=== PATIENT | female | born 1980 | race African-American/Black ===

== ENCOUNTER 2018-01-20 14:13 | Inpatient (IN) | payer MEDICARE, SELFPAY ==
[2018-01-20] VITALS (12 sets, daily range): BP systolic 127–160; BP diastolic 56–78; PULSE 78–99; RESP 11–21; TEMP 36.6–37.4; O2SAT 96–100; BMI 25.2; BMI 24.5
[2018-01-20 14:26] LABS: Bedside Glucose 497 mg/dL (70-110)
--- NOTE | 2018-01-20 14:39 | NURSING ---
NO OLD EKG'S IN MUSE
--- NOTE | 2018-01-20 14:52 | NURSING ---
NO OLD EKGS
[2018-01-20] MEDS: Morphine 4 MG/ML Syringe IV (14:53)
[2018-01-20] MEDS: Ondansetron 4 MG/2 ML Vial IV (14:53)
[2018-01-20] MEDS: 0.9% Normal Saline 1,000 ML 999 ML IV (14:53)
[2018-01-20 14:57] LABS: Absolute Lymphocyte Count 0.38 X10^3/ul (0.83-4.51); Absolute Neutrophil Count 5.8 X10^3/uL (2.0-7.7); Basophil# 0.01 X10^3/uL; Basophil% 0.2 % (0-1); Differential Indicated SCAN CRITERIA MET; Eosinophil# 0.01 X10^3/uL; Eosinophils% 0.2 % (0-5); Hematocrit 34.8 % (37-47); Hemoglobin 11.7 g/dl (12.0-15.0); Lymphocyte # 0.38 X10^3/ul (4.0); Lymphocyte % 5.9 % (19-41); Mean Corp Hgb Conc 33.6 g/gl (32-36); Mean Corpuscular Hgb 27.7 pg (27.0-32.0); Mean Corpuscular Volume 82.3 fL (81-99); Mean Platelet Vol. 12.1 fl (6.2-12.0); Monocyte# 0.25 X10^3/uL; Monocyte% 3.9 % (0-10); Neutrophil # 5.84 X10^3/uL (2.7-7.7); Neutrophil % 89.8 % (47-70); POSITIVE COUNT NO; POSITIVE DIFFERENTIAL YES; POSITIVE MORPHOLOGY NO; Platelet Count 184 K/mm3 (150-450); RBC Distribution Width CV 14.3 % (11.6-14.6); RBC Distribution Width SD 43.2 fl (35.1-43.9); Red Blood Count 4.23 M/mm3 (4.2-5.4); White Blood Count 6.5 K/mm3 (4.4-11.0)
[2018-01-20 15:01] LABS: Blood Gas Specimen Type VEN; Time Given 1450; VBG BASE EXCESS -5 mmol/L (-1.0-3.5); VBG Bicarbonate 20 mmol/L (22-26); VBG Oxygen Content 21 mmol/L (23-33); VBG PO2 50 mmHg (25-40); VBG SO2 85 % (50-70); VBG pCO2 33.7 mmHg (41-51); VBG pH 7.39 (7.32-7.42)
--- NOTE | 2018-01-20 15:10 | NURSING ---
CALLED [facility], TALKED TO TANGELA IN RELEASE OF INFO. HE IS GOING TO FAX RECENT DISCHARGE LEO , H AND P, MED LIST AND EKG
[2018-01-20 15:19] LABS: Anion Gap 14 (5-15); BUN 27 mg/dL (7-18); Calcium,Total 10.1 mg/dL (8.5-10.1); Chloride 100 mmol/L (98-107); Creatinine, Serum 2.07 mg/dL (0.55-1.02); EST Glomerular Filtration Rate 28 mL/min (>60); Est Glom Filt Rate - Afr Amer 34 mL/min (>60); Estimated Creatinine Clearance 34.16 ml/min; Glucose 556 mg/dL (74-106); Potassium 4.2 mmol/L (3.5-5.1); Sodium Level 134 mmol/L (136-145)
[2018-01-20 15:20] LABS: Bedside Glucose > 500 mg/dL (70-110)
[2018-01-20 15:23] LABS: Hemoglobin A1c 12.3 % (4.2-6.3)
--- NOTE | 2018-01-20 15:31 | NURSING ---
PER LAB PT GLUCOSE 556. DR HAYDEN AWARE, INSULIN ORDERED.
[2018-01-20] MEDS: Insulin Lispro 100 UNIT/ML INSULN.PEN 14 UNIT SC (15:39)
--- NOTE | 2018-01-20 16:01 | ED.VISSUMM ---
- ER Visit Summary Date of Service: 01/20/18 Chief Complaint: Back pain History of Present Illness: The patient is a 37 F who gets all of her health care at [facility]. She is a poor informant. She reports that she has back pain that began yesterday and believes this is because she is sleeping on a water bed. Patient also complains of chills. She has been nauseated and vomited 5 times. No blood or emesis. No chest pain, cough, or shortness of breath. No abdominal pain or diarrhea. No dysuria or frequency. She is on her menstrual cycle now. She has generalized weakness. Patient has a complicated past medical history. She has a history of type 1 diabetes mellitus that was diagnosed at 10 years of age. She has had a kidney transplant and toes amputated previously. She also has a history of a colostomy which has been reversed, tracheostomy, and debridement for necrotizing fasciitis. Physical Examination: Vitals: Stable. Afebrile. General: Well-nourished and well-developed. Head: Normocephalic atraumatic. Neck: Supple, no lymphadenopathy. No JVD. Nontender. Cardiovascular: Regular rate and rhythm. No murmurs. Respiratory: No respiratory distress. Clear to auscultation bilaterally. Abdominal: Soft, nontender, nondistended, normal bowel sounds. No guarding, rebound, or peritoneal signs. Back: Mild diffuse tenderness palpation over her lumbar spine the paraspinous muscular and lumbar region Extremities: Nontender, no edema. Skin: Normal color, no rash. Neurologic: Alert and oriented ?3. Cranial nerves II through XII are intact. Normal strength and sensation. Psych: Depressed affect. Test Results: EKG is sinus at 82 with a T-wave inversion in lead II. She has LVH with repolarization changes. This is unchanged from EKG obtained from [place] December 172016. CBC is more for an H&H 11.7 34.8, 7 neutrophils 90, lymphocytes 6. Chem-7 is more for sodium 134, CO2 20, glucose of 556, BUN 27, creatinine 2.07. Of note her last creatinine was 2.83. Serum ketones are negative. ABG shows pH 7.39 with bicarb of 33.7. Hemoglobin A1c is 12.3. Emergency Department Course and Treatment: Patient was given a dose of morphine and Zofran IV. She was given a dose of lispro subcu. Treatment Plan: Patient was discussed with Dr. Sen and she asked that we start the patient on a insulin drip. She will be admitted to the ICU for further evaluation and treatment. Disposition: Admitted in improved condition. Impression: 1. Hyperglycemia. 2. Insulin-dependent diabetes mellitus. 3. Back pain. 4. History of renal transplant. 5. Critical care time 30 minutes. This note was generated with [employer] dictation software. It may contain incorrect words, spelling, and punctuation that were not noted in review of the chart prior to signing ED Disposition - Plan for ED Patient: Chief Complaint: Hyperglycemia Referrals: Care Physician,No Primary [Primary Care Provider] -
--- NOTE | 2018-01-20 16:04 | NURSING ---
ICU HHS PAINTSIL
--- NOTE | 2018-01-20 16:07 | ED.DCSUM_ITS ---
- ER Visit Summary Date of Service: 01/20/18 Chief Complaint: Back pain History of Present Illness: The patient is a 37 F who gets all of her health care at [facility]. She is a poor informant. She reports that she has back pain that began yesterday and believes this is because she is sleeping on a water bed. Patient also complains of chills. She has been nauseated and vomited 5 times. No blood or emesis. No chest pain, cough, or shortness of breath. No abdominal pain or diarrhea. No dysuria or frequency. She is on her menstrual cycle now. She has generalized weakness. Patient has a complicated past medical history. She has a history of type 1 diabetes mellitus that was diagnosed at 10 years of age. She has had a kidney transplant and toes amputated previously. She also has a history of a colostomy which has been reversed, tracheostomy, and debridement for necrotizing fasciitis. Physical Examination: Vitals: Stable. Afebrile. General: Well-nourished and well-developed. Head: Normocephalic atraumatic. Neck: Supple, no lymphadenopathy. No JVD. Nontender. Cardiovascular: Regular rate and rhythm. No murmurs. Respiratory: No respiratory distress. Clear to auscultation bilaterally. Abdominal: Soft, nontender, nondistended, normal bowel sounds. No guarding, rebound, or peritoneal signs. Back: Mild diffuse tenderness palpation over her lumbar spine the paraspinous muscular and lumbar region Extremities: Nontender, no edema. Skin: Normal color, no rash. Neurologic: Alert and oriented ?3. Cranial nerves II through XII are intact. Normal strength and sensation. Psych: Depressed affect. Test Results: EKG is sinus at 82 with a T-wave inversion in lead II. She has LVH with repolarization changes. This is unchanged from EKG obtained from [place] December 172016. CBC is more for an H&H 11.7 34.8, 7 neutrophils 90 , lymphocytes 6. Chem-7 is more for sodium 134, CO2 20, glucose of 556, BUN 27 , creatinine 2.07. Of note her last creatinine was 2.83. Serum ketones are negative. ABG shows pH 7.39 with bicarb of 33.7. Hemoglobin A1c is 12.3. Emergency Department Course and Treatment: Patient was given a dose of morphine and Zofran IV. She was given a dose of lispro subcu. Treatment Plan: Patient was discussed with Dr. Sen and she asked that we start the patient on a insulin drip. She will be admitted to the ICU for further evaluation and treatment. Disposition: Admitted in improved condition. Impression: 1. Hyperglycemia. 2. Insulin-dependent diabetes mellitus. 3. Back pain. 4. History of renal transplant. 5. Critical care time 30 minutes. This note was generated with [employer] dictation software. It may contain incorrect words, spelling, and punctuation that were not noted in review of the chart prior to signing ED Disposition - Plan for ED Patient: Chief Complaint: Hyperglycemia Referrals: Care Physician,No Primary [Primary Care Provider] -
[2018-01-20 16:11] LABS: Bedside Glucose > 500 mg/dL (70-110)
--- NOTE | 2018-01-20 16:28 | HP.PCM_ITS ---
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 She is s/p kidney transplant in 2011 She had recently moved to the area a couple of weeks ago. Patient is a poor historian, who complains of generalized pain and does not render much information when asked. She says she has been compliant with her medications. States the last time she was admitted was 2 years ago. Denies any fever or chills or dizziness or palpitations. Admits to nausea and vomiting. She has blood sugar per EMS was 544. Sodium was 134, potassium 4.2, chloride was 100, bicarbonate was 20, anion gap was 14, BUN was 27, creatinine was 2.07. She was given 40 units of lispro in the ED. Repeat blood sugar in 30 minutes was more than 500. Patient was started on insulin drip Past Medical History Past Medical History (Chronic Problems): Chronic Problems Hyperglycemia due to type 1 diabetes mellitus (Chronic) DM type 1 (diabetes mellitus, type 1) (Chronic) 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) Allergies furosemide [From Lasix] Allergy (Verified 01/20/18 14:16) Hives Home Medications: Ambulatory Orders Medication Instructions Recorded Albuterol Sulfate [Proair Hfa] 2 puff INHALATION Q6H PRN PRN 01/20/18 Carvedilol [Coreg] 25 mg PO BID 01/20/18 Diphenhydramine HCl [Benadryl 25 mg PO QODAY 01/20/18 Allergy] Famotidine [Pepcid] 20 mg PO BID 01/20/18 Fluticasone 0.05% [Flonase Nasal 2 spray NASAL DAILY 01/20/18 [place]] Gabapentin [Neurontin] 300 mg PO Q12H 01/20/18 Insulin Aspart [Novolog Flexpen 10 - 15 units SC TIDCM 01/20/18 ([facility])] Insulin Glargine,Hum.rec.anlog 32 unit SQ QHS 01/20/18 [Lantus Solostar] Mycophenolate Mofetil 500 mg PO BID 01/20/18 Nifedipine [Nifedipine ER] 60 mg PO BID 01/20/18 Ondansetron HCl [Zofran] 4 mg PO Q8H PRN PRN 01/20/18 Oxycodone HCl [Roxicodone] 5 mg PO BID 01/20/18 Pravastatin [Pravachol] 40 mg PO QHS 01/20/18 Prednisone 5 mg PO DAILY 01/20/18 Tacrolimus Anhydrous [Prograf] 1 mg PO BID 01/20/18 Zolpidem Tartrate [Ambien] 10 mg PO QHS 01/20/18 Surgical History: appendectomy, - - Status post kidney transplant, poor wound debridement, diverting sigmoid colostomy on 07/06/2017, reversed on 07/07/2017, percutaneous tracheostomy, no longer has, left TMA Psychiatric History: No pertinent psych hx 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 Denies: Chills, Fever, Night Sweats, Weight Change Eyes: Denies: Blurred vision, Cataracts, Conjunctivae Inflammation, Pain, Redness, Vision Change HEENT: Denies: Difficulty Swallowing, Dysphasia, Head Aches, Hearing Changes, Nasal bleeding, Nasal Congestion, Sinus Congestion, Sinus Drainage Cardiovascular: Denies: Chest Pain, Claudication, Chest Pressure, Orthopnea, Palpitations, Paroxysmal Noc. Dyspnea Respiratory: Denies: Cough, Hemoptysis, Pleuritic Pain, Shortness of breath at rest, Shortness of breath upon exertion, Sputum production Gastrointestinal: Denies: Abdominal Pain, Constipation, Hematemesis, Hematochezia, Nausea, Vomiting Genitourinary: Denies: Dysuria, Frequency, Incontinence Musculoskeletal: Reports: Back Pain. Denies: Joint Pain, Joint stiffness, Joint swelling, Joint Tenderness Skin: Denies: Pruritis, Rash, Wounds Neurological: Denies: Numbness, Tingling, Focal weakness Psychiatric: Denies: Anxiety, Depression, Homicidal Ideations, Suicidal Ideations Hematologic/ Lymphatic: Denies: Easy Bruising, Easy Bleeding VTE Information - Inpt Only VTE Present on Admission: No VTE Pharm Prophylaxis ordered?: Yes Patient Problems: Active and Suspected Problems Hyperglycemia without ketosis (Acute) - Physical Exam General: Alert, Oriented x3, Cooperative, Lethargic HEENT: Atraumatic, PERRLA, EOMI, Normocephalic Oral: Dry Mucosa Neck: Supple Lungs: Clear to auscultation, Normal air movement Cardiovascular: Regular rate, Regular Rhythm, Normal S1, Normal S2, No murmurs Abdomen: Bowel Sounds Present, Soft, Non Tender, Non-Distended, No Hepato- splenomegaly Extremities: No edema Skin: - - Skin graft area with contractures Musculoskeletal: No Tenderness to Palpation of Joints or Extremities, - - Left TMA Lymphatic: No Cervical, Supraclavicular, or Inguinal Adenopathy Neurological: Cranial nerves II-XII grossly intact, Neuro grossly intact Psych/Mental Status: Normal Affect, Appropriate Vital Signs Temp Pulse Resp BP Pulse Ox 99.3 F H 81 16 146/78 H 99 01/20/18 14:17 01/20/18 16:10 01/20/18 16:10 01/20/18 16:10 01/20/18 16:10 Assessment/Plan All Active Problems Hyperglycemia without ketosis (Acute) 37 year old F with past medical history of type I DM(diabetic since age 10) status post kidney transplant, being managed by [facility], on Lantus 32 units daily, NovoLog 10-15 units 3 times daily. She is s/p kidney transplant in 2011 1. Acute HHS, no DKA seen, type I diabetic placated by retinopathy, neuropathy, vascular complication(s/p TMA) HbA1c is 12.3 anion gap is 14, started on insulin drip, patient is dehydrated, suspect patient is noncompliant with medications although she states otherwise. Plan: We will admit to PCU, hydrate with IV fluids, continue low insulin drip at 0.05 U/h, will switch to home Lantus with lispro pre-meal blood sugars drop below 250, BMP every hourly whilst on insulin drips but Q4hrly when off insulin drip. 2. Hypertension, controlled, on carvedilol, nifedipine, continue to monitor 3. CKD stage 3, status post kidney transplant, will continue on transplant medication 4. Back pain, likely muscleskeletal, continue on home as needed oxycodone 5. DVT PPx- Heparin SC Code Visit Inpatient E&M: 56931 Subs Hosp L2
[2018-01-20] MEDS: 0.9% Normal Saline 1,000 ML 125 ML IV (17:09)
[2018-01-20 17:26] LABS: Bedside Glucose 421 mg/dL (70-110)
[2018-01-20 18:15] LABS: Bedside Glucose 371 mg/dL (70-110)
[2018-01-20 18:49] LABS: BUN 27 mg/dL (7-18); Creatinine, Serum 1.96 mg/dL (0.55-1.02); Glucose 455 mg/dL (74-106)
[2018-01-20 18:50] LABS: Anion Gap 7 (5-15); BUN/Creat Ratio 13.8 RATIO (10-20); Calcium,Total 9.4 mg/dL (8.5-10.1); Chloride 106 mmol/L (98-107); EST Glomerular Filtration Rate 30 mL/min (>60); Est Glom Filt Rate - Afr Amer 37 mL/min (>60); Estimated Creatinine Clearance 36.08 ml/min; Potassium 3.6 mmol/L (3.5-5.1); Sodium Level 137 mmol/L (136-145)
[2018-01-20 19:36] LABS: Bedside Glucose 297 mg/dL (70-110)
[2018-01-20 20:16] LABS: Bedside Glucose 254 mg/dL (70-110)
[2018-01-20] MEDS: Mycophenolate Mofetil 250 MG Capsule 500 MG PO (21:25)
[2018-01-20] MEDS: Gabapentin 300 MG Capsule PO (21:25)
[2018-01-20] MEDS: Zolpidem Tartrate 5 MG Tablet 10 MG PO (21:25)
[2018-01-20] MEDS: Pravastatin 40 MG Tablet PO (21:25)
[2018-01-20] MEDS: Docusate Sodium 100 MG Capsule PO (21:25)
[2018-01-20] MEDS: NIFEdipine 60 MG Tablet PO (21:26)
[2018-01-20] MEDS: Tacrolimus Anhydrous 1 MG Capsule PO (21:26)
[2018-01-20] MEDS: Carvedilol 25 MG Tablet PO (21:26)
[2018-01-20 21:32] LABS: Anion Gap 9 (5-15); BUN 23 mg/dL (7-18); BUN/Creat Ratio 13.2 RATIO (10-20); Calcium,Total 9.5 mg/dL (8.5-10.1); Chloride 108 mmol/L (98-107); Creatinine, Serum 1.74 mg/dL (0.55-1.02); EST Glomerular Filtration Rate 35 mL/min (>60); Est Glom Filt Rate - Afr Amer 42 mL/min (>60); Estimated Creatinine Clearance 40.64 ml/min; Glucose 268 mg/dL (74-106); Potassium 3.7 mmol/L (3.5-5.1); Sodium Level 140 mmol/L (136-145)
[2018-01-20] MEDS: oxyCODONE 5 MG Tablet PO (21:34)
--- NOTE | 2018-01-20 22:08 | NURSING ---
Attempted IV restart x 2, unable to obtain. Called TERRI Cui [employer] to restart IV.
--- NOTE | 2018-01-20 23:37 | NURSING ---
patient received 6.64 units of humalog (insulin gtt) from [id number]
[2018-01-21] VITALS (11 sets, daily range): BP systolic 148–154; BP diastolic 72–78; PULSE 78–89; RESP 16–20; TEMP 36.6–37.7; O2SAT 97–100
[2018-01-21 00:01] LABS: Bedside Glucose 280 mg/dL (70-110)
[2018-01-21] MEDS: 0.9% Normal Saline 1,000 ML 75 ML IV ×2 (04:10→15:13)
[2018-01-21 05:00] LABS: Mucous, Urine 0 SEEN /hpf (<or=2+); White Blood Cells 0 SEEN /hpf (0-5)
[2018-01-21 05:03] LABS: Color, Urine Yellow (Yellow); Glucose, Dipstick 1000 mg/dl (Normal); Ketone-Dipstick 15 mg/dl (Negative); Leukocyte Esterase-Dipstick Negative /ul (Negative); Nitrite-Dipstick Negative (Negative); Occult Blood-Urine 250 /ul (Negative); Protein-Dipstick 30 mg/dl (Negative); Specific Gravity, Urine 1.005 (1.002-1.030); Urine Bilirubin Dipstick Negative (Negative); Urine Clarity Clear (Clear); Urine Urobilinogen Normal (Normal)
[2018-01-21 05:09] LABS: Bacteria RARE /hpf (None Seen); Red Blood Cells-Urine 0-5 SEEN /hpf (0-5); Squamous Epithelial Cells - UA 0-5 SEEN /hpf (5-10)
[2018-01-21 06:33] LABS: Anion Gap 9 (5-15); BUN 21 mg/dL (7-18); BUN/Creat Ratio 12.1 RATIO (10-20); Chloride 111 mmol/L (98-107); Creatinine, Serum 1.74 mg/dL (0.55-1.02); EST Glomerular Filtration Rate 35 mL/min (>60); Est Glom Filt Rate - Afr Amer 42 mL/min (>60); Estimated Creatinine Clearance 40.64 ml/min; Glucose 282 mg/dL (74-106); Sodium Level 141 mmol/L (136-145)
[2018-01-21 06:38] LABS: Absolute Lymphocyte Count 0.51 X10^3/ul (0.83-4.51); Absolute Neutrophil Count 4.5 X10^3/uL (2.0-7.7); Basophil# 0.01 X10^3/uL; Basophil% 0.2 % (0-1); Hematocrit 32.8 % (37-47); Hemoglobin 10.9 g/dl (12.0-15.0); Lymphocyte # 0.51 X10^3/ul (4.0); Lymphocyte % 9.6 % (19-41); Mean Corp Hgb Conc 33.2 g/gl (32-36); Mean Corpuscular Hgb 27.4 pg (27.0-32.0); Mean Corpuscular Volume 82.4 fL (81-99); Mean Platelet Vol. 12.1 fl (6.2-12.0); Monocyte# 0.36 X10^3/uL; Monocyte% 6.7 % (0-10); Neutrophil # 4.46 X10^3/uL (2.7-7.7); Neutrophil % 83.5 % (47-70); Platelet Count 184 K/mm3 (150-450); RBC Distribution Width CV 14.6 % (11.6-14.6); RBC Distribution Width SD 44.3 fl (35.1-43.9); Red Blood Count 3.98 M/mm3 (4.2-5.4); White Blood Count 5.3 K/mm3 (4.4-11.0)
[2018-01-21 06:46] LABS: Differential Indicated SCAN CRITERIA MET; POSITIVE COUNT NO; POSITIVE DIFFERENTIAL YES; POSITIVE MORPHOLOGY NO
[2018-01-21 06:55] LABS: Bedside Glucose 276 mg/dL (70-110)
[2018-01-21 07:10] LABS: Differential Comment SCANNED
[2018-01-21] MEDS: Insulin Lispro 100 UNIT/ML INSULN.PEN SC ×3 (08:33→16:27)
[2018-01-21] MEDS: predniSONE 5 MG Tablet PO (08:34)
[2018-01-21] MEDS: Mycophenolate Mofetil 250 MG Capsule 500 MG PO ×2 (08:35→22:15)
[2018-01-21] MEDS: Docusate Sodium 100 MG Capsule PO ×2 (08:36→22:15)
[2018-01-21] MEDS: Carvedilol 25 MG Tablet PO ×2 (08:36→22:14)
[2018-01-21] MEDS: Fluticasone 0.05% 1 SPRAY NASAL.SRY 2 SPRAY NASAL (08:36)
[2018-01-21] MEDS: Famotidine 20 MG Tablet PO (08:37)
[2018-01-21] MEDS: Gabapentin 300 MG Capsule PO ×2 (08:37→22:15)
[2018-01-21] MEDS: NIFEdipine 60 MG Tablet PO ×2 (08:38→22:13)
[2018-01-21] MEDS: Tacrolimus Anhydrous 1 MG Capsule PO ×2 (08:38→22:14)
[2018-01-21 10:10] LABS: Bedside Glucose 230 mg/dL (70-110)
[2018-01-21] MEDS: Acetaminophen 325 MG Tablet 650 MG PO (10:34)
[2018-01-21] MEDS: Morphine 2 MG/ML Syringe 1 MG IV ×2 (10:35→22:13)
[2018-01-21] MEDS: Insulin Lispro 100 UNIT/ML INSULN.PEN 10 UNIT SC ×2 (11:25→16:27)
[2018-01-21 11:41] LABS: Bedside Glucose 269 mg/dL (70-110)
--- NOTE | 2018-01-21 12:00 | CASEMGMT ---
SEE TERRI PINZON ASSESS LINK: D/C PLAN: Home Intro role to TERRI PINZON. Pt resting in bed, awake. @ bedside. Pt and willing to participate in assessment and all questions answered. Pt states just moved here from [place] and has not established PCP yet. Given list of local PCP's in [facility]. Pt also reports she does have insurance but could not find her Insurance card. Pt reports she has Medicare and Medicaid. Pt reports she has a glucometer @ home and states that it is working but states, I should probably get a new one. Pt declines offer of TERRI PINZON to get script for a new glucometer, stating that she gets all of her diabetic supplies and meds via [facility] and that she gets it all free and prefers to go through them. Pt reports she just recently filed paperwork for assistance with housing. Pt reports she has a lot of family support and declines any SNF or HHC at this time. Referral made to Mae BARRIGA for Adv Directives and for financial issues/resources in the Community. CM to follow for discharge planning needs that may arise. Cristhian MARYN TERRI PINZON
--- NOTE | 2018-01-21 13:22 | CASEMGMT ---
Social Work: Met with patient in room with present. Patient listed as self pay but patient indicates that she has both Medicare and Medicaid ([place]). Patient provided this SW with Medicare number. Patient states she is aware of the process needed to transfer her Medicaid to [place] and plans to work on this when she is discharged from hospital. Patient also requesting information on Advanced Directives. TC to in PFS. looked up Medicare number on the Medicare system and patient is showing eligible. updated [place] with patient's insurance information. Spoke with patient and in room again. Patient aware that Medicare information is updated in [facility] system. Patient also given Advance Directive forms but does not want to fill them out yet at this point. TERRI Stover, CM updated. Sw to continue to follow to assist as needed if needs arise. NANY Rodriguez
--- NOTE | 2018-01-21 14:41 | PCM.PN.HOSP ---
Patient Problems: Active and Suspected Problems Hyperglycemia without ketosis (Acute) Subjective: Patient was seen and examined. Complains of severe back pain. Blood sugars are better controlled Objective: Physical Exam General: Alert, Oriented x3, Cooperative, Lethargic HEENT: Atraumatic, PERRLA, EOMI, Normocephalic Oral: Dry Mucosa Neck: Supple Lungs: Clear to auscultation, Normal air movement Cardiovascular: Regular rate, Regular Rhythm, Normal S1, Normal S2, No murmurs Abdomen: Bowel Sounds Present, Soft, Non Tender, Non-Distended, No Hepato-splenomegaly Extremities: No edema Skin: - - Skin graft area with contractures Musculoskeletal: No Tenderness to Palpation of Joints or Extremities, - - Left TMA Lymphatic: No Cervical, Supraclavicular, or Inguinal Adenopathy Neurological: Cranial nerves II-XII grossly intact, Neuro grossly intact Psych/Mental Status: Normal Affect, Appropriate Vitals/I&O's: Vital Signs Temp Pulse Resp BP Pulse Ox 98 F 86 16 150/78 H 97 01/21/18 09:38 01/21/18 10:54 01/21/18 09:38 01/21/18 09:38 01/21/18 09:38 Oxygen Delivery Method Room Air Weight: 70.4 kg Body Mass Index (BMI) 24.5 Finger Stick Blood Glucose 254 Intake and Output for Last 24 Hours 01/19/18 01/20/18 01/21/18 23:59 23:59 23:59 Intake Total 1994. / 1994.1 1234 / 1234 Output Total 450 / 450 Balance 1545.1 / 1545.1 1234 / 1234 Laboratory Results 01/20/18 17:05: Sodium 137, Potassium 3.6, Chloride 106, Carbon Dioxide 24.0, Anion Gap 7, BUN 27 H, Creatinine 1.96 H, Estim Creat Clear Calc 36.08, Est GFR (MDRD) Af Amer 37 L, Est GFR (MDRD) Non-Af 30 L, BUN/Creatinine Ratio 13.8, Glucose 455 H*, Calcium 9.4 01/20/18 17:05: Troponin I < 0.015 01/20/18 17:12: POC Glucose 421 H 01/20/18 18:08: POC Glucose 371 H 01/20/18 19:07: POC Glucose 297 H 01/20/18 20:06: POC Glucose 254 H 01/20/18 20:38: Sodium 140, Potassium 3.7, Chloride 108 H, Carbon Dioxide 23.0, Anion Gap 9, BUN 23 H, Creatinine 1.74 H, Estim Creat Clear Calc 40.64, Est GFR (MDRD) Af Amer 42 L, Est GFR (MDRD) Non-Af 35 L, BUN/Creatinine Ratio 13.2, Glucose 268 H, Calcium 9.5 01/20/18 20:38: Troponin I 0.023 01/20/18 21:06: POC Glucose 230 H 01/20/18 23:54: POC Glucose 280 H 01/20/18 : Urine Color Yellow, Urine Clarity Clear, Urine pH 7.0, Ur Specific [place] 1.005, Urine Protein 30 H, Urine Glucose (UA) 1000 H, Urine Ketones 15 H, Urine Occult Blood 250 H, Urine Nitrite Negative, Urine Bilirubin Negative, Urine Urobilinogen Normal, Ur Leukocyte Esterase Negative, Urine RBC 0-5 SEEN, Urine WBC 0 SEEN, Ur Squamous Epith Cells 0-5 SEEN, Urine Bacteria RARE, Urine Mucus 0 SEEN 01/21/18 05:37: WBC 5.3, RBC 3.98 L, Hgb 10.9 L, Hct 32.8 L, MCV 82.4, MCH 27.4, MCHC 33.2, RDW 14.6, RDW Differential 44.3 H, Plt Count 184, MPV 12.1 H, Immature Gran % (Auto) 0.000, Neut % (Auto) 83.5 H, Lymph % (Auto) 9.6 L, [place] % (Auto) 6.7, Eos % (Auto) 0.0, Baso % (Auto) 0.2, Absolute Neuts (auto) 4.5, Absolute Lymphs (auto) 0.51 L, Total Counted Not Reportable, Differential Comment SCANNED 01/21/18 05:37: Sodium 141, Potassium 4.0, Chloride 111 H, Carbon Dioxide 21.0, Anion Gap 9, BUN 21 H, Creatinine 1.74 H, Estim Creat Clear Calc 40.64, Est GFR (MDRD) Af Amer 42 L, Est GFR (MDRD) Non-Af 35 L, BUN/Creatinine Ratio 12.1, Glucose 282 H, Calcium 9.0, Magnesium 2.0 01/21/18 06:45: POC Glucose 276 H 01/21/18 11:21: POC Glucose 269 H Current Medications Acetaminophen (Tylenol) 650 mg PO Q6H PRN PRN PRN Reason: PAIN Last Admin: 01/21/18 10:34 Dose: 650 mg Carvedilol (Coreg) 25 mg PO BID [facility] Last Admin: 01/21/18 08:36 Dose: 25 mg Dextrose (D50w Syringe) 0 gm IV X1 PRN; Protocol PRN Reason: HYPOGLYCEMIA Dextrose (D50w Syringe) 0 gm IV X1 PRN; Protocol PRN Reason: Hypoglycemia Diphenhydramine HCl (Benadryl) 25 mg PO QODAY [facility] Docusate Sodium (Colace) 100 mg PO BID [facility] Last Admin: 01/21/18 08:36 Dose: 100 mg Famotidine (Pepcid) 20 mg PO DAILY [facility] Last Admin: 01/21/18 08:37 Dose: 20 mg Fluticasone Propionate (Flonase Nasal [place]) 2 spray NASAL DAILY [facility] Last Admin: 01/21/18 08:36 Dose: 2 spray Gabapentin (Neurontin) 300 mg PO BID [facility] Last Admin: 01/21/18 08:37 Dose: 300 mg Glucagon () 1 mg IM .X1 PRN PRN Reason: Hypoglycemia Heparin Sodium (Porcine) (Heparin Na) 5,000 unit SC Q8 [facility] Last Admin: 01/21/18 12:53 Dose: Not Given Sodium Chloride () 1,000 mls @ 999 mls/hr IV .Q1H1M ONE Last Admin: 01/20/18 14:53 Dose: 999 mls/hr Sodium Chloride () 1,000 mls @ 75 mls/hr IV .[id number] [facility] Last Admin: 01/21/18 04:10 Dose: 75 mls/hr Insulin Glargine (Lantus (Bkc)) 32 units SC QHS [facility] Insulin Human Lispro (Humalog Kwikpen (Bkc)) 0 unit SC ACHS [facility] PRN Reason: Protocol Last Admin: 01/21/18 11:25 Dose: 9 u Insulin Human Lispro (Humalog Kwikpen (Bkc)) 10 unit SC TIDCM [facility] Last Admin: 01/21/18 11:25 Dose: 10 u Magnesium Hydroxide (Milk Of Magnesia) 30 ml PO DAILY PRN PRN Reason: Constipation Menthol (Bengay Vanishing Scent) 1 applic TOPICAL 4X/DAY PRN PRN PRN Reason: pain Morphine Sulfate () 1 mg IV Q4H PRN PRN PRN Reason: SEVERE PAIN (6-10/10) Last Admin: 01/21/18 10:35 Dose: 1 mg Mycophenolate Mofetil (Cellcept) 500 mg PO BID [facility] Last Admin: 01/21/18 08:35 Dose: 500 mg Nifedipine (Procardia Xl) 60 mg PO BID [facility] Last Admin: 01/21/18 08:38 Dose: 60 mg Oxycodone HCl (Oxyir) 5 mg PO Q6H PRN PRN PRN Reason: SEVERE PAIN (6-1010) Last Admin: 01/20/18 21:34 Dose: 5 mg Pravastatin Sodium (Pravachol) 40 mg PO QHS [facility] Last Admin: 01/20/18 21:25 Dose: 40 mg [facility] () [facility] Last Admin: 01/21/18 08:34 Dose: 5 mg Psyllium Hydrophilic Mucilloid (Metamucil) 1 packet PO DAILY PRN PRN PRN Reason: CONSTIPATION Sodium Chloride () 5 - 30 ml IV UD PRN PRN Reason: SALINE FLUSH Tacrolimus (Prograf) 1 mg PO BID [facility] Last Admin: 01/21/18 08:38 Dose: 1 mg Zolpidem Tartrate (Ambien (Generic)) 10 mg PO QHS [facility] Last Admin: 01/20/18 21:25 Dose: 10 mg Medical Necessity - Tobacco Use Smoking Status: Never smoker Tobacco Use: Non-smoker Assessment/Plan All Active Problems Hyperglycemia without ketosis (Acute) 37 year old F with past medical history of type I DM(diabetic since age 10) status post kidney transplant, being managed by [facility], on Lantus 32 units daily, NovoLog 10-15 units 3 times daily. She is s/p kidney transplant in 2011 1. Acute HHS, resolved, BS are better controlled. Patient admits to having missed her Lantus insulin but was taking only lispro because someone took a Lantus. 2. Type I DM, complicated by retinopathy, neuropathy and vascular complications status post TMA, HbA1c is 12.3, blood sugars are better controlled, will continue on patient's home insulin 3. Hypertension, controlled, on carvedilol, nifedipine, continue to monitor 4. CKD stage 3, status post kidney transplant, will continue on transplant medication 5. Back pain, likely muscleskeletal, continue on Tylenol, trial of Flexeril, oxycodone 6. DVT PPx- Heparin SC Code Visit Inpatient E&M: 90546 Subs Hosp L2
[2018-01-21 16:36] LABS: Bedside Glucose 192 mg/dL (70-110)
[2018-01-21 22:11] LABS: Bedside Glucose 116 mg/dL (70-110)
[2018-01-21] MEDS: Zolpidem Tartrate 5 MG Tablet 10 MG PO (22:14)
[2018-01-21] MEDS: oxyCODONE 5 MG Tablet PO (22:14)
[2018-01-21] MEDS: Pravastatin 40 MG Tablet PO (22:15)
[2018-01-22] MEDS: 0.9% Normal Saline 1,000 ML 75 ML IV (01:10)
[2018-01-22 02:15] VITALS: BP 142/71; PULSE 87; RESP 16; TEMP 37.5; O2SAT 97
[2018-01-22 02:56] VITALS: PULSE 86
[2018-01-22 07:00] LABS: Bedside Glucose 140 mg/dL (70-110)
[2018-01-22 07:12] VITALS: PULSE 88
[2018-01-22 08:15] VITALS: BP 154/59; PULSE 90; RESP 16; TEMP 37.9; O2SAT 100
[2018-01-22] MEDS: Fluticasone 0.05% 1 SPRAY NASAL.SRY 2 SPRAY NASAL (09:24)
[2018-01-22] MEDS: Tacrolimus Anhydrous 1 MG Capsule PO (09:25)
[2018-01-22] MEDS: Carvedilol 25 MG Tablet PO (09:25)
[2018-01-22] MEDS: Famotidine 20 MG Tablet PO (09:25)
[2018-01-22] MEDS: Gabapentin 300 MG Capsule PO (09:25)
[2018-01-22] MEDS: DiphenhydrAMINE 25 MG Capsule PO (09:26)
[2018-01-22] MEDS: Mycophenolate Mofetil 250 MG Capsule 500 MG PO (09:26)
[2018-01-22] MEDS: predniSONE 5 MG Tablet PO (09:26)
[2018-01-22] MEDS: NIFEdipine 60 MG Tablet PO (09:26)
[2018-01-22] MEDS: Insulin Lispro 100 UNIT/ML INSULN.PEN 10 UNIT SC (09:29)
[2018-01-22] MEDS: Morphine 2 MG/ML Syringe 1 MG IV (09:35)
[2018-01-22 09:36] LABS: Anion Gap 7 (5-15); BUN 15 mg/dL (7-18); BUN/Creat Ratio 7.8 RATIO (10-20); Calcium,Total 8.4 mg/dL (8.5-10.1); Chloride 111 mmol/L (98-107); Creatinine, Serum 1.93 mg/dL (0.55-1.02); EST Glomerular Filtration Rate 31 mL/min (>60); Est Glom Filt Rate - Afr Amer 37 mL/min (>60); Estimated Creatinine Clearance 36.64 ml/min; Glucose 141 mg/dL (74-106); Potassium 3.6 mmol/L (3.5-5.1); Sodium Level 142 mmol/L (136-145)
[2018-01-22] MEDS: Acetaminophen 325 MG Tablet 650 MG PO (09:36)
--- NOTE | 2018-01-22 11:15 | PCM.DC ---
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) Reason(s) for Visit for Discharge Instructions: Hyperglycemia, Acute kidney injury on Chronic kidney disease You will use the following diet at home:: Calorie/Carbohydrate Controlled (specify 1200, 1400, etc), Renal (restricted protein/sodium) Your food should be the consistency of: Regular Your liquids should be the consistency of: Regular/Thin Discharge Activity: Return to Normal Activity Allergies/Adverse Reactions: Allergies furosemide [From Lasix] Allergy (Verified 01/20/18 14:16) Hives Medications to take at Discharge Albuterol Sulfate [Proair Hfa] 2 puff INHALATION Q6H PRN PRN 01/20/18 Carvedilol [Coreg] 25 mg PO BID 01/20/18 Diphenhydramine HCl [Benadryl Allergy] 25 mg PO QODAY 01/20/18 Famotidine [Pepcid] 20 mg PO BID 01/20/18 Fluticasone 0.05% [Flonase Nasal [place]] 2 spray NASAL DAILY 01/20/18 Gabapentin [Neurontin] 300 mg PO Q12H 01/20/18 Insulin Aspart [Novolog Flexpen] 10 - 15 units SC TIDCM 01/20/18 Insulin Glargine,Hum.rec.anlog [Lantus Solostar] 32 unit SQ QHS 01/20/18 Mycophenolate Mofetil 500 mg PO BID 01/20/18 Nifedipine [Nifedipine ER] 60 mg PO BID 01/20/18 Ondansetron HCl [Zofran] 4 mg PO Q8H PRN PRN 01/20/18 Oxycodone HCl [Roxicodone] 5 mg PO BID 01/20/18 Pravastatin [Pravachol] 40 mg PO QHS 01/20/18 Prednisone 5 mg PO DAILY 01/20/18 Tacrolimus Anhydrous [Prograf] 1 mg PO BID 01/20/18 Zolpidem Tartrate [Ambien] 10 mg PO QHS 01/20/18 Acetaminophen [Tylenol Tablet] 650 mg PO Q6H PRN PRN tablet 01/22/18 Cyclobenzaprine [Flexeril] 10 mg PO TID PRN #10 tab 01/22/18 The following prescriptions were given: Cyclobenzaprine [Flexeril] 10 mg PO TID PRN #10 tab PRN Reason: Severe Pain (-03/12) Orders to be completed after discharge: Basic Metabolic Profile (BMP) Time Frame: 1 Week, Location: Laboratory CBC W/Diff, Automated Time Frame: 1 Week, Location: Laboratory Primary Care Physician: Care Physician,No Primary [Primary Care Provider] - Please follow up with your Primary Care Physician in: within 1-2 weeks Test Results: Test results from this visit will be discussed in further detail at your follow-up appointment, if applicable. When: Pipe Out Worker - make appointment within 2 weeks When: Time Analysis Clerk -make appointment within 2 weeks Proposed Discharge Date: 01/22/18
--- NOTE | 2018-01-22 11:18 | PCM.DC.SUM ---
Discharge Date and Diagnosis Date of Admission: 01/20/18 Date of Discharge: 01/22/18 - Primary Discharge Diagnosis Active and Suspected Problems Hyperglycemia without ketosis (Acute) Acute back pain, musculoskeletal - Secondary Discharge Diagnosis Chronic Problems Hyperglycemia due to type 1 diabetes mellitus (Chronic) DM type 1 (diabetes mellitus, type 1) (Chronic) 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 Correlation with ultrasound is recommended. Atrophy of the [place] kidneys. A transplanted kidney is seen in the right lower abdomen. Electronically Signed: Roger Griffith MD at 12:26 EDT Tel [phone], Service support , None Operations: None Procedures: None Summary of Care Provided: 37 year old F with past medical history of type I DM(diabetic since age 10) status post kidney transplant, being managed by [facility], on Lantus 32 units daily, NovoLog 10-15 units 3 times daily. She is s/p kidney transplant in 2011, missed a couple of doses of her Lantus, comes in with hyperglycemia, lethargy and complains of severe back pain. 1. Acute HHS, resolved, blood sugars were better controlled with short term IV insulin, later resumed on her home regimen, prescriptions given for home Lantus and lispro. 2. Type I DM, complicated by retinopathy, neuropathy and vascular complications status post TMA, HbA1c is 12.3, managed as above. 3. Hypertension, controlled, on carvedilol, nifedipine 4. CKD stage 3, status post kidney transplant, on post transplant medications 5. Back pain, likely muscleskeletal, managed on Tylenol, trial of Flexeril, oxycodone Discharge Diet: Low fat/ Low Cholesterol, 2000 mg Sodium Diet, Carb Control Diet, Renal Diet Discharge Activity: Return to Normal Activity Home Medications: Medications to take at Discharge Albuterol Sulfate [Proair Hfa] 2 puff INHALATION Q6H PRN PRN 01/20/18 Carvedilol [Coreg] 25 mg PO BID 01/20/18 Diphenhydramine HCl [Benadryl Allergy] 25 mg PO QODAY 01/20/18 Famotidine [Pepcid] 20 mg PO BID 01/20/18 Fluticasone 0.05% [Flonase Nasal [place]] 2 spray NASAL DAILY 01/20/18 Gabapentin [Neurontin] 300 mg PO Q12H 01/20/18 Mycophenolate Mofetil 500 mg PO BID 01/20/18 Nifedipine [Nifedipine ER] 60 mg PO BID 01/20/18 Ondansetron HCl [Zofran] 4 mg PO Q8H PRN PRN 01/20/18 Oxycodone HCl [Roxicodone] 5 mg PO BID 01/20/18 Pravastatin [Pravachol] 40 mg PO QHS 01/20/18 Prednisone 5 mg PO DAILY 01/20/18 Tacrolimus Anhydrous [Prograf] 1 mg PO BID 01/20/18 Zolpidem Tartrate [Ambien] 10 mg PO QHS 01/20/18 Acetaminophen [Tylenol Tablet] 650 mg PO Q6H PRN PRN tablet 01/22/18 Cyclobenzaprine [Flexeril] 10 mg PO TID PRN #10 tab 01/22/18 Insulin Aspart [Novolog Flexpen] 10 - 15 units SC TIDCM #1 flexpen 01/22/18 Insulin Detemir [Levemir] 32 unit SQ DAILY #1 vial 01/22/18 Following Prescrptions Were Given to Patient: Insulin Detemir [Levemir] 32 unit SQ DAILY #1 vial Cyclobenzaprine [Flexeril] 10 mg PO TID PRN #10 tab PRN Reason: Severe Pain (-03/12) Insulin Aspart [Novolog Flexpen] 10 - 15 units SC TIDCM #1 flexpen Primary Care Physician: Care Physician,No Primary [Primary Care Provider] - Please follow up with your Primary Care Physician in: within 1-2 weeks When: Content Manager - make appointment within 2 weeks When: Inside Solar Sales Consultant -make appointment within 2 weeks Disposition: Home Minutes spent on discharge:: 45 Patient Condition:: Stable Medical Necessity - Tobacco Use Smoking Status: Never smoker Tobacco Use: Non-smoker Meaningful Use Info Meaningful Use Diagnoses (Choose all that apply): None applicable Code Visit Inpatient E&M: 42849 [facility]
--- NOTE | 2018-01-22 11:45 | CASEMGMT ---
TERRI PINZON NOTE: Spoke with pt re: PT/OT evaluation and recommendation for further Skilled therapy. Pt declines out-pt or HHC services at this time. Pt reports she has made an appt with a PCP in this area. Advised pt to discuss therapy options with her PCP if she decides later she would like some further therapy as an out-pt. Pt voices understanding. Cristhian CARDENAS RN, CM
--- NOTE | 2018-01-22 12:07 | NURSING ---
Pt diaphoretic, and drowsy-checked blood sugar = 47-drank orange juice x2 and is ordering lunch. Will notify
[2018-01-22 12:51] LABS: Bedside Glucose 47 mg/dL (70-110)
[2018-01-22 12:51] LABS: Bedside Glucose 148 mg/dL (70-110)
--- NOTE | 2018-01-22 15:45 | CASEMGMT ---
Addendum entered by Jolanta Hernandez 01/22/18 18:22: Script for small base quad cane obtained and faxed to [facility] @ [phone]. Original Note: Pt to be discharged and requesting cane. Pt reports she used to have one but it broke about a year ago. PT recommended small base quad cane. Offered to have [facility] deliver the cane to her room but pt and state they prefer to pick it up from [facility] on their way home from the hospital. Will obtain script from and fax to [facility].
== END 2018-01-22 15:48 | disposition home or self-care (01) | DRG 638 ==
LOC: ED 14:48 → PCU 16:25
PROVIDERS: Admitting Provider Internal Medicine; Emergency Provider Emergency Medicine; Visit Provider Internal Medicine
DX: E10.65 Type 1 diabetes mellitus with hyperglycemia (principal); Z94.0 Kidney transplant status; Z79.4 Long term (current) use of insulin; E10.22 Type 1 diabetes mellitus with diabetic chronic kidney disease; N18.3 Chronic kidney disease, stage 3 (moderate); Z89.432 Acquired absence of left foot; E10.319 Type 1 diabetes mellitus with unspecified diabetic 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; I12.9 Hypertensive chronic kidney disease with stage 1 through stage 4 chronic kidney disease, or unspecified chronic kidney disease; M54.9 Dorsalgia, unspecified; E10.40 Type 1 diabetes mellitus with diabetic neuropathy, unspecified
CPT/HCPCS: 36415; 74176; 80048; 81001; 82009; 82803; 82962; 83036; 83735; 84484; 85025; 93005; 97162; 97166; 99285; J7030; A4216; J2405

== ENCOUNTER 2018-01-27 13:41 | Inpatient (IN) | payer MEDICARE, SELFPAY ==
[2018-01-27] VITALS (25 sets, daily range): BP systolic 91–120; BP diastolic 54–73; PULSE 77–98; RESP 12–29; TEMP 37.4–39.2; O2SAT 80–96; BMI 25.8; BMI 24.7
[2018-01-27 14:05] LABS: Bedside Glucose 112 mg/dL (70-110)
[2018-01-27] MEDS: 0.9% Normal Saline 1,000 ML 250 ML IV ×2 (14:15→18:45)
[2018-01-27 14:41] LABS: Absolute Lymphocyte Count 0.35 X10^3/ul (0.83-4.51); Absolute Neutrophil Count 8.3 X10^3/uL (2.0-7.7); Basophil# 0.01 X10^3/uL; Basophil% 0.1 % (0-1); Eosinophil# 0.02 X10^3/uL; Eosinophils% 0.2 % (0-5); Hemoglobin 10.1 g/dl (12.0-15.0); Lymphocyte # 0.35 X10^3/ul (4.0); Lymphocyte % 3.8 % (19-41); Mean Corp Hgb Conc 36.1 g/gl (32-36); Mean Corpuscular Hgb 28.1 pg (27.0-32.0); Mean Corpuscular Volume 77.8 fL (81-99); Mean Platelet Vol. 12.3 fl (6.2-12.0); Monocyte# 0.49 X10^3/uL; Monocyte% 5.3 % (0-10); Neutrophil # 8.27 X10^3/uL (2.7-7.7); Platelet Count 163 K/mm3 (150-450); RBC Distribution Width CV 13.9 % (11.6-14.6); RBC Distribution Width SD 37.9 fl (35.1-43.9); White Blood Count 9.3 K/mm3 (4.4-11.0)
[2018-01-27] MEDS: Albuterol 2.5 MG/3 ML VIAL.NEB. INHALATION (14:45)
[2018-01-27] MEDS: Ipratropium/Albuterol Sulfate 3 ML AMPUL.NEB INHALATION ×2 (14:45→20:21)
[2018-01-27] MEDS: Acetaminophen 500 MG Tablet 1000 MG PO ×2 (14:47→17:44)
[2018-01-27 14:52] LABS: International Normalized Ratio 1.1; Prothrombin Time (Protime)PT. 14.6 SECONDS (11.7-14.9)
[2018-01-27 14:53] LABS: Partial Thromboplast Time 37.8 Seconds (24.1-36.2)
[2018-01-27 14:55] LABS: Differential Indicated SCAN CRITERIA MET; POSITIVE COUNT NO; POSITIVE DIFFERENTIAL YES; POSITIVE MORPHOLOGY NO
[2018-01-27 15:05] LABS: Hypochromasia 1+; Microcytosis 1+; Platelet Estimate ADEQUATE (ADEQ); Platelet Morphology LARGE
[2018-01-27 15:11] LABS: Bedside Glucose 130 mg/dL (70-110)
[2018-01-27 15:17] LABS: ALB/GLOB Ratio 0.4 RATIO (0.9-2.4); AST(SGOT) 43 U/L (15-37); Alanine Aminotransfer ALT/SGPT 14 U/L (13-56); Albumin, Serum 2.4 g/dL (3.2-5.0); Alkaline Phosphatase 61 U/L (45-117); Anion Gap 11 (5-15); BUN 40 mg/dL (7-18); BUN/Creat Ratio 10.1 RATIO (10-20); Calcium,Total 9.5 mg/dL (8.5-10.1); Chloride 101 mmol/L (98-107); Creatinine, Serum 3.96 mg/dL (0.55-1.02); EST Glomerular Filtration Rate 13 mL/min (>60); Est Glom Filt Rate - Afr Amer 16 mL/min (>60); Estimated Creatinine Clearance 17.86 ml/min; Globulin 5.5 g/dL (2.2-4.2); Glucose 112 mg/dL (74-106); Potassium 5.7 mmol/L (3.5-5.1); Protein, Total 7.9 g/dL (6.4-8.2); Sodium Level 132 mmol/L (136-145)
[2018-01-27 15:44] LABS: Mucous, Urine 0 SEEN /hpf (<or=2+)
[2018-01-27 15:45] LABS: Lactic Acid 2.8 mmol/L (0.4-2.0)
[2018-01-27] MEDS: Vancomycin IV 1,000 MG/200 ML BAG 200 MG IV (15:49)
[2018-01-27] MEDS: Piperacil/Tazobactam 3.375 GM/50 ML ML IV ×2 (15:49→21:46)
[2018-01-27] MEDS: 0.9% Normal Saline 1,000 ML 999 ML IV (16:07)
[2018-01-27 16:19] LABS: Color, Urine Yellow (Yellow); Glucose, Dipstick Normal (Normal); Ketone-Dipstick Negative (Negative); Leukocyte Esterase-Dipstick 25 /ul (Negative); Nitrite-Dipstick Negative (Negative); Occult Blood-Urine 25 /ul (Negative); Protein-Dipstick 500 mg/dl (Negative); Urine Clarity Sl. Cloudy (Clear); Urine Urobilinogen 4 mg/dl (Normal)
[2018-01-27] MEDS: Morphine 4 MG/ML Syringe IV (16:19)
[2018-01-27 16:28] LABS: Urine Bilirubin Dipstick 1 mg/dL (Negative)
[2018-01-27 16:30] LABS: Bacteria 3+ /hpf (None Seen); Red Blood Cells-Urine 0-5 SEEN /hpf (0-5); Squamous Epithelial Cells - UA 10-25 SEEN /hpf (5-10); White Blood Cells 0-5 SEEN /hpf (0-5)
[2018-01-27 16:36] LABS: Bedside Glucose 176 mg/dL (70-110)
--- NOTE | 2018-01-27 16:42 | ED.VISSUMM ---
- ER Visit Summary Date of Service: 01/27/18 Chief Complaint: Fever and hypoxia History of Present Illness: The patient is a 37 F who approximately 3 years ago received a renal transplant at [facility] in [place]. In the past month she has moved to [place]. 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 She was recently admitted for [facility]. Patient at that time had a creatinine level of 1.9. She believes her creatinine in [place] was either 1.3 of 1.7. Patient today woke and noticed that she had been coughing. She notes chills. She felt weak. Her called EMS. The patient's blood sugar was noted to be low and EMS gave glucose. Initial pulse ox is 80% on room air. She notes pain in the right CVA region. She denies any pain over her renal transplant site which she points to the right lower quadrant as the implantation area. Physical Examination: 102.6 heart rate is 92 respirations is 26 pulse ox is 80% on room air 91% on 6 L blood pressure 117/64 Gen: Well-nourished well-developed Head: Normocephalic atraumatic Eyes: Perrl EOMI ENT: TMs clear no rhinorrhea moist mucous membranes Neck: Supple no lymphadenopathy no JVD nontender CVS: Regular rate tachycardia rhythm no murmurs normal S1-S2 Respiratory: No distress rhonchorous lung sounds chest nontender Abdomen: Soft nontender nondistended normal bowel sounds no masses no tenderness over the graft site Back: CVA tenderness to palpation Extremity: Nontender no edema Skin: Normal color no rash Neuro: alert orientated ?3 CN II-XII intact normal strength sensation reflexes gait cerebellar Psych: Normal affect normal mood Test Results: EKG sinus with a rate of 92. Chest x-ray shows bilateral infiltrates. White count 9.3. Platelets of 163. Hemoglobin 10.1. Creatinine significantly elevated now at 3.96 and a BUN of 40. CO2 of 20. Potassium 5.7. Anion gap 11. Lactic acid elevated 2.8 ketones are negative. Troponin 0 0.035. Urinalysis which was a straight cath showed 10-25 epithelial cells and 3+ bacteria but leukocyte esterase positive nitrite negative. No significant white or red blood cells. Emergency Department Course and Treatment: She has received IV fluids as well as Tylenol. Blood and urine cultures obtained. She received azithromycin vancomycin and Zosyn. I spoke with Dr. Calles for intensive care as well as Dr. Dowell for nephrology. Plan will be admission into the hospital. Dr. Jackson has accepted to the ICU. The patient her and her mother have been kept informed. Impression: 1. Bilateral pneumonia 2. Acute kidney injury 3. Sepsis 4. Hypoglycemia resolved 5. Hypoxemia 6. Immunocompromised 7. Critical care time 35 minutes This note was generated with IMN dictation software. It may contain incorrect words, spelling, and punctuation that were not noted in review of the chart prior to signing ED Disposition - Plan for ED Patient: Chief Complaint: Fever Referrals: Aster Martin MD [Primary Care Provider] -
--- NOTE | 2018-01-27 16:46 | ED.DCSUM_ITS ---
- ER Visit Summary Date of Service: 01/27/18 Chief Complaint: Fever and hypoxia History of Present Illness: The patient is a 37 F who approximately 3 years ago received a renal transplant at [facility] in [place]. In the past month she has moved to [place]. 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 She was recently admitted for [facility]. Patient at that time had a creatinine level of 1.9. She believes her creatinine in [place] was either 1.3 of 1.7. Patient today woke and noticed that she had been coughing. She notes chills. She felt weak. Her called EMS. The patient's blood sugar was noted to be low and EMS gave glucose. Initial pulse ox is 80% on room air. She notes pain in the right CVA region. She denies any pain over her renal transplant site which she points to the right lower quadrant as the implantation area. Physical Examination: 102.6 heart rate is 92 respirations is 26 pulse ox is 80% on room air 91% on 6 L blood pressure 117/64 Gen: Well-nourished well-developed Head: Normocephalic atraumatic Eyes: Perrl EOMI ENT: TMs clear no rhinorrhea moist mucous membranes Neck: Supple no lymphadenopathy no JVD nontender CVS: Regular rate tachycardia rhythm no murmurs normal S1-S2 Respiratory: No distress rhonchorous lung sounds chest nontender Abdomen: Soft nontender nondistended normal bowel sounds no masses no tenderness over the graft site Back: CVA tenderness to palpation Extremity: Nontender no edema Skin: Normal color no rash Neuro: alert orientated ?3 CN II-XII intact normal strength sensation reflexes gait cerebellar Psych: Normal affect normal mood Test Results: EKG sinus with a rate of 92. Chest x-ray shows bilateral infiltrates. White count 9.3. Platelets of 163. Hemoglobin 10.1. Creatinine significantly elevated now at 3.96 and a BUN of 40. CO2 of 20. Potassium 5.7. Anion gap 11. Lactic acid elevated 2.8 ketones are negative. Troponin 0 0.035. Urinalysis which was a straight cath showed 10-25 epithelial cells and 3 + bacteria but leukocyte esterase positive nitrite negative. No significant white or red blood cells. Emergency Department Course and Treatment: She has received IV fluids as well as Tylenol. Blood and urine cultures obtained. She received azithromycin vancomycin and Zosyn. I spoke with Dr. Calles for intensive care as well as Dr. Dowell for nephrology. Plan will be admission into the hospital. Dr. Jackson has accepted to the ICU. The patient her and her mother have been kept informed. Impression: 1. Bilateral pneumonia 2. Acute kidney injury 3. Sepsis 4. Hypoglycemia resolved 5. Hypoxemia 6. Immunocompromised 7. Critical care time 35 minutes This note was generated with Piazza dictation software. It may contain incorrect words, spelling, and punctuation that were not noted in review of the chart prior to signing ED Disposition - Plan for ED Patient: Chief Complaint: Fever Referrals: Aster Martin MD [Primary Care Provider] -
--- NOTE | 2018-01-27 17:06 | PCM.HP.STD ---
Problem List (1) Severe sepsis Status: Acute (2) HCAP (healthcare-associated pneumonia) Status: Acute (3) Hyperglycemia without ketosis Status: Chronic (4) CKD stage 3 due to type 1 diabetes mellitus Status: Chronic (5) DM type 1 (diabetes mellitus, type 1) Status: Chronic Qualifiers: Diabetes mellitus complication status: with neurologic complications Diabetes mellitus complication detail: with unspecified neuropathy Qualified Code(s): E10.40 - Type 1 diabetes mellitus with diabetic neuropathy, unspecified (6) Hyperglycemia due to type 1 diabetes mellitus Status: Chronic History of Present Illness Date of Admission: 01/27/18 Chief Complaint: Shortness of breath The patient is a 37 year old F with past medical history significant for diabetes mellitus type 1, CKD, history of kidney transplant with subsequent rejection discharge from the hospital 5 days prior to her readmission. Patient was on admission for hyperosmolar nonketotic state. Patient reports worsening condition since being discharged. She is developed intermittent fever and chills as well as shortness of breath. She also did complain of back pain. She presented back to the emergency department where the studies obtained on admission demonstrated bilateral infiltrate consistent with pneumonia. Patient was also found to have elevated lactic acid level. Treatment for severe sepsis was initiated and patient admitted to the intensive care unit for subsequent management. 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) Allergies furosemide [From Lasix] Allergy (Verified 01/20/18 14:16) Hives Home Medications: Ambulatory Orders Medication Instructions Recorded Albuterol Sulfate [Proair Hfa] 2 puff INHALATION Q6H PRN PRN 01/20/18 Carvedilol [Coreg] 25 mg PO BID 01/20/18 Diphenhydramine HCl [Benadryl 25 mg PO QODAY 01/20/18 Allergy] Famotidine [Pepcid] 20 mg PO BID 01/20/18 Fluticasone 0.05% [Flonase Nasal 2 spray NASAL TID PRN PRN 01/20/18 [place]] Gabapentin [Neurontin] 300 mg PO Q12H 01/20/18 Mycophenolate Mofetil 500 mg PO BID 01/20/18 Nifedipine [Nifedipine ER] 60 mg PO BID 01/20/18 Ondansetron HCl [Zofran] 4 mg PO Q8H PRN PRN 01/20/18 Oxycodone HCl [Roxicodone] 5 mg PO BID 01/20/18 Pravastatin [Pravachol] 40 mg PO QHS 01/20/18 Prednisone 5 mg PO DAILY 01/20/18 Tacrolimus Anhydrous [Prograf] 1 mg PO BID 01/20/18 Zolpidem Tartrate [Ambien] 10 mg PO QHS 01/20/18 Acetaminophen [Tylenol Tablet] 650 mg PO Q6H PRN PRN tablet 01/22/18 Cyclobenzaprine [Flexeril] 10 mg PO TID PRN #10 tab 01/22/18 Insulin Detemir [Levemir] 32 unit SQ DAILY #1 vial 01/22/18 Insulin Aspart [Novolog Flexpen] 6 units SC TIDCM 01/27/18 Surgical History: appendectomy, - - Status post kidney transplant, poor wound debridement, diverting sigmoid colostomy on 07/06/2017, reversed on 07/07/2017, percutaneous tracheostomy, no longer has, left TMA Psychiatric History: No pertinent psych hx DIRECTOR PROCESS ENGINEERING History: No pertinent DIRECTOR PROCESS ENGINEERING history Smoking Status: Former smoker - *Family History Maternal History Items: Diabetes, Hypertension Paternal History Items: No pertinent history Review of Systems Constitutional: Reports: Anorexia, Fever, Night Sweats, Malaise, Weakness, Fatigue HEENT: Denies: Head Aches, Sinus Congestion, Sinus Drainage Cardiovascular: Denies: Chest Pain Respiratory: Reports: Cough, Shortness of Breath Gastrointestinal: Denies: Abdominal Pain, Hematemesis, Hematochezia, Nausea, Melena, Vomiting Genitourinary: Denies: Dysuria, Frequency, Hematuria, Urgency Musculoskeletal: Denies: Joint Pain, Joint Tenderness Skin: Denies: Rash Neurological: Denies: Focal weakness, Numbness, Tingling Psychiatric: Denies: Homicidal Ideations, Suicidal Ideations Hematologic/ Lymphatic: Denies: Easy Bruising, Easy Bleeding VTE Information - Inpt Only VTE Present on Admission: No VTE Mechan Device Prophylaxis: Knee High RAND Hose VTE Pharm Prophylaxis ordered?: Yes Patient Problems: Active and Suspected Problems Severe sepsis (Acute) HCAP (healthcare-associated pneumonia) (Acute) Objective: GENERAL: Patient appears ill looking. HEENT: Clear conjunctiva, NECK; supple, normal thyroid, CHEST: Diminished to auscultation bilaterally, HEART: Regular S1 S2, tachycardic ABDOMEN: soft, non-tender, normoactive bowel sounds, RECTAL: deferred EXTREMITIES: No edema, no clubbing, no cyanosis. CONSTRUCTION EQUIPMENT MECHANIC: Awake; no lateralizing signs. SKIN: No Rash - Physical Exam Vital Signs Temp Pulse Resp BP Pulse Ox 100.2 F H 96 29 H 106/58 L 94 01/27/18 15:50 01/27/18 16:09 01/27/18 16:09 01/27/18 16:09 01/27/18 16:09 Oxygen Flow Rate (L/min) 6 Oxygen Delivery Method Nasal Cannula Weight: 72.575 kg Body Mass Index (BMI) 25.8 Finger Stick Blood Glucose 176 Laboratory Tests Past 24 Hrs 01/27/18 01/27/18 01/27/18 14:15 14:15 14:15 WBC 9.3 RBC 3.60 L Hgb 10.1 L Hct 28.0 L MCV 77.8 L MCH 28.1 MCHC 36.1 H RDW 13.9 RDW Differential 37.9 Plt Count 163 MPV 12.3 H Immature Gran % (Auto) 1.600 H Neut % (Auto) 89.0 H Lymph % (Auto) 3.8 L [place] % (Auto) 5.3 Eos % (Auto) 0.2 Baso % (Auto) 0.1 Absolute Neuts (auto) 8.3 H Absolute Lymphs (auto) 0.35 L Total Counted Not Reportable Platelet Estimate ADEQUATE Plt Morphology Comment LARGE Hypochromasia 1+ Microcytosis 1+ PT 14.6 INR 1.1 APTT 37.8 H Sodium 132 L Potassium 5.7 H Chloride 101 Carbon Dioxide 20.0 L Anion Gap 11 BUN 40 H Creatinine 3.96 H Estim Creat Clear Calc 17.86 Est GFR (MDRD) Af Amer 16 L Est GFR (MDRD) Non-Af 13 L BUN/Creatinine Ratio 10.1 Glucose 112 H Lactic Acid Calcium 9.5 Total Bilirubin 1.00 AST 43 H ALT 14 Alkaline Phosphatase 61 Troponin I 0.035 Total Protein 7.9 Albumin 2.4 L Globulin 5.5 H Albumin/Globulin Ratio 0.4 L Urine Color Urine Clarity Urine pH Ur Specific [place] Urine Protein Urine Glucose (UA) Urine Ketones Urine Occult Blood Urine Nitrite Urine Bilirubin Urine Urobilinogen Ur Leukocyte Esterase Urine RBC Urine WBC Ur Squamous Epith Cells Urine Bacteria Urine Mucus Acetone Level 01/27/18 01/27/18 01/27/18 14:15 14:15 15:35 WBC RBC Hgb Hct MCV MCH MCHC RDW RDW Differential Plt Count MPV Immature Gran % (Auto) Neut % (Auto) Lymph % (Auto) [place] % (Auto) Eos % (Auto) Baso % (Auto) Absolute Neuts (auto) Absolute Lymphs (auto) Total Counted Platelet Estimate Plt Morphology Comment Hypochromasia Microcytosis PT INR APTT Sodium Potassium Chloride Carbon Dioxide Anion Gap BUN Creatinine Estim Creat Clear Calc Est GFR (MDRD) Af Amer Est GFR (MDRD) Non-Af BUN/Creatinine Ratio Glucose Lactic Acid 2.8 H Calcium Total Bilirubin AST ALT Alkaline Phosphatase Troponin I Total Protein Albumin Globulin Albumin/Globulin Ratio Urine Color Yellow Urine Clarity Sl. Cloudy Urine pH 8.0 Ur Specific [place] 1.010 Urine Protein 500 H Urine Glucose (UA) Normal Urine Ketones Negative Urine Occult Blood 25 H Urine Nitrite Negative Urine Bilirubin 1 H Urine Urobilinogen 4 H Ur Leukocyte Esterase 25 H Urine RBC 0-5 SEEN Urine WBC 0-5 SEEN Ur Squamous Epith Cells 10-25 SEEN Urine Bacteria 3+ Urine Mucus 0 SEEN Acetone Level NEGATIVE POC Glucose 01/27/18 01/27/18 01/27/18 16:27 15:07 13:49 POC Glucose 176 H 130 H 112 H Assessment/Plan All Active Problems Severe sepsis (Acute) HCAP (healthcare-associated pneumonia) (Acute) Patient is a 37-year-old lady with history of diabetes mellitus type 1, history of kidney transplant with subsequent rejection presented with progressive shortness of breath imaging studies demonstrated features consistent with pneumonia admitted to the intensive care unit for subsequent management 1. Severe sepsis secondary to healthcare acquired pneumonia: Patient has been admitted to intensive care unit managed per protocol with receive IV fluids, broad-spectrum antibiotic therapy Zosyn, ciprofloxacin as well as vancomycin. Cultures were obtained prior to initiation of antibiotic therapy. Consultation was placed to Dr. Calles which intensive care notified by the ED 2. Healthcare acquired pneumonia with suspected gram-negative organisms management as discussed above 3. Diabetes mellitus type 1 since age 10 did continue with patient home regimen 4. Diabetic nephropathy with previous kidney transplant patient apparently had rejection and was treated with immunotherapy auscultation was placed to Dr. edwards he was notified by the ED prior to patient's admission 5. Acute on chronic kidney disease on IV fluids with monitoring of electrolyte 6. Diabetic retinopathy 7. Chronic kidney disease stage III with previous kidney transplant. Patient currently on Prograf as well as CellCept 8. Hypertension did continue with home meds 9. DVT prophylaxis SC heparin Code Visit Inpatient E&M: 90054 Init Hosp L3
[2018-01-27 18:28] LABS: Reflex Lactate? Y
[2018-01-27] MEDS: oxyCODONE 5 MG Tablet PO ×2 (18:48→21:18)
--- NOTE | 2018-01-27 19:27 | PCM.RX.CS ---
Consult Pharmacy has been consulted to manage selected antiobiotic: Vancomycin Type of Consult: New start Suspected Infection: Sepsis, Pneumonia Labs: Sodium 132 mmol/L (136-145) L 01/27/18 14:15 Potassium 5.7 mmol/L (3.5-5.1) H 01/27/18 14:15 Chloride 101 mmol/L (98-107) 01/27/18 14:15 Carbon Dioxide 20.0 mmol/L (21.0-32.0) L 01/27/18 14:15 Anion Gap 11 (5-15) 01/27/18 14:15 BUN 40 mg/dL (7-18) H 01/27/18 14:15 Creatinine 3.96 mg/dL (0.55-1.02) H 01/27/18 14:15 Est GFR (MDRD) Af Amer 16 mL/min (>60) L 01/27/18 14:15 Est GFR (MDRD) Non-Af 13 mL/min (>60) L 01/27/18 14:15 BUN/Creatinine Ratio 10.1 RATIO (10-20) 01/27/18 14:15 Glucose 112 mg/dL (74-106) H 01/27/18 14:15 Weight used for dosin lb 13.362 oz Estimated Creatinine Clearance: 17.86 Goal Trough: 15-20 mcg/mL Pharmacy Plan for Drug Dosing: Pharmacy Service will continue to monitor and adjust dosing as required. Goal trough is 15-20 Due to renal function patient will be dosed based on random levels Next random level due 01/29 at 0600
[2018-01-27 20:05] LABS: Anion Gap 13 (5-15); BUN 39 mg/dL (7-18); BUN/Creat Ratio 10.5 RATIO (10-20); Calcium,Total 8.1 mg/dL (8.5-10.1); Chloride 105 mmol/L (98-107); EST Glomerular Filtration Rate 15 mL/min (>60); Est Glom Filt Rate - Afr Amer 18 mL/min (>60); Estimated Creatinine Clearance 19.11 ml/min; Glucose 186 mg/dL (74-106); Potassium 3.9 mmol/L (3.5-5.1); Sodium Level 136 mmol/L (136-145)
[2018-01-27 20:08] LABS: M R Staph aureus DNA By PCR Negative (Negative); Probe Check PASS; Specimen Processing Control PASS
[2018-01-27] MEDS: Heparin Injection (Vial) 5,000 UNIT/ML VIAL 5000 UNIT SC (21:16)
[2018-01-27] MEDS: Gabapentin 300 MG Capsule PO (21:17)
[2018-01-27] MEDS: guaiFENesin 1,200 MG Tablet 1200 MG PO (21:18)
[2018-01-27] MEDS: Pravastatin 40 MG Tablet PO (21:19)
[2018-01-27] MEDS: Tacrolimus Anhydrous 1 MG Capsule PO (21:19)
[2018-01-27] MEDS: Famotidine 20 MG Tablet PO (21:20)
[2018-01-27 21:36] LABS: Bedside Glucose 170 mg/dL (70-110)
[2018-01-27] MEDS: Insulin Lispro 100 UNIT/ML INSULN.PEN SQ (21:45)
[2018-01-27 23:21] LABS: Base Excess -8 mmol/L (-2 to +2); Bicarbonate 17.6 mmol/L (22-26); Blood Gas Specimen Type ART; O2 Delivery Device Nasal Can; PO2 51 mmHG (75-100); SITE L Radial; SO2 85 % (95-99); Time Given 2310; Total Carbon Dioxide 19 mmol/L; pCO2 30.5 mmHg (35-45); pH 7.37 (7.35-7.45)
[2018-01-28] VITALS (35 sets, daily range): BP systolic 100–136; BP diastolic 54–107; PULSE 26–101; RESP 12–30; TEMP 37–39.4; O2SAT 90–99
[2018-01-28] MEDS: Ipratropium/Albuterol Sulfate 3 ML AMPUL.NEB INHALATION ×4 (01:20→19:02)
[2018-01-28] MEDS: 0.9% Normal Saline 1,000 ML 250 ML IV ×2 (01:59→06:25)
[2018-01-28 04:31] LABS: Bedside Glucose 215 mg/dL (70-110)
[2018-01-28] MEDS: Insulin Lispro 100 UNIT/ML INSULN.PEN SQ (04:33)
[2018-01-28 04:36] LABS: Hematocrit 23.3 % (37-47); Hemoglobin 8.1 g/dl (12.0-15.0); Mean Corp Hgb Conc 34.8 g/gl (32-36); Mean Corpuscular Hgb 27.6 pg (27.0-32.0); Mean Corpuscular Volume 79.3 fL (81-99); Mean Platelet Vol. 11.6 fl (6.2-12.0); Platelet Count 153 K/mm3 (150-450); RBC Distribution Width CV 14.8 % (11.6-14.6); Red Blood Count 2.94 M/mm3 (4.2-5.4); White Blood Count 9.1 K/mm3 (4.4-11.0)
[2018-01-28 04:37] LABS: Scan Indicated on CBC? Y/N NO
[2018-01-28] MEDS: Acetaminophen 325 MG Tablet 650 MG PO (04:41)
[2018-01-28 04:48] LABS: Anion Gap 14 (5-15); BUN 38 mg/dL (7-18); BUN/Creat Ratio 10.8 RATIO (10-20); Calcium,Total 7.5 mg/dL (8.5-10.1); Chloride 108 mmol/L (98-107); Creatinine, Serum 3.52 mg/dL (0.55-1.02); EST Glomerular Filtration Rate 15 mL/min (>60); Est Glom Filt Rate - Afr Amer 19 mL/min (>60); Estimated Creatinine Clearance 20.09 ml/min; Glucose 207 mg/dL (74-106); Potassium 4.9 mmol/L (3.5-5.1); Sodium Level 138 mmol/L (136-145)
[2018-01-28] MEDS: Piperacil/Tazobactam 3.375 GM/50 ML ML IV (06:25)
[2018-01-28] MEDS: 0.9% Normal Saline 1,000 ML 75 ML IV ×2 (06:56→21:30)
--- NOTE | 2018-01-28 07:47 | PCM.CON.CC ---
Problem List (1) Legionella pneumonia Status: Acute (2) Hyperglycemia due to type 1 diabetes mellitus Status: Chronic (3) Hyperglycemia without ketosis Status: Chronic (4) DM type 1 (diabetes mellitus, type 1) Status: Chronic Qualifiers: Diabetes mellitus complication status: with neurologic complications Diabetes mellitus complication detail: with unspecified neuropathy Qualified Code(s): E10.40 - Type 1 diabetes mellitus with diabetic neuropathy, unspecified (5) CKD stage 3 due to type 1 diabetes mellitus Status: Chronic (6) Severe sepsis Status: Acute (7) Acute respiratory failure with hypoxia Status: Acute Reason for Consult Date of Consultation: 01/28/18 Reason for Consultation: Respiratory failure History of Present Illness: The patient is a 37 year old F, with past medical history listed below, who presented to [facility] on 01/27/2018 who presented with a one-day history of coughing, chills and weakness. EMS was reportedly called to her residence and found patient to be hypoglycemic. Patient was given glucose without improvement. Initial pulse ox was noted to be 80% on room air. Patient had significant pain in the right CVA region. On presentation to the ER, patient was noted to be febrile at 102.6?F, tachypneic with an adequate blood pressure. Patient did receive IV fluids and Tylenol. Patient was admitted to the intensive care unit on BiPAP therapy. Since arrival, patient has been relatively dependent on BiPAP therapy secondary to hypoxemia. Patient continues to have right-sided flank pain. Legionella antigen has come back positive. Patient's blood pressure has remained adequate at this time. Morning labs show slight improvement in creatinine. Patient is not able to provide much more additional information at this time. Patient reportedly had a renal transplant at [facility] [place] in [place] approximately 3 years ago. Patient recently moved to this area, but has not been established with a saw man. Patient was recently admitted for [facility] and at that time had a creatinine of 1.9. Patient believes her previous creatinine was 1.3 or 1.7. Patient reports she has been compliant with immunosuppressive therapy. 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) Allergies furosemide [From Lasix] Allergy (Verified 01/20/18 14:16) Hives Home Medications: Ambulatory Orders Medication Instructions Recorded Carvedilol [Coreg] 25 mg PO BID 01/20/18 Diphenhydramine HCl [Benadryl 25 mg PO QODAY 01/20/18 Allergy] Famotidine [Pepcid] 20 mg PO BID 01/20/18 Fluticasone 0.05% [Flonase Nasal 2 spray NASAL TID PRN PRN 01/20/18 [place]] Gabapentin [Neurontin] 300 mg PO Q12H 01/20/18 Mycophenolate Mofetil 500 mg PO BID 01/20/18 Nifedipine [Nifedipine ER] 60 mg PO BID 01/20/18 Oxycodone HCl [Roxicodone] 5 mg PO BID 01/20/18 Pravastatin [Pravachol] 40 mg PO QHS 01/20/18 Prednisone 5 mg PO DAILY 01/20/18 Tacrolimus Anhydrous [Prograf] 1 mg PO BID 01/20/18 Zolpidem Tartrate [Ambien] 10 mg PO QHS 01/20/18 Cyclobenzaprine [Flexeril] 10 mg PO TID PRN #10 tab 01/22/18 Insulin Detemir [Levemir] 32 unit SQ DAILY #1 vial 01/22/18 Insulin Aspart [Novolog Flexpen] 6 units SC TIDCM 01/27/18 Surgical History: appendectomy, - - Status post kidney transplant, poor wound debridement, diverting sigmoid colostomy on 07/06/2017, reversed on 07/07/2017, percutaneous tracheostomy, no longer has, left TMA Psychiatric History: No pertinent psych hx 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 Patient did have a CT of the abdomen on 01/21/2018 showing an 8 cm x 5.9 cm x 4.8 cm stomach cyst structure in the right lower abdomen and atrophy of the [place] kidneys. - Physical Exam General: - - RASS -1. Follows commands, but falls asleep relatively quickly. Appears stated age. HEENT: Atraumatic, PERRLA, EOMI, Normocephalic, - - No scleral icterus or injection noted. Oral: No Gingival or Mucosal Lesions/ Ulcerations, Dry Mucosa Neck: Supple, No JVD, No Nodes, Trachea Midline Lungs: No wheeze, No rales, Diminished, Rhonchi, - - Symmetric expansion. No dullness to percussion. Cardiovascular: Regular rate, Regular Rhythm, Normal S1, Normal S2, No murmurs, No rub noted, No Gallop Abdomen: Soft, Hypoactive Bowel Sounds - Right sided, Distended, Guarding, Tender - Right flank Extremities: No clubbing, No cyanosis, No edema, Capillary Refill Less than 3 Seconds Skin: No rashes, No breakdown Musculoskeletal: No Tenderness to Palpation of Joints or Extremities Lymphatic: No Cervical, Supraclavicular, or Inguinal Adenopathy Neurological: Cranial nerves II-XII grossly intact, Neuro grossly intact, Motor Exam 5/5 strength throughout Psych/Mental Status: Anxious, Impulsive, Restless Vital Signs Temp Pulse Resp BP Pulse Ox 38.2 C H 85 23 H 109/54 L 99 01/28/18 05:00 01/28/18 07:00 01/28/18 07:00 01/28/18 07:00 01/28/18 07:00 Oxygen Flow Rate (L/min) 8 Oxygen Delivery Method Bi-pap Weight: 71.9 kg Body Mass Index (BMI) 24.7 Intake and Output for Last 24 Hours 01/26/18 01/27/18 01/28/18 23:59 23:59 23:59 Intake Total 3240 / 3240 Output Total 650 / 650 Balance 2590 / 2590 Laboratory Tests Past 24 Hrs 01/27/18 01/27/18 01/27/18 18:00 19:35 19:35 WBC RBC Hgb Hct MCV MCH MCHC RDW RDW Differential Plt Count MPV Specimen Type Sample Site pH Bicarbonate Actual POC Total CO2 Base Excess O2 Saturation ABG pCO2 ABG pO2 O2 Delivery Device Liter Flow Blood Gas Notified Whom Blood Gas Notified Time Sodium 136 Potassium 3.9 Chloride 105 Carbon Dioxide 18.0 L Anion Gap 13 BUN 39 H Creatinine 3.70 H Estim Creat Clear Calc 19.11 Est GFR (MDRD) Af Amer 18 L Est GFR (MDRD) Non-Af 15 L BUN/Creatinine Ratio 10.5 Glucose 186 H Lactic Acid 1.0 Calcium 8.1 L Tacrolimus MRSA (PCR) Negative 01/27/18 01/27/18 01/28/18 21:35 23:16 04:20 WBC 9.1 RBC 2.94 L Hgb 8.1 L Hct 23.3 L MCV 79.3 L MCH 27.6 MCHC 34.8 RDW 14.8 H RDW Differential 43.0 Plt Count 153 MPV 11.6 Specimen Type ART Sample Site L Radial pH 7.37 Bicarbonate Actual 17.6 L POC Total CO2 19 Base Excess -8 L O2 Saturation 85 L ABG pCO2 30.5 L ABG pO2 51 L O2 Delivery Device Nasal Can Liter Flow 8.0 Blood Gas Notified Whom ICU Blood Gas Notified Time 2310 Sodium Potassium Chloride Carbon Dioxide Anion Gap BUN Creatinine Estim Creat Clear Calc Est GFR (MDRD) Af Amer Est GFR (MDRD) Non-Af BUN/Creatinine Ratio Glucose Lactic Acid Calcium Tacrolimus Pending MRSA (PCR) 01/28/18 04:20 WBC RBC Hgb Hct MCV MCH MCHC RDW RDW Differential Plt Count MPV Specimen Type Sample Site pH Bicarbonate Actual POC Total CO2 Base Excess O2 Saturation ABG pCO2 ABG pO2 O2 Delivery Device Liter Flow Blood Gas Notified Whom Blood Gas Notified Time Sodium 138 Potassium 4.9 Chloride 108 H Carbon Dioxide 16.0 L Anion Gap 14 BUN 38 H Creatinine 3.52 H Estim Creat Clear Calc 20.09 Est GFR (MDRD) Af Amer 19 L Est GFR (MDRD) Non-Af 15 L BUN/Creatinine Ratio 10.8 Glucose 207 H Lactic Acid Calcium 7.5 L Tacrolimus MRSA (PCR) POC Glucose 01/28/18 01/27/18 04:27 21:29 POC Glucose 215 H 170 H Clinical Impression(s) from Imaging Studies Chest X-Ray 01/27/18 14:13 IMPRESSION: Bilateral pulmonary infiltrates. Electronically Signed: Roger Griffith MD at 15:08 EDT Tel [phone], Service support , Assessment/Plan Active and Suspected Problems Severe sepsis (Acute) HCAP (healthcare-associated pneumonia) (Acute) Legionella pneumonia (Acute) Acute respiratory failure with hypoxia (Acute) RECOMMENDATIONS: 1. Consult ID 2. Continue BiPAP therapy, monitor for signs of respiratory muscle fatigue 3. Continue fluid resuscitation 4. Await nephrology recommendations 5. Attempt to obtain old records from [facility] IMPRESSIONS: 1. Acute hypoxic respiratory failure secondary to Legionella pneumonia Patient currently on BiPAP therapy and tolerating well. Cannot exclude patient decompensating over the next 24-48 hours and requiring intubation. Patient does not have a history of obstructive lung disease. Infectious disease will be consulted. Patient is receiving some immunosuppression at this time. Patient may require transition to fluoroquinolone therapy such as Levaquin. Likely okay to discontinue vancomycin. 2. Immunosuppression status post kidney transplant secondary to type 1 diabetes Patient currently receiving some of her immunosuppression. Will defer to nephrology and infectious disease on appropriateness of each immunosuppressive medication. 3. Acute on chronic kidney disease stage III Patient appears to be responding to fluid resuscitation at this time. Patient does have significant hypoxia that may lead to ATN. Continue to monitor renal function on a daily basis. Patient does not have any indication for acute renal replacement therapy at this time. 4. Diabetes mellitus type 1 with retinopathy, chronic kidney disease Patient will likely be n.p.o. secondary to BiPAP requirements. May need to decrease Lantus therapy. Continue to monitor blood sugars every 6 hours. If persistently hypoglycemic, dextrose can be added to IV fluids. 5. Hypertension/lack of baseline medical records/abdominal cyst Complicates care, management, recovery and prognosis. Will attempt to obtain old records to see if cyst has been noted previously. TIME: 45 minutes critical care time spent addressing patient's acute hypoxic respiratory failure, acute kidney injury, diabetes mellitus, review of all data and collaboration with care team. (7 AM to 8 AM) Code Visit 9xxxx: [id number] Critical care first hour
--- NOTE | 2018-01-28 07:51 | CON.PCM_ITS ---
Problem List (1) Legionella pneumonia Status: Acute (2) Hyperglycemia due to type 1 diabetes mellitus Status: Chronic (3) Hyperglycemia without ketosis Status: Chronic (4) DM type 1 (diabetes mellitus, type 1) Status: Chronic Qualifiers: Diabetes mellitus complication status: with neurologic complications Diabetes mellitus complication detail: with unspecified neuropathy Qualified Code(s): E10.40 - Type 1 diabetes mellitus with diabetic neuropathy, unspecified (5) CKD stage 3 due to type 1 diabetes mellitus Status: Chronic (6) Severe sepsis Status: Acute (7) Acute respiratory failure with hypoxia Status: Acute Reason for Consult Date of Consultation: 01/28/18 Reason for Consultation: Respiratory failure History of Present Illness: The patient is a 37 year old F, with past medical history listed below, who presented to [facility] on 01/27/2018 who presented with a one-day history of coughing, chills and weakness. EMS was reportedly called to her residence and found patient to be hypoglycemic. Patient was given glucose without improvement. Initial pulse ox was noted to be 80% on room air. Patient had significant pain in the right CVA region. On presentation to the ER , patient was noted to be febrile at 102.6?F, tachypneic with an adequate blood pressure. Patient did receive IV fluids and Tylenol. Patient was admitted to the intensive care unit on BiPAP therapy. Since arrival, patient has been relatively dependent on BiPAP therapy secondary to hypoxemia. Patient continues to have right-sided flank pain. Legionella antigen has come back positive. Patient's blood pressure has remained adequate at this time. Morning labs show slight improvement in creatinine. Patient is not able to provide much more additional information at this time. Patient reportedly had a renal transplant at [facility] in [place] approximately 3 years ago. 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 Patient was recently admitted for [facility] and at that time had a creatinine of 1.9. Patient believes her previous creatinine was 1.3 or 1.7. Patient reports she has been compliant with immunosuppressive therapy. 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) Allergies furosemide [From Lasix] Allergy (Verified 01/20/18 14:16) Hives Home Medications: Ambulatory Orders Medication Instructions Recorded Carvedilol [Coreg] 25 mg PO BID 01/20/18 Diphenhydramine HCl [Benadryl 25 mg PO QODAY 01/20/18 Allergy] Famotidine [Pepcid] 20 mg PO BID 01/20/18 Fluticasone 0.05% [Flonase Nasal 2 spray NASAL TID PRN PRN 01/20/18 [place]] Gabapentin [Neurontin] 300 mg PO Q12H 01/20/18 Mycophenolate Mofetil 500 mg PO BID 01/20/18 Nifedipine [Nifedipine ER] 60 mg PO BID 01/20/18 Oxycodone HCl [Roxicodone] 5 mg PO BID 01/20/18 Pravastatin [Pravachol] 40 mg PO QHS 01/20/18 Prednisone 5 mg PO DAILY 01/20/18 Tacrolimus Anhydrous [Prograf] 1 mg PO BID 01/20/18 Zolpidem Tartrate [Ambien] 10 mg PO QHS 01/20/18 Cyclobenzaprine [Flexeril] 10 mg PO TID PRN #10 tab 01/22/18 Insulin Detemir [Levemir] 32 unit SQ DAILY #1 vial 01/22/18 Insulin Aspart [Novolog Flexpen] 6 units SC TIDCM 01/27/18 Surgical History: appendectomy, - - Status post kidney transplant, poor wound debridement, diverting sigmoid colostomy on 07/06/2017, reversed on 07/07/2017, percutaneous tracheostomy, no longer has, left TMA Psychiatric History: No pertinent psych hx 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 Patient did have a CT of the abdomen on 01/21/2018 showing an 8 cm x 5.9 cm x 4.8 cm stomach cyst structure in the right lower abdomen and atrophy of the [place] kidneys. - Physical Exam General: - - RASS -1. Follows commands, but falls asleep relatively quickly. Appears stated age. HEENT: Atraumatic, PERRLA, EOMI, Normocephalic, - - No scleral icterus or injection noted. Oral: No Gingival or Mucosal Lesions/ Ulcerations, Dry Mucosa Neck: Supple, No JVD, No Nodes, Trachea Midline Lungs: No wheeze, No rales, Diminished, Rhonchi, - - Symmetric expansion. No dullness to percussion. Cardiovascular: Regular rate, Regular Rhythm, Normal S1, Normal S2, No murmurs, No rub noted, No Gallop Abdomen: Soft, Hypoactive Bowel Sounds - Right sided, Distended, Guarding, Tender - Right flank Extremities: No clubbing, No cyanosis, No edema, Capillary Refill Less than 3 Seconds Skin: No rashes, No breakdown Musculoskeletal: No Tenderness to Palpation of Joints or Extremities Lymphatic: No Cervical, Supraclavicular, or Inguinal Adenopathy Neurological: Cranial nerves II-XII grossly intact, Neuro grossly intact, Motor Exam 5/5 strength throughout Psych/Mental Status: Anxious, Impulsive, Restless Vital Signs Temp Pulse Resp BP Pulse Ox 38.2 C H 85 23 H 109/54 L 99 01/28/18 05:00 01/28/18 07:00 01/28/18 07:00 01/28/18 07:00 01/28/18 07:00 Oxygen Flow Rate (L/min) 8 Oxygen Delivery Method Bi-pap Weight: 71.9 kg Body Mass Index (BMI) 24.7 Intake and Output for Last 24 Hours 01/26/18 01/27/18 01/28/18 23:59 23:59 23:59 Intake Total 3240 / 3240 Output Total 650 / 650 Balance 2590 / 2590 Laboratory Tests Past 24 Hrs 01/27/18 01/27/18 01/27/18 18:00 19:35 19:35 WBC RBC Hgb Hct MCV MCH MCHC RDW RDW Differential Plt Count MPV Specimen Type Sample Site pH Bicarbonate Actual POC Total CO2 Base Excess O2 Saturation ABG pCO2 ABG pO2 O2 Delivery Device Liter Flow Blood Gas Notified Whom Blood Gas Notified Time Sodium 136 Potassium 3.9 Chloride 105 Carbon Dioxide 18.0 L Anion Gap 13 BUN 39 H Creatinine 3.70 H Estim Creat Clear Calc 19.11 Est GFR (MDRD) Af Amer 18 L Est GFR (MDRD) Non-Af 15 L BUN/Creatinine Ratio 10.5 Glucose 186 H Lactic Acid 1.0 Calcium 8.1 L Tacrolimus MRSA (PCR) Negative 01/27/18 01/27/18 01/28/18 21:35 23:16 04:20 WBC 9.1 RBC 2.94 L Hgb 8.1 L Hct 23.3 L MCV 79.3 L MCH 27.6 MCHC 34.8 RDW 14.8 H RDW Differential 43.0 Plt Count 153 MPV 11.6 Specimen Type ART Sample Site L Radial pH 7.37 Bicarbonate Actual 17.6 L POC Total CO2 19 Base Excess -8 L O2 Saturation 85 L ABG pCO2 30.5 L ABG pO2 51 L O2 Delivery Device Nasal Can Liter Flow 8.0 Blood Gas Notified Whom ICU Blood Gas Notified Time 2310 Sodium Potassium Chloride Carbon Dioxide Anion Gap BUN Creatinine Estim Creat Clear Calc Est GFR (MDRD) Af Amer Est GFR (MDRD) Non-Af BUN/Creatinine Ratio Glucose Lactic Acid Calcium Tacrolimus Pending MRSA (PCR) 01/28/18 04:20 WBC RBC Hgb Hct MCV MCH MCHC RDW RDW Differential Plt Count MPV Specimen Type Sample Site pH Bicarbonate Actual POC Total CO2 Base Excess O2 Saturation ABG pCO2 ABG pO2 O2 Delivery Device Liter Flow Blood Gas Notified Whom Blood Gas Notified Time Sodium 138 Potassium 4.9 Chloride 108 H Carbon Dioxide 16.0 L Anion Gap 14 BUN 38 H Creatinine 3.52 H Estim Creat Clear Calc 20.09 Est GFR (MDRD) Af Amer 19 L Est GFR (MDRD) Non-Af 15 L BUN/Creatinine Ratio 10.8 Glucose 207 H Lactic Acid Calcium 7.5 L Tacrolimus MRSA (PCR) POC Glucose 01/28/18 01/27/18 04:27 21:29 POC Glucose 215 H 170 H Clinical Impression(s) from Imaging Studies Chest X-Ray 01/27/18 14:13 IMPRESSION: Bilateral pulmonary infiltrates. Electronically Signed: Roger Griffith MD at 15:08 EDT Tel [phone], Service support , Assessment/Plan Active and Suspected Problems Severe sepsis (Acute) HCAP (healthcare-associated pneumonia) (Acute) Legionella pneumonia (Acute) Acute respiratory failure with hypoxia (Acute) RECOMMENDATIONS: 1. Consult ID 2. Continue BiPAP therapy, monitor for signs of respiratory muscle fatigue 3. Continue fluid resuscitation 4. Await nephrology recommendations 5. Attempt to obtain old records from [facility] IMPRESSIONS: 1. Acute hypoxic respiratory failure secondary to Legionella pneumonia Patient currently on BiPAP therapy and tolerating well. Cannot exclude patient decompensating over the next 24-48 hours and requiring intubation. Patient does not have a history of obstructive lung disease. Infectious disease will be consulted. Patient is receiving some immunosuppression at this time. Patient may require transition to fluoroquinolone therapy such as Levaquin. Likely okay to discontinue vancomycin. 2. Immunosuppression status post kidney transplant secondary to type 1 diabetes Patient currently receiving some of her immunosuppression. Will defer to nephrology and infectious disease on appropriateness of each immunosuppressive medication. 3. Acute on chronic kidney disease stage III Patient appears to be responding to fluid resuscitation at this time. Patient does have significant hypoxia that may lead to ATN. Continue to monitor renal function on a daily basis. Patient does not have any indication for acute renal replacement therapy at this time. 4. Diabetes mellitus type 1 with retinopathy, chronic kidney disease Patient will likely be n.p.o. secondary to BiPAP requirements. May need to decrease Lantus therapy. Continue to monitor blood sugars every 6 hours. If persistently hypoglycemic, dextrose can be added to IV fluids. 5. Hypertension/lack of baseline medical records/abdominal cyst Complicates care, management, recovery and prognosis. Will attempt to obtain old records to see if cyst has been noted previously. TIME: 45 minutes critical care time spent addressing patient's acute hypoxic respiratory failure, acute kidney injury, diabetes mellitus, review of all data and collaboration with care team. (7 AM to 8 AM) Code Visit [id number]: [id number] Critical care first hour
[2018-01-28 08:11] LABS: Bedside Glucose 150 mg/dL (70-110)
[2018-01-28] MEDS: Insulin Lispro 100 UNIT/ML INSULN.PEN SC ×2 (08:23→18:05)
--- NOTE | 2018-01-28 10:05 | CASEMGMT ---
RN CM Assessment completed. See Link. DC Plan: undetermined. DC PLAN undetermined. -Pt on Bipap in ICU, will continue to follow and assist with DC planning. -Mayn need Home oxygen testing on dc. If Home Oxygen is needed, states he has no preference for DME provider. Bandar MARYN RN ACM
--- NOTE | 2018-01-28 10:41 | PCM.HP.ID ---
Reason for Consult: Respiratory failure with Legionella pneumonia immunocompromised host Consulted by: Dr. Calles History of Present Illness: The patient is a 37 year old F [] This is a 37-year-old -[place] female with long-standing history of diabetes mellitus complicated by end-stage renal disease and underwent renal transplant at [facility] in [facility], [place], patient does suffer some rejection of her transplant and has chronic renal disease. Patient is in [facility] visiting family and developed acute respiratory distress and high fevers. Patient was admitted last night with pulmonary infiltrates and severe sepsis. Interestingly patient was briefly in the hospital roughly 8 days ago for hyperglycemia. Patient is currently responsive but some BiPAP. History is obtained through talking to the nursing staff as well as to the critical care physician. Currently on levofloxacin and cefepime. Patient does suffer worsening renal dysfunction upon this admission compared to her laboratory studies from her previous admission last week. Her chest x-ray I personally reviewed shows bilateral pulmonary infiltrates. Her urine Legionella antigen is positive. Blood cultures are pending. - Medical History Past Medical History (Chronic Problems): Chronic Problems Hyperglycemia due to type 1 diabetes mellitus (Chronic) Hyperglycemia without ketosis (Chronic) DM type 1 (diabetes mellitus, type 1) (Chronic) 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) Allergies/Adverse Reactions: Allergies furosemide [From Lasix] Allergy (Verified 01/20/18 14:16) Hives Home Medications: Ambulatory Orders Medication Instructions Recorded Carvedilol [Coreg] 25 mg PO BID 01/20/18 Diphenhydramine HCl [Benadryl 25 mg PO QODAY 01/20/18 Allergy] Famotidine [Pepcid] 20 mg PO BID 01/20/18 Fluticasone 0.05% [Flonase Nasal 2 spray NASAL TID PRN PRN 01/20/18 [place]] Gabapentin [Neurontin] 300 mg PO Q12H 01/20/18 Mycophenolate Mofetil 500 mg PO BID 01/20/18 Nifedipine [Nifedipine ER] 60 mg PO BID 01/20/18 Oxycodone HCl [Roxicodone] 5 mg PO BID 01/20/18 Pravastatin [Pravachol] 40 mg PO QHS 01/20/18 Prednisone 5 mg PO DAILY 01/20/18 Tacrolimus Anhydrous [Prograf] 1 mg PO BID 01/20/18 Zolpidem Tartrate [Ambien] 10 mg PO QHS 01/20/18 Cyclobenzaprine [Flexeril] 10 mg PO TID PRN #10 tab 01/22/18 Insulin Detemir [Levemir] 32 unit SQ DAILY #1 vial 01/22/18 Insulin Aspart [Novolog Flexpen] 6 units SC TIDCM 01/27/18 Vital Signs Temp Pulse Resp BP Pulse Ox 100.7 F H 89 20 H 109/54 L 96 01/28/18 05:00 01/28/18 09:15 01/28/18 09:15 01/28/18 07:00 01/28/18 09:15 Oxygen Flow Rate (L/min) 8 Oxygen Delivery Method Bi-pap Weight: 71.9 kg Body Mass Index (BMI) 24.7 Laboratory Tests Past 24 Hrs 01/27/18 01/27/18 01/27/18 18:00 19:35 19:35 WBC RBC Hgb Hct MCV MCH MCHC RDW RDW Differential Plt Count MPV Specimen Type Sample Site pH Bicarbonate Actual POC Total CO2 Base Excess O2 Saturation ABG pCO2 ABG pO2 O2 Delivery Device Liter Flow Blood Gas Notified Whom Blood Gas Notified Time Sodium 136 Potassium 3.9 Chloride 105 Carbon Dioxide 18.0 L Anion Gap 13 BUN 39 H Creatinine 3.70 H Estim Creat Clear Calc 19.11 Est GFR (MDRD) Af Amer 18 L Est GFR (MDRD) Non-Af 15 L BUN/Creatinine Ratio 10.5 Glucose 186 H Lactic Acid 1.0 Calcium 8.1 L Tacrolimus MRSA (PCR) Negative 01/27/18 01/27/18 01/28/18 21:35 23:16 04:20 WBC 9.1 RBC 2.94 L Hgb 8.1 L Hct 23.3 L MCV 79.3 L MCH 27.6 MCHC 34.8 RDW 14.8 H RDW Differential 43.0 Plt Count 153 MPV 11.6 Specimen Type ART Sample Site L Radial pH 7.37 Bicarbonate Actual 17.6 L POC Total CO2 19 Base Excess -8 L O2 Saturation 85 L ABG pCO2 30.5 L ABG pO2 51 L O2 Delivery Device Nasal Can Liter Flow 8.0 Blood Gas Notified Whom ICU MD Blood Gas Notified Time 2310 Sodium Potassium Chloride Carbon Dioxide Anion Gap BUN Creatinine Estim Creat Clear Calc Est GFR (MDRD) Af Amer Est GFR (MDRD) Non-Af BUN/Creatinine Ratio Glucose Lactic Acid Calcium Tacrolimus Pending MRSA (PCR) 01/28/18 04:20 WBC RBC Hgb Hct MCV MCH MCHC RDW RDW Differential Plt Count MPV Specimen Type Sample Site pH Bicarbonate Actual POC Total CO2 Base Excess O2 Saturation ABG pCO2 ABG pO2 O2 Delivery Device Liter Flow Blood Gas Notified Whom Blood Gas Notified Time Sodium 138 Potassium 4.9 Chloride 108 H Carbon Dioxide 16.0 L Anion Gap 14 BUN 38 H Creatinine 3.52 H Estim Creat Clear Calc 20.09 Est GFR (MDRD) Af Amer 19 L Est GFR (MDRD) Non-Af 15 L BUN/Creatinine Ratio 10.8 Glucose 207 H Lactic Acid Calcium 7.5 L Tacrolimus MRSA (PCR) - Other Studies Radiology: [] Other Studies: [] Route of nutrition/ use of supplements: [] Nutritional Intake: [] IV Site: [] Yen Catheter: [] Patient is responsive but weak. On BiPAP machine for oxygen support. Lungs coarse breath sounds heart exam S1-S2 abdomen soft no peritoneal signs. - Assessment/Plan Antibiotics: [] Assessment/Plan: [] Active and Suspected Problems Severe sepsis (Acute) HCAP (healthcare-associated pneumonia) (Acute) Legionella pneumonia (Acute) Acute respiratory failure with hypoxia (Acute) Acute legionnaires pneumonia in immunocompromised host. Will continue levofloxacin. Cefepime empirically place her concern of possible gram-negative pathogens. Will closely follow her renal function and her cardiopulmonary status.
[2018-01-28] MEDS: DiphenhydrAMINE 50 MG/ML Syringe 25 MG IV (11:02)
--- NOTE | 2018-01-28 11:12 | PCM.PN.HOSP ---
Patient Problems: Active and Suspected Problems Severe sepsis (Acute) HCAP (healthcare-associated pneumonia) (Acute) Legionella pneumonia (Acute) Acute respiratory failure with hypoxia (Acute) Subjective: Patient seen still remains significantly ill her urine antigen came back positive for Legionella. Antibiotic therapy subsequently adjusted. Patient had to be placed on BiPAP in view of persistent hypoxia. Patient is complaining of right lower quadrant abdominal pain. Objective: GENERAL: Patient appears ill looking. HEENT: Clear conjunctiva, NECK; supple, normal thyroid, CHEST: Diminished to auscultation bilaterally, HEART: Regular S1 S2, tachycardic ABDOMEN: soft, RLQ tender, normoactive bowel sounds, RECTAL: deferred EXTREMITIES: No edema, no clubbing, no cyanosis. VENEREAL DISEASE CONTROL HEAD: Awake; no lateralizing signs. SKIN: No Rash Vitals/I&O's: Vital Signs Temp Pulse Resp BP Pulse Ox 100.7 F H 86 19 H 109/54 L 95 01/28/18 05:00 01/28/18 11:00 01/28/18 11:00 01/28/18 07:00 01/28/18 11:00 Oxygen Flow Rate (L/min) 8 Oxygen Delivery Method Bi-pap Weight: 71.9 kg Body Mass Index (BMI) 24.7 Intake and Output for Last 24 Hours 01/26/18 01/27/18 01/28/18 23:59 23:59 23:59 Intake Total 3240 / 3240 Output Total 650 / 650 Balance 2590 / 2590 Laboratory Results 01/27/18 18:00: MRSA (PCR) Negative 01/27/18 19:35: Sodium 136, Potassium 3.9, Chloride 105, Carbon Dioxide 18.0 L, Anion Gap 13, BUN 39 H, Creatinine 3.70 H, Estim Creat Clear Calc 19.11, Est GFR (MDRD) Af Amer 18 L, Est GFR (MDRD) Non-Af 15 L, BUN/Creatinine Ratio 10.5, Glucose 186 H, Calcium 8.1 L 01/27/18 19:35: Lactic Acid 1.0 01/27/18 21:29: POC Glucose 170 H 01/27/18 21:35: Tacrolimus Pending 01/27/18 23:16: Specimen Type ART, Sample Site L Radial, pH 7.37, Bicarbonate Actual 17.6 L, POC Total CO2 19, Base Excess -8 L, O2 Saturation 85 L, ABG pCO2 30.5 L, ABG pO2 51 L, O2 Delivery Device Nasal Can, Liter Flow 8.0, Blood Gas Notified Whom ICU MD, Blood Gas Notified Time 23101/28/18 04:20: WBC 9.1, RBC 2.94 L, Hgb 8.1 L, Hct 23.3 L, MCV 79.3 L, MCH 27.6, MCHC 34.8, RDW 14.8 H, RDW Differential 43.0, Plt Count 153, MPV 11.6 01/28/18 04:20: Sodium 138, Potassium 4.9, Chloride 108 H, Carbon Dioxide 16.0 L, Anion Gap 14, BUN 38 H, Creatinine 3.52 H, Estim Creat Clear Calc 20.09, Est GFR (MDRD) Af Amer 19 L, Est GFR (MDRD) Non-Af 15 L, BUN/Creatinine Ratio 10.8, Glucose 207 H, Calcium 7.5 L 01/28/18 04:27: POC Glucose 215 H 01/28/18 08:06: POC Glucose 150 H Current Medications Acetaminophen (Tylenol) 650 mg RECTAL Q4H PRN PRN PRN Reason: FEVER Albuterol Sulfate (Ventolin Aerosols) 2.5 mg INHALATION Q2H PRN PRN PRN Reason: SHORTNESS OF BREATH Albuterol/Ipratropium (Duoneb) 3 ml INHALATION Q6H.RT [facility] Last Admin: 01/28/18 06:40 Dose: 3 ml Bisacodyl (Dulcolax) 10 mg RECTAL DAILY PRN PRN PRN Reason: Constipation Dextrose (D50w Syringe) 0 gm IV X1 PRN; Protocol PRN Reason: Hypoglycemia Diphenhydramine HCl (Benadryl) 25 mg PO QODAY [facility] Last Admin: 01/28/18 11:03 Dose: Not Given Diphenhydramine HCl (Benadryl) 25 mg IV QODAY [facility] Docusate Sodium (Colace) 200 mg PO BID PRN PRN PRN Reason: Constipation Fentanyl Citrate (Sublimaze (100mcg Ampule)) 50 mcg IV Q2H PRN PRN PRN Reason: PAIN Fluticasone Propionate (Flonase Nasal [place]) 2 spray NASAL TID PRN PRN PRN Reason: ALLERGIES Glucagon () 1 mg IM .X1 PRN PRN Reason: Hypoglycemia Heparin Sodium (Porcine) (Heparin Na) 5,000 unit SC Q12 [facility] Last Admin: 01/28/18 10:20 Dose: Not Given Sodium Chloride () 1,000 mls @ 75 mls/hr IV .[id number] [facility] Last Admin: 01/28/18 06:56 Dose: 75 mls/hr Cefepime HCl 2 gm/ Sodium (Chloride) 100 mls @ 200 mls/hr IV Q24 [facility] Last Admin: 01/28/18 10:21 Dose: 200 mls/hr Levofloxacin (Levaquin Iv) 750 mg in 150 mls @ 100 mls/hr IV X1 ONE Stop: 01/28/18 11:29 Levofloxacin (Levaquin Iv) 500 mg in 100 mls @ 100 mls/hr IV Q48 [facility] Famotidine 20 mg/ Sodium (Chloride) 10 mls @ 300 mls/hr IV Q24 [facility] Last Admin: 01/28/18 10:31 Dose: 300 mls/hr Insulin Glargine (Lantus (Bkc)) 16 units SC 0600 [facility] Insulin Human Lispro (Humalog Kwikpen (Bkc)) 0 unit SC Q6 [facility] PRN Reason: Protocol Methylprednisolone (Solu-Medrol) 40 mg IV Q24 [facility] Last Admin: 01/28/18 11:02 Dose: 40 mg Ondansetron HCl (Zofran) 4 mg IV Q8H PRN PRN PRN Reason: NAUSEA Oxycodone HCl (Oxyir) 5 mg PO Q4H PRN PRN PRN Reason: Moderate Pain (pain scale 4-5) Last Admin: 01/27/18 18:48 Dose: 5 mg Pravastatin Sodium (Pravachol) 40 mg PO QHS [facility] Last Admin: 01/27/18 21:19 Dose: 40 mg Prednisone () 5 mg PO DAILY@0800 [facility] Last Admin: 01/28/18 10:20 Dose: Not Given Tacrolimus (Prograf) 1 mg PO BID [facility] Last Admin: 01/27/18 21:19 Dose: 1 mg Tacrolimus (Prograf) 0.5 mg SL BID [facility] Last Admin: 01/28/18 10:27 Dose: 0.5 mg Medical Necessity - Tobacco Use Smoking Status: Former smoker Tobacco Use: Cigarettes Assessment/Plan All Active Problems Severe sepsis (Acute) HCAP (healthcare-associated pneumonia) (Acute) Legionella pneumonia (Acute) Acute respiratory failure with hypoxia (Acute) Patient is a 37-year-old lady with history of diabetes mellitus type 1, history of kidney transplant with subsequent rejection presented with progressive shortness of breath imaging studies demonstrated features consistent with pneumonia admitted to the intensive care unit for subsequent management 1. Severe sepsis secondary to healthcare acquired pneumonia with Legionella: Patient has been admitted to intensive care unit managed per protocol with receive IV fluids, broad-spectrum antibiotic therapy initially with Zosyn, ciprofloxacin as well as vancomycin; therapy switch to cefepime and Levaquin following her urine antigen tendon positive for Legionella. A consultation was also placed to Dr. Dalton with infectious disease 2. Healthcare acquired pneumonia with suspected gram-negative organisms management as discussed above 3. Diabetes mellitus type 1 since age 10 did continue with patient home regimen 4. Diabetic nephropathy with previous kidney transplant patient apparently had rejection and was treated with immunotherapy auscultation was placed to Dr. Cam he was notified by the ED prior to patient's admission 5. Acute on chronic kidney disease on IV fluids with monitoring of electrolyte 6. Diabetic retinopathy 7. Chronic kidney disease stage III with previous kidney transplant. Patient currently on Prograf as well as CellCept 8. Hypertension did continue with home meds 9. Right Lower quadrant abdominal pain patient imaging studies with CT obtained on 01/21/2018 demonstrated the presence of a centimeter by 5.9 cm x 5 4.8 cyst in the right adnexa area. Ultrasound ordered for subsequent evaluation 11. DVT prophylaxis SC heparin Code Visit Inpatient E&M: [id number] [facility] Hosp L3
[2018-01-28] MEDS: levoFLOXacin IV 750 MG/150 ML BAG 100 MG IV (12:07)
[2018-01-28] MEDS: Acetaminophen 650 MG Suppository RECTAL (12:08)
[2018-01-28] MEDS: fentaNYL 100 MCG/2 ML Ampul 50 MCG IV ×2 (12:08→14:12)
--- NOTE | 2018-01-28 12:21 | PCM.CONS.R ---
Problem List (1) NEL (acute kidney injury) Status: Acute Consultation - Renal 01/28/18 PCP/ Referring MD: Requesting physician: Dr Calles Primary care physician: Aster Martin MD Reason for Consultation:: NEL - History of Present Illness History of Present Illness: The patient is a 37 year old F admitted to hospital yesterday with respiratory failure. Nephrology consulted for NEL, kidney transplant status. sshe has known history of donor kidney transplant which was performed at [facility] in 2011. Primary cause of kidney failure was diabetes. She used to live in [place] and was recently here visiting her mother who lives in the area. Few days ago she was in house with hyperglycemia. At that time her creatinine was around 1.8. She tells me that her baseline creatinine is around 1.3-1.4. Immunosuppression has listed below. No recent changes in medications. Episode of 1 rejection which was treated successfully about 2 years ago as per patient. Since she has been taking all her medications up until she came into the hospital. Last dose of tacrolimus was yesterday morning before she came in. Came into the hospital with breathing problems. Chest x-ray showed bilateral pneumonia. This morning legionella antigen came back positive. Presented with a creatinine of 3.9 and with resuscitation is now down to 3.3. She has been voiding without any problems as per staff. Denies any graft site tenderness. No one else in the family is sick. Did not travel anywhere else out off home. Originally from [place]. - Allergies Allergies: Allergies furosemide [From Lasix] Allergy (Verified 01/20/18 14:16) Hives - Current Medications Current Medications: Current Medications Acetaminophen (Tylenol) 650 mg RECTAL Q4H PRN PRN PRN Reason: FEVER Last Admin: 01/28/18 12:08 Dose: 650 mg Albuterol Sulfate (Ventolin Aerosols) 2.5 mg INHALATION Q2H PRN PRN PRN Reason: SHORTNESS OF BREATH Albuterol/Ipratropium (Duoneb) 3 ml INHALATION Q6H.RT [facility] Last Admin: 01/28/18 06:40 Dose: 3 ml Bisacodyl (Dulcolax) 10 mg RECTAL DAILY PRN PRN PRN Reason: Constipation Dextrose (D50w Syringe) 0 gm IV X1 PRN; Protocol PRN Reason: Hypoglycemia Diphenhydramine HCl (Benadryl) 25 mg PO QODAY [facility] Last Admin: 01/28/18 11:03 Dose: Not Given Diphenhydramine HCl (Benadryl) 25 mg IV QODAY [facility] Docusate Sodium (Colace) 200 mg PO BID PRN PRN PRN Reason: Constipation Fentanyl Citrate (Sublimaze (100mcg Ampule)) 50 mcg IV Q2H PRN PRN PRN Reason: PAIN Last Admin: 01/28/18 12:08 Dose: 50 mcg Fluticasone Propionate (Flonase Nasal [place]) 2 spray NASAL TID PRN PRN PRN Reason: ALLERGIES Glucagon () 1 mg IM .X1 PRN PRN Reason: Hypoglycemia Heparin Sodium (Porcine) (Heparin Na) 5,000 unit SC Q12 [facility] Last Admin: 01/28/18 10:20 Dose: Not Given Sodium Chloride () 1,000 mls @ 75 mls/hr IV .[id number] [facility] Last Admin: 01/28/18 06:56 Dose: 75 mls/hr Cefepime HCl 2 gm/ Sodium (Chloride) 100 mls @ 200 mls/hr IV Q24 [facility] Last Admin: 01/28/18 10:21 Dose: 200 mls/hr Levofloxacin (Levaquin Iv) 500 mg in 100 mls @ 100 mls/hr IV Q48 [facility] Famotidine 20 mg/ Sodium (Chloride) 10 mls @ 300 mls/hr IV Q24 [facility] Last Admin: 01/28/18 10:31 Dose: 300 mls/hr Sodium Chloride () 250 mls @ 15 mls/hr IV .[id number] PRN PRN Reason: SALINE FLUSH Insulin Glargine (Lantus (Bkc)) 16 units SC 0600 [facility] Last Admin: 01/28/18 11:12 Dose: 16 units Insulin Human Lispro (Humalog Kwikpen (Bk)) 0 unit SC Q6 [facility] PRN Reason: Protocol Methylprednisolone (Solu-Medrol) 40 mg IV Q24 [facility] Last Admin: 01/28/18 11:02 Dose: 40 mg Ondansetron HCl (Zofran) 4 mg IV Q8H PRN PRN PRN Reason: NAUSEA Oxycodone HCl (Oxyir) 5 mg PO Q4H PRN PRN PRN Reason: Moderate Pain (pain scale 4-5) Last Admin: 01/27/18 18:48 Dose: 5 mg Pravastatin Sodium (Pravachol) 40 mg PO QHS [facility] Last Admin: 01/27/18 21:19 Dose: 40 mg Prednisone () 5 mg PO DAILY@0800 [facility] Last Admin: 01/28/18 10:20 Dose: Not Given Sodium Chloride () 5 - 30 ml IV UD PRN PRN Reason: SALINE FLUSH Tacrolimus (Prograf) 1 mg PO BID [facility] Last Admin: 01/27/18 21:19 Dose: 1 mg Tacrolimus (Prograf) 0.5 mg SL BID [facility] Last Admin: 01/28/18 10:27 Dose: 0.5 mg - 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) - Past Surgical History Surgical History: appendectomy, - - Status post kidney transplant, poor wound debridement, diverting sigmoid colostomy on 07/06/2017, reversed on 07/07/2017, percutaneous tracheostomy, no longer has, left TMA - Social History Smoking Status: Former smoker - Family History Maternal History Items: Diabetes, Hypertension Paternal History Items: No pertinent history Review of Systems Constitutional: Denies: Chills, Fever, Weight Change HEENT: Denies: Head Aches, Sinus Congestion, Sinus Drainage Cardiovascular: Denies: Chest Pain, Palpitations Respiratory: Reports: Cough, Shortness of breath at rest. Denies: Sputum production Gastrointestinal: Denies: Abdominal Pain, Nausea, Vomiting Genitourinary: Denies: Dysuria Musculoskeletal: Denies: Joint Pain, Joint Tenderness Skin: Denies: Rash, Wounds Neurological: Denies: Numbness, Tingling, Focal weakness Psychiatric: Denies: Anxiety, Depression, Homicidal Ideations, Suicidal Ideations Hematologic/ Lymphatic: Denies: Easy Bruising, Easy Bleeding Patient Problems: Active and Suspected Problems Severe sepsis (Acute) HCAP (healthcare-associated pneumonia) (Acute) Legionella pneumonia (Acute) Acute respiratory failure with hypoxia (Acute) NEL (acute kidney injury) (Acute) - Physical Exam General: Alert, Oriented x3, Cooperative HEENT: Atraumatic, PERRLA, EOMI, Normocephalic Neck: Supple, No JVD, Negative Carotid Bruits Lungs: Normal air movement Cardiovascular: Regular rate, No murmurs Abdomen: Bowel Sounds Present, Soft, Non Tender Extremities: No edema, Capillary Refill Less than 3 Seconds Skin: No rashes, No breakdown Musculoskeletal: No Tenderness to Palpation of Joints or Extremities Neurological: Cranial nerves II-XII grossly intact Psych/Mental Status: Normal Affect, Appropriate Vital Signs Temp Pulse Resp BP Pulse Ox 100.1 F H 94 28 H 121/74 H 95 01/28/18 10:00 01/28/18 11:00 01/28/18 11:00 01/28/18 11:00 01/28/18 11:00 Oxygen Flow Rate (L/min) 8 Oxygen Delivery Method Nasal Cannula Weight: 71.9 kg Body Mass Index (BMI) 24.7 Intake and Output for Last 24 Hours 01/26/18 01/27/18 01/28/18 23:59 23:59 23:59 Intake Total 3240 / 3240 Output Total 650 / 650 Balance 2590 / 2590 Laboratory Tests Past 24 Hrs 01/27/18 01/27/18 01/27/18 18:00 19:35 19:35 WBC RBC Hgb Hct MCV MCH MCHC RDW RDW Differential Plt Count MPV Specimen Type Sample Site pH Bicarbonate Actual POC Total CO2 Base Excess O2 Saturation ABG pCO2 ABG pO2 O2 Delivery Device Liter Flow Blood Gas Notified Whom Blood Gas Notified Time Sodium 136 Potassium 3.9 Chloride 105 Carbon Dioxide 18.0 L Anion Gap 13 BUN 39 H Creatinine 3.70 H Estim Creat Clear Calc 19.11 Est GFR (MDRD) Af Amer 18 L Est GFR (MDRD) Non-Af 15 L BUN/Creatinine Ratio 10.5 Glucose 186 H Lactic Acid 1.0 Calcium 8.1 L Tacrolimus MRSA (PCR) Negative 01/27/18 01/27/18 01/28/18 21:35 23:16 04:20 WBC 9.1 RBC 2.94 L Hgb 8.1 L Hct 23.3 L MCV 79.3 L MCH 27.6 MCHC 34.8 RDW 14.8 H RDW Differential 43.0 Plt Count 153 MPV 11.6 Specimen Type ART Sample Site L Radial pH 7.37 Bicarbonate Actual 17.6 L POC Total CO2 19 Base Excess -8 L O2 Saturation 85 L ABG pCO2 30.5 L ABG pO2 51 L O2 Delivery Device Nasal Can Liter Flow 8.0 Blood Gas Notified Whom ICU MD Blood Gas Notified Time 2310 Sodium Potassium Chloride Carbon Dioxide Anion Gap BUN Creatinine Estim Creat Clear Calc Est GFR (MDRD) Af Amer Est GFR (MDRD) Non-Af BUN/Creatinine Ratio Glucose Lactic Acid Calcium Tacrolimus Pending MRSA (PCR) 01/28/18 04:20 WBC RBC Hgb Hct MCV MCH MCHC RDW RDW Differential Plt Count MPV Specimen Type Sample Site pH Bicarbonate Actual POC Total CO2 Base Excess O2 Saturation ABG pCO2 ABG pO2 O2 Delivery Device Liter Flow Blood Gas Notified Whom Blood Gas Notified Time Sodium 138 Potassium 4.9 Chloride 108 H Carbon Dioxide 16.0 L Anion Gap 14 BUN 38 H Creatinine 3.52 H Estim Creat Clear Calc 20.09 Est GFR (MDRD) Af Amer 19 L Est GFR (MDRD) Non-Af 15 L BUN/Creatinine Ratio 10.8 Glucose 207 H Lactic Acid Calcium 7.5 L Tacrolimus MRSA (PCR) POC Glucose 01/28/18 01/28/18 01/27/18 08:06 04:27 21:29 POC Glucose 150 H 215 H 170 H Assessment/Plan All Active Problems Severe sepsis (Acute) HCAP (healthcare-associated pneumonia) (Acute) Legionella pneumonia (Acute) Acute respiratory failure with hypoxia (Acute) NEL (acute kidney injury) (Acute) donor kidney transplant done in 2011 as per patient at [facility] baseline creatinine apparently around 1.3. Admitted with a creatinine of 3.9, today down to 3.3. At home she is on triple immunosuppression tacrolimus, CellCept, prednisone. Now diagnosed with Legionella pneumonia. Acute renal failure. Likely related to sepsis. Creatinine is improving. Urine output is adequate. Kidney transplant. On triple immunosuppression. Yesterday she was on nasal cannula an unknown, today breathing status looks somewhat worse with BiPAP requirement. Unable to take any medications by mouth. Due to severe infection will hold CellCept. Will convert tacrolimus to sublingual since she is nothing by mouth. Change steroids to IV. Currently on Solu-Medrol 40 mg IV daily. If she continues to be in this breathing situation, we will hold tacrolimus and do CellCept IV. Tacrolimus level has been sent yesterday evening. Results are pending. If her renal function worsens or she remains nothing by mouth status, she will be transferred to a tertiary care center d/w Dr Calles d/w Dr Jackson
--- NOTE | 2018-01-28 12:22 | NURSING ---
abd US in progress
[2018-01-28] MEDS: 0.9% NaCl Peripheral Flush Adult/Peds IV (14:13)
[2018-01-28 14:15] LABS: Bedside Glucose 118 mg/dL (70-110)
[2018-01-28 18:11] LABS: Bedside Glucose 181 mg/dL (70-110)
[2018-01-28] MEDS: Pravastatin 40 MG Tablet PO (21:31)
[2018-01-28] MEDS: oxyCODONE 5 MG Tablet PO (21:31)
[2018-01-28] MEDS: Tacrolimus Anhydrous 1 MG Capsule PO (21:31)
[2018-01-29] VITALS (19 sets, daily range): BP systolic 113–147; BP diastolic 62–88; PULSE 88–96; RESP 12–25; TEMP 36.6–37.1; O2SAT 90–100
[2018-01-29] MEDS: Insulin Lispro 100 UNIT/ML INSULN.PEN SC ×4 (00:04→16:31)
[2018-01-29] MEDS: Ipratropium/Albuterol Sulfate 3 ML AMPUL.NEB INHALATION ×4 (01:20→19:22)
[2018-01-29] MEDS: fentaNYL 100 MCG/2 ML Ampul 50 MCG IV (02:19)
[2018-01-29 05:02] LABS: Hematocrit 24.1 % (37-47); Hemoglobin 8.1 g/dl (12.0-15.0); Mean Corp Hgb Conc 33.6 g/gl (32-36); Mean Corpuscular Hgb 26.8 pg (27.0-32.0); Mean Corpuscular Volume 79.8 fL (81-99); Mean Platelet Vol. 11.1 fl (6.2-12.0); Platelet Count 211 K/mm3 (150-450); RBC Distribution Width CV 14.8 % (11.6-14.6); RBC Distribution Width SD 43.2 fl (35.1-43.9); Red Blood Count 3.02 M/mm3 (4.2-5.4); White Blood Count 10.7 K/mm3 (4.4-11.0)
[2018-01-29 05:10] LABS: Scan Indicated on CBC? Y/N NO
[2018-01-29 05:16] LABS: Bedside Glucose 275 mg/dL (70-110)
[2018-01-29 05:22] LABS: Anion Gap 14 (5-15); BUN 41 mg/dL (7-18); BUN/Creat Ratio 11.3 RATIO (10-20); Calcium,Total 7.9 mg/dL (8.5-10.1); Chloride 109 mmol/L (98-107); Creatinine, Serum 3.64 mg/dL (0.55-1.02); EST Glomerular Filtration Rate 15 mL/min (>60); Est Glom Filt Rate - Afr Amer 18 mL/min (>60); Estimated Creatinine Clearance 19.43 ml/min; Glucose 254 mg/dL (74-106); Potassium 4.7 mmol/L (3.5-5.1); Sodium Level 138 mmol/L (136-145)
--- NOTE | 2018-01-29 06:37 | PCM.PN.INT ---
Subjective: The patient was seen and examined at the bedside this morning. Events from the last 24 hours have been reviewed. The patient is currently afebrile, hemodynamically stable and maintaining appropriate oxygen saturations on 3 L/min via nasal cannula. Overnight nursing staff report that the patient has been increasingly delirious, which they feel may be secondary to the narcotic pain medications the patient is currently receiving. Objective: The patient's most recent lab work, culture data and imaging studies have all been personally reviewed. Blood and urine cultures are pending. Urine Legionella antigen was positive. Urine streptococcal antigen was negative. Expectorated sputum culture is currently pending. General: Alert, Cooperative, Confused HEENT: Atraumatic, PERRLA, Normocephalic Oral: No Gingival or Mucosal Lesions/ Ulcerations Neck: Supple, No Nodes, Trachea Midline Lungs: No wheeze, No rales, Diminished, Rhonchi Cardiovascular: Regular rate, Regular Rhythm, Normal S1, Normal S2, No murmurs Abdomen: Bowel Sounds Present, Soft, Tender Extremities: No clubbing, No cyanosis, No edema Skin: No breakdown Musculoskeletal: No Tenderness to Palpation of Joints or Extremities Lymphatic: No Cervical, Supraclavicular, or Inguinal Adenopathy Neurological: Neuro grossly intact Psych/Mental Status: Normal Affect, Appropriate Vital Signs Temp Pulse Resp BP Pulse Ox 98.7 F 91 22 H 122/62 H 90 01/29/18 05:00 01/29/18 06:00 01/29/18 06:00 01/29/18 06:00 01/29/18 06:00 Oxygen Flow Rate (L/min) 3 Oxygen Delivery Method Nasal Cannula Weight: 159 lb 2.78 oz Body Mass Index (BMI) 24.7 Intake and Output for Last 24 Hours 01/27/18 01/28/18 01/29/18 23:59 23:59 23:59 Intake Total 4215 / 4215 1260 / 1260 Output Total 1475 / 1475 400 / 400 Balance 2740 / 2740 860 / 860 Labs (Last 48 Hours) 01/27/18 01/27/18 01/27/18 18:00 19:35 19:35 WBC RBC Hgb Hct MCV MCH MCHC RDW RDW Differential Plt Count MPV Specimen Type Sample Site pH Bicarbonate Actual POC Total CO2 Base Excess O2 Saturation ABG pCO2 ABG pO2 O2 Delivery Device Liter Flow Blood Gas Notified Whom Blood Gas Notified Time Sodium 136 Potassium 3.9 Chloride 105 Carbon Dioxide 18.0 L Anion Gap 13 BUN 39 H Creatinine 3.70 H Estim Creat Clear Calc 19.11 Est GFR (MDRD) Af Amer 18 L Est GFR (MDRD) Non-Af 15 L BUN/Creatinine Ratio 10.5 Glucose 186 H Lactic Acid 1.0 Calcium 8.1 L Tacrolimus MRSA (PCR) Negative POC Glucose 01/27/18 01/27/18 01/27/18 21:29 21:35 23:16 WBC RBC Hgb Hct MCV MCH MCHC RDW RDW Differential Plt Count MPV Specimen Type ART Sample Site L Radial pH 7.37 Bicarbonate Actual 17.6 L POC Total CO2 19 Base Excess -8 L O2 Saturation 85 L ABG pCO2 30.5 L ABG pO2 51 L O2 Delivery Device Nasal Can Liter Flow 8.0 Blood Gas Notified Whom ICU MD Blood Gas Notified Time 2310 Sodium Potassium Chloride Carbon Dioxide Anion Gap BUN Creatinine Estim Creat Clear Calc Est GFR (MDRD) Af Amer Est GFR (MDRD) Non-Af BUN/Creatinine Ratio Glucose Lactic Acid Calcium Tacrolimus Pending MRSA (PCR) POC Glucose 170 H 01/28/18 01/28/18 01/28/18 04:20 04:20 04:27 WBC 9.1 RBC 2.94 L Hgb 8.1 L Hct 23.3 L MCV 79.3 L MCH 27.6 MCHC 34.8 RDW 14.8 H RDW Differential 43.0 Plt Count 153 MPV 11.6 Specimen Type Sample Site pH Bicarbonate Actual POC Total CO2 Base Excess O2 Saturation ABG pCO2 ABG pO2 O2 Delivery Device Liter Flow Blood Gas Notified Whom Blood Gas Notified Time Sodium 138 Potassium 4.9 Chloride 108 H Carbon Dioxide 16.0 L Anion Gap 14 BUN 38 H Creatinine 3.52 H Estim Creat Clear Calc 20.09 Est GFR (MDRD) Af Amer 19 L Est GFR (MDRD) Non-Af 15 L BUN/Creatinine Ratio 10.8 Glucose 207 H Lactic Acid Calcium 7.5 L Tacrolimus MRSA (PCR) POC Glucose 215 H 01/28/18 01/28/18 01/28/18 08:06 12:03 18:01 WBC RBC Hgb Hct MCV MCH MCHC RDW RDW Differential Plt Count MPV Specimen Type Sample Site pH Bicarbonate Actual POC Total CO2 Base Excess O2 Saturation ABG pCO2 ABG pO2 O2 Delivery Device Liter Flow Blood Gas Notified Whom Blood Gas Notified Time Sodium Potassium Chloride Carbon Dioxide Anion Gap BUN Creatinine Estim Creat Clear Calc Est GFR (MDRD) Af Amer Est GFR (MDRD) Non-Af BUN/Creatinine Ratio Glucose Lactic Acid Calcium Tacrolimus MRSA (PCR) POC Glucose 150 H 118 H 181 H 01/29/18 01/29/18 01/29/18 04:50 04:50 05:02 WBC 10.7 RBC 3.02 L Hgb 8.1 L Hct 24.1 L MCV 79.8 L MCH 26.8 L MCHC 33.6 RDW 14.8 H RDW Differential 43.2 Plt Count 211 MPV 11.1 Specimen Type Sample Site pH Bicarbonate Actual POC Total CO2 Base Excess O2 Saturation ABG pCO2 ABG pO2 O2 Delivery Device Liter Flow Blood Gas Notified Whom Blood Gas Notified Time Sodium 138 Potassium 4.7 Chloride 109 H Carbon Dioxide 15.0 L Anion Gap 14 BUN 41 H Creatinine 3.64 H Estim Creat Clear Calc 19.43 Est GFR (MDRD) Af Amer 18 L Est GFR (MDRD) Non-Af 15 L BUN/Creatinine Ratio 11.3 Glucose 254 H Lactic Acid Calcium 7.9 L Tacrolimus MRSA (PCR) POC Glucose 275 H Clinical Impression(s) from Imaging Studies Chest X-Ray 01/27/18 14:13 IMPRESSION: Bilateral pulmonary infiltrates. Electronically Signed: Roger Griffith MD at 15:08 EDT Tel [phone], Service support , Pelvis Ultrasound 01/28/18 11:21 IMPRESSION: 1. 7.9 cm fluid-filled cystic structure in the right hemipelvis inseparable from the right ovary and correlating to the area of question on earlier CT. This is a few centimeters away from the transplant kidney itself, but differential would still include both right ovarian cyst as well as lymphocele. 2. Two pedunculated fibroids emanating from the fundus of the uterus, as described. 3. Normal endometrial thickness. 4. Normal left ovary. Electronically Signed: Britton Brown MD at 13:50 EDT , Service support , Medical Necessity - Tobacco Use Smoking Status: Former smoker Tobacco Use: Cigarettes Assessment/Plan All Active Problems Severe sepsis (Acute) HCAP (healthcare-associated pneumonia) (Acute) Legionella pneumonia (Acute) Acute respiratory failure with hypoxia (Acute) NEL (acute kidney injury) (Acute) RECOMMENDATIONS: 1. Continue antibiotics, pending finalized culture results. 2. Continue to wean supplemental oxygen to maintain saturations at or above 90%. 3. Encourage incentive spirometer use and mobilize patient as tolerated. 4. Transition to before meals/at bedtime insulin regimen. 5. Continue immunosuppression regimen per nephrology recommendations. 6. The patient is medically stable for transfer out of the intensive care unit. IMPRESSIONS: 1. Acute hypoxic respiratory failure secondary to Legionella pneumonia The patient's oxygenation status appears to be slowly improving. She is currently afebrile hemodynamically stable. We will plan to continue cefepime and Levaquin. If the patient's sputum culture ends up being negative, cefepime can be discontinued. Continue to wean supplemental oxygen to maintain saturations at or above 90%. Encourage incentive spirometer use and mobilize patient as tolerated. 2. Immunosuppression status post kidney transplant secondary to type 1 diabetes Continue immunosuppression regimen per nephrology recommendations. 3. Acute on chronic kidney disease stage III Creatinine appears slightly better than that noted on admission to the hospital. Nephrology is following. Appreciate recommendations. Urine output has been good. 4. Diabetes mellitus type 1 with retinopathy, chronic kidney disease Transition to before meals and at bedtime sliding scale coverage and continue basal insulin regimen. 5. Hypertension/lack of baseline medical records/abdominal cyst Complicates care, management, recovery and prognosis. Okay to restart outpatient antihypertensive regimen. This note was generated with Zipnosisation software. It may contain incorrect words, spelling, and punctuation that were not noted in checking the note before signing. Code Visit Inpatient E&M: 14406 Subs Hosp L3
--- NOTE | 2018-01-29 07:28 | PCM.PN.HOSP ---
Patient Problems: Active and Suspected Problems Severe sepsis (Acute) HCAP (healthcare-associated pneumonia) (Acute) Legionella pneumonia (Acute) Acute respiratory failure with hypoxia (Acute) NEL (acute kidney injury) (Acute) Subjective: Patient seen had a relatively uneventful night. Currently remains afebrile kidney function however still remains unchanged. Patient complaining of nausea this a.m. Objective: GENERAL: Patient appears ill looking. HEENT: Clear conjunctiva, NECK; supple, normal thyroid, CHEST: Diminished to auscultation bilaterally, HEART: Regular S1 S2, tachycardic ABDOMEN: soft, RLQ tender, normoactive bowel sounds, RECTAL: deferred EXTREMITIES: No edema, no clubbing, no cyanosis. 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 SKIN: No Rash Vitals/I&O's: Vital Signs Temp Pulse Resp BP Pulse Ox 98.7 F 91 22 H 122/62 H 90 01/29/18 05:00 01/29/18 06:00 01/29/18 06:00 01/29/18 06:00 01/29/18 06:00 Oxygen Flow Rate (L/min) 3 Oxygen Delivery Method Nasal Cannula Weight: 72.2 kg Body Mass Index (BMI) 24.7 Intake and Output for Last 24 Hours 01/27/18 01/28/18 01/29/18 23:59 23:59 23:59 Intake Total 4215 / 4215 1260 / 1260 Output Total 1475 / 1475 400 / 400 Balance 2740 / 2740 860 / 860 Laboratory Results 01/28/18 08:06: POC Glucose 150 H 01/28/18 12:03: POC Glucose 118 H 01/28/18 18:01: POC Glucose 181 H 01/29/18 04:50: Sodium 138, Potassium 4.7, Chloride 109 H, Carbon Dioxide 15.0 L, Anion Gap 14, BUN 41 H, Creatinine 3.64 H, Estim Creat Clear Calc 19.43, Est GFR (MDRD) Af Amer 18 L, Est GFR (MDRD) Non-Af 15 L, BUN/Creatinine Ratio 11.3, Glucose 254 H, Calcium 7.9 L 01/29/18 04:50: WBC 10.7, RBC 3.02 L, Hgb 8.1 L, Hct 24.1 L, MCV 79.8 L, MCH 26.8 L, MCHC 33.6, RDW 14.8 H, RDW Differential 43.2, Plt Count 211, MPV 11.1 01/29/18 05:02: POC Glucose 275 H Current Medications Acetaminophen (Tylenol) 650 mg PO Q6H PRN PRN PRN Reason: FEVER Albuterol Sulfate (Ventolin Aerosols) 2.5 mg INHALATION Q2H PRN PRN PRN Reason: SHORTNESS OF BREATH Albuterol/Ipratropium (Duoneb) 3 ml INHALATION Q6H.RT [facility] Last Admin: 01/29/18 07:16 Dose: 3 ml Bisacodyl (Dulcolax) 10 mg RECTAL DAILY PRN PRN PRN Reason: Constipation Dextrose (D50w Syringe) 0 gm IV X1 PRN; Protocol PRN Reason: Hypoglycemia Docusate Sodium (Colace) 200 mg PO BID PRN PRN PRN Reason: Constipation Fluticasone Propionate (Flonase Nasal [place]) 2 spray NASAL TID PRN PRN PRN Reason: ALLERGIES Glucagon () 1 mg IM .X1 PRN PRN Reason: Hypoglycemia Heparin Sodium (Porcine) (Heparin Na) 5,000 unit SC Q12 [facility] Last Admin: 01/28/18 21:34 Dose: Not Given Sodium Chloride () 1,000 mls @ 75 mls/hr IV .[id number] [facility] Last Admin: 01/28/18 21:34 Dose: Not Given Cefepime HCl 2 gm/ Sodium (Chloride) 100 mls @ 200 mls/hr IV Q24 [facility] Last Admin: 01/28/18 10:21 Dose: 200 mls/hr Levofloxacin (Levaquin Iv) 500 mg in 100 mls @ 100 mls/hr IV Q48 [facility] Famotidine 20 mg/ Sodium (Chloride) 10 mls @ 300 mls/hr IV Q24 [facility] Last Admin: 01/28/18 10:31 Dose: 300 mls/hr Sodium Chloride () 250 mls @ 15 mls/hr IV .[id number] PRN PRN Reason: SALINE FLUSH Insulin Glargine (Lantus (Bkc)) 16 units SC 0600 [facility] Last Admin: 01/29/18 05:05 Dose: 16 units Insulin Human Lispro (Humalog Kwikpen (Bk)) 0 unit SC Q6 ANA MARIA PRN Reason: Protocol Last Admin: 01/29/18 05:04 Dose: 4 u Methylprednisolone (Solu-Medrol) 40 mg IV Q24 [facility] Last Admin: 01/28/18 11:02 Dose: 40 mg Ondansetron HCl (Zofran) 4 mg IV Q8H PRN PRN PRN Reason: NAUSEA Pravastatin Sodium (Pravachol) 40 mg PO QHS [facility] Last Admin: 01/28/18 21:31 Dose: 40 mg Prednisone () 5 mg PO DAILY@0800 [facility] Last Admin: 01/28/18 10:20 Dose: Not Given Sodium Chloride () 5 - 30 ml IV UD PRN PRN Reason: SALINE FLUSH Last Admin: 01/28/18 14:13 Dose: 30 ml Tacrolimus (Prograf) 1 mg PO BID [facility] Last Admin: 01/28/18 21:31 Dose: 1 mg Medical Necessity - Tobacco Use Smoking Status: Former smoker Tobacco Use: Cigarettes Assessment/Plan All Active Problems Severe sepsis (Acute) HCAP (healthcare-associated pneumonia) (Acute) Legionella pneumonia (Acute) Acute respiratory failure with hypoxia (Acute) NEL (acute kidney injury) (Acute) Patient is a 37-year-old lady with history of diabetes mellitus type 1, history of kidney transplant with subsequent rejection presented with progressive shortness of breath imaging studies demonstrated features consistent with pneumonia admitted to the intensive care unit for subsequent management. Patient diagnostic workup consistent with Legionella pneumonia for which patient has been managed with cefepime and Levaquin 1. Severe sepsis secondary to healthcare acquired pneumonia with Legionella: Patient has been admitted to intensive care unit managed per protocol with receive IV fluids, broad-spectrum antibiotic therapy initially with Zosyn, ciprofloxacin as well as vancomycin; therapy switch to cefepime and Levaquin following her urine antigen positive for Legionella. A consultation was also placed to Dr. Dalton with infectious disease: His notes and recommendations reviewed 2. Acute hypoxic respiratory failure secondary to healthcare acquired pneumonia Legionella; management as discussed above patient in addition was managed briefly on BiPAP 3. Diabetes mellitus type 1 since age 10 did continue with patient home regimen 4. Diabetic nephropathy with previous kidney transplant patient apparently had rejection and was treated with immunotherapy auscultation was placed to Dr. Cam he was notified by the ED prior to patient's admission 5. Acute on chronic kidney disease on IV fluids with monitoring of electrolyte; Consultation was placed to Dr. Cam: Subsequent management deferred 6. Diabetic retinopathy 7. Chronic kidney disease stage III with previous kidney transplant. Patient currently on Prograf as well as CellCept. Consultation was placed to Dr. Cam 8. Hypertension did continue with home meds 9. Right Lower quadrant abdominal pain patient imaging studies with CT obtained on 01/21/2018 demonstrated the presence of a centimeter by 5.9 cm x 5 4.8 cyst in the right adnexa area. Ultrasound ordered for subsequent evaluation and ultrasound demonstrated questionable ovarian cyst 11. DVT prophylaxis SC heparin Clinical Impression(s) from Imaging Studies Chest X-Ray 01/27/18 14:13 IMPRESSION: Bilateral pulmonary infiltrates. Electronically Signed: Roger Griffith MD at 15:08 EDT Tel [phone], Service support , Pelvis Ultrasound 01/28/18 11:21 IMPRESSION: 1. 7.9 cm fluid-filled cystic structure in the right hemipelvis inseparable from the right ovary and correlating to the area of question on earlier CT. This is a few centimeters away from the transplant kidney itself, but differential would still include both right ovarian cyst as well as lymphocele. 2. Two pedunculated fibroids emanating from the fundus of the uterus, as described. 3. Normal endometrial thickness. 4. Normal left ovary. Electronically Signed: Britton Brown MD at 13:50 EDT , Service support , Active Medications Acetaminophen (Tylenol) 650 mg PO Q6H PRN PRN PRN Reason: FEVER Albuterol Sulfate (Ventolin Aerosols) 2.5 mg INHALATION Q2H PRN PRN PRN Reason: SHORTNESS OF BREATH Albuterol/Ipratropium (Duoneb) 3 ml INHALATION Q6H.RT ANA MARIA Last Admin: 01/29/18 07:16 Dose: 3 ml Bisacodyl (Dulcolax) 10 mg RECTAL DAILY PRN PRN PRN Reason: Constipation Dextrose (D50w Syringe) 0 gm IV X1 PRN; Protocol PRN Reason: Hypoglycemia Docusate Sodium (Colace) 200 mg PO BID PRN PRN PRN Reason: Constipation Fluticasone Propionate (Flonase Nasal [place]) 2 spray NASAL TID PRN PRN PRN Reason: ALLERGIES Glucagon () 1 mg IM .X1 PRN PRN Reason: Hypoglycemia Heparin Sodium (Porcine) (Heparin Na) 5,000 unit SC Q12 [facility] Last Admin: 01/28/18 21:34 Dose: Not Given Sodium Chloride () 1,000 mls @ 75 mls/hr IV .[id number] [facility] Last Admin: 01/28/18 21:34 Dose: Not Given Cefepime HCl 2 gm/ Sodium (Chloride) 100 mls @ 200 mls/hr IV Q24 [facility] Last Admin: 01/28/18 10:21 Dose: 200 mls/hr Levofloxacin (Levaquin Iv) 500 mg in 100 mls @ 100 mls/hr IV Q48 [facility] Famotidine 20 mg/ Sodium (Chloride) 10 mls @ 300 mls/hr IV Q24 [facility] Last Admin: 01/28/18 10:31 Dose: 300 mls/hr Sodium Chloride () 250 mls @ 15 mls/hr IV .[id number] PRN PRN Reason: SALINE FLUSH Insulin Glargine (Lantus (Bkc)) 16 units SC 0600 [facility] Last Admin: 01/29/18 05:05 Dose: 16 units Insulin Human Lispro (Humalog Kwikpen (Bkc)) 0 unit SC Q6 ANA MARIA PRN Reason: Protocol Last Admin: 01/29/18 05:04 Dose: 4 u Methylprednisolone (Solu-Medrol) 40 mg IV Q24 [facility] Last Admin: 01/28/18 11:02 Dose: 40 mg Ondansetron HCl (Zofran) 4 mg IV Q8H PRN PRN PRN Reason: NAUSEA Pravastatin Sodium (Pravachol) 40 mg PO QHS [facility] Last Admin: 01/28/18 21:31 Dose: 40 mg Prednisone () 5 mg PO DAILY@0800 [facility] Last Admin: 01/28/18 10:20 Dose: Not Given Sodium Chloride () 5 - 30 ml IV UD PRN PRN Reason: SALINE FLUSH Last Admin: 01/28/18 14:13 Dose: 30 ml Tacrolimus (Prograf) 1 mg PO BID [facility] Last Admin: 01/28/18 21:31 Dose: 1 mg Code Visit Inpatient E&M: 79916 Subs Hosp L3
[2018-01-29] MEDS: predniSONE 5 MG Tablet PO (08:30)
--- NOTE | 2018-01-29 09:28 | CASEMGMT ---
SW participated in ICU rounds, pt's boyfriend present. SW/CM will continue to follow for any discharge needs. NANY Capellan, MOSS BLEACHER
[2018-01-29] MEDS: Tacrolimus Anhydrous 1 MG Capsule PO (09:44)
[2018-01-29] MEDS: Famotidine 20 MG Tablet PO (09:44)
[2018-01-29] MEDS: 0.9% Normal Saline 1,000 ML 75 ML IV (09:56)
[2018-01-29 10:31] LABS: Bedside Glucose 273 mg/dL (70-110)
--- NOTE | 2018-01-29 11:17 | PCM.PN.ID ---
Patient Problems: Active and Suspected Problems Severe sepsis (Acute) HCAP (healthcare-associated pneumonia) (Acute) Legionella pneumonia (Acute) Acute respiratory failure with hypoxia (Acute) NEL (acute kidney injury) (Acute) Subjective: Patient is alert overall clinically improved. Mentating appropriately. Currently on 3 L nasal cannula. Respiratory status improving. Fever curve noted Objective: Alert and oriented does not appear toxic lungs and some scattered rhonchi heart exam S1-S2 abdomen soft nontender - Physical Exam Vital Signs Temp Pulse Resp BP Pulse Ox 98.0 F 92 18 147/87 H 95 01/29/18 11:00 01/29/18 11:00 01/29/18 11:00 01/29/18 11:00 01/29/18 11:00 Oxygen Flow Rate (L/min) 3 Oxygen Delivery Method Nasal Cannula Weight: 72.2 kg Body Mass Index (BMI) 24.7 Intake and Output for Last 24 Hours 01/27/18 01/28/18 01/29/18 23:59 23:59 23:59 Intake Total 4215 / 4215 1260 / 1260 Output Total 1475 / 1475 400 / 400 Balance 2740 / 2740 860 / 860 Laboratory Tests Past 24 Hrs 01/29/18 01/29/18 04:50 04:50 WBC 10.7 RBC 3.02 L Hgb 8.1 L Hct 24.1 L MCV 79.8 L MCH 26.8 L MCHC 33.6 RDW 14.8 H RDW Differential 43.2 Plt Count 211 MPV 11.1 Sodium 138 Potassium 4.7 Chloride 109 H Carbon Dioxide 15.0 L Anion Gap 14 BUN 41 H Creatinine 3.64 H Estim Creat Clear Calc 19.43 Est GFR (MDRD) Af Amer 18 L Est GFR (MDRD) Non-Af 15 L BUN/Creatinine Ratio 11.3 Glucose 254 H Calcium 7.9 L POC Glucose 01/29/18 01/28/18 01/28/18 05:02 23:54 18:01 POC Glucose 275 H 273 H 181 H 01/28/18 12:03 POC Glucose 118 H Medical Necessity - Tobacco Use Smoking Status: Former smoker Tobacco Use: Cigarettes Route of nutrition/ use of supplements: [] Nutritional Intake: [] IV Site: [] Yen Catheter: [] - Assessment/Plan Legionnaires pneumonia in immunocompromised host. At this point we will continue levofloxacin. Vangie to discontinue cefepime. Continue supportive care.
[2018-01-29 12:25] LABS: Bedside Glucose 291 mg/dL (70-110)
[2018-01-29] MEDS: Acetaminophen 325 MG Tablet 650 MG PO (13:15)
--- NOTE | 2018-01-29 13:57 | PCM.PN.REN ---
Patient Problems: Active and Suspected Problems Severe sepsis (Acute) HCAP (healthcare-associated pneumonia) (Acute) Legionella pneumonia (Acute) Acute respiratory failure with hypoxia (Acute) NEL (acute kidney injury) (Acute) Subjective: no new complaints breathing is significantly better now down to nasal cannula at 2 L no fevers - Physical Exam General: Alert, Oriented x3, Cooperative HEENT: Atraumatic, PERRLA, EOMI, Normocephalic Neck: Supple, No JVD, Negative Carotid Bruits Lungs: Clear to auscultation, Normal air movement Cardiovascular: Regular rate, No murmurs Abdomen: Bowel Sounds Present, Soft, Non Tender Extremities: No edema, Capillary Refill Less than 3 Seconds Skin: No rashes, No breakdown Musculoskeletal: No Tenderness to Palpation of Joints or Extremities Neurological: Cranial nerves II-XII grossly intact Psych/Mental Status: Normal Affect, Appropriate Vital Signs Temp Pulse Resp BP Pulse Ox 98.4 F 94 18 147/73 H 96 01/29/18 13:40 01/29/18 13:40 01/29/18 13:40 01/29/18 13:40 01/29/18 13:40 Oxygen Flow Rate (L/min) 2 Oxygen Delivery Method Nasal Cannula Weight: 72.2 kg Body Mass Index (BMI) 24.7 Intake and Output for Last 24 Hours 01/27/18 01/28/18 01/29/18 23:59 23:59 23:59 Intake Total 4215 / 4215 3100 / 3100 Output Total 1475 / 1475 400 / 400 Balance 2740 / 2740 2700 / 2700 Microbiology Past 72 Hours 01/28/18 14:00 Gram Stain - Final Sputum, Expectorated/Coughed Respiratory Culture - Preliminary Appears to be normal respiratory won. Further studies to follow. Laboratory Tests Past 24 Hrs 01/29/18 01/29/18 04:50 04:50 WBC 10.7 RBC 3.02 L Hgb 8.1 L Hct 24.1 L MCV 79.8 L MCH 26.8 L MCHC 33.6 RDW 14.8 H RDW Differential 43.2 Plt Count 211 MPV 11.1 Sodium 138 Potassium 4.7 Chloride 109 H Carbon Dioxide 15.0 L Anion Gap 14 BUN 41 H Creatinine 3.64 H Estim Creat Clear Calc 19.43 Est GFR (MDRD) Af Amer 18 L Est GFR (MDRD) Non-Af 15 L BUN/Creatinine Ratio 11.3 Glucose 254 H Calcium 7.9 L POC Glucose 01/29/18 01/29/18 01/28/18 12:16 05:02 23:54 POC Glucose 291 H 275 H 273 H 01/28/18 01/28/18 18:01 12:03 POC Glucose 181 H 118 H Medical Necessity - Tobacco Use Smoking Status: Former smoker Tobacco Use: Cigarettes Assessment/Plan All Active Problems Severe sepsis (Acute) HCAP (healthcare-associated pneumonia) (Acute) Legionella pneumonia (Acute) Acute respiratory failure with hypoxia (Acute) NEL (acute kidney injury) (Acute) donor kidney transplant done in 2011 as per patient at [facility] baseline creatinine apparently around 1.7. Admitted with a creatinine of 3.9, today still at 3.6 At home she is on triple immunosuppression tacrolimus, CellCept, prednisone. cellcept is on hold due to legionella. continue tacrolimus and prednisone. will likely resume cellcept tomorrow Now diagnosed with Legionella pneumonia. Acute renal failure. Likely related to sepsis. Kidney transplant. On triple immunosuppression. renal function not improving. essentially plateaued. tacrolimus levels are pending still. today she is hemodynamically stable. since creatinine levels are still high, will transfer to main campus. called transfer line and arranged for transfer. continue tacrolimus and prednisone for now. d/w Dr Jackson
--- NOTE | 2018-01-29 14:14 | PCM.DC ---
- Discharge Diagnoses Current Active Problems: Current Active and Chronic Problems Severe sepsis (Acute) HCAP (healthcare-associated pneumonia) (Acute) Legionella pneumonia (Acute) Acute respiratory failure with hypoxia (Acute) NEL (acute kidney injury) (Acute) You will use the following diet at home:: Calorie/Carbohydrate Controlled (specify 1200, 1400, etc) - 1800 Allergies/Adverse Reactions: Allergies furosemide [From Lasix] Allergy (Verified 01/20/18 14:16) Hives Medications to take at Discharge Carvedilol [Coreg] 25 mg PO BID 01/20/18 Diphenhydramine HCl [Benadryl Allergy] 25 mg PO QODAY 01/20/18 Famotidine [Pepcid] 20 mg PO BID 01/20/18 Fluticasone 0.05% [Flonase Nasal [place]] 2 spray NASAL TID PRN PRN 01/20/18 Gabapentin [Neurontin] 300 mg PO Q12H 01/20/18 Mycophenolate Mofetil 500 mg PO BID 01/20/18 Nifedipine [Nifedipine ER] 60 mg PO BID 01/20/18 Oxycodone HCl [Roxicodone] 5 mg PO BID 01/20/18 Pravastatin [Pravachol] 40 mg PO QHS 01/20/18 Prednisone 5 mg PO DAILY 01/20/18 Tacrolimus Anhydrous [Prograf] 1 mg PO BID 01/20/18 Cyclobenzaprine [Flexeril] 10 mg PO TID PRN #10 tab 01/22/18 Insulin Detemir [Levemir] 32 unit SQ DAILY #1 vial 01/22/18 Insulin Aspart [Novolog Flexpen] 6 units SC TIDCM 01/27/18 levoFLOXacin IV [Levaquin 500mg IVPB] 500 mg IV Q48 bag 01/29/18 Primary Care Physician: Aster Martin MD [Primary Care Provider] - Test Results: Test results from this visit will be discussed in further detail at your follow-up appointment, if applicable. Proposed Discharge Date: 01/29/18
--- NOTE | 2018-01-29 14:17 | PCM.DC.SUM ---
Discharge Date and Diagnosis - Problem List Patient Problems: Active and Suspected Problems Severe sepsis (Acute) HCAP (healthcare-associated pneumonia) (Acute) Legionella pneumonia (Acute) Acute respiratory failure with hypoxia (Acute) ENL (acute kidney injury) (Acute) Date of Admission: 01/27/18 Date of Discharge: 01/29/18 - Primary Discharge Diagnosis Active and Suspected Problems Severe sepsis (Acute) HCAP (healthcare-associated pneumonia) (Acute) Legionella pneumonia (Acute) Acute respiratory failure with hypoxia (Acute) NEL (acute kidney injury) (Acute) - Secondary Discharge Diagnosis Chronic Problems Hyperglycemia due to type 1 diabetes mellitus (Chronic) Hyperglycemia without ketosis (Chronic) DM type 1 (diabetes mellitus, type 1) (Chronic) 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 01/27/18 14:40 Blood Culture (Wb) - Right Hand Blood Culture - Preliminary No growth in 48 hours. 01/28/18 14:00 Sputum, Expectorated/Coughed Gram Stain - Final 01/28/18 14:00 Sputum, Expectorated/Coughed Respiratory Culture - Preliminary Appears to be normal respiratory won. Further studies to follow. 01/27/18 15:35 Urine, Clean Catch Urine Culture - Final Culture exhibits no growth. 01/27/18 15:35 Urine, Clean Catch Legionella Antigen - Final Legionella Antigen 01/27/18 15:35 Urine, Clean Catch Streptococcus pneumoniae Antigen (M - Final Clinical Impression(s) from Imaging Studies Chest X-Ray 01/27/18 14:13 IMPRESSION: Bilateral pulmonary infiltrates. Electronically Signed: Roger Griffith MD at 15:08 EDT Tel [phone], Service support , Pelvis Ultrasound 01/28/18 11:21 IMPRESSION: 1. 7.9 cm fluid-filled cystic structure in the right hemipelvis inseparable from the right ovary and correlating to the area of question on earlier CT. This is a few centimeters away from the transplant kidney itself, but differential would still include both right ovarian cyst as well as lymphocele. 2. Two pedunculated fibroids emanating from the fundus of the uterus, as described. 3. Normal endometrial thickness. 4. Normal left ovary. Electronically Signed: Britton Brown MD at 13:50 EDT , Service support , Summary of Care Provided: Patient is a 37-year-old lady with history of diabetes mellitus type 1, history of kidney transplant with subsequent rejection presented with progressive shortness of breath imaging studies demonstrated features consistent with pneumonia admitted to the intensive care unit for subsequent management. Patient diagnostic workup consistent with Legionella pneumonia for which patient was managed with cefepime and Levaquin in view of patient kidney function not improving despite aggressive IV fluid resuscitation Dr. Cma with nephrology did recommend and I arranged for patient to be transferred to [facility] to be evaluated by transplant medicine team 1. Severe sepsis secondary to healthcare acquired pneumonia with Legionella: Patient has been admitted to intensive care unit managed per protocol with receive IV fluids, broad-spectrum antibiotic therapy initially with Zosyn, ciprofloxacin as well as vancomycin; therapy switch to cefepime and Levaquin following her urine antigen positive for Legionella. A consultation was also placed to Dr. Dalton with infectious disease: His notes and recommendations reviewed 2. Acute hypoxic respiratory failure secondary to healthcare acquired pneumonia Legionella; management as discussed above patient in addition was managed briefly on BiPAP 3. Diabetes mellitus type 1 since age 10 did continue with patient home regimen 4. Diabetic nephropathy with previous kidney transplant patient apparently had rejection and was treated with immunotherapy auscultation was placed to Dr. Cam he was notified by the ED prior to patient's admission 5. Acute on chronic kidney disease on IV fluids with monitoring of electrolyte; Consultation was placed to Dr. Cam: Subsequent management deferred 6. Diabetic retinopathy 7. Chronic kidney disease stage III with previous kidney transplant. Patient currently on Prograf as well as CellCept. Consultation was placed to Dr. Cam 8. Hypertension did continue with home meds 9. Right Lower quadrant abdominal pain patient imaging studies with CT obtained on 01/21/2018 demonstrated the presence of a centimeter by 5.9 cm x 5 4.8 cyst in the right adnexa area. Ultrasound ordered for subsequent evaluation and ultrasound demonstrated questionable ovarian cyst 11. DVT prophylaxis SC heparin Discharge Diet: 1800 Calorie Control Diet, Renal Diet Discharge Activity: Return to Normal Activity Home Medications: Medications to take at Discharge Carvedilol [Coreg] 25 mg PO BID 01/20/18 Diphenhydramine HCl [Benadryl Allergy] 25 mg PO QODAY 01/20/18 Famotidine [Pepcid] 20 mg PO BID 01/20/18 Fluticasone 0.05% [Flonase Nasal [place]] 2 spray NASAL TID PRN PRN 01/20/18 Gabapentin [Neurontin] 300 mg PO Q12H 01/20/18 Mycophenolate Mofetil 500 mg PO BID 01/20/18 Nifedipine [Nifedipine ER] 60 mg PO BID 01/20/18 Oxycodone HCl [Roxicodone] 5 mg PO BID 01/20/18 Pravastatin [Pravachol] 40 mg PO QHS 01/20/18 Prednisone 5 mg PO DAILY 01/20/18 Tacrolimus Anhydrous [Prograf] 1 mg PO BID 01/20/18 Cyclobenzaprine [Flexeril] 10 mg PO TID PRN #10 tab 01/22/18 Insulin Detemir [Levemir] 32 unit SQ DAILY #1 vial 01/22/18 Insulin Aspart [Novolog Flexpen] 6 units SC TIDCM 01/27/18 levoFLOXacin IV [Levaquin 500mg IVPB] 500 mg IV Q48 bag 01/29/18 Primary Care Physician: Aster Martin MD [Primary Care Provider] - Disposition: [facility] Minutes spent on discharge:: 45 Patient Condition:: Stable Medical Necessity - Tobacco Use Smoking Status: Former smoker Tobacco Use: Cigarettes Meaningful Use Info Meaningful Use Diagnoses (Choose all that apply): None applicable Code Visit Inpatient E&M: 34864 Disch Hosp
--- NOTE | 2018-01-29 15:15 | NURSING ---
Called transfer line, still waiting for an accepting doc at . They will call when accepted.
[2018-01-29] MEDS: Glucerna Shake 120 ML LIQUID PO (16:30)
[2018-01-29 16:51] LABS: Bedside Glucose 305 mg/dL (70-110)
--- NOTE | 2018-01-29 18:29 | NURSING ---
called Report to Philip at at this time. to call back with clam picker time.
--- NOTE | 2018-01-29 18:50 | NURSING ---
contracting support specialist time for transport to is set for 1914. called and updated.
[2018-01-31 09:58] LABS: Tacrolimus (FK506) 2.8 ng/mL (2.0-20.0)
== END 2018-01-29 19:23 | disposition short-term general hospital (02) | DRG 871 ==
LOC: ED 14:50 → ICU 19:19 → MS3 01-29 12:46
PROVIDERS: Internal Medicine Nephrology; Admitting Provider Internal Medicine; Emergency Provider Emergency Medicine; Family Provider Internal Medicine; PCP Internal Medicine; Visit Provider Internal Medicine
DX: A41.9 Sepsis, unspecified organism (principal); J96.01 Acute respiratory failure with hypoxia; A48.1 Legionnaires' disease; Z94.0 Kidney transplant status; N17.9 Acute kidney failure, unspecified; T86.11 Kidney transplant rejection; R65.20 Severe sepsis without septic shock; Z79.4 Long term (current) use of insulin; E10.319 Type 1 diabetes mellitus with unspecified diabetic 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; E10.22 Type 1 diabetes mellitus with diabetic chronic kidney disease; I12.9 Hypertensive chronic kidney disease with stage 1 through stage 4 chronic kidney disease, or unspecified chronic kidney disease; N18.3 Chronic kidney disease, stage 3 (moderate); Y95 Nosocomial condition; Z79.899 Other long term (current) drug therapy; Z87.891 Personal history of nicotine dependence; R10.31 Right lower quadrant pain
CPT/HCPCS: 36415; 36600; 71045; 76856; 80048; 80053; 80197; 81001; 82009; 82803; 82962; 83605; 84484; 85025; 85027; 85610; 85730; 87040; 87070; 87086; 87205; 87449; 87641; 93005; 94002; 94003; 94640; 94667; 97163; 97166; 99285; J7030; J7040; J7050; A4216; J0744; J3490

== ENCOUNTER → 2018-03-07 07:02 | Outpatient (CLI) | payer MEDICARE, SELFPAY ==
[2018-03-07 07:58] LABS: Absolute Lymphocyte Count 0.79 X10^3/ul (0.83-4.51); Absolute Neutrophil Count 1.8 X10^3/uL (2.0-7.7); Basophil# 0.01 X10^3/uL; Basophil% 0.3 % (0-1); Eosinophil# 0.07 X10^3/uL; Eosinophils% 2.3 % (0-5); Hematocrit 30.8 % (37-47); Hemoglobin 10.2 g/dl (12.0-15.0); Lymphocyte # 0.79 X10^3/ul (4.0); Lymphocyte % 25.9 % (19-41); Mean Corp Hgb Conc 33.1 g/gl (32-36); Mean Corpuscular Hgb 28.8 pg (27.0-32.0); Mean Platelet Vol. 11.4 fl (6.2-12.0); Monocyte# 0.34 X10^3/uL; Monocyte% 11.1 % (0-10); Neutrophil # 1.84 X10^3/uL (2.7-7.7); Neutrophil % 60.4 % (47-70); Platelet Count 191 K/mm3 (150-450); RBC Distribution Width CV 17.8 % (11.6-14.6); RBC Distribution Width SD 55.1 fl (35.1-43.9); Red Blood Count 3.54 M/mm3 (4.2-5.4); White Blood Count 3.1 K/mm3 (4.4-11.0)
[2018-03-07 07:59] LABS: Internal QC Validated? YES +Cl - CLEAR BKGD; Pregnancy, Urine Negative Negative
[2018-03-07 08:03] LABS: POSITIVE COUNT NO; POSITIVE DIFFERENTIAL NO; POSITIVE MORPHOLOGY NO
[2018-03-07 08:22] LABS: ALB/GLOB Ratio 0.8 RATIO (0.9-2.4); AST(SGOT) 10 U/L (15-37); Alanine Aminotransfer ALT/SGPT 13 U/L (13-56); Albumin, Serum 3.5 g/dL (3.2-5.0); Alkaline Phosphatase 57 U/L (45-117); Anion Gap 8 (5-15); BUN 23 mg/dL (7-18); BUN/Creat Ratio 13.5 RATIO (10-20); Calcium,Total 8.7 mg/dL (8.5-10.1); Chloride 110 mmol/L (98-107); Cholesterol 182 mg/dL (200); Creatinine, Serum 1.71 mg/dL (0.55-1.02); EST Glomerular Filtration Rate 35 mL/min (>60); Est Glom Filt Rate - Afr Amer 43 mL/min (>60); Globulin 4.2 g/dL (2.2-4.2); Glucose 81 mg/dL (74-106); High Density Lipoprotein 54 mg/dL; Potassium 4.2 mmol/L (3.5-5.1); Protein, Total 7.7 g/dL (6.4-8.2); Sodium Level 141 mmol/L (136-145); Triglycerides 97 mg/dL; Very Low Density Lipoprotein 19 mg/dL (5-40)
[2018-03-07 08:44] LABS: Microalbumin:Creatinine Ratio 694.5 mg/g CRE (<30 mg/g CRE)
[2018-03-10 13:17] LABS: Tacrolimus (FK506) 3.8 ng/mL (2.0-20.0)
== END ==
PROVIDERS: Family Provider Internal Medicine; PCP Internal Medicine; Referring Provider Internal Medicine; Visit Provider Internal Medicine
DX: A48.1 Legionnaires' disease (principal); E10.9 Type 1 diabetes mellitus without complications; E78.00 Pure hypercholesterolemia, unspecified; N28.9 Disorder of kidney and ureter, unspecified; N91.2 Amenorrhea, unspecified
CPT/HCPCS: 36415; 80053; 80061; 80197; 81025; 82043; 82570; 85025

== ENCOUNTER 2018-04-15 03:20 | Inpatient (IN) | payer MEDICARE, SELFPAY ==
[2018-04-15] VITALS (14 sets, daily range): BP systolic 115–242; BP diastolic 52–117; PULSE 67–89; RESP 16–23; TEMP 36.7–37.2; O2SAT 97–100; BMI 26.6; BMI 25.2; BMI 25.3
--- NOTE | 2018-04-15 03:37 | EKG12_ITS ---
Test Reason : GEN ILL Blood Pressure : / mmHG Vent. Rate : 086 BPM Atrial Rate : 086 BPM P-R Int : 152 ms QRS Dur : 072 ms QT Int : 394 ms P-R-T Axes : 079 -30 121 degrees QTc Int : 471 ms Normal sinus rhythm Possible Left atrial enlargement Left axis deviation Poor R wave progression Septal UT, age undetermined ST & T wave abnormality, consider lateral ischemia Prolonged QT Abnormal ECG Confirmed by DONAVON GROSSMAN, KATIA ([id number]), makeup editor ASIM BENITEZ ([id number]) on 04/15/2018 3:37:19 PM Referred By: Aster Martin Confirmed By:KATIA RAPHAEL MD
--- NOTE | 2018-04-15 03:40 | RAD_ITS ---
STUDY: X-RAY CHEST REASON FOR EXAM: Female, 37 years old. Nausea and vomiting TECHNIQUE: Single AP portable view of the chest. COMPARISON: 01/27/2018 FINDINGS: Resolution of previous right upper lobe and left perihilar parenchymal opacification. The lungs are clear and expanded. Mild blunting of the right costophrenic angle. Normal size heart. Normal mediastinum and yue. Normal visualized pulmonary arteries. Normal visualized aortic arch and descending thoracic aorta. Normal visualized thoracic spine. Normal visualized ribs, clavicles, and shoulders. There is no demonstrated abnormality of the visualized soft tissue structures of the upper abdomen. RAD/Chest 1 View (Portable) IMPRESSION: Mild right pleural effusion or pleural thickening. No pulmonary edema, congestive heart failure or confluent pneumonia. Electronically Signed: Eleni Quintanilla MD at 3:55 EST , Service support ,
[2018-04-15] MEDS: 0.9% Normal Saline 1,000 ML 999 ML IV ×2 (05:08→06:10)
[2018-04-15] MEDS: Labetalol 20 MG/4 ML Vial IV (05:09)
--- NOTE | 2018-04-15 05:10 | RAD_ITS ---
STUDY: X-RAY CHEST REASON FOR EXAM: Female, 37 years old. Central line placement TECHNIQUE: Single AP portable view of the chest. COMPARISON: 04/15/2018 0344 hours. FINDINGS: Right internal jugular venous access catheter with tip over the superior vena cava in good position. There is no demonstrated pneumothorax. The lungs are clear and expanded. There is no demonstrated pleural abnormality. Normal size heart. Normal mediastinum and yue. Normal visualized pulmonary arteries. Normal visualized aortic arch and descending thoracic aorta. Normal visualized thoracic spine. Normal visualized ribs, clavicles, and shoulders. There is no demonstrated abnormality of the visualized soft tissue structures of the upper abdomen. RAD/CXR for Line Placement IMPRESSION: Central line in good position, no pneumothorax. Previously seen mild blunting of the costophrenic angle not visualized on current exam. Electronically Signed: Eleni Quintanilla MD at 6:06 EST , Service support ,
[2018-04-15 05:25] LABS: Absolute Lymphocyte Count 0.77 X10^3/ul (0.83-4.51); Absolute Neutrophil Count 3.1 X10^3/uL (2.0-7.7); Basophil# 0.02 X10^3/uL; Basophil% 0.5 % (0-1); Eosinophil# 0.02 X10^3/uL; Eosinophils% 0.5 % (0-5); Hemoglobin 14.1 g/dl (12.0-15.0); Lymphocyte # 0.77 X10^3/ul (4.0); Lymphocyte % 17.7 % (19-41); Mean Corp Hgb Conc 35.3 g/gl (32-36); Mean Corpuscular Hgb 29.1 pg (27.0-32.0); Mean Corpuscular Volume 82.5 fL (81-99); Mean Platelet Vol. 12.2 fl (6.2-12.0); Monocyte# 0.42 X10^3/uL; Monocyte% 9.6 % (0-10); Neutrophil # 3.12 X10^3/uL (2.7-7.7); Neutrophil % 71.5 % (47-70); POSITIVE COUNT NO; POSITIVE DIFFERENTIAL NO; POSITIVE MORPHOLOGY NO; Platelet Count 146 K/mm3 (150-450); RBC Distribution Width CV 14.8 % (11.6-14.6); RBC Distribution Width SD 43.8 fl (35.1-43.9); Red Blood Count 4.85 M/mm3 (4.2-5.4); White Blood Count 4.4 K/mm3 (4.4-11.0)
[2018-04-15 05:29] LABS: International Normalized Ratio 1.1; Prothrombin Time (Protime)PT. 13.9 SECONDS (11.7-14.9)
[2018-04-15 05:30] LABS: Partial Thromboplast Time 24.9 Seconds (24.1-36.2)
[2018-04-15] MEDS: Ondansetron 4 MG/2 ML Vial IV (05:31)
[2018-04-15] MEDS: Morphine 4 MG/ML Syringe IV (05:32)
[2018-04-15 05:42] LABS: ALB/GLOB Ratio 0.9 RATIO (0.9-2.4); AST(SGOT) 16 U/L (15-37); Alanine Aminotransfer ALT/SGPT 14 U/L (13-56); Albumin, Serum 3.5 g/dL (3.2-5.0); Alkaline Phosphatase 54 U/L (45-117); Anion Gap 15 (5-15); BUN 75 mg/dL (7-18); BUN/Creat Ratio 15.5 RATIO (10-20); Calcium,Total 9.2 mg/dL (8.5-10.1); Chloride 104 mmol/L (98-107); Creatinine, Serum 4.84 mg/dL (0.55-1.02); EST Glomerular Filtration Rate 11 mL/min (>60); Est Glom Filt Rate - Afr Amer 13 mL/min (>60); Estimated Creatinine Clearance 14.61 ml/min; Globulin 4.1 g/dL (2.2-4.2); Glucose 199 mg/dL (74-106); Lipase 77 U/L (73-393); Potassium 4.4 mmol/L (3.5-5.1); Protein, Total 7.6 g/dL (6.4-8.2); Sodium Level 137 mmol/L (136-145)
[2018-04-15 05:50] LABS: Lactic Acid 0.8 mmol/L (0.4-2.0)
[2018-04-15 05:54] LABS: Pregnancy, Serum, hCG Quali. NEGATIVE Negative (0-9 Nonpreg)
--- NOTE | 2018-04-15 06:19 | ED.DCSUM_ITS ---
- ER Visit Summary Date of Service: 04/15/18 Chief Complaint: Nausea vomiting and diarrhea History of Present Illness: The patient is a 37 F who complains of nausea vomiting and diarrhea for the past 5-6 days. She complains of generalized weakness. She has had multiple episodes of nonbloody nonbilious emesis and stools. She denies any hematochezia or melena. No fevers chest pain shortness of breath rashes. She does have a history of insulin-dependent diabetes hypertension chronic kidney disease, renal transplant. She states she did have a reading of blood sugar 400 but overall it is been well controlled and her most recent blood sugar check was about 200. Physical Examination: Initial blood pressure 242/117 vitals otherwise normal Moist mucous membranes Heart regular rate and rhythm Lungs are clear Abdomen soft nondistended she does have some diffuse tenderness which is nonfocal no guarding no rebound laparotomy scars noted Alert Cooperative Test Results: EKG shows sinus rhythm at a rate of 86. She does have lateral ST depression and T wave inversions although this appears similar to prior EKG. CBC unremarkable. Chemistries notable for BUN of 75, creatinine 4.84. Hepatic function lipase lactic acid all normal. Troponin elevated at 0.198. negative. Chest x-ray shows mild right effusion or pleural thickening no edema no CHF. Repeat chest x-ray shows a central line to be in good position without pneumothorax. Emergency Department Course and Treatment: Patient was seen shortly after arrival. There was difficulty establishing peripheral IV access. Multiple nursing attempts were made. I also attempted x1 under ultrasound guidance and was unsuccessful. Therefore risks and benefits of central venous catheterization were discussed with the patient including risks of bleeding, infection, pneumothorax. After informed consent of the patient underwent central venous catheterization without any immediate complications. Right IJ was checked with ultrasound prior to procedure. Even when being placed in Trendelenburg she has essentially complete collapse with respiration. Patient was locally anesthetized with 1% lidocaine. Dark red nonpulsatile blood was obtained on first stick. CVC placed under sterile conditions without any apparent immediate complication and postprocedure x-ray shows it to be in good position without pneumothorax. Lab work notable as above for elevation of BUN at 75, creatinine 4.84. Patient notes that her baseline creatinine should be around 2.5. I do believe her acute kidney injury is most likely prerenal related to dehydration. This is also supported by IJ collapse. She was given 2 L of normal saline. She does not have evidence of bacterial infection at this time. She has no leukocytosis fever tachycardia. Her lactic acid is normal. Her troponin is elevated but this is likely related to renal dysfunction. She has no chest pain or shortness of breath. Although she has ischemic changes on her EKG this appears similar to prior. I spoke to nephrology on-call who agreed the patient to be kept here and hydrated and would only require transfer to a transplant center if her creatinine does not improve as expected. I spoke to Dr. Foss the hospitalist and patient will be admitted to PCU. Treatment Plan: [] Disposition: Admit Impression: Acute kidney injury Vomiting Diarrhea Central venous catheter placement This note was generated with [employer] dictation software. It may contain incorrect words, spelling, and punctuation that were not noted in review of the chart prior to signing ED Disposition - Plan for ED Patient: Chief Complaint: Nausea/Vomiting/Diarrhea Referrals: Aster Martin MD [Primary Care Provider] -
--- NOTE | 2018-04-15 06:23 | PCM.HP.STD ---
Problem List (1) History of chronic pancreatitis Status: Chronic (2) Kidney disease Status: Chronic (3) High cholesterol Status: Chronic (4) High blood pressure Status: Chronic (5) Diabetes Status: Chronic (6) NEL (acute kidney injury) Status: Acute History of Present Illness Date of Admission: 04/15/18 Chief Complaint: generalized weakness, dehydration The patient is a 37 year old female with a past medical history of type one diabetes who is a kidney transplant recipient presents to the ER with the complaint of generalized weakness with nausea and vomiting. She had been hospitalized recently for legionella pneumonia and sepsis as well. On of last week she states she went to a restaurant and ate chilli there. Soon after, about an hour or so, she felt toxic and began throwing up from evening through till morning. She then rested at home but did not tolerate PO. On Saturday she slept most of the day and again drank or ate very little. On Saturday she was very lighted headed and dizzy and continued feeling nauseated. Her abdomen is sore. She denies chest pain at present. Her creatine is markedly elevated and troponin slightly elevated. She will be admitted to PCU for rehydration and further monitoring. EKG is abnormal but unchanged from EKG in January. 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) Medical History: Medical History (Last Reviewed 04/07/18 @ 13:41 by Reina Perez) Legionnaires' disease (Chronic) A48.1 History of chronic pancreatitis (Chronic) Z87.19 Neuropathy (Chronic) G62.9 Kidney disease (Chronic) N28.9 High cholesterol (Chronic) E78.00 High blood pressure (Chronic) I10 Diabetes (Chronic) E11.9 Chronic bronchitis (Chronic) J42 Cataracts, bilateral (Chronic) H26.9 Anemia (Chronic) D64.9 Seasonal allergies (Chronic) J30.2 Allergies furosemide [From Lasix] Allergy (Verified 04/15/18 03:21) Hives Home Medications: Ambulatory Orders Medication Instructions Recorded Carvedilol [Coreg] 25 mg PO BID 01/20/18 Fluticasone 0.05% [Flonase Nasal 2 spray NASAL TID PRN PRN 01/20/18 [place]] Gabapentin [Neurontin] 300 mg PO Q12H 01/20/18 Mycophenolate Mofetil 500 mg PO BID 01/20/18 Nifedipine [Nifedipine ER] 60 mg PO BID 01/20/18 Oxycodone HCl [Roxicodone] 5 mg PO BID 01/20/18 Pravastatin [Pravachol] 40 mg PO QHS 01/20/18 Prednisone 5 mg PO DAILY 01/20/18 Tacrolimus Anhydrous [Prograf] 3 mg PO BID 01/20/18 Cyclobenzaprine [Flexeril] 10 mg PO TID PRN #10 tab 01/22/18 Insulin Detemir [Levemir] 32 unit SQ DAILY #1 vial 01/22/18 Insulin Aspart [Novolog Flexpen] 6 units SUBCUT TIDCM 01/27/18 diphenhydramine 25 mg tablet 25 mg PO DAILY PRN PRN 03/04/18 famotidine 20 mg tablet 20 mg PO BID PRN 03/04/18 zolpidem 10 mg tablet 10 mg PO QHS PRN 03/04/18 Surgical History: Surgical History (Last Reviewed 04/07/18 @ 13:41 by Reina Perez) History of amputation of toe Z89.429 History of eye surgery Z98.890 Retina History of kidney transplant Z94.0 2011 Surgical History: appendectomy, - - Status post kidney transplant, poor wound debridement, diverting sigmoid colostomy on 07/06/2017, reversed on 07/07/2017, percutaneous tracheostomy, no longer has, left TMA Smoking Status: Former smoker - *Family History Maternal Family History: Family History (Last Reviewed 04/07/18 @ 13:41 by Reina Perez) Mother Asthma Hypertension Father Myocardial infarction History Items: Diabetes, Hypertension Paternal Family History: Family History (Last Reviewed 04/07/18 @ 13:41 by Reina Perez) Mother Asthma Hypertension Father Myocardial infarction History Items: No pertinent history Review of Systems Constitutional: Reports: Malaise, Weakness, Fatigue. Denies: Chills, Fever, Weight Change HEENT: Denies: Head Aches, Sinus Congestion, Sinus Drainage Cardiovascular: Denies: Chest Pain, Palpitations Respiratory: Denies: Cough, Shortness of breath at rest, Sputum production Gastrointestinal: Reports: Abdominal Pain, Nausea, Vomiting Genitourinary: Denies: Dysuria Musculoskeletal: Denies: Joint Pain, Joint Tenderness Skin: Denies: Rash, Wounds Neurological: Denies: Numbness, Tingling, Focal weakness Psychiatric: Denies: Anxiety, Depression, Homicidal Ideations, Suicidal Ideations Hematologic/ Lymphatic: Denies: Easy Bruising, Easy Bleeding VTE Information - Inpt Only VTE Present on Admission: No VTE Mechan Device Prophylaxis: SCD's VTE Pharm Prophylaxis ordered?: No Reason prophylaxis not ordered:: Medical Contraindication - Physical Exam General: Alert, Oriented x3, Cooperative HEENT: Atraumatic, Normocephalic Neck: Supple, Negative Carotid Bruits Lungs: Clear to auscultation, Normal air movement Cardiovascular: Regular rate, Normal S1, Normal S2, No murmurs Abdomen: Bowel Sounds Present, Soft, Tender - diffuse tenderness Extremities: No edema, Capillary Refill Less than 3 Seconds Skin: No rashes Musculoskeletal: No Tenderness to Palpation of Joints or Extremities Neurological: Neuro grossly intact Psych/Mental Status: Normal Affect, Appropriate Vital Signs Temp Pulse Resp BP Pulse Ox 99.0 F 80 16 209/87 H 100 04/15/18 05:15 04/15/18 05:11 04/15/18 05:11 04/15/18 05:11 04/15/18 05:15 Oxygen Delivery Method Room Air Weight: 164 lb 14.492 oz Body Mass Index (BMI) 26.6 Finger Stick Blood Glucose 176 Laboratory Tests Past 24 Hrs 04/15/18 04/15/18 04/15/18 05:05 05:05 05:05 WBC 4.4 RBC 4.85 Hgb 14.1 Hct 40.0 MCV 82.5 MCH 29.1 MCHC 35.3 RDW 14.8 H RDW Differential 43.8 Plt Count 146 L MPV 12.2 H Immature Gran % (Auto) 0.200 Neut % (Auto) 71.5 H Lymph % (Auto) 17.7 L Branch % (Auto) 9.6 Eos % (Auto) 0.5 Baso % (Auto) 0.5 Absolute Neuts (auto) 3.1 Absolute Lymphs (auto) 0.77 L Total Counted Not Reportable PT 13.9 INR 1.1 APTT 24.9 Sodium 137 Potassium 4.4 Chloride 104 Carbon Dioxide 18.0 L Anion Gap 15 BUN 75 H Creatinine 4.84 H Estim Creat Clear Calc 14.61 Est GFR (MDRD) Af Amer 13 L Est GFR (MDRD) Non-Af 11 L BUN/Creatinine Ratio 15.5 Glucose 199 H Lactic Acid Calcium 9.2 Total Bilirubin 0.60 AST 16 ALT 14 Alkaline Phosphatase 54 Troponin I 0.198 H Total Protein 7.6 Albumin 3.5 Globulin 4.1 Albumin/Globulin Ratio 0.9 Lipase 77 Serum , Qual 04/15/18 04/15/18 05:05 05:05 WBC RBC Hgb Hct MCV MCH MCHC RDW RDW Differential Plt Count MPV Immature Gran % (Auto) Neut % (Auto) Lymph % (Auto) Branch % (Auto) Eos % (Auto) Baso % (Auto) Absolute Neuts (auto) Absolute Lymphs (auto) Total Counted PT INR APTT Sodium Potassium Chloride Carbon Dioxide Anion Gap BUN Creatinine Estim Creat Clear Calc Est GFR (MDRD) Af Amer Est GFR (MDRD) Non-Af BUN/Creatinine Ratio Glucose Lactic Acid 0.8 Calcium Total Bilirubin AST ALT Alkaline Phosphatase Troponin I Total Protein Albumin Globulin Albumin/Globulin Ratio Lipase Serum , Qual NEGATIVE Assessment/Plan All Active Problems (Last Reviewed 04/07/18 @ 13:41 by Reina Perez) Sinusitis (Acute) Amenorrhea (Acute) Severe sepsis (Acute) HCAP (healthcare-associated pneumonia) (Acute) Legionella pneumonia (Acute) Acute respiratory failure with hypoxia (Acute) NEL (acute kidney injury) (Acute) Assessment - Acute kidney injury, dehydration secondary to food poisoning (anticipate pre renal) - elevated troponin Plan - admit to PCU - hydration with normal saline - monitor renal function with BMP in am - cycle cardiac markers - hydralazine 20mg IV q 6hrs prn bp >160/100 - initiate sliding scale insulin, start with 1/2 routine basal insulin due to poor po intake status - in afternoon perhaps start liquid diet and advance as tolerated. - zofran prn for nausea - tylenol prn for discomfort (I do not feel narcotics are justified at this time for her diffuse abdominal tenderness) - SCDs for dvt prophylaxis Code Visit Inpatient E&M: 49022 Init Hosp L3
--- NOTE | 2018-04-15 06:45 | NURSING ---
123 ANTONIA NEL, ELEVATED TROP, VOMITING
[2018-04-15] MEDS: 0.9% Normal Saline 1,000 ML 150 ML IV ×3 (07:40→20:56)
[2018-04-15] MEDS: oxyCODONE 5 MG Tablet PO ×2 (09:29→21:00)
[2018-04-15] MEDS: Gabapentin 300 MG Capsule PO (09:30)
[2018-04-15] MEDS: predniSONE 5 MG Tablet PO (09:30)
[2018-04-15] MEDS: Mycophenolate Mofetil 250 MG Capsule 500 MG PO ×2 (09:30→22:39)
[2018-04-15] MEDS: Carvedilol 25 MG Tablet PO ×2 (09:30→22:39)
[2018-04-15] MEDS: NIFEdipine 60 MG Tablet PO ×2 (09:30→22:40)
--- NOTE | 2018-04-15 10:55 | PCM.HOSP.N ---
Hospitalist Note Patient was seen and briefly examined today, she was admitted early this morning with acute kidney injury, I talked briefly with nephrology today who is seeing her in consultation, the plan is that we will continue to give her fluids for now and recheck her labs, blood sugars will be monitored and insulin will be given per protocol and she will continue on her home insulin. The etiology of her acute kidney injury is unknown at this time it may be due to ATN or volume depletion.
--- NOTE | 2018-04-15 11:11 | CASEMGMT ---
TERRI PINZON assessment: \Face to Face with patient for initial transition planning/care coordination assessment. TERRI PINZON introduced self and role at [facility], pt voices understanding and consents to assessment at this time. Pt is lying in bed in no distress at this time. Pt is A/Ox4 at this time and answers all questions appropriately at this time. Care providers, pharmacy, and demographics verified at this time. PCP: Veronica Specialists: Pt states has the following speciality physicians but is unsure of names: endocrinology, nephrology, opthamology, and podiatry. Preferred Pharmacy: [facility] [place] Insurance: [facility] A/B Prescription Benefit: MCR D Living Will/HPOA: Pt states does not currently have LW/HPOA but does have info at home and plans on completing on own. LNOK: Inder Aryan maribell; Jenniferjuliet Deleon, Living Arrangements: Pt states lives with maribell in apartment with 4 steps into back of apt. Pt states that she does not leave apt by herself d/t inability to do stairs on her own. Pt states has applied for housing and it will be all on one level. Pt states can accomplish ADL's on own. Transportation: Pt states fiance drives and states no transportation concerns at this time. DME/HHC: Pt states has the following DME: shower chair, cane, walker, and w/c. Pt states has been to SNF and had HHC but that was when she lived in [place] s/p brown recluse bite with necrotizing fasciitis. Pt states no concerns with going home at time of discharge. Pt states does not smoke or drink ETOH. Pt states no further concerns/needs at this time. CM to follow for any further discharge planning/needs. Advised pt to ask for CM if any further questions/concerns/needs arise, voices understanding. Plan: [place] TERRI PINZON
[2018-04-15] MEDS: Tacrolimus Anhydrous 1 MG Capsule 3 MG PO (11:23)
[2018-04-15 11:31] LABS: Bedside Glucose 186 mg/dL (70-110)
--- NOTE | 2018-04-15 11:31 | PCM.CONS.R ---
Problem List (1) Acute kidney injury superimposed on chronic kidney disease Status: Chronic (2) Renal transplant recipient Status: Acute Consultation - Renal PCP/ Referring MD: Requesting physician: [] Primary care physician: Aster Martin MD - History of Present Illness History of Present Illness: The patient is a 37 year old F with a past medical history of dysphagia disease from diabetic nephropathy.atient is status post donor transplant in 2008 at [facility], [place], [facility]. Patient has chronic kidney disease from CNI. baseline creatinine around 1.7 mg/dL. patient is taking CellCept 500 mg twice a day, Prograf 3 mg twice a day, and prednisone 5 mg by mouth daily. Patient presented with complain of 5 days history of nausea vomiting. Patient also started to have diarrhea a day before admission. Renal team was consulted for acute kidney injury. Creatinine is up to 4.8 milligrams per deciliter. Pt is currently on IVF NS at 150 cc/hour. Pt said Zofran has helped nausea / vomiting ROS : 12 systems review is negative except what mentioned in HPI - Allergies Allergies: Allergies furosemide [From Lasix] Allergy (Verified 04/15/18 03:21) Hives - Current Medications Current Medications: Current Medications Carvedilol (Coreg) 25 mg PO BID [facility] Last Admin: 04/15/18 09:30 Dose: 25 mg Dextrose (D50w Syringe) 0 gm IV X1 PRN; Protocol PRN Reason: Hypoglycemia Famotidine (Pepcid) 20 mg PO DAILY PRN PRN Reason: INDESTION Fluticasone Propionate (Flonase Nasal [place]) 2 spray NASAL TID PRN PRN PRN Reason: ALLERGIES Gabapentin (Neurontin) 300 mg PO Q12H [facility] Last Admin: 04/15/18 09:30 Dose: 300 mg Glucagon () 1 mg IM .X1 PRN PRN Reason: Hypoglycemia Hydralazine HCl (Apresoline Iv) 20 mg IV Q6H PRN PRN PRN Reason: Hypertensive Emergency Sodium Chloride () 1,000 mls @ 150 mls/hr IV .Q6H40M [facility] Last Admin: 04/15/18 07:40 Dose: 150 mls/hr Insulin Glargine (Lantus (Bkc)) 30 units SC QHS [facility]NA MARIA Insulin Human Lispro (Humalog Kwikpen (Bkc)) 0 unit SC ACHS ANA MARIA; Protocol Magnesium Hydroxide (Milk Of Magnesia) 30 ml PO DAILY PRN PRN Reason: Constipation Mycophenolate Mofetil (Cellcept) 500 mg PO BID [facility] Last Admin: 04/15/18 09:30 Dose: 500 mg Nifedipine (Procardia Xl) 60 mg PO BID [facility] Last Admin: 04/15/18 09:30 Dose: 60 mg Nitroglycerin (Nitrostat) 0.4 mg SUBLINGUAL Q5M PRN PRN Reason: CHEST PAIN Nutritional Formula (Lactose Free) (Ensure Clear) 120 ml PO 4X/DAY [facility] Last Admin: 04/15/18 09:44 Dose: Not Given Ondansetron HCl (Zofran) 4 mg IV Q6H PRN PRN PRN Reason: NAUSEA Oxycodone HCl (Oxyir) 5 mg PO BID [facility] Last Admin: 04/15/18 09:29 Dose: 5 mg Pravastatin Sodium (Pravachol) 40 mg PO QHS [facility] Prednisone () 5 mg PO DAILY@0800 [facility] Last Admin: 04/15/18 09:30 Dose: 5 mg Sodium Chloride () 5 - 30 ml IV UD PRN PRN Reason: SALINE FLUSH Tacrolimus (Prograf) 3 mg PO BID [facility] Zolpidem Tartrate (Ambien (Generic)) 5 mg PO QHS PRN PRN Reason: SLEEP - Past Medical History Past Medical History (Chronic Problems): Chronic Problems (Last Reviewed 04/07/18 @ 13:41 by Reina Perez) Acute kidney injury superimposed on chronic kidney disease (Chronic) Legionnaires' disease (Chronic) History of chronic pancreatitis (Chronic) Neuropathy (Chronic) Kidney disease (Chronic) High cholesterol (Chronic) High blood pressure (Chronic) Diabetes (Chronic) Chronic bronchitis (Chronic) Cataracts, bilateral (Chronic) Anemia (Chronic) Seasonal allergies (Chronic) Hyperglycemia due to type 1 diabetes mellitus (Chronic) Hyperglycemia without ketosis (Chronic) DM type 1 (diabetes mellitus, type 1) (Chronic) 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) - Past Surgical History Surgical History: appendectomy, - - Status post kidney transplant, poor wound debridement, diverting sigmoid colostomy on 07/06/2017, reversed on 07/07/2017, percutaneous tracheostomy, no longer has, left TMA - Social History Smoking Status: Former smoker - Family History Maternal Family History: Family History (Last Reviewed 04/07/18 @ 13:41 by Reina Perez) Mother Asthma Hypertension Father Myocardial infarction History Items: Diabetes, Hypertension Paternal Family History: Family History (Last Reviewed 04/07/18 @ 13:41 by Reina Perez) Mother Asthma Hypertension Father Myocardial infarction History Items: No pertinent history Patient Problems: Active and Suspected Problems (Last Reviewed 04/07/18 @ 13:41 by Reina Perez) Renal transplant recipient (Acute) - Physical Exam General: Alert, Oriented x3 Oral: Dry Mucosa Neck: Supple, No JVD Lungs: Clear to auscultation, Normal air movement, No rhonchi, No wheeze Cardiovascular: Regular rate, Regular Rhythm, Normal S1, Normal S2 Abdomen: Bowel Sounds Present, Soft, Non Tender Extremities: No clubbing, No cyanosis, No edema Skin: No rashes Musculoskeletal: No Tenderness to Palpation of Joints or Extremities Lymphatic: No Cervical, Supraclavicular, or Inguinal Adenopathy Neurological: Cranial nerves II-XII grossly intact, Neuro grossly intact Vital Signs Temp Pulse Resp BP Pulse Ox 98.3 F 82 18 163/75 H 99 04/15/18 06:54 04/15/18 07:34 04/15/18 06:54 04/15/18 06:54 04/15/18 06:54 Oxygen Delivery Method Room Air Weight: 71.4 kg Body Mass Index (BMI) 25.2 Finger Stick Blood Glucose 176 Laboratory Tests Past 24 Hrs 04/15/18 04/15/18 04/15/18 05:05 05:05 05:05 WBC 4.4 RBC 4.85 Hgb 14.1 Hct 40.0 MCV 82.5 MCH 29.1 MCHC 35.3 RDW 14.8 H RDW Differential 43.8 Plt Count 146 L MPV 12.2 H Immature Gran % (Auto) 0.200 Neut % (Auto) 71.5 H Lymph % (Auto) 17.7 L [place] % (Auto) 9.6 Eos % (Auto) 0.5 Baso % (Auto) 0.5 Absolute Neuts (auto) 3.1 Absolute Lymphs (auto) 0.77 L Total Counted Not Reportable PT 13.9 INR 1.1 APTT 24.9 Sodium 137 Potassium 4.4 Chloride 104 Carbon Dioxide 18.0 L Anion Gap 15 BUN 75 H Creatinine 4.84 H Estim Creat Clear Calc 14.61 Est GFR (MDRD) Af Amer 13 L Est GFR (MDRD) Non-Af 11 L BUN/Creatinine Ratio 15.5 Glucose 199 H Lactic Acid Calcium 9.2 Total Bilirubin 0.60 AST 16 ALT 14 Alkaline Phosphatase 54 Troponin I 0.198 H Total Protein 7.6 Albumin 3.5 Globulin 4.1 Albumin/Globulin Ratio 0.9 Lipase 77 Serum , Qual Tacrolimus 04/15/18 04/15/18 04/15/18 05:05 05:05 05:05 WBC RBC Hgb Hct MCV MCH MCHC RDW RDW Differential Plt Count MPV Immature Gran % (Auto) Neut % (Auto) Lymph % (Auto) [place] % (Auto) Eos % (Auto) Baso % (Auto) Absolute Neuts (auto) Absolute Lymphs (auto) Total Counted PT INR APTT Sodium Potassium Chloride Carbon Dioxide Anion Gap BUN Creatinine Estim Creat Clear Calc Est GFR (MDRD) Af Amer Est GFR (MDRD) Non-Af BUN/Creatinine Ratio Glucose Lactic Acid 0.8 Calcium Total Bilirubin AST ALT Alkaline Phosphatase Troponin I Total Protein Albumin Globulin Albumin/Globulin Ratio Lipase Serum , Qual NEGATIVE Tacrolimus Pending 04/15/18 04/15/18 07:40 11:05 WBC RBC Hgb Hct MCV MCH MCHC RDW RDW Differential Plt Count MPV Immature Gran % (Auto) Neut % (Auto) Lymph % (Auto) [place] % (Auto) Eos % (Auto) Baso % (Auto) Absolute Neuts (auto) Absolute Lymphs (auto) Total Counted PT INR APTT Sodium Potassium Chloride Carbon Dioxide Anion Gap BUN Creatinine Estim Creat Clear Calc Est GFR (MDRD) Af Amer Est GFR (MDRD) Non-Af BUN/Creatinine Ratio Glucose Lactic Acid Calcium Total Bilirubin AST ALT Alkaline Phosphatase Troponin I 0.350 H Pending Total Protein Albumin Globulin Albumin/Globulin Ratio Lipase Serum , Qual Tacrolimus Assessment/Plan All Active Problems (Last Reviewed 04/07/18 @ 13:41 by Reina Perez) Renal transplant recipient (Acute) Sinusitis (Acute) Amenorrhea (Acute) Severe sepsis (Acute) HCAP (healthcare-associated pneumonia) (Acute) Legionella pneumonia (Acute) Acute respiratory failure with hypoxia (Acute) NEL (acute kidney injury) (Acute) 1- NEL on CKD: CKD is from CNI Baseline Cr is around 1.7 mg/dL. Pt had recent NEL in January possible from ATN related to pneumonia. Cr improved to baseline Now Cr is up to 4.8 mg/dL. most probably related to prerenal from dehydration. I agree with volume expansion with IV NS for now Less likely due to acute rejection. No tenderness over the transplanted kidney. Pt has been taking amanda IS medications I will check UA along urine electrolytes Avoid ACEI/ARB Check renal function in am 2- ESRD s/p DDKT in 2008 at [facility], [place], [facility] Will continue the same IS of Cellcept 500 BID, prograf 3 mg PO BID and prednisone Will check prograf trough level Renal team will continue to follow Thank you for the consult D/W Dr. Sarath MCCONNELL MD
--- NOTE | 2018-04-15 11:39 | CON.PCM_ITS ---
Problem List (1) Acute kidney injury superimposed on chronic kidney disease Status: Chronic (2) Renal transplant recipient Status: Acute Consultation - Renal PCP/ Referring MD: Requesting physician: [] Primary care physician: Aster Martin MD - History of Present Illness History of Present Illness: The patient is a 37 year old F with a past medical history of dysphagia disease from diabetic nephropathy.atient is status post donor transplant in 2008 at [facility]. Patient has chronic kidney disease from CNI. baseline creatinine around 1.7 mg/dL. patient is taking CellCept 500 mg twice a day, Prograf 3 mg twice a day, and prednisone 5 mg by mouth daily. Patient presented with complain of 5 days history of nausea vomiting. Patient also started to have diarrhea a day before admission. Renal team was consulted for acute kidney injury. Creatinine is up to 4.8 milligrams per deciliter. Pt is currently on IVF NS at 150 cc/hour. Pt said Zofran has helped nausea / vomiting ROS : 12 systems review is negative except what mentioned in HPI - Allergies Allergies: Allergies furosemide [From Lasix] Allergy (Verified 04/15/18 03:21) Hives - Current Medications Current Medications: Current Medications Carvedilol (Coreg) 25 mg PO BID [facility] Last Admin: 04/15/18 09:30 Dose: 25 mg Dextrose (D50w Syringe) 0 gm IV X1 PRN; Protocol PRN Reason: Hypoglycemia Famotidine (Pepcid) 20 mg PO DAILY PRN PRN Reason: INDESTION Fluticasone Propionate (Flonase Nasal [place]) 2 spray NASAL TID PRN PRN PRN Reason: ALLERGIES Gabapentin (Neurontin) 300 mg PO Q12H [facility] Last Admin: 04/15/18 09:30 Dose: 300 mg Glucagon () 1 mg IM .X1 PRN PRN Reason: Hypoglycemia Hydralazine HCl (Apresoline Iv) 20 mg IV Q6H PRN PRN PRN Reason: Hypertensive Emergency Sodium Chloride () 1,000 mls @ 150 mls/hr IV .Q6H40M [facility] Last Admin: 04/15/18 07:40 Dose: 150 mls/hr Insulin Glargine (Lantus (Bkc)) 30 units SC QHS [facility] Insulin Human Lispro (Humalog Kwikpen (Bkc)) 0 unit SC ACHS ANA [facility]IA; Protocol Magnesium Hydroxide (Milk Of Magnesia) 30 ml PO DAILY PRN PRN Reason: Constipation Mycophenolate Mofetil (Cellcept) 500 mg PO BID [facility] Last Admin: 04/15/18 09:30 Dose: 500 mg Nifedipine (Procardia Xl) 60 mg PO BID [facility] Last Admin: 04/15/18 09:30 Dose: 60 mg Nitroglycerin (Nitrostat) 0.4 mg SUBLINGUAL Q5M PRN PRN Reason: CHEST PAIN Nutritional Formula (Lactose Free) (Ensure Clear) 120 ml PO 4X/DAY [facility] Last Admin: 04/15/18 09:44 Dose: Not Given Ondansetron HCl (Zofran) 4 mg IV Q6H PRN PRN PRN Reason: NAUSEA Oxycodone HCl (Oxyir) 5 mg PO BID [facility] Last Admin: 04/15/18 09:29 Dose: 5 mg Pravastatin Sodium (Pravachol) 40 mg PO QHS [facility] Prednisone () 5 mg PO DAILY@0800 [facility] Last Admin: 04/15/18 09:30 Dose: 5 mg Sodium Chloride () 5 - 30 ml IV UD PRN PRN Reason: SALINE FLUSH Tacrolimus (Prograf) 3 mg PO BID [facility] Zolpidem Tartrate (Ambien (Generic)) 5 mg PO QHS PRN PRN Reason: SLEEP - Past Medical History Past Medical History (Chronic Problems): Chronic Problems (Last Reviewed 04/07/18 @ 13:41 by Reina Perez) Acute kidney injury superimposed on chronic kidney disease (Chronic) Legionnaires' disease (Chronic) History of chronic pancreatitis (Chronic) Neuropathy (Chronic) Kidney disease (Chronic) High cholesterol (Chronic) High blood pressure (Chronic) Diabetes (Chronic) Chronic bronchitis (Chronic) Cataracts, bilateral (Chronic) Anemia (Chronic) Seasonal allergies (Chronic) Hyperglycemia due to type 1 diabetes mellitus (Chronic) Hyperglycemia without ketosis (Chronic) DM type 1 (diabetes mellitus, type 1) (Chronic) 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) - Past Surgical History Surgical History: appendectomy, - - Status post kidney transplant, poor wound debridement, diverting sigmoid colostomy on 07/06/2017, reversed on 07/07/2017, percutaneous tracheostomy, no longer has, left TMA - Social History Smoking Status: Former smoker - Family History Maternal Family History: Family History (Last Reviewed 04/07/18 @ 13:41 by Reina Perez) Mother Asthma Hypertension Father Myocardial infarction History Items: Diabetes, Hypertension Paternal Family History: Family History (Last Reviewed 04/07/18 @ 13:41 by Reina Perez) Mother Asthma Hypertension Father Myocardial infarction History Items: No pertinent history Patient Problems: Active and Suspected Problems (Last Reviewed 04/07/18 @ 13:41 by Reina Perez) Renal transplant recipient (Acute) - Physical Exam General: Alert, Oriented x3 Oral: Dry Mucosa Neck: Supple, No JVD Lungs: Clear to auscultation, Normal air movement, No rhonchi, No wheeze Cardiovascular: Regular rate, Regular Rhythm, Normal S1, Normal S2 Abdomen: Bowel Sounds Present, Soft, Non Tender Extremities: No clubbing, No cyanosis, No edema Skin: No rashes Musculoskeletal: No Tenderness to Palpation of Joints or Extremities Lymphatic: No Cervical, Supraclavicular, or Inguinal Adenopathy Neurological: Cranial nerves II-XII grossly intact, Neuro grossly intact Vital Signs Temp Pulse Resp BP Pulse Ox 98.3 F 82 18 163/75 H 99 04/15/18 06:54 04/15/18 07:34 04/15/18 06:54 04/15/18 06:54 04/15/18 06:54 Oxygen Delivery Method Room Air Weight: 71.4 kg Body Mass Index (BMI) 25.2 Finger Stick Blood Glucose 176 Laboratory Tests Past 24 Hrs 04/15/18 04/15/18 04/15/18 05:05 05:05 05:05 WBC 4.4 RBC 4.85 Hgb 14.1 Hct 40.0 MCV 82.5 MCH 29.1 MCHC 35.3 RDW 14.8 H RDW Differential 43.8 Plt Count 146 L MPV 12.2 H Immature Gran % (Auto) 0.200 Neut % (Auto) 71.5 H Lymph % (Auto) 17.7 L [place] % (Auto) 9.6 Eos % (Auto) 0.5 Baso % (Auto) 0.5 Absolute Neuts (auto) 3.1 Absolute Lymphs (auto) 0.77 L Total Counted Not Reportable PT 13.9 INR 1.1 APTT 24.9 Sodium 137 Potassium 4.4 Chloride 104 Carbon Dioxide 18.0 L Anion Gap 15 BUN 75 H Creatinine 4.84 H Estim Creat Clear Calc 14.61 Est GFR (MDRD) Af Amer 13 L Est GFR (MDRD) Non-Af 11 L BUN/Creatinine Ratio 15.5 Glucose 199 H Lactic Acid Calcium 9.2 Total Bilirubin 0.60 AST 16 ALT 14 Alkaline Phosphatase 54 Troponin I 0.198 H Total Protein 7.6 Albumin 3.5 Globulin 4.1 Albumin/Globulin Ratio 0.9 Lipase 77 Serum , Qual Tacrolimus 04/15/18 04/15/18 04/15/18 05:05 05:05 05:05 WBC RBC Hgb Hct MCV MCH MCHC RDW RDW Differential Plt Count MPV Immature Gran % (Auto) Neut % (Auto) Lymph % (Auto) [place] % (Auto) Eos % (Auto) Baso % (Auto) Absolute Neuts (auto) Absolute Lymphs (auto) Total Counted PT INR APTT Sodium Potassium Chloride Carbon Dioxide Anion Gap BUN Creatinine Estim Creat Clear Calc Est GFR (MDRD) Af Amer Est GFR (MDRD) Non-Af BUN/Creatinine Ratio Glucose Lactic Acid 0.8 Calcium Total Bilirubin AST ALT Alkaline Phosphatase Troponin I Total Protein Albumin Globulin Albumin/Globulin Ratio Lipase Serum , Qual NEGATIVE Tacrolimus Pending 04/15/18 04/15/18 07:40 11:05 WBC RBC Hgb Hct MCV MCH MCHC RDW RDW Differential Plt Count MPV Immature Gran % (Auto) Neut % (Auto) Lymph % (Auto) [place] % (Auto) Eos % (Auto) Baso % (Auto) Absolute Neuts (auto) Absolute Lymphs (auto) Total Counted PT INR APTT Sodium Potassium Chloride Carbon Dioxide Anion Gap BUN Creatinine Estim Creat Clear Calc Est GFR (MDRD) Af Amer Est GFR (MDRD) Non-Af BUN/Creatinine Ratio Glucose Lactic Acid Calcium Total Bilirubin AST ALT Alkaline Phosphatase Troponin I 0.350 H Pending Total Protein Albumin Globulin Albumin/Globulin Ratio Lipase Serum , Qual Tacrolimus Assessment/Plan All Active Problems (Last Reviewed 04/07/18 @ 13:41 by Reina Perez) Renal transplant recipient (Acute) Sinusitis (Acute) Amenorrhea (Acute) Severe sepsis (Acute) HCAP (healthcare-associated pneumonia) (Acute) Legionella pneumonia (Acute) Acute respiratory failure with hypoxia (Acute) NEL (acute kidney injury) (Acute) 1- NEL on CKD: CKD is from CNI Baseline Cr is around 1.7 mg/dL. Pt had recent NEL in January possible from ATN related to pneumonia. Cr improved to baseline Now Cr is up to 4.8 mg/dL. most probably related to prerenal from dehydration. I agree with volume expansion with IV NS for now Less likely due to acute rejection. No tenderness over the transplanted kidney. Pt has been taking amanda IS medications I will check UA along urine electrolytes Avoid ACEI/ARB Check renal function in am 2- ESRD s/p DDKT in 2008 at [facility] Will continue the same IS of Cellcept 500 BID, prograf 3 mg PO BID and prednisone Will check prograf trough level Renal team will continue to follow Thank you for the consult D/W Dr. Sarath MCCONNELL MD
[2018-04-15] MEDS: Insulin Lispro 100 UNIT/ML INSULN.PEN SC ×2 (11:43→22:35)
[2018-04-15 14:26] LABS: Mucous, Urine 0 SEEN /hpf (<or=2+); Red Blood Cells-Urine 0 SEEN /hpf (0-5); White Blood Cells 0 SEEN /hpf (0-5)
[2018-04-15 14:31] LABS: Color, Urine Yellow (Yellow); Glucose, Dipstick 50 mg/dl (Normal); Ketone-Dipstick 5 mg/dl (Negative); Leukocyte Esterase-Dipstick Negative /ul (Negative); Nitrite-Dipstick Negative (Negative); Occult Blood-Urine Negative /ul (Negative); Protein-Dipstick 100 mg/dl (Negative); Urine Bilirubin Dipstick Negative (Negative); Urine Clarity Sl. Cloudy (Clear); Urine Urobilinogen Normal (Normal)
[2018-04-15 14:38] LABS: Urine Sodium 42 mmol/L (Not Establ.)
[2018-04-15 14:42] LABS: Bacteria RARE /hpf (None Seen); Squamous Epithelial Cells - UA 0-5 SEEN /hpf (5-10)
[2018-04-15 16:21] LABS: Bedside Glucose 148 mg/dL (70-110)
[2018-04-15] MEDS: Acetaminophen 325 MG Tablet 650 MG PO (20:55)
[2018-04-15] MEDS: Tacrolimus Anhydrous 1 MG Capsule 2 MG PO (22:39)
[2018-04-15] MEDS: Pravastatin 40 MG Tablet PO (22:39)
[2018-04-15 22:46] LABS: Bedside Glucose 318 mg/dL (70-110)
[2018-04-15] MEDS: Zolpidem Tartrate 5 MG Tablet PO (22:47)
[2018-04-16] VITALS (13 sets, daily range): BP systolic 114–144; BP diastolic 51–62; PULSE 64–80; RESP 16–18; TEMP 36.7–37.3; O2SAT 99–100
[2018-04-16] MEDS: 0.9% NaCl Peripheral Flush Adult/Peds IV ×2 (05:07→20:12)
--- NOTE | 2018-04-16 05:37 | PCM.RX.CS ---
Consult Pharmacy has been consulted to manage selected antiobiotic: Vancomycin Type of Consult: New start Labs: Sodium 137 mmol/L (136-145) 04/15/18 05:05 Potassium 4.4 mmol/L (3.5-5.1) 04/15/18 05:05 Chloride 104 mmol/L (98-107) 04/15/18 05:05 Carbon Dioxide 18.0 mmol/L (21.0-32.0) L 04/15/18 05:05 Anion Gap 15 (5-15) 04/15/18 05:05 BUN 75 mg/dL (7-18) H 04/15/18 05:05 Creatinine 4.84 mg/dL (0.55-1.02) H 04/15/18 05:05 Est GFR (MDRD) Af Amer 13 mL/min (>60) L 04/15/18 05:05 Est GFR (MDRD) Non-Af 11 mL/min (>60) L 04/15/18 05:05 BUN/Creatinine Ratio 15.5 RATIO (10-20) 04/15/18 05:05 Glucose 199 mg/dL (74-106) H 04/15/18 05:05 Microbiology: Microbiology 04/15/18 05:05 Blood Culture (Wb) - Central Line Blood Culture - Preliminary Weight used for dosin.4 kg Estimated Creatinine Clearance: 14.6 Goal Trough: 15-20 mcg/mL Pharmacy Plan for Drug Dosing: Pharmacy Service will continue to monitor and adjust dosing as required. Medications Discontinued Medications Vancomycin HCl 1,750 mg/ (Sodium Chloride) 535 mls @ 250 mls/hr IV X1 ONE Stop: 04/16/18 02:23 Last Admin: 04/16/18 00:22 Dose: 250 mls/hr CRCL < 20 NOT ON HD RANDOM LEVEL TO BE DRAWN 04/18 @ 0600, MAINTENANCE DOSE TO BE SET THEN Follow-Up Labs: Trough Vancomycin Labs to be done on [date and time ordered]: RANDOM LEVEL 04/18 @ 0600
[2018-04-16 05:42] LABS: Hematocrit 32.4 % (37-47); Hemoglobin 10.7 g/dl (12.0-15.0); Mean Corpuscular Hgb 28.2 pg (27.0-32.0); Mean Corpuscular Volume 85.5 fL (81-99); Platelet Count 99 K/mm3 (150-450); RBC Distribution Width CV 15.1 % (11.6-14.6); RBC Distribution Width SD 47.5 fl (35.1-43.9); Red Blood Count 3.79 M/mm3 (4.2-5.4); White Blood Count 3.9 K/mm3 (4.4-11.0)
[2018-04-16 05:44] LABS: Scan Indicated on CBC? Y/N YES- FLAGS NOTED
[2018-04-16 05:52] LABS: ALB/GLOB Ratio 0.8 RATIO (0.9-2.4); AST(SGOT) 15 U/L (15-37); Alanine Aminotransfer ALT/SGPT 11 U/L (13-56); Albumin, Serum 2.8 g/dL (3.2-5.0); Alkaline Phosphatase 42 U/L (45-117); Anion Gap 9 (5-15); BUN 52 mg/dL (7-18); Calcium,Total 7.9 mg/dL (8.5-10.1); Chloride 113 mmol/L (98-107); Cholesterol 210 mg/dL (200); Creatinine, Serum 3.25 mg/dL (0.55-1.02); EST Glomerular Filtration Rate 17 mL/min (>60); Est Glom Filt Rate - Afr Amer 20 mL/min (>60); Estimated Creatinine Clearance 21.76 ml/min; Globulin 3.3 g/dL (2.2-4.2); Glucose 298 mg/dL (74-106); High Density Lipoprotein 28 mg/dL; Potassium 4.6 mmol/L (3.5-5.1); Protein, Total 6.1 g/dL (6.4-8.2); Sodium Level 141 mmol/L (136-145); Triglycerides 268 mg/dL; Very Low Density Lipoprotein 54 mg/dL (5-40)
[2018-04-16 05:58] LABS: Differential Comment SCANNED
[2018-04-16] MEDS: 0.9% Normal Saline 1,000 ML 150 ML IV ×3 (06:16→19:12)
[2018-04-16 07:00] LABS: Bedside Glucose 294 mg/dL (70-110)
[2018-04-16] MEDS: predniSONE 5 MG Tablet PO (07:59)
[2018-04-16] MEDS: Insulin Lispro 100 UNIT/ML INSULN.PEN SC ×4 (08:00→21:53)
--- NOTE | 2018-04-16 09:22 | PCM.PN.REN ---
Patient Problems: Active and Suspected Problems (Last Reviewed 04/07/18 @ 13:41 by Reina Perez) Renal transplant recipient (Acute) Subjective: No complaints . No nausea No vomiting. No SOB No diarrhea - Physical Exam General: Alert, Oriented x3 HEENT: Atraumatic Oral: Moist Mucosa Neck: Supple, No JVD Lungs: Clear to auscultation, Normal air movement, No rhonchi, No wheeze Cardiovascular: Regular rate, Regular Rhythm, Normal S1, Normal S2 Abdomen: Bowel Sounds Present, Soft, Non Tender Extremities: No clubbing, No cyanosis, No edema Skin: No rashes Musculoskeletal: No Tenderness to Palpation of Joints or Extremities Lymphatic: No Cervical, Supraclavicular, or Inguinal Adenopathy Neurological: Cranial nerves II-XII grossly intact, Neuro grossly intact Psych/Mental Status: Normal Affect Vital Signs Temp Pulse Resp BP Pulse Ox 98.2 F 78 16 144/51 H 100 04/16/18 08:09 04/16/18 08:09 04/16/18 08:09 04/16/18 08:09 04/16/18 08:09 Oxygen Delivery Method Room Air Weight: 71.4 kg Body Mass Index (BMI) 25.2 Finger Stick Blood Glucose 176 Intake and Output for Last 24 Hours 04/14/18 04/15/18 04/16/18 23:59 23:59 23:59 Intake Total 1882 / 1882 1094 / 1094 Output Total 0 / 0 Balance 1882 / 1882 1094 / 1094 Microbiology Past 72 Hours 04/15/18 05:05 Bacteria Detection (PCR) - Final Blood Culture (Wb) - Central Line Staphylococcus epidermidis Blood Culture - Preliminary Staphylococcus epidermidis Laboratory Tests Past 24 Hrs 04/15/18 04/15/18 04/15/18 05:05 11:05 14:10 WBC RBC Hgb Hct MCV MCH MCHC RDW RDW Differential Plt Count MPV Differential Comment Sodium Potassium Chloride Carbon Dioxide Anion Gap BUN Creatinine Estim Creat Clear Calc Est GFR (MDRD) Af Amer Est GFR (MDRD) Non-Af BUN/Creatinine Ratio Glucose Calcium Total Bilirubin AST ALT Alkaline Phosphatase Troponin I 0.338 H Total Protein Albumin Globulin Albumin/Globulin Ratio Triglycerides Cholesterol LDL Cholesterol VLDL Cholesterol HDL Cholesterol Urine Color Urine Clarity Urine pH Ur Specific [place] Urine Protein Urine Glucose (UA) Urine Ketones Urine Occult Blood Urine Nitrite Urine Bilirubin Urine Urobilinogen Ur Leukocyte Esterase Urine RBC Urine WBC Ur Squamous Epith Cells Urine Bacteria Urine Mucus Ur Random Sodium Urine Creatinine 191.00 Tacrolimus Pending 04/15/18 04/15/18 04/16/18 14:10 14:10 05:00 WBC 3.9 L RBC 3.79 L Hgb 10.7 L Hct 32.4 L MCV 85.5 MCH 28.2 MCHC 33.0 RDW 15.1 H RDW Differential 47.5 H Plt Count 99 L MPV 12.0 Differential Comment SCANNED Sodium Potassium Chloride Carbon Dioxide Anion Gap BUN Creatinine Estim Creat Clear Calc Est GFR (MDRD) Af Amer Est GFR (MDRD) Non-Af BUN/Creatinine Ratio Glucose Calcium Total Bilirubin AST ALT Alkaline Phosphatase Troponin I Total Protein Albumin Globulin Albumin/Globulin Ratio Triglycerides Cholesterol LDL Cholesterol VLDL Cholesterol HDL Cholesterol Urine Color Yellow Urine Clarity Sl. Cloudy Urine pH 5.0 Ur Specific [place] 1.020 Urine Protein 100 H Urine Glucose (UA) 50 H Urine Ketones 5 H Urine Occult Blood Negative Urine Nitrite Negative Urine Bilirubin Negative Urine Urobilinogen Normal Ur Leukocyte Esterase Negative Urine RBC 0 SEEN Urine WBC 0 SEEN Ur Squamous Epith Cells 0-5 SEEN Urine Bacteria RARE Urine Mucus 0 SEEN Ur Random Sodium 42 Urine Creatinine Tacrolimus 04/16/18 05:00 WBC RBC Hgb Hct MCV MCH MCHC RDW RDW Differential Plt Count MPV Differential Comment Sodium 141 Potassium 4.6 Chloride 113 H Carbon Dioxide 19.0 L Anion Gap 9 BUN 52 H Creatinine 3.25 H Estim Creat Clear Calc 21.76 Est GFR (MDRD) Af Amer 20 L Est GFR (MDRD) Non-Af 17 L BUN/Creatinine Ratio 16.0 Glucose 298 H Calcium 7.9 L Total Bilirubin 0.50 AST 15 ALT 11 L Alkaline Phosphatase 42 L Troponin I Total Protein 6.1 L Albumin 2.8 L Globulin 3.3 Albumin/Globulin Ratio 0.8 L Triglycerides 268 H Cholesterol 210 H LDL Cholesterol 128 VLDL Cholesterol 54 H HDL Cholesterol 28 L Urine Color Urine Clarity Urine pH Ur Specific [place] Urine Protein Urine Glucose (UA) Urine Ketones Urine Occult Blood Urine Nitrite Urine Bilirubin Urine Urobilinogen Ur Leukocyte Esterase Urine RBC Urine WBC Ur Squamous Epith Cells Urine Bacteria Urine Mucus Ur Random Sodium Urine Creatinine Tacrolimus POC Glucose 04/16/18 04/15/18 04/15/18 06:54 22:31 16:13 POC Glucose 294 H 318 H 148 H 11/13/18 11:22 POC Glucose 186 H Medical Necessity - Tobacco Use Smoking Status: Former smoker Assessment/Plan All Active Problems (Last Reviewed 04/07/18 @ 13:41 by Reina Perez) Renal transplant recipient (Acute) Sinusitis (Acute) Amenorrhea (Acute) Severe sepsis (Acute) HCAP (healthcare-associated pneumonia) (Acute) Legionella pneumonia (Acute) Acute respiratory failure with hypoxia (Acute) NEL (acute kidney injury) (Acute) 1- NEL on CKD: CKD is from CNI Baseline Cr is around 1.7 mg/dL. Pt had recent NEL in January possible from ATN related to pneumonia. Cr improved to baseline after ATN. Pt was admitted this time with Cr 4.8 mg/dL. most probably related to prerenal from dehydration. Cr is improving with IVF Will continue IVF for now Less likely due to acute rejection. No tenderness over the transplanted kidney. Pt has been taking amanda IS medications Avoid ACEI/ARB Check renal function in am 2- ESRD s/p DDKT in 2008 at [facility] Will continue the same IS of Cellcept 500 BID, prograf 3 mg PO BID and prednisone Will check prograf trough level Renal team will continue to follow D/W Dr. Sarath MCCONNELL MD
--- NOTE | 2018-04-16 09:39 | PCM.RX.CS ---
Consult Pharmacy has been consulted to manage selected antiobiotic: Vancomycin Type of Consult: Follow-up Suspected Infection: Other Labs: Sodium 141 mmol/L (136-145) 04/16/18 05:00 Potassium 4.6 mmol/L (3.5-5.1) 04/16/18 05:00 Chloride 113 mmol/L (98-107) H 04/16/18 05:00 Carbon Dioxide 19.0 mmol/L (21.0-32.0) L 04/16/18 05:00 Anion Gap 9 (5-15) 04/16/18 05:00 BUN 52 mg/dL (7-18) H 04/16/18 05:00 Creatinine 3.25 mg/dL (0.55-1.02) H 04/16/18 05:00 Est GFR (MDRD) Af Amer 20 mL/min (>60) L 04/16/18 05:00 Est GFR (MDRD) Non-Af 17 mL/min (>60) L 04/16/18 05:00 BUN/Creatinine Ratio 16.0 RATIO (10-20) 04/16/18 05:00 Glucose 298 mg/dL (74-106) H 04/16/18 05:00 Microbiology: Microbiology 04/15/18 05:05 Blood Culture (Wb) - Central Line Bacteria Detection (PCR) - Final Staphylococcus epidermidis 04/15/18 05:05 Blood Culture (Wb) - Central Line Blood Culture - Preliminary Staphylococcus epidermidis Goal Trough: 15-20 mcg/mL Pharmacy Plan for Drug Dosing: Renal function has improved (SCr = 3.25, CrCl = 21.8) somewhat from last night so changed vancomycin random level to be drawn tomorrow instead of the day after tomorrow. Pharmacy will further dose after that is done tomorrow. Pharmacy Service will continue to monitor and adjust dosing as required. Follow-Up Labs: Trough Other - Vancomycin random Labs to be done on [date and time ordered]: 04/17/18 06:00
[2018-04-16] MEDS: Tacrolimus Anhydrous 1 MG Capsule 2 MG PO ×2 (11:00→21:55)
[2018-04-16] MEDS: oxyCODONE 5 MG Tablet PO ×2 (11:00→21:51)
[2018-04-16] MEDS: Mycophenolate Mofetil 250 MG Capsule 500 MG PO ×2 (11:00→21:56)
[2018-04-16] MEDS: Carvedilol 25 MG Tablet PO ×2 (11:03→21:55)
[2018-04-16] MEDS: Gabapentin 300 MG Capsule PO (11:03)
[2018-04-16] MEDS: NIFEdipine 60 MG Tablet PO ×2 (11:04→21:55)
[2018-04-16 11:21] LABS: Bedside Glucose 180 mg/dL (70-110)
[2018-04-16 16:35] LABS: Bedside Glucose 347 mg/dL (70-110)
[2018-04-16] MEDS: Ondansetron 4 MG/2 ML Vial IV (20:12)
--- NOTE | 2018-04-16 20:48 | PCM.PROGNOTE ---
Subjective: Patient was seen and examined today, she had a positive blood culture from her right internal jugular central line that resulted as staph epidermidis. Blood cultures drawn from her right arm are still pending at this time. Patient is not running a temperature, she does not appear toxic, her creatinine was improved today. I have decided to have nursing insert a peripheral line and if this is successful, her IJ will be discontinued and cultured. Patient received 1 dose of vancomycin, I do not believe she needs to be continued on IV vancomycin. - Physical Exam General: Alert, Oriented x3, Cooperative HEENT: Atraumatic, PERRLA, EOMI, Normocephalic Oral: Moist Mucosa Neck: Supple, No Nuchal Rigidity, Trachea Midline, Thyroid Normal Size and Texture, - - Right internal jugular central line is present Lungs: Clear to auscultation, Normal air movement, No rhonchi, No wheeze Cardiovascular: Regular rate, Regular Rhythm, Normal S1, Normal S2, No murmurs, No Ectopic Activity Abdomen: Bowel Sounds Present, Soft, Non Tender, Non-Distended Extremities: No clubbing, No cyanosis, No edema, Capillary Refill Less than 3 Seconds Skin: No rashes, No breakdown Neurological: Cranial nerves II-XII grossly intact, Neuro grossly intact, Sensory exam intact to light touch and pain, Coordination normal Psych/Mental Status: Normal Affect, Appropriate, Alert and oriented to time, place, person, mood and affect Vital Signs Temp Pulse Resp BP Pulse Ox 98.8 F 77 18 114/62 99 04/16/18 18:44 04/16/18 19:00 04/16/18 18:44 04/16/18 18:44 04/16/18 18:44 Oxygen Delivery Method Room Air Weight: 71.4 kg Body Mass Index (BMI) 25.2 Finger Stick Blood Glucose 176 Intake and Output for Last 24 Hours 04/14/18 04/15/18 04/16/18 23:59 23:59 23:59 Intake Total 1881 / 188 3533 / 3533 Output Total 0 / 0 Balance 1881 / 188 3533 / 3533 Microbiology Past 72 Hours 04/15/18 14:10 Urine Culture - Preliminary Urine, Clean Catch Culture exhibits no growth. 04/15/18 05:05 Bacteria Detection (PCR) - Final Blood Culture (Wb) - Central Line Staphylococcus epidermidis Blood Culture - Preliminary Staphylococcus epidermidis Laboratory Tests Past 24 Hrs 04/16/18 04/16/18 05:00 05:00 WBC 3.9 L RBC 3.79 L Hgb 10.7 L Hct 32.4 L MCV 85.5 MCH 28.2 MCHC 33.0 RDW 15.1 H RDW Differential 47.5 H Plt Count 99 L MPV 12.0 Differential Comment SCANNED Sodium 141 Potassium 4.6 Chloride 113 H Carbon Dioxide 19.0 L Anion Gap 9 BUN 52 H Creatinine 3.25 H Estim Creat Clear Calc 21.76 Est GFR (MDRD) Af Amer 20 L Est GFR (MDRD) Non-Af 17 L BUN/Creatinine Ratio 16.0 Glucose 298 H Calcium 7.9 L Total Bilirubin 0.50 AST 15 ALT 11 L Alkaline Phosphatase 42 L Total Protein 6.1 L Albumin 2.8 L Globulin 3.3 Albumin/Globulin Ratio 0.8 L Triglycerides 268 H Cholesterol 210 H LDL Cholesterol 128 VLDL Cholesterol 54 H HDL Cholesterol 28 L POC Glucose 04/16/18 04/16/18 04/16/18 16:18 11:11 06:54 POC Glucose 347 H 180 H 294 H 04/15/18 22:31 POC Glucose 318 H Medical Necessity - Tobacco Use Smoking Status: Former smoker Assessment/Plan All Active Problems (Last Reviewed 04/07/18 @ 13:41 by Reina Perez) Sinusitis (Resolved) Severe sepsis (Resolved) HCAP (healthcare-associated pneumonia) (Resolved) Legionella pneumonia (Resolved) Acute respiratory failure with hypoxia (Resolved) NEL (acute kidney injury) (Acute) #1 acute kidney injury-nephrology is participating in her care, IV fluids will be continued #2 Positive blood culture for staph epidermidis from right internal jugular central line-I believe this to be a contaminant, patient is not toxic appearing and she is running no temperature. IJ will be discontinued if possible and cultured, a peripheral line will be started if possible. #3 type 1 diabetes-continue to monitor blood sugar, sliding scale insulin will be given as needed #4 hypertension #5 history of renal transplant with chronic immunosuppressant drug treatment #6 end-stage renal disease status post kidney transplant 2008 #7 chronic kidney disease secondary to diabetic kidney disease Code Visit Inpatient E&M: 40622 Subs Hosp L2
--- NOTE | 2018-04-16 20:54 | PN_ITS ---
Subjective: Patient was seen and examined today, she had a positive blood culture from her right internal jugular central line that resulted as staph epidermidis. Blood cultures drawn from her right arm are still pending at this time. Patient is not running a temperature, she does not appear toxic, her creatinine was improved today. I have decided to have nursing insert a peripheral line and if this is successful, her IJ will be discontinued and cultured. Patient received 1 dose of vancomycin, I do not believe she needs to be continued on IV vancomyci n. - Physical Exam General: Alert, Oriented x3, Cooperative HEENT: Atraumatic, PERRLA, EOMI, Normocephalic Oral: Moist Mucosa Neck: Supple, No Nuchal Rigidity, Trachea Midline, Thyroid Normal Size and Texture, - - Right internal jugular central line is present Lungs: Clear to auscultation, Normal air movement, No rhonchi, No wheeze Cardiovascular: Regular rate, Regular Rhythm, Normal S1, Normal S2, No murmurs, No Ectopic Activity Abdomen: Bowel Sounds Present, Soft, Non Tender, Non-Distended Extremities: No clubbing, No cyanosis, No edema, Capillary Refill Less than 3 Seconds Skin: No rashes, No breakdown Neurological: Cranial nerves II-XII grossly intact, Neuro grossly intact, Sensory exam intact to light touch and pain, Coordination normal Psych/Mental Status: Normal Affect, Appropriate, Alert and oriented to time, place, person, mood and affect Vital Signs Temp Pulse Resp BP Pulse Ox 98.8 F 77 18 114/62 99 04/16/18 18:44 04/16/18 19:00 04/16/18 18:44 04/16/18 18:44 04/16/18 18:44 Oxygen Delivery Method Room Air Weight: 71.4 kg Body Mass Index (BMI) 25.2 Finger Stick Blood Glucose 176 Intake and Output for Last 24 Hours 04/14/18 04/15/18 04/16/18 23:59 23:59 23:59 Intake Total 1881 / 1881 3533 / 3533 Output Total 0 / 0 Balance 1882 / 188 3533 / 3533 Microbiology Past 72 Hours 04/15/18 14:10 Urine Culture - Preliminary Urine, Clean Catch Culture exhibits no growth. 04/15/18 05:05 Bacteria Detection (PCR) - Final Blood Culture (Wb) - Central Line Staphylococcus epidermidis Blood Culture - Preliminary Staphylococcus epidermidis Laboratory Tests Past 24 Hrs 04/16/18 04/16/18 05:00 05:00 WBC 3.9 L RBC 3.79 L Hgb 10.7 L Hct 32.4 L MCV 85.5 MCH 28.2 MCHC 33.0 RDW 15.1 H RDW Differential 47.5 H Plt Count 99 L MPV 12.0 Differential Comment SCANNED Sodium 141 Potassium 4.6 Chloride 113 H Carbon Dioxide 19.0 L Anion Gap 9 BUN 52 H Creatinine 3.25 H Estim Creat Clear Calc 21.76 Est GFR (MDRD) Af Amer 20 L Est GFR (MDRD) Non-Af 17 L BUN/Creatinine Ratio 16.0 Glucose 298 H Calcium 7.9 L Total Bilirubin 0.50 AST 15 ALT 11 L Alkaline Phosphatase 42 L Total Protein 6.1 L Albumin 2.8 L Globulin 3.3 Albumin/Globulin Ratio 0.8 L Triglycerides 268 H Cholesterol 210 H LDL Cholesterol 128 VLDL Cholesterol 54 H HDL Cholesterol 28 L POC Glucose 04/16/18 04/16/18 04/16/18 16:18 11:11 06:54 POC Glucose 347 H 180 H 294 H 04/15/18 22:31 POC Glucose 318 H Medical Necessity - Tobacco Use Smoking Status: Former smoker Assessment/Plan All Active Problems (Last Reviewed 04/07/18 @ 13:41 by Reina Perez) Sinusitis (Resolved) Severe sepsis (Resolved) HCAP (healthcare-associated pneumonia) (Resolved) Legionella pneumonia (Resolved) Acute respiratory failure with hypoxia (Resolved) NEL (acute kidney injury) (Acute) #1 acute kidney injury-nephrology is participating in her care, IV fluids will be continued #2 Positive blood culture for staph epidermidis from right internal jugular central line-I believe this to be a contaminant, patient is not toxic appearing and she is running no temperature. IJ will be discontinued if possible and cultured, a peripheral line will be started if possible. #3 type 1 diabetes-continue to monitor blood sugar, sliding scale insulin will be given as needed #4 hypertension #5 history of renal transplant with chronic immunosuppressant drug treatment #6 end-stage renal disease status post kidney transplant 2008 #7 chronic kidney disease secondary to diabetic kidney disease Code Visit Inpatient E&M: 90086 Subs Hosp L2
[2018-04-16] MEDS: Zolpidem Tartrate 5 MG Tablet PO (21:51)
[2018-04-16] MEDS: Pravastatin 40 MG Tablet PO (21:55)
[2018-04-16 22:21] LABS: Bedside Glucose 162 mg/dL (70-110)
[2018-04-17] VITALS (10 sets, daily range): BP systolic 127–149; BP diastolic 47–68; PULSE 76–85; RESP 16–18; TEMP 36.5–36.8; O2SAT 100
[2018-04-17] MEDS: 0.9% Normal Saline 1,000 ML 150 ML IV ×2 (01:52→08:50)
[2018-04-17 06:40] LABS: Absolute Lymphocyte Count 0.79 X10^3/ul (0.83-4.51); Absolute Neutrophil Count 1.8 X10^3/uL (2.0-7.7); Basophil# 0.01 X10^3/uL; Basophil% 0.3 % (0-1); Eosinophil# 0.12 X10^3/uL; Eosinophils% 3.8 % (0-5); Hemoglobin 10.9 g/dl (12.0-15.0); Lymphocyte # 0.79 X10^3/ul (4.0); Lymphocyte % 24.8 % (19-41); Mean Corp Hgb Conc 34.1 g/gl (32-36); Mean Corpuscular Hgb 28.8 pg (27.0-32.0); Mean Corpuscular Volume 84.4 fL (81-99); Monocyte# 0.44 X10^3/uL; Monocyte% 13.8 % (0-10); Neutrophil # 1.81 X10^3/uL (2.7-7.7); Platelet Count 112 K/mm3 (150-450); RBC Distribution Width CV 14.8 % (11.6-14.6); Red Blood Count 3.79 M/mm3 (4.2-5.4); White Blood Count 3.2 K/mm3 (4.4-11.0)
[2018-04-17 06:42] LABS: POSITIVE COUNT NO; POSITIVE DIFFERENTIAL NO; POSITIVE MORPHOLOGY NO
[2018-04-17 06:52] LABS: Anion Gap 9 (5-15); BUN 29 mg/dL (7-18); BUN/Creat Ratio 12.5 RATIO (10-20); Calcium,Total 8.1 mg/dL (8.5-10.1); Chloride 114 mmol/L (98-107); Creatinine, Serum 2.32 mg/dL (0.55-1.02); EST Glomerular Filtration Rate 25 mL/min (>60); Est Glom Filt Rate - Afr Amer 30 mL/min (>60); Estimated Creatinine Clearance 30.48 ml/min; Glucose 184 mg/dL (74-106); Potassium 4.1 mmol/L (3.5-5.1); Sodium Level 144 mmol/L (136-145); Vancomycin, Random Level 15.7 ug/mL (0.0-15.0)
[2018-04-17 06:55] LABS: Bedside Glucose 165 mg/dL (70-110)
[2018-04-17] MEDS: predniSONE 5 MG Tablet PO (08:54)
[2018-04-17] MEDS: Mycophenolate Mofetil 250 MG Capsule 500 MG PO ×2 (08:54→21:53)
[2018-04-17] MEDS: oxyCODONE 5 MG Tablet PO ×2 (08:55→21:53)
[2018-04-17] MEDS: NIFEdipine 60 MG Tablet PO ×2 (08:56→21:52)
[2018-04-17] MEDS: Tacrolimus Anhydrous 1 MG Capsule 2 MG PO ×2 (08:56→21:54)
[2018-04-17] MEDS: Gabapentin 300 MG Capsule PO (08:57)
[2018-04-17] MEDS: Carvedilol 25 MG Tablet PO ×2 (08:57→21:53)
--- NOTE | 2018-04-17 09:58 | PCM.PN.REN ---
Subjective: Pt has no nausea / vomiting. She could not tolerated regular food last night No diarrhea. No SOB. No CP - Physical Exam General: Alert, Oriented x3 HEENT: Atraumatic Oral: Moist Mucosa Neck: Supple, No JVD Lungs: Clear to auscultation, Normal air movement, No rhonchi, No wheeze Cardiovascular: Regular rate, Regular Rhythm, Normal S1, Normal S2 Abdomen: Bowel Sounds Present, Soft, Non Tender, Non-Distended Extremities: No clubbing, No cyanosis, No edema Skin: No rashes Musculoskeletal: No Tenderness to Palpation of Joints or Extremities Lymphatic: No Cervical, Supraclavicular, or Inguinal Adenopathy Neurological: Cranial nerves II-XII grossly intact, Neuro grossly intact Psych/Mental Status: Normal Affect Vital Signs Temp Pulse Resp BP Pulse Ox 98.3 F 80 18 139/56 H 100 04/17/18 08:48 04/17/18 08:48 04/17/18 08:48 04/17/18 08:48 04/17/18 08:48 Oxygen Delivery Method Room Air Weight: 71.4 kg Body Mass Index (BMI) 25.2 Finger Stick Blood Glucose 176 Intake and Output for Last 24 Hours 04/15/18 04/16/18 04/17/18 23:59 23:59 23:59 Intake Total 1882 / 1882 4694 / 4694 1194 / 1194 Output Total 0 / 0 Balance 1882 / 1882 4694 / 4694 1194 / 1194 Microbiology Past 72 Hours 04/15/18 05:05 Bacteria Detection (PCR) - Final Blood Culture (Wb) - Central Line Staphylococcus epidermidis Blood Culture - Preliminary Staphylococcus epidermidis 04/15/18 07:40 Blood Culture - Preliminary Blood Culture (Wb) - Anticubital Right No growth in 48 hours. 04/15/18 14:10 Urine Culture - Preliminary Urine, Clean Catch Culture exhibits no growth. Laboratory Tests Past 24 Hrs 04/17/18 04/17/18 04/17/18 06:10 06:10 06:10 WBC 3.2 L RBC 3.79 L Hgb 10.9 L Hct 32.0 L MCV 84.4 MCH 28.8 MCHC 34.1 RDW 14.8 H RDW Differential 44.0 H Plt Count 112 L MPV 12.0 Immature Gran % (Auto) 0.300 Neut % (Auto) 57.0 Lymph % (Auto) 24.8 [place] % (Auto) 13.8 H Eos % (Auto) 3.8 Baso % (Auto) 0.3 Absolute Neuts (auto) 1.8 L Absolute Lymphs (auto) 0.79 L Total Counted Not Reportable Sodium 144 Potassium 4.1 Chloride 114 H Carbon Dioxide 21.0 Anion Gap 9 BUN 29 H Creatinine 2.32 H Estim Creat Clear Calc 30.48 Est GFR (MDRD) Af Amer 30 L Est GFR (MDRD) Non-Af 25 L BUN/Creatinine Ratio 12.5 Glucose 184 H Calcium 8.1 L Random Vancomycin 15.7 H POC Glucose 04/17/18 04/16/18 04/16/18 06:46 21:35 16:18 POC Glucose 165 H 162 H 347 H 04/16/18 11:11 POC Glucose 180 H Medical Necessity - Tobacco Use Smoking Status: Former smoker Assessment/Plan All Active Problems (Last Reviewed 04/07/18 @ 13:41 by Reina Perez) Sinusitis (Resolved) Severe sepsis (Resolved) HCAP (healthcare-associated pneumonia) (Resolved) Legionella pneumonia (Resolved) Acute respiratory failure with hypoxia (Resolved) NEL (acute kidney injury) (Acute) 1- NEL on CKD: CKD is from [facility]NI long use Baseline Cr is around 1.7 mg/dL. Pt had recent NEL in January possibly from ATN related to pneumonia. Cr improved to baseline after ATN. Pt was admitted this time with Cr 4.8 mg/dL. most probably related to prerenal from dehydration due to nausea/vomiting and poor oral intake. Cr is improving with IVF Will continue IVF for now but will decrease the rate to 100 cc/hour Less likely due to acute rejection. No tenderness over the transplanted kidney. Pt has been taking IS medications regularly Avoid ACEI/ARB Check renal function in am 2- ESRD s/p DDKT in 2008 at [facility] Will continue the same IS of Cellcept 500 BID, prograf 2 mg PO BID and prednisone 5 mg PO daily Prograf trough level is pending Renal team will continue to follow D/W Dr. Sarath MCCONNELL MD
[2018-04-17] MEDS: Insulin Lispro 100 UNIT/ML INSULN.PEN SC ×4 (10:05→21:58)
[2018-04-17] MEDS: Ondansetron 4 MG/2 ML Vial IV ×2 (11:41→19:56)
[2018-04-17] MEDS: 0.9% NaCl Peripheral Flush Adult/Peds IV (11:42)
[2018-04-17 12:11] LABS: Bedside Glucose 176 mg/dL (70-110)
[2018-04-17] MEDS: 0.9% Normal Saline 1,000 ML 100 ML IV (17:15)
[2018-04-17 17:21] LABS: Bedside Glucose 285 mg/dL (70-110)
--- NOTE | 2018-04-17 19:28 | PCM.PROGNOTE ---
Subjective: Patient was seen and examined today, she is complained of being nauseated today but she was able to keep down food. I talked with nephrology this morning and they were concerned that if she was discharged today she would return due to persistent nausea and vomiting. I decided late this afternoon to keep the patient here in the hospital and continue IV fluids and recheck her labs tomorrow. Patient's creatinine has decreased since yesterday. Patient's blood culture from her arm was negative, I believe that the blood culture obtained from her IJ was a contaminant, we were not able to start a peripheral line on the patient. - Physical Exam General: Alert, Oriented x3, Cooperative, No apparent distress HEENT: Atraumatic, PERRLA, EOMI, Normocephalic Oral: Moist Mucosa Neck: Supple, No Nuchal Rigidity, Trachea Midline, Thyroid Normal Size and Texture Lungs: Clear to auscultation, Normal air movement, No rhonchi, No wheeze, No rales Cardiovascular: Regular rate, Regular Rhythm, Normal S1, Normal S2, No murmurs, No Ectopic Activity Abdomen: Bowel Sounds Present, Soft, Non Tender, Non-Distended, No hernias noted Extremities: No clubbing, No cyanosis, No edema, Capillary Refill Less than 3 Seconds Skin: No rashes, No breakdown Musculoskeletal: No Tenderness to Palpation of Joints or Extremities Neurological: Cranial nerves II-XII grossly intact, Neuro grossly intact, Muscle tone normal, Sensory exam intact to light touch and pain, Coordination normal Psych/Mental Status: Normal Affect, Appropriate, Alert and oriented to time, place, person, mood and affect Vital Signs Temp Pulse Resp BP Pulse Ox 98.2 F 85 18 149/68 H 100 04/17/18 14:27 04/17/18 15:36 04/17/18 14:27 04/17/18 14:27 04/17/18 14:27 Oxygen Delivery Method Room Air Weight: 71.4 kg Body Mass Index (BMI) 25.2 Finger Stick Blood Glucose 176 Intake and Output for Last 24 Hours 04/15/18 04/16/18 04/17/18 23:59 23:59 23:59 Intake Total 188 / 1882 4694 / 4694 3584 / 3584 Output Total 0 / 0 Balance 1882 / 1882 4694 / 4694 3584 / 3584 Microbiology Past 72 Hours 04/15/18 14:10 Urine Culture - Final Urine, Clean Catch Culture exhibits no growth. 04/15/18 05:05 Bacteria Detection (PCR) - Final Blood Culture (Wb) - Central Line Staphylococcus epidermidis Blood Culture - Preliminary Staphylococcus epidermidis 04/15/18 07:40 Blood Culture - Preliminary Blood Culture (Wb) - Anticubital Right No growth in 48 hours. Laboratory Tests Past 24 Hrs 04/17/18 04/17/18 04/17/18 06:10 06:10 06:10 WBC 3.2 L RBC 3.79 L Hgb 10.9 L Hct 32.0 L MCV 84.4 MCH 28.8 MCHC 34.1 RDW 14.8 H RDW Differential 44.0 H Plt Count 112 L MPV 12.0 Immature Gran % (Auto) 0.300 Neut % (Auto) 57.0 Lymph % (Auto) 24.8 [place] % (Auto) 13.8 H Eos % (Auto) 3.8 Baso % (Auto) 0.3 Absolute Neuts (auto) 1.8 L Absolute Lymphs (auto) 0.79 L Total Counted Not Reportable Sodium 144 Potassium 4.1 Chloride 114 H Carbon Dioxide 21.0 Anion Gap 9 BUN 29 H Creatinine 2.32 H Estim Creat Clear Calc 30.48 Est GFR (MDRD) Af Amer 30 L Est GFR (MDRD) Non-Af 25 L BUN/Creatinine Ratio 12.5 Glucose 184 H Calcium 8.1 L Random Vancomycin 15.7 H POC Glucose 04/17/18 04/17/18 04/17/18 17:05 11:45 06:46 POC Glucose 285 H 176 H 165 H 04/16/18 21:35 POC Glucose 162 H Medical Necessity - Tobacco Use Smoking Status: Former smoker Assessment/Plan All Active Problems (Last Reviewed 04/07/18 @ 13:41 by Reina Perez) Sinusitis (Resolved) Severe sepsis (Resolved) HCAP (healthcare-associated pneumonia) (Resolved) Legionella pneumonia (Resolved) Acute respiratory failure with hypoxia (Resolved) NEL (acute kidney injury) (Acute) #1 acute kidney injury-nephrology is participating in her care, IV fluids will be continued, repeat BMP in the morning #2 Positive blood culture for staph epidermidis from right internal jugular central [id number]'s blood culture from her arm is negative, I feel the IJ blood culture was contaminated, we do not have IV access however other than her central line, I talked to the patient briefly about talking to her PCP about getting a Mediport inserted. #3 type 1 diabetes-continue to monitor blood sugar, sliding scale insulin will be given as needed #4 hypertension #5 history of renal transplant with chronic immunosuppressant drug treatment #6 end-stage renal disease status post kidney transplant 2008 #7 chronic kidney disease secondary to diabetic kidney disease #8 chronic intermittent nausea and vomiting-patient probably has diabetic gastroparesis, I asked her to discuss this with her PCP when she follows up with her as an outpatient. Patient also sees endocrinology, she could discuss this with endocrinology also, I briefly discussed the use of Reglan with this patient but I am not sure she has diabetic gastroparesis. Code Visit Inpatient E&M: 33665 Subs Hosp L2
[2018-04-17] MEDS: Pravastatin 40 MG Tablet PO (21:54)
[2018-04-17 22:06] LABS: Bedside Glucose 175 mg/dL (70-110)
[2018-04-17] MEDS: Zolpidem Tartrate 5 MG Tablet PO (22:06)
[2018-04-18 01:00] VITALS: BP 143/56; PULSE 83; RESP 18; TEMP 36.7; O2SAT 100
[2018-04-18 03:02] VITALS: PULSE 80
[2018-04-18] MEDS: 0.9% Normal Saline 1,000 ML 100 ML IV (03:20)
[2018-04-18] MEDS: 0.9% NaCl Peripheral Flush Adult/Peds IV ×2 (05:54→08:06)
[2018-04-18 06:00] VITALS: BP 142/55; PULSE 79; RESP 16; TEMP 36.8; O2SAT 100
[2018-04-18 06:18] LABS: Anion Gap 9 (5-15); BUN 20 mg/dL (7-18); Calcium,Total 8.1 mg/dL (8.5-10.1); Chloride 114 mmol/L (98-107); Creatinine, Serum 2.23 mg/dL (0.55-1.02); EST Glomerular Filtration Rate 26 mL/min (>60); Est Glom Filt Rate - Afr Amer 31 mL/min (>60); Estimated Creatinine Clearance 31.71 ml/min; Glucose 173 mg/dL (74-106); Potassium 3.8 mmol/L (3.5-5.1); Sodium Level 144 mmol/L (136-145)
[2018-04-18 07:01] LABS: Bedside Glucose 182 mg/dL (70-110)
[2018-04-18 07:21] VITALS: PULSE 80
[2018-04-18] MEDS: Ondansetron 4 MG/2 ML Vial IV (08:05)
[2018-04-18] MEDS: predniSONE 5 MG Tablet PO (08:09)
--- NOTE | 2018-04-18 09:34 | PCM.PN.REN ---
Subjective: Pt said she did well with Zofran before meal. She was able to eat her meal No nausea no vomiting . No SOB - Physical Exam General: Alert, Oriented x3 HEENT: Atraumatic Oral: Moist Mucosa Neck: Supple, No JVD Lungs: Clear to auscultation, Normal air movement, No rhonchi, No wheeze Cardiovascular: Regular rate, Regular Rhythm, Normal S1, Normal S2, No murmurs Abdomen: Bowel Sounds Present, Non Tender Extremities: No clubbing, No cyanosis, No edema Skin: No rashes Musculoskeletal: No Tenderness to Palpation of Joints or Extremities Lymphatic: No Cervical, Supraclavicular, or Inguinal Adenopathy Neurological: Cranial nerves II-XII grossly intact, Neuro grossly intact Psych/Mental Status: Normal Affect Vital Signs Temp Pulse Resp BP Pulse Ox 98.2 F 80 16 142/55 H 100 04/18/18 06:00 04/18/18 07:21 04/18/18 06:00 04/18/18 06:00 04/18/18 06:00 Oxygen Delivery Method Room Air Weight: 71.4 kg Body Mass Index (BMI) 25.2 Finger Stick Blood Glucose 176 Intake and Output for Last 24 Hours 04/16/18 04/17/18 04/18/18 23:59 23:59 23:59 Intake Total 4694 / 4694 3584 / 3584 1443 / 1443 Balance 4694 / 4694 3584 / 3584 1443 / 1443 Microbiology Past 72 Hours 04/15/18 05:05 Bacteria Detection (PCR) - Final Blood Culture (Wb) - Central Line Staphylococcus epidermidis Blood Culture - Final Staphylococcus epidermidis 04/15/18 14:10 Urine Culture - Final Urine, Clean Catch Culture exhibits no growth. 04/15/18 07:40 Blood Culture - Preliminary Blood Culture (Wb) - Anticubital Right No growth in 48 hours. Laboratory Tests Past 24 Hrs 04/15/18 04/15/18 04/15/18 05:05 05:05 05:05 WBC 4.4 RBC 4.85 Hgb 14.1 Hct 40.0 MCV 82.5 MCH 29.1 MCHC 35.3 RDW 14.8 H RDW Differential 43.8 Plt Count 146 L MPV 12.2 H Immature Gran % (Auto) 0.200 Neut % (Auto) 71.5 H Lymph % (Auto) 17.7 L [place] % (Auto) 9.6 Eos % (Auto) 0.5 Baso % (Auto) 0.5 Absolute Neuts (auto) 3.1 Absolute Lymphs (auto) 0.77 L PT 13.9 INR 1.1 APTT 24.9 Sodium 137 Potassium 4.4 Chloride 104 Carbon Dioxide 18.0 L Anion Gap 15 BUN 75 H Creatinine 4.84 H Estim Creat Clear Calc 14.61 Est GFR (MDRD) Af Amer 13 L Est GFR (MDRD) Non-Af 11 L BUN/Creatinine Ratio 15.5 Glucose 199 H Lactic Acid Calcium 9.2 Total Bilirubin 0.60 AST 16 ALT 14 Alkaline Phosphatase 54 Troponin I 0.198 H Total Protein 7.6 Albumin 3.5 Globulin 4.1 Albumin/Globulin Ratio 0.9 Lipase 77 04/15/18 04/18/18 05:05 05:50 WBC RBC Hgb Hct MCV MCH MCHC RDW RDW Differential Plt Count MPV Immature Gran % (Auto) Neut % (Auto) Lymph % (Auto) [place] % (Auto) Eos % (Auto) Baso % (Auto) Absolute Neuts (auto) Absolute Lymphs (auto) PT INR APTT Sodium 144 Potassium 3.8 Chloride 114 H Carbon Dioxide 21.0 Anion Gap 9 BUN 20 H Creatinine 2.23 H Estim Creat Clear Calc 31.71 Est GFR (MDRD) Af Amer 31 L Est GFR (MDRD) Non-Af 26 L BUN/Creatinine Ratio 9.0 L Glucose 173 H Lactic Acid 0.8 Calcium 8.1 L Total Bilirubin AST ALT Alkaline Phosphatase Troponin I Total Protein Albumin Globulin Albumin/Globulin Ratio Lipase POC Glucose 04/18/18 04/17/18 04/17/18 06:44 21:57 17:05 POC Glucose 182 H 175 H 285 H 04/17/18 11:45 POC Glucose 176 H Medical Necessity - Tobacco Use Smoking Status: Former smoker Assessment/Plan All Active Problems (Last Reviewed 04/07/18 @ 13:41 by Reina Perez) Sinusitis (Resolved) Severe sepsis (Resolved) HCAP (healthcare-associated pneumonia) (Resolved) Legionella pneumonia (Resolved) Acute respiratory failure with hypoxia (Resolved) NEL (acute kidney injury) (Acute) 1- NEL on CKD: CKD is from CNI long use Baseline Cr is around 1.7 mg/dL. Pt had recent NEL in January possibly from ATN related to pneumonia. Cr improved to baseline after ATN. Pt was admitted this time with Cr 4.8 mg/dL. most probably related to prerenal from dehydration due to nausea/vomiting and poor oral intake. Cr is improving with IVF d/c IVF for now. Less likely due to acute rejection. No tenderness over the transplanted kidney. Pt has been taking IS medications regularly Avoid ACEI/ARB Check renal function in am 2- ESRD s/p DDKT in 2008 at [facility] Will continue the same IS of Cellcept 500 BID, prograf 2 mg PO BID and prednisone 5 mg PO daily Prograf trough level is pending 3- HTN: BP is well controlled. Continue the same BP meds Renal team will continue to follow D/W Dr. Sarath MCCONNELL MD
[2018-04-18 09:52] VITALS: BP 140/65; PULSE 80; RESP 17; TEMP 36.4; O2SAT 100
[2018-04-18] MEDS: Insulin Lispro 100 UNIT/ML INSULN.PEN SC ×2 (09:55→13:18)
[2018-04-18] MEDS: Lactulose 20 GM/30 ML UDC 30 GM PO (09:56)
[2018-04-18] MEDS: Carvedilol 25 MG Tablet PO (09:57)
[2018-04-18] MEDS: NIFEdipine 60 MG Tablet PO (09:57)
[2018-04-18] MEDS: Gabapentin 300 MG Capsule PO (09:57)
[2018-04-18] MEDS: Mycophenolate Mofetil 250 MG Capsule 500 MG PO (09:57)
[2018-04-18] MEDS: Tacrolimus Anhydrous 1 MG Capsule 2 MG PO (09:58)
[2018-04-18] MEDS: oxyCODONE 5 MG Tablet PO (10:00)
[2018-04-18 11:16] VITALS: PULSE 75
--- NOTE | 2018-04-18 11:30 | PCM.DC ---
- Discharge Diagnoses Current Active Problems: Current Active and Chronic Problems (Last Reviewed 04/07/18 @ 13:41 by Reina Perez) Acute kidney injury superimposed on chronic kidney disease (Chronic) You will use the following diet at home:: Calorie/Carbohydrate Controlled (specify 1200, 1400, etc) - 1800 Your food should be the consistency of: Regular Your liquids should be the consistency of: Regular/Thin Discharge Activity: Return to Normal Activity Weight Bearing Status: Full weight bearing Allergies/Adverse Reactions: Allergies furosemide [From Lasix] Allergy (Verified 04/15/18 03:21) Hives Medications to take at Discharge Carvedilol [Coreg] 25 mg PO BID 01/20/18 Fluticasone 0.05% [Flonase Nasal [place]] 2 spray NASAL TID PRN PRN 01/20/18 Gabapentin [Neurontin] 300 mg PO DAILY 01/20/18 Mycophenolate Mofetil 500 mg PO BID 01/20/18 Nifedipine [Nifedipine ER] 60 mg PO BID 01/20/18 Oxycodone HCl [Roxicodone] 5 mg PO BID PRN 01/20/18 Pravastatin [Pravachol] 40 mg PO QHS 01/20/18 Prednisone 5 mg PO DAILY 01/20/18 Tacrolimus Anhydrous [Prograf] 2 mg PO BID 01/20/18 Cyclobenzaprine [Flexeril] 10 mg PO TID PRN #10 tab 01/22/18 Insulin Detemir [Levemir] 32 unit SQ DAILY #1 vial 01/22/18 Insulin Aspart [Novolog Flexpen] 6 units SUBCUT TIDCM 01/27/18 diphenhydramine 25 mg tablet 25 mg PO DAILY PRN PRN 03/04/18 famotidine 20 mg tablet 20 mg PO BID PRN 03/04/18 zolpidem 10 mg tablet 10 mg PO QHS PRN 03/04/18 Cetirizine HCl [Zyrtec] 10 mg PO QHS 04/15/18 Acetaminophen [Tylenol Tablet] 650 mg PO Q6H PRN PRN tablet 04/18/18 Primary Care Physician: Aster Martin MD [Primary Care Provider] - Please follow up with your Primary Care Physician in: next week Test Results: Test results from this visit will be discussed in further detail at your follow-up appointment, if applicable. Please Follow Up With: nephrology When: in 4 weeks
--- NOTE | 2018-04-18 11:34 | DCINST_ITS ---
- Discharge Diagnoses Current Active Problems: Current Active and Chronic Problems (Last Reviewed 04/07/18 @ 13:41 by Reina Perez) Acute kidney injury superimposed on chronic kidney disease (Chronic) You will use the following diet at home:: Calorie/Carbohydrate Controlled (specify 1200, 1400, etc) - 1800 Your food should be the consistency of: Regular Your liquids should be the consistency of: Regular/Thin Discharge Activity: Return to Normal Activity Weight Bearing Status: Full weight bearing Allergies/Adverse Reactions: Allergies furosemide [From Lasix] Allergy (Verified 04/15/18 03:21) Hives Medications to take at Discharge Carvedilol [Coreg] 25 mg PO BID 01/20/18 Fluticasone 0.05% [Flonase Nasal [place]] 2 spray NASAL TID PRN PRN 01/20/18 Gabapentin [Neurontin] 300 mg PO DAILY 01/20/18 Mycophenolate Mofetil 500 mg PO BID 01/20/18 Nifedipine [Nifedipine ER] 60 mg PO BID 01/20/18 Oxycodone HCl [Roxicodone] 5 mg PO BID PRN 01/20/18 Pravastatin [Pravachol] 40 mg PO QHS 01/20/18 Prednisone 5 mg PO DAILY 01/20/18 Tacrolimus Anhydrous [Prograf] 2 mg PO BID 01/20/18 Cyclobenzaprine [Flexeril] 10 mg PO TID PRN #10 tab 01/22/18 Insulin Detemir [Levemir] 32 unit SQ DAILY #1 vial 01/22/18 Insulin Aspart [Novolog Flexpen] 6 units SUBCUT TIDCM 01/27/18 diphenhydramine 25 mg tablet 25 mg PO DAILY PRN PRN 03/04/18 famotidine 20 mg tablet 20 mg PO BID PRN 03/04/18 zolpidem 10 mg tablet 10 mg PO QHS PRN 03/04/18 Cetirizine HCl [Zyrtec] 10 mg PO QHS 04/15/18 Acetaminophen [Tylenol Tablet] 650 mg PO Q6H PRN PRN tablet 04/18/18 Primary Care Physician: Aster Martin MD [Primary Care Provider] - Please follow up with your Primary Care Physician in: next week Test Results: Test results from this visit will be discussed in further detail at your follow- up appointment, if applicable. Please Follow Up With: nephrology When: in 4 weeks
[2018-04-18 12:15] LABS: Bedside Glucose 171 mg/dL (70-110)
[2018-04-18] MEDS: Ondansetron 8 MG Tablet PO (13:12)
--- NOTE | 2018-04-20 10:41 | DS.PCM_ITS ---
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 #8 chronic intermittent nausea and vomiting- probably diabetic gastroparesis #9 intermediate troponin elevation-etiology unclear - Secondary Discharge Diagnosis Chronic Problems (Last Reviewed 04/07/18 @ 13:41 by Reina Perez) Acute kidney injury superimposed on chronic kidney disease (Chronic) Legionnaires' disease (Chronic) History of chronic pancreatitis (Chronic) Neuropathy (Chronic) Kidney disease (Chronic) High cholesterol (Chronic) High blood pressure (Chronic) Diabetes (Chronic) Chronic bronchitis (Chronic) Cataracts, bilateral (Chronic) Anemia (Chronic) Seasonal allergies (Chronic) Hyperglycemia due to type 1 diabetes mellitus (Chronic) Hyperglycemia without ketosis (Chronic) DM type 1 (diabetes mellitus, type 1) (Chronic) 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) Hospital Course and Treatment Operations: None Procedures: None Summary of Care Provided: The patient is a 37 year old F who presented to the emergency room at [facility] with chief complaint of nausea, vomiting, and diarrhea. She complained of generalized weakness. Workup in the emergency room included labs which showed an elevated BUN of 75 with an elevated creatinine of 4.84, troponin was slightly elevated, patient had to have a right internal jugular placed for IV fluids and obtaining of labs. Patient was admitted to PCU with acute kidney injury, her troponins remained elevated in the intermediate range and this was not further investigated and felt to be insignificant as the patient had no complaints of any cardiac symptomology. Patient was seen in consultation by nephrology, her creatinine improved on IV fluids, blood sugars were controlled with sliding scale insulin and her home insulin administration. Patient remained nauseated at times throughout her hospital visit, she was instructed to follow-up at the time of discharge with her PCP regarding possible treatment for diabetic gastroparesis. Patient's blood culture obtained from her right IJ central line became positive for staph epi however, blood cultures obtained peripherally at the same time were negative for any growth and it was felt that the staph epi was a contaminant. Patient showed no signs of a systemic infection during her hospitalization. Her IJ could not be discontinued because nursing staff could not locate a peripheral vein and labs could not be drawn without the use of the IJ. Physical exam: On examination she appeared in good health and spirits. Vital signs as documented. Skin warm and dry and without overt rashes. Neck without JVD. Lungs clear. Heart exam notable for regular rhythm, normal sounds and absence of murmurs, rubs or gallops. Abdomen unremarkable and without evidence of organomegaly, masses, or abdominal aortic enlargement. Extremities nonedematous. Neuro: Cranial nerves II through XII are grossly intact, no focal motor deficits were noted. Psych: Patient was alert and oriented x3, she did not appear anxious or depressed. On 04/18/18, patient was seen and examined felt to be in stable condition for discharge home - Physical Exam Vital Signs Temp Pulse Resp BP Pulse Ox 97.6 F L 75 17 140/65 H 100 04/18/18 09:52 04/18/18 11:16 04/18/18 09:52 04/18/18 09:52 04/18/18 09:52 Oxygen Delivery Method Room Air Weight: 71.4 kg Body Mass Index (BMI) 25.2 Finger Stick Blood Glucose 176 Intake and Output for Last 24 Hours 04/18/18 04/19/18 04/20/18 23:59 23:59 23:59 Intake Total 1755 / 1755 Balance 1755 / 1755 Microbiology Past 72 Hours 04/15/18 07:40 Blood Culture - Final Blood Culture (Wb) - Anticubital Right No growth in 5 days. 04/15/18 05:05 Bacteria Detection (PCR) - Final Blood Culture (Wb) - Central Line Staphylococcus epidermidis Blood Culture - Final Staphylococcus epidermidis 04/15/18 14:10 Urine Culture - Final Urine, Clean Catch Culture exhibits no growth. Laboratory Tests Past 24 Hrs 04/15/18 05:05 Tacrolimus 10.0 Discharge Activity: Return to Normal Activity Weight Bearing Status: Full weight bearing Home Medications: Medications to take at Discharge Carvedilol [Coreg] 25 mg PO BID 01/20/18 Fluticasone 0.05% [Flonase Nasal [place]] 2 spray NASAL TID PRN PRN 01/20/18 Gabapentin [Neurontin] 300 mg PO DAILY 01/20/18 Mycophenolate Mofetil 500 mg PO BID 01/20/18 Nifedipine [Nifedipine ER] 60 mg PO BID 01/20/18 Oxycodone HCl [Roxicodone] 5 mg PO BID PRN 01/20/18 Pravastatin [Pravachol] 40 mg PO QHS 01/20/18 Prednisone 5 mg PO DAILY 01/20/18 Tacrolimus Anhydrous [Prograf] 2 mg PO BID 01/20/18 Cyclobenzaprine [Flexeril] 10 mg PO TID PRN #10 tab 01/22/18 Insulin Detemir [Levemir] 32 unit SQ DAILY #1 vial 01/22/18 Insulin Aspart [Novolog Flexpen] 6 units SUBCUT TIDCM 01/27/18 diphenhydramine 25 mg tablet 25 mg PO DAILY PRN PRN 03/04/18 famotidine 20 mg tablet 20 mg PO BID PRN 03/04/18 zolpidem 10 mg tablet 10 mg PO QHS PRN 03/04/18 Cetirizine HCl [Zyrtec] 10 mg PO QHS 04/15/18 Acetaminophen [Tylenol Tablet] 650 mg PO Q6H PRN PRN tablet 04/18/18 Ondansetron [Zofran] 8 mg PO Q6H PRN PRN #40 tablet 04/18/18 Following Prescrptions Were Given to Patient: Ondansetron [Zofran] 8 mg PO Q6H PRN PRN #40 tablet PRN Reason: Nausea/Vomiting Primary Care Physician: Aster Martin MD [Primary Care Provider] - Please follow up with your Primary Care Physician in: next week Please Follow Up With: Libby Hurtado MD When: in 4 weeks Please Follow Up With: Aster Martin MD When: 1 Week Disposition: Home Minutes spent on discharge:: 32 Patient Condition:: Stable Medical Necessity - Tobacco Use Smoking Status: Former smoker Meaningful Use Info Meaningful Use Diagnoses (Choose all that apply): None applicable Code Visit Inpatient E&M: 18707 Disch Hosp
--- NOTE | 2018-04-21 07:14 | NURSING ---
Right IJ DC'd per order. 2 sutures removed, IJ pulled, tip intact. Pressure applied for 5 minutes. Vaseline gauze applied with 2x2 and Tegaderm applied over top. Instructed to lie flat for 30 minutes. Tolerated with out difficulty.
--- NOTE | 2018-04-21 15:21 | CASEMGMT ---
TERRI PINZON Discharge F/U Phone Call LACE: 13 Strata: 4 Discharge date: 04/18/18 Call date: 04/21/18 Call time: [id number] Duration: 2 minutes Admission dx: NEL, elevated troponins, vomiting Pt states has been doing 'ok and a lot better' since discharge from [facility]. Pt states no questions regarding discharge instructions or medications at this time. Pt states 'now i just need to get with my PCP to get everything squared away.' Pt voices no suggestions for [facility] at this time. Pt states 'You guys did awesome!' Pt voices no further questions/concerns/needs at this time and thanks this RN ALBERTA for call. SStaten TERRI PINZON
== END 2018-04-18 14:46 | disposition home or self-care (01) | DRG 682 ==
LOC: ED 04:18 → PCU 06:47
PROVIDERS: Hospitalist; Internal Medicine Nephrology; Admitting Provider Family Medicine; Emergency Provider Emergency Medicine; Family Provider Internal Medicine; PCP Internal Medicine; Visit Provider Internal Medicine
DX: N17.9 Acute kidney failure, unspecified (principal); E43 Unspecified severe protein-calorie malnutrition; Z94.0 Kidney transplant status; E86.0 Dehydration; E10.22 Type 1 diabetes mellitus with diabetic chronic kidney disease; N18.3 Chronic kidney disease, stage 3 (moderate); I12.9 Hypertensive chronic kidney disease with stage 1 through stage 4 chronic kidney disease, or unspecified chronic kidney disease; E10.43 Type 1 diabetes mellitus with diabetic autonomic (poly)neuropathy; K31.84 Gastroparesis; Z79.4 Long term (current) use of insulin; Z68.25 Body mass index [BMI] 25.0-25.9, adult; Z79.899 Other long term (current) drug therapy; Z87.891 Personal history of nicotine dependence; R74.8 Abnormal levels of other serum enzymes; E78.00 Pure hypercholesterolemia, unspecified; E10.65 Type 1 diabetes mellitus with hyperglycemia
CPT/HCPCS: 36415; 36556; 71045; 80048; 80053; 80061; 80197; 80202; 81001; 82570; 82962; 83605; 83690; 84300; 84484; 84703; 85025; 85027; 85610; 85730; 87040; 87077; 87086; 87149; 87186; 93005; 97802; 99284; J7030; J7040; A4216; C1751; J2405

== ENCOUNTER 2018-06-24 22:02 | Emergency (ER) | payer MEDICARE, SELFPAY ==
[2018-06-24 22:03] VITALS: BP 173/98; PULSE 82; RESP 16; TEMP 37.1; O2SAT 100; BMI 29.9
--- NOTE | 2018-06-24 22:10 | RAD_ITS ---
STUDY: X-RAY - LEFT HAND REASON FOR EXAM: Female, 37 years old. Pain TECHNIQUE: 3 view(s) of the hand. COMPARISON: None. FINDINGS: Normal radiocarpal articulation. Normal distal radioulnar joint. Normal visualized carpal bones. Normal carpal articulations Normal carpometacarpal articulation of the thumb. Normal second through fifth carpometacarpal joints. Normal metacarpi. Normal metacarpophalangeal joint of the thumb. Normal interphalangeal joint of the thumb. Normal proximal and distal phalanges of the thumb. Normal metacarpophalangeal joints of the second through fifth fingers. Normal proximal and distal interphalangeal joints of the second through fifth fingers. Fracture is noted of the middle phalanx of the third finger. There is soft tissue edema of the third finger.. Vascular calcifications. RAD/Hand Min 3 Views IMPRESSION: Middle phalangeal fracture of the third finger. Electronically Signed: Felix Claudio DO at 23:02 EST Tel [phone], Service support ,
--- NOTE | 2018-06-24 22:37 | ED.DCSUM_ITS ---
- ER Visit Summary Date of Service: 06/24/18 Chief Complaint: [] Injury to left long finger History of Present Illness: The patient is a 37 F patient stated she injured her left long finger when she slipped in the kitchen and fell onto it. It happened suddenly. She is having pain in the distal long finger only. Physical Examination: Vital signs reviewed General: Well-nourished well-developed Head: Normocephalic atraumatic Eyes: Pupils equal round and reactive to light extraocular movements intact ENT: TMs clear no hemotympanum no trauma Neck: Nontender full range of motion Cardiovascular: Regular rate rhythm no murmurs normal S1-S2 Respiratory: No distress clear to auscultation bilaterally chest nontender Abdomen: Soft nontender nondistended normal bowel sounds no masses Back: Nontender no CVA tenderness Extremities tenderness to the distal phalanx of the left long finger there is positive angulation deformity noted approximately 10-15 degrees. Pain to palpation with decreased range of motion. No proximal tenderness or other finger tenderness Skin: Normal color no trauma Neuro alert oriented cranial nerves II through XII intact normal strength sensation reflexes Test Results: [] Emergency Department Course and Treatment: [] Given a shot of morphine and x-ray of the injured area obtained. X-ray shows slight ulnar angulation of the middle phalanx of the left long finger distally. This is due to a fracture. Patient will be given a finger splint will follow-up with orthopedics. Will ice and given pain medicine. At this time I do not feel it needs to be due to the fracture pattern of the middle phalanx Treatment Plan: [] Disposition: [] Impression: [] Long finger middle phalanx fracture This note was generated with Medialive dictation software. It may contain incorrect words, spelling, and punctuation that were not noted in review of the chart prior to signing ED Disposition - Plan for ED Patient: Chief Complaint: Upper Extremity Injury Referrals: Aster Martin MD [Primary Care Provider] -
[2018-06-24] MEDS: morphine 8 MG/ML Syringe IM (22:41)
--- NOTE | 2018-06-24 22:41 | ED.DEP ---
ED Disposition - Plan for ED Patient: Disposition: Home or Assisted Living Chief Complaint: Upper Extremity Injury Instructions: ED Fx Finger Closed Prescriptions: Hydrocodone Bitart/Apap 5-325 [[place] 5MG-325MG] 1 tab PO Q6H PRN PRN 3 Days #10 tab PRN Reason: Pain Referrals: Aster Martin MD [Primary Care Provider] - Matt Uribe MD [STAFF PHYSICIAN] -
[2018-06-24 22:56] VITALS: PULSE 93; RESP 20; O2SAT 98
--- NOTE | 2018-06-24 22:57 | ED.RN ---
THIS NURSE REVIEWED D/C INSTRUCTIONS WITH PT. PT VERBALIZED UNDERSTANDING OF INSTRUCTIONS. PT DENIES FURTHER NEEDS OR QUESTIONS AT THIS TIME.
--- OUTSIDE RECORDS SUMMARY | 2018-08-26 23:55 | XMS RPT_ITS ---
:1980 Author Organization OHIP Support Name Relationship Address Phone D Unavailable Unavailable Unavailable MARCE OCONNOR Unavailable [address] + [address] [place] [address] KAYLEEN, ASHLEY Unavailable Unavailable + D Unavailable Unavailable Unavailable MARCE OCONNOR Unavailable [address] + [address] [place] [address] KAYLEEN, ASHLEY Unavailable Unavailable + D Unavailable Unavailable Unavailable MARCE OCONNOR Unavailable [address] [place] [address] KAYLEEN, ASHLEY Unavailable Unavailable + D Unavailable Unavailable Unavailable MARCE OCONNOR Unavailable [address] + [address] [place] [address] KAYLEEN, ASHLEY Unavailable Unavailable + D Unavailable Unavailable Unavailable MARCE OCONNOR Unavailable [address] + [address] [place] [address] KAYLEEN, ASHLEY Unavailable Unavailable + D Unavailable Unavailable Unavailable MARCE OCONNOR Unavailable [address] + [address] [place] [address] KAYLEEN, ASHLEY Unavailable Unavailable + D Unavailable Unavailable Unavailable MARCE OCONNOR Unavailable [address] + [address] [place] [address] KAYLEEN, ASHLEY Unavailable Unavailable + D Unavailable Unavailable Unavailable MARCE OCONNOR Unavailable [address] + [place] [address] KAYLEEN, ASHLEY Unavailable . + ., [place] . [place] Unavailable Unavailable + [place], [place] Unavailable Unavailable + D Unavailable Unavailable Unavailable MARCE OCONNOR Unavailable [address] + [place] [address] KAYLEEN, ASHLEY Unavailable Unavailable + [place], [place] Unavailable Unavailable + [place], [place] Unavailable Unavailable + D Unavailable Unavailable Unavailable MARCE OCONNOR Unavailable [address] + [place] [address] KAYLEEN, ASHLEY Unavailable Unavailable + D Unavailable Unavailable Unavailable MARCE OCONNOR Unavailable [address] + [place] [address] KAYLEEN, ASHLEY Unavailable . + ., [place] . [place] Unavailable Unavailable + [place], [place] Unavailable Unavailable + [place], [place] Unavailable Unavailable + [place], [place] Unavailable Unavailable + D Unavailable Unavailable Unavailable MARCE AMBROSE Unavailable [address] + [place] [address] MOOSE, ANTOINETTE Unavailable Unavailable + D Unavailable Unavailable Unavailable MARCE OCONNOR Unavailable [address] + [place] [address] KAYLEEN, ASHLEY Unavailable . + ., [place] . D Unavailable Unavailable Unavailable MARCE AMBROSE Unavailable [address] + [place] [address] MOOSE, ANTOINTETE Unavailable Unavailable + D Unavailable Unavailable Unavailable MARCE AMBROSE Unavailable [address] + [place] [address] CARLO MCARTHUR Unavailable Unavailable + D Unavailable Unavailable Unavailable MARCE AMBROSE Unavailable [address] + [place] [address] JOSEPH MCARTHURE Unavailable Unavailable + D Unavailable Unavailable Unavailable MARCE AMBROSE Unavailable [address] + [place] [address] JOSEPH MCARTHURE Unavailable Unavailable + D Unavailable Unavailable Unavailable MARCE AMBROSE Unavailable [address] + [place] [address] MOOSE, ANTOINETTE Unavailable Unavailable + D Unavailable Unavailable Unavailable MARCE AMBROSE Unavailable [address] + [place] [address] MOOSE, ANTOINETTE Unavailable Unavailable + D Unavailable Unavailable Unavailable MARCE AMBROSE Unavailable [address] + [place] [address] D Unavailable Unavailable Unavailable MARCE AMBROSE Unavailable [address] + [place] [address] MOOSE, ANTOINETTE Unavailable Unavailable + Care Team Providers Name Role Phone Primay Care Physicia, No Primary Care Unavailable Paintsil, [place] Admitting Unavailable Paintsil, [place] Attending Unavailable Paintsil, [place] Admitting Unavailable Paintsil, [place] Attending Unavailable Primay Care Physicia, No Primary Care Unavailable Paintsil, [place] Consulting Unavailable Paintsil, [place] Admitting Unavailable Paintsil, [place] Attending Unavailable Primay Care Physicia, No Primary Care Unavailable Paintsil, [place] Consulting Unavailable Paintsil, [place] Admitting Unavailable Paintsil, [place] Attending Unavailable Primay Care Physicia, No Primary Care Unavailable Paintsil, [place] Consulting Unavailable Veronica, Efewongbe Primary Care Unavailable Julio Jackson Admitting Unavailable Julio Jackson Attending Unavailable Jonny Calles Consulting Unavailable Jourdan Cam Consulting Unavailable Stephan Dalton Consulting Unavailable Julio Jackson Admitting Unavailable Julio Jackson Attending Unavailable Oleghe, Efewongbe Primary Care Unavailable Julio Jackson Consulting Unavailable Julio Jackson Admitting Unavailable AmariliseJulio Attending Unavailable Oleghe, Efewongbe Primary Care Unavailable Jonny Calles Consulting Unavailable Dorina, Jayaprakash Consulting Unavailable Stan Aden Consulting Unavailable Julio Jackson Consulting Unavailable Julio Jackson Admitting Unavailable Julio Jackson Attending Unavailable Oleghe, Efewongbe Primary Care Unavailable Jonny Calles Consulting Unavailable Dorina, Jayaprakash Consulting Unavailable Stan Aden Consulting Unavailable Julio Jackson Consulting Unavailable Julio Jacksno Admitting Unavailable Georges Zapien D.O. Attending Unavailable Oleghe, Efewongbe Primary Care Unavailable Jonny Calles Consulting Unavailable Dorina, Jayaprakash Consulting Unavailable Stan Aden Consulting Unavailable Julio Jackson Consulting Unavailable Jonny Calles Attending Unavailable Julio Jackson Referring Unavailable Oleghe, Efewongbe Attending Unavailable Oleghe, Efewongbe Referring Unavailable Oleghe, Efewongbe Attending Unavailable Oleghe, Efewongbe Referring Unavailable Oleghe, Efewongbe Primary Care Unavailable Dorina, Jayaprakash Attending Unavailable Oleghe, Efewongbe Primary Care Unavailable Oleghe, Efewongbe Attending Unavailable Oleghe, Efewongbe Referring Unavailable Oleghe, Efewongbe Primary Care Unavailable Garcia Foss Admitting Unavailable River Burks Attending Unavailable Genesis, Aziz Consulting Unavailable Garcia Foss Admitting Unavailable Garcia Foss Attending Unavailable Oleghe, Efewongbe Primary Care Unavailable Garcia Foss Consulting Unavailable Garcia Foss Admitting Unavailable River Burks Attending Unavailable Oleghe, Efewongbe Primary Care Unavailable Bakinges, Aziz Consulting Unavailable River Burks Consulting Unavailable Garcia Foss Admitting Unavailable River Burks Attending Unavailable Oleghe, Efewongbe Primary Care Unavailable Bakhous, Aziz Consulting Unavailable Kimmie, River Consulting Unavailable Garcia Foss Admitting Unavailable River Burks Attending Unavailable Oleghe, Efewongbe Primary Care Unavailable Bakinges, Aziz Consulting Unavailable Kimmie, River Consulting Unavailable Amada Levi Attending Unavailable Oleghe, Efewongbe Primary Care Unavailable Reid Muhammad Attending Unavailable RYAN, KARIS B Admitting Unavailable RYAN, KARIS B Referring Unavailable FREE, TEXT ENTRY Primary Care Unavailable Ameena, Dr. Marleen Sneed Attending Unavailable Trichonas, Dr. Garcia Attending Unavailable Trichonas, Dr. Garcia Referring Unavailable [place], Dr. Pate Admitting Unavailable [place], Dr. Pate Attending Unavailable Ameena, Dr. Marleen Sneed Referring Unavailable Trichonas, Dr. Garcia Attending Unavailable Trichonas, Dr. Garcia Referring Unavailable PROBLEMS PROBLEMS DATE TYPE CONDITION / CODE ATTENDING STATUS SOURCE 06/24/2018 Unknown S62.609A - Fracture Shundry, Active [facility] of unspecified [facility] phalanx of Hospital unspecified finger, Repository initial encounter for closed fracture / S62.609A(ICD-10) 04/14/2018 Unknown A48.1 - Oleghe, Active [place] [facility] disease / Hospital A48.1(ICD-10) Repository 03/04/2018 Unknown E10.9 - Type 1 Oleghe, Active [facility] diabetes mellitus [facility] without Hospital complications / Repository E10.9(ICD-10) 03/04/2018 Unknown H26.9 - Unspecified Oleghe, Active [facility] cataract / [facility] H26.9(ICD-10) Hospital Repository 03/04/2018 Unknown N28.9 - Disorder of Oleghe, Active [facility] kidney and ureter, [facility] unspecified / Hospital N28.9(ICD-10) Repository 03/04/2018 Unknown E78.00 - Pure Oleghe, Active [facility] hypercholesterolemi [facility] a, unspecified / Hospital E78.00(ICD-10) Repository 03/04/2018 Unknown N91.2 - Amenorrhea, Oleghe, Active [place] unspecified / [facility] N91.2(ICD-10) Hospital Repository 02/06/[address] Ameena Active [place] diagnosis complication of [facility] kidney transplant / [place] Rep[facility] T86.10(ICD-10) 02/06/[address] Ameena Active [place] (discharge) complication of [facility] kidney transplant / [place] Rep[facility] T86.10(ICD-10) 02/06/2018 Final diagnosis [facility] Dr. Ameena Active [place] (discharge) disease / [facility] A48.1(ICD-10) [place] Rep[facility] 02/06/2018 Final diagnosis Acute kidney Dr. 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 Ameena Active [place] (discharge) E87.2(ICD-10) [facility] [place] Rep[facility] 02/06/2018 Final diagnosis Chronic kidney Dr. 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 Ameena Active [place] (discharge) use of systemic [facility] steroids / [place] Rep[facility] Z79.52(ICD-10) 02/06/2018 Final diagnosis Type [address] Ameena Active [place] (discharge) mellitus with [facility] hyperglycemia / [place] Rep[facility] E10.65(ICD-10) 02/06/2018 Final diagnosis Intra-abd and Dr. Ameena Active [place] (discharge) pelvic swelling, [facility] mass and lump, unsp [place] Repository site / R19.00(ICD-10) 02/06/2018 Final diagnosis Personal history of Dr. Ameena Active [place] (discharge) nicotine dependence [facility] / Z87.891(ICD-10) [place] Rep[facility] 02/06/[address] Ameena Active [place] (discharge) chronic kidney [facility] disease w stg [place] Rep[facility] 1-4/unsp chr kdny / I12.9(ICD-10) 02/06/2018 Final diagnosis Type [address] Ameena Active [place] (discharge) mellitus w diabetic [facility] chronic kidney [place] Rep[facility] disease / E10.22(ICD-10) 02/06/2018 Final diagnosis Dependence on renal Dr. José Miguel Goldstein (discharge) dialysis / [facility] Z99.2(ICD-10) [place] Rep[facility] 02/06/2018 Final diagnosis Sickle-cell trait / Dr. José Miguel Goldstein (discharge) D57.3(ICD-10) [facility] Repository 02/06/[address] José Miguel Goldstein (discharge) hemorrhage, [facility] unspecified eye / [place] Rep[facility] H43.10(ICD-10) 02/06/2018 Final diagnosis Anorexia / Dr. José Miguel Goldstein (discharge) R63.0(ICD-10) [facility] Repository 02/06/2018 Final diagnosis Body mass index Dr. José Miguel Goldstein (discharge) (BMI) 25.0-25.9, [facility] adult / [place] Rep[facility] Z68.25(ICD-10) 02/06/2018 Final diagnosis Hypoxemia / Dr. José Miguel Goldstein (discharge) R09.02(ICD-10) [facility] Repository 02/06/2018 Final diagnosis Type [address] José Miguel Goldstein (discharge) mellitus with [facility] diabetic [facility] Repository neuropathy, unsp / E10.40(ICD-10) 02/06/2018 Final diagnosis Type [address] José Miguel Goldstein (discharge) mellitus with [facility] diabetic [facility] [facility] nephropathy / E10.21(ICD-10) 02/06/2018 Final diagnosis Type [address] José Miguel Goldstein (discharge) mellitus with [facility] diabetic cataract / [place] Rep[facility] E10.36(ICD-10) 03/05/2018 Unknown A41.9 - Sepsis, Julio Jackson Active [place] unspecified Community organism / Hospital A41.9(ICD-10) Repository 02/05/2018 Unknown J96.01 - Acute StevanJonny robledo Active [place] respiratory failure Community with hypoxia / Hospital J96.01(ICD-10) Repository 02/05/2018 Unknown E10.22 - Type 1 StevanJonny robledo Active [facility] diabetes mellitus Community with diabetic Hospital chronic kidney Repository disease / E10.22(ICD-10) 02/05/2018 Unknown Z94.0 - Kidney StevanJonny robledo Active [facility] transplant status / Community Z94.0(ICD-10) Hospital Repository 02/05/2018 Unknown N18.3 - Chronic StevanJonny robledo Active [place] kidney disease, [facility] stage 3 (moderate) Hospital / N18.3(ICD-10) Repository 02/05/2018 Unknown E10.319 - Type 1 StevanJonny robledo Active [place] diabetes mellitus [facility] with unspecified Hospital diabetic Repository 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 / E10.319(ICD-10) 02/05/2018 Unknown I10 - Essential StevanJonny robledo Active [place] (primary) Community hypertension / Hospital I10(ICD-10) Repository PROCEDURES PROCEDURES DATE CODE DESCRIPTION STATUS SOURCE 02/01/2018 46O54HE(ICD10- 32N37JQ Completed [place] [facility] Repository 01/29/2018 63M36TZ(ICD10- 36J68CP Completed [place] [facility] Repository 01/29/2018 76ZE4DR(ICD10- 28VB7EH Completed [place] [facility] Repository 01/29/2018 49DO6VT(ICD10- 27PB0WQ Completed [place] [facility] Repository RESULTS RESULTS EMERGENCY DEPARTMENT Observed: 06/25/2018 Status: F Source: [place] SUMMARY 5:44 AM [facility] REPOSITORY [facility] Medical Records Department [address] [place] [address] Emergency Department Summary 06/24/18 2236 MR#: [id number] Acct: [id number] Name: BERTRAM AMBROSE Rep #: [id number] : 1980 37 From: Reid Muhammad MD PCP: Aster Martin MD Status: DEP ER - ER Visit Summary Date of Service: 06/24/18 Chief Complaint: [] Injury to left long finger History of Present Illness: The patient is a 37 F patient stated she injured her left long finger when she slipped in the kitchen and fell onto it. It happened suddenly. She is having pain in the distal long finger only. Physical Examination: Vital signs reviewed General: Well-nourished well-developed Head: Normocephalic atraumatic Eyes: Pupils equal round and reactive to light extraocular movements intact ENT: TMs clear no hemotympanum no trauma Neck: Nontender full range of motion Cardiovascular: Regular rate rhythm no murmurs normal S1-S2 Respiratory: No distress clear to auscultation bilaterally chest nontender Abdomen: Soft nontender nondistended normal bowel sounds no masses Back: Nontender no CVA tenderness Extremities tenderness to the distal phalanx of the left long finger there is positive angulation deformity noted approximately 10-15 degrees. Pain to palpation with decreased range of motion. No proximal tenderness or other finger tenderness Skin: Normal color no trauma Neuro alert oriented cranial nerves II through XII intact normal strength sensation reflexes Test Results: [] Emergency Department Course and Treatment: [] Given a shot of morphine and x-ray of the injured area obtained. X-ray shows slight ulnar angulation of the middle phalanx of the left long finger distally. This is due to a fracture. Patient will be given a finger splint will follow-up with orthopedics. Will ice and given pain medicine. At this time I do not feel it needs to be due to the fracture pattern of the middle phalanx Treatment Plan: [] Disposition: [] Impression: [] Long finger middle phalanx fracture This note was generated with Liquid dictation software. It may contain incorrect words, spelling, and punctuation that were not noted in review of the chart prior to signing ED Disposition - Plan for ED Patient: Chief Complaint: Upper Extremity Injury Referrals: Aster Martin MD [Primary Care Provider] - What to do if you have Problems For any increased pain, shortness of breath, bleeding, nausea or vomiting, chest pain, or any unexpected problems, contact your Primary Care Provider. Call [facility] ([phone]) or report to the closest Emergency Room. Call 911 if necessary. 06/25/18 0544 <Electronically signed by Reid Muhammad MD> Date Ried Muhammad MD Cosigner Signature (If Indicated): Date CC: Aster Martin MD DISCHARGE INSTRUCTION Observed: 06/25/2018 Status: F Source: [place] 5:44 AM [facility] Medical Records Department [address] [place] [address] Discharge Instruction 06/24/18 2241 MR#: [id number] Acct: [id number] Name: BERTRAM AMBROSE Rep #: [id number] : 1980 37 From: Reid Muhammad MD PCP: Aster Martin MD Status: DEP ER ED Disposition - Plan for ED Patient: Disposition: Home or Assisted Living Chief Complaint: Upper Extremity Injury Instructions: ED Fx Finger Closed Prescriptions: Hydrocodone Bitart/Apap 5-325 [[place] 5MG-325MG] 1 tab PO Q6H PRN PRN 3 Days #10 tab PRN Reason: Pain Referrals: Aster Martin MD [Primary Care Provider] - Matt Benitez MD [STAFF PHYSICIAN] - What to do if you have Problems For any increased pain, shortness of breath, bleeding, nausea or vomiting, chest pain, or any unexpected problems, contact your Primary Care Provider. Call [facility] ([phone]) or report to the closest Emergency Room. Call 911 if necessary. 06/25/18 0544 <Electronically signed by Reid Muhammad MD> Date Reid Muhammad MD Cosigner Signature (If Indicated): Date CC: Aster Martin MD HAND MIN 3 VIEWS Observed: 06/24/2018 Status: F Source: [place] 10:11 PM [facility] Imaging Services [address] [place] [address] Hand Min 3 Views MR#: [id number] Acct: [id number] Name: BERTRAM AMBROSE Rep #: [id number] : 1980 F 37 From: Felix Claudio DO PCP: Aster Martin MD Status: DEP ER Study: Hand Min 3 Views Date of Exam: 06/24/18 Exam# [id number] Ordering Dr: Reid Muhammad MD STUDY: X-RAY - LEFT HAND REASON FOR EXAM: Female, 37 years old. Pain TECHNIQUE: 3 view(s) of the hand. COMPARISON: None. FINDINGS: Normal radiocarpal articulation. Normal distal radioulnar joint. Normal visualized carpal bones. Normal carpal articulations Normal carpometacarpal articulation of the thumb. Normal second through fifth carpometacarpal joints. Normal metacarpi. Normal metacarpophalangeal joint of the thumb. Normal interphalangeal joint of the thumb. Normal proximal and distal phalanges of the thumb. Normal metacarpophalangeal joints of the second through fifth fingers. Normal proximal and distal interphalangeal joints of the second through fifth fingers. Fracture is noted of the middle phalanx of the third finger. There is soft tissue edema of the third finger.. Vascular calcifications. RAD/Hand Min 3 Views IMPRESSION: Middle phalangeal fracture of the third finger. Electronically Signed: Felix Claudio DO at 23:02 EST Tel [phone], Service support , CC: Aster Martin MD; Reid Muhammad MD Newspaper Photojournalist: Signed DISCHARGE SUMMARY Observed: 04/20/2018 Status: F Source: [place] 10:44 AM [facility] REPOSITORY [facility] Medical Records Department [address] [place] [address] Discharge Summary 04/20/18 1032 MR#: [id number] Acct: [id number] Name: BERTRAM AMBROSE Rep #: [id number] : 1980 37 From: River Burks DO PCP: Aster Martin MD Status: DIS IN Y Location: [place] [id number] ADDENDUM by River Burks DO on 04/20/18 at 1044 Code Visit Additional discharge diagnosis: #10 severe protein and caloric malnutrition 04/20/18 1044 <Electronically signed by River Burks DO> Date River Burks DO cc: Aster Martin MD; River Burks DO * Signed 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 #8 chronic intermittent nausea and vomiting- probably diabetic gastroparesis #9 intermediate troponin elevation-etiology unclear - Secondary Discharge Diagnosis Chronic Problems (Last Reviewed 04/07/18 @ 13:41 by Reina Perez) Acute kidney injury superimposed on chronic kidney disease (Chronic) Legionnaires' disease (Chronic) History of chronic pancreatitis (Chronic) Neuropathy (Chronic) Kidney disease (Chronic) High cholesterol (Chronic) High blood pressure (Chronic) Diabetes (Chronic) Chronic bronchitis (Chronic) Cataracts, bilateral (Chronic) Anemia (Chronic) Seasonal allergies (Chronic) Hyperglycemia due to type 1 diabetes mellitus (Chronic) Hyperglycemia without ketosis (Chronic) DM type 1 (diabetes mellitus, type 1) (Chronic) 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) Hospital Course and Treatment Operations: None Procedures: None Summary of Care Provided: The patient is a 37 year old F who presented to the emergency room at [facility] with chief complaint of nausea, vomiting, and diarrhea. She complained of generalized weakness. Workup in the emergency room included labs which showed an elevated BUN of 75 with an elevated creatinine of 4.84, troponin was slightly elevated, patient had to have a right internal jugular placed for IV fluids and obtaining of labs. Patient was admitted to PCU with acute kidney injury, her troponins remained elevated in the intermediate range and this was not further investigated and felt to be insignificant as the patient had no complaints of any cardiac symptomology. Patient was seen in consultation by nephrology, her creatinine improved on IV fluids, blood sugars were controlled with sliding scale insulin and her home insulin administration. Patient remained nauseated at times throughout her hospital visit, she was instructed to follow-up at the time of discharge with her PCP regarding possible treatment for diabetic gastroparesis. Patient's blood culture obtained from her right IJ central line became positive for staph epi however, blood cultures obtained peripherally at the same time were negative for any growth and it was felt that the staph epi was a contaminant. Patient showed no signs of a systemic infection during her hospitalization. Her IJ could not be discontinued because nursing staff could not locate a peripheral vein and labs could not be drawn without the use of the IJ. Physical exam: On examination she appeared in good health and spirits. Vital signs as documented. Skin warm and dry and without overt rashes. Neck without JVD. Lungs clear. Heart exam notable for regular rhythm, normal sounds and absence of murmurs, rubs or gallops. Abdomen unremarkable and without evidence of organomegaly, masses, or abdominal aortic enlargement. Extremities nonedematous. Neuro: Cranial nerves II through XII are grossly intact, no focal motor deficits were noted. Psych: Patient was alert and oriented x3, she did not appear anxious or depressed. On 04/18/18, patient was seen and examined felt to be in stable condition for discharge home - Physical Exam Vital Signs Temp Pulse Resp BP Pulse Ox 97.6 F L 75 17 140/65 H 100 04/18/18 09:52 04/18/18 11:16 04/18/18 09:52 04/18/18 09:52 04/18/18 09:52 Oxygen Delivery Method Room Air Weight: 71.4 kg Body Mass Index (BMI) 25.2 Finger Stick Blood Glucose 176 Intake and Output for Last 24 Hours Intake Total 1755 / 1755 Balance 1755 / 1755 Microbiology Past 72 Hours 04/15/18 07:40 Blood Culture - Final Blood Culture (Wb) - Anticubital Right No growth in 5 days. 04/15/18 05:05 Bacteria Detection (PCR) - Final Blood Culture (Wb) - Central Line Staphylococcus epidermidis Laboratory Tests Past 24 Hrs Tacrolimus 10.0 Discharge Activity: Return to Normal Activity Weight Bearing Status: Full weight bearing Home Medications: Medications to take at Discharge Carvedilol [Coreg] 25 mg PO BID 01/20/18 Fluticasone 0.05% [Flonase Nasal [place]] 2 spray NASAL TID PRN PRN 01/20/18 Gabapentin [Neurontin] 300 mg PO DAILY 01/20/18 Mycophenolate Mofetil 500 mg PO BID 01/20/18 Nifedipine [Nifedipine ER] 60 mg PO BID 01/20/18 Oxycodone HCl [Roxicodone] 5 mg PO BID PRN 01/20/18 Pravastatin [Pravachol] 40 mg PO QHS 01/20/18 Prednisone 5 mg PO DAILY 01/20/18 Tacrolimus Anhydrous [Prograf] 2 mg PO BID 01/20/18 Cyclobenzaprine [Flexeril] 10 mg PO TID PRN #10 tab 01/22/18 Insulin Detemir [Levemir] 32 unit SQ DAILY #1 vial 01/22/18 Insulin Aspart [Novolog Flexpen] 6 units SUBCUT TIDCM 01/27/18 diphenhydramine 25 mg tablet 25 mg PO DAILY PRN PRN 03/04/18 famotidine 20 mg tablet 20 mg PO BID PRN 03/04/18 zolpidem 10 mg tablet 10 mg PO QHS PRN 03/04/18 Cetirizine HCl [Zyrtec] 10 mg PO QHS 04/15/18 Acetaminophen [Tylenol Tablet] 650 mg PO Q6H PRN PRN tablet 04/18/18 Ondansetron [Zofran] 8 mg PO Q6H PRN PRN #40 tablet 04/18/18 Following Prescrptions Were Given to Patient: Ondansetron [Zofran] 8 mg PO Q6H PRN PRN #40 tablet PRN Reason: Nausea/Vomiting Primary Care Physician: Aster Martin MD [Primary Care Provider] - Please follow up with your Primary Care Physician in: next week Please Follow Up With: Libby Hurtado MD When: in 4 weeks Please Follow Up With: Aster Martin MD When: 1 Week Disposition: Home Minutes spent on discharge:: 32 Patient Condition:: Stable Medical Necessity - Tobacco Use Smoking Status: Former smoker Meaningful Use Info Meaningful Use Diagnoses (Choose all that apply): None applicable Code Visit Inpatient E ABELARDO M: [id number] Disch Hosp 04/20/18 1043 <Electronically signed by River Burks DO> Date River Burks DO Cosigner Signature (if applicable): Date CC: Aster Martin MD; River Burks DO Signed BEDSIDE GLUCOSE Collected: 04/18/2018 Status: F Source: [place] 11:56 AM [facility] REPOSITORY TYPE CODE TESTS RESULT OUT OF REFERENCE UNITS RANGE LAB L501.080 70-110 mg/dL High BEDSIDE GLU 171 Result Comment: MANAGEMENT OF PATIENT CARE PER NURSING PROTOCOL Performed By: #### L501.080 #### [facility] Point of Care [address] [place] [address] DISCHARGE INSTRUCTION Observed: 04/18/2018 Status: F Source: [place] 11:34 AM [facility] REPOSITORY [facility] Medical Records Department [address] [place] [address] Instructions for Home/Discharge Instructions 04/18/18 1130 MR#: [id number] Acct: [id number] Name: BERTRAM AMBROSE Rep #: [id number] : 1980 37 From: River Burks DO PCP: Aster Martin MD Status: ADM IN - Discharge Diagnoses Current Active Problems: Current Active and Chronic Problems (Last Reviewed 04/07/18 @ 13:41 by Reina Perez) Acute kidney injury superimposed on chronic kidney disease (Chronic) You will use the following diet at home:: Calorie/Carbohydrate Controlled (specify 1200, 1400, etc) - 1800 Your food should be the consistency of: Regular Your liquids should be the consistency of: Regular/Thin Discharge Activity: Return to Normal Activity Weight Bearing Status: Full weight bearing Allergies/Adverse Reactions: Allergies furosemide [From Lasix] Allergy (Verified 04/15/18 03:21) Hives Medications to take at Discharge Carvedilol [Coreg] 25 mg PO BID 01/20/18 Fluticasone 0.05% [Flonase Nasal [place]] 2 spray NASAL TID PRN PRN 01/20/18 Gabapentin [Neurontin] 300 mg PO DAILY 01/20/18 Mycophenolate Mofetil 500 mg PO BID 01/20/18 Nifedipine [Nifedipine ER] 60 mg PO BID 01/20/18 Oxycodone HCl [Roxicodone] 5 mg PO BID PRN 01/20/18 Pravastatin [Pravachol] 40 mg PO QHS 01/20/18 Prednisone 5 mg PO DAILY 01/20/18 Tacrolimus Anhydrous [Prograf] 2 mg PO BID 01/20/18 Cyclobenzaprine [Flexeril] 10 mg PO TID PRN #10 tab 01/22/18 Insulin Detemir [Levemir] 32 unit SQ DAILY #1 vial 01/22/18 Insulin Aspart [Novolog Flexpen] 6 units SUBCUT TIDCM 01/27/18 diphenhydramine 25 mg tablet 25 mg PO DAILY PRN PRN 03/04/18 famotidine 20 mg tablet 20 mg PO BID PRN 03/04/18 zolpidem 10 mg tablet 10 mg PO QHS PRN 03/04/18 Cetirizine HCl [Zyrtec] 10 mg PO QHS 04/15/18 Acetaminophen [Tylenol Tablet] 650 mg PO Q6H PRN PRN tablet 04/18/18 Primary Care Physician: Aster Martin MD [Primary Care Provider] - Please follow up with your Primary Care Physician in: next week Test Results: Test results from this visit will be discussed in further detail at your follow-up appointment, if applicable. Please Follow Up With: nephrology When: in 4 weeks 04/18/18 1134 <Electronically signed by River Burks DO> Date River Burks DO CC: Libby Hurtado MD; Aster Martin MD BEDSIDE GLUCOSE Collected: 04/18/2018 Status: F Source: [place] 6:44 AM [facility] REPOSITORY TYPE CODE TESTS RESULT OUT OF REFERENCE UNITS RANGE LAB L501.080 70-110 mg/dL High BEDSIDE GLU 182 Result Comment: MANAGEMENT OF PATIENT CARE PER NURSING PROTOCOL Performed By: #### L501.080 #### [facility] Point of Care [address] [place] [address] BASIC METABOLIC Collected: 04/18/2018 Status: F Source: [place] PROFILE (BMP) 5:50 AM [facility] REPOSITORY Order Comment: SPECIMEN OBTAINED FROM LINE DRAW TYPE CODE TESTS RESULT OUT OF RANGE REFERENCE UNITS LAB L501.0100 74-106 mg/dL High GLU 173 Result Comment: Fasting Glucose result greater than or equal to 126 mg/dL suggests DIABETES MELLITUS per A.D.A. criteria. Please note revised GLUCOSE reference range effective 2017. LAB L501.1000 7-18 mg/dL High BUN 20 LAB L501.1100 0.55-1.02 mg/dL High CREAT,SERUM 2.23 Result Comment: The validity of the calculated GFR AND GFRAA in patients over 70 years has not been determined. Clinical correlation is essential. LAB L501.1110 >60 mL/min Low EST GFR 26 Result Comment: Non- GFR Calc LAB L501.1115 >60 mL/min Low EST GFR - AA 31 Result Comment: GFR Calc LAB L501.1255 ml/min Normal Estimated CRCL 31.71 LAB L501.1300 10-20 RATIO Low BUN/CRE 9.0 LAB L501.2200 8.5-10 mg/dL Low .1 CA 8.1 LAB L501.5300 136-14 mmol/L Normal 5 NA 144 LAB L501.5600 3.5-5. mmol/L Normal 1 K 3.8 LAB L501.5900 98-107 mmol/L High CL 114 LAB L501.6100 21.0-3 mmol/L Normal 2.0 CO2 21.0 LAB L501.6200 5-15 Normal GAP 9 Performed By: #### L500.2500 #### [facility] [address] [place], [address] BEDSIDE GLUCOSE Collected: 04/17/2018 Status: F Source: [place] 9:57 PM [facility] REPOSITORY TYPE CODE TESTS RESULT OUT OF REFERENCE UNITS RANGE LAB L501.080 70-110 mg/dL High BEDSIDE GLU 175 Result Comment: MANAGEMENT OF PATIENT CARE PER NURSING PROTOCOL Performed By: #### L501.080 #### [facility] Point of Care [address] [place] [address] BEDSIDE GLUCOSE Collected: 04/17/2018 Status: F Source: [place] 5:05 PM [facility] REPOSITORY TYPE CODE TESTS RESULT OUT OF REFERENCE UNITS RANGE LAB L501.080 70-110 mg/dL High BEDSIDE GLU 285 Result Comment: MANAGEMENT OF PATIENT CARE PER NURSING PROTOCOL Performed By: #### L501.080 #### [facility] Point of Care [address] [place] [address] BEDSIDE GLUCOSE Collected: 04/17/2018 Status: F Source: [place] 11:45 AM [facility] REPOSITORY TYPE CODE TESTS RESULT OUT OF REFERENCE UNITS RANGE LAB L501.080 70-110 mg/dL High BEDSIDE GLU 176 Result Comment: MANAGEMENT OF PATIENT CARE PER NURSING PROTOCOL Performed By: #### L501.080 #### [facility] Point of Care [address] [place] [address] BEDSIDE GLUCOSE Collected: 04/17/2018 Status: F Source: [place] 6:46 AM [facility] REPOSITORY TYPE CODE TESTS RESULT OUT OF REFERENCE UNITS RANGE LAB L501.080 70-110 mg/dL High BEDSIDE GLU 165 Result Comment: MANAGEMENT OF PATIENT CARE PER NURSING PROTOCOL Performed By: #### L501.080 #### [facility] Point of Care [address] [place] [address] CBC W/DIFF, AUTOMATED Collected: 04/17/2018 Status: F Source: [place] 6:10 AM [facility] REPOSITORY TYPE CODE TESTS RESULT OUT OF RANGE REFERENCE UNITS LAB L100.1000 4.4-11.0 K/mm3 Low WBC 3.2 LAB L100.1200 4.2-5.4 M/mm3 Low RBC 3.79 LAB L100.1300 12.0-15.0 g/dl Low HGB 10.9 LAB L100.1400 37-47 % Low HCT 32.0 LAB L100.1500 81-99 fL Normal MCV 84.4 LAB L100.1600 27.0-32.0 pg Normal MCH 28.8 LAB L100.1700 32-36 g/gl Normal MCHC 34.1 LAB L100.1810 11.6-14.6 % High RDW CV 14.8 LAB L100.1820 35.1-43.9 fl High RDW SD 44.0 LAB L100.1900 150-450 K/mm3 Low PLT 112 LAB L100.2000 6.2-12.0 fl Normal MPV 12.0 LAB L100.2100 47-70 % Normal NEUT% 57.0 LAB L100.2200 19-41 % Normal LY% 24.8 LAB L100.2300 0-10 % High MONO% 13.8 LAB L100.2400 0-5 % Normal EO% 3.8 LAB L100.2500 0-1 % Normal BASO% 0.3 LAB L100.2550 0.0-0.9 % Normal IM GRAN % 0.300 Result Comment: IG% - Immature Granulocytes (promyelocytes, myelocytes and metamyelocytes) > 1% indicates that a LEFT SHIFT is Present. LAB L100.2620 2.0-7.7 X10 3/uL Low Absolute Neut 1.8 LAB L100.2720 0.83-4.51 X10 3/ul Low Absolute Lymph 0.79 Performed By: #### L100.0100 #### [facility] [address] [place], [place], [address] VANCOMYCIN, RANDOM Collected: 04/17/2018 Status: F Source: [place] LEVEL 6:10 AM [facility] REPOSITORY TYPE CODE TESTS RESULT OUT OF REFERENCE UNITS RANGE LAB L501.8850 0.0-15.0 ug/mL High VANCO, RANDOM 15.7 Result Comment: VANCOMYCIN STANDARD DRUG THERAPY: CRITICAL VALUE IS > 15.0 mg/L VANCOMYCIN HIGH INTENSITY THERAPY: CRITICAL VALUE IS > 20.0 mg/L PLEASE CONTACT PHARMACY SERVICES (#[id number]) FOR INTERPRETATION OF RESULTS. THIS RESULT DOES NOT REPRESENT A PEAK OR TROUGH LEVEL FOR THIS DRUG. Performed By: #### L501.8850 #### [facility] [address] [place], [address] BASIC METABOLIC Collected: 04/17/2018 Status: F Source: [place] PROFILE (BMP) 6:10 AM [facility] REPOSITORY TYPE CODE TESTS RESULT OUT OF RANGE REFERENCE UNITS LAB L501.0100 74-106 mg/dL High GLU 184 Result Comment: Fasting Glucose result greater than or equal to 126 mg/dL suggests DIABETES MELLITUS per A.D.A. criteria. Please note revised GLUCOSE reference range effective 2017. LAB L501.1000 7-18 mg/dL High BUN 29 LAB L501.1100 0.55-1.02 mg/dL High CREAT,SERUM 2.32 Result Comment: The validity of the calculated GFR AND GFRAA in patients over 70 years has not been determined. Clinical correlation is essential. LAB L501.1110 >60 mL/min Low EST GFR 25 Result Comment: Non- GFR Calc LAB L501.1115 >60 mL/min Low EST GFR - AA 30 Result Comment: GFR Calc LAB L501.1255 ml/min Normal Estimated CRCL 30.48 LAB L501.1300 10-20 RATIO Normal BUN/CRE 12.5 LAB L501.2200 8.5-10 mg/dL Low .1 CA 8.1 LAB L501.5300 136-14 mmol/L Normal 5 NA 144 LAB L501.5600 3.5-5. mmol/L Normal 1 K 4.1 LAB L501.5900 98-107 mmol/L High CL 114 LAB L501.6100 21.0-3 mmol/L Normal 2.0 CO2 21.0 LAB L501.6200 5-15 Normal GAP 9 Performed By: #### L500.2500 #### [facility] [address] [place], [address] BEDSIDE GLUCOSE Collected: 04/16/2018 Status: F Source: [place] 9:35 PM [facility] REPOSITORY TYPE CODE TESTS RESULT OUT OF REFERENCE UNITS RANGE LAB L501.080 70-110 mg/dL High BEDSIDE GLU 162 Result Comment: MANAGEMENT OF PATIENT CARE PER NURSING PROTOCOL Performed By: #### L501.080 #### [facility] Point of Care [address] [place] [address] BEDSIDE GLUCOSE Collected: 04/16/2018 Status: F Source: [place] 4:18 PM [facility] REPOSITORY TYPE CODE TESTS RESULT OUT OF REFERENCE UNITS RANGE LAB L501.080 70-110 mg/dL High BEDSIDE GLU 347 Result Comment: MANAGEMENT OF PATIENT CARE PER NURSING PROTOCOL Performed By: #### L501.080 #### [facility] Point of Care [address] [place] [address] BEDSIDE GLUCOSE Collected: 04/16/2018 Status: F Source: [place] 11:11 AM [facility] REPOSITORY TYPE CODE TESTS RESULT OUT OF REFERENCE UNITS RANGE LAB L501.080 70-110 mg/dL High BEDSIDE GLU 180 Result Comment: MANAGEMENT OF PATIENT CARE PER NURSING PROTOCOL Performed By: #### L501.080 #### [place] [facility] Point of Care [address] [place], [place] [address] BEDSIDE GLUCOSE Collected: 04/16/2018 Status: F Source: [place] 6:54 AM [facility] REPOSITORY TYPE CODE TESTS RESULT OUT OF REFERENCE UNITS RANGE LAB L501.080 70-110 mg/dL High BEDSIDE GLU 294 Result Comment: MANAGEMENT OF PATIENT CARE PER NURSING PROTOCOL Performed By: #### L501.080 #### [facility] Point of Care [address] [place] [address] CBC-COMPLETE BLOOD CNT Collected: 04/16/2018 Status: F Source: [place] NO DIFF 5:00 AM [facility] REPOSITORY Order Comment: SPECIMEN OBTAINED FROM LINE DRAW TYPE CODE TESTS RESULT OUT OF RANGE REFERENCE UNITS LAB L100.1000 4.4-11.0 K/mm3 Low WBC 3.9 LAB L100.1200 4.2-5.4 M/mm3 Low RBC 3.79 LAB L100.1300 12.0-15.0 g/dl Low HGB 10.7 LAB L100.1400 37-47 % Low HCT 32.4 LAB L100.1500 81-99 fL Normal MCV 85.5 LAB L100.1600 27.0-32.0 pg Normal MCH 28.2 LAB L100.1700 32-36 g/gl Normal MCHC 33.0 LAB L100.1810 11.6-14.6 % High RDW CV 15.1 LAB L100.1820 35.1-43.9 fl High RDW SD 47.5 LAB L100.1900 150-450 K/mm3 Low PLT 99 LAB L100.2000 6.2-12.0 fl Normal MPV 12.0 Performed By: #### L100.0500, L100.4500 #### [facility] [address] [place], [place], [address] DIFFERENTIAL COMMENT Collected: 04/16/2018 Status: F Source: [place] 5:00 AM [facility] REPOSITORY Order Comment: SPECIMEN OBTAINED FROM LINE DRAW TYPE CODE TESTS RESULT OUT OF RANGE REFERENCE UNITS LAB L100.4500 Normal SMEAR COMMENT SCANNED Result Comment: 3+ HYPOCHROMASIA NOTED 2+ MICROCYTOSIS 2+ ANISOCYTOSIS Performed By: #### L100.0500, L100.4500 #### [facility] [address] [facility] [place], [place], [address] COMPREHENSIVE METABOLIC Collected: 04/16/2018 Status: F Source: [facility] 5:00 AM [facility] REPOSITORY Order Comment: SPECIMEN OBTAINED FROM LINE DRAW TYPE CODE TESTS RESULT OUT OF RANGE REFERENCE UNITS LAB L501.0100 74-106 mg/dL High GLU 298 Result Comment: Glucose result greater than or equal to 200 mg/dL suggests DIABETES MELLITUS per A.D.A. criteria. Please note revised GLUCOSE reference range effective 2017. LAB L501.1000 7-18 mg/dL High BUN 52 LAB L501.1100 0.55-1.02 mg/dL High CREAT,SERUM 3.25 Result Comment: The validity of the calculated GFR AND GFRAA in patients over 70 years has not been determined. Clinical correlation is essential. LAB L501.1110 >60 mL/min Low EST GFR 17 Result Comment: Non- GFR Calc LAB L501.1115 >60 mL/min Low EST GFR - AA 20 Result Comment: GFR Calc LAB L501.1255 ml/min Normal Estimated CRCL 21.76 LAB L501.1300 10-20 RATIO Normal BUN/CRE 16.0 LAB L501.1500 6.4-8. g/dL Low 2 T PROT 6.1 LAB L501.1800 3.2-5. g/dL Low 0 ALB 2.8 LAB L501.1950 2.2-4. g/dL Normal 2 GLOB 3.3 LAB L501.2000 0.9-2. RATIO Low 4 A/G 0.8 LAB L501.2200 8.5-10 mg/dL Low .1 CA 7.9 LAB L501.4100 15-37 U/L Normal AST 15 LAB L501.4305 45-117 U/L Low ALK P 42 LAB L501.4405 13-56 U/L Low ALT 11 LAB L501.4600 0.20-1 mg/dL Normal .00 T BILI 0.50 LAB L501.5300 136-14 mmol/L Normal 5 NA 141 LAB L501.5600 3.5-5. mmol/L Normal 1 K 4.6 LAB L501.5900 98-107 mmol/L High CL 113 LAB L501.6100 21.0-3 mmol/L Low 2.0 CO2 19.0 LAB L501.6200 5-15 Normal GAP 9 Performed By: #### L500.4050, L500.4100 #### [facility] [address] [place], [address] LIPID PROFILE Collected: 04/16/2018 Status: F Source: [place] 5:00 AM [facility] REPOSITORY Order Comment: SPECIMEN OBTAINED FROM LINE DRAW TYPE CODE TESTS RESULT OUT OF RANGE REFERENCE UNITS LAB L501.4900 200 mg/dL High CHOL 210 Result Comment: <200 mg/dL Desirable 200-240 mg/dL Borderline >240 mg/dL High Risk LAB L501.5000 mg/dL High TRIG 268 Result Comment: The drugs N-Acetylcysteine and Metamizole may falsely depress this assay. Serum Triglycerides Reference Interval Normal <150 mg/dL Borderline high 150 - 199 mg/dL High 200 - 499 mg/dL Very High > or = 500 mg/dL LAB L501.6400 mg/dL Low HDL 28 Result Comment: The drugs N-Acetylcysteine and Metamizole may falsely depress this assay. Reference Range HDL <40 mg/dL Low HDL Cholesterol HDL >or= 60 mg/dL High HDL Cholesterol LAB L501.6500 0-130 mg/dL Normal LDL 128 LAB L501.6600 5-40 mg/dL High VLDL 54 Performed By: #### L500.4050, L500.4100 #### [facility] [address] [place], [place], [address] BEDSIDE GLUCOSE Collected: 04/15/2018 Status: F Source: [place] 10:31 PM [facility] REPOSITORY TYPE CODE TESTS RESULT OUT OF REFERENCE UNITS RANGE LAB L501.080 70-110 mg/dL High BEDSIDE GLU 318 Result Comment: MANAGEMENT OF PATIENT CARE PER NURSING PROTOCOL Performed By: #### L501.080 #### [facility] Point of Care [address] [place] [address] BEDSIDE GLUCOSE Collected: 04/15/2018 Status: F Source: [place] 4:13 PM [facility] REPOSITORY TYPE CODE TESTS RESULT OUT OF REFERENCE UNITS RANGE LAB L501.080 70-110 mg/dL High BEDSIDE GLU 148 Result Comment: MANAGEMENT OF PATIENT CARE PER NURSING PROTOCOL Performed By: #### L501.080 #### [facility] Point of Care [address] [place] [address] 12 LEAD ELECTROCARDIOGRAM Observed: 04/15/2018 Status: F Source: [place] 3:37 PM [facility] REPOSITORY [facility] Cardiovascular Services [address] [facility] [place] [address] 12 Lead EKG 04/15/18 0348 MR#: [id number] Acct: [id number] Name: BERTRAM AMBROSE Rep #: [id number] : 1980 37 From: Garcia Almaguer MD Attending Dr: River Burks DO Status: ADM IN Ordering Dr: Ronnie Rene MD Date: 04/15/18 Location: U Sex: F AA Admitted: 04/15/18 Test Reason : GEN ILL Blood Pressure : / mmHG Vent. Rate : 086 BPM Atrial Rate : 086 BPM P-R Int : 152 ms QRS Dur : 072 ms QT Int : 394 ms P-R-T Axes : 079 -30 121 degrees QTc Int : 471 ms Normal sinus rhythm Possible Left atrial enlargement Left axis deviation Poor R wave progression Septal CO, age undetermined ST AND T wave abnormality, consider lateral ischemia Prolonged QT Abnormal ECG Confirmed by DONAVON GROSSMAN, GARCIA ([id number]), technical writer and editor ASIM BENITEZ ([id number]) on 04/15/2018 3:37:19 PM Referred By: Aster Martin Confirmed By:GARCIA ALMAGUER MD 04/15/18 1537 Date Garcia Almaguer MD CC: Aster Martin MD; Ronnie Rene MD; River Burks DO Signed URINE SODIUM Collected: 04/15/2018 Status: F Source: [place] 2:10 PM [facility] REPOSITORY TYPE CODE TESTS RESULT OUT OF RANGE REFERENCE UNITS LAB L501.5500 Not Establ. mmol/L Normal UR NA 42 Performed By: #### L501.5500 #### [facility] [address] [place], [place], [address] CREATININE, URINE Collected: 04/15/2018 Status: F Source: [place] 2:10 PM [facility] REPOSITORY TYPE CODE TESTS RESULT OUT OF RANGE REFERENCE UNITS LAB L502.0300 NO RANGE EST. mg/dL Normal URINE 191.00 CREAT Performed By: #### L502.0300 #### [facility] [address] [facility] [place], [address] URINALYSIS, COMPLETE Collected: 04/15/2018 Status: F Source: [place] 2:10 PM [facility] REPOSITORY Order Comment: How was Urine Obtained? BRICK CARRIER TO SPECIFY TYPE CODE TESTS RESULT OUT OF RANGE REFERENCE UNITS LAB L400.3000 Yellow COLOR Normal Yellow LAB L400.3050 Clear Normal CLARITY Sl. Cloudy LAB L400.3200 Normal mg/dl High 50 GLUCOSE, UR LAB L400.3300 Negative mg/dL Normal BILIRUBIN URINE Negative LAB L400.3400 Negative mg/dl High 5 KETONE UR LAB L400.3465 1.002-1.030 Normal SP.GR. DIPSTX 1.020 LAB L400.3550 5.0 - 8.0 pH UR Normal 5.0 LAB L400.3600 Negative mg/dl High PROT DIPSTX 100 LAB L400.3700 Normal mg/dl Normal UROBILI Normal LAB L400.3750 Negative Normal NITRITE UR Negative LAB L400.3780 Negative /ul Normal OCCULT BLOOD-UR Negative LAB L400.3800 Negative /ul LEUK Normal ESTERASE Negative LAB L400.4050 0-5 /hpf WBC 0 Normal SEEN LAB L400.4100 0-5 /hpf 0 Normal RBC-UA SEEN LAB L400.4150 5-10 /hpf SQUAM Normal EPI 0-5 SEEN LAB L400.4300 None Seen /hpf Normal BACTERIA RARE LAB L400.4350 <or=2+ /hpf 0 Normal MUCUS, URINE SEEN Performed By: #### L400.0001 #### [facility] [address] [place], [address] Observed: 04/15/2018 Status: F Source: [place] CULTURE, URINE 2:10 PM [facility] REPOSITORY Order Date: 04/15/18 Urine Culture Culture exhibits no growth. Performed By: #### M100.0650 #### [facility] [address] [place], [address] CONSULTATION Observed: 04/15/2018 Status: F Source: [place] 11:54 AM [facility] REPOSITORY [facility] Medical Records Department [address] [place] [address] Consultation 04/15/18 1131 MR#: [id number] Acct: [id number] Name: BERTRAM AMBROSE Rep #: [id number] : 1980 37 From: Libby Hurtado MD PCP: Aster Martin MD Status: ADM IN Y Location: [place] [address] Problem List (1) Acute kidney injury superimposed on chronic kidney disease Status: Chronic (2) Renal transplant recipient Status: Acute Consultation - Renal PCP/ Referring MD: Requesting physician: [] Primary care physician: Atser Martin MD - History of Present Illness History of Present Illness: The patient is a 37 year old F with a past medical history of dysphagia disease from diabetic nephropathy.atient is status post donor transplant in 2008 at [facility]. Patient has chronic kidney disease from [facility]. baseline creatinine around 1.7 mg/dL. patient is taking CellCept 500 mg twice a day, Prograf 3 mg twice a day, and prednisone 5 mg by mouth daily. Patient presented with complain of 5 days history of nausea vomiting. Patient also started to have diarrhea a day before admission. Renal team was consulted for acute kidney injury. Creatinine is up to 4.8 milligrams per deciliter. Pt is currently on IVF NS at 150 cc/hour. Pt said Zofran has helped nausea / vomiting ROS : 12 systems review is negative except what mentioned in HPI - Allergies Allergies: Allergies furosemide [From Lasix] Allergy (Verified 04/15/18 03:21) Hives - Current Medications Current Medications: Current Medications Carvedilol (Coreg) 25 mg PO BID COUNTS INCLUDE 234 BEDS AT THE [facility] Last Admin: 04/15/18 09:30 Dose: 25 mg Dextrose (D50w Syringe) 0 gm IV X1 PRN; Protocol PRN Reason: Hypoglycemia Famotidine (Pepcid) 20 mg PO DAILY PRN PRN Reason: INDESTION Fluticasone Propionate (Flonase Nasal [place]) 2 spray NASAL TID PRN PRN PRN Reason: ALLERGIES Gabapentin (Neurontin) 300 mg PO Q12H COUNTS INCLUDE 234 BEDS AT THE [facility] Last Admin: 04/15/18 09:30 Dose: 300 mg Glucagon () 1 mg IM .X1 PRN PRN Reason: Hypoglycemia Hydralazine HCl (Apresoline Iv) 20 mg IV Q6H PRN PRN PRN Reason: Hypertensive Emergency Sodium Chloride () 1,000 mls @ 150 mls/hr IV .Q6H40M COUNTS INCLUDE 234 BEDS AT THE [facility] Last Admin: 04/15/18 07:40 Dose: 150 mls/hr Insulin Glargine (Lantus (Bkc)) 30 units SC QHS COUNTS INCLUDE 234 BEDS AT THE [facility] Insulin Human Lispro (Humalog Kwikpen (Bkc)) 0 unit SC ACHS COUNTS INCLUDE 234 BEDS AT THE [facility]; Protocol Magnesium Hydroxide (Milk Of Magnesia) 30 ml PO DAILY PRN PRN Reason: Constipation Mycophenolate Mofetil (Cellcept) 500 mg PO BID COUNTS INCLUDE 234 BEDS AT THE [facility] Last Admin: 04/15/18 09:30 Dose: 500 mg Nifedipine (Procardia Xl) 60 mg PO BID COUNTS INCLUDE 234 BEDS AT THE [facility] Last Admin: 04/15/18 09:30 Dose: 60 mg Nitroglycerin (Nitrostat) 0.4 mg SUBLINGUAL Q5M PRN PRN Reason: CHEST PAIN Nutritional Formula (Lactose Free) (Ensure Clear) 120 ml PO 4X/DAY COUNTS INCLUDE 234 BEDS AT THE [facility] Last Admin: 04/15/18 09:44 Dose: Not Given Ondansetron HCl (Zofran) 4 mg IV Q6H PRN PRN PRN Reason: NAUSEA Oxycodone HCl (Oxyir) 5 mg PO BID COUNTS INCLUDE 234 BEDS AT THE [facility] Last Admin: 04/15/18 09:29 Dose: 5 mg Pravastatin Sodium (Pravachol) 40 mg PO QHS COUNTS INCLUDE 234 BEDS AT THE [facility] Prednisone () 5 mg PO DAILY@0800 COUNTS INCLUDE 234 BEDS AT THE [facility] Last Admin: 04/15/18 09:30 Dose: 5 mg Sodium Chloride () 5 - 30 ml IV UD PRN PRN Reason: SALINE FLUSH Tacrolimus (Prograf) 3 mg PO BID COUNTS INCLUDE 234 BEDS AT THE [facility] Zolpidem Tartrate (Ambien (Generic)) 5 mg PO QHS PRN PRN Reason: SLEEP - Past Medical History Past Medical History (Chronic Problems): Chronic Problems (Last Reviewed 04/07/18 @ 13:41 by Reina Perez) Acute kidney injury superimposed on chronic kidney disease (Chronic) Legionnaires' disease (Chronic) History of chronic pancreatitis (Chronic) Neuropathy (Chronic) Kidney disease (Chronic) High cholesterol (Chronic) High blood pressure (Chronic) Diabetes (Chronic) Chronic bronchitis (Chronic) Cataracts, bilateral (Chronic) Anemia (Chronic) Seasonal allergies (Chronic) Hyperglycemia due to type 1 diabetes mellitus (Chronic) Hyperglycemia without ketosis (Chronic) DM type 1 (diabetes mellitus, type 1) (Chronic) 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) - Past Surgical History Surgical History: appendectomy, - - Status post kidney transplant, poor wound debridement, diverting sigmoid colostomy on 07/06/2017, reversed on 07/07/2017, percutaneous tracheostomy, no longer has, left TMA - Social History Smoking Status: Former smoker - Family History Maternal Family History: Family History (Last Reviewed 04/07/18 @ 13:41 by Reina Perez) Mother Asthma Hypertension Father Myocardial infarction History Items: Diabetes, Hypertension Paternal Family History: Family History (Last Reviewed 04/07/18 @ 13:41 by Reina Perez) Mother Asthma Hypertension Father Myocardial infarction History Items: No pertinent history Patient Problems: Active and Suspected Problems (Last Reviewed 04/07/18 @ 13:41 by Reina Perez) Renal transplant recipient (Acute) - Physical Exam General: Alert, Oriented x3 Oral: Dry Mucosa Neck: Supple, No JVD Lungs: Clear to auscultation, Normal air movement, No rhonchi, No wheeze Cardiovascular: Regular rate, Regular Rhythm, Normal S1, Normal S2 Abdomen: Bowel Sounds Present, Soft, Non Tender Extremities: No clubbing, No cyanosis, No edema Skin: No rashes Musculoskeletal: No Tenderness to Palpation of Joints or Extremities Lymphatic: No Cervical, Supraclavicular, or Inguinal Adenopathy Neurological: Cranial nerves II-XII grossly intact, Neuro grossly intact Vital Signs Temp Pulse Resp BP Pulse Ox 98.3 F 82 18 163/75 H 99 04/15/18 06:54 04/15/18 07:34 04/15/18 06:54 04/15/18 06:54 04/15/18 06:54 Oxygen Delivery Method Room Air Weight: 71.4 kg Body Mass Index (BMI) 25.2 Finger Stick Blood Glucose 176 Laboratory Tests Past 24 Hrs WBC 4.4 RBC 4.85 Hgb 14.1 Hct 40.0 WBC RBC Hgb Assessment/Plan All Active Problems (Last Reviewed 04/07/18 @ 13:41 by Reina Perez) Renal transplant recipient (Acute) Sinusitis (Acute) Amenorrhea (Acute) Severe sepsis (Acute) HCAP (healthcare-associated pneumonia) (Acute) Legionella pneumonia (Acute) Acute respiratory failure with hypoxia (Acute) NEL (acute kidney injury) (Acute) 1- NEL on CKD: CKD is from [facility] Baseline Cr is around 1.7 mg/dL. Pt had recent NEL in January possible from [facility] related to pneumonia. Cr improved to baseline Now Cr is up to 4.8 mg/dL. most probably related to prerenal from dehydration. I agree with volume expansion with IV NS for now Less likely due to acute rejection. No tenderness over the transplanted kidney. Pt has been taking amanda IS medications I will check UA along urine electrolytes Avoid ACEI/ARB Check renal function in am 2- ESRD s/p DDKT in 2008 at [facility] Will continue the same IS of Cellcept 500 BID, prograf 3 mg PO BID and prednisone Will check prograf trough level Renal team will continue to follow Thank you for the consult D/W Dr. Sarath HURTADO MD 04/15/18 6839 <Electronically signed by Libby Hurtado MD> Date Libby Hurtado MD Cosigner Signature (if applicable): Date CC: Libby Hurtado MD; Aster Martin MD Signed BEDSIDE GLUCOSE Collected: 04/15/2018 Status: F Source: [place] 11:22 AM [facility] REPOSITORY TYPE CODE TESTS RESULT OUT OF REFERENCE UNITS RANGE LAB L501.080 70-110 mg/dL High BEDSIDE GLU 186 Result Comment: MANAGEMENT OF PATIENT CARE PER NURSING PROTOCOL Performed By: #### L501.080 #### [facility] Point of Care [address] [place], [place] [id number] TROPONIN-I Collected: 04/15/2018 Status: F Source: [place] 11:05 AM [facility] REPOSITORY Order Comment: 'TROP' Serial specimen #1, #2 or #3: 3 TYPE CODE TESTS RESULT OUT OF RANGE REFERENCE UNITS LAB L501.4010 <0.045 ng/mL High 0.338 TROPONIN-I Result Comment: TROPONIN-I EXPECTED VALUES <0.045 Negative 0.045 - 0.590 Consistent with Cardiac Damage > OR = 0.600 Critical Value Not every elevated troponin is indicative of CO. These values should be used with clinical judgement in examining the patient's clinical picture for diagnosis. To establish a diagnosis of CO versus myocardial injury, there must be a demonstrated rise and/or fall in the troponin values, in addition to ischemic symptoms, EKG changes, new regional wall motion abnormality, and/or angiographical evidence. PLEASE NOTE: REFERENCE RANGES EDITED 17 Performed By: #### L501.4010 #### [facility] [address] [place], [place], [id number] TROPONIN-I Collected: 04/15/2018 Status: F Source: [place] 7:40 AM [facility] REPOSITORY Order Comment: 'TROP' Serial specimen #1, #2 or #3: 2 TYPE CODE TESTS RESULT OUT OF RANGE REFERENCE UNITS LAB L501.4010 <0.045 ng/mL High 0.350 TROPONIN-I Result Comment: TROPONIN-I EXPECTED VALUES <0.045 Negative 0.045 - 0.590 Consistent with Cardiac Damage > OR = 0.600 Critical Value Not every elevated troponin is indicative of CO. These values should be used with clinical judgement in examining the patient's clinical picture for diagnosis. To establish a diagnosis of CO versus myocardial injury, there must be a demonstrated rise and/or fall in the troponin values, in addition to ischemic symptoms, EKG changes, new regional wall motion abnormality, and/or angiographical evidence. PLEASE NOTE: REFERENCE RANGES EDITED 17 Performed By: #### L501.4010 #### [facility] [address] [place], [address] Observed: 04/15/2018 Status: F Source: [place] CULTURE, BLOOD (WB) 7:40 AM [facility] REPOSITORY WAS ORDERED IN ER THEY DID NOT DRAW. SPOKE WITH AIR DIRECTORTERRI WEBER TO DRAW SET WITH NEXT TROPONIN DUE AROUND 0800. BC No growth in 5 days. Performed By: #### M200.1000 #### [facility] [address] [facility] [place], [address] HISTORY AND PHYSICAL Observed: 04/15/2018 Status: F Source: [place] EXAM 6:37 AM [facility] REPOSITORY [facility] Medical Records Department [address] [place] [address] History and Physical 04/15/18 0623 MR#: [id number] Acct: [id number] Name: BERTRAM AMBROSE Rep #: [id number] : 1980 37 From: Garcia Foss MD PCP: Aster Martin MD Status: REG ER Y Location: ED Problem List (1) History of chronic pancreatitis Status: Chronic (2) Kidney disease Status: Chronic (3) High cholesterol Status: Chronic (4) High blood pressure Status: Chronic (5) Diabetes Status: Chronic (6) NEL (acute kidney injury) Status: Acute History of Present Illness Date of Admission: 04/15/18 Chief Complaint: generalized weakness, dehydration The patient is a 37 year old female with a past medical history of type one diabetes who is a kidney transplant recipient presents to the ER with the complaint of generalized weakness with nausea and vomiting. She had been hospitalized recently for legionella pneumonia and sepsis as well. On of last week she states she went to a restaurant and ate chilli there. Soon after, about an hour or so, she felt toxic and began throwing up from evening through till morning. She then rested at home but did not tolerate PO. On Saturday she slept most of the day and again drank or ate very little. On Saturday she was very lighted headed and dizzy and continued feeling nauseated. Her abdomen is sore. She denies chest pain at present. Her creatine is markedly elevated and troponin slightly elevated. She will be admitted to PCU for rehydration and further monitoring. EKG is abnormal but unchanged from EKG in January. 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) Medical History: Medical History (Last Reviewed 04/07/18 @ 13:41 by Reina Perez) Legionnaires' disease (Chronic) A48.1 History of chronic pancreatitis (Chronic) Z87.19 Neuropathy (Chronic) G62.9 Kidney disease (Chronic) N28.9 High cholesterol (Chronic) E78.00 High blood pressure (Chronic) I10 Diabetes (Chronic) E11.9 Chronic bronchitis (Chronic) J42 Cataracts, bilateral (Chronic) H26.9 Anemia (Chronic) D64.9 Seasonal allergies (Chronic) J30.2 Allergies furosemide [From Lasix] Allergy (Verified 04/15/18 03:21) Hives Home Medications: Ambulatory Orders Medication Instructions Recorded Carvedilol [Coreg] 25 mg PO BID 01/20/18 Surgical History: Surgical History (Last Reviewed 04/07/18 @ 13:41 by Reina Perez) History of amputation of toe Z89.429 History of eye surgery Z98.890 Retina History of kidney transplant Z94.0 2011 Surgical History: appendectomy, - - Status post kidney transplant, poor wound debridement, diverting sigmoid colostomy on 07/06/2017, reversed on 07/07/2017, percutaneous tracheostomy, no longer has, left TMA Smoking Status: Former smoker - *Family History Maternal Family History: Family History (Last Reviewed 04/07/18 @ 13:41 by Reina Perez) Mother Asthma Hypertension Father Myocardial infarction History Items: Diabetes, Hypertension Paternal Family History: Family History (Last Reviewed 04/07/18 @ 13:41 by Reina Perez) Mother Asthma Hypertension Father Myocardial infarction History Items: No pertinent history Review of Systems Constitutional: Reports: Malaise, Weakness, Fatigue. Denies: Chills, Fever, Weight Change HEENT: Denies: Head Aches, Sinus Congestion, Sinus Drainage Cardiovascular: Denies: Chest Pain, Palpitations Respiratory: Denies: Cough, Shortness of breath at rest, Sputum production Gastrointestinal: Reports: Abdominal Pain, Nausea, Vomiting Genitourinary: Denies: Dysuria Musculoskeletal: Denies: Joint Pain, Joint Tenderness Skin: Denies: Rash, Wounds Neurological: Denies: Numbness, Tingling, Focal weakness Psychiatric: Denies: Anxiety, Depression, Homicidal Ideations, Suicidal Ideations Hematologic/ Lymphatic: Denies: Easy Bruising, Easy Bleeding VTE Information - Inpt Only VTE Present on Admission: No VTE Mechan Device Prophylaxis: SCD's VTE Pharm Prophylaxis ordered?: No Reason prophylaxis not ordered:: Medical Contraindication - Physical Exam General: Alert, Oriented x3, Cooperative HEENT: Atraumatic, Normocephalic Neck: Supple, Negative Carotid Bruits Lungs: Clear to auscultation, Normal air movement Cardiovascular: Regular rate, Normal S1, Normal S2, No murmurs Abdomen: Bowel Sounds Present, Soft, Tender - diffuse tenderness Extremities: No edema, Capillary Refill Less than 3 Seconds Skin: No rashes Musculoskeletal: No Tenderness to Palpation of Joints or Extremities Neurological: Neuro grossly intact Psych/Mental Status: Normal Affect, Appropriate Vital Signs Temp Pulse Resp BP Pulse Ox 99.0 F 80 16 209/87 H 100 04/15/18 05:15 04/15/18 05:11 04/15/18 05:11 04/15/18 05:11 04/15/18 05:15 Oxygen Delivery Method Room Air Weight: 164 lb 14.492 oz Body Mass Index (BMI) 26.6 Finger Stick Blood Glucose 176 Laboratory Tests Past 24 Hrs WBC 4.4 RBC 4.85 WBC RBC Hgb Hct MCV MCH MCHC RDW RDW Differential Plt Count MPV Immature Gran % (Auto) Neut % (Auto) Lymph % (Auto) Assessment/Plan All Active Problems (Last Reviewed 04/07/18 @ 13:41 by Reina Perez) Sinusitis (Acute) Amenorrhea (Acute) Severe sepsis (Acute) HCAP (healthcare-associated pneumonia) (Acute) Legionella pneumonia (Acute) Acute respiratory failure with hypoxia (Acute) NEL (acute kidney injury) (Acute) Assessment - Acute kidney injury, dehydration secondary to food poisoning (anticipate pre renal) - elevated troponin Plan - admit to PCU - hydration with normal saline - monitor renal function with BMP in am - cycle cardiac markers - hydralazine 20mg IV q 6hrs prn bp >160/100 - initiate sliding scale insulin, start with 1/2 routine basal insulin due to poor po intake status - in afternoon perhaps start liquid diet and advance as tolerated. - zofran prn for nausea - tylenol prn for discomfort (I do not feel narcotics are justified at this time for her diffuse abdominal tenderness) - SCDs for dvt prophylaxis Code Visit Inpatient E AND M: [id number] Init Hosp L3 04/15/18 0637 <Electronically signed by Garcia Foss MD> Date Garcia Foss MD Cosigner Signature: Date (if applicable) CC: Aster Martin MD; Garcia Foss MD Signed EMERGENCY DEPARTMENT Observed: 04/15/2018 Status: F Source: [place] SUMMARY 6:24 AM [facility] REPOSITORY [facility] Medical Records Department [address] [place] [address] Emergency Department Summary 04/15/18 0617 MR#: [id number] Acct: [id number] Name: BERTRAM AMBROSE Rep #: [id number] : 1980 37 From: Ronnie Rene MD PCP: Aster Martin MD Status: REG ER - ER Visit Summary Date of Service: 04/15/18 Chief Complaint: Nausea vomiting and diarrhea History of Present Illness: The patient is a 37 F who complains of nausea vomiting and diarrhea for the past 5-6 days. She complains of generalized weakness. She has had multiple episodes of nonbloody nonbilious emesis and stools. She denies any hematochezia or melena. No fevers chest pain shortness of breath rashes. She does have a history of insulin-dependent diabetes hypertension chronic kidney disease, renal transplant. She states she did have a reading of blood sugar 400 but overall it is been well controlled and her most recent blood sugar check was about 200. Physical Examination: Initial blood pressure 242/117 vitals otherwise normal Moist mucous membranes Heart regular rate and rhythm Lungs are clear Abdomen soft nondistended she does have some diffuse tenderness which is nonfocal no guarding no rebound laparotomy scars noted Alert Cooperative Test Results: EKG shows sinus rhythm at a rate of 86. She does have lateral ST depression and T wave inversions although this appears similar to prior EKG. CBC unremarkable. Chemistries notable for BUN of 75, creatinine 4.84. Hepatic function lipase lactic acid all normal. Troponin elevated at 0.198. negative. Chest x- ray shows mild right effusion or pleural thickening no edema no CHF. Repeat chest x-ray shows a central line to be in good position without pneumothorax. Emergency Department Course and Treatment: Patient was seen shortly after arrival. There was difficulty establishing peripheral IV access. Multiple nursing attempts were made. I also attempted x1 under ultrasound guidance and was unsuccessful. Therefore risks and benefits of central venous catheterization were discussed with the patient including risks of bleeding, infection, pneumothorax. After informed consent of the patient underwent central venous catheterization without any immediate complications. Right IJ was checked with ultrasound prior to procedure. Even when being placed in Trendelenburg she has essentially complete collapse with respiration. Patient was locally anesthetized with 1% lidocaine. Dark red nonpulsatile blood was obtained on first stick. CVC placed under sterile conditions without any apparent immediate complication and postprocedure x-ray shows it to be in good position without pneumothorax. Lab work notable as above for elevation of BUN at 75, creatinine 4.84. Patient notes that her baseline creatinine should be around 2.5. I do believe her acute kidney injury is most likely prerenal related to dehydration. This is also supported by IJ collapse. She was given 2 L of normal saline. She does not have evidence of bacterial infection at this time. She has no leukocytosis fever tachycardia. Her lactic acid is normal. Her troponin is elevated but this is likely related to renal dysfunction. She has no chest pain or shortness of breath. Although she has ischemic changes on her EKG this appears similar to prior. I spoke to nephrology on-call who agreed the patient to be kept here and hydrated and would only require transfer to a transplant center if her creatinine does not improve as expected. I spoke to Dr. Foss the hospitalist and patient will be admitted to PCU. Treatment Plan: [] Disposition: Admit Impression: Acute kidney injury Vomiting Diarrhea Central venous catheter placement This note was generated with Liquid dictation software. It may contain incorrect words, spelling, and punctuation that were not noted in review of the chart prior to signing ED Disposition - Plan for ED Patient: Chief Complaint: Nausea/Vomiting/Diarrhea Referrals: Aster Martin MD [Primary Care Provider] - What to do if you have Problems For any increased pain, shortness of breath, bleeding, nausea or vomiting, chest pain, or any unexpected problems, contact your Primary Care Provider. Call [facility] ([phone]) or report to the closest Emergency Room. Call 911 if necessary. 04/15/18 0624 <Electronically signed by Ronnie Rene MD> Date Ronnie Rene MD Cosigner Signature (If Indicated): Date CC: Aster Martin MD CBC W/DIFF, AUTOMATED Collected: 04/15/2018 Status: F Source: [place] 5:05 AM [facility] REPOSITORY Order Comment: SPECIMEN OBTAINED FROM LINE DRAW TYPE CODE TESTS RESULT OUT OF RANGE REFERENCE UNITS LAB L100.1000 4.4-11.0 K/mm3 Normal WBC 4.4 LAB L100.1200 4.2-5.4 M/mm3 Normal RBC 4.85 LAB L100.1300 12.0-15.0 g/dl Normal HGB 14.1 LAB L100.1400 37-47 % Normal HCT 40.0 LAB L100.1500 81-99 fL Normal MCV 82.5 LAB L100.1600 27.0-32.0 pg Normal MCH 29.1 LAB L100.1700 32-36 g/gl Normal MCHC 35.3 LAB L100.1810 11.6-14.6 % High RDW CV 14.8 LAB L100.1820 35.1-43.9 fl Normal RDW SD 43.8 LAB L100.1900 150-450 K/mm3 Low PLT 146 LAB L100.2000 6.2-12.0 fl High MPV 12.2 LAB L100.2100 47-70 % High NEUT% 71.5 LAB L100.2200 19-41 % Low LY% 17.7 LAB L100.2300 0-10 % Normal MONO% 9.6 LAB L100.2400 0-5 % Normal EO% 0.5 LAB L100.2500 0-1 % Normal BASO% 0.5 LAB L100.2550 0.0-0.9 % Normal IM GRAN % 0.200 Result Comment: IG% - Immature Granulocytes (promyelocytes, myelocytes and metamyelocytes) > 1% indicates that a LEFT SHIFT is Present. LAB L100.2620 2.0-7.7 X10 3/uL Normal Absolute Neut 3.1 LAB L100.2720 0.83-4.51 X10 3/ul Low Absolute Lymph 0.77 Performed By: #### L100.0100 #### [facility] [address] [place], [address] PROTHROMBIN TIME W/INR Collected: 04/15/2018 Status: F Source: [place] 5:05 AM [facility] REPOSITORY Order Comment: SPECIMEN OBTAINED FROM LINE DRAW TYPE CODE TESTS RESULT OUT OF RANGE REFERENCE UNITS LAB L300.4150 11.7-14.9 SECONDS Normal PROTIME 13.9 LAB L300.4200 Normal INR 1.1 Performed By: #### L300.3900, L300.4310 #### [facility] [address] [place], [place], [address] PARTIAL THROMBOPLAST Collected: 04/15/2018 Status: F Source: [facility] 5:05 AM [facility] REPOSITORY Order Comment: SPECIMEN OBTAINED FROM LINE DRAW TYPE CODE TESTS RESULT OUT OF RANGE REFERENCE UNITS LAB L300.4310 24.1-36.2 Seconds Normal PTT 24.9 Performed By: #### L300.3900, L300.4310 #### [facility] [address] [place], [place], [address] COMPREHENSIVE METABOLIC Collected: 04/15/2018 Status: F Source: [place] 5:05 AM [facility] REPOSITORY Order Comment: SPECIMEN OBTAINED FROM LINE DRAW TYPE CODE TESTS RESULT OUT OF RANGE REFERENCE UNITS LAB L501.0100 74-106 mg/dL High GLU 199 Result Comment: Fasting Glucose result greater than or equal to 126 mg/dL suggests DIABETES MELLITUS per A.D.A. criteria. Please note revised GLUCOSE reference range effective 2017. LAB L501.1000 7-18 mg/dL High BUN 75 LAB L501.1100 0.55-1.02 mg/dL High CREAT,SERUM 4.84 Result Comment: The validity of the calculated GFR AND GFRAA in patients over 70 years has not been determined. Clinical correlation is essential. LAB L501.1110 >60 mL/min Low EST GFR 11 Result Comment: Non- GFR Calc LAB L501.1115 >60 mL/min Low EST GFR - AA 13 Result Comment: GFR Calc LAB L501.1255 ml/min Normal Estimated CRCL 14.61 LAB L501.1300 10-20 RATIO Normal BUN/CRE 15.5 LAB L501.1500 6.4-8. g/dL Normal 2 T PROT 7.6 LAB L501.1800 3.2-5. g/dL Normal 0 ALB 3.5 LAB L501.1950 2.2-4. g/dL Normal 2 GLOB 4.1 LAB L501.2000 0.9-2. RATIO Normal 4 A/G 0.9 LAB L501.2200 8.5-10 mg/dL Normal .1 CA 9.2 LAB L501.4100 15-37 U/L Normal AST 16 LAB L501.4305 45-117 U/L Normal ALK P 54 LAB L501.4405 13-56 U/L Normal ALT 14 LAB L501.4600 0.20-1 mg/dL Normal .00 T BILI 0.60 LAB L501.5300 136-14 mmol/L Normal 5 NA 137 LAB L501.5600 3.5-5. mmol/L Normal 1 K 4.4 LAB L501.5900 98-107 mmol/L Normal CL 104 LAB L501.6100 21.0-3 mmol/L Low 2.0 CO2 18.0 LAB L501.6200 5-15 Normal GAP 15 Performed By: #### L500.4050, L501.2450, L501.4010 #### [facility] [address] [facility] [place], [address] LIPASE Collected: 04/15/2018 Status: F Source: [place] 5:05 [facility] REPOSITORY Order Comment: SPECIMEN OBTAINED FROM LINE DRAW TYPE CODE TESTS RESULT OUT OF RANGE REFERENCE UNITS LAB L501.2450 73-393 U/L Normal LIPASE 77 Performed By: #### L500.4050, L501.2450, L501.4010 #### [facility] [address] [facility] [place], [address] TROPONIN-I Collected: 04/15/2018 Status: F Source: [place] 5:05 [facility] REPOSITORY Order Comment: SPECIMEN OBTAINED FROM LINE DRAW TYPE CODE TESTS RESULT OUT OF RANGE REFERENCE UNITS LAB L501.4010 <0.045 ng/mL High 0.198 TROPONIN-I Result Comment: TROPONIN-I EXPECTED VALUES <0.045 Negative 0.045 - 0.590 Consistent with Cardiac Damage > OR = 0.600 Critical Value Not every elevated troponin is indicative of CO. These values should be used with clinical judgement in examining the patient's clinical picture for diagnosis. To establish a diagnosis of CO versus myocardial injury, there must be a demonstrated rise and/or fall in the troponin values, in addition to ischemic symptoms, EKG changes, new regional wall motion abnormality, and/or angiographical evidence. PLEASE NOTE: REFERENCE RANGES EDITED 17 Performed By: #### L500.4050, L501.2450, L501.4010 #### [facility] [address] [facility] [place], [address] LACTIC ACID Collected: 04/15/2018 Status: F Source: [place] 5:05 AM [facility] REPOSITORY Order Comment: SPECIMEN OBTAINED FROM LINE DRAW Yes/No query for Sepsis Lactate Rule Y TYPE CODE TESTS RESULT OUT OF RANGE REFERENCE UNITS LAB L503.6005 0.4-2.0 mmol/L Normal LACTIC ACID 0.8 Performed By: #### L503.6005 #### [facility] [address] [facility] [place], [address] ,SERUM,HCG QUALI. Collected: Status: F Source: [place] 04/15/2018 5:05 AM [facility] REPOSITORY Order Comment: SPECIMEN OBTAINED FROM LINE DRAW TYPE CODE TESTS RESULT OUT OF REFERENCE UNITS RANGE LAB L700.7000 0-9 Nonpreg Negative Normal HCGSQUAL NEGATIVE LAB L700.6700 =>Qualitative mIU/mL Normal HCG Qual < 1 triggr Performed By: #### L700.6800 #### [facility] [address]. [place], [place], [address] Observed: 04/15/2018 Status: F Source: [place] CULTURE, BLOOD (WB) 5:05 AM [facility] REPOSITORY SPECIMEN OBTAINED FROM LINE DRAW BC ANAEROBIC BOTTLE GRAM STAIN: GRAM POSITIVE COCCI RESULTS CALLED TO HERMILA 04/15/18 2256 Claire Castillo. REPORT READ BACK BY SAME. AEROBIC BOTTLE POSITIVE GRAM STAIN= GRAM POSITIVE COCCI IN CLUSTERS CRITICAL VALUE VERIFIED. CALLED TO HERMILA LAUREN 04/16/18 0213 Valarie Tafoya. RESULTS READ BACK BY SAME . ORGANISM 1: Staphylococcus epidermidis Amount Growth Growth Staphylococcus epidermidis: REACTION Benzylpenicillin NF >=0.5 R Cefoxitin *NF - Clindamycin $$ >=8 R Inducable Clindamycin Resistan - Erythromycin $ >=8 R Gentamicin $ <=0.5 S Levofloxacin $ 4 I Linezolid $$$$ 1 S Oxacillin NF <=0.25 S Tigecycline $$$$ <=0.12 S Rifampin $$ <=0.5 S Tetracycline NF <=1 S Vancomycin $ 2 S (NF) indicates non-formulary drug at [facility]. Approval by Infectious Disease Specialist required before non-formulary drugs may be ordered and/or dispensed. * CLSI guidelines does not recommend testing of cephalosporins. This interpretation is deduced from Beta-lactam/penicillin results. Performed By: #### M200.1000, M100.636 #### [facility] [address] [place], [address] Observed: 04/15/2018 Status: F Source: [facility] GPC ID [id number] [facility] REPOSITORY SPECIMEN OBTAINED FROM LINE DRAW GPC ID Staphylococcus sp. Staphylococcus epidermidis Enterococcus sp. Not Detected Streptococcus spp. Not Detected Listeria spp Not Detected Brittany/vanB Not Detected mecA Not Detected NAAT METHOD Testing was performed using nucleic acid amplification ORGANISM 1: Staphylococcus epidermidis Performed By: #### M200.1000, M100.636 #### [facility] [address] [place], [address] TACROLIMUS (PROGRAF) Collected: 04/15/2018 Status: F Source: [place] 5:05 AM [facility] REPOSITORY Order Comment: Comments: supposed to be prograf trough level TYPE CODE TESTS RESULT OUT OF RANGE REFERENCE UNITS LAB L3380.1100 2.0-20.0 ng/mL Normal TACROLIMUS 10.0 Result Comment: Trough (immediately following transplant) 15.0 Trough (steady state, 2 weeks or more after transplant): 3.0 - 8.0 Detection Limit = 1.0 Performed by LC-MS/MS technology. Performed at: [address] [id number] Senior Project Manager Engineering: Alysha Romo MD, Phone: [phone] Performed By: #### L3380.1000 #### [facility] (refer to report for specific site) refer to report for address and phone number CXR FOR LINE PLACEMENT Observed: 04/15/2018 Status: F Source: [place] 4:55 AM [facility] REPOSITORY [facility] Imaging Services [address] [place] [address] CXR for Line Placement MR#: [id number] Acct: [id number] Name: BERTRAM AMBROSE Rep #: [id number] : 1980 F 37 From: Eleni Quintanilla MD PCP: Aster Martin MD Status: REG ER Study: CXR for Line Placement Date of Exam: 04/15/18 Exam# [id number] Ordering Dr: Ronnie Rene MD STUDY: X-RAY CHEST REASON FOR EXAM: Female, 37 years old. Central line placement TECHNIQUE: Single AP portable view of the chest. COMPARISON: 04/15/2018 0344 hours. FINDINGS: Right internal jugular venous access catheter with tip over the superior vena cava in good position. There is no demonstrated pneumothorax. The lungs are clear and expanded. There is no demonstrated pleural abnormality. Normal size heart. Normal mediastinum and yue. Normal visualized pulmonary arteries. Normal visualized aortic arch and descending thoracic aorta. Normal visualized thoracic spine. Normal visualized ribs, clavicles, and shoulders. There is no demonstrated abnormality of the visualized soft tissue structures of the upper abdomen. RAD/CXR for Line Placement IMPRESSION: Central line in good position, no pneumothorax. Previously seen mild blunting of the costophrenic angle not visualized on current exam. Electronically Signed: Eleni Quintanilla MD at 6:06 EST , Service support , CC: Aster Martin MD; Ronnie Rene MD Newspaper Photojournalist: Signed CHEST 1 VIEW Observed: 04/15/2018 Status: F Source: [place] (PORTABLE) 3:39 AM [facility] REPOSITORY [facility] Imaging Services [address] [place] [address] Chest 1 View (Portable) MR#: [id number] Acct: [id number] Name: BERTRAM AMBROSE Rep #: [id number] : 1980 F 37 From: Eleni Quintanilla MD PCP: Aster Martin MD Status: PRE ER Study: Chest 1 View (Portable) Date of Exam: 04/15/18 Exam# [id number] Ordering Dr: Ronnie Rene MD STUDY: X-RAY CHEST REASON FOR EXAM: Female, 37 years old. Nausea and vomiting TECHNIQUE: Single AP portable view of the chest. COMPARISON: 01/27/2018 FINDINGS: Resolution of previous right upper lobe and left perihilar parenchymal opacification. The lungs are clear and expanded. Mild blunting of the right costophrenic angle. Normal size heart. Normal mediastinum and yue. Normal visualized pulmonary arteries. Normal visualized aortic arch and descending thoracic aorta. Normal visualized thoracic spine. Normal visualized ribs, clavicles, and shoulders. There is no demonstrated abnormality of the visualized soft tissue structures of the upper abdomen. RAD/Chest 1 View (Portable) IMPRESSION: Mild right pleural effusion or pleural thickening. No pulmonary edema, congestive heart failure or confluent pneumonia. Electronically Signed: Eleni Quintanilla MD at 3:55 EST , Service support , CC: Aster Martin MD; Ronnie Rene MD Newspaper Photojournalist: Signed INTERNAL MEDICINE Observed: 04/08/2018 Status: F Source: [place] OFFICE VISIT 4:53 PM [facility] Internal [facility] [place] [address] [place] [address] OFFICE VISIT Date of Service: 04/07/18 MR#: [id number] Acct: [id number] Name: BERTRAM AMBROSE Rep #: [id number] : 1980 Provider: Aster Martin MD Age/Sex: 37/F Location: [facility] Status: Signed Intake Vital Signs04/07/18 Height 5 ft 6.5 in Intake Visit Reasons: 1 MO FU Chief Complaint: follow-up visit Is patient in pain?: No Allergies furosemide [From Lasix] Allergy (Verified 03/04/18 14:04) Hives Medications Carvedilol [Coreg] 25 mg PO BID 01/20/18 [History Confirmed 03/04/18] Fluticasone 0.05% [Flonase Nasal [place]] 2 spray NASAL TID PRN PRN 01/20/18 [History Confirmed 03/04/18] Gabapentin [Neurontin] 300 mg PO Q12H 01/20/18 [History Confirmed 03/04/18] Mycophenolate Mofetil 500 mg PO BID 01/20/18 [History Confirmed 03/04/18] Nifedipine [Nifedipine ER] 60 mg PO BID 01/20/18 [History Confirmed 03/04/18] Oxycodone HCl [Roxicodone] 5 mg PO BID 01/20/18 [History Confirmed 03/04/18] Pravastatin [Pravachol] 40 mg PO QHS 01/20/18 [History Confirmed 03/04/18] Prednisone 5 mg PO DAILY 01/20/18 [History Confirmed 03/04/18] Tacrolimus Anhydrous [Prograf] 1 mg PO BID 01/20/18 [History Confirmed 03/04/18] Cyclobenzaprine [Flexeril] 10 mg PO TID PRN #10 tab 01/22/18 [Rx Confirmed 03/04/18] Insulin Detemir [Levemir] 32 unit SQ DAILY #1 vial 01/22/18 [Rx Confirmed 03/04/18] Insulin Aspart [Novolog Flexpen] 6 units SUBCUT TIDCM 01/27/18 [History Confirmed 03/04/18] diphenhydramine 25 mg tablet 25 mg PO QODAY PRN 03/04/18 [History Confirmed 03/04/18] famotidine 20 mg tablet 20 mg PO BID PRN 03/04/18 [History Confirmed 03/04/18] zolpidem 10 mg tablet 10 mg PO QHS PRN 03/04/18 [History Confirmed 03/04/18] Is last menstrual period known: Yes [facility] Medical History Legionnaires' disease (Chronic) History of chronic pancreatitis (Chronic) Neuropathy (Chronic) Kidney disease (Chronic) High cholesterol (Chronic) High blood pressure (Chronic) Diabetes (Chronic) Chronic bronchitis (Chronic) Cataracts, bilateral (Chronic) Anemia (Chronic) Seasonal allergies (Chronic) Surgical History History of amputation of toe (Acute) History of eye surgery (Acute) History of kidney transplant (Acute) Family History Mother Asthma Hypertension Father Myocardial infarction Social History Smoking Status: Former smoker how long ago did patient quit smokin alcohol intake: never substance use type: does not use HPI HPI Chief Complaint: follow-up visit Details: BERTRAM AMBROSE, is a 37yo F who presents to the office today for follow-up. She was seen a couple of weeks ago as a hospital follow-up for Legionella pneumonia. She has done well. No concerns at this time. She reports nasal congestion and increased postnasal drip. Prior history of sinusitis. No fever or chills mild headache. She states that her blood sugars are better controlled however, she again did not bring in her blood sugar log. ROS Const Constitutional: Positive for headache(s); no weight change, body ache, chills, fatigue, sleep problems, fever(s), change in appetite, snoring, weakness, frequent falls or excessive sweating Eyes Eyes: No change in vision, eye pain, light sensitivity or blurry vision ENT ENT: Positive for headache(s), nasal congestion, nasal discharge and sinus pressure; no abnormal hearing, ear pain, tinnitus or neck pain Resp Respiratory: No snoring, cough, shortness of breath or wheezing Cardio Cardiology: No excessive sweating, chest pain at rest, chest pain with exertion, shortness of breath, dyspnea on exertion, palpitations, orthopnea or lightheadedness Gastro GI: No abdominal pain, change in bowel habits, constipation, diarrhea, vomiting, nausea/dyspepsia or cramping Genitourinary-Female: No burning urination, painful urination, urinary incontinence, urinary frequency, abnormal vaginal bleeding, pelvic pain or other Musc Musculoskeletal: No neck pain, abnormal walking, joint pain, back pain, limited range of motion, numbness, tingling or muscle weakness Skin Skin: No redness, dry skin, itching, lesions, wounds or rash Neuro Neurology: Positive for headache(s); no weakness, frequent falls, abnormal hearing, abnormal walking, numbness, tingling, abnormal speech, dizziness or memory loss Psych Psychiatric: No change in appetite, No memory loss, No anxiety, No depression, No Thoughts of harming yourself/Others Endo Endocrine: No fatigue, excessive sweating, cold intolerance, increased thirst/drinking, heat intolerance, flushing or increased hunger Aller/Imm Allergy/Immunologic: No wheezing, itchy eyes, hives or seasonal allergy symptoms Blaise/Lymp Hematologic/Lymphatic: No easy bleeding, easy bruising or enlarged lymph nodes Exam Const General: cooperative, no acute distress Orientation: alert, awake, oriented x3 HENMT Head: atraumatic, normocephalic Ears: hearing grossly normal bilaterally Resp Effort AND Inspection: normal respiratory effort, able to speak in complete sentences Auscultation: Bilateral: Clear to Auscultation Cardio Rate: regular rate Rhythm: regular rhythm Heart Sounds: S1 normal, S2 normal GI Palpation: soft (Not tender.) Musc Musculoskeletal: No muscle weakness Neuro General: alert, awake, oriented x3, moves all extremities, CN's II-XI intact bilaterally Extrem Other: Left lower extremity and pedal edema extending to the wilkes Psych Appearance: grossly normal Mental Status: mental status grossly normal Mood: congruent mood Affect: normal affect Assessment AND Plan 1. Sinusitis J32.9 Plan Acute. Possibly viral. Flonase and Tylenol. Increased fluid intake and rest also recommended. Advised to call with worsening concerns or symptoms. 2. Type 1 diabetes mellitus with diabetic neuropathy E10.40 Plan Patient reports better control. Does not bring in her log. Scheduled to follow-up with endocrinology on 01 July. Has followed up with podiatry. Continue current management. 3. Amenorrhea N91.2 Plan Resolved. test negative. Will monitor. This note was generated with SeeSpaceation software. It may contain incorrect words, spelling, and punctuation that were not noted in checking the note before signing. Coding Level of Care Code Off vis,est,level 3 Diagnoses Sinusitis J32.9 Type 1 diabetes mellitus with diabetic neuropathy E10.40 Diabetes mellitus complication status: with neurologic complications Diabetes mellitus complication detail: with unspecified neuropathy Amenorrhea N91.2 04/08/18 1893 <Electronically signed by Aster Martin MD> Date Aster Martin MD Cosigner Signature: Date (if applicable) CC: ,URINE Collected: 03/07/2018 Status: F Source: [place] 7:22 AM [facility] REPOSITORY TYPE CODE TESTS RESULT OUT OF REFERENCE UNITS RANGE LAB L400.8000 Negative Normal HCGUQUAL Negative Result Comment: Very dilute urine specimens, as indicated by a low specific gravity, may not contain car sales representative levels of hCG. If is still suspected, a first morning urine specimen should be collected 48 hours later and tested. Performed By: #### L400.7600 #### [facility] [address] [address] [place], [place], [address] #### L3380.1000 #### [facility] (refer to report for specific site) refer to report for address and phone number TACROLIMUS (PROGRAF) Collected: 03/07/2018 Status: F Source: [place] 7:22 AM [facility] REPOSITORY TYPE CODE TESTS RESULT OUT OF RANGE REFERENCE UNITS LAB L3380.1100 2.0-20.0 ng/mL Normal TACROLIMUS 3.8 Result Comment: Trough (immediately following transplant) 15.0 Trough (steady state, 2 weeks or more after transplant): 3.0 - 8.0 Detection Limit = 1.0 Performed by LC-MS/MS technology. Performed at: [facility] [id number] Senior Project Manager Engineering: Rufino Goss MD, Phone: [phone] Performed By: #### L400.7600 #### [facility] [address] [place], [address] #### L3380.1000 #### [facility] (refer to report for specific site) refer to report for address and phone number CBC W/DIFF, AUTOMATED Collected: 03/07/2018 Status: F Source: [place] 7:22 AM [facility] REPOSITORY TYPE CODE TESTS RESULT OUT OF RANGE REFERENCE UNITS LAB L100.1000 4.4-11.0 K/mm3 Low WBC 3.1 LAB L100.1200 4.2-5.4 M/mm3 Low RBC 3.54 LAB L100.1300 12.0-15.0 g/dl Low HGB 10.2 LAB L100.1400 37-47 % Low HCT 30.8 LAB L100.1500 81-99 fL Normal MCV 87.0 LAB L100.1600 27.0-32.0 pg Normal MCH 28.8 LAB L100.1700 32-36 g/gl Normal MCHC 33.1 LAB L100.1810 11.6-14.6 % High RDW CV 17.8 LAB L100.1820 35.1-43.9 fl High RDW SD 55.1 LAB L100.1900 150-450 K/mm3 Normal PLT 191 LAB L100.2000 6.2-12.0 fl Normal MPV 11.4 LAB L100.2100 47-70 % Normal NEUT% 60.4 LAB L100.2200 19-41 % Normal LY% 25.9 LAB L100.2300 0-10 % High MONO% 11.1 LAB L100.2400 0-5 % Normal EO% 2.3 LAB L100.2500 0-1 % Normal BASO% 0.3 LAB L100.2550 0.0-0.9 % Normal IM GRAN % 0.000 Result Comment: IG% - Immature Granulocytes (promyelocytes, myelocytes and metamyelocytes) > 1% indicates that a LEFT SHIFT is Present. LAB L100.2620 2.0-7.7 X10 3/uL Low Absolute Neut 1.8 LAB L100.2720 0.83-4.51 X10 3/ul Low Absolute Lymph 0.79 Performed By: #### L100.0100 #### [facility] [address] [place], [address] COMPREHENSIVE METABOLIC Collected: 03/07/2018 Status: F Source: [place] 7:22 AM [facility] REPOSITORY Order Comment: Comments: Fasting Comments: Fasting TYPE CODE TESTS RESULT OUT OF RANGE REFERENCE UNITS LAB L501.0100 74-106 mg/dL Normal GLU 81 Result Comment: Please note revised GLUCOSE reference range effective 2017. LAB L501.1000 7-18 mg/dL High BUN 23 LAB L501.1100 0.55-1.02 mg/dL High CREAT,SERUM 1.71 Result Comment: The validity of the calculated GFR AND GFRAA in patients over 70 years has not been determined. Clinical correlation is essential. LAB L501.1110 >60 mL/min Low EST GFR 35 Result Comment: Non- GFR Calc LAB L501.1115 >60 mL/min Low EST GFR - AA 43 Result Comment: GFR Calc LAB L501.1300 10-20 RATIO Normal BUN/CRE 13.5 LAB L501.1500 6.4-8.2 g/dL T Normal PROT 7.7 LAB L501.1800 3.2-5.0 g/dL Normal ALB 3.5 LAB L501.1950 2.2-4.2 g/dL Normal GLOB 4.2 LAB L501.2000 0.9-2.4 RATIO Low A/G 0.8 LAB L501.2200 8.5-10.1 mg/dL CA Normal 8.7 LAB L501.4100 15-37 U/L Low AST 10 LAB L501.4305 45-117 U/L Normal ALK P 57 LAB L501.4405 13-56 U/L Normal ALT 13 LAB L501.4600 0.20-1.00 mg/dL T Normal BILI 0.40 LAB L501.5300 136-145 mmol/L NA Normal 141 LAB L501.5600 3.5-5.1 mmol/L K Normal 4.2 LAB L501.5900 98-107 mmol/L High CL 110 LAB L501.6100 21.0-32.0 mmol/L Normal CO2 23.0 LAB L501.6200 5-15 Normal GAP 8 Performed By: #### L500.4050, L500.4100 #### [facility] [address] [place], [address] LIPID PROFILE Collected: 03/07/2018 Status: F Source: [place] 7:22 AM [facility] REPOSITORY Order Comment: Comments: Fasting Comments: Fasting TYPE CODE TESTS RESULT OUT OF RANGE REFERENCE UNITS LAB L501.4900 200 mg/dL Normal CHOL 182 Result Comment: <200 mg/dL Desirable 200-240 mg/dL Borderline >240 mg/dL High Risk LAB L501.5000 mg/dL Normal TRIG 97 Result Comment: The drugs N-Acetylcysteine and Metamizole may falsely depress this assay. Serum Triglycerides Reference Interval Normal <150 mg/dL Borderline high 150 - 199 mg/dL High 200 - 499 mg/dL Very High > or = 500 mg/dL LAB L501.6400 mg/dL Normal HDL 54 Result Comment: The drugs N-Acetylcysteine and Metamizole may falsely depress this assay. Reference Range HDL <40 mg/dL Low HDL Cholesterol HDL >or= 60 mg/dL High HDL Cholesterol LAB L501.6500 0-130 mg/dL Normal LDL 109 LAB L501.6600 5-40 mg/dL Normal VLDL 19 Performed By: #### L500.4050, L500.4100 #### [facility] [address] [place], [address] MICROALB:CREAT Collected: 03/07/2018 Status: F Source: [place] RATIO,RANDOM UR 7:22 AM [facility] REPOSITORY TYPE CODE TESTS RESULT OUT OF RANGE REFERENCE UNITS LAB L501.1200 NO RANGE EST. mg/dL Normal UR CREAT 86.10 LAB L502.0500 NO RANGE EST. mg/L Normal 598.0 MICROALBUMIN ,UR LAB L502.0600 <30 mg/g CRE mg/g CRE High 694.5 MALB:CREAT Performed By: #### L502.0250 #### [facility] [address] [place], [address] INTERNAL MEDICINE Observed: 03/06/2018 Status: F Source: [place] OFFICE VISIT 6:03 PM [facility] REPOSITORY [facility] [address] [place] [address] [place] [address] OFFICE VISIT Date of Service: 03/04/18 MR#: [id number] Acct: [id number] Name: BERTRAM AMBROSE Rep #: [id number] : 1980 Provider: Aster Martin MD Age/Sex: 37/F Location: [facility] Status: Signed Intake Vital Signs03/04/18 Height 5 ft 6.5 in 03/04/18 Weight: 163 lb 03/04/18 Body Mass Index (BMI) 25.9 03/04/18 Blood Pressure 144/70 H Intake Visit Reasons: EST PCP Chief Complaint: Est PCP Is patient in pain?: No Allergies furosemide [From Lasix] Allergy (Verified 03/04/18 14:04) Hives Medications Carvedilol [Coreg] 25 mg PO BID 01/20/18 [History Confirmed 03/04/18] Fluticasone 0.05% [Flonase Nasal [place]] 2 spray NASAL TID PRN PRN 01/20/18 [History Confirmed 03/04/18] Gabapentin [Neurontin] 300 mg PO Q12H 01/20/18 [History Confirmed 03/04/18] Mycophenolate Mofetil 500 mg PO BID 01/20/18 [History Confirmed 03/04/18] Nifedipine [Nifedipine ER] 60 mg PO BID 01/20/18 [History Confirmed 03/04/18] Oxycodone HCl [Roxicodone] 5 mg PO BID 01/20/18 [History Confirmed 03/04/18] Pravastatin [Pravachol] 40 mg PO QHS 01/20/18 [History Confirmed 03/04/18] Prednisone 5 mg PO DAILY 01/20/18 [History Confirmed 03/04/18] Tacrolimus Anhydrous [Prograf] 1 mg PO BID 01/20/18 [History Confirmed 03/04/18] Cyclobenzaprine [Flexeril] 10 mg PO TID PRN #10 tab 01/22/18 [Rx Confirmed 03/04/18] Insulin Detemir [Levemir] 32 unit SQ DAILY #1 vial 01/22/18 [Rx Confirmed 03/04/18] Insulin Aspart [Novolog Flexpen] 6 units SUBCUT TIDCM 01/27/18 [History Confirmed 03/04/18] diphenhydramine 25 mg tablet 25 mg PO QODAY PRN 10/02/18 [History Confirmed 03/04/18] famotidine 20 mg tablet 20 mg PO BID PRN 03/04/18 [History Confirmed 03/04/18] zolpidem 10 mg tablet 10 mg PO QHS PRN 03/04/18 [History Confirmed 03/04/18] PFSH Medical History Legionnaires' disease (Chronic) History of chronic pancreatitis (Chronic) Neuropathy (Chronic) Kidney disease (Chronic) High cholesterol (Chronic) High blood pressure (Chronic) Diabetes (Chronic) Chronic bronchitis (Chronic) Cataracts, bilateral (Chronic) Anemia (Chronic) Seasonal allergies (Chronic) Surgical History History of amputation of toe (Acute) History of eye surgery (Acute) History of kidney transplant (Acute) Family History Mother Asthma Hypertension Father Myocardial infarction Social History Smoking Status: Former smoker HPI HPI Chief Complaint: Est PCP Details: BERTRAM AMBROSE, is a 37yo F who presents to the office today for follow-up status post hospital admission and to establish care. She has an eventful past medical history including a history of type 1 diabetes mellitus, end-stage kidney disease status post renal transplant, necrotizing fasciitis, hypertension, hyperlipidemia and most recent hospital admission for sepsis secondary to legionella pneumonia. Initially admitted it was the hospital, she was transferred to [facility] due to a history of renal transplant in acute on chronic kidney disease. She has done well since hospital discharge. Shortness of breath has improved. She denies chills, fever or otherwise feeling of unwell. She moved to [place] from [place] and is yet to establish care here. A1c done during hospital stay of 12. She reports compliance with her medications. She however is concerned about amenorrhea. She states very regular. However last menstrual. Was said to be in January. ROS Const Constitutional: No fatigue, fever(s), frequent falls, malaise, weakness, sleep problems or change in appetite Eyes Eyes: No blurry vision, change in vision, double vision, discharge or visual disturbances ENT ENT: Positive for nasal congestion; no abnormal hearing, ear pain, ear pressure, tinnitus or dizziness/vertigo Resp Respiratory: Positive for cough Cough: Yes non-productive; no shortness of breath Cardio Cardiology: No chest pain at rest, chest pain with exertion, shortness of breath, dyspnea on exertion, generalized swelling, irregular heart rhythm, lightheadedness, orthopnea, fast heart rate or palpitations Gastro GI: No abdominal pain, change in bowel habits, constipation or diarrhea Genitourinary-Female: Positive for absent period; no difficulty urinating, burning urination, painful urination, urinary incontinence, urinary frequency, urinary urgency, urinary hesitancy, urinary retention, Frequent nighttime urination/ nocturia, sexual problems, genital lesions, abnormal vaginal bleeding, pelvic pain, vaginal dryness, vaginal odor or Vaginal Itching [facility] Musculoskeletal: No joint pain, joint swelling, limited range of motion, muscle weakness, numbness or tingling Skin Skin: No change in skin color, itching, rash or wounds Breast Breast: No breast lump or breast pain Neuro Neurology: No frequent falls, weakness, abnormal hearing, numbness, tingling, unsteady gait/balance, dizziness, loss of vision, memory loss or visual disturbances Psych Psychiatric: No memory loss, No anxiety, No change in appetite, Positive for depression, No Thoughts of harming yourself/Others Endo Endocrine: No fatigue, heat intolerance, increased thirst/drinking, increased hunger or increased urination Aller/Imm Allergy/Immunologic: No itchy eyes or seasonal allergy symptoms Blaise/Lymp Hematologic/Lymphatic: No easy bleeding, easy bruising or enlarged lymph nodes Exam Const General: cooperative, no acute distress Orientation: alert, awake, oriented x3 [facility] Head: atraumatic, normocephalic Ears: hearing grossly normal bilaterally Resp Effort AND Inspection: normal respiratory effort, able to speak in complete sentences Auscultation: Bilateral: Clear to Auscultation Cardio Rate: regular rate Rhythm: regular rhythm Heart Sounds: S1 normal, S2 normal GI Palpation: soft (Not tender.) [facility] [place]: No muscle weakness Neuro General: alert, awake, oriented x3, moves all extremities, CN's II-XI intact bilaterally Extrem Other: Left lower extremity and pedal edema extending to the wilkes Psych Appearance: grossly normal Mental Status: mental status grossly normal Mood: congruent mood Affect: normal affect Office Meds Flucelvax Quad [id number] (PF) Performing Provider: Aster Martin MD Administered by: Reina Perez on 03/04/18 15:32 Dose Route Admin Location Lot Number Expiration Date NDC [employer] Operator 0.5 mL IM right deltoid [id number] 11/30/18 31935-258-91 yoonew. Assessment AND Plan 1. Legionella pneumonia A48.1 Plan Status post recent hospital admission with sepsis. Was transferred to [facility] due to acute on chronic kidney injury. Has done well since hospital discharge. Cough is improving. Shortness of breath also said to be improving. Labs ordered. Orders Orders: 2. Type 1 diabetes mellitus with diabetic neuropathy E10.40 Plan Appears to be poorly controlled. Patient reports good control based on her log however she is not here with her log. Most recent A1c of 12. Referred to endocrinology. 3. Hypertension I10 Plan Blood pressure 144/70 mmHg. Patient states that this is typically where her blood pressure has ranged and states that she has had a very difficult to control BP. Continue current medications for now. Continue lifestyle and dietary modifications. 4. Cataracts, bilateral H26.9 Plan Status post recent surgery at [facility]. Referred to ophthalmology. Will request records. Orders Referrals: 5. 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 Also history of necrotizing fasciitis and Achilles tendon repair. Referred to podiatry 6. Kidney disease N28.9 Plan History of end-stage renal disease. Status post renal transplant. During recent hospital stay, patient states that she had had suboptimal tacrolimus level and had adjustments to her medication. Tacrolimus level ordered. Referred to nephrology. Orders Orders: Referrals: 7. Amenorrhea N91.2 Plan She reports typically very regular periods however, over the last 6 weeks has had no periods. Urine beta hCG ordered. Orders Orders: 8. Healthcare maintenance Z00.00 Plan Flu shot given. Might need a booster dose of pneumonia, will get records from prior physician to confirm what she actually got in the past. This note was generated with Liquid dictation software. It may contain incorrect words, spelling, and punctuation that were not noted in checking the note before signing. 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 PrimaryRequired, No Pcp Note Recipients: Required, No Pcp, Discharge: Summary: Admission Date: .29-Jan-2018 21:14:00 Discharge Date: 06-Feb-2018 Attending Physician at Discharge: Marleen Goldstein Admission Reason: Legionnaire's disease and NEL(1) Final Discharge Diagnoses: Legionnaire's disease Procedures: Date: 01-Feb-2018 20:04:00 Procedure Name: 23g PPV OS with endolaser and TRISTAN OS Condition at Discharge: Fair Disposition at Discharge: .Home Vital Signs: T 37.1 P 82, R 18, SpO2 97%, BP 134/71 Physical Exam: Physical Examination: Gen: the patient is in no acute distress HEENT : EOMI, no oropharyngeal lesions, no pallor or icterus Neck : no raised JVP, no LAD Chest : bilateral clear breath sounds, no ronchi or wheeze Heart : RRR, s1 s2 heard, no murmurs or gallops Abdomen : soft, non tender, no organomegaly, BS+ Neuro : CN 3-12 intact, 5/5 strength throughout, DTR 5/5 throughout, no sensory impairments Ext : No pedal edema, pulses 2+ throughout Hospital Course: Ms. Bertram Ambrose is a 37 year old woman with history of poorly controlled type I diabetes mellitus and CKD s/p renal transplant who was transferred to [facility] from [facility] on (8/29). She was admitted to the infectious disease service with Legionnaires disease and NEL. Of note, she was recently admitted and discharged from [facility] on January 21 with non-ketotic hyperglycemia. At that hospital visit, an abdominal CT showed a cystic structure at the right adnexal area as well as fibroid uterus. There was no read on her transplant kidney or tunica-biloxi kidneys. At the time of transfer there was concern for acute kidney transplant rejection. When she arrived to [facility] she was afebrile and hemodynamically stable. Labs were notable for NEL with creatinine at 2.65 and HgA1C 11.6%. Baseline creatinine (2-2.5) with most recent 2.3 on (01/08). CA-125 levels were also found to be elevated at 62.1. Transplant nephrology, endocrinology, and gynecology teams were then consulted. Transplant nephrology recommended continuing home medication prednisone and tacrolimus as well as IVF while inpatient but to hold mycophenolate mofetil in the setting of NEL. They also recommended obtaining urine electrolytes and renal ultrasound for further evaluation of her kidneys. Urine electrolytes revealed FeNa 2.4% likely intrinsic kidney disease in setting of sepsis from Legionnaires Disease. Renal ultrasound showed atrophic tunica-biloxi kidneys without hydronephrosis or nephrolithiasis. Daily tacrolimus levels were drawn and patient was found to be subtherapeutic and her tacrolimus medication was increased to 2mg BID from 1mg BID. Gynecology evaluated the cystic lesion. The cystic lesion was determined to be a peritoneal inclusion cyst from prior abdominal surgeries and repeat imaging in 6-12 months was recommended for surveillance. The elevated Ca-125 was a non-specific finding in pre-menopausal woman. On (01/31) patient complained of acute mono-ocular vision loss in left eye. Stat ophthalmology consulted was placed. She was found to have bilateral retinal detachment. She then underwent endolaser surgery on her left eye(02/01). Following surgery her vision slowly improved and she received therapeutic eye drop medications from ophthalmology. The day following surgery (02/02) her morning blood glucose levels were greater than 600. She was given 10 units of lispro and started on an insulin drip. Endocrinology recommended giving an additional 10 units of detemir and then shutting the insulin drip off 1 hour after. An ABG was performed which revealed pH 7.44 with pCO2 27. There was no elevated anion gap. She was not in DKA. After receiving the additional detemir and insulin drip her blood glucose levels went down to 200?s. Over the hospital course, patient?s acute kidney improved with maintenance intravenous fluids. Her creatinine came down to baseline at 2.29. Her shortness of breath improved and she remained off of oxygen for most of her hospital course. She was treated with levofloxacin 750 mg every 48 hours for a total 3 week course (01/28-02/18). Physical therapy evaluated the patient and recommended home with home physical therapy. Appropriate follow-up with ophthalmology was scheduled for (02/07). Follow-up appointments were also scheduled to establish care with a primary care provider, transplant managing jeweler, and building surveyor. Patient had just moved to [place] 1 month ago from [place]. She had only been following with a transplant managing jeweler once every 6 months. It was stressed to the patient the importance of following up with all scheduled appointments especially ophthalmology. There was concern that she would not follow-up because she was planning on moving to [place] with her and wanting to establish care as a patient there. She was told that it would be in her best interests to follow with at least the ophthalmology team at since they were the physicians who performed her surgery. Discharge Information: and Continuing Care: Discharge Instructions: Activity: activity as tolerated. May not shower for 1 week(s). after eye suregry Nutrition/Diet: resume normal diet Additional Orders: Additional Instructions: You were hospitalized for Legionnaires disease and acute kidney injury. We treated you with antibiotic (levofloxacin) every 48 hours. You will need to complete a 3 week course (January 28-February 11). Your kidney tests have come back to normal . You were also see by our eye doctors and had left eye surgery. Please wear shield at bedtime and while sleeping. Avoid pressure to the eye. No water in the eye for 1 week. Please follow-up with ophthalmology this Saturday (02/07) at [facility]. Home Care Certification: Skilled Disciplines Ordered: PT Home Care Services: Home Care Skilled Service: Rehab (PT/OT/SP eval and treat) Follow Up Appointments: Follow-Up Appointment 01: Physician/Dept/Service: Dr. Martin Reason for Referral: Establish with Primary Care Provider Scheduled Date/Time: 14-Feb-2018 09:00 Location: [facility] [address], [place] [address] Follow-Up Appointment 02: Physician/Dept/Service: Transplant Nephrology Call to Schedule in: 2-3 days, Office requests to call you directly to schedule appointment Location: [address], [place] [address] Follow-Up Appointment 03: Physician/Dept/Service: Dr. Martinez - Opthalmology Scheduled Date/Time: 07-Feb-2018 08:20 Location: [address], [place] [address] Follow-Up Appointment 04: Physician/Dept/Service: Dr. Herlinda Bass - Endocrinology Scheduled Date/Time: 11-Mar-2018 10:00 Location: [facility] [address] [address] option 4 Discharge Medications: Home Medication carvedilol 25 mg oral tablet - 1 tab(s) orally 2 times a day gabapentin 300 mg oral tablet - orally 2 times a day mycophenolate mofetil 500 mg oral tablet - 500 mg by mouth orally 2 times a day NIFEdipine 60 mg oral tablet, extended release - 1 tab(s) orally once a day oxyCODONE 5 mg oral tablet - orally 2 times a day pravastatin 40 mg oral tablet - 1 tab(s) orally once a day predniSONE 5 mg oral tablet - 1 tab(s) orally once a day zolpidem 10 mg oral tablet - 1 tab(s) orally once a day (at bedtime) insulin detemir 100 units/mL subcutaneous solution - 32 international unit(s) subcutaneous insulin aspart 100 units/mL subcutaneous solution - 6 international unit(s) subcutaneous cyclopentolate 1% ophthalmic solution - 1 drop(s) in the left eye 2 times a day erythromycin 0.5% ophthalmic ointment - 0.5 inch(es) in the left eye every 24 hours prednisoLONE acetate 1% ophthalmic suspension - 1 drop(s) in the left eye every 6 hours moxifloxacin 0.5% ophthalmic solution - 1 drop(s) in the left eye 4 times a day levoFLOXacin 750 mg oral tablet - 1 tab(s) orally every 48 hours tacrolimus 1 mg oral capsule - 3 cap(s) orally 2 times a day - (Every 1 day at 07:00, 19:00 ) PRN Medication Lab Results - Pending: None Radiology Results - Pending: None Signature/Cosignature/Attestation: Attending AttestationI saw and evaluated the patient. I personally obtained the vitale and critical portions of the history and physical exam or was physically present for vitale and critical portions performed by the resident/fellow. I reviewed the resident/fellow?s documentation and discussed the patient with the resident/fellow. I agree with the resident/fellow?s medical decision making as documented in the resident/fellow?s note with the exception/addition of the following: I personally evaluated the patient (as noted in the above attestation) on 06-Feb-2018 Comments/ Additional Findings Discharge arrangements required > 30 minutes Electronic Signatures: Josee Collins (Resident)) (Signed 07-Feb-2018 16:21) Authored: Send Summary, Summary Content, Ongoing Care, Signature/Cosignature/Attestation Marleen Goldstein) (Signed 08-Feb-2018 10:25) Authored: Summary Content, Ongoing Care, Signature/Cosignature/Attestation Co-Signer: Send Summary, Summary Content, Ongoing Care, Signature/Cosignature/Attestation Last Updated: 08-Feb-2018 10:25 by Marleen Goldstein) References: 1. Data Referenced From Consult-Gyneological / Obstetric ( Medical Student Note ) 01/30/2018 01:17 PM OPHTHALMIC EYE EXAM Observed: 02/07/2018 Status: UNK Source: [place] 8:20 AM HOSPITALS REPOSITORY DOCUMENT SIGNED ELECTRONICALLY BY Jose Martinez MD ON 02/07/2018 09:29:24 [address] [id number] [place] [address] THIS DOCUMENT WAS CREATED ON: 02/07/2018 09:29:16 AM BY: MD Nelly Tang OT performed [id number] Exam Date: Wednesday, February 07, 2018 PATIENT NAME: BERTRAM AMBROSE DATE: 1980 AGE: 37 GENDER: Female RACE: Black or History Chief Complaint/Reason For Visit: Post Op, S/p PPV /EL/ TRISTAN os for tractional retinal detachment (02/01/18). Complient with drops and ointment. Problem-vision seems slightly better, Context/Onset-last week, Location-left eye, HISTORY OF PRESENT ILLNESS: PROBLEM: vision seems slightly better CONTEXT/ONSET: last week LOCATION: left eye PROBLEM: slight discomfort CONTEXT/ONSET: last week LOCATION: left eye HPI was performed by Dr. Jose Martinez MD and scribed by Dorian Martinez MD PAST MEDICAL HISTORY: ILLNESSES: History of diabetes mellitus; History of hypertension SURGERIES: History of Kidney Surgery SOCIAL HISTORY: SMOKING: Former smoker (V15.82 Z87.891) CURRENT MEDICATIONS: Ambien 5 MG Oral Tablet Tablet, [Reported] Carvedilol 6.25 MG Oral T Tablet, [Reported] Gabapentin 300 MG Oral Ca Capsule, [Reported] HumuLIN R 100 UNIT/ML Inj Solution, [Reported] PredniSONE 5 MG Oral Tabl Tablet, [Reported] Tacrolimus CAPS Capsule, [Reported] Ophthalmic: Cyclogyl 1 % Ophthalmic S Solution, [Reported] Erythromycin 5 MG/GM Opht Ointment, [Reported] PrednisoLONE Acetate 1 % Suspension, [Reported] ALLERGIES: Lasix REVIEW OF SYSTEMS: GENERAL:Diabetes type 1 CARDIOVASCULAR:HTN GENITOURINARY:Kidney Transplant ENDOCRINE:A1c: 11.0 All other Review Of Systems negative Exam ORIENTATION, MOOD AND AFFECT: Alert AND oriented x3 RIGHT EYE LEFT EYE UNCORRECTED VA 20/60 +2 20/400 +1 PINHOLE No improvement 20/200 +2 PRESSURE METHOD: Applanation Applanation PRESSURES: 16 15 DATE-TIME: 08:47 AM 08:47 AM ROCK WORKER: CClowxx1 CClowxx1 EXTERNAL EYE EXAM: LID: Good Position PUPIL: dilated ANTERIOR SEGMENT EXAM: TEARFILM: Good CONJUNCTIVA: 2+ conj hyperemia CORNEA: Clear ANTERIOR CHAMBER: Deep and quiet IRIS: dilated LENS: 3+ cortical spokes, 1+NS ANTERIOR VITREOUS: Clear FUNDUS EXAM: DILATION and NUMBING DROPS: Jens 2.5% AND Mydriacyl 1% OU 02/07/2018 08:41:35 AM CUP TO DISC: 0.4 VITREOUS: clear MACULA: flat VESSELS: membrane remnant at the arcade PERIPHERY: flat 360 with PRP laser Impression 01 H33.42 Retinal detachment, tractional, left eye-New 02 E10.3599 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-New Discussion A/P: PDR OU OS: VH with TRD s/p 23g PPV/MP/EL (02/01/18) Cataracts OU Doing well, IOP wnl Medications: # Eye: vigamox stop prednisolone qid with taper cyclogel BID stop Post op instructions given Post op precations discussed Head position: none f/u in 3 weeks sooner PRN Plan TODAY (OU) - OCT Macula By:Jose Martinez MD Jose Martinez MD DOCUMENT CREATE DATE: 02/07/2018 09:29:19 AM The Following Users Updated This Patient Encounter: Nelly Barker, OT Jose Martinez MD Received for:Jose Martinez Feb 07 2018 9:29AM Eastern Standard Time DAILY PROGRESS Observed: 02/06/2018 Status: COMPLETED Source: [facility]ENDOCRIN[facility] 9:15 PM HOSPITALS REPOSITORY Consult Type: subsequent visit/care Service: Endocrinology Subjective Data: BERTRAM AMBROSE is a 37 year old Female who is Hospital Day # 9 and POD #5 for 23g PPV OS with endolaser and TRISTAN OS. Patient is ready to go home. She will follow with an building surveyor probably in [place]. Objective Data: Objective Information: T PRBPSpO2 [id number]/33548% Date/Time02/06 13: 13: 13: 13: 13:42 Range(36.9C - 37.1C ) (79 - 82 ) (18 - 18 ) (134 - 139 )/ (71 - 75 ) (97% - 100% ) Highest temp of 37.1 C was recorded at 02/06 5:10 Pain with Activity reported at 02/06 9:00: 0 Pain at Rest reported at 02/06 9:00: 0 Recent Lab Results: Results: I have reviewed these laboratory results: Glucose_POCT Trending View [id number] 11:07:00 06-Feb-2018 10:39:00 06-Feb-2018 07:22:00 05-Feb-2018 21:46:00 05-Feb-2018 16:47:00 05-Feb-2018 11:50:00 05-Feb-2018 08:01:00 Glucose-EASR301 H 52 L 102 H 258 H 244 H 91 121 H Complete Blood Count 06-Feb-2018 06:19:00 ResultValue White Blood Cell Count 5.2 Nucleated Erythrocyte Count 0.0 Red Blood Cell Count 3.22 L HGB 9.2 L HCT 27.3 L MCV 85 MCHC 33.7 PLT 278 RDW-CV 16.4 H Renal Function Panel 06-Feb-2018 06:19:00 ResultValue Glucose, Serum 115 H NA 141 K 4.2 CL 106 Bicarbonate, Serum 26 Anion Gap, Serum 13 BUN 35 H CREAT 2.29 H GFR-Non 24 A GFR- 29 A Calcium, Serum 9.2 Phosphorus, Serum 3.8 ALB 2.8 L Tacrolimus, Blood 06-Feb-2018 06:19:00 ResultValue Tacrolimus, Blood 4.6 Assessment and Plan: Assessment: Ms. 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 Endocrinology was consulted for inpatient management of diabetes. 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 Her home regimen is detemir 32 units at bedtime, novolog SSI with meals. Her Hba1c was 11.6% on 01/30/18. Of note she was found to have bilateral retinal detachment s/p repair on saturday. ROS is positive for blurry vision and back pain. BG and labs reviewed. Discharge recommendations - Continue levemir 32 units at bedtime - Continue lispro 6 units with meals -Continue sliding scale with meals. 1 unit for each 50 mg/dl above 150 - POCT ACHS - Diabetic diet - Hypoglycemia protocol - Above communicated to primary team Please call [place] questions p. [phone] Patient was discussed with Dr. Persaud Electronic Signatures: Kenzie Edward (Resident)) (Signed 06-Feb-2018 21:17) Authored: Service, Subjective Data, Objective Data, Assessment and Plan Linn Persaud) (Signed 07-Feb-2018 18:09) Authored: Signature/Cosignature/Attestation Co-Signer: Service, Subjective Data, Objective Data, Assessment and Plan Last Updated: 07-Feb-2018 18:09 by Linn Persaud) CLINICAL EVENT Observed: 02/06/2018 Status: UNK Source: [facility] NOTE-RATER ASSOCIATE FOLLOW UP 3:33 PM HOSPITALS REPOSITORY Event: Topic: RATER ASSOCIATE follow up Details: Spoke with patient who stated she has no further questions regarding her contraceptive options. Plans to use Depo provera. Has her own OBGYN that she intends to follow up with after discharge from the hospital. Bobby Crockett MD PGY4 RATER ASSOCIATE Pager [phone] Electronic Signatures: Marlen Quispe (Resident)) (Signed 06-Feb-2018 15:35) Authored: Event Last Updated: 06-Feb-2018 15:35 by Marlen Quispe ( (Resident)) GLUCOSE-POCT Collected: 02/06/2018 Status: F Source: [place] 1:41 PM HOSPITALS REPOSITORY TYPE CODE TESTS RESULT OUT OF RANGE REFERENCE UNITS LAB GLUP(LOINC) 74 - 99 mg/dL 89 GLUCOSE-POCT Performed By: #### GLUPO #### [facility] [address] [place] [address] GLUCOSE-POCT Collected: 02/06/2018 Status: F Source: [place] 11:07 AM HOSPITALS REPOSITORY TYPE CODE TESTS RESULT OUT OF RANGE REFERENCE UNITS LAB GLUP(LOINC) 74 - 99 mg/dL High 106 GLUCOSE-POCT Performed By: #### GLUPO #### [facility] [address] [place] [address] GLUCOSE-POCT Collected: 02/06/2018 Status: F Source: [place] 10:39 AM HOSPITALS REPOSITORY TYPE CODE TESTS RESULT OUT OF RANGE REFERENCE UNITS LAB GLUP(LOINC) 74 - 99 mg/dL Low 52 GLUCOSE-POCT Performed By: #### GLUPO #### [facility] [address] [place] [address] DAILY PROGRESS Observed: 02/06/2018 Status: COMPLETED Source: [facility]RENAL 9:50 AM HOSPITALS REPOSITORY Service: Renal Subjective Data: BERTRAM AMBROSE is a 37 year old Female who is Hospital Day # 9 and POD #5 for 23g PPV OS with endolaser and TRISTAN OS. Additional Information: Feeling well this am Looking forward to going home and happy that some of L eye vision is returning No SOB No LE edema Denies issues Objective Data: Objective Information: T PRBPSpO2 Value37.70472595/7197% Date/Time02/06 5: 5: 5: 5: 5:10 Range(35.8C - 37.1C ) (82 - 89 ) (18 - 18 ) (117 - 140 )/ (68 - 80 ) (97% - 100% ) Highest temp of 37.1 C was recorded at 02/06 5:10 Pain with Activity reported at 02/05 20:50: 0 Pain at Rest reported at 02/05 20:50: 0 Physical Exam: Constitutional: awake, interacive Eyes: patch on L eye ENMT: no oral lesions Respiratory/Thorax: clear bilateral anterior apices Cardiovascular: reg, no mrg Gastrointestinal: soft, NT, BS present Extremities: warm, dry, no edema Medication: Medications: Continuous Medications No continuous medications are active Scheduled Medications 1. Carvedilol: 25 mg Oral 2 Times a Day 2. Cyclopentolate 1% Ophthalmic: 1 drop(s) Left Eye 2 Times a Day 3. Docusate: 100 mg Oral 2 Times a Day 4. Erythromycin 0.5% Ophthalmic: 0.5 inch(es) Left Eye Every 24 Hours 5. Gabapentin: 300 mg Oral 2 Times a Day 6. guaiFENesin Extended Release: 600 mg Oral Every 12 Hours 7. Heparin SubCutaneous: 5000 unit(s) SubCutaneous Every 12 Hours 8. Insulin Detemir (Levemir) Injectable: 32 unit(s) SubCutaneous At Bedtime 9. Insulin Lispro (HumaLOG) Injectable: 6 unit(s) SubCutaneous 3 Times a Day Before Meals 10. Insulin Lispro Customizable Corrective Scale: unit(s) SubCutaneous 3 Times a Day Before Meals 11. Lactated Ringers IV Bolus: 1000 mL IntraVenous Piggyback Once 12. levoFLOXacin: 750 mg Oral Every 48 Hours 13. Moxifloxacin 0.5% Ophthalmic: 1 drop(s) Left Eye 4 Times a Day 14. NIFEdipine Extended Release: 60 mg Oral Daily 15. Pravastatin: 40 mg Oral Daily 16. prednisoLONE 1% Ophthalmic: 1 drop(s) Left Eye Every 6 Hours 17. predniSONE: 5 mg Oral Daily 18. Tacrolimus: 3 mg Oral <User Schedule> PRN Medications 1. Acetaminophen: 650 mg Oral Every 4 Hours 2. Albuterol 2.5 mg/ 3 mL Nebulizer Soln: 3 mL Inhalation Every 6 Hours 3. Dextrose 50% in Water Injectable: 25 gram(s) IntraVenous Push Every 15 Minutes 4. Glucagon Injectable: 1 mg IntraMuscular Every 15 Minutes 5. Ondansetron: 8 mg Oral Every 12 Hours 6. oxyCODONE Immediate Release: 5 mg Oral Every 4 Hours 7. Polyethylene Glycol: 17 gram(s) Oral Daily 8. Zolpidem: 10 mg Oral At Bedtime Conditional Medication Orders 1. Dextrose 10% in Water Infusion: 1000 mL IntraVenous <Continuous> Currently Suspended Medications 1. Mycophenolate Mofetil: 500 mg Oral Every 12 Hours Recent Lab Results: Results: I have reviewed these laboratory results: Glucose_POCT 06-Feb-2018 07:22:00 ResultValue Glucose-POCT 102 H Complete Blood Count 06-Feb-2018 06:19:00 ResultValue White Blood Cell Count 5.2 Nucleated Erythrocyte Count 0.0 Red Blood Cell Count 3.22 L HGB 9.2 L HCT 27.3 L MCV 85 MCHC 33.7 PLT 278 RDW-CV 16.4 H Renal Function Panel 06-Feb-2018 06:19:00 ResultValue Glucose, Serum 115 H NA 141 K 4.2 CL 106 Bicarbonate, Serum 26 Anion Gap, Serum 13 BUN 35 H CREAT 2.29 H GFR-Non 24 A GFR- 29 A Calcium, Serum 9.2 Phosphorus, Serum 3.8 ALB 2.8 L Assessment and Plan: Assessment: Patient is a 37 year old female with ESRD 2/2 DM type 1 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 Patient presented to the OSH on 01/27/2018 with fever, chills, and cough and admitted to ICU with HCAP, Acute respiratory failure requiring BiPAP, and NEL with Cr 3.9. Patient received Tacrolimus sublingual and IV steroids. MMF was held. Serum cr back to baseline UO is good Follow up tacrolimus level today to determine dose at d/c Pt should be restarted on cellcept at prior outpatient dose upon d/c Wants to f/u with transplant team in [place] Electronic Signatures: Dorcas Acevedo) (Signed 06-Feb-2018 09:54) Authored: Service, Subjective Data, Objective Data, Assessment and Plan, Signature/Cosignature/Attestation Last Updated: 06-Feb-2018 09:54 by Dorcas Acevedo) GLUCOSE-POCT Collected: 02/06/2018 Status: F Source: [facility] 7:22 AM HOSPITALS REPOSITORY TYPE CODE TESTS RESULT OUT OF RANGE REFERENCE UNITS LAB GLUP(LOINC) 74 - 99 mg/dL High 102 GLUCOSE-POCT Performed By: #### GLUPO #### [facility] [id number] [place] [address] CBC Collected: 02/06/2018 Status: F Source: [facility] 6:19 AM HOSPITALS REPOSITORY TYPE CODE TESTS RESULT OUT OF REFERENCE UNITS RANGE LAB WBCR(LOINC 4.4 - 11.3 x10E9/L ) WBC 5.2 LAB NRBC(LOINC 0.0-0.0 /100 WBC ) NUCLEATED RBC 0.0 LAB RBCCT(LOIN 4.00 - 5.20 x10E12/L C) Low RBC 3.22 LAB HGB(LOINC) 12.0 - 16.0 g/dL Low HGB 9.2 LAB HCT(LOINC) 36.0 - 46.0 % Low HCT 27.3 LAB MCV(LOINC) 80 - 100 fL MCV 85 LAB MCHC2(LOIN 32.0 - 36.0 g/dL C) MCHC 33.7 LAB PLTCT(LOIN 150 - 450 x10E9/L C) PLT 278 LAB RDWCV(LOIN 11.5 - 14.5 % C) High RDW-CV 16.4 Performed By: #### CBC #### [facility] [id number] [place] [address] RENAL FUNCTION PANEL Collected: 02/06/2018 Status: F Source: [facility] 6:19 AM HOSPITALS REPOSITORY TYPE CODE TESTS RESULT OUT OF RANGE REFERENCE UNITS LAB GLU(LOINC) 74 - 99 mg/dL High GLUCOSE 115 LAB SOD(LOINC) 136 - 145 mmol/L SODIUM 141 LAB K(LOINC) 3.5 - 5.3 mmol/L POTASSIUM 4.2 LAB CHLOR(LOIN 98 - 107 mmol/L C) CHLORIDE 106 LAB BIC(LOINC) 21 - 32 mmol/L BICARBONATE 26 LAB ANGAP(LOIN 10 - 20 mmol/L C) ANION GAP 13 LAB UREA(LOINC 6 - 23 mg/dL ) High UREA NITROGEN 35 LAB CREA(LOINC 0.50 - 1.05 mg/dL ) High CREATININE 2.29 LAB GFRFN(LOIN >60 mL/min/1.7 C) 3m2 GFR-NON Abnormal AM. 24 LAB GFRAA(LOIN >60 mL/min/1.7 C) 3m2 GFR- Abnormal AM. 29 Result Comment: CALCULATIONS OF ESTIMATED GFR ARE PERFORMED USING THE MDRD STUDY EQUATION FOR THE IDMS-TRACEABLE CREATININE METHODS. CLIN CHEM 2007;53:766-72 LAB CA(LOINC) 8.6 - 10.6 mg/dL CALCIUM 9.2 LAB PHOS(LOINC) 2.5 - 4.9 mg/dL PHOSPHORUS 3.8 Result Comment: The performance characteristics of phosphorus testing in heparinized plasma have been validated by the individual laboratory site where testing is performed. Testing on heparinized plasma is not approved by the FDA; however, such approval is not necessary. LAB ALB(LOINC) 3.4 - 5.0 g/dL Low ALBUMIN 2.8 Performed By: #### RENAL #### [facility] [id number] [address] [address] [address] [place] [address] TACROLIMUS Collected: 02/06/2018 Status: F Source: [facility] 6:19 AM HOSPITALS REPOSITORY TYPE CODE TESTS RESULT OUT OF REFERENCE UNITS RANGE LAB FK506(LOIN 2.0 - 15.0 ng/mL C) TACROLIMUS 4.6 Result Comment: NOTE: Result was obtained using a chemiluminescent microparticle immunoassay (CMIA) on the Public Health Inspector i system. Optimal therapeutic ranges for immuno- suppressant drugs depend upon an individual patient's current clinical state, type of organ transplant, time post-transplant, co-administration of other immunosuppressants, and other clinical factors. The results of this test should be correlated with additional clinical and laboratory data before changes in treatment regimens are made. Performed By: #### FK506 #### [facility] [address] [place], [place] [id number] GLUCOSE-POCT Collected: 02/05/2018 Status: F Source: [facility] 9:46 PM HOSPITALS REPOSITORY TYPE CODE TESTS RESULT OUT OF RANGE REFERENCE UNITS LAB GLUP(LOINC) 74 - 99 mg/dL High 258 GLUCOSE-POCT Performed By: #### GLUPO #### [facility] [address] [facility] [place] [address] DAILY PROGRESS Observed: 02/05/2018 Status: COMPLETED Source: [facility] NOTE-ENDOCRINOLOGY 5:00 PM HOSPITALS REPOSITORY Consult Type: subsequent visit/care Service: Endocrinology Subjective Data: BERTRAM AMBROSE is a 37 year old Female who is Hospital Day # 8 and POD #4 for 23g PPV OS with endolaser and TRISTAN OS. No acute events. Patient reports good appetite and will be discharged home probably tomorrow. Objective Data: Objective Information: T PRBPSpO2 [id number]/6899% Date/Time02/05 15:139/5 15:139/5 15:139/5 15:139/5 15:13 Range(36C - 36.9C ) (86 - 97 ) (18 - 18 ) (117 - 150 )/ (68 - 80 ) (99% - 100% ) Highest temp of 36.9 C was recorded at 02/05 5:18 Pain with Activity reported at 02/05 9:45: 6 Pain at Rest reported at 02/05 9:45: 6 T PRBPSpO2 [id number]/6899% Date/Time02/05 15:139 15:139 15:139 15:139 15:13 Range(36C - 36.9C ) (86 - 97 ) (18 - 18 ) (117 - 150 )/ (68 - 80 ) (99% - 100% ) Highest temp of 36.9 C was recorded at 02/05 5:18 Physical Exam: Constitutional: Well developed, awake/alert/oriented x3, no distress, alert and cooperative Eyes: Anicteric sclera Respiratory/Thorax: GBAE ausculted anteriorly Cardiovascular: S1-S2 regular Gastrointestinal: BS+ soft, LLQ tenderness on minimal palpation Psychological: Appropriate mood and behavior Skin: warm and dry Medication: Medications: Continuous Medications No continuous medications are active Scheduled Medications 1. Carvedilol: 25 mg Oral 2 Times a Day 2. Cyclopentolate 1% Ophthalmic: 1 drop(s) Left Eye 2 Times a Day 3. Docusate: 100 mg Oral 2 Times a Day 4. Erythromycin 0.5% Ophthalmic: 0.5 inch(es) Left Eye Every 24 Hours 5. Gabapentin: 300 mg Oral 2 Times a Day 6. guaiFENesin Extended Release: 600 mg Oral Every 12 Hours 7. Heparin SubCutaneous: 5000 unit(s) SubCutaneous Every 12 Hours 8. Insulin Detemir (Levemir) Injectable: 32 unit(s) SubCutaneous At Bedtime 9. Insulin Lispro (HumaLOG) Injectable: 6 unit(s) SubCutaneous 3 Times a Day Before Meals 10. Insulin Lispro Customizable Corrective Scale: unit(s) SubCutaneous 3 Times a Day Before Meals 11. Lactated Ringers IV Bolus: 1000 mL IntraVenous Piggyback Once 12. levoFLOXacin: 750 mg Oral Every 48 Hours 13. Moxifloxacin 0.5% Ophthalmic: 1 drop(s) Left Eye 4 Times a Day 14. NIFEdipine Extended Release: 60 mg Oral Daily 15. Pravastatin: 40 mg Oral Daily 16. prednisoLONE 1% Ophthalmic: 1 drop(s) Left Eye Every 6 Hours 17. predniSONE: 5 mg Oral Daily 18. Tacrolimus: 3 mg Oral <User Schedule> PRN Medications 1. Acetaminophen: 650 mg Oral Every 4 Hours 2. Albuterol 2.5 mg/ 3 mL Nebulizer Soln: 3 mL Inhalation Every 6 Hours 3. Dextrose 50% in Water Injectable: 25 gram(s) IntraVenous Push Every 15 Minutes 4. Glucagon Injectable: 1 mg IntraMuscular Every 15 Minutes 5. Ondansetron: 8 mg Oral Every 12 Hours 6. oxyCODONE Immediate Release: 5 mg Oral Every 4 Hours 7. Polyethylene Glycol: 17 gram(s) Oral Daily 8. Zolpidem: 10 mg Oral At Bedtime Conditional Medication Orders 1. Dextrose 10% in Water Infusion: 1000 mL IntraVenous <Continuous> Currently Suspended Medications 1. Mycophenolate Mofetil: 500 mg Oral Every 12 Hours Recent Lab Results: Results: I have reviewed these laboratory results: Glucose_POCT Trending View [id number] 16:47:00 05-Feb-2018 11:50:00 05-Feb-2018 08:01:00 04-Feb-2018 20:06:00 04-Feb-2018 16:40:00 04-Feb-2018 11:47:00 04-Feb-2018 07:40:00 Glucose-[id number] H 91 121 H 220 H 144 H 102 H 179 H Complete Blood Count Trending View [id number] 06:27:00 04-Feb-2018 06:28:00 White Blood Cell Count4.7 4.7 Nucleated Erythrocyte Count0.0 0.0 Red Blood Cell Count3.16 L 3.37 L HGB8.7 L 9.5 L HCT26.7 L 28.6 L MCV84 85 MCHC32.6 33.2 YJM001 309 RDW-CV16.2 H 16.0 H Renal Function Panel 05-Feb-2018 06:27:00 ResultValue Glucose, Serum 134 H NA 141 K 3.8 CL 108 H Bicarbonate, Serum 27 Anion Gap, Serum 10 BUN 32 H CREAT 2.22 H GFR-Non 25 A GFR- 30 A Calcium, Serum 9.1 Phosphorus, Serum 3.5 ALB 2.6 L Tacrolimus, Blood 05-Feb-2018 06:27:00 ResultValue Tacrolimus, Blood 3.0 Assessment and Plan: Assessment: Ms. 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 Endocrinology was consulted for inpatient management of diabetes. 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 Her home regimen is detemir 32 units at bedtime, novolog SSI with meals. Her Hba1c was 11.6% on 01/30/18. Of note she was found to have bilateral retinal detachment s/p repair on saturday. ROS is positive for blurry vision and back pain. BG and labs reviewed. Plan: No change in plan - Continue levemir 32 units at bedtime - Continue lispro 6 units with meals -Continue sliding scale with meals. 1 unit for each 50 mg/dl above 150 - POCT ACHS - Diabetic diet - Hypoglycemia protocol - If patient to be discharged tomorrow she can leave on the above regimen but she needs a follow up with endocrinology - Above communicated to primary team [place] with [place]. [phone] Patient was discussed with Dr. Persaud Electronic Signatures: Kenzie Edward (Resident)) (Signed 05-Feb-2018 17:07) Authored: Service, Subjective Data, Objective Data, Assessment and Plan, Signature/Cosignature/Attestation Linn Persaud) (Signed 07-Feb-2018 18:09) Authored: Signature/Cosignature/Attestation Co-Signer: Service, Subjective Data, Objective Data, Assessment and Plan, Signature/Cosignature/Attestation Last Updated: 07-Feb-2018 18:09 by Linn Persaud) GLUCOSE-POCT Collected: 02/05/2018 Status: F Source: [facility] 4:47 PM HOSPITALS REPOSITORY TYPE CODE TESTS RESULT OUT OF RANGE REFERENCE UNITS LAB GLUP(LOINC) 74 - 99 mg/dL High 244 GLUCOSE-POCT Performed By: #### GLUPO #### [facility] [id number] [place] [address] DAILY PROGRESS Observed: 02/05/2018 Status: COMPLETED Source: [facility] NOTE-INFECTIOUS DISEASE 2:38 PM HOSPITALS REPOSITORY Service: Infectious Disease Subjective Data: BERTRAM AMBROSE is a 37 year old Female who is Hospital Day # 8 and POD #4 for 23g PPV OS with endolaser and TRISTAN OS. No acute events overnight. Reports feeling overall better. Denies shortness of breath, abdominal pain, or flank pain. Able to get up and walk to bathroom with cane, still feels slightly weaker than baseline. Objective Data: Objective Information: T PRBPSpO2 [id number]% Date/Time02/05 10: 10: 10: 10: 10:00 Range(36C - 36.9C ) (86 - 97 ) (18 - 18 ) (117 - 150 )/ (70 - 80 ) (99% - 100% ) Highest temp of 36.9 C was recorded at 02/05 5:18 Pain with Activity reported at 02/05 9:45: 6 Pain at Rest reported at 02/05 9:45: 6 Physical Exam: Constitutional: Looks well in bed not in pain or distress Eyes: Improved visual field in right eye with left eye patched s/p surgery ENMT: moist mucosal membranes Head/Neck: Supple, scar of prior tracheostomy Respiratory/Thorax: lungs clear to auscultation bilaterally Cardiovascular: S1, S2 no murmur no added sounds Gastrointestinal: + bowel sounds, no TTP in all 4 quadrants Musculoskeletal: No swelling, erythema or induration Extremities: Right metatarsal foot amputation. No peripheral edema. Neurological: A&Ox3. No appreciable fnd's Psychological: Appropriate mood and behavior Skin: excessive scarring over the left lower leg, abdominal wall Medication: Medications: Continuous Medications No continuous medications are active Scheduled Medications 1. Carvedilol: 25 mg Oral 2 Times a Day 2. Cyclopentolate 1% Ophthalmic: 1 drop(s) Left Eye 2 Times a Day 3. Docusate: 100 mg Oral 2 Times a Day 4. Erythromycin 0.5% Ophthalmic: 0.5 inch(es) Left Eye Every 24 Hours 5. Gabapentin: 300 mg Oral 2 Times a Day 6. guaiFENesin Extended Release: 600 mg Oral Every 12 Hours 7. Heparin SubCutaneous: 5000 unit(s) SubCutaneous Every 12 Hours 8. Insulin Detemir (Levemir) Injectable: 32 unit(s) SubCutaneous At Bedtime 9. Insulin Lispro (HumaLOG) Injectable: 6 unit(s) SubCutaneous 3 Times a Day Before Meals 10. Insulin Lispro Customizable Corrective Scale: unit(s) SubCutaneous 3 Times a Day Before Meals 11. Lactated Ringers IV Bolus: 1000 mL IntraVenous Piggyback Once 12. levoFLOXacin: 750 mg Oral Every 48 Hours 13. Moxifloxacin 0.5% Ophthalmic: 1 drop(s) Left Eye 4 Times a Day 14. NIFEdipine Extended Release: 60 mg Oral Daily 15. Pravastatin: 40 mg Oral Daily 16. prednisoLONE 1% Ophthalmic: 1 drop(s) Left Eye Every 6 Hours 17. predniSONE: 5 mg Oral Daily 18. Tacrolimus: 3 mg Oral <User Schedule> PRN Medications 1. Acetaminophen: 650 mg Oral Every 4 Hours 2. Albuterol 2.5 mg/ 3 mL Nebulizer Soln: 3 mL Inhalation Every 6 Hours 3. Dextrose 50% in Water Injectable: 25 gram(s) IntraVenous Push Every 15 Minutes 4. Glucagon Injectable: 1 mg IntraMuscular Every 15 Minutes 5. Ondansetron: 8 mg Oral Every 12 Hours 6. oxyCODONE Immediate Release: 5 mg Oral Every 4 Hours 7. Polyethylene Glycol: 17 gram(s) Oral Daily 8. Zolpidem: 10 mg Oral At Bedtime Conditional Medication Orders 1. Dextrose 10% in Water Infusion: 1000 mL IntraVenous <Continuous> Currently Suspended Medications 1. Mycophenolate Mofetil: 500 mg Oral Every 12 Hours Assessment and Plan: Assessment: Patient is a 37 years old female with Type I diabetes mellitus, renal transplantation with history of rejection on tacrolimus, prednisone, and mycophenolate mofetil, 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 Patient complaining of shortness of breath and bilateral flank pain on admission. Hospital course at [facility] complicated by ICU stay requiring Bipap. CT abs/pelvis showed abdominal cystic lesion, bilateral atrophic tunica-biloxi kidneys. Renal ultrasound negative for hydronephrosis or nephrolithiasis. NEL in setting of sepsis less likely acute transplant rejection. Had acute monocular blurry vision found to have bilateral retinal detachment s/p surgery of left eye. Will continue 3 week course of levofloxacin renally dosed. Today (02/05): Overall improved kidney function, improved shortness of breath, worked with PT today who recommend PT with home care. -S/p left eye surgery on (02/01). Following optho recs. Plan for outpatient visit this Saturday (02/07). -POCT blood glucose levels improved from yesterday most recently 179->120->220. Follow endocrinology recs. Detemir at 32 units. Lispro 6 units TID before meals. Mild corrective ISS. -Shortness of breath improved. Now satting well on room air. Continue pulmonary hygiene. Transition to oral levofloxacin 750 mg every 48 hours. Will need 3 week course. Start (01/28-02/11) -Creat improved at 2.22, at baseline. Will need to follow with renal transplant after discharge. -Increased tacrolimus to 3mg BID yesterday. Check tacrolimus level tomorrow am. 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 Will need 3 week course. -CXR revealed patchy bilateral infiltrates -Continue pulmonary hygiene with respiratory therapy -Trend daily CBC #Renal transplant with history of rejection, on tacrolimus, mycophenolate, and prednisone #Acute kidney injury in setting of infection, slowly recovering creat at 2.22 -Baseline creat (2-2.5). Most recent creat 2.3 on 01/08/18. At 2.35 today (02/04). -Nephrology consult to evaluate for rejection . Appreciate recs: FeNa 2.4%, renal ultrasound without evidence of hydronephrosis or nephrolithiasis and findings consistent with CKD. -Patient would like to continue follow up with her managing jeweler at [place]. -Continue tacrolimus and prednisone. Will hold mycophenolate for now. Restart mycophenolate at discharge -Uploaded CT abd/pelvis into system. Reveals bilateral kidney atrophy. Transplant in right iliac fossa. Diffuse atherosclerotic calcifications of aorta, superior mesenteric, inferior mesenteric, and splenic arteries. -Minimize contrast exposure -Avoid nephrotoxic medications -Trend daily rfp -Strict I/O's #Peritoneal inclusion cystic lesion: -CT abs/pelvis showed adnexal mass with differential ovarian cyst vs. lymphocele with pedunculated uterine fibroids. Appreciate wet process operator recs given multiple abdominal surgeries likely peritoneal inclusion cyst. Follow-up imaging recommended in 6-12 months for surveillance. -Appreciate wet process operator recs, flank pain unlikely to by gynecological in origin. Elevated CA-125 non-specific in premenopausal woman. Also discussed with pt need for contraception. Pt may consider paragard IUD. #Type I diabetes mellitus, history of non-ketotic hyperglycemia: -Resume insulin Detemir and meal time sliding scale -Appreciate endocrinology recs lispro 2 units with meals and sliding scale. 1 unit for each 50 above 150. Detemir at 26 units. POCT ACHS, and hypoglycemia protocol. F: none, indicated at this time E: replete as needed N: diabetic diet DVT prophylaxis: heparin subq Full Code Signature/Cosignature/Attestation: Attending AttestationI saw and evaluated the patient. I personally obtained the vitale and critical portions of the history and physical exam or was physically present for vitale and critical portions performed by the resident/fellow. I reviewed the resident/fellow?s documentation and discussed the patient with the resident/fellow. I agree with the resident/fellow?s medical decision making as documented in the resident?s note. I personally evaluated the patient (as noted in the above attestation) on 05-Feb-2018 Electronic Signatures: Josee Collins (Resident)) (Signed 05-Feb-2018 15:03) Authored: Service, Subjective Data, Objective Data, Assessment and Plan, Signature/Cosignature/Attestation Marleen Goldstein) (Signed 05-Feb-2018 17:30) Authored: Signature/Cosignature/Attestation Co-Signer: Service, Subjective Data, Objective Data, Assessment and Plan, Signature/Cosignature/Attestation Last Updated: 05-Feb-2018 17:30 by Marleen Goldstein) GLUCOSE-POCT Collected: 02/05/2018 Status: F Source: [facility] 11:50 AM HOSPITALS REPOSITORY TYPE CODE TESTS RESULT OUT OF RANGE REFERENCE UNITS LAB GLUP(LOINC) 74 - 99 mg/dL 91 GLUCOSE-POCT Performed By: #### GLUPO #### [facility] [address] [place] [address] DAILY PROGRESS Observed: 02/05/2018 Status: COMPLETED Source: [facility] NOTE-RENAL 11:28 AM HOSPITALS REPOSITORY Service: Renal Subjective Data: BERTRAM AMBROSE is a 37 year old Female who is Hospital Day # 8 and POD #4 for 23g PPV OS with endolaser and TRISTAN OS. Overnight Events: Patient had an uneventful night. Additional Information: increased UOP yesterday patient feels better Objective Data: Objective Information: T PRBPSpO2 [id number]% Date/Time02/05 10: 10: 10: 10: 10:00 Range(36C - 36.9C ) (80 - 97 ) (18 - 18 ) (117 - 152 )/ (70 - 80 ) (99% - 100% ) Highest temp of 36.9 C was recorded at 02/05 5:18 Pain with Activity reported at 02/05 9:45: 6 Pain at Rest reported at 02/05 9:45: 6 Physical Exam: Constitutional: conscious, alert. oriented, eye patch Head/Neck: Neck supple, no apparent injury, No JVD, trachea midline, no bruits Respiratory/Thorax: CTAB Cardiovascular: normal s1,s2 no rub or audible murmur Gastrointestinal: soft lax abdomen, nondistended nontender, +BS Extremities: no LL edema or swelling Neurological: grossly intact Skin: normal Medication: Medications: Continuous Medications No continuous medications are active Scheduled Medications 1. Carvedilol: 25 mg Oral 2 Times a Day 2. Cyclopentolate 1% Ophthalmic: 1 drop(s) Left Eye 2 Times a Day 3. Docusate: 100 mg Oral 2 Times a Day 4. Erythromycin 0.5% Ophthalmic: 0.5 inch(es) Left Eye Every 24 Hours 5. Gabapentin: 300 mg Oral 2 Times a Day 6. guaiFENesin Extended Release: 600 mg Oral Every 12 Hours 7. Heparin SubCutaneous: 5000 unit(s) SubCutaneous Every 12 Hours 8. Insulin Detemir (Levemir) Injectable: 32 unit(s) SubCutaneous At Bedtime 9. Insulin Lispro (HumaLOG) Injectable: 6 unit(s) SubCutaneous 3 Times a Day Before Meals 10. Insulin Lispro Customizable Corrective Scale: unit(s) SubCutaneous 3 Times a Day Before Meals 11. Lactated Ringers IV Bolus: 1000 mL IntraVenous Piggyback Once 12. levoFLOXacin: 750 mg Oral Every 48 Hours 13. Moxifloxacin 0.5% Ophthalmic: 1 drop(s) Left Eye 4 Times a Day 14. NIFEdipine Extended Release: 60 mg Oral Daily 15. Pravastatin: 40 mg Oral Daily 16. prednisoLONE 1% Ophthalmic: 1 drop(s) Left Eye Every 6 Hours 17. predniSONE: 5 mg Oral Daily 18. Sodium Bicarbonate: 1300 mg Oral Every 12 Hours 19. Tacrolimus: 3 mg Oral <User Schedule> PRN Medications 1. Acetaminophen: 650 mg Oral Every 4 Hours 2. Albuterol 2.5 mg/ 3 mL Nebulizer Soln: 3 mL Inhalation Every 6 Hours 3. Dextrose 50% in Water Injectable: 25 gram(s) IntraVenous Push Every 15 Minutes 4. Glucagon Injectable: 1 mg IntraMuscular Every 15 Minutes 5. Ondansetron: 8 mg Oral Every 12 Hours 6. oxyCODONE Immediate Release: 5 mg Oral Every 4 Hours 7. Polyethylene Glycol: 17 gram(s) Oral Daily 8. Zolpidem: 10 mg Oral At Bedtime Conditional Medication Orders 1. Dextrose 10% in Water Infusion: 1000 mL IntraVenous <Continuous> Currently Suspended Medications 1. Mycophenolate Mofetil: 500 mg Oral Every 12 Hours Recent Lab Results: Results: I have reviewed these laboratory results: Glucose_POCT 05-Feb-2018 08:01:00 ResultValue Glucose-POCT 121 H Complete Blood Count 05-Feb-2018 06:27:00 ResultValue White Blood Cell Count 4.7 Nucleated Erythrocyte Count 0.0 Red Blood Cell Count 3.16 L HGB 8.7 L HCT 26.7 L MCV 84 MCHC 32.6 PLT 294 RDW-CV 16.2 H Renal Function Panel 05-Feb-2018 06:27:00 ResultValue Glucose, Serum 134 H NA 141 K 3.8 CL 108 H Bicarbonate, Serum 27 Anion Gap, Serum 10 BUN 32 H CREAT 2.22 H GFR-Non 25 A GFR- 30 A Calcium, Serum 9.1 Phosphorus, Serum 3.5 ALB 2.6 L Assessment and Plan: Assessment: Patient is a 37 year old female with ESRD 2/2 DM type 1 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 Patient was presented to the OSH on 01/27/2018 with fever, chills, and cough and admitted to ICU with HCAP, Acute respiratory failure requiring BiPAP, and NEL with Cr 3.9. Patient received Tacrolimus sublingual and IV steroids. MMF was held. Patient was transferred to [facility] for further management. Transplant nephrology consulted for NEL in DDKT. serum creatinine is stable, with good amount of UOP 4400cc, dose of tacrolimus was changed to 3mg twice a day . DC bicarb tabs check tacrolimus level tomorrow Signature/Cosignature/Attestation: Attending AttestationI saw and evaluated the patient. I personally obtained the vitale and critical portions of the history and physical exam or was physically present for vitale and critical portions performed by the resident/fellow. I reviewed the resident/fellow?s documentation and discussed the patient with the resident/fellow. I agree with the resident/fellow?s medical decision making as documented in the resident?s note. I personally evaluated the patient (as noted in the above attestation) on 05-Feb-2018 Comments/ Additional Findings Suggest to stop oral bicarbonate Pt with auto diuresis Check tacrolimus level am of 02/06 Electronic Signatures: Dorcas Acevedo) (Signed 05-Feb-2018 17:17) Authored: Signature/Cosignature/Attestation Carlos A Andrea (Fellow)) (Signed 05-Feb-2018 11:37) Authored: Service, Assessment/Plan Review, Subjective Data, Objective Data, Assessment and Plan Last Updated: 05-Feb-2018 17:17 by Dorcas Acevedo) GLUCOSE-POCT Collected: 02/05/2018 Status: F Source: [facility] 8:01 AM HOSPITALS REPOSITORY TYPE CODE TESTS RESULT OUT OF RANGE REFERENCE UNITS LAB GLUP(LOINC) 74 - 99 mg/dL High 121 GLUCOSE-POCT Performed By: #### GLUPO #### [facility] [facility] [id number] [place] [address] CBC Collected: 02/05/2018 Status: F Source: [facility] 6:27 AM HOSPITALS REPOSITORY TYPE CODE TESTS RESULT OUT OF REFERENCE UNITS RANGE LAB WBCR(LOINC 4.4 - 11.3 x10E9/L ) WBC 4.7 LAB NRBC(LOINC 0.0-0.0 /100 WBC ) NUCLEATED RBC 0.0 LAB RBCCT(LOIN 4.00 - 5.20 x10E12/L C) Low RBC 3.16 LAB HGB(LOINC) 12.0 - 16.0 g/dL Low HGB 8.7 LAB HCT(LOINC) 36.0 - 46.0 % Low HCT 26.7 LAB MCV(LOINC) 80 - 100 fL MCV 84 LAB MCHC2(LOIN 32.0 - 36.0 g/dL C) MCHC 32.6 LAB PLTCT(LOIN 150 - 450 x10E9/L C) PLT 294 LAB RDWCV(LOIN 11.5 - 14.5 % C) High RDW-CV 16.2 Performed By: #### CBC #### [facility] [address] [place] [address] RENAL FUNCTION PANEL Collected: 02/05/2018 Status: F Source: [facility] 6:27 AM HOSPITALS REPOSITORY TYPE CODE TESTS RESULT OUT OF RANGE REFERENCE UNITS LAB GLU(LOINC) 74 - 99 mg/dL High GLUCOSE 134 LAB SOD(LOINC) 136 - 145 mmol/L SODIUM 141 LAB K(LOINC) 3.5 - 5.3 mmol/L POTASSIUM 3.8 LAB CHLOR(LOIN 98 - 107 mmol/L C) High CHLORIDE 108 LAB BIC(LOINC) 21 - 32 mmol/L BICARBONATE 27 LAB ANGAP(LOIN 10 - 20 mmol/L C) ANION GAP 10 LAB UREA(LOINC 6 - 23 mg/dL ) High UREA NITROGEN 32 LAB CREA(LOINC 0.50 - 1.05 mg/dL ) High CREATININE 2.22 LAB GFRFN(LOIN >60 mL/min/1.7 C) 3m2 GFR-NON Abnormal AM. 25 LAB GFRAA(LOIN >60 mL/min/1.7 C) 3m2 GFR- Abnormal AM. 30 Result Comment: CALCULATIONS OF ESTIMATED GFR ARE PERFORMED USING THE MDRD STUDY EQUATION FOR THE IDMS-TRACEABLE CREATININE METHODS. CLIN CHEM 2007;53:766-72 LAB CA(LOINC) 8.6 - 10.6 mg/dL CALCIUM 9.1 LAB PHOS(LOINC) 2.5 - 4.9 mg/dL PHOSPHORUS 3.5 Result Comment: The performance characteristics of phosphorus testing in heparinized plasma have been validated by the individual laboratory site where testing is performed. Testing on heparinized plasma is not approved by the FDA; however, such approval is not necessary. LAB ALB(LOINC) 3.4 - 5.0 g/dL Low ALBUMIN 2.6 Performed By: #### RENAL #### [facility] [address] [place] [address] TACROLIMUS Collected: 02/05/2018 Status: F Source: [facility] 6:27 AM HOSPITALS REPOSITORY TYPE CODE TESTS RESULT OUT OF REFERENCE UNITS RANGE LAB FK506(LOIN 2.0 - 15.0 ng/mL C) TACROLIMUS 3.0 Result Comment: NOTE: Result was obtained using a chemiluminescent microparticle immunoassay (CMIA) on the Public Health Inspector i system. Optimal therapeutic ranges for immuno- suppressant drugs depend upon an individual patient's current clinical state, type of organ transplant, time post-transplant, co-administration of other immunosuppressants, and other clinical factors. The results of this test should be correlated with additional clinical and laboratory data before changes in treatment regimens are made. Performed By: #### FK506 #### [facility] [address] [place], [place] [id number] GLUCOSE-POCT Collected: 02/04/2018 Status: F Source: [facility] 8:06 PM HOSPITALS REPOSITORY TYPE CODE TESTS RESULT OUT OF RANGE REFERENCE UNITS LAB GLUP(LOINC) 74 - 99 mg/dL High 220 GLUCOSE-POCT Performed By: #### GLUPO #### [facility] [address] [facility] [place] [address] DAILY PROGRESS Observed: 02/04/2018 Status: COMPLETED Source: [facility] NOTE-ENDOCRINOLOGY 5:58 PM HOSPITALS REPOSITORY Consult Type: subsequent visit/care Service: Endocrinology Subjective Data: BERTRAM AMBROSE is a 37 year old Female who is Hospital Day # 7 and POD #3 for 23g PPV OS with endolaser and TRISTAN OS. Patient is doing well, tolerating PO intake. She complained of LLQ pain and constipation. Objective Data: Objective Information: T PRBPSpO2 [id number]% Date/Time02/04 14: 14: 14: 14: 14:07 Range(36.2C - 36.6C ) (78 - 89 ) (18 - 18 ) (146 - 167 )/ (70 - 80 ) (98% - 100% ) Pain with Activity reported at 02/03 21:37: 10 Pain at Rest reported at 02/03 21:37: 10 Physical Exam: Constitutional: Well developed, awake/alert/oriented x3, no distress, alert and cooperative Respiratory/Thorax: GBAE ausculted anteriorly Cardiovascular: S1-S2 regular Gastrointestinal: BS+ soft, LLQ tenderness on minimal palpation Extremities: Neg LLE Psychological: Appropriate mood and behavior Skin: warm and dry Medication: Medications: Continuous Medications No continuous medications are active Scheduled Medications 1. Carvedilol: 25 mg Oral 2 Times a Day 2. Cyclopentolate 1% Ophthalmic: 1 drop(s) Left Eye 2 Times a Day 3. Docusate: 100 mg Oral 2 Times a Day 4. Erythromycin 0.5% Ophthalmic: 0.5 inch(es) Left Eye Every 24 Hours 5. Gabapentin: 300 mg Oral 2 Times a Day 6. guaiFENesin Extended Release: 600 mg Oral Every 12 Hours 7. Heparin SubCutaneous: 5000 unit(s) SubCutaneous Every 12 Hours 8. Insulin Detemir (Levemir) Injectable: 32 unit(s) SubCutaneous At Bedtime 9. Insulin Lispro (HumaLOG) Injectable: 6 unit(s) SubCutaneous 3 Times a Day Before Meals 10. Insulin Lispro Customizable Corrective Scale: unit(s) SubCutaneous 3 Times a Day Before Meals 11. Lactated Ringers IV Bolus: 1000 mL IntraVenous Piggyback Once 12. levoFLOXacin: 750 mg Oral Every 48 Hours 13. Moxifloxacin 0.5% Ophthalmic: 1 drop(s) Left Eye 4 Times a Day 14. NIFEdipine Extended Release: 60 mg Oral Daily 15. Pravastatin: 40 mg Oral Daily 16. prednisoLONE 1% Ophthalmic: 1 drop(s) Left Eye Every 6 Hours 17. predniSONE: 5 mg Oral Daily 18. Sodium Bicarbonate: 1300 mg Oral Every 12 Hours 19. Tacrolimus: 2 mg Oral <User Schedule> PRN Medications 1. Acetaminophen: 650 mg Oral Every 4 Hours 2. Albuterol 2.5 mg/ 3 mL Nebulizer Soln: 3 mL Inhalation Every 6 Hours 3. Dextrose 50% in Water Injectable: 25 gram(s) IntraVenous Push Every 15 Minutes 4. Glucagon Injectable: 1 mg IntraMuscular Every 15 Minutes 5. Ondansetron: 8 mg Oral Every 12 Hours 6. oxyCODONE Immediate Release: 5 mg Oral Every 4 Hours 7. Polyethylene Glycol: 17 gram(s) Oral Daily 8. Zolpidem: 10 mg Oral At Bedtime Conditional Medication Orders 1. Dextrose 10% in Water Infusion: 1000 mL IntraVenous <Continuous> Currently Suspended Medications 1. Mycophenolate Mofetil: 500 mg Oral Every 12 Hours Recent Lab Results: Results: I have reviewed these laboratory results: Glucose_POCT Trending View [id number] 16:40:00 04-Feb-2018 11:47:00 04-Feb-2018 07:40:00 Glucose-[id number] H 102 H 179 H Complete Blood Count 04-Feb-2018 06:28:00 ResultValue White Blood Cell Count 4.7 Nucleated Erythrocyte Count 0.0 Red Blood Cell Count 3.37 L HGB 9.5 L HCT 28.6 L MCV 85 MCHC 33.2 PLT 309 RDW-CV 16.0 H Renal Function Panel 04-Feb-2018 06:28:00 ResultValue Glucose, Serum 193 H NA 141 K 4.0 CL 108 H Bicarbonate, Serum 23 Anion Gap, Serum 14 BUN 28 H CREAT 2.35 H GFR-Non 23 A GFR- 28 A Calcium, Serum 8.9 Phosphorus, Serum 2.8 ALB 2.6 L Tacrolimus, Blood 04-Feb-2018 06:28:00 ResultValue Tacrolimus, Blood 2.9 Radiology Results: Results: Impression: Unremarkable ultrasound and Doppler evaluation of the transplant kidney as detailed above. Incidentally noted is the partially visualized right ovarian cyst, as seenon recent CT scan. Follow-up can be obtained in 6-8 weeks to document resolution or growth. Ultrasound Renal Bilateral [Feb 01 2018 9:37AM] Assessment and Plan: Assessment: Ms. 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 Endocrinology was consulted for inpatient management of diabetes. 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 Her home regimen is detemir 32 units at bedtime, novolog SSI with meals. Her Hba1c was 11.6% on 01/30/18. Of note she was found to have bilateral retinal detachment s/p repair on saturday. ROS is positive for blurry vision and back pain. BG and labs reviewed. Plan: - Continue levemir 32 units at bedtime - Continue lispro 6 units with meals -Continue sliding scale with meals. 1 unit for each 50 mg/dl above 150 - POCT ACHS - Diabetic diet - Hypoglycemia protocol - Above communicated to primary team Patient was discussed with Dr. Persaud Electronic Signatures: Kenzie Edward (Resident)) (Signed 04-Feb-2018 18:04) Authored: Service, Subjective Data, Objective Data, Assessment and Plan, Signature/Cosignature/Attestation Linn Persaud) (Signed 04-Feb-2018 23:09) Authored: Signature/Cosignature/Attestation Co-Signer: Service, Subjective Data, Objective Data, Assessment and Plan, Signature/Cosignature/Attestation Last Updated: 04-Feb-2018 23:09 by Linn Persaud) GLUCOSE-POCT Collected: 02/04/2018 Status: F Source: [facility] 4:40 PM HOSPITALS REPOSITORY TYPE CODE TESTS RESULT OUT OF RANGE REFERENCE UNITS LAB GLUP(LOINC) 74 - 99 mg/dL High 144 GLUCOSE-POCT Performed By: #### GLUPO #### [facility] [id number] [place] [place] [address] HEMOGLOBIN A1C Collected: 02/04/2018 Status: CANCELLED Source: [facility] 2:50 PM HOSPITALS REPOSITORY Order Comment: TEST HEMOGLOBIN A1C WAS CANCELLED, 02/05/2018 15:15 DUPLICATE ORDER. TYPE CODE TESTS RESULT OUT OF REFERENCE UNITS RANGE LAB HBA1C(LOINC ) HGB A1C Canceled Result Comment: Diagnosis of Diabetes-Adults Non-Diabetic: < or = 5.6% Increased risk for developing diabetes: 5.7-6.4% Diagnostic of diabetes: > or = 6.5% . Monitoring of Diabetes Age (y) Therapeutic Goal (%) Adults: >18 <7.0 Pediatrics: 13-18 <7.5 7-12 <8.0 0- 6 7.5-8.5 [place] [employer]. Diabetes Care 33(S1), Jun 2009. LAB ESAVG(LOINC) EST.AVG.GLUCOSE Canceled LAB A1CHB(LOINC) % HGB A1C Canceled Result Comment: Diagnosis of Diabetes-Adults Non-Diabetic: < or = 5.6% Increased risk for developing diabetes: 5.7-6.4% Diagnostic of diabetes: > or = 6.5% . Monitoring of Diabetes Age (y) Therapeutic Goal (%) Adults: >18 <7.0 Pediatrics: 13-18 <7.5 7-12 <8.0 0- 6 7.5-8.5 [place]. Diabetes Care 33(S1), Jun 2009. Performed By: #### HBA1E #### [facility] [id number] [place] [address] DAILY PROGRESS Observed: 02/04/2018 Status: COMPLETED Source: [facility] 1:44 PM HOSPITALS REPOSITORY Service: Renal Subjective Data: BERTRAM AMBROSE is a 37 year old Female who is Hospital Day # 7 and POD #3 for 23g PPV OS with endolaser and TRISTAN OS. Overnight Events: Patient had an uneventful night. Objective Data: Objective Information: T PRBPSpO2 [id number]/[id number]% Date/Time02/04 5: 5: 5: 5: 5:21 Range(36.4C - 36.6C ) (78 - 89 ) (18 - 18 ) (146 - 167 )/ (70 - 79 ) (98% - 100% ) Pain with Activity reported at 02/03 21:37: 10 Pain at Rest reported at 02/03 21:37: 10 Physical Exam: Constitutional: conscious, alert. oriented, eye patch Head/Neck: Neck supple, no apparent injury, No JVD, trachea midline, no bruits Respiratory/Thorax: chest clear anteriorly Cardiovascular: normal s1,s2 no rub or audible murmur Genitourinary: soft, lax, non distended non tender Extremities: no LL edema or swelling Neurological: grossly intact Skin: normal Medication: Medications: Continuous Medications No continuous medications are active Scheduled Medications 1. Carvedilol: 25 mg Oral 2 Times a Day 2. Cyclopentolate 1% Ophthalmic: 1 drop(s) Left Eye 2 Times a Day 3. Docusate: 100 mg Oral 2 Times a Day 4. Erythromycin 0.5% Ophthalmic: 0.5 inch(es) Left Eye Every 24 Hours 5. Gabapentin: 300 mg Oral 2 Times a Day 6. guaiFENesin Extended Release: 600 mg Oral Every 12 Hours 7. Heparin SubCutaneous: 5000 unit(s) SubCutaneous Every 12 Hours 8. Insulin Detemir (Levemir) Injectable: 32 unit(s) SubCutaneous At Bedtime 9. Insulin Lispro (HumaLOG) Injectable: 6 unit(s) SubCutaneous 3 Times a Day Before Meals 10. Insulin Lispro Mild Corrective Scale: unit(s) SubCutaneous 3 Times a Day Before Meals 11. Lactated Ringers IV Bolus: 1000 mL IntraVenous Piggyback Once 12. levoFLOXacin: 750 mg Oral Every 48 Hours 13. Moxifloxacin 0.5% Ophthalmic: 1 drop(s) Left Eye 4 Times a Day 14. NIFEdipine Extended Release: 60 mg Oral Daily 15. Pravastatin: 40 mg Oral Daily 16. prednisoLONE 1% Ophthalmic: 1 drop(s) Left Eye Every 6 Hours 17. predniSONE: 5 mg Oral Daily 18. Sodium Bicarbonate: 1300 mg Oral Every 12 Hours 19. Tacrolimus: 2 mg Oral <User Schedule> PRN Medications 1. Acetaminophen: 650 mg Oral Every 4 Hours 2. Albuterol 2.5 mg/ 3 mL Nebulizer Soln: 3 mL Inhalation Every 6 Hours 3. Dextrose 50% in Water Injectable: 25 gram(s) IntraVenous Push Every 15 Minutes 4. Glucagon Injectable: 1 mg IntraMuscular Every 15 Minutes 5. Ondansetron: 8 mg Oral Every 12 Hours 6. oxyCODONE Immediate Release: 5 mg Oral Every 4 Hours 7. Polyethylene Glycol: 17 gram(s) Oral Daily 8. Zolpidem: 10 mg Oral At Bedtime Conditional Medication Orders 1. Dextrose 10% in Water Infusion: 1000 mL IntraVenous <Continuous> Currently Suspended Medications 1. Mycophenolate Mofetil: 500 mg Oral Every 12 Hours Recent Lab Results: Results: I have reviewed these laboratory results: Glucose_POCT 04-Feb-2018 11:47:00 ResultValue Glucose-POCT 102 H Complete Blood Count 04-Feb-2018 06:28:00 ResultValue White Blood Cell Count 4.7 Nucleated Erythrocyte Count 0.0 Red Blood Cell Count 3.37 L HGB 9.5 L HCT 28.6 L MCV 85 MCHC 33.2 PLT 309 RDW-CV 16.0 H Renal Function Panel 04-Feb-2018 06:28:00 ResultValue Glucose, Serum 193 H NA 141 K 4.0 CL 108 H Bicarbonate, Serum 23 Anion Gap, Serum 14 BUN 28 H CREAT 2.35 H GFR-Non 23 A GFR- 28 A Calcium, Serum 8.9 Phosphorus, Serum 2.8 ALB 2.6 L Tacrolimus, Blood 04-Feb-2018 06:28:00 ResultValue Tacrolimus, Blood 2.9 Assessment and Plan: Assessment: Patient is a 37 year old female with ESRD 2/2 DM type 1 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 Patient was presented to the OSH on 01/27/2018 with fever, chills, and cough and admitted to ICU with HCAP, Acute respiratory failure requiring BiPAP, and NEL with Cr 3.9. Patient received Tacrolimus sublingual and IV steroids. MMF was held. Patient was transferred to [facility] for further management. Transplant nephrology consulted for NEL in DDKT. improving renal function 2.3 today on bicarbonate tabs 1300mg twice a day, with improving renal functions, she is unlikely to need it after discharge increase tacrolimus dose to 2mg twice a day, level is low, follow trough tomorrow pt likely can be restarted on outpatient dose of MMF, after discharge Needs to establish follow up in transplant clinic - please let our team know if wants to f/u at due to relocation to [place] Signature/Cosignature/Attestation: Attending AttestationI saw and evaluated the patient. I personally obtained the vitale and critical portions of the history and physical exam or was physically present for vitale and critical portions performed by the resident/fellow. I reviewed the resident/fellow?s documentation and discussed the patient with the resident/fellow. I agree with the resident/fellow?s medical decision making as documented in the resident?s note. I personally evaluated the patient (as noted in the above attestation) on 04-Feb-2018 Comments/ Additional Findings cr near to baseline, FK level subtherapeutic- suggest to increase tacrolimus to 3 mg twice a day and check trough on AM of 02/06 Electronic Signatures: Dorcas Acevedo) (Signed 04-Feb-2018 18:11) Authored: Signature/Cosignature/Attestation Carlos A Andrea (Fellow)) (Signed 04-Feb-2018 14:18) Authored: Service, Assessment/Plan Review, Subjective Data, Objective Data, Assessment and Plan Last Updated: 04-Feb-2018 18:11 by Dorcas Acevedo) GLUCOSE-POCT Collected: 02/04/2018 Status: F Source: [facility] 11:47 AM HOSPITALS REPOSITORY TYPE CODE TESTS RESULT OUT OF RANGE REFERENCE UNITS LAB GLUP(LOINC) 74 - 99 mg/dL High 102 GLUCOSE-POCT Performed By: #### GLUPO #### [facility] [address] [place] [address] GLUCOSE-POCT Collected: 02/04/2018 Status: F Source: [facility] 7:40 AM HOSPITALS REPOSITORY TYPE CODE TESTS RESULT OUT OF RANGE REFERENCE UNITS LAB GLUP(LOINC) 74 - 99 mg/dL High 179 GLUCOSE-POCT Performed By: #### GLUPO #### [facility] [address] [place] [address] DAILY PROGRESS Observed: 02/04/2018 Status: COMPLETED Source: [facility] NOTE-INFECTIOUS DISEASE 6:32 AM HOSPITALS REPOSITORY Service: Infectious Disease Subjective Data: BERTRAM AMBROSE is a 37 year old Female who is Hospital Day # 7 and POD #3 for 23g PPV OS with endolaser and TRISTAN OS. No acute events overnight. Patient reports slight headache with watery drainage of left eye. Required 1x oxycodone 7.5 mg last night. Able to get up and walk to bathroom with cane, still feels weaker than baseline. Shortness of breath, abdominal, and flank pain improved greatly from admission. Has not had bowel movement in 4 days. Objective Data: Objective Information: T PRBPSpO2 [id number]% Date/Time02/04 5: 5: 5: 5: 5:21 Range(36.4C - 36.6C ) (78 - 89 ) (18 - 18 ) (146 - 167 )/ (70 - 80 ) (98% - 100% ) Pain with Activity reported at 02/03 21:37: 10 Pain at Rest reported at 02/03 21:37: 10 T PRBPSpO2 [id number]/20132% Date/Time02/04 5: 5: 5: 5: 5:21 Range(36.4C - 36.6C ) (78 - 89 ) (18 - 18 ) (146 - 167 )/ (70 - 80 ) (98% - 100% ) Physical Exam: Constitutional: Looks well in bed not in pain or distress Eyes: Improved visual field in right eye with left eye patched s/p surgery ENMT: moist mucosal membranes Head/Neck: Supple, scar of prior tracheostomy Respiratory/Thorax: lungs clear to auscultation bilaterally Cardiovascular: S1, S2 no murmur no added sounds Gastrointestinal: Mild abdominal tenderness diffusely over all 4 quadrants. Musculoskeletal: No swelling, erythema or induration Extremities: Right metatarsal foot amputation. No peripheral edema. Neurological: A&Ox3. No appreciable fnd's Psychological: Appropriate mood and behavior Skin: excessive scarring over the left lower leg, abdominal wall Medication: Medications: Continuous Medications 1. Sodium Chloride 0.9% Infusion: 1000 mL IntraVenous <Continuous> Scheduled Medications 1. Carvedilol: 25 mg Oral 2 Times a Day 2. Cyclopentolate 1% Ophthalmic: 1 drop(s) Left Eye 2 Times a Day 3. Erythromycin 0.5% Ophthalmic: 0.5 inch(es) Left Eye Every 24 Hours 4. Gabapentin: 300 mg Oral 2 Times a Day 5. guaiFENesin Extended Release: 600 mg Oral Every 12 Hours 6. Heparin SubCutaneous: 5000 unit(s) SubCutaneous Every 12 Hours 7. Insulin Detemir (Levemir) Injectable: 32 unit(s) SubCutaneous At Bedtime 8. Insulin Lispro (HumaLOG) Injectable: 6 unit(s) SubCutaneous 3 Times a Day Before Meals 9. Insulin Lispro Mild Corrective Scale: unit(s) SubCutaneous 3 Times a Day Before Meals 10. Lactated Ringers IV Bolus: 1000 mL IntraVenous Piggyback Once 11. levoFLOXacin: 750 mg Oral Every 48 Hours 12. Moxifloxacin 0.5% Ophthalmic: 1 drop(s) Left Eye 4 Times a Day 13. NIFEdipine Extended Release: 60 mg Oral Daily 14. Pravastatin: 40 mg Oral Daily 15. prednisoLONE 1% Ophthalmic: 1 drop(s) Left Eye Every 6 Hours 16. predniSONE: 5 mg Oral Daily 17. Sodium Bicarbonate: 1300 mg Oral Every 12 Hours 18. Tacrolimus: 2 mg Oral <User Schedule> PRN Medications 1. Acetaminophen: 650 mg Oral Every 4 Hours 2. Albuterol 2.5 mg/ 3 mL Nebulizer Soln: 3 mL Inhalation Every 6 Hours 3. Dextrose 50% in Water Injectable: 25 gram(s) IntraVenous Push Every 15 Minutes 4. Docusate: 100 mg Oral 2 Times a Day 5. Glucagon Injectable: 1 mg IntraMuscular Every 15 Minutes 6. Ondansetron: 8 mg Oral Every 12 Hours 7. oxyCODONE Immediate Release: 5 mg Oral Every 4 Hours 8. Zolpidem: 10 mg Oral At Bedtime Conditional Medication Orders 1. Dextrose 10% in Water Infusion: 1000 mL IntraVenous <Continuous> Currently Suspended Medications 1. Mycophenolate Mofetil: 500 mg Oral Every 12 Hours Recent Lab Results: Results: I have reviewed these laboratory results: Glucose_POCT Trending View [id number] 07:40:00 03-Feb-2018 23:45:00 Glucose-[id number] H 161 H Complete Blood Count 04-Feb-2018 06:28:00 ResultValue White Blood Cell Count 4.7 Nucleated Erythrocyte Count 0.0 Red Blood Cell Count 3.37 L HGB 9.5 L HCT 28.6 L MCV 85 MCHC 33.2 PLT 309 RDW-CV 16.0 H Renal Function Panel 04-Feb-2018 06:28:00 ResultValue Glucose, Serum 193 H NA 141 K 4.0 CL 108 H Bicarbonate, Serum 23 Anion Gap, Serum 14 BUN 28 H CREAT 2.35 H GFR-Non 23 A GFR- 28 A Calcium, Serum 8.9 Phosphorus, Serum 2.8 ALB 2.6 L Assessment and Plan: Assessment: Patient is a 37 years old female with Type I diabetes mellitus, renal transplantation with history of rejection on tacrolimus, prednisone, and mycophenolate mofetil, 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 Patient complaining of shortness of breath and bilateral flank pain on admission. Hospital course at [facility] complicated by ICU stay requiring Bipap. CT abs/pelvis showed abdominal cystic lesion, bilateral atrophic tunica-biloxi kidneys. Renal ultrasound negative for hydronephrosis or nephrolithiasis. NEL in setting of sepsis less likely acute transplant rejection. Had acute monocular blurry vision found to have bilateral retinal detachment s/p surgery of left eye. Will continue 3 week course of levofloxacin renally dosed. Today (02/04): Overall improved kidney function, improved shortness of breath, will work with PT today. -S/p left eye surgery. Improved headache behind left eye. On 7.5 mg oxycodone every 4 hrs. Following optho recs. -POCT blood glucose levels improved from yesterday most recently 251-> 161. Follow endocrinology recs. Detemir at 32 units. Lispro 6 units TID before meals. Mild corrective ISS. -Shortness of breath improved. Now satting well on room air. Continue pulmonary hygiene. Transition to oral levofloxacin 750 mg every 48 hours. Will need 3 week course. Start (01/28-02/11) -Creat improved at 2.35, at baseline. Will need to follow with renal transplant after discharge. Continue strict I/O's. FeNa 2.4%. -Tacrolimus level 2.9. F/up renal transplant recommendations for increasing tacrolimus 2mg BID. -Discontinue mIVF 113 mL/hr NS. Bolus 1L LR as needed with goal SBP>90. 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 Will need 3 week course. -CXR revealed patchy bilateral infiltrates -Continue pulmonary hygiene with respiratory therapy -Follow up sputum culture for legionella BCYE media -Trend daily CBC #Renal transplant with history of rejection, on tacrolimus, mycophenolate, and prednisone #Acute kidney injury in setting of infection, slowly recovering creat at 2.75 -Baseline creat (2-2.5). Most recent creat 2.3 on 01/08/18. At 2.35 today (02/04). -Nephrology consult to evaluate for rejection . Appreciate recs: FeNa 2.4%, renal ultrasound without evidence of hydronephrosis or nephrolithiasis and findings consistent with CKD. -Patient would like to continue follow up with her managing jeweler at [place]. -Continue tacrolimus and prednisone. Will hold mycophenolate for now. Restart mycophenolate at discharge -Uploaded CT abd/pelvis into system. Reveals bilateral kidney atrophy. Transplant in right iliac fossa. Diffuse atherosclerotic calcifications of aorta, superior mesenteric, inferior mesenteric, and splenic arteries. -Minimize contrast exposure -Avoid nephrotoxic medications -Trend daily rfp -Strict I/O's #Peritoneal inclusion cystic lesion: -CT abs/pelvis showed adnexal mass with differential ovarian cyst vs. lymphocele with pedunculated uterine fibroids. Appreciate wet process operator recs given multiple abdominal surgeries likely peritoneal inclusion cyst. Follow-up imaging recommended in 6-12 months for surveillance. -Appreciate wet process operator recs, flank pain unlikely to by gynecological in origin. Elevated CA-125 non-specific in premenopausal woman. Also discussed with pt need for contraception. Pt may consider paragard IUD. #Type I diabetes mellitus, history of non-ketotic hyperglycemia: -Resume insulin Detemir and meal time sliding scale -Appreciate endocrinology recs lispro 2 units with meals and sliding scale. 1 unit for each 50 above 150. Detemir at 26 units. POCT ACHS, and hypoglycemia protocol. F: none, indicated at this time E: replete as needed N: diabetic diet DVT prophylaxis: heparin subq Full Code Signature/Cosignature/Attestation: Attending AttestationI saw and evaluated the patient. I personally obtained the vitale and critical portions of the history and physical exam or was physically present for vitale and critical portions performed by the resident/fellow. I reviewed the resident/fellow?s documentation and discussed the patient with the resident/fellow. I agree with the resident/fellow?s medical decision making as documented in the resident?s note. I personally evaluated the patient (as noted in the above attestation) on 04-Feb-2018 Electronic Signatures: Josee Collins (Resident)) (Signed 04-Feb-2018 12:19) Authored: Service, Subjective Data, Objective Data, Assessment and Plan, Signature/Cosignature/Attestation Marleen Goldstein) (Signed 04-Feb-2018 17:59) Authored: Signature/Cosignature/Attestation Co-Signer: Service, Subjective Data, Objective Data, Assessment and Plan, Signature/Cosignature/Attestation Last Updated: 04-Feb-2018 17:59 by Marleen Goldstein) CBC Collected: 02/04/2018 Status: F Source: [facility] 6:28 AM [facility]ITALS REPOSITORY TYPE CODE TESTS RESULT OUT OF REFERENCE UNITS RANGE LAB WBCR(LOINC 4.4 - 11.3 x10E9/L ) WBC 4.7 LAB NRBC(LOINC 0.0-0.0 /100 WBC ) NUCLEATED RBC 0.0 LAB RBCCT(LOIN 4.00 - 5.20 x10E12/L C) Low RBC 3.37 LAB HGB(LOINC) 12.0 - 16.0 g/dL Low HGB 9.5 LAB HCT(LOINC) 36.0 - 46.0 % Low HCT 28.6 LAB MCV(LOINC) 80 - 100 fL MCV 85 LAB MCHC2(LOIN 32.0 - 36.0 g/dL C) MCHC 33.2 LAB PLTCT(LOIN 150 - 450 x10E9/L C) PLT 309 LAB RDWCV(LOIN 11.5 - 14.5 % C) High RDW-CV 16.0 Performed By: #### CBC #### [facility] [address] [place] [address] RENAL FUNCTION PANEL Collected: 02/04/2018 Status: F Source: [facility] 6:28 AM [facility]OSPITALS REPOSITORY TYPE CODE TESTS RESULT OUT OF RANGE REFERENCE UNITS LAB GLU(LOINC) 74 - 99 mg/dL High GLUCOSE 193 LAB SOD(LOINC) 136 - 145 mmol/L SODIUM 141 LAB K(LOINC) 3.5 - 5.3 mmol/L POTASSIUM 4.0 LAB CHLOR(LOIN 98 - 107 mmol/L C) High CHLORIDE 108 LAB BIC(LOINC) 21 - 32 mmol/L BICARBONATE 23 LAB ANGAP(LOIN 10 - 20 mmol/L C) ANION GAP 14 LAB UREA(LOINC 6 - 23 mg/dL ) High UREA NITROGEN 28 LAB CREA(LOINC 0.50 - 1.05 mg/dL ) High CREATININE 2.35 LAB GFRFN(LOIN >60 mL/min/1.7 C) 3m2 GFR-NON Abnormal AM. 23 LAB GFRAA(LOIN >60 mL/min/1.7 C) 3m2 GFR- Abnormal AM. 28 Result Comment: CALCULATIONS OF ESTIMATED GFR ARE PERFORMED USING THE MDRD STUDY EQUATION FOR THE IDMS-TRACEABLE CREATININE METHODS. CLIN CHEM 2007;53:766-72 LAB CA(LOINC) 8.6 - 10.6 mg/dL CALCIUM 8.9 LAB PHOS(LOINC) 2.5 - 4.9 mg/dL PHOSPHORUS 2.8 Result Comment: The performance characteristics of phosphorus testing in heparinized plasma have been validated by the individual laboratory site where testing is performed. Testing on heparinized plasma is not approved by the FDA; however, such approval is not necessary. LAB ALB(LOINC) 3.4 - 5.0 g/dL Low ALBUMIN 2.6 Performed By: #### RENAL #### [facility] [address] [place] [address] TACROLIMUS Collected: 02/04/2018 Status: F Source: [facility] 6:28 AM [facility]ITALS REPOSITORY TYPE CODE TESTS RESULT OUT OF REFERENCE UNITS RANGE LAB FK506(LOIN 2.0 - 15.0 ng/mL C) TACROLIMUS 2.9 Result Comment: NOTE: Result was obtained using a chemiluminescent microparticle immunoassay (CMIA) on the Public Health Inspector i system. Optimal therapeutic ranges for immuno- suppressant drugs depend upon an individual patient's current clinical state, type of organ transplant, time post-transplant, co-administration of other immunosuppressants, and other clinical factors. The results of this test should be correlated with additional clinical and laboratory data before changes in treatment regimens are made. Performed By: #### FK506 #### [facility] [address] [place], [place] [id number] HEMOGLOBIN A1C Collected: 02/04/2018 Status: CANCELLED Source: [facility] 6:28 AM [facility]OSPITALS REPOSITORY Order Comment: TEST HEMOGLOBIN A1C WAS CANCELLED, 02/05/2018 16:50 DUPLICATE ORDER - SEE [id number]. TYPE CODE TESTS RESULT OUT OF REFERENCE UNITS RANGE LAB HBA1C(LOINC ) HGB A1C Canceled Result Comment: Diagnosis of Diabetes-Adults Non-Diabetic: < or = 5.6% Increased risk for developing diabetes: 5.7-6.4% Diagnostic of diabetes: > or = 6.5% . Monitoring of Diabetes Age (y) Therapeutic Goal (%) Adults: >18 <7.0 Pediatrics: 13-18 <7.5 7-12 <8.0 0- 6 7.5-8.5 [place]. Diabetes Care 33(S1)Jun 2009. LAB ESAVG(LOINC) EST.AVG.GLUCOSE Canceled LAB A1CHB(LOINC) % HGB A1C Canceled Result Comment: Diagnosis of Diabetes-Adults Non-Diabetic: < or = 5.6% Increased risk for developing diabetes: 5.7-6.4% Diagnostic of diabetes: > or = 6.5% . Monitoring of Diabetes Age (y) Therapeutic Goal (%) Adults: >18 <7.0 Pediatrics: 13-18 <7.5 7-12 <8.0 0- 6 7.5-8.5 [place]. Diabetes Care 33(S1), Jun 2009. Performed By: #### HBA1E #### [facility] [address] [place] [address] GLUCOSE-POCT Collected: 02/03/2018 Status: F Source: [facility] 11:45 PM HOSPITALS REPOSITORY TYPE CODE TESTS RESULT OUT OF RANGE REFERENCE UNITS LAB GLUP(LOINC) 74 - 99 mg/dL High 161 GLUCOSE-POCT Performed By: #### GLUPO #### [facility] [address] [place] [address] GLUCOSE-POCT Collected: 02/03/2018 Status: F Source: [facility] 8:37 PM [facility] REPOSITORY TYPE CODE TESTS RESULT OUT OF RANGE REFERENCE UNITS LAB GLUP(LOINC) 74 - 99 mg/dL High 252 GLUCOSE-POCT Performed By: #### GLUPO #### [facility] [address] [place] [address] GLUCOSE-POCT Collected: 02/03/2018 Status: F Source: [place] 4:54 PM [facility] REPOSITORY TYPE CODE TESTS RESULT OUT OF RANGE REFERENCE UNITS LAB GLUP(LOINC) 74 - 99 mg/dL High 325 GLUCOSE-POCT Performed By: #### GLUPO #### [facility] [address] [place] [address] GLUCOSE-POCT Collected: 02/03/2018 Status: F Source: [place] 12:06 PM [facility] REPOSITORY TYPE CODE TESTS RESULT OUT OF RANGE REFERENCE UNITS LAB GLUP(LOINC) 74 - 99 mg/dL High 243 GLUCOSE-POCT Performed By: #### GLUPO #### [facility] [address] [place] [address] DAILY PROGRESS Observed: 02/03/2018 Status: COMPLETED Source: [facility] 10:00 AM HOSPITALS REPOSITORY Service: Renal Subjective Data: BERTRAM AMBROSE is a 37 year old Female who is Hospital Day # 6 and POD #2 for 23g PPV OS with endolaser and TRISTAN OS. Overnight Events: Patient had an uneventful night. Additional Information: Sensitive to light when patch off eye Feeling well Tolerating PO intake No symptoms Objective Data: Objective Information: T PRBPSpO2 [id number]/8098% Date/Time02/03 5:4802/03 5:4802/03 5:4802/03 5:4802/03 5:48 Range(36.1C - 37.1C ) (84 - 241 ) (18 - 20 ) (131 - 164 )/ (65 - 80 ) (91% - 98% ) Highest temp of 37.1 C was recorded at 02/02 13:12 Pain with Activity reported at 02/02 16:30: 4 Pain at Rest reported at 02/02 22:00: 10 Physical Exam: Constitutional: awake, interacive Eyes: patch on L eye ENMT: no oral lesions Respiratory/Thorax: clear bilateral anterior apices Cardiovascular: reg, no mrg Gastrointestinal: soft, NT, BS present Extremities: warm, dry, no edema Medication: Medications: Continuous Medications 1. Sodium Chloride 0.9% Infusion: 1000 mL IntraVenous <Continuous> Scheduled Medications 1. Carvedilol: 25 mg Oral 2 Times a Day 2. Cyclopentolate 1% Ophthalmic: 1 drop(s) Left Eye 2 Times a Day 3. Erythromycin 0.5% Ophthalmic: 0.5 inch(es) Left Eye Every 24 Hours 4. Gabapentin: 300 mg Oral 2 Times a Day 5. guaiFENesin Extended Release: 600 mg Oral Every 12 Hours 6. Heparin SubCutaneous: 5000 unit(s) SubCutaneous Every 12 Hours 7. Insulin Detemir (Levemir) Injectable: 26 unit(s) SubCutaneous At Bedtime 8. Insulin Lispro (HumaLOG) Injectable: 2 unit(s) SubCutaneous 3 Times a Day Before Meals 9. Insulin Lispro Mild Corrective Scale: unit(s) SubCutaneous 3 Times a Day Before Meals 10. Lactated Ringers IV Bolus: 1000 mL IntraVenous Piggyback Once 11. levoFLOXacin 750 mg IVPB/ Premix 150 mL: 150 mL IntraVenous Piggyback Every 48 Hours 12. Moxifloxacin 0.5% Ophthalmic: 1 drop(s) Left Eye 4 Times a Day 13. NIFEdipine Extended Release: 60 mg Oral Daily 14. Pravastatin: 40 mg Oral Daily 15. prednisoLONE 1% Ophthalmic: 1 drop(s) Left Eye Every 6 Hours 16. predniSONE: 5 mg Oral Daily 17. Sodium Bicarbonate: 1300 mg Oral Every 12 Hours 18. Tacrolimus: 2 mg Oral <User Schedule> PRN Medications 1. Acetaminophen: 650 mg Oral Every 4 Hours 2. Albuterol 2.5 mg/ 3 mL Nebulizer Soln: 3 mL Inhalation Every 6 Hours 3. Dextrose 50% in Water Injectable: 25 gram(s) IntraVenous Push Every 15 Minutes 4. Docusate: 100 mg Oral 2 Times a Day 5. Glucagon Injectable: 1 mg IntraMuscular Every 15 Minutes 6. oxyCODONE Immediate Release: 7.5 mg Oral Every 4 Hours 7. Zolpidem: 10 mg Oral At Bedtime Conditional Medication Orders 1. Dextrose 10% in Water Infusion: 1000 mL IntraVenous <Continuous> Currently Suspended Medications 1. Mycophenolate Mofetil: 500 mg Oral Every 12 Hours Recent Lab Results: Results: I have reviewed these laboratory results: Glucose_POCT 03-Feb-2018 07:16:00 ResultValue Glucose-POCT 245 H Complete Blood Count 03-Feb-2018 06:51:00 ResultValue White Blood Cell Count 6.2 Nucleated Erythrocyte Count 0.0 Red Blood Cell Count 3.21 L HGB 9.1 L HCT 26.7 L MCV 83 MCHC 34.1 PLT 299 RDW-CV 15.6 H Renal Function Panel 03-Feb-2018 06:51:00 ResultValue Glucose, Serum 288 H NA 140 K 3.9 CL 107 Bicarbonate, Serum 24 Anion Gap, Serum 13 BUN 29 H CREAT 2.65 H GFR-Non 20 A GFR- 24 A Calcium, Serum 9.0 Phosphorus, Serum 3.2 ALB 2.6 L Assessment and Plan: Assessment: Patient is a 37 year old female with ESRD 2/2 DM type 1 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 Patient was presented to the OSH on 01/27/2018 with fever, chills, and cough and admitted to ICU with HCAP, Acute respiratory failure requiring BiPAP, and NEL with Cr 3.9. Patient received Tacrolimus sublingual and IV steroids. MMF was held. Patient was transferred to [facility] for further management. Transplant nephrology consulted for NEL in DDKT. Her renal function is near to baseline Upon d/c, pt unlikely to need oral bicarbonate Update tacrolimus trough with goal level btwn 5-8 Upon d/c as well, pt likely can be restarted on outpatient dose of MMF Needs to establish follow up in transplant clinic - please let our team know if wants to f/u at due to relocation to [place] Electronic Signatures: Dorcas Acevedo) (Signed 03-Feb-2018 10:05) Authored: Service, Subjective Data, Objective Data, Assessment and Plan, Signature/Cosignature/Attestation Last Updated: 03-Feb-2018 10:05 by Dorcas Acevedo) DAILY PROGRESS Observed: 02/03/2018 Status: COMPLETED Source: [facility] 8:54 AM [facility]OSPITALS REPOSITORY Consult Type: subsequent visit/care Service: Endocrinology Subjective Data: BERTRAM AMBROSE is a 37 year old Female who is Hospital Day # 6 and POD #2 for 23g PPV OS with endolaser and TRISTAN OS. Objective Data: Objective Information: T PRBPSpO2 [id number]/8098% Date/Time02/03 5:48/3 5:48/3 5:489/3 5:489/3 5:48 Range(36.1C - 37.1C ) (84 - 241 ) (18 - 20 ) (131 - 164 )/ (65 - 80 ) (91% - 98% ) Highest temp of 37.1 C was recorded at 02/02 13:12 Pain with Activity reported at 02/02 16:30: 4 Pain at Rest reported at 02/02 22:00: 10 Physical Exam: Constitutional: Well developed, awake/alert/oriented x3, no distress, alert and cooperative Head/Neck: Neck supple, no apparent injury, thyroid without mass or tenderness, No JVD, trachea midline, no bruits Gastrointestinal: Nondistended, soft, non-tender, no rebound tenderness or guarding, no masses palpable, no organomegaly, +BS, no bruits Extremities: normal extremities, no cyanosis edema, contusions or wounds, no clubbing Neurological: alert and oriented x3, intact senses, motor, response and reflexes, normal strength Skin: Warm and dry, no lesions, no rashes Medication: Medications: ANTI-INFECTIVES: 1. levoFLOXacin 750 mg IVPB/ Premix 150 mL: 150 mL IntraVenous Piggyback Every 48 Hours CARDIOVASCULAR AGENTS: 1. Carvedilol: 25 mg Oral 2 Times a Day 2. NIFEdipine Extended Release: 60 mg Oral Daily CENTRAL NERVOUS SYSTEM AGENTS: 1. Acetaminophen: 650 mg Oral Every 4 Hours PRN 2. oxyCODONE Immediate Release: 7.5 mg Oral Every 4 Hours PRN 3. Gabapentin: 300 mg Oral 2 Times a Day 4. Zolpidem: 10 mg Oral At Bedtime PRN COAGULATION MODIFIERS: 1. Heparin SubCutaneous: 5000 unit(s) SubCutaneous Every 12 Hours GASTROINTESTINAL AGENTS: 1. Sodium Bicarbonate: 1300 mg Oral Every 12 Hours 2. Docusate: 100 mg Oral 2 Times a Day PRN HORMONES/HORMONE MODIFIERS: 1. predniSONE: 5 mg Oral Daily IMMUNOLOGIC AGENTS: 1. Tacrolimus: 2 mg Oral <User Schedule> METABOLIC AGENTS: 1. Insulin Detemir (Levemir) Injectable: 26 unit(s) SubCutaneous At Bedtime 2. Insulin Lispro (HumaLOG) Injectable: 2 unit(s) SubCutaneous 3 Times a Day Before Meals 3. Insulin Lispro Mild Corrective Scale: unit(s) SubCutaneous 3 Times a Day Before Meals 4. Pravastatin: 40 mg Oral Daily 5. Dextrose 50% in Water Injectable: 25 gram(s) IntraVenous Push Every 15 Minutes PRN 6. Glucagon Injectable: 1 mg IntraMuscular Every 15 Minutes PRN NUTRITIONAL PRODUCTS: 1. Lactated Ringers IV Bolus: 1000 mL IntraVenous Piggyback Once 2. Sodium Chloride 0.9% Infusion: 1000 mL IntraVenous <Continuous> RESPIRATORY AGENTS: 1. Albuterol 2.5 mg/ 3 mL Nebulizer Soln: 3 mL Inhalation Every 6 Hours PRN 2. guaiFENesin Extended Release: 600 mg Oral Every 12 Hours TOPICAL AGENTS: 1. Cyclopentolate 1% Ophthalmic: 1 drop(s) Left Eye 2 Times a Day 2. Erythromycin 0.5% Ophthalmic: 0.5 inch(es) Left Eye Every 24 Hours 3. Moxifloxacin 0.5% Ophthalmic: 1 drop(s) Left Eye 4 Times a Day 4. prednisoLONE 1% Ophthalmic: 1 drop(s) Left Eye Every 6 Hours Conditional Medication Orders 1. Dextrose 10% in Water Infusion: 1000 mL IntraVenous <Continuous> Currently Suspended Medications 1. Mycophenolate Mofetil: 500 mg Oral Every 12 Hours Recent Lab Results: Results: I have reviewed these laboratory results: Glucose_POCT Trending View [id number] 07:16:00 02-Feb-2018 21:24:00 02-Feb-2018 17:52:00 02-Feb-2018 13:36:00 02-Feb-2018 12:22:00 02-Feb-2018 11:15:00 02-Feb-2018 10:18:00 02-Feb-2018 08:52:00 Glucose-[id number] H 226 H 265 H 431 H 415 H 489 H 539 H >600 H Complete Blood Count 03-Feb-2018 06:51:00 ResultValue White Blood Cell Count 6.2 Nucleated Erythrocyte Count 0.0 Red Blood Cell Count 3.21 L HGB 9.1 L HCT 26.7 L MCV 83 MCHC 34.1 PLT 299 RDW-CV 15.6 H Renal Function Panel 03-Feb-2018 06:51:00 ResultValue Glucose, Serum 288 H NA 140 K 3.9 CL 107 Bicarbonate, Serum 24 Anion Gap, Serum 13 BUN 29 H CREAT 2.65 H GFR-Non 20 A GFR- 24 A Calcium, Serum 9.0 Phosphorus, Serum 3.2 ALB 2.6 L Assessment and Plan: Assessment: Patient is 37 years old female with hx of Type I diabetes mellitus, DDKT in 2011 in [place], rejection on tacrolimus, prednisone and mycophenolate mofetil, who was transferred from [facility] with legionnaires disease. Endocrinology was consulted for inpatient management of diabetes. 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 Her home regimen is detemir 32 units at bedtime, novolog SSI with meals. Her Hba1c was 11.6% on 01/30/18. Of note she was found to have bilateral retinal detachment so will be going for surgery today. ROS is positive for blurry vision and back pain. BG and labs reviewed. Plan: -Increase levemir to 32 units at bedtime -Increase lispro to 6 units with meals -Continue sliding scale with meals. 1 unit for each 50 mg/dl above 150 -POCT ACHS -Diabetic diet -Hypoglycemia protocol -Above communicated to primary team Patient was discussed with Dr. Rowe Signature/Cosignature/Attestation: Attending AttestationI saw and evaluated the patient. I personally obtained the vitale and critical portions of the history and physical exam or was physically present for vitale and critical portions performed by the resident/fellow. I reviewed the resident/fellow?s documentation and discussed the patient with the resident/fellow. I agree with the resident/fellow?s medical decision making as documented in the resident?s note. I personally evaluated the patient (as noted in the above attestation) on 03-Feb-2018 Electronic Signatures: Dexter Pichardo (Fellow)) (Signed 03-Feb-2018 11:25) Authored: Service, Subjective Data, Objective Data, Assessment and Plan, Signature/Cosignature/Attestation Luis Alberto Rowe) (Signed 04-Feb-2018 10:13) Authored: Signature/Cosignature/Attestation Co-Signer: Service, Subjective Data, Objective Data Last Updated: 04-Feb-2018 10:13 by Luis Alberto Rowe) GLUCOSE-POCT Collected: 02/03/2018 Status: F Source: [facility] 7:16 AM [facility]ITALS REPOSITORY TYPE CODE TESTS RESULT OUT OF RANGE REFERENCE UNITS LAB GLUP(LOINC) 74 - 99 mg/dL High 245 GLUCOSE-POCT Performed By: #### GLUPO #### [facility] [address] [place] [address] CBC Collected: 02/03/2018 Status: F Source: [facility] 6:51 AM [facility]ITALS REPOSITORY TYPE CODE TESTS RESULT OUT OF REFERENCE UNITS RANGE LAB WBCR(LOINC 4.4 - 11.3 x10E9/L ) WBC 6.2 LAB NRBC(LOINC 0.0-0.0 /100 WBC ) NUCLEATED RBC 0.0 LAB RBCCT(LOIN 4.00 - 5.20 x10E12/L C) Low RBC 3.21 LAB HGB(LOINC) 12.0 - 16.0 g/dL Low HGB 9.1 LAB HCT(LOINC) 36.0 - 46.0 % Low HCT 26.7 LAB MCV(LOINC) 80 - 100 fL MCV 83 LAB MCHC2(LOIN 32.0 - 36.0 g/dL C) MCHC 34.1 LAB PLTCT(LOIN 150 - 450 x10E9/L C) PLT 299 LAB RDWCV(LOIN 11.5 - 14.5 % C) High RDW-CV 15.6 Performed By: #### CBC #### [facility] [address] [place] [address] RENAL FUNCTION PANEL Collected: 02/03/2018 Status: F Source: [facility] 6:51 AM [facility]ITALS REPOSITORY TYPE CODE TESTS RESULT OUT OF RANGE REFERENCE UNITS LAB GLU(LOINC) 74 - 99 mg/dL High GLUCOSE 288 LAB SOD(LOINC) 136 - 145 mmol/L SODIUM 140 LAB K(LOINC) 3.5 - 5.3 mmol/L POTASSIUM 3.9 LAB CHLOR(LOIN 98 - 107 mmol/L C) CHLORIDE 107 LAB BIC(LOINC) 21 - 32 mmol/L BICARBONATE 24 LAB ANGAP(LOIN 10 - 20 mmol/L C) ANION GAP 13 LAB UREA(LOINC 6 - 23 mg/dL ) High UREA NITROGEN 29 LAB CREA(LOINC 0.50 - 1.05 mg/dL ) High CREATININE 2.65 LAB GFRFN(LOIN >60 mL/min/1.7 C) 3m2 GFR-NON Abnormal AM. 20 LAB GFRAA(LOIN >60 mL/min/1.7 C) 3m2 GFR- Abnormal AM. 24 Result Comment: CALCULATIONS OF ESTIMATED GFR ARE PERFORMED USING THE MDRD STUDY EQUATION FOR THE IDMS-TRACEABLE CREATININE METHODS. CLIN CHEM 2007;53:766-72 LAB CA(LOINC) 8.6 - 10.6 mg/dL CALCIUM 9.0 LAB PHOS(LOINC) 2.5 - 4.9 mg/dL PHOSPHORUS 3.2 Result Comment: The performance characteristics of phosphorus testing in heparinized plasma have been validated by the individual laboratory site where testing is performed. Testing on heparinized plasma is not approved by the FDA; however, such approval is not necessary. LAB ALB(LOINC) 3.4 - 5.0 g/dL Low ALBUMIN 2.6 Performed By: #### RENAL #### [facility] [address] [place] [address] TACROLIMUS Collected: 02/03/2018 Status: F Source: [facility] 6:51 AM [facility]ALS REPOSITORY TYPE CODE TESTS RESULT OUT OF REFERENCE UNITS RANGE LAB FK506(LOIN 2.0 - 15.0 ng/mL C) TACROLIMUS 3.5 Result Comment: NOTE: Result was obtained using a chemiluminescent microparticle immunoassay (CMIA) on the Public Health Inspector i system. Optimal therapeutic ranges for immuno- suppressant drugs depend upon an individual patient's current clinical state, type of organ transplant, time post-transplant, co-administration of other immunosuppressants, and other clinical factors. The results of this test should be correlated with additional clinical and laboratory data before changes in treatment regimens are made. Performed By: #### FK506 #### [facility] [address] [facility] [address] [place], [place] [id number] DAILY PROGRESS Observed: 02/03/2018 Status: COMPLETED Source: [facility] NOTE-INFECTIOUS DISEASE 6:20 AM HOSPITALS REPOSITORY Service: Infectious Disease Subjective Data: BERTRAM AMBROSE is a 37 year old Female who is Hospital Day # 6 and POD #2 for 23g PPV OS with endolaser and TRISTAN OS. Denies acute events overnight. Tolerated PO diet. Headache improved from yesterday. Abdominal pain/right flank pain improved Shortness of breath improved. Has not had bowel movement in 3 days. Walking yesterday with minimal assistance. Objective Data: Objective Information: T PRBPSpO2 [id number]/8098% Date/Time02/03 5:4802/03 5:4802/03 5:4802/03 5:4802/03 5:48 Range(36.1C - 37.1C ) (84 - 241 ) (18 - 20 ) (131 - 164 )/ (65 - 80 ) (91% - 98% ) Highest temp of 37.1 C was recorded at 02/02 13:12 Pain with Activity reported at 02/02 16:30: 4 Pain at Rest reported at 02/02 22:00: 10 T PRBPSpO2 [id number]/8098% Date/Time02/03 5:4802/03 5:4802/03 5:4802/03 5:4802/03 5:48 Range(36.1C - 37.1C ) (84 - 241 ) (18 - 20 ) (131 - 164 )/ (65 - 80 ) (91% - 98% ) Highest temp of 37.1 C was recorded at 02/02 13:12 T PRBPSpO2 [id number]/8098% Date/Time02/03 5:489/3 5:489/3 5:489/3 5:489/3 5:48 Range(36.1C - 37.1C ) (84 - 241 ) (18 - 20 ) (131 - 164 )/ (65 - 80 ) (91% - 98% ) Highest temp of 37.1 C was recorded at 02/02 13:12 Physical Exam: Constitutional: Looks well in bed not in pain or distress Eyes: Improved visual field in right eye with left eye patched s/p surgery ENMT: moist mucosal membranes Head/Neck: Supple, scar of prior tracheostomy Respiratory/Thorax: Vesicular breathing, crackles with no wheeze Cardiovascular: S1, S2 no murmur no added sounds Gastrointestinal: Mild abdominal tenderness diffusely over all 4 quadrants. Genitourinary: + bilateral flank tenderness Musculoskeletal: No swelling, erythema or induration Extremities: Right metatarsal foot amputation. No peripheral edema. Neurological: A&Ox3. No appreciable fnd's Lymphatic: No significant lymphadenopathy Psychological: Appropriate mood and behavior Skin: excessive scarring over the left lower leg, abdominal wall Assessment and Plan: Assessment: Patient is a 37 years old female with Type I diabetes mellitus, renal transplantation with history of rejection on tacrolimus, prednisone, and mycophenolate mofetil, 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 Patient complaining of shortness of breath and bilateral flank pain on admission. Hospital course at [facility] complicated by ICU stay requiring Bipap. CT abs/pelvis showed abdominal cystic lesion, bilateral atrophic tunica-biloxi kidneys. Renal ultrasound negative for hydronephrosis or nephrolithiasis. NEL in setting of sepsis less likely acute transplant rejection. Had acute monocular blurry vision found to have bilateral retinal detachment s/p surgery of left eye. Will continue 3 week course of levofloxacin renally dosed. Today (02/03): Overall improved kidney function, improved shortness of breath, will work with PT tomorrow. -S/p left eye surgery. Improved headache behind left eye. On 7.5 mg oxycodone every 4 hrs. Following optho recs. -POCT blood glucose levels improved from yesterday most recently 226->245. Follow endocrinology recs. -Shortness of breath improved. Now satting well on room air. Continue pulmonary hygiene. Transition to oral levofloxacin 750 mg every 48 hours. Will need 3 week course. -Creat improved at 2.65. Almost to baseline. Will need to follow with renal transplant after discharge. Continue strict I/O's. FeNa 2.4%. -Tacrolimus level <2. Increased to 2 mg BID. Will check tacrolimus level with goal 5-8. -Continue mIVF 113 mL/hr NS. Bolus 1L LR as needed with goal SBP>90. 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 Will need 3 week course. -CXR revealed patchy bilateral infiltrates -Continue pulmonary hygiene with respiratory therapy -Follow up sputum culture for legionella BCYE media -Trend daily CBC #Renal transplant with history of rejection, on tacrolimus, mycophenolate, and prednisone #Acute kidney injury in setting of infection, slowly recovering creat at 2.75 -Baseline creat (2-2.5). Most recent creat 2.3 on 01/08/18 -Nephrology consult to evaluate for rejection . Appreciate recs: FeNa 2.4%, renal ultrasound without evidence of hydronephrosis or nephrolithiasis and findings consistent with CKD. -Patient would like to continue follow up with her managing jeweler at [place]. -Continue tacrolimus and prednisone. Will hold mycophenolate for now. -Uploaded CT abd/pelvis into system. Reveals bilateral kidney atrophy. Transplant in right iliac fossa. Diffuse atherosclerotic calcifications of aorta, superior mesenteric, inferior mesenteric, and splenic arteries. -Minimize contrast exposure -Avoid nephrotoxic medications -Trend daily rfp -Strict I/O's #Peritoneal inclusion cystic lesion: -CT abs/pelvis showed adnexal mass with differential ovarian cyst vs. lymphocele with pedunculated uterine fibroids. Appreciate wet process operator recs given multiple abdominal surgeries likely peritoneal inclusion cyst. Follow-up imaging recommended in 6-12 months for surveillance. -Appreciate wet process operator recs, flank pain unlikely to by gynecological in origin. Elevated CA-125 non-specific in premenopausal woman. Also discussed with pt need for contraception. Pt may consider paragard IUD. #Type I diabetes mellitus, history of non-ketotic hyperglycemia: -Resume insulin Detemir and meal time sliding scale -Appreciate endocrinology recs lispro 2 units with meals and sliding scale. 1 unit for each 50 above 150. Detemir at 26 units. POCT ACHS, and hypoglycemia protocol. F: mIVF 113 mL/hr NS E: replete as needed N: diabetic diet DVT prophylaxis: heparin subq Full Code Signature/Cosignature/Attestation: Attending AttestationI saw and evaluated the patient. I personally obtained the vitale and critical portions of the history and physical exam or was physically present for vitale and critical portions performed by the resident/fellow. I reviewed the resident/fellow?s documentation and discussed the patient with the resident/fellow. I agree with the resident/fellow?s medical decision making as documented in the resident?s note. I personally evaluated the patient (as noted in the above attestation) on 03-Feb-2018 Electronic Signatures: Josee Collins (Resident)) (Signed 03-Feb-2018 11:02) Authored: Service, Subjective Data, Objective Data, Assessment and Plan, Signature/Cosignature/Attestation Marleen Goldstein) (Signed 03-Feb-2018 18:06) Authored: Signature/Cosignature/Attestation Co-Signer: Service, Subjective Data, Objective Data, Assessment and Plan, Signature/Cosignature/Attestation Last Updated: 03-Feb-2018 18:06 by Marleen Goldstein) GLUCOSE-POCT Collected: 02/02/2018 Status: F Source: [place] 9:24 PM [facility] REPOSITORY TYPE CODE TESTS RESULT OUT OF RANGE REFERENCE UNITS LAB GLUP(LOINC) 74 - 99 mg/dL High 226 GLUCOSE-POCT Performed By: #### GLUPO #### [facility] [address] [place] [address] TACROLIMUS Collected: 02/02/2018 Status: F Source: [place] 6:29 PM [facility] REPOSITORY TYPE CODE TESTS RESULT OUT OF REFERENCE UNITS RANGE LAB FK506(LOIN 2.0 - 15.0 ng/mL C) TACROLIMUS 3.1 Result Comment: NOTE: Result was obtained using a chemiluminescent microparticle immunoassay (CMIA) on the Public [employer] Inspector i system. Optimal therapeutic ranges for immuno- suppressant drugs depend upon an individual patient's current clinical state, type of organ transplant, time post-transplant, co-administration of other immunosuppressants, and other clinical factors. The results of this test should be correlated with additional clinical and laboratory data before changes in treatment regimens are made. Performed By: #### FK506 #### [facility] [address] [place], [place] [id number] GLUCOSE-POCT Collected: 02/02/2018 Status: F Source: [place] 5:52 PM [facility] REPOSITORY TYPE CODE TESTS RESULT OUT OF RANGE REFERENCE UNITS LAB GLUP(LOINC) 74 - 99 mg/dL High 265 GLUCOSE-POCT Performed By: #### GLUPO #### [facility] [address] [facility] [place] [address] OPHTHALMIC EYE EXAM Observed: 02/02/2018 Status: UNK Source: [place] 5:12 PM [facility] REPOSITORY DOCUMENT SIGNED ELECTRONICALLY BY Jose Martinez MD ON 02/05/2018 05:12:[address] [address] THIS DOCUMENT WAS CREATED ON: 02/02/2018 12:49:50 PM BY: Anastacia Vaughn performed [id number] Exam Date: Friday, February 02, 2018 PATIENT NAME: BERTRAM AMBROSE DATE: 1980 AGE: 37 GENDER: Female RACE: Black or History Chief Complaint/Reason For Visit: 37yo F w/ tractional retinal detachment OS, s/p 23g PPV OS with endolaser and TRISTAN with Dr. Martinez on 02/01/18. Here for POD1 visit. Exam ORIENTATION, MOOD AND AFFECT: Alert AND oriented x3 RIGHT EYE LEFT EYE UNCORRECTED VA N/A N/A UNCORRECTED VA NEAR deferred 20/400+ PRESSURE METHOD: Tonopen Tonopen PRESSURES: deferred 8 DATE-TIME: 12:47 PM 12:47 PARTS ROOM ASSISTANT: alba willis CONFRONTATION VF deferred EXTERNAL EYE EXAM: LID: deferred PUPIL: deferred ADNEXA: deferred ANTERIOR SEGMENT EXAM: TEARFILM: deferred Good CONJUNCTIVA: deferred 2+ conj hyperemia CORNEA: deferred 2+ D folds ANTERIOR CHAMBER: deferred Deep and quiet IRIS: deferred Surgical pupil LENS: deferred 3+ cortical spokes, 1+NS ANTERIOR VITREOUS: deferred Clear FUNDUS EXAM: CUP TO DISC: deferred 0.4 OPTIC DISC: deferred VITREOUS: deferred hemorrhage removed MACULA: deferred VESSELS: deferred PERIPHERY: deferred tractional membrane peeled with no retinal tears 360' endolaser Impression 01 H33.42 Retinal detachment, tractional, left eye-New Plan A/P: -Vigamox QID, Pred Forte QID, Erythromycin josue qhs, Cyclogel BID, please wear shield at bedtime and while sleeping. Avoid pressure to eye. No water in eye for 1 wk. - Consult resident, please staff with [facility] attending this wk. Plan for D/C next wk. created by:Jose Martinez MD Jose Martinez MD DOCUMENT CREATE DATE: 02/02/2018 12:49:52 PM The Following Users Updated This Patient Encounter: Anastacia Vaughn Received for:Jose Martinez Feb 05 2018 5:13PM [place] Standard Time CLINICAL EVENT NOTE-RATER ASSOCIATE- Observed: 02/02/2018 Status: UNK Source: [facility] CONTRACEPTION DISCUSSION 2:20 PM [facility] REPOSITORY Event: Topic: Instructional Leader- Contraception Discussion Details: I met with patient today to discuss contraceptive options. She states she is having significant eye pain. Patient expressed frustration with multiple discussions regarding need for contraception. Discussed with patient that in the setting of her multiple health comorbidities, prevention of (or planning timing) is important for her overall health. Briefly discussed long acting reversible contraceptives such as IUD, Nexplanon and Depo as well as progesterone only pills. Gynecology will re-visit patient to continue discussion. Please contact if any further questions. Isamar Jonas, PGY3 Pager [phone] Electronic Signatures: Isamar Jonas (Resident)) (Signed 02-Feb-2018 14:26) Authored: Event Last Updated: 02-Feb-2018 14:26 by Isamar Jonas (Resident)) DAILY PROGRESS Observed: 02/02/2018 Status: COMPLETED Source: [facility] NOTE-RENAL 1:53 PM [facility] REPOSITORY Service: Renal Subjective Data: BERTRAM AMBROSE is a 37 year old Female who is Hospital Day # 5 and POD #1 for 23g PPV OS with endolaser and TRISTAN OS. Additional Information: Underwent opthalmic procedure yesterday, some RO today, vision mildly improved. Hyperglycemia this AM. Objective Data: Objective Information: T PRBPSpO2 [id number]/6996% Date/Time02/02 13: 13: 13: 13: 13:12 Range(36C - 37.1C ) (75 - 87 ) (18 - 18 ) (135 - 164 )/ (61 - 78 ) (91% - 97% ) Highest temp of 37.1 C was recorded at 02/02 13:12 Pain with Activity reported at 02/02 10:09: 9 Pain at Rest reported at 02/02 10:09: 9 Physical Exam: Constitutional: awake, interacive Eyes: patch on L eye, eyes closed during exam ENMT: no oral lesions Respiratory/Thorax: clear bilateral anterior apices Cardiovascular: reg, no mrg Gastrointestinal: soft, NT, BS present Extremities: warm, dry, no edema Medication: Medications: Continuous Medications 1. Insulin Regular 100 units/ NaCL 0.9% 100 mL Non-ICU: 2 units/hr IntraVenous <Continuous> 2. Sodium Chloride 0.9% Infusion: 1000 mL IntraVenous <Continuous> Scheduled Medications 1. Carvedilol: 25 mg Oral 2 Times a Day 2. Erythromycin 0.5% Ophthalmic: 0.5 inch(es) Left Eye Every 24 Hours 3. Gabapentin: 300 mg Oral 2 Times a Day 4. guaiFENesin Extended Release: 600 mg Oral Every 12 Hours 5. Heparin SubCutaneous: 5000 unit(s) SubCutaneous Every 12 Hours 6. Insulin Lispro (HumaLOG) Injectable: 2 unit(s) SubCutaneous 3 Times a Day Before Meals 7. Insulin Lispro Mild Corrective Scale: unit(s) SubCutaneous 3 Times a Day Before Meals 8. Lactated Ringers IV Bolus: 1000 mL IntraVenous Piggyback Once 9. levoFLOXacin 750 mg IVPB/ Premix 150 mL: 150 mL IntraVenous Piggyback Every 48 Hours 10. Moxifloxacin 0.5% Ophthalmic: 1 drop(s) Left Eye 4 Times a Day 11. NIFEdipine Extended Release: 60 mg Oral Daily 12. Pravastatin: 40 mg Oral Daily 13. prednisoLONE 1% Ophthalmic: 1 drop(s) Left Eye Every 6 Hours 14. predniSONE: 5 mg Oral Daily 15. Sodium Bicarbonate: 1300 mg Oral Every 12 Hours 16. Tacrolimus: 2 mg Oral <User Schedule> PRN Medications 1. Acetaminophen: 650 mg Oral Every 4 Hours 2. Albuterol 2.5 mg/ 3 mL Nebulizer Soln: 3 mL Inhalation Every 6 Hours 3. Dextrose 50% in Water Injectable: 25 gram(s) IntraVenous Push Every 15 Minutes 4. Docusate: 100 mg Oral 2 Times a Day 5. Glucagon Injectable: 1 mg IntraMuscular Every 15 Minutes 6. oxyCODONE Immediate Release: 7.5 mg Oral Every 4 Hours 7. Zolpidem: 10 mg Oral At Bedtime Conditional Medication Orders 1. Dextrose 10% in Water Infusion: 1000 mL IntraVenous <Continuous> Currently Suspended Medications 1. Mycophenolate Mofetil: 500 mg Oral Every 12 Hours Recent Lab Results: Results: I have reviewed these laboratory results: Glucose_POCT 02-Feb-2018 13:36:00 ResultValue Glucose-POCT 431 H Basic Metabolic Panel 02-Feb-2018 12:24:00 ResultValue Glucose, Serum 429 H NA 133 L K 4.2 CL 103 Bicarbonate, Serum 21 Anion Gap, Serum 13 BUN 29 H CREAT 2.58 H GFR-Non 21 A GFR- 25 A Calcium, Serum 8.8 Renal Function Panel 02-Feb-2018 06:39:00 ResultValue Lab Comment: CALLED AND RB BY ARCELIA MATHEWS, 02/02/2018 10:02 Glucose, Serum 659 HH NA 131 L K 5.4 H CL 101 Bicarbonate, Serum 20 L Anion Gap, Serum 15 BUN 29 H CREAT 2.75 H GFR-Non 19 A GFR- 23 A Calcium, Serum 8.9 Phosphorus, Serum 4.2 ALB 2.7 L Tacrolimus, Blood 01-Feb-2018 10:20:00 ResultValue Tacrolimus, Blood 2.2 Assessment and Plan: Assessment: Patient is a 37 year old female with ESRD 2/2 DM type 1 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 Patient was presented to the OSH on 01/27/2018 with fever, chills, and cough and admitted to ICU with HCAP, Acute respiratory failure requiring BiPAP, and NEL with Cr 3.9. Patient received Tacrolimus sublingual and IV steroids. MMF was held. Patient was transferred to [facility] for further management. Transplant nephrology consulted for NEL in DDKT. Overall, her renal function is improving with conservative measures. I suggest to update tacrolimus trough with new dose that was adjusted in PM of 9.1.18 to 2 mg twice a day. Trend renal function. Electronic Signatures: Dorcas Acevedo) (Signed 02-Feb-2018 13:58) Authored: Service, Subjective Data, Objective Data, Assessment and Plan, Signature/Cosignature/Attestation Last Updated: 02-Feb-2018 13:58 by Dorcas Acevedo) GLUCOSE-POCT Collected: 02/02/2018 Status: F Source: [place] 1:36 PM [facility] REPOSIT[facility] TYPE CODE TESTS RESULT OUT OF RANGE REFERENCE UNITS LAB GLUP(LOINC) 74 - 99 mg/dL High 431 GLUCOSE-POCT Performed By: #### GLUPO #### [facility] [address] [place] [address] CONSULT-OPHTHALMOLOGY Observed: Status: COMPLETED Source: [place] 02/02/2018 12:50 PM [facility] REPOSITORY Service: Service: Ophthalmology Allergies: ? Lasix: Swelling/Edema Assessment: Exam Date: Friday, February 02, 2018 PATIENT NAME: BERTRAM AMBROSE DATE: 1980 AGE: 37 GENDER: Female RACE: Black or History Chief Complaint/Reason For Visit: 37yo F w/ tractional retinal detachment OS, s/p 23g PPV OS with endolaser and TRISTAN with Dr. Martinez on 02/01/18. Here for POD1 visit. Exam ORIENTATION, MOOD AND AFFECT: Alert & oriented x3 RIGHT EYE LEFT EYE UNCORRECTED VA N/A N/A UNCORRECTED VA NEAR deferred 20/400+ PRESSURE METHOD: Tonopen Tonopen PRESSURES: deferred 8 DATE-TIME: 12:47 PM 12:47 PARTS ROOM ASSISTANT: alba willis CONFRONTATION VF deferred EXTERNAL EYE EXAM: LID: deferred PUPIL: deferred ADNEXA: deferred ANTERIOR SEGMENT EXAM: TEARFILM: deferred Good CONJUNCTIVA: deferred 2+ conj hyperemia CORNEA: deferred 2+ D folds ANTERIOR CHAMBER: deferred Deep and quiet IRIS: deferred Surgical pupil LENS: deferred 3+ cortical spokes, 1+NS ANTERIOR VITREOUS: deferred Clear FUNDUS EXAM: CUP TO DISC: deferred 0.4 OPTIC DISC: deferred VITREOUS: deferred hemorrhage removed MACULA: deferred VESSELS: deferred PERIPHERY: deferred tractional membrane peeled with no retinal tears 360' endolaser Impression 01 H33.42 Retinal detachment, tractional, left eye-New Plan A/P: -Vigamox QID, Pred Forte QID, Erythromycin josue qhs, Cyclogel BID, please wear shield at bedtime and while sleeping. Avoid pressure to eye. No water in eye for 1 wk. Electronic Signatures: Anastacia Vaughn (Resident)) (Signed 02-Feb-2018 12:51) Authored: Service, Allergies, Assessment/Recommendations Jose Martinez) (Signed 05-Feb-2018 13:04) Authored: Signature/Cosignature/Attestation Co-Signer: Service, Allergies, Assessment/Recommendations Last Updated: 05-Feb-2018 13:04 by Jose Martinez) BETA-HYDROXYBUTYRATE Collected: Status: F Source: [place] 02/02/2018 12:24 PM [facility] REPOSITORY TYPE CODE TESTS RESULT OUT OF RANGE REFERENCE UNITS LAB BHB2(LOINC) 0.02 - 0.27 mmol/L 0.07 BETA-HYDROXY BUTYRATE Result Comment: The beta-hydroxybutyrate test performance characteristics have been validated by [facility] laboratory. This test has not been approved by the FDA; however, such approval is not necessary. Performed By: #### BHB2 #### [facility] [address] [place] [address] BASIC METABOLIC PANEL Collected: 02/02/2018 Status: F Source: [place] 12:24 PM [facility] REPOSITORY TYPE CODE TESTS RESULT OUT OF RANGE REFERENCE UNITS LAB GLU(LOINC) 74 - 99 mg/dL High GLUCOSE 429 LAB SOD(LOINC) 136 - 145 mmol/L Low SODIUM 133 LAB K(LOINC) 3.5 - 5.3 mmol/L POTASSIUM 4.2 LAB CHLOR(LOIN 98 - 107 mmol/L C) CHLORIDE 103 LAB BIC(LOINC) 21 - 32 mmol/L BICARBONATE 21 LAB ANGAP(LOIN 10 - 20 mmol/L C) ANION GAP 13 LAB UREA(LOINC 6 - 23 mg/dL ) High UREA NITROGEN 29 LAB CREA(LOINC 0.50 - 1.05 mg/dL ) High CREATININE 2.58 LAB GFRFN(LOIN >60 mL/min/1.7 C) 3m2 GFR-NON Abnormal AM. 21 LAB GFRAA(LOIN >60 mL/min/1.7 C) 3m2 GFR- Abnormal AM. 25 Result Comment: CALCULATIONS OF ESTIMATED GFR ARE PERFORMED USING THE MDRD STUDY EQUATION FOR THE IDMS-TRACEABLE CREATININE METHODS. CLIN CHEM 2007;53:766-72 LAB CA(LOINC) 8.6 - 10.6 mg/dL CALCIUM 8.8 Performed By: #### BMP #### [facility] [address] [place] [address] GLUCOSE-POCT Collected: 02/02/2018 Status: F Source: [place] 12:22 PM [facility] REPOSITORY TYPE CODE TESTS RESULT OUT OF RANGE REFERENCE UNITS LAB GLUP(LOINC) 74 - 99 mg/dL High 415 GLUCOSE-POCT Performed By: #### GLUPO #### [facility] [address] [place] [address] DAILY PROGRESS Observed: 02/02/2018 Status: COMPLETED Source: [facility] NOTE-INFECTIOUS DISEASE 11:36 AM [facility]IT[facility] REPOSITORY Service: Infectious Disease Subjective Data: BERTRAM AMBROSE is a 37 year old Female who is Hospital Day # 5 and POD #1 for 23g PPV OS with endolaser and TRISTAN OS. Patient had surgery for detached retina on left eye yesterday. Reports that she ate well afterwards without nausea, vomiting, abdominal pain. Complains of severe headache behind the left eye. Oxycodone 5mg was not helpful in relieving pain. Of note, this morning blood glucose POCT was >600. 10 units of lispro was given. ABG performed revealed pH 7.44 with CO27 without elevated anion gap. Pt was not in DKA. Insulin drip was started. Spoke with endocrinology who recommended giving 10 units of detemir and shutting off insulin drip after 1 hour of running. Objective Data: Objective Information: T PRBPSpO2 [id number]/6197% Date/Time02/02 5:529/2 5:529/2 5:529/2 5:529/2 5:52 Range(36C - 36.5C ) (75 - 79 ) (18 - 18 ) (135 - 164 )/ (61 - 78 ) (91% - 97% ) Pain with Activity reported at 02/02 10:09: 9 Pain at Rest reported at 02/02 10:09: 9 T PRBPSpO2 [id number]/[id number]% Date/Time02/02 5:529/2 5:529/2 5:529/2 5:529/2 5:52 Range(36C - 36.5C ) (75 - 79 ) (18 - 18 ) (135 - 164 )/ (61 - 78 ) (91% - 97% ) Physical Exam: Constitutional: Looks well in bed not in pain or distress Eyes: Decreased visual pérez on right eye with left eye patched s/p surgery ENMT: moist mucosal membranes Head/Neck: Supple, scar of prior tracheostomy Respiratory/Thorax: Vesicular breathing, crackles with no wheeze Cardiovascular: S1, S2 no murmur no added sounds Gastrointestinal: Mild abdominal tenderness diffusely over all 4 quadrants. Genitourinary: + bilateral flank tenderness Musculoskeletal: No swelling, erythema or induration Extremities: Right metatarsal foot amputation. No peripheral edema. Neurological: A&Ox3. No appreciable fnd's Lymphatic: No significant lymphadenopathy Psychological: Appropriate mood and behavior Skin: excessive scarring over the left lower leg, abdominal wall Medication: Medications: Continuous Medications 1. Insulin Regular 100 units/ NaCL 0.9% 100 mL Non-ICU: 2 units/hr IntraVenous <Continuous> 2. Sodium Chloride 0.9% Infusion: 1000 mL IntraVenous <Continuous> Scheduled Medications 1. Carvedilol: 25 mg Oral 2 Times a Day 2. Gabapentin: 300 mg Oral 2 Times a Day 3. guaiFENesin Extended Release: 600 mg Oral Every 12 Hours 4. Heparin SubCutaneous: 5000 unit(s) SubCutaneous Every 12 Hours 5. Insulin Lispro (HumaLOG) Injectable: 2 unit(s) SubCutaneous 3 Times a Day Before Meals 6. Insulin Lispro Mild Corrective Scale: unit(s) SubCutaneous 3 Times a Day Before Meals 7. Lactated Ringers IV Bolus: 1000 mL IntraVenous Piggyback Once 8. levoFLOXacin 750 mg IVPB/ Premix 150 mL: 150 mL IntraVenous Piggyback Every 48 Hours 9. NIFEdipine Extended Release: 60 mg Oral Daily 10. Pravastatin: 40 mg Oral Daily 11. predniSONE: 5 mg Oral Daily 12. Sodium Bicarbonate: 1300 mg Oral Every 12 Hours 13. Tacrolimus: 2 mg Oral <User Schedule> PRN Medications 1. Acetaminophen: 650 mg Oral Every 4 Hours 2. Albuterol 2.5 mg/ 3 mL Nebulizer Soln: 3 mL Inhalation Every 6 Hours 3. Dextrose 50% in Water Injectable: 25 gram(s) IntraVenous Push Every 15 Minutes 4. Docusate: 100 mg Oral 2 Times a Day 5. Glucagon Injectable: 1 mg IntraMuscular Every 15 Minutes 6. oxyCODONE Immediate Release: 5 mg Oral Every 4 Hours 7. Zolpidem: 10 mg Oral At Bedtime Conditional Medication Orders 1. Dextrose 10% in Water Infusion: 1000 mL IntraVenous <Continuous> Currently Suspended Medications 1. Mycophenolate Mofetil: 500 mg Oral Every 12 Hours Recent Lab Results: Results: I have reviewed these laboratory results: Glucose_POCT Trending View [id number] 11:15:00 02-Feb-2018 10:18:00 02-Feb-2018 08:52:00 [id number] H 539 H >600 H Arterial Full Panel 02-Feb-2018 08:21:00 ResultValue Lab Comment: GLU CALLED AND RB TO ARCELIA MATHEWS, 02/02/2018 08:37 pH, Arterial 7.44 H pCO2, Arterial 27 L pO2, Arterial 164 H Patient-Temperature 37.0 SO2, Arterial 99 HCT 25.0 L Sodium-Level 131 L Potassium-Level 4.8 Chloride-Level 102 Calcium, Ionized-Level 1.32 Glucose-Level 695 HH Lactate-Level 1.1 Base Excess-Blood -5.0 L Bicarbonate, Calculated, Arterial 18.3 L HGB, Calculated 8.5 L Anion Gap-Level 16 Radiology Results: Results: Impression: Unremarkable ultrasound and Doppler evaluation of the transplant kidney as detailed above. Incidentally noted is the partially visualized right ovarian cyst, as seenon recent CT scan. Follow-up can be obtained in 6-8 weeks to document resolution or growth. Ultrasound Renal Bilateral [Feb 01 2018 9:37AM] Impression: Atrophic echogenic kidneys, consistent with chronic medical renal disease. Partially visualized suspected right ovarian cyst. Ultrasound Renal Bilateral [Feb 01 2018 9:35AM] Impression: [Atrophic echogenic kidneys, consistent with chronic medical renal disease. Partially visualized suspected right ovarian cyst.] UNSIGNED REPOR Ultrasound Renal Bilateral [Jan 31 2018 10:26PM] Impression: [Unremarkable ultrasound and Doppler evaluation of the transplant kidney as detailed above] UNSIGNED REPOR Ultrasound Renal Bilateral [Jan 31 2018 9:47PM] Assessment and Plan: Assessment: Patient is a 37 years old female with Type I diabetes mellitus, renal transplantation with history of rejection on tacrolimus, prednisone, and mycophenolate mofetil, 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 Patient complaining of shortness of breath and bilateral flank pain on admission. Hospital course at [facility] complicated by ICU stay requiring Bipap. CT abs/pelvis showed abdominal cystic lesion, bilateral atrophic tunica-biloxi kidneys. Renal ultrasound negative for hydronephrosis or nephrolithiasis. NEL in setting of sepsis less likely acute transplant rejection. Had acute monocular blurry vision found to have bilateral retinal detachment s/p surgery of left eye. Will continue 3 week course of levofloxacin renally dosed. Today (02/02): -S/p left eye surgery. Complaining of headache behind left eye. Oxycodone 5 mg offered no relief. Increase to 7.5 mg oxycodone every 4 hrs. Will f/up optho recommendations. -POCT blood glucose levels >600, gave lispro 10 units, then 10 units detemir shut off insulin drip 1 hr after. Not in DKA, no elevated anion gap. Repeat RFP at 12pm. -Shortness of breath improved. Now satting well on room air. Continue pulmonary hygiene. Continue IV levofloxacin on day 7. Can transition to oral today if PO intake ok. Will need 3 week course. -Creat improved at 2.75. Continue strict I/O's. FeNa 2.4%. -Tacrolimus level <2. Increased to 2 mg BID. Will check tacrolimus level before evening dose, adjust as needed. -Continue mIVF 113 mL/hr NS. Bolus 1L LR as needed with goal SBP>90. 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 Will need 3 week course. -CXR revealed patchy bilateral infiltrates -Continue pulmonary hygiene with respiratory therapy -Follow up sputum culture for legionella BCYE media -Trend daily CBC #Renal transplant with history of rejection, on tacrolimus, mycophenolate, and prednisone #Acute kidney injury in setting of infection, slowly recovering creat at 2.75 -Baseline creat (2-2.5). Most recent creat 2.3 on 01/08/18 -Nephrology consult to evaluate for rejection . Appreciate recs: FeNa 2.4%, renal ultrasound without evidence of hydronephrosis or nephrolithiasis and findings consistent with CKD. -Patient would like to continue follow up with her managing jeweler at [place]. -Continue tacrolimus and prednisone. Will hold mycophenolate for now. -Uploaded CT abd/pelvis into [facility] system. Reveals bilateral kidney atrophy. Transplant in right iliac fossa. Diffuse atherosclerotic calcifications of aorta, superior mesenteric, inferior mesenteric, and splenic arteries. -Minimize contrast exposure -Avoid nephrotoxic medications -Trend daily rfp -Strict I/O's #Peritoneal inclusion cystic lesion: -CT abs/pelvis showed adnexal mass with differential ovarian cyst vs. lymphocele with pedunculated uterine fibroids. Appreciate wet process operator recs given multiple abdominal surgeries likely peritoneal inclusion cyst. Follow-up imaging recommended in 6-12 months for surveillance. -Appreciate wet process operator recs, flank pain unlikely to by gynecological in origin. Elevated CA-125 non-specific in premenopausal woman. Also discussed with pt need for contraception. Pt may consider paragard IUD. #Type I diabetes mellitus, history of non-ketotic hyperglycemia: -Resume insulin Detemir and meal time sliding scale -Appreciate endocrinology recs lispro 2 units with meals and sliding scale. 1 unit for each 50 above 150. Detemir at 26 units. POCT ACHS, and hypoglycemia protocol. F: mIVF 113 mL/hr NS E: replete as needed N: diabetic diet DVT prophylaxis: heparin subq Full Code SCIP Measures: Urinary Catheter Removed Post-Op Day 2: yes Patient on Beta Vidya Prior to Admission: no Prophylactic antibiotics scheduled to be discontinued with 24 hr of anesthesia end time (48 hr for cardiac surgery): yes Signature/Cosignature/Attestation: Attending AttestationI saw and evaluated the patient. I personally obtained the vitale and critical portions of the history and physical exam or was physically present for vitale and critical portions performed by the resident/fellow. I reviewed the resident/fellow?s documentation and discussed the patient with the resident/fellow. I agree with the resident/fellow?s medical decision making as documented in the resident?s note. I personally evaluated the patient (as noted in the above attestation) on 02-Feb-2018 Electronic Signatures: Josee Collins (Resident)) (Signed 02-Feb-2018 12:36) Authored: Service, Subjective Data, Objective Data, Assessment and Plan, SCIP Measures, Signature/Cosignature/Attestation Marleen Goldstein) (Signed 02-Feb-2018 12:42) Authored: Signature/Cosignature/Attestation Co-Signer: Service, Subjective Data, Objective Data, Assessment and Plan, SCIP Measures, Signature/Cosignature/Attestation Last Updated: 02-Feb-2018 12:42 by Marleen Goldstein) GLUCOSE-POCT Collected: 02/02/2018 Status: F Source: [facility] 11:15 AM [facility] TYPE CODE TESTS RESULT OUT OF RANGE REFERENCE UNITS LAB GLUP(LOINC) 74 - 99 mg/dL High 489 GLUCOSE-POCT Performed By: #### GLUPO #### [facility] [address] [place] [address] DAILY PROGRESS Observed: 02/02/2018 Status: COMPLETED Source: [facility] NOTE-ENDOCRINOLOGY 11:15 AM [facility] REPOSITORY Consult Type: subsequent visit/care Service: Endocrinology Subjective Data: BERTRAM AMBROSE is a 37 year old Female who is Hospital Day # 5 and POD #1 for 23g PPV OS with endolaser and TRISTAN OS. Objective Data: Objective Information: T PRBPSpO2 [id number]% Date/Time02/02 5:2 5:522 5:52/2 5:52/2 5:52 Range(36C - 36.5C ) (75 - 79 ) (18 - 18 ) (135 - 164 )/ (61 - 78 ) (91% - 97% ) Pain at Rest reported at 02/01 22:00: 8 Physical Exam: Constitutional: Well developed, awake/alert/oriented x3, no distress, alert and cooperative Head/Neck: Neck supple, no apparent injury, thyroid without mass or tenderness, No JVD, trachea midline, no bruits Gastrointestinal: Nondistended, soft, non-tender, no rebound tenderness or guarding, no masses palpable, no organomegaly, +BS, no bruits Extremities: normal extremities, no cyanosis edema, contusions or wounds, no clubbing Neurological: alert and oriented x3, intact senses, motor, response and reflexes, normal strength Skin: Warm and dry, no lesions, no rashes Medication: Medications: ANTI-INFECTIVES: 1. levoFLOXacin 750 mg IVPB/ Premix 150 mL: 150 mL IntraVenous Piggyback Every 48 Hours CARDIOVASCULAR AGENTS: 1. Carvedilol: 25 mg Oral 2 Times a Day 2. NIFEdipine Extended Release: 60 mg Oral Daily CENTRAL NERVOUS SYSTEM AGENTS: 1. Acetaminophen: 650 mg Oral Every 4 Hours PRN 2. oxyCODONE Immediate Release: 5 mg Oral Every 4 Hours PRN 3. Gabapentin: 300 mg Oral 2 Times a Day 4. Zolpidem: 10 mg Oral At Bedtime PRN COAGULATION MODIFIERS: 1. Heparin SubCutaneous: 5000 unit(s) SubCutaneous Every 12 Hours GASTROINTESTINAL AGENTS: 1. Sodium Bicarbonate: 1300 mg Oral Every 12 Hours 2. Docusate: 100 mg Oral 2 Times a Day PRN HORMONES/HORMONE MODIFIERS: 1. predniSONE: 5 mg Oral Daily IMMUNOLOGIC AGENTS: 1. Tacrolimus: 2 mg Oral <User Schedule> METABOLIC AGENTS: 1. Insulin Detemir (Levemir) Injectable: 10 unit(s) SubCutaneous Once 2. Insulin Lispro (HumaLOG) Injectable: 2 unit(s) SubCutaneous 3 Times a Day Before Meals 3. Insulin Lispro Mild Corrective Scale: unit(s) SubCutaneous 3 Times a Day Before Meals 4. Insulin Regular 100 units/ NaCL 0.9% 100 mL Non-ICU: 2 units/hr IntraVenous <Continuous> 5. Pravastatin: 40 mg Oral Daily 6. Dextrose 50% in Water Injectable: 25 gram(s) IntraVenous Push Every 15 Minutes PRN 7. Glucagon Injectable: 1 mg IntraMuscular Every 15 Minutes PRN NUTRITIONAL PRODUCTS: 1. Lactated Ringers IV Bolus: 1000 mL IntraVenous Piggyback Once 2. Sodium Chloride 0.9% Infusion: 1000 mL IntraVenous <Continuous> RESPIRATORY AGENTS: 1. Albuterol 2.5 mg/ 3 mL Nebulizer Soln: 3 mL Inhalation Every 6 Hours PRN 2. guaiFENesin Extended Release: 600 mg Oral Every 12 Hours Conditional Medication Orders 1. Dextrose 10% in Water Infusion: 1000 mL IntraVenous <Continuous> Currently Suspended Medications 1. Mycophenolate Mofetil: 500 mg Oral Every 12 Hours Recent Lab Results: Results: I have reviewed these laboratory results: Glucose_POCT Trending View [id number] 10:18:00 02-Feb-2018 08:52:00 02-Feb-2018 07:43:00 02-Feb-2018 07:09:00 01-Feb-2018 22:36:00 01-Feb-2018 21:07:00 01-Feb-2018 20:06:00 01-Feb-2018 16:13:00 Glucose-[id number] H >600 H >600 H >600 H 271 H 274 H 263 H 300 H Renal Function Panel 02-Feb-2018 06:39:00 ResultValue Lab Comment: CALLED AND RB BY ARCELIA MATHEWS, 02/02/2018 10:02 Glucose, Serum 659 HH NA 131 L K 5.4 H CL 101 Bicarbonate, Serum 20 L Anion Gap, Serum 15 BUN 29 H CREAT 2.75 H GFR-Non 19 A GFR- 23 A Calcium, Serum 8.9 Phosphorus, Serum 4.2 ALB 2.7 L Complete Blood Count 02-Feb-2018 06:39:00 ResultValue White Blood Cell Count 9.4 Nucleated Erythrocyte Count 0.0 Red Blood Cell Count 3.27 L HGB 9.3 L HCT 27.5 L MCV 84 MCHC 33.8 PLT 307 RDW-CV 15.8 H Assessment and Plan: Assessment: Patient is 37 years old female with hx of Type I diabetes mellitus, DDKT in 2011 in [place], rejection on tacrolimus, prednisone and mycophenolate mofetil, who was transferred from [facility] with legionnaires disease. Endocrinology was consulted for inpatient management of diabetes. 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 Her home regimen is detemir 32 units at bedtime, novolog SSI with meals. Her Hba1c was 11.6% on 01/30/18. Of note she was found to have bilateral retinal detachment so will be going for surgery today. ROS is positive for blurry vision and back pain. BG and labs reviewed. BG above 600 this morning. ABG did not show any acidosis. Insulin gtt was started per primary team. Plan: -Give levemir 10 units once now, then stop the insulin gtt 1-2 hours later. -Continue levemir 26 units at bedtime -Continue lispro 2 units with meals -Continue sliding scale with meals. 1 unit for each 50 mg/dl above 150 -POCT ACHS -Diabetic diet -Hypoglycemia protocol -Above communicated to primary team Patient was discussed with Dr. Rowe Signature/Cosignature/Attestation: Attending AttestationI saw and evaluated the patient. I personally obtained the vitale and critical portions of the history and physical exam or was physically present for vitale and critical portions performed by the resident/fellow. I reviewed the resident/fellow?s documentation and discussed the patient with the resident/fellow. I agree with the resident/fellow?s medical decision making as documented in the resident?s note. I personally evaluated the patient (as noted in the above attestation) on 02-Feb-2018 Electronic Signatures: Dexter Pichardo (Fellow)) (Signed 02-Feb-2018 11:19) Authored: Service, Subjective Data, Objective Data, Assessment and Plan, Signature/Cosignature/Attestation Luis Alberto Rowe () (Signed 04-Feb-2018 10:12) Authored: Signature/Cosignature/Attestation Co-Signer: Service, Subjective Data, Objective Data, Assessment and Plan, Signature/Cosignature/Attestation Last Updated: 04-Feb-2018 10:12 by Luis Alberto Rowe) GLUCOSE-POCT Collected: 02/02/2018 Status: F Source: [facility] 10:18 AM [facility] REPOSITORY TYPE CODE TESTS RESULT OUT OF RANGE REFERENCE UNITS LAB GLUP(LOINC) 74 - 99 mg/dL High 539 GLUCOSE-POCT Performed By: #### GLUPO #### [facility] [address] [place] [address] EMR ADDON Collected: 02/02/2018 Status: F Source: [facility] 9:28 AM [facility] REPOSITORY TYPE CODE TESTS RESULT OUT OF REFERENCE UNITS RANGE LAB EMRAC(LOIN C) ADDON CONFIRMATION REQUEST REC'D Performed By: #### EMRAD #### NO LOCATION NEEDED GLUCOSE-POCT Collected: 02/02/2018 Status: F Source: [facility] 8:52 AM [facility] REPOSITORY TYPE CODE TESTS RESULT OUT OF RANGE REFERENCE UNITS LAB GLUP(LOINC) 74 - 99 mg/dL High >600 GLUCOSE-POCT Performed By: #### GLUPO #### [facility] [address] [place] [id number] ARTERIAL FULL PANEL Collected: 02/02/2018 Status: F Source: [facility] 8:21 AM [facility] REPOSITORY Order Comment: GLU CALLED AND RB TO ARCELIA SINGH, 02/02/2018 08:37 TYPE CODE TESTS RESULT OUT OF REFERENCE UNITS RANGE LAB PHART(LOIN 7.38 - 7.42 C) pH High 7.44 LAB PCO2A(LOIN 38 - 42 mmHg C) PCO2 Low 27 LAB PO2A(LOINC 85 - 95 mmHg ) PO2 High 164 LAB TEMP(LOINC degrees C ) PATIENT TEMPERATURE 37.0 Result Comment: NOTE: PATIENT RESULTS ARE NOT CORRECTED FOR TEMPERATURE. LAB SO2%A(LOINC) 94 - 100 % SO2 99 LAB HCTN(LOINC) 36.0 - % Low 46.0 HCT 25.0 LAB SODN(LOINC) 136 - 145 mmol/L Low SODIUM 131 LAB POTN(LOINC) 3.5 - 5.3 mmol/L POTASSIUM 4.8 LAB CHLN(LOINC) 98 - 107 mmol/L CHLORIDE 102 LAB IONCA(LOINC) 1.10 - mmol/L 1.33 CALCIUM,IONIZED 1.32 LAB GLUN(LOINC) 74 - 99 mg/dL High GLUCOSE alert 695 Result Comment: GLU CALLED AND RB TO ARCELIA MATHEWS, 02/02/2018 08:37 LAB LACTN(LOINC) 0.4 - 2.0 mmol/L LACTATE 1.1 LAB BSEXB(LOINC) -2.0 - mmol/L 3.0 BASE Low EXCESS-BLOOD -5.0 LAB BICAR(LOINC) 22.0 - mmol/L 26.0 BICARB, Low CALCULATED 18.3 LAB HGBNC(LOINC) 12.0 - g/dL 16.0 Low HGB,CALCULATED 8.5 LAB ANGPN(LOINC) 10 - 25 mmol/L ANION GAP 16 Performed By: #### AFPA3 #### [facility] [address] [facility] [place] [address] BETA-HYDROXYBUTYRATE Collected: Status: CANCELLED Source: [facility] 02/02/2018 8:00 AM [facility] REPOSITORY Order Comment: TEST BETA-HYDROXYBUTYRATE WAS CANCELLED, 02/02/2018 10:00 ?Cancel Reason: Cancelled. TYPE CODE TESTS RESULT OUT OF REFERENCE UNITS RANGE LAB BHB2(LOINC) Canceled BETA-HYDROXY BUTYRATE Result Comment: The beta-hydroxybutyrate test performance characteristics have been validated by [facility] laboratory. This test has not been approved by the FDA; however, such approval is not necessary. Performed By: #### BHB2 #### [facility] [address] [place] [address] GLUCOSE-POCT Collected: 02/02/2018 Status: F Source: [facility] 7:43 [facility] REPOSITORY TYPE CODE TESTS RESULT OUT OF RANGE REFERENCE UNITS LAB GLUP(LOINC) 74 - 99 mg/dL High >600 GLUCOSE-POCT Performed By: #### GLUPO #### [facility] [address] [place] [address] GLUCOSE-POCT Collected: 02/02/2018 Status: F Source: [facility] 7:09 [facility] REPOSITORY TYPE CODE TESTS RESULT OUT OF RANGE REFERENCE UNITS LAB GLUP(LOINC) 74 - 99 mg/dL High >600 GLUCOSE-POCT Performed By: #### GLUPO #### [facility] [address] [place] [address] CBC Collected: 02/02/2018 Status: F Source: [address] REPOSITORY TYPE CODE TESTS RESULT OUT OF REFERENCE UNITS RANGE LAB WBCR(LOINC 4.4 - 11.3 x10E9/L ) WBC 9.4 LAB NRBC(LOINC 0.0-0.0 /100 WBC ) NUCLEATED RBC 0.0 LAB RBCCT(LOIN 4.00 - 5.20 x10E12/L C) Low RBC 3.27 LAB HGB(LOINC) 12.0 - 16.0 g/dL Low HGB 9.3 LAB HCT(LOINC) 36.0 - 46.0 % Low HCT 27.5 LAB MCV(LOINC) 80 - 100 fL MCV 84 LAB MCHC2(LOIN 32.0 - 36.0 g/dL C) MCHC 33.8 LAB PLTCT(LOIN 150 - 450 x10E9/L C) PLT 307 LAB RDWCV(LOIN 11.5 - 14.5 % C) High RDW-CV 15.8 Performed By: #### CBC #### [facility] [address] [place] [address] RENAL FUNCTION PANEL Collected: 02/02/2018 Status: F Source: [facility] 6:39 AM [facility] RE[facility]IT[facility] Order Comment: CALLED AND RB BY ARCELIA MATHEWS, 02/02/2018 10:02 TYPE CODE TESTS RESULT OUT OF REFERENCE UNITS RANGE LAB GLU(LOINC) 74 - 99 mg/dL High alert GLUCOSE 659 Result Comment: CALLED AND RB BY ARCELIA MATHEWS, 02/02/2018 10:02 LAB SOD(LOINC) 136 - 145 mmol/L Low SODIUM 131 LAB K(LOINC) 3.5 - 5.3 mmol/L High POTASSIUM 5.4 LAB CHLOR(LOINC) 98 - 107 mmol/L CHLORIDE 101 LAB BIC(LOINC) 21 - 32 mmol/L Low BICARBONATE 20 LAB ANGAP(LOINC) 10 - 20 mmol/L ANION GAP 15 LAB UREA(LOINC) 6 - 23 mg/dL High UREA NITROGEN 29 LAB CREA(LOINC) 0.50 - mg/dL High 1.05 CREATININE 2.75 LAB GFRFN(LOINC) >60 mL/min/1.73 Abnormal m2 GFR-NON AM. 19 LAB GFRAA(LOINC) >60 mL/min/1.73 Abnormal m2 GFR- AM. 23 Result Comment: CALCULATIONS OF ESTIMATED GFR ARE PERFORMED USING THE MDRD STUDY EQUATION FOR THE IDMS-TRACEABLE CREATININE METHODS. CLIN CHEM 2007;53:766-72 LAB CA(LOINC) 8.6 - 10.6 mg/dL CALCIUM 8.9 LAB PHOS(LOINC) 2.5 - 4.9 mg/dL PHOSPHORUS 4.2 Result Comment: The performance characteristics of phosphorus testing in heparinized plasma have been validated by the individual laboratory site where testing is performed. Testing on heparinized plasma is not approved by the FDA; however, such approval is not necessary. LAB ALB(LOINC) 3.4 - 5.0 g/dL Low ALBUMIN 2.7 Performed By: #### RENAL #### [facility] [address] [place] [address] BETA-HYDROXYBUTYRATE Collected: Status: F Source: [facility] 02/02/2018 6:39 AM [facility] REPOSITORY TYPE CODE TESTS RESULT OUT OF RANGE REFERENCE UNITS LAB BHB2(LOINC) 0.02 - 0.27 mmol/L High 0.48 BETA-HYDROXY BUTYRATE Result Comment: The beta-hydroxybutyrate test performance characteristics have been validated by [facility] laboratory. This test has not been approved by the FDA; however, such approval is not necessary. Performed By: #### BHB2 #### [facility] [address] [place] [address] GLUCOSE-POCT Collected: 02/01/2018 Status: F Source: [facility] 10:36 PM [facility] REPOSITORY TYPE CODE TESTS RESULT OUT OF RANGE REFERENCE UNITS LAB GLUP(LOINC) 74 - 99 mg/dL High 271 GLUCOSE-POCT Performed By: #### GLUPO #### [facility] [address] [place] [address] GLUCOSE-POCT Collected: 02/01/2018 Status: F Source: [facility] 9:07 PM [facility] REPOSITORY TYPE CODE TESTS RESULT OUT OF RANGE REFERENCE UNITS LAB GLUP(LOINC) 74 - 99 mg/dL High 274 GLUCOSE-POCT Performed By: #### GLUPO #### [facility] [address] [place] [address] CLINICAL EVENT Observed: 02/01/2018 Status: UNK Source: [facility] NOTE-SIGN OUT TO 8:24 PM [facility]ITALS REPOSITORY MEDICINE TEAM Event: Topic: sign out to medicine team Details: Ophthalmology attempted several times to discuss postoperative sign out with medicine team without success. We paged Dr. Dawkins through doc halo as well as pager [phone]. Mrs. Ambrose did well in surgery. Her left eye is patched and shielded and she is currently in pacu in stable condition. There is no specific post-operative positioning required, no drops necessary. Ophthalmology will follow up with patient tomorrow and discuss further care. This was also discussed with nursing staff in pacu. please do no hesitate to contact ophthalmology with any questions or concerns ([phone]). Provider / Team Contact Information: Provider/Team Contact Info-Pager Number: [phone] Electronic Signatures: Kirby Ojeda ( (Resident)) (Signed 01-Feb-2018 20:29) Authored: Event, Provider / Team Contact Information Last Updated: 01-Feb-2018 20:29 by Kirby Ojeda ( (Resident)) GLUCOSE-POCT Collected: 02/01/2018 Status: F Source: [facility] 8:06 PM [facility] REPOSITORY TYPE CODE TESTS RESULT OUT OF RANGE REFERENCE UNITS LAB GLUP(LOINC) 74 - 99 mg/dL High 263 GLUCOSE-POCT Performed By: #### GLUPO #### [facility] [address] [place] [address] POST OPERATIVE NOTE - Observed: 02/01/2018 Status: COMPLETED Source: [facility] OR 8:04 PM [facility] REPOSITORY Post Operative Note: PreOp Diagnosis: tractional retinal detachment OS Post-Procedure Diagnosis: same Procedure: 23g PPV OS with endolaser and TRISTAN OS Surgeon: Juan Resident/Fellow/Other Product Development Carpenter: Lynette/Emiliano Anesthesia: general Estimated Blood Loss (mL): none Specimen: no Findings: vitreous hemorrhage, tractional membrane with no retinal tears 360 Signature/Cosignature/Attestation: Attending AttestationI was present for the entire procedure Electronic Signatures: Kirby Ojeda (Resident)) (Signed 01-Feb-2018 20:08) Authored: Post Operative Note Jose Martinez) (Signed 05-Feb-2018 13:03) Authored: Signature/Cosignature/Attestation Co-Signer: Post Operative Note Last Updated: 05-Feb-2018 13:03 by Jose Martinez) HISTORY AND PHYSICAL Observed: 02/01/2018 Status: COMPLETED Source: [facility] - SURGERY > 30 DAYS 5:50 PM [facility]ITALS REPOSITORY History of Present Illness: /Lactating: ? Are You maybe ? Order Testno ? Are You Currently Breastfeedingunable to answer History Present Illness: Reason for surgery: tractional retina detachment left macula off HPI: tractional retina detachment left macula off Allergies: Allergies: ? Lasix: Swelling/Edema Home Medication Review: Home Medications Reviewed: yes Impression/Procedure: Impression and Planned Procedure: tractional retina detachment left macula off, 23 G pars plana vitrectomy/ gas versus oil/ endolaser / possible lensectomy Physical Exam: Constitutional: alert and oriented x3 Eyes: tractional retina detachment left macula off ENMT: as per anesthesia Head/Neck: as per anesthesia Respiratory/Thorax: as per anesthesia Cardiovascular: as per anesthesia Gastrointestinal: as per anesthesia Genitourinary: as per anesthesia Musculoskeletal: as per anesthesia Extremities: as per anesthesia Skin: as per anesthesia Signatures/Attestation/Certification: Attending AttestationI saw and evaluated the patient. I personally obtained the vitale and critical portions of the history and physical exam or was physically present for vitale and critical portions performed by the resident/fellow. I reviewed the resident/fellow?s documentation and discussed the patient with the resident/fellow. I agree with the resident/fellow?s medical decision making as documented in the resident?s note. I personally evaluated the patient (as noted in the above attestation) on 01-Feb-2018 Attending Provider ? Inpatient Certification StatementN/A - observation patient/other outpatient visits Electronic Signatures: Matt Cummings (Resident)) (Signed 01-Feb-2018 17:53) Authored: History of Present Illness, Allergies, Home Medication Review, Impression/Procedure, Physical Exam, Signatures/Attestation/Certification Jose Martinez) (Signed 05-Feb-2018 13:05) Authored: Signatures/Attestation/Certification Co-Signer: History of Present Illness, Allergies, Home Medication Review, Impression/Procedure, Physical Exam, Signatures/Attestation/Certification Last Updated: 05-Feb-2018 13:05 by Jose Martinez) GLUCOSE-POCT Collected: 02/01/2018 Status: F Source: [facility] 4:13 PM [facility] REPOSITORY TYPE CODE TESTS RESULT OUT OF RANGE REFERENCE UNITS LAB GLUP(LOINC) 74 - 99 mg/dL High 300 GLUCOSE-POCT Performed By: #### GLUPO #### [facility] [address] [place] [address] EMR ADDON Collected: 02/01/2018 Status: F Source: [facility] 3:53 PM [facility] REPOSITORY TYPE CODE TESTS RESULT OUT OF REFERENCE UNITS RANGE LAB EMRAC(LOIN C) ADDON CONFIRMATION REQUEST REC'D Performed By: #### EMRAD #### NO LOCATION NEEDED PREOP CHECKLIST Observed: 02/01/2018 Status: UNK Source: [facility] 3:45 PM [facility] REPOSITORY Preop Checklist: Preop Checklist: ? Arrival [id number] ? Arrival Time15:45 ? NPO [id number] 10:30 ? ID Band Onyes ? Allergy Bandyes, lasix ? Consent Signedpending ? H&P Completeyes ? Anesthesia Assessment Completedpending ? EKG Performednot ordered ? Chest X-Ray Performedyes ? Chlorhexadine Bath Givennot applicable ? Soap and water bath with hair shampoo the night before surgerynot applicable ? SCD's Appliedno ? RAND Hose Appliednot ordered ? Denturesnot applicable ? Prostheticsnot applicable ? Hearing Aidsnot applicable ? Valuables Securedsent with family ? Glasses / Contactssent with family ? Bowel Prepno Cardiovascular Assessment: ? Apicalregular ? Radial Pulsespalpable ? Pedal Pulsespalpable ? Extremitieswarm Respiratory Assessment: ? Respirationsregular ? Air Exchangegood Neurological Assessment: ? Level of Consciousnessoriented ? Mobilitymoves all extremities ? Able to Express Selfyes ? Age Appropriateyes ? Emotional Statuscalm Preop Education: ? Surgical Site Infection Preventionyes ? Pain Scales and Managementno Language / Communication: ? Language / CommunicationEnglish Electronic Signatures: Ajith Bowman (GIUSEPPE) (Signed 01-Feb-2018 15:55) Authored: Preop Checklist Last Updated: 01-Feb-2018 15:55 by Ajith Bowman (GIUSEPPE) DAILY PROGRESS Observed: 02/01/2018 Status: COMPLETED Source: [facility] 12:34 PM [facility] RE[facility]ITORY Service: Renal Subjective Data: BERTRAM AMBROSE is a 37 year old Female who is Hospital Day # 4. Additional Information: Poor vision this AM; awaiting surgical intervention Tolerating PO States voiding well Objective Data: Objective Information: T PRBPSpO2 [id number]/5092% Date/Time02/01 5: 5: 5: 5: 5:19 Range(36.7C - 37C ) (80 - 93 ) (18 - 18 ) (106 - 131 )/ (50 - 72 ) (92% - 97% ) Highest temp of 37 C was recorded at 01/31 23:01 Pain with Activity reported at 01/31 21:53: 6 Pain at Rest reported at 02/01 7:00: 2 T PRBPSpO2 [id number]/5092% Date/Time02/01 5: 5: 5: 5: 5:19 Range(36.7C - 37C ) (80 - 93 ) (18 - 18 ) (106 - 131 )/ (50 - 72 ) (92% - 97% ) Highest temp of 37 C was recorded at 01/31 23:01 Physical Exam: Constitutional: awake, not interacitve ENMT: no oral lesions Respiratory/Thorax: clear bilateral anterior apices Cardiovascular: reg, no mrg Gastrointestinal: soft, NT, BS present Extremities: warm, dry, no edema Medication: Medications: Continuous Medications 1. Dextrose 5% - NaCL 0.45% Infusion: 1000 mL IntraVenous <Continuous> Scheduled Medications 1. Carvedilol: 25 mg Oral 2 Times a Day 2. Gabapentin: 300 mg Oral 2 Times a Day 3. guaiFENesin Extended Release: 600 mg Oral Every 12 Hours 4. Heparin SubCutaneous: 5000 unit(s) SubCutaneous Every 12 Hours 5. Insulin Detemir (Levemir) Injectable: 26 unit(s) SubCutaneous At Bedtime 6. Insulin Lispro (HumaLOG) Injectable: 2 unit(s) SubCutaneous 3 Times a Day Before Meals 7. Insulin Lispro Mild Corrective Scale: unit(s) SubCutaneous 3 Times a Day Before Meals 8. Lactated Ringers IV Bolus: 1000 mL IntraVenous Piggyback Once 9. levoFLOXacin 750 mg IVPB/ Premix 150 mL: 150 mL IntraVenous Piggyback Every 48 Hours 10. NIFEdipine Extended Release: 60 mg Oral Daily 11. Pravastatin: 40 mg Oral Daily 12. predniSONE: 5 mg Oral Daily 13. Sodium Bicarbonate: 1300 mg Oral Every 12 Hours 14. Tacrolimus: 1 mg Oral <User Schedule> PRN Medications 1. Acetaminophen: 650 mg Oral Every 4 Hours 2. Albuterol 2.5 mg/ 3 mL Nebulizer Soln: 3 mL Inhalation Every 6 Hours 3. Dextrose 50% in Water Injectable: 25 gram(s) IntraVenous Push Every 15 Minutes 4. Docusate: 100 mg Oral 2 Times a Day 5. Glucagon Injectable: 1 mg IntraMuscular Every 15 Minutes 6. oxyCODONE Immediate Release: 5 mg Oral Every 4 Hours 7. Zolpidem: 10 mg Oral At Bedtime Currently Suspended Medications 1. Mycophenolate Mofetil: 500 mg Oral Every 12 Hours Recent Lab Results: Results: I have reviewed these laboratory results: Complete Blood Count 01-Feb-2018 10:20:00 ResultValue White Blood Cell Count 6.7 Nucleated Erythrocyte Count 0.6 Red Blood Cell Count 3.20 L HGB 8.8 L HCT 26.0 L MCV 81 MCHC 33.8 PLT 272 RDW-CV 15.3 H Renal Function Panel 01-Feb-2018 10:20:00 ResultValue Glucose, Serum 265 H NA 139 K 3.8 CL 109 H Bicarbonate, Serum 23 Anion Gap, Serum 11 BUN 25 H CREAT 2.94 H GFR-Non 18 A GFR- 22 A Calcium, Serum 8.9 Phosphorus, Serum 3.2 ALB 2.3 L Glucose_POCT 01-Feb-2018 07:25:00 ResultValue Glucose-POCT 248 H Tacrolimus, Blood 31-Jan-2018 17:31:00 ResultValue Tacrolimus, Blood <2.0 Radiology Results: Results: Impression: Unremarkable ultrasound and Doppler evaluation of the transplant kidney as detailed above. Incidentally noted is the partially visualized right ovarian cyst, as seenon recent CT scan. Follow-up can be obtained in 6-8 weeks to document resolution or growth. Ultrasound Renal Bilateral [Feb 01 2018 9:37AM] Impression: Atrophic echogenic kidneys, consistent with chronic medical renal disease. Partially visualized suspected right ovarian cyst. Ultrasound Renal Bilateral [Feb 01 2018 9:35AM] Impression: [Atrophic echogenic kidneys, consistent with chronic medical renal disease. 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 Patient was presented to the OSH on 01/27/2018 with fever, chills, and cough and admitted to ICU with HCAP, Acute respiratory failure requiring BiPAP, and NEL with Cr 3.9. Patient received Tacrolimus sublingual and IV steroids. MMF was held. Patient was transferred to [facility] for further management. Transplant nephrology consulted for NEL in DDKT and concern for rejection. Renal allograft function: Improving. Patient's baseline is Cr ranges from 2-2.5 in the past year. Last Cr was 2.3 on 01/08/2018 at [facility]. US Renal Transplant: No hydronephrosis or nephrolithiasis. Cr continues to fall today Her tacrolimus trough (drawn at 17:31 with dose at 5:57 am), was undetectable and <2-- may have missed 1 dose on day in ER, however, suggest to increase to 2 mg twice a day starting with this PM dose, then repeat trough (30 min prior to dose) on 02/03/18 OK to have surgery for retinal detachment from renal perspective Electronic Signatures: Dorcas Acevedo) (Signed 01-Feb-2018 12:42) Authored: Service, Subjective Data, Objective Data, Assessment and Plan, Signature/Cosignature/Attestation Last Updated: 01-Feb-2018 12:42 by Dorcas Acevedo) CBC Collected: 02/01/2018 Status: F Source: [place] 10:20 [facility] REPOSITORY TYPE CODE TESTS RESULT OUT OF REFERENCE UNITS RANGE LAB WBCR(LOINC 4.4 - 11.3 x10E9/L ) WBC 6.7 LAB NRBC(LOINC 0.0-0.0 /100 WBC ) NUCLEATED RBC 0.6 LAB RBCCT(LOIN 4.00 - 5.20 x10E12/L C) Low RBC 3.20 LAB HGB(LOINC) 12.0 - 16.0 g/dL Low HGB 8.8 LAB HCT(LOINC) 36.0 - 46.0 % Low HCT 26.0 LAB MCV(LOINC) 80 - 100 fL MCV 81 LAB MCHC2(LOIN 32.0 - 36.0 g/dL C) MCHC 33.8 LAB PLTCT(LOIN 150 - 450 x10E9/L C) PLT 272 LAB RDWCV(LOIN 11.5 - 14.5 % C) High RDW-CV 15.3 Performed By: #### CBC #### [facility] [address] [place] [address] RENAL FUNCTION PANEL Collected: 02/01/2018 Status: F Source: [place] 10:20 [facility] REPOSITORY TYPE CODE TESTS RESULT OUT OF RANGE REFERENCE UNITS LAB GLU(LOINC) 74 - 99 mg/dL High GLUCOSE 265 LAB SOD(LOINC) 136 - 145 mmol/L SODIUM 139 LAB K(LOINC) 3.5 - 5.3 mmol/L POTASSIUM 3.8 LAB CHLOR(LOIN 98 - 107 mmol/L C) High CHLORIDE 109 LAB BIC(LOINC) 21 - 32 mmol/L BICARBONATE 23 LAB ANGAP(LOIN 10 - 20 mmol/L C) ANION GAP 11 LAB UREA(LOINC 6 - 23 mg/dL ) High UREA NITROGEN 25 LAB CREA(LOINC 0.50 - 1.05 mg/dL ) High CREATININE 2.94 LAB GFRFN(LOIN >60 mL/min/1.7 C) 3m2 GFR-NON Abnormal AM. 18 LAB GFRAA(LOIN >60 mL/min/1.7 C) 3m2 GFR- Abnormal AM. 22 Result Comment: CALCULATIONS OF ESTIMATED GFR ARE PERFORMED USING THE MDRD STUDY EQUATION FOR THE IDMS-TRACEABLE CREATININE METHODS. CLIN CHEM 2007;53:766-72 LAB CA(LOINC) 8.6 - 10.6 mg/dL CALCIUM 8.9 LAB PHOS(LOINC) 2.5 - 4.9 mg/dL PHOSPHORUS 3.2 Result Comment: The performance characteristics of phosphorus testing in heparinized plasma have been validated by the individual laboratory site where testing is performed. Testing on heparinized plasma is not approved by the FDA; however, such approval is not necessary. LAB ALB(LOINC) 3.4 - 5.0 g/dL Low ALBUMIN 2.3 Performed By: #### RENAL #### [facility] [address] [place] [address] TACROLIMUS Collected: 02/01/2018 Status: F Source: [place] 10:20 [facility] REPOSITORY TYPE CODE TESTS RESULT OUT OF REFERENCE UNITS RANGE LAB FK506(LOIN 2.0 - 15.0 ng/mL C) TACROLIMUS 2.2 Result Comment: NOTE: Result was obtained using a chemiluminescent microparticle immunoassay (CMIA) on the Public Health Inspector i system. Optimal therapeutic ranges for immuno- suppressant drugs depend upon an individual patient's current clinical state, type of organ transplant, time post-transplant, co-administration of other immunosuppressants, and other clinical factors. The results of this test should be correlated with additional clinical and laboratory data before changes in treatment regimens are made. Performed By: #### FK506 #### [facility] [address] [place], [place] [id number] HCG,BETA-QUANTITATIVE Collected: Status: F Source: [place] 02/01/2018 10:20 AM HOSPITALS REPOSITORY TYPE CODE TESTS RESULT OUT OF RANGE REFERENCE UNITS LAB HCGQU(LOINC IU/L ) <2 HCG,BETA-CYNTHIA NTITATIVE Result Comment: Low-level positive HCG results can be seen in early , in olegario- or post-menopausal females due to normal pituitary HCG production, or with analytic interference. Repeat testing in 48-72 hours can aid in assessing for as results should double in this time period. FSH measurement is recommended in olegario- or post-menopausal females as concurrent elevation of FSH can support pituitary production as the source of the HCG elevation. . Total HCG measurement is performed using the Siemens Advia Centaur immunoassay which detects intact HCG and free beta HCG subunit. This test is not indicated for use as a tumor marker. HCG testing is performed using a different test methodology at [facility] than other [facility]. Direct result comparison should only be made within the same method. REF VALUES NON FEMALE <5 MALES <5 Performed By: #### HCGQU #### [facility] [address] [facility] [address] [place] [address] DAILY PROGRESS Observed: 02/01/2018 Status: COMPLETED Source: [place] NOTE-INFECTIOUS DISEASE 7:58 AM HOSPITALS REPOSITORY Service: Infectious Disease Subjective Data: BERTRAM AMBROSE is a 37 year old Female who is Hospital Day # 4. No acute events overnight. Pt reports feeling better overall. Improved shortness of breath, improved general malaise. Has been off supplemental oxygen for 48 hours. Has headache this morning with nausea,persistent right flank pain, and decreased appetite. Gave 1 time zofran 4 mg. Opthamology plans for surgery this afternoon. She did eat little bit of sauage and egg at 10:30 am. Objective Data: Objective Information: T PRBPSpO2 [id number]/5092% Date/Time02/01 5: 5: 5: 5:199 5:19 Range(36.7C - 37C ) (80 - 93 ) (18 - 18 ) (106 - 131 )/ (50 - 79 ) (92% - 97% ) Highest temp of 37 C was recorded at 01/31 23:01 Pain with Activity reported at 01/31 21:53: 6 Pain at Rest reported at 02/01 7:00: 2 Physical Exam: Constitutional: Looks well in bed not in pain or distress Eyes: Decreased visual pérez bilaterally to confrontation with excessive tearing of left eye ENMT: dry mucous membranes Head/Neck: Supple, scar of prior tracheostomy Respiratory/Thorax: Vesicular breathing, crackles with no wheeze Cardiovascular: S1, S2 no murmur no added sounds Gastrointestinal: Mild abdominal tenderness diffusely over all 4 quadrants. Genitourinary: + bilateral flank tenderness Musculoskeletal: No swelling, erythema or induration Extremities: Right metatarsal foot amputation. No peripheral edema. Neurological: A&Ox3. No appreciable fnd's Lymphatic: No significant lymphadenopathy Psychological: Appropriate mood and behavior Skin: excessive scarring over the left lower leg, abdominal wall Medication: Medications: Continuous Medications 1. Dextrose 5% - NaCL 0.45% Infusion: 1000 mL IntraVenous <Continuous> Scheduled Medications 1. Carvedilol: 25 mg Oral 2 Times a Day 2. Gabapentin: 300 mg Oral 2 Times a Day 3. guaiFENesin Extended Release: 600 mg Oral Every 12 Hours 4. Heparin SubCutaneous: 5000 unit(s) SubCutaneous Every 12 Hours 5. Insulin Detemir (Levemir) Injectable: 26 unit(s) SubCutaneous At Bedtime 6. Insulin Lispro (HumaLOG) Injectable: 2 unit(s) SubCutaneous 3 Times a Day Before Meals 7. Insulin Lispro Mild Corrective Scale: unit(s) SubCutaneous 3 Times a Day Before Meals 8. Lactated Ringers IV Bolus: 1000 mL IntraVenous Piggyback Once 9. levoFLOXacin 750 mg IVPB/ Premix 150 mL: 150 mL IntraVenous Piggyback Every 48 Hours 10. NIFEdipine Extended Release: 60 mg Oral Daily 11. Pravastatin: 40 mg Oral Daily 12. predniSONE: 5 mg Oral Daily 13. Sodium Bicarbonate: 1300 mg Oral Every 12 Hours 14. Tacrolimus: 1 mg Oral <User Schedule> PRN Medications 1. Acetaminophen: 650 mg Oral Every 4 Hours 2. Albuterol 2.5 mg/ 3 mL Nebulizer Soln: 3 mL Inhalation Every 6 Hours 3. Dextrose 50% in Water Injectable: 25 gram(s) IntraVenous Push Every 15 Minutes 4. Docusate: 100 mg Oral 2 Times a Day 5. Glucagon Injectable: 1 mg IntraMuscular Every 15 Minutes 6. oxyCODONE Immediate Release: 5 mg Oral Every 4 Hours 7. Zolpidem: 10 mg Oral At Bedtime Currently Suspended Medications 1. Mycophenolate Mofetil: 500 mg Oral Every 12 Hours Recent Lab Results: Results: I have reviewed these laboratory results: Complete Blood Count 01-Feb-2018 10:20:00 ResultValue White Blood Cell Count 6.7 Nucleated Erythrocyte Count 0.6 Red Blood Cell Count 3.20 L HGB 8.8 L HCT 26.0 L MCV 81 MCHC 33.8 PLT 272 RDW-CV 15.3 H Renal Function Panel 01-Feb-2018 10:20:00 ResultValue Glucose, Serum 265 H NA 139 K 3.8 CL 109 H Bicarbonate, Serum 23 Anion Gap, Serum 11 BUN 25 H CREAT 2.94 H GFR-Non 18 A GFR- 22 A Calcium, Serum 8.9 Phosphorus, Serum 3.2 ALB 2.3 L Glucose_POCT Trending View [id number] 07:25:00 31-Jan-2018 22:53:00 Glucose-OENT729 H 334 H Tacrolimus, Blood 31-Jan-2018 17:31:00 ResultValue Tacrolimus, Blood <2.0 Assessment and Plan: Assessment: Patient is a 37 years old female with Type I diabetes mellitus, renal transplantation with history of rejection on tacrolimus, prednisone, and mycophenolate mofetil, 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 Patient complaining of shortness of breath and bilateral flank pain on admission. Hospital course at [facility] complicated by ICU stay requiring Bipap. CT abs/pelvis showed abdominal cystic lesion, bilateral atrophic tunica-biloxi kidneys. Renal ultrasound negative for hydronephrosis or nephrolithiasis. Concern for acute kidney transplant rejection. Today (02/01): -Stat optho consult revealed bilateral retinal detachment needing surgery scheduled for today (02/01). Will keep pt NPO with D5/1/2 NS mIVF. -Shortness of breath improved. Now satting well on room air for 48 hours. Continue pulmonary hygiene. Continue IV levofloxacin on day 6. Can transition to oral tomorrow if PO intake ok. -Creat improved at 2.94. Continue strict I/O's. FeNa 2.4%. -Tacrolimus level <2. Will follow-up renal recommendations. -+ orthostatic vital signs. Bolus 1L LR. Encourage PO intake. Consider starting mIVF NS when back from surgery. 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 Will probably need 2 -3 week course. -CXR revealed patchy bilateral infiltrates -Continue pulmonary hygiene with respiratory therapy -Follow up sputum culture for legionella BCYE media -Trend daily CBC #Renal transplant with history of rejection, on tacrolimus, mycophenolate, and prednisone #Acute kidney injury in setting of infection, slowly recovering creat at 2.984 down from 3.28 2 days ago -Baseline creat (2-2.5). Most recent creat 2.3 on 01/08/18 -Nephrology consult to evaluate for rejection . Appreciate recs: will order urine electrolyte studies, renal ultrasound for better evaluation of transplant kidney. Urine electrolytes revealed FeNA 2.48% most likely intrinsic ATN. -Patient would like to continue follow up with her managing jeweler at [facility]. -Continue tacrolimus and prednisone. Will hold mycophenolate for now. -Uploaded CT abd/pelvis into system. Reveals bilateral kidney atrophy. Transplant in right iliac fossa. Diffuse atherosclerotic calcifications of aorta, superior mesenteric, inferior mesenteric, and splenic arteries. -Bilateral renal ultrasound revealed findings consistent with CKD. No evidence of hydronephrosis or nephrolithiasis. -Minimize contrast exposure -Avoid nephrotoxic medications -Trend daily rfp -Strict I/O's #Peritoneal inclusion cystic lesion: -CT abs/pelvis showed adnexal mass with differential ovarian cyst vs. lymphocele with pedunculated uterine fibroids. Appreciate wet process operator recs given multiple abdominal surgeries likely peritoneal inclusion cyst. Follow-up imaging recommended in 6-12 months for surveillance. -Appreciate wet process operator recs, flank pain unlikely to by gynecological in origin. Elevated CA-125 non-specific in premenopausal woman. Also discussed with pt need for contraception. Pt may consider paragard IUD. #Type I diabetes mellitus, history of non-ketotic hyperglycemia: -Resume insulin Detemir and meal time sliding scale -Appreciate endocrinology recs lispro 2 units with meals and sliding scale. 1 unit for each 50 above 150. Detemir at 26 units. POCT ACHS, and hypoglycemia protocol. F: will consider mIVF when back from surgery E: replete as needed N: NPO until after surgery, resume diabetic diet DVT prophylaxis: heparin subq Full Code Signature/Cosignature/Attestation: Attending AttestationI saw and evaluated the patient. I personally obtained the vitale and critical portions of the history and physical exam or was physically present for vitale and critical portions performed by the resident/fellow. I reviewed the resident/fellow?s documentation and discussed the patient with the resident/fellow. I agree with the resident/fellow?s medical decision making as documented in the resident?s note. I personally evaluated the patient (as noted in the above attestation) on 01-Feb-2018 Electronic Signatures: Josee Collins (Resident)) (Signed 01-Feb-2018 12:34) Authored: Service, Subjective Data, Objective Data, Assessment and Plan, Signature/Cosignature/Attestation Marleen Goldstein) (Signed 01-Feb-2018 16:03) Authored: Signature/Cosignature/Attestation Co-Signer: Service, Subjective Data, Objective Data, Assessment and Plan, Signature/Cosignature/Attestation Last Updated: 01-Feb-2018 16:03 by Marleen Goldstein) DAILY PROGRESS Observed: 02/01/2018 Status: COMPLETED Source: [facility] 7:29 AM [facility]ITALS REPOSITORY Consult Type: subsequent visit/care Service: Endocrinology Subjective Data: BERTRAM AMBROSE is a 37 year old Female who is Hospital Day # 4. Objective Data: Objective Information: T PRBPSpO2 Value36.52253690/5092% Date/Time02/01 5: 5:199/1 5:199/1 5:199/1 5:19 Range(36.7C - 37C ) (80 - 93 ) (18 - 18 ) (106 - 131 )/ (50 - 79 ) (92% - 97% ) Highest temp of 37 C was recorded at 01/31 23:01 Pain with Activity reported at 01/31 21:53: 6 Pain at Rest reported at 01/31 21:53: 6 Physical Exam: Constitutional: Well developed, awake/alert/oriented x3, no distress, alert and cooperative Head/Neck: Neck supple, no apparent injury, thyroid without mass or tenderness, No JVD, trachea midline, no bruits Gastrointestinal: Nondistended, soft, non-tender, no rebound tenderness or guarding, no masses palpable, no organomegaly, +BS, no bruits Extremities: normal extremities, no cyanosis edema, contusions or wounds, no clubbing Neurological: alert and oriented x3, intact senses, motor, response and reflexes, normal strength Skin: Warm and dry, no lesions, no rashes Medication: Medications: ANTI-INFECTIVES: 1. levoFLOXacin 750 mg IVPB/ Premix 150 mL: 150 mL IntraVenous Piggyback Every 48 Hours CARDIOVASCULAR AGENTS: 1. Carvedilol: 25 mg Oral 2 Times a Day 2. NIFEdipine Extended Release: 60 mg Oral Daily CENTRAL NERVOUS SYSTEM AGENTS: 1. Acetaminophen: 650 mg Oral Every 4 Hours PRN 2. oxyCODONE Immediate Release: 5 mg Oral Every 4 Hours PRN 3. Gabapentin: 300 mg Oral 2 Times a Day 4. Zolpidem: 10 mg Oral At Bedtime PRN COAGULATION MODIFIERS: 1. Heparin SubCutaneous: 5000 unit(s) SubCutaneous Every 12 Hours GASTROINTESTINAL AGENTS: 1. Sodium Bicarbonate: 1300 mg Oral Every 12 Hours 2. Docusate: 100 mg Oral 2 Times a Day PRN HORMONES/HORMONE MODIFIERS: 1. predniSONE: 5 mg Oral Daily IMMUNOLOGIC AGENTS: 1. Tacrolimus: 1 mg Oral <User Schedule> METABOLIC AGENTS: 1. Insulin Detemir (Levemir) Injectable: 22 unit(s) SubCutaneous At Bedtime 2. Insulin Lispro Mild Corrective Scale: unit(s) SubCutaneous 3 Times a Day Before Meals 3. Insulin Regular Injectable: 2 unit(s) SubCutaneous 3 Times a Day Before Meals 4. Pravastatin: 40 mg Oral Daily 5. Dextrose 50% in Water Injectable: 25 gram(s) IntraVenous Push Every 15 Minutes PRN 6. Glucagon Injectable: 1 mg IntraMuscular Every 15 Minutes PRN RESPIRATORY AGENTS: 1. Albuterol 2.5 mg/ 3 mL Nebulizer Soln: 3 mL Inhalation Every 6 Hours PRN 2. guaiFENesin Extended Release: 600 mg Oral Every 12 Hours Currently Suspended Medications 1. Mycophenolate Mofetil: 500 mg Oral Every 12 Hours Recent Lab Results: Results: I have reviewed these laboratory results: Glucose_POCT Trending View [id number] 07:25:00 31-Jan-2018 22:53:00 31-Jan-2018 15:48:00 31-Jan-2018 11:42:00 31-Jan-2018 08:46:00 Glucose-[id number] H 334 H 195 H 142 H 70 L Renal Function Panel 31-Jan-2018 08:37:00 ResultValue Glucose, Serum 55 L NA 141 K 4.3 CL 112 H Bicarbonate, Serum 20 L Anion Gap, Serum 13 BUN 27 H CREAT 2.98 H GFR-Non 17 A GFR- 21 A Calcium, Serum 8.9 Phosphorus, Serum 2.9 ALB 2.6 L Assessment and Plan: Assessment: Patient is 37 years old female with hx of Type I diabetes mellitus, DDKT in 2011 in [place], rejection on tacrolimus, prednisone and mycophenolate mofetil, who was transferred from [facility] with legionnaires disease. Endocrinology was consulted for inpatient management of diabetes. 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 Her home regimen is detemir 32 units at bedtime, novolog SSI with meals. Her Hba1c was 11.6% on 01/30/18. Of note she was found to have bilateral retinal detachment so will be going for surgery today. ROS is positive for blurry vision and back pain. BG and labs reviewed. Plan: -Change regular insulin to lispro 2 units with meals -Continue sliding scale with meals. 1 unit for each 50 mg/dl above 150 -Increase detemir to 26 units at bedtime -POCT ACHS -Diabetic diet -Hypoglycemia protocol -Above communicated to primary team Patient was seen, examined and discussed with Dr. Rowe Signature/Cosignature/Attestation: Attending AttestationI reviewed the resident/fellow?s documentation and discussed the patient with the resident/fellow. I agree with the resident/fellow?s medical decision making as documented in the resident?s note. Electronic Signatures: Dexter Pichardo (Fellow)) (Signed 01-Feb-2018 11:26) Authored: Service, Subjective Data, Objective Data, Assessment and Plan, Signature/Cosignature/Attestation Luis Alberto Rowe) (Signed 04-Feb-2018 10:11) Authored: Signature/Cosignature/Attestation Co-Signer: Service, Subjective Data, Objective Data Last Updated: 04-Feb-2018 10:11 by Luis Alberto Rowe) GLUCOSE-POCT Collected: 02/01/2018 Status: F Source: [facility] 7:25 AM HOSPITALS REPOSITORY TYPE CODE TESTS RESULT OUT OF RANGE REFERENCE UNITS LAB GLUP(LOINC) 74 - 99 mg/dL High 248 GLUCOSE-POCT Performed By: #### GLUPO #### [facility] [address] [place] [address] OPERATIVE REPORT Observed: 02/01/2018 Status: UNK Source: [facility] 12:00 [place] [address] Patient Name: BERTRAM AMBROSE : 1980 Date of Service: 02/01/2018 Patient Location: [facility] [id number] Patient Type: I Surgeon: Jose Martinez MD Report Type: Operative Reports PREOPERATIVE DIAGNOSIS: Vitreous hemorrhage with tractional retinal detachment versus rhegmatogenous retinal detachment. POSTOPERATIVE DIAGNOSIS: Vitreous hemorrhage with tractional retinal detachment. OPERATION/PROCEDURE: A 23-gauge pars plana vitrectomy with endolaser and intravitreal Avastin delivery. SURGEON: Jose Martinez MD VISUAL DESIGN LEAD(S): Dr. Kirby Ojeda. ANESTHESIA: General. DESCRIPTION OF FINDINGS: The patient with vitreous hemorrhage and a tractional retinal detachment. No retinal breaks, 360. ESTIMATED BLOOD LOSS: Zero. SPECIMEN: There was no tissue removed. DESCRIPTION OF PROCEDURE: The patient, Bertram Ambrose, was noted to have a vitreous hemorrhage in the clinic and noted with ultrasound to have questionable either retinal detachment versus a tractional detachment needing repair in the operating room to which she agreed. We obtained an informed consent signed by the patient and brought her into the operating room for repair. The patient was brought in, time-out was called, identifying the correct patient and the correct surgical site with anesthesia. Following the time-out, patient was put under general anesthesia by the anesthesia team. We then proceeded to prep the patient in the usual sterile ophthalmic fashion. We began the case using 23-gauge ports following port placement for standard vitrectomy. A core vitrectomy was performed revealing significant amount of blood inside the eye, which was removed. It was also noted that she had a lot of hyaloid membrane vascularization. The vitrectomy proceeded without any issues and the tractional components of the hyaloid were taken down. The retina was noted to be flat with no breaks. We then subsequently moved to continue with placing endolaser to her already existing PRP, which was not complete. Following complete laser placement for this patient in the peripheral retina, we also went toward the bleeding neovascular sites and laser dose. They were found to have stopped bleeding in the OR. After exploring the globe, the retina at the base, it was noted that the patient did not have any retinal breaks, 360 degrees all around, and we subsequently finished the vitrectomy, took the ports out without any complications, put in Ancef and dex, this was subconjunctival injection. At this time, we also gave the patient 0.5 mL of Avastin, which is 2.5 mg/0.1 mL in an intravitreal fashion. The lot number for the Avastin was [id number], expiration is February 24, 2018. Following the Avastin injection, the case was called to an end. Speculum was removed. The patient's drape was removed. She was patched and shielded with ophthalmic ointment and taken to PACU in stable position. Kirby Ojeda MD PhD for Jose Martinez MD EST TT: 02/02/2018 05:33 AM EST DICTATION NUMBER: [id number] SPHERIS JOB NUMBER: [id number] CC: Marleen Goldstein MD, PhD, [id number] Jose Martinez MD, Edited by Jose Martinez 02/05/2018 01:24:17 PM Electronically Signed by Dr. Jose Martinez 02/05/2018 01:24:17 PM GLUCOSE-POCT Collected: 01/31/2018 Status: F Source: [facility] 10:53 PM HOSPITALS REPOSITORY TYPE CODE TESTS RESULT OUT OF RANGE REFERENCE UNITS LAB GLUP(LOINC) 74 - 99 mg/dL High 334 GLUCOSE-POCT Performed By: #### GLUPO #### [facility] [address] [place] [address] US TRANSP KIDNEY Observed: 01/31/2018 Status: F Source: [facility] 8:56 PM HOSPITALS REPOSITORY Patient Name: BERTRAM AMBROSE STUDY: US TRANSP KIDNEY; 01/31/2018 8:56 pm INDICATION: Signs/Symptoms: Pt with legionierres disease and renal transplant presenting with flank pain and NEL. Please evaluate renal transplant and tunica-biloxi kidneys. COMPARISON: CT abdomen pelvis 01/21/2018 ACCESSION NUMBER(S): [id number] ORDERING CLINICIAN: JOSEE COLLINS TECHNIQUE: Grayscale, color, and spectral Doppler of the kidney transplant were performed. FINDINGS: TRANSPLANT KIDNEY: Transplant kidney location: The renal transplant is located in the right iliac fossa. The transplant kidney measures 11.7 cm in craniocaudal dimension. There is no hydronephrosis and hydroureter. No perinephric fluid collections are seen. DOPPLER EVALUATION: RESISTIVE INDICES: The resistive indices were as follows: 0.78 in the superior pole, 0.79 in the midpole, and 0.8 tube in the inferior pole. Wave forms are normal. TRANSPLANT RENAL ARTERY AND VEIN: The main renal artery velocity is 67.3 cm/sec The adjacent iliac artery velocity is 149.2 cm/sec Transplant renal vein is patent. The peak velocity in the main renal vein is 37.8, in the adjacent iliac vein 27.1. IMPRESSION: Unremarkable ultrasound and Doppler evaluation of the transplant kidney as detailed above. Incidentally noted is the partially visualized right ovarian cyst, as seen on recent CT scan. Follow-up can be obtained in 6-8 weeks to document resolution or growth. I personally reviewed the images/study and I agree with the findings as stated. This study was interpreted at [facility] [place], [place]. Electronically signed by: KELSEY GRANADOS MD US RENAL BILAT Observed: 01/31/2018 Status: F Source: [place] 8:15 PM [facility] REPOSITORY Patient Name: BERTRAM AMBROSE STUDY: US RENAL BILAT; 01/31/2018 8:15 pm INDICATION: Signs/Symptoms: Pt with legionierres disease and renal transplant presenting with flank pain and NEL. Please evaluate renal transplant and tunica-biloxi kidneys. COMPARISON: CT abdomen pelvis 01/21/2018 ACCESSION NUMBER(S): [id number] ORDERING CLINICIAN: JOSEE COLLINS TECHNIQUE: Multiple images of the kidneys were obtained . FINDINGS: RIGHT KIDNEY: The right kidney measures 6.5 cm in length. Increased cortical echogenicity. No evidence of nephrolithiasis or hydronephrosis. LEFT KIDNEY: Left kidney measures 8.4 cm in length. Increased cortical echogenicity. No evidence of hydronephrosis number status. BLADDER: Unremarkable. Note is made of large anechoic cystic structure abutting the gallbladder, corresponds to the large ovarian cysts seen on the CT. IMPRESSION: Atrophic echogenic kidneys, consistent with chronic medical renal disease. Partially visualized suspected right ovarian cyst. I personally reviewed the images/study and I agree with the findings as stated. This study was interpreted at [facility], [place], [place]. Electronically signed by: KELSEY GRANADOS MD TACROLIMUS Collected: 01/31/2018 Status: F Source: [place] 5:31 PM [facility] REPOSITORY TYPE CODE TESTS RESULT OUT OF REFERENCE UNITS RANGE LAB FK506(LOIN 2.0 - 15.0 ng/mL C) TACROLIMUS <2.0 Result Comment: NOTE: Result was obtained using a chemiluminescent microparticle immunoassay (CMIA) on the Public Health Inspector i system. Optimal therapeutic ranges for immuno- suppressant drugs depend upon an individual patient's current clinical state, type of organ transplant, time post-transplant, co-administration of other immunosuppressants, and other clinical factors. The results of this test should be correlated with additional clinical and laboratory data before changes in treatment regimens are made. Performed By: #### [id number] #### [facility] [id number] [place], [place] [id number] CONSULT-OPHTHALMOLOGY Observed: Status: COMPLETED Source: [place] 01/31/2018 4:58 PM [facility] REPOSITORY Service: Service: Ophthalmology Consult: Consult requested by (Attending Name): Ameena Reason: vision loss left eye Allergies: ? Lasix: Swelling/Edema Assessment: 37 yo AAF with poorly controlled T1DM, HTN, renal ttx with (prednisone, tacrolimus and mycophenolate), s/p rejection of renal ttx, admitted for legionaire?s disease and PNA. No change in right eye, left eye with acute blurry vision since 01/30 in the AM. Has flashes. Floaters. No black curtain. Last week able to read with left eye. Only on levofloxacin IV. POHx: Long time ago saw retina specialist, laser treatment performed ?OD,, had injections in eye before long time ago. No FHx of glaucoma. Grandfather with sickle cell disease. Has sickle cell trait. Exam: OD 20/80 NIPH, OS temporal visual field with CF @ 2 ft Pupils, 3 mm OU minimally reactive to light, no RAPD EOM, full IOP, 18 mmHg OD, 14 mmHg OS CVF, OD nasal upper field not seen, OS left upper field not seen External, normal SLE lid/ lashes: normal anatomy, no lesions conjunctiva, white and quiet, racial melanosis OU cornea, clear, trace PEE, no stromal opacities, no endothelial lesions AC, deep, no cell or flare Iris, round and minimally reactive to light, after dilation OD posterior synechiae became obvious, pupil misshaped due to synechiae Lens, trace NS OU +1 CS OU, +2 PSC OU AV, no inflammation, hemorrhage, or pigmented cells DFE C/D: not seen Vitreous OD hemorrhage, poor view of back, fiobrous membranes within vitreous OS hemorrhage, poor view of back, fiobrous membranes within vitreous Macula, no view Vessels, no view Periphery, no view A&P: OCT 01/31 OD poor view, fovea irregular, intraretinal fluid, no central thickening OS no view of retina B scan 01/31: OD retinal detachment, vitreous hemorrhage OS retinal detachment, vitreous hemorrhage #Tractional retinal detachment right eye Related to poorly controlled type 1 diabetes, A1c around 10 per event marketing intern Examined with Dr. Srivastava, unsure if macula on or off, OCT with mac on #Tractional retinal detachment left eye Related to poorly controlled type 1 diabetes, A1c around 10 per event marketing intern Macula off Will try to schedule surgery for 02/04/2018 PPV 23 g / gas/ oil/ possible lensectomy Discussed r/b/a of surgery to patient # Visually significant cataract Follow up with anterior segment This case was discussed with Dr. Gerardo Srivastava who agrees to the above plan. Thank you very much for this consult. [place] [phone] with any questions regarding this patient. Matt Kerr MD Ophthalmology Resident, PGY-2 [facility] [employer] Signature/Cosignature/Attestation: Attending AttestationI reviewed the resident/fellow?s documentation and discussed the patient with the resident/fellow. I agree with the resident/fellow?s medical decision making as documented in the resident?s note. Electronic Signatures: Matt Cummings ( (Resident)) (Signed 31-Jan-2018 17:02) Authored: Service, Allergies, Assessment/Recommendations, Signature/Cosignature/Attestation Gerardo Srivastava) (Signed 18-Feb-2018 14:41) Authored: Signature/Cosignature/Attestation Co-Signer: Service, Allergies, Assessment/Recommendations, Signature/Cosignature/Attestation Last Updated: 18-Feb-2018 14:41 by Gerardo Srivastava) GLUCOSE-POCT Collected: 01/31/2018 Status: F Source: [place] 3:48 PM [facility]ALS REPOSITORY TYPE CODE TESTS RESULT OUT OF RANGE REFERENCE UNITS LAB GLUP(LOINC) 74 - 99 mg/dL High 195 GLUCOSE-POCT Performed By: #### GLUPO #### [facility] [id number] [place] [address] DAILY PROGRESS Observed: 01/31/2018 Status: COMPLETED Source: [place] NOTE-RENAL 1:51 PM [facility] REPOSITORY Service: Renal Subjective Data: BERTRAM AMBROSE is a 37 year old Female who is Hospital Day # 3. Ophthalmology taking patient for surgery today for bilateral retinal detachment. Renal function improving from 3.28 to 2.98 today. Good UOP. Objective Data: Objective Information: T PRBPSpO2 [id number]/[id number]% Date/Time01/31 6: 8: 6: 8: 6:00 Range(36.6C - 36.7C ) (81 - 88 ) (16 - 18 ) (127 - 158 )/ (64 - 97 ) (90% - 96% ) Orthostatic 01/31 12:08 P BP [id number] / 64 (106 - 106 ) / (64 - 64 ) [id number] / 39 (79 - 79 ) / (39 - 39 ) [id number] / 50 (87 - 87 ) / (50 - 50 ) Pain with Activity reported at 01/30 21:07: 3 Pain at Rest reported at 01/30 21:07: 3 Physical Exam: Constitutional: NAD, Cooperative ENMT: DMM Head/Neck: NC/AT, Neck supple Respiratory/Thorax: CTAB Cardiovascular: Regular, No rub Gastrointestinal: Soft, non-tender, non-distended Genitourinary: No Yen Extremities: No edema. Right TMA. Neurological: AAOx3. No asterixis. No focal deficits. Psychological: Appropriate mood and behavior Skin: Warm, dry. No vasculitic rash. Scarring from necrotizing fasciitis of left leg. Medication: Medications: ANTI-INFECTIVES: 1. levoFLOXacin 750 mg IVPB/ Premix 150 mL: 150 mL IntraVenous Piggyback Every 48 Hours CARDIOVASCULAR AGENTS: 1. Carvedilol: 25 mg Oral 2 Times a Day 2. NIFEdipine Extended Release: 60 mg Oral Daily CENTRAL NERVOUS SYSTEM AGENTS: 1. Acetaminophen: 650 mg Oral Every 4 Hours PRN 2. oxyCODONE Immediate Release: 5 mg Oral Every 4 Hours PRN 3. Gabapentin: 300 mg Oral 2 Times a Day 4. Zolpidem: 10 mg Oral At Bedtime PRN COAGULATION MODIFIERS: 1. Heparin SubCutaneous: 5000 unit(s) SubCutaneous Every 12 Hours GASTROINTESTINAL AGENTS: 1. Sodium Bicarbonate: 1300 mg Oral Every 12 Hours 2. Docusate: 100 mg Oral 2 Times a Day PRN HORMONES/HORMONE MODIFIERS: 1. predniSONE: 5 mg Oral Daily IMMUNOLOGIC AGENTS: 1. Tacrolimus: 1 mg Oral <User Schedule> METABOLIC AGENTS: 1. Insulin Detemir (Levemir) Injectable: 32 unit(s) SubCutaneous At Bedtime 2. Insulin Lispro Moderate Corrective Scale: unit(s) SubCutaneous 3 Times a Day Before Meals 3. Pravastatin: 40 mg Oral Daily 4. Dextrose 50% in Water Injectable: 25 gram(s) IntraVenous Push Every 15 Minutes PRN 5. Glucagon Injectable: 1 mg IntraMuscular Every 15 Minutes PRN NUTRITIONAL PRODUCTS: 1. Lactated Ringers IV Bolus: 1000 mL IntraVenous Piggyback Once RESPIRATORY AGENTS: 1. Albuterol 2.5 mg/ 3 mL Nebulizer Soln: 3 mL Inhalation Every 6 Hours PRN 2. guaiFENesin Extended Release: 600 mg Oral Every 12 Hours Currently Suspended Medications 1. Mycophenolate Mofetil: 500 mg Oral Every 12 Hours Recent Lab Results: Results: I have reviewed these laboratory results: Complete Blood Count 31-Jan-2018 08:37:00 ResultValue White Blood Cell Count 6.3 Nucleated Erythrocyte Count 0.9 Red Blood Cell Count 3.47 L HGB 9.7 L HCT 28.7 L MCV 83 MCHC 33.8 PLT 294 RDW-CV 15.3 H Renal Function Panel Trending View [id number] 08:37:00 30-Jan-2018 06:24:00 Glucose, Serum55 L 296 H NA141 139 K4.3 4.1 CL112 H 111 H Bicarbonate, Serum20 L 15 L Anion Gap, Serum13 17 BUN27 H 37 H CREAT2.98 H 3.28 H GFR-Non Kxciasdv91 A 16 A GFR- Yxkgjweo83 A 19 A Calcium, Serum8.9 7.8 L Phosphorus, Serum2.9 3.0 ALB2.6 L 2.4 L Urinalysis 30-Jan-2018 14:16:00 ResultValue Color, Urine YELLOW Reference Range: STRAW,YELLOW Appearance, Urine CLEAR Specific Stafford, Urine 1.006 pH, Urine 6.0 Protein, Urine 30 (1+) A Glucose, Urine >=500 (3+) A Blood, Urine SMALL (1+) A Ketones, Urine NEGATIVE Bilirubin, Urine NEGATIVE Urobilinogen, Urine <2.0 Nitrite, Urine NEGATIVE Leukocyte Esterase, Urine NEGATIVE Urinalysis, Microscopic 30-Jan-2018 14:16:00 ResultValue White Cells 1 Red Blood Cells 1 Epithelial Cells, Squamous <1 Culture, Urine 30-Jan-2018 14:16:00 ResultValue Culture, Urine NO GROWTH Complete Blood Count + Differential 30-Jan-2018 06:24:00 ResultValue White Blood Cell Count 8.2 Nucleated Erythrocyte Count 0.5 Red Blood Cell Count 3.10 L HGB 8.7 L HCT 25.6 L MCV 83 MCHC 34.0 PLT 271 RDW-CV 15.5 H Neutrophil % 90.2 Immature Granulocytes % 0.5 Lymphocyte % 4.3 Monocyte % 4.8 Eosinophil % 0.1 Basophil % 0.1 Neutrophil Count 7.38 Lymphocyte Count 0.35 L Monocyte Count 0.39 Eosinophil Count 0.01 Basophil Count 0.01 Hemoglobin A1C, Level 30-Jan-2018 06:24:00 ResultValue Estimated Average Glucose 286 Hemoglobin A1C, Level 11.6 Diagnosis of Diabetes-Adults Non-Diabetic: < or = 5.6% Increased risk for developing diabetes: 5.7-6.4% Diagnostic of diabetes: > or = 6.5% . Monitoring of Diabetes Age (y) Therapeutic Goal (%) Adults: > Cancer Antigen, 125 30-Jan-2018 06:24:00 ResultValue Cancer Antigen, 125 62.1 H Creatine Kinase, Level 30-Jan-2018 06:24:00 ResultValue Creatine Kinase, Level 51 Radiology Results: Results: Impression: 1. Right adnexal cyst measuring 5.4 x 7.1 cm. No definite soft tissue nodule identified within the cyst on this noncontrast study. 2. Bilateral cortical atrophy of the kidneys. There is a transplant kidney in the right iliac fossa which appears normal in size. 3. Diffuse atherosclerotic calcification of the aorta, superior mesenteric artery, inferior mesenteric artery, splenic artery, and vessels of the uterus. 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 Patient was presented to the OSH on 01/27/2018 with fever, chills, and cough and admitted to ICU with HCAP, Acute respiratory failure requiring BiPAP, and NEL with Cr 3.9. Patient received Tacrolimus sublingual and IV steroids. MMF was held. Patient was transferred to [facility] for further management. Transplant nephrology consulted for NEL in DDKT and concern for rejection. 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 Patient's baseline is Cr ranges from 2-2.5 in the past year. Last Cr was 2.3 on 01/08/2018 at [place]. US Renal Transplant: No hydronephrosis or nephrolithiasis. CK: 51 Plan: -Continue with Tacrolimus 1 mg BID and Prednisone 5 mg Daily. Holding Mycophenolate mofetil. -Monitor Tacrolimus level. Tacrolimus per level. Goal tacrolimus level around 5. -Agree with IVF. Encourage PO intake. -Follow up Ur electrolytes and Ur TP/Cr ratio. -Continue with Sodium bicarbonate 1300 mg BID. -Antibiotics per primary team. Consider alternative to fluoroquinolones as may be related to bilateral retinal detachment. -Renally dose medications. -Continue to monitor Strict I/O's, UOP, and daily weights closely. -Avoid nephrotoxic agents, hypotension, NSAIDs, and IV contrast when possible. Discussed with attending. Kyle Miranda Renal Fellow #[id number] Signature/Cosignature/Attestation: Attending AttestationI saw and evaluated the patient. I personally obtained the vitale and critical portions of the history and physical exam or was physically present for vitale and critical portions performed by the resident/fellow. I reviewed the resident/fellow?s documentation and discussed the patient with the resident/fellow. I agree with the resident/fellow?s medical decision making as documented in the resident?s note. I personally evaluated the patient (as noted in the above attestation) on 31-Jan-2018 Electronic Signatures: Kyle Miranda (DO (Fellow)) (Signed 31-Jan-2018 14:04) Authored: Service, Subjective Data, Objective Data, Assessment and Plan, Signature/Cosignature/Attestation Dorcas Acevedo) (Signed 31-Jan-2018 14:39) Authored: Signature/Cosignature/Attestation Co-Signer: Service, Subjective Data, Objective Data, Assessment and Plan, Signature/Cosignature/Attestation Last Updated: 31-Jan-2018 14:39 by Dorcas Acevedo) URINALYSIS Collected: 01/31/2018 Status: F Source: [place] 12:29 PM [facility] REPOSITORY TYPE CODE TESTS RESULT OUT OF RANGE REFERENCE UNITS LAB COLU(LOIN STRAW,YELLOW C) COLOR YELLOW LAB APPRU(MANJIT CLEAR NC) APPEARANCE CLEAR LAB SPGRU(MANJIT 1.005 - 1.035 NC) SPECIFIC GRAVITY 1.010 LAB SUZE(LOINC 5.0 - 8.0 ) pH 5.0 LAB PROTU(MANJIT NEGATIVE mg/dL NC) PROTEIN Abnormal 100 (2+) LAB GLUCU(MANJIT NEGATIVE mg/dL NC) GLUCOSE Abnormal 50 (TRACE) LAB BLDU(LOIN NEGATIVE C) BLOOD NEGATIVE LAB KETU(LOIN NEGATIVE mg/dL C) KETONES NEGATIVE LAB BILIU(MANJIT NEGATIVE NC) BILIRUBIN NEGATIVE LAB UROU2(MANJIT 0.0 - 1.9 mg/dL NC) UROBILINOGEN <2.0 LAB NITRU(MANJIT NEGATIVE NC) NITRITE NEGATIVE LAB LEUKU(MANJIT NEGATIVE NC) LEUKOCYTE ESTERASE NEGATIVE Performed By: #### UA #### [facility] [id number] [place] [address] UA MICROSCOPIC Collected: 01/31/2018 Status: F Source: [place] [address] [place] [address] REPOSITORY TYPE CODE TESTS RESULT OUT OF REFERENCE UNITS RANGE LAB WBCUR(LOINC 0-5 /HPF ) WBC 1 LAB RBCUR(LOINC 0-5 /HPF ) RBC <1 LAB EPSQE(LOINC /HPF ) SQUAMOUS <1 EPITH. CELLS Performed By: #### UAMIC #### [facility] [id number] [place] [id number] TOTAL PROTEIN, URINE Collected: 01/31/2018 Status: F Source: [facility] [address] [place] [address] REPOSITORY TYPE CODE TESTS RESULT OUT OF RANGE REFERENCE UNITS LAB TPSP(LOINC) 0 - 12 mg/dL High TOTAL 172 PROT,URINE SPOT LAB CRTSP(LOINC mg/dL ) 63.8 CREATININE,U RINE LAB TPCRT(LOINC mg/mg Creat ) T. 2.70 PROTEIN/CREA T RATIO Performed By: #### TPS2 #### [facility] [address] [place] [address] ELECTROLYTE, URINE SPOT Collected: 01/31/2018 Status: F Source: [place] [address] [place] [address] REPOSITORY TYPE CODE TESTS RESULT OUT OF RANGE REFERENCE UNITS LAB SODSP(LOINC mmol/L ) 73 SODIUM,URINE SPOT LAB NACRT(LOINC mmol/g ) Creat 114 SODIUM/CREAT RATIO LAB POTSP(LOINC mmol/L ) 16 POTASSIUM,UR INE SPOT LAB POCRT(LOINC mmol/g ) Creat POT/CREAT 25 RATIO LAB CHLSP(LOINC mmol/L ) 78 CHLORIDE,URI NE SPOT LAB CLCRT(LOINC mmol/g ) Creat 122 CHLORIDE/CRE AT RATIO LAB OSMSP(LOINC 200 - 1200 mOsm/kg ) 331 OSMOLALITY,U RINE SPOT LAB UUNSP(LOINC mg/dL ) UREA 320 NITROGEN,URI NE LAB UNCRT(LOINC g/g Creat ) UREA 5.0 NITROGEN/CRE AT RATIO LAB CRTSP(LOINC mg/dL ) 63.8 CREATININE,U RINE Performed By: #### ELCS2 #### [facility] [address] [place] [address] HCG,URINE Collected: 01/31/2018 Status: F Source: [place] 12:29 PM [facility]ITALS REPOSITORY TYPE CODE TESTS RESULT OUT OF REFERENCE UNITS RANGE LAB HCGUR(LOINC Negative ) HCG,URINE NEGATIVE Performed By: #### HCGU #### [facility] [address] [place] [address] CONSULT-ENDOCRINOLOGY Observed: Status: COMPLETED Source: [place] 01/31/2018 11:45 AM [facility]OSPITALS REPOSITORY Service: Service: Endocrinology Consult: Consult requested by (Attending Name): Dr. Goldstein Reason: inpt diabetes management History of Present Illness: HPI: Patient is 37 years old female with hx of Type I diabetes mellitus, DDKT in 2011 in [place], rejection on tacrolimus, prednisone and mycophenolate mofetil, who was transferred from [facility] with legionnaires disease. Endocrinology was consulted for inpatient management of diabetes. 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 Her home regimen is detemir 32 units at bedtime, novolog SSI with meals. Her Hba1c was 11.6% on 01/30/18. Of note she was found to have bilateral retinal detachment so will be going for surgery today. ROS is positive for blurry vision and back pain. Pertinent hx from OSH Admitted The January 27 to the hospital with cough, fever and chills, and acute kidney injury (serum creatinine 3.9. Chest radiograph showed bilateral infiltrates). Was hypoxic during upon admission SPO2 80% febrile but normotensive, had right CVA tenderness. Her labs were notable for BUN 40, K 5.7, lactic acidosis 2.8, white blood cells 9.3, Hb 10.1, platelets 163, INR 1.1, normal AST and ALT, troponin negative. Started initially on Azithromycin, Piperacillin/Tazobactam and vancomycin. Admitted to the intensive care unit, maintained on non-invasive positive pressure ventilation (BiPAP). Day following admission, legionella urine antigen testing came back positive. Antibiotics transitioned to Cefepime plus levofloxacin. Allergies: ? Lasix: Swelling/Edema Objective: Objective Information: T PRBPSpO2 [id number]/7990% Date/Time01/31 6: 8: 6: 8: 6:00 Range(36.6C - 36.7C ) (81 - 88 ) (16 - 18 ) (127 - 158 )/ (64 - 97 ) (90% - 96% ) Physical Exam: Constitutional: Well developed, awake/alert/oriented x3, no distress, alert and cooperative Head/Neck: Neck supple, no apparent injury, thyroid without mass or tenderness, No JVD, trachea midline, no bruits Gastrointestinal: Nondistended, soft, non-tender, no rebound tenderness or guarding, no masses palpable, no organomegaly, +BS, no bruits Extremities: normal extremities, no cyanosis edema, contusions or wounds, no clubbing Neurological: alert and oriented x3, intact senses, motor, response and reflexes, normal strength Skin: Warm and dry, no lesions, no rashes Medications: Medications: ANTI-INFECTIVES: 1. levoFLOXacin 750 mg IVPB/ Premix 150 mL: 150 mL IntraVenous Piggyback Every 48 Hours CARDIOVASCULAR AGENTS: 1. Carvedilol: 25 mg Oral 2 Times a Day 2. NIFEdipine Extended Release: 60 mg Oral Daily CENTRAL NERVOUS SYSTEM AGENTS: 1. Acetaminophen: 650 mg Oral Every 4 Hours PRN 2. oxyCODONE Immediate Release: 5 mg Oral Every 4 Hours PRN 3. Gabapentin: 300 mg Oral 2 Times a Day 4. Zolpidem: 10 mg Oral At Bedtime PRN COAGULATION MODIFIERS: 1. Heparin SubCutaneous: 5000 unit(s) SubCutaneous Every 12 Hours GASTROINTESTINAL AGENTS: 1. Sodium Bicarbonate: 1300 mg Oral Every 12 Hours 2. Docusate: 100 mg Oral 2 Times a Day PRN HORMONES/HORMONE MODIFIERS: 1. predniSONE: 5 mg Oral Daily IMMUNOLOGIC AGENTS: 1. Tacrolimus: 1 mg Oral <User Schedule> METABOLIC AGENTS: 1. Insulin Detemir (Levemir) Injectable: 32 unit(s) SubCutaneous At Bedtime 2. Insulin Lispro Moderate Corrective Scale: unit(s) SubCutaneous 3 Times a Day Before Meals 3. Pravastatin: 40 mg Oral Daily 4. Dextrose 50% in Water Injectable: 25 gram(s) IntraVenous Push Every 15 Minutes PRN 5. Glucagon Injectable: 1 mg IntraMuscular Every 15 Minutes PRN NUTRITIONAL PRODUCTS: 1. Dextrose 5% - NaCL 0.45% Infusion: 1000 mL IntraVenous <Continuous> RESPIRATORY AGENTS: 1. Albuterol 2.5 mg/ 3 mL Nebulizer Soln: 3 mL Inhalation Every 6 Hours PRN 2. guaiFENesin Extended Release: 600 mg Oral Every 12 Hours Currently Suspended Medications 1. Mycophenolate Mofetil: 500 mg Oral Every 12 Hours Recent Lab Results: Results: I have reviewed these laboratory results: Glucose_POCT Trending View [id number] 11:42:00 31-Jan-2018 08:46:00 31-Jan-2018 08:08:00 30-Jan-2018 21:07:00 30-Jan-2018 16:42:00 30-Jan-2018 11:41:00 30-Jan-2018 08:28:00 Glucose-NFLL465 H 70 L 49 L 238 H 134 H 268 H 273 H Complete Blood Count 31-Jan-2018 08:37:00 ResultValue White Blood Cell Count 6.3 Nucleated Erythrocyte Count 0.9 Red Blood Cell Count 3.47 L HGB 9.7 L HCT 28.7 L MCV 83 MCHC 33.8 PLT 294 RDW-CV 15.3 H Renal Function Panel Trending View [id number] 08:37:00 30-Jan-2018 06:24:00 Glucose, Serum55 L 296 H NA141 139 K4.3 4.1 CL112 H 111 H Bicarbonate, Serum20 L 15 L Anion Gap, Serum13 17 BUN27 H 37 H CREAT2.98 H 3.28 H GFR-Non Ibtbnsct68 A 16 A GFR- Bymywvao48 A 19 A Calcium, Serum8.9 7.8 L Phosphorus, Serum2.9 3.0 ALB2.6 L 2.4 L Urinalysis 30-Jan-2018 14:16:00 ResultValue Color, Urine YELLOW Reference Range: STRAW,YELLOW Appearance, Urine CLEAR Specific Stafford, Urine 1.006 pH, Urine 6.0 Protein, Urine 30 (1+) A Glucose, Urine >=500 (3+) A Blood, Urine SMALL (1+) A Ketones, Urine NEGATIVE Bilirubin, Urine NEGATIVE Urobilinogen, Urine <2.0 Nitrite, Urine NEGATIVE Leukocyte Esterase, Urine NEGATIVE Hemoglobin A1C, Level 30-Jan-2018 06:24:00 ResultValue Estimated Average Glucose 286 Hemoglobin A1C, Level 11.6 Diagnosis of Diabetes-Adults Non-Diabetic: < or = 5.6% Increased risk for developing diabetes: 5.7-6.4% Diagnostic of diabetes: > or = 6.5% . Monitoring of Diabetes Age (y) Therapeutic Goal (%) Adults: > Assessment: Patient is 37 years old female with hx of Type I diabetes mellitus, DDKT in 2011 in [place], rejection on tacrolimus, prednisone and mycophenolate mofetil, who was transferred from [facility] with legionnaires disease. Endocrinology was consulted for inpatient management of diabetes. 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 Her home regimen is detemir 32 units at bedtime, novolog SSI with meals. Her Hba1c was 11.6% on 01/30/18. Of note she was found to have bilateral retinal detachment so will be going for surgery today. ROS is positive for blurry vision and back pain. BG and labs reviewed. OR cancelled. Plan: -Start lispro 2 units with meals + sliding scale. 1 unit for each 50 mg/dl above 150 -Decrease detemir to 22 units at bedtime -Discontinue D5 1/2 NSS -POCT ACHS -Diabetic diet -Hypoglycemia protocol -Above communicated to primary team Patient was seen, examined and discussed with Dr. Sherman Electronic Signatures: Dexter Pichardo ( (Fellow)) (Signed 31-Jan-2018 15:08) Authored: Service, History of Present Illness, Allergies, Objective, Assessment/Recommendations, Signature/Cosignature/Attestation Tessa Irizarry) (Signed 31-Jan-2018 15:38) Authored: Signature/Cosignature/Attestation Co-Signer: Service, History of Present Illness, Allergies, Objective Last Updated: 31-Jan-2018 15:38 by Tessa Irizarry) GLUCOSE-POCT Collected: 01/31/2018 Status: F Source: [facility] 11:42 AM HOSPITALS REPOSITORY TYPE CODE TESTS RESULT OUT OF RANGE REFERENCE UNITS LAB GLUP(LOINC) 74 - 99 mg/dL High 142 GLUCOSE-POCT Performed By: #### GLUPO #### [facility] [address] [place] [address] CLINICAL EVENT Observed: 01/31/2018 Status: UNK Source: [facility] NOTE-BILATERAL RETINAL 10:53 AM HOSPITALS REPOSITORY DETACHMENT Event: Topic: Bilateral retinal detachment Details: Patient complaining of blurriness of vision with floaters in left eye. Consulted opthalmology and they found bilateral retinal detachment needing urgent surgery. Calculated cardiac risk index for pre-operative risk at 6.6%. Given low risk, it was decided that urgent surgery was needed to save patient's vision. Electronic Signatures: Jsoee Collins ( (Resident)) (Signed 31-Jan-2018 10:55) Authored: Event Last Updated: 31-Jan-2018 10:55 by Josee Collins (Resident)) DAILY PROGRESS Observed: 01/31/2018 Status: COMPLETED Source: [facility] NOTE-INFECTIOUS DISEASE 10:36 AM HOSPITALS REPOSITORY Service: Infectious Disease Subjective Data: BERTRAM AMBROSE is a 37 year old Female who is Hospital Day # 3. No acute events overnight. Pt complaining of acute monocular vision loss, seeing floaters that started 2 days ago. Shortness of breath improved. Right flank pain persists. No chest pain, rash, headaches, weakness, numbness or tingling of extremities. Objective Data: Objective Information: T PRBPSpO2 [id number]/7990% Date/Time01/31 6: 8: 6: 8: 6:00 Range(36.6C - 36.7C ) (81 - 88 ) (16 - 18 ) (127 - 158 )/ (64 - 97 ) (90% - 96% ) Pain with Activity reported at 01/30 21:07: 3 Pain at Rest reported at 01/30 21:07: 3 T PRBPSpO2 Value36.54335013/7990% Date/Time01/31 6: 8: 6: 8: 6:00 Range(36.6C - 36.7C ) (81 - 88 ) (16 - 18 ) (127 - 158 )/ (64 - 97 ) (90% - 96% ) Physical Exam: Constitutional: Looks well in bed not in pain or distress Eyes: Decreased visual pérez bilaterally to confrontation with excessive tearing of left eye Head/Neck: Supple, scar of prior tracheostomy Respiratory/Thorax: Vesicular breathing, crackles with no wheeze Cardiovascular: S1, S2 no murmur no added sounds Gastrointestinal: Abdominal tenderness all over Musculoskeletal: No swelling, erythema or induration Extremities: Right metatarsal foot amputation. No peripheral edema. Neurological: A&Ox3. No appreciable fnd's Lymphatic: No significant lymphadenopathy Psychological: Appropriate mood and behavior Skin: excessive scarring over the left lower leg, abdominal wall Medication: Medications: Continuous Medications 1. Dextrose 5% - NaCL 0.45% Infusion: 1000 mL IntraVenous <Continuous> Scheduled Medications 1. Carvedilol: 25 mg Oral 2 Times a Day 2. Gabapentin: 300 mg Oral 2 Times a Day 3. guaiFENesin Extended Release: 600 mg Oral Every 12 Hours 4. Heparin SubCutaneous: 5000 unit(s) SubCutaneous Every 12 Hours 5. Insulin Detemir (Levemir) Injectable: 32 unit(s) SubCutaneous At Bedtime 6. Insulin Lispro Moderate Corrective Scale: unit(s) SubCutaneous 3 Times a Day Before Meals 7. levoFLOXacin 750 mg IVPB/ Premix 150 mL: 150 mL IntraVenous Piggyback Every 48 Hours 8. NIFEdipine Extended Release: 60 mg Oral Daily 9. Pravastatin: 40 mg Oral Daily 10. predniSONE: 5 mg Oral Daily 11. Sodium Bicarbonate: 1300 mg Oral Every 12 Hours 12. Tacrolimus: 1 mg Oral <User Schedule> PRN Medications 1. Acetaminophen: 650 mg Oral Every 4 Hours 2. Albuterol 2.5 mg/ 3 mL Nebulizer Soln: 3 mL Inhalation Every 6 Hours 3. Dextrose 50% in Water Injectable: 25 gram(s) IntraVenous Push Every 15 Minutes 4. Docusate: 100 mg Oral 2 Times a Day 5. Glucagon Injectable: 1 mg IntraMuscular Every 15 Minutes 6. oxyCODONE Immediate Release: 5 mg Oral Every 4 Hours 7. Zolpidem: 10 mg Oral At Bedtime Currently Suspended Medications 1. Mycophenolate Mofetil: 500 mg Oral Every 12 Hours Recent Lab Results: Results: I have reviewed these laboratory results: Glucose_POCT Trending View [id number] 11:42:00 31-Jan-2018 08:46:00 31-Jan-2018 08:08:00 Glucose-[id number] H 70 L 49 L Complete Blood Count 31-Jan-2018 08:37:00 ResultValue White Blood Cell Count 6.3 Nucleated Erythrocyte Count 0.9 Red Blood Cell Count 3.47 L HGB 9.7 L HCT 28.7 L MCV 83 MCHC 33.8 PLT 294 RDW-CV 15.3 H Renal Function Panel 31-Jan-2018 08:37:00 ResultValue Glucose, Serum 55 L NA 141 K 4.3 CL 112 H Bicarbonate, Serum 20 L Anion Gap, Serum 13 BUN 27 H CREAT 2.98 H GFR-Non 17 A GFR- 21 A Calcium, Serum 8.9 Phosphorus, Serum 2.9 ALB 2.6 L Radiology Results: Results: Impression: 1. Right adnexal cyst measuring 5.4 x 7.1 cm. No definite soft tissue nodule identified within the cyst on this noncontrast study. 2. Bilateral cortical atrophy of the kidneys. There is a transplant kidney in the right iliac fossa which appears normal in size. 3. Diffuse atherosclerotic calcification of the aorta, superior mesenteric artery, inferior mesenteric artery, splenic artery, and vessels of the uterus. Xray Rad Consult [Jan 31 2018 10:41AM] Impression: Ultrasound Renal Bilateral [Jan 31 2018 7:54AM] Impression: 1. Transplant kidney in the right iliac fossa, within the limitations of the study is grossly unremarkable. 2. Uterine fibroids. Xray Rad Consult [Jan 30 2018 8:10PM] Assessment and Plan: Assessment: Patient is a 37 years old female with Type I diabetes mellitus, renal transplantation with history of rejection on tacrolimus, prednisone, and mycophenolate mofetil, 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 Patient complaining of shortness of breath and bilateral flank pain on admission. Hospital course at [place] complicated by ICU stay requiring Bipap. CT abs/pelvis showed abdominal cystic lesion, bilateral atrophic tunica-biloxi kidneys. Renal ultrasound negative for hydronephrosis or nephrolithiasis. Concern for acute kidney transplant rejection. Today (01/31): -Patient complained of acute worsening of vision. Stat optho consult revealed bilateral retinal detachment needing surgery scheduled for (02/03). -Shortness of breath improved. Now satting well on room air. Continue pulmonary hygiene. -Creat improved at 2.98. Continue strict I/O's. Await renal ultrasound, urine electrolytes -+ orthostatic vital signs. Bolus 1L LR. Encourage PO intake. Consider starting mIVF. 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: -Continue levofloxacin monotherapy, renally dose 750 Q48 hours -CXR revealed patchy bilateral infiltrates -Continue pulmonary hygiene with respiratory therapy -Follow up sputum culture for legionella BCYE media -Trend daily CBC #Renal transplant with history of rejection, on tacrolimus, mycophenolate, and prednisone #Acute kidney injury in setting of infection, slowly recovering creat at 2.98 down from 3.28 yesterday -Baseline creat (2-2.5). 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 -Nephrology consult to evaluate for rejection . Appreciate recs: will order urine electrolyte studies, renal ultrasound for better evaluation of transplant kidney. -Continue tacrolimus and prednisone. Will hold mycophenolate for now. -Uploaded CT abd/pelvis into system. Reveals bilateral kidney atrophy. Transplant in right iliac fossa. Diffuse atherosclerotic calcifications of aorta, superior mesenteric, inferior mesenteric, and splenic arteries. -Minimize contrast exposure -Avoid nephrotoxic medications -Trend daily rfp -Strict I/O's #Abdominal cystic lesions: -CT abs/pelvis showed adnexal mass with differential ovarian cyst vs. 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 Elevated CA-125 non-specific in premenopausal woman. #Type I diabetes mellitus, history of non-ketotic hyperglycemia: -Resume insulin Detemir and meal time sliding scale -Consult endocrinology for inpatient insulin regiment F: none E: replete as needed N: diabetic diet DVT prophylaxis Full Code Signature/Cosignature/Attestation: Attending AttestationI saw and evaluated the patient. I personally obtained the vitale and critical portions of the history and physical exam or was physically present for vitale and critical portions performed by the resident/fellow. I reviewed the resident/fellow?s documentation and discussed the patient with the resident/fellow. I agree with the resident/fellow?s medical decision making as documented in the resident?s note. I personally evaluated the patient (as noted in the above attestation) on 31-Jan-2018 Electronic Signatures: Josee Collins (Resident)) (Signed 31-Jan-2018 15:09) Authored: Service, Subjective Data, Objective Data, Assessment and Plan, Signature/Cosignature/Attestation Marleen Goldstein) (Signed 31-Jan-2018 17:41) Authored: Signature/Cosignature/Attestation Co-Signer: Service, Subjective Data, Objective Data, Assessment and Plan, Signature/Cosignature/Attestation Last Updated: 31-Jan-2018 17:41 by Marleen Goldstein) GLUCOSE-POCT Collected: 01/31/2018 Status: F Source: [facility] 8:46 AM HOSPITALS REPOSITORY TYPE CODE TESTS RESULT OUT OF RANGE REFERENCE UNITS LAB GLUP(LOINC) 74 - 99 mg/dL Low 70 GLUCOSE-POCT Performed By: #### GLUPO #### [facility] [address] [place] [address] CBC Collected: 01/31/2018 Status: F Source: [facility] 8:37 AM [facility]OSPITALS REPOSITORY TYPE CODE TESTS RESULT OUT OF REFERENCE UNITS RANGE LAB WBCR(LOINC 4.4 - 11.3 x10E9/L ) WBC 6.3 LAB NRBC(LOINC 0.0-0.0 /100 WBC ) NUCLEATED RBC 0.9 LAB RBCCT(LOIN 4.00 - 5.20 x10E12/L C) Low RBC 3.47 LAB HGB(LOINC) 12.0 - 16.0 g/dL Low HGB 9.7 LAB HCT(LOINC) 36.0 - 46.0 % Low HCT 28.7 LAB MCV(LOINC) 80 - 100 fL MCV 83 LAB MCHC2(LOIN 32.0 - 36.0 g/dL C) MCHC 33.8 LAB PLTCT(LOIN 150 - 450 x10E9/L C) PLT 294 LAB RDWCV(LOIN 11.5 - 14.5 % C) High RDW-CV 15.3 Performed By: #### CBC #### [facility] [address] [place] [address] RENAL FUNCTION PANEL Collected: 01/31/2018 Status: F Source: [facility] 8:37 AM HOSPITALS REPOSITORY TYPE CODE TESTS RESULT OUT OF RANGE REFERENCE UNITS LAB GLU(LOINC) 74 - 99 mg/dL Low GLUCOSE 55 LAB SOD(LOINC) 136 - 145 mmol/L SODIUM 141 LAB K(LOINC) 3.5 - 5.3 mmol/L POTASSIUM 4.3 LAB CHLOR(LOIN 98 - 107 mmol/L C) High CHLORIDE 112 LAB BIC(LOINC) 21 - 32 mmol/L Low BICARBONATE 20 LAB ANGAP(LOIN 10 - 20 mmol/L C) ANION GAP 13 LAB UREA(LOINC 6 - 23 mg/dL ) High UREA NITROGEN 27 LAB CREA(LOINC 0.50 - 1.05 mg/dL ) High CREATININE 2.98 LAB GFRFN(LOIN >60 mL/min/1.7 C) 3m2 GFR-NON Abnormal AM. 17 LAB GFRAA(LOIN >60 mL/min/1.7 C) 3m2 GFR- Abnormal AM. 21 Result Comment: CALCULATIONS OF ESTIMATED GFR ARE PERFORMED USING THE MDRD STUDY EQUATION FOR THE IDMS-TRACEABLE CREATININE METHODS. CLIN CHEM 2007;53:766-72 LAB CA(LOINC) 8.6 - 10.6 mg/dL CALCIUM 8.9 LAB PHOS(LOINC) 2.5 - 4.9 mg/dL PHOSPHORUS 2.9 Result Comment: The performance characteristics of phosphorus testing in heparinized plasma have been validated by the individual laboratory site where testing is performed. Testing on heparinized plasma is not approved by the FDA; however, such approval is not necessary. LAB ALB(LOINC) 3.4 - 5.0 g/dL Low ALBUMIN 2.6 Performed By: #### RENAL #### [facility] [address] [place] [address] GLUCOSE-POCT Collected: 01/31/2018 Status: F Source: [facility] 8:08 AM HOSPITALS REPOSITORY TYPE CODE TESTS RESULT OUT OF RANGE REFERENCE UNITS LAB GLUP(LOINC) 74 - 99 mg/dL Low 49 GLUCOSE-POCT Performed By: #### GLUPO #### [facility] [address] [place] [address] GLUCOSE-POCT Collected: 01/30/2018 Status: F Source: [facility] 9:07 PM HOSPITALS REPOSITORY TYPE CODE TESTS RESULT OUT OF RANGE REFERENCE UNITS LAB GLUP(LOINC) 74 - 99 mg/dL High 238 GLUCOSE-POCT Performed By: #### GLUPO #### [facility] [address] [place] [address] DISCHARGE PROFILE2 Observed: 01/30/2018 Status: UNK Source: [facility] 5:14 PM HOSPITALS REPOSITORY Discharge Orders: Anticipated Discharge Date: ? Anticipated Discharge [id number] ? Anticipated Discharge Time13:35 Activity: activity as tolerated. May not shower for 1 week(s) after eye suregry. Diet: ? Dietresume normal diet Additional Orders: ? Additional Instructions You were hospitalized for Legionnaires disease and acute kidney injury. We treated you with antibiotic (levofloxacin) every 48 hours. You will need to complete a 3 week course (January 28-February 11). Your kidney tests have come back to normal . You were also see by our eye doctors and had left eye surgery. Please wear shield at bedtime and while sleeping. Avoid pressure to the eye. No water in the eye for 1 week. Please follow-up with ophthalmology this Saturday (02/07) at [facility]. Call Provider If (Homegoing Patients): Breathing harder than normal or having retractions. Temperature is greater than 102 degrees. Any new concerning symptoms. Change in vision. Hospital Course (Home Care/Gold Form): Hospital Course: ? Hospital Course: include significant abnormal lab values Ms. Bertram Ambrose is a 37 year old woman with history of poorly controlled type I diabetes mellitus and CKD s/p renal transplant who was transferred to [facility] from [facility] on (01/29). She was admitted to the infectious disease service with Legionnaires disease and NEL. Of note, she was recently admitted and discharged from [facility] on January 21 with non-ketotic hyperglycemia. At that hospital visit, an abdominal CT showed a cystic structure at the right adnexal area as well as fibroid uterus. There was no read on her transplant kidney or tunica-biloxi kidneys. At the time of transfer there was concern for acute kidney transplant rejection. When she arrived to [facility] she was afebrile and hemodynamically stable. Labs were notable for NEL with creatinine at 2.65 and HgA1C 11.6%. Baseline creatinine (2-2.5) with most recent 2.3 on (01/08). CA-125 levels were also found to be elevated at 62.1. Transplant nephrology, endocrinology, and gynecology teams were then consulted. Transplant nephrology recommended continuing home medication prednisone and tacrolimus as well as IVF while inpatient but to hold mycophenolate mofetil in the setting of NEL. They also recommended obtaining urine electrolytes and renal ultrasound for further evaluation of her kidneys. Urine electrolytes revealed FeNa 2.4% likely intrinsic kidney disease in setting of sepsis from Legionnaires Disease. Renal ultrasound showed atrophic tunica-biloxi kidneys without hydronephrosis or nephrolithiasis. Daily tacrolimus levels were drawn and patient was found to be subtherapeutic and her tacrolimus medication was increased to 2mg BID from 1mg BID. Gynecology evaluated the cystic lesion. The cystic lesion was determined to be a peritoneal inclusion cyst from prior abdominal surgeries and repeat imaging in 6-12 months was recommended for surveillance. The elevated Ca-125 was a non-specific finding in pre-menopausal woman. On (01/31) patient complained of acute mono-ocular vision loss in left eye. Stat ophthalmology consulted was placed. She was found to have bilateral retinal detachment. She then underwent endolaser surgery on her left eye(02/01). Following surgery her vision slowly improved and she received therapeutic eye drop medications from ophthalmology. The day following surgery (02/02) her morning blood glucose levels were greater than 600. She was given 10 units of lispro and started on an insulin drip. Endocrinology recommended giving an additional 10 units of detemir and then shutting the insulin drip off 1 hour after. An ABG was performed which revealed pH 7.44 with pCO2 27. There was no elevated anion gap. She was not in DKA. After receiving the additional detemir and insulin drip her blood glucose levels went down to 200?s. Over the hospital course, patient?s acute kidney improved with maintenance intravenous fluids. Her creatinine came down to baseline at 2.29. Her shortness of breath improved and she remained off of oxygen for most of her hospital course. She was treated with levofloxacin 750 mg every 48 hours for a total 3 week course (01/28-02/18). Physical therapy evaluated the patient and recommended home with home physical therapy. Appropriate follow-up with ophthalmology was scheduled for (02/07). Follow-up appointments were also scheduled to establish care with a primary care provider, transplant managing jeweler, and building surveyor. Patient had just moved to [place] month ago from [place]. She had only been following with a transplant managing jeweler once every 6 months. It was stressed to the patient the importance of following up with all scheduled appointments especially ophthalmology. There was concern that she would not follow-up because she was planning on moving to [place] with her and wanting to establish care as a patient there. She was told that it would be in her best interests to follow with at least the ophthalmology team at since they were the physicians who performed her surgery. Home Care Orders: Face to Face Certification: Home Care Services Needed: yes Skilled Disciplines Ordered: PT Face to Face Encounter Completed: yes Date of Encounter: 05-Feb-2018 Medical Necessity for Homecare (based on clinical findings): Patient would benefit from home PT/OT to improve muscle strengthening & to establish a home exercise program. Homebound Status: homebound Homebound Due to:: Patient is homebound due to diminished exercise tolerance and can only ambulate limited distances. It is taxing and takes extraordinary effort to leave the house. Face to Face Completed and Home Care Orders Reviewed: I certify that this patient is under my care. I have reviewed the information included in the face to face and certify that the home care services ordered are medically necessary for this patient. Home Care Services: ? Home Care Skilled ServiceRehab (PT/OT/SP eval and treat) ? [facility] FINAL REVIEW of Orders: Final Review: ? Final Review of Medication Reconciliation and Orders Completedby Physician ? Reviewing Ruben Collins MD (Resident) at 06-Feb-2018 13:35:51 Appointments: Follow-Up Appointment 01: ? Physician/Dept/ServiceDr. Martin ? Reason for ReferralEstablish with Primary Care Provider ? Scheduled Date/[id number] 09:00 ? [facility] Internal Medicine [address], [place] [address] ? ? CommentsPlease arrive 10-15 minutes early, bring photo ID, current list of medications & dosages, insurance cards and any copay that may apply. If unable to keep this appointment, please call to cancel at least 24 hrs prior to appointment. Follow-Up Appointment 02: ? Physician/Dept/ServiceTransplant Nephrology ? Call to Schedule in2-3 days, Office requests to call you directly to schedule appointment ? [place] [address] ? Phone [phone] ? CommentsPlease arrive 10-15 minutes early, bring photo ID, current list of medications & dosages, insurance cards and any copay that may apply. If unable to keep this appointment, please call to cancel at least 24 hrs prior to appointment. Follow-Up Appointment 03: ? Physician/Dept/ServiceDr. Trichonas - Opthalmology ? Scheduled Date/[id number] 08:20 ? Location[address], [place] [address] ? Phone [phone] ? CommentsPlease arrive 10-15 minutes early, bring photo ID, current list of medications & dosages, insurance cards and any copay that may apply. If unable to keep this appointment, please call to cancel at least 24 hrs prior to appointment. Follow-Up Appointment 04: ? Physician/Dept/ServiceDr. Herlinda Bass - Endocrinology ? Scheduled Date/[id number] 10:00 ? [facility] [address] [address] ? Phone [phone] option [phone] ? CommentsPlease arrive 10-15 minutes early, bring photo ID, current list of medications & dosages, insurance cards and any copay that may apply. If unable to keep this appointment, please call to cancel at least 24 hrs prior to appointment. Electronic Signatures: Josee Collins ( (Resident)) (Signed 06-Feb-2018 13:35) Authored: Discharge Orders, Hospital Course (Home Care/Gold Form), Provider FINAL REVIEW of Orders, Appointments, Gold Form - Machine Clerical Verifier Summary Blu East ( (Resident)) (Signed 05-Feb-2018 12:41) Authored: Discharge Orders, Home Care Orders, Provider FINAL REVIEW of Orders, Appointments Claudy Urrutia (PT ACC REP) (Signed 04-Feb-2018 16:49) Authored: Appointments Marleen Goldstein) (Signed 05-Feb-2018 13:20) Authored: Home Care Orders, Provider FINAL REVIEW of Orders Last Updated: 06-Feb-2018 13:35 by Josee Collins ( (Resident)) GLUCOSE-POCT Collected: 01/30/2018 Status: F Source: [facility] 4:42 PM [facility] REPOSITORY TYPE CODE TESTS RESULT OUT OF RANGE REFERENCE UNITS LAB GLUP(LOINC) 74 - 99 mg/dL High 134 GLUCOSE-POCT Performed By: #### GLUPO #### [facility] [address] [place] [address] EMR ADDON Collected: 01/30/2018 Status: F Source: [facility] 4:03 PM [facility] REPOSITORY TYPE CODE TESTS RESULT OUT OF REFERENCE UNITS RANGE LAB EMRAC(LOIN C) ADDON CONFIRMATION REQUEST REC'D Performed By: #### EMRAD #### NO LOCATION NEEDED RAD OUTSIDE EXAM Observed: 01/30/2018 Status: F Source: [facility] OVER READ 2:20 PM HOSPITALS REPOSITORY Patient Name: BERTRAM AMBROSE STUDY: RAD OUTSIDE EXAM OVER READ; 01/30/2018 2:20 pm INDICATION: PNEUMONIA - GAYLE INPT TO [facility] FLOOR BED STAFF MED FLANK PAIN. CHEST PORTABLE 1 VIEW DATED 01/27/2018 FROM [facility] EXAM LOADED TO PACS FROM CD ON 01/30/2018 AT 2:00PM. DICTATION REQUIRED FOR MEDICAL NECESSITY. ORIGINAL DICTATION NOT AVAILABLE.. COMPARISON: 12/06/2005 chest x-ray. ACCESSION NUMBER(S): [id number] ORDERING CLINICIAN: MARLEEN GOLDSTEIN FINDINGS: CARDIOMEDIASTINAL SILHOUETTE: Cardiomediastinal silhouette is normal in size and configuration. LUNGS: There are bilateral ground-glass and patchy airspace opacities in bilateral lungs. There is no pleural effusion or pneumothorax. ABDOMEN: No remarkable upper abdominal findings. BONES: No acute osseous abnormality. IMPRESSION: Bilateral patchy and ground-glass opacities concerning for multifocal pneumonia. I personally reviewed the images/study and I agree with the findings as stated. This study was interpreted at [place], [place]. Electronically signed by: BRYSON YOUGN MD RAD OUTSIDE EXAM Observed: 01/30/2018 Status: F Source: [facility] OVER READ 2:20 PM HOSPITALS REPOSITORY Patient Name: BERTRAM AMBROSE STUDY: RAD OUTSIDE EXAM OVER READ; 01/30/2018 2:20 pm INDICATION: PNEUMONIA - GAYLE INPT TO [facility] FLOOR BED STAFF MED FLANK PAIN. PELVIC ULTRASOUND (NON ) DATED 01/28/2018 FROM [facility]. EXAM LOADED TO PACS FROM CD ON 01/30/2018 AT 2:00PM. DICTATION REQUIRED FOR MEDICAL NECESSITY. ORIGINAL DICTATION NOT AVAILABLE.. COMPARISON: 01/21/2018 CT abdomen and pelvis ACCESSION NUMBER(S): [id number] ORDERING CLINICIAN: MARLEEN GOLDSTEIN TECHNIQUE: Submitted for interpretation are outside hospital ultrasound images from [facility], bearing the patient's name and dated 01/28/2018 (available for interpretation at [facility] on 01/30/2018). Ultrasound images of the pelvis and right renal transplant.. The report was requested for medical necessity by Dr. MARLEEN GOLDSTEIN. Please note that outside hospital ultrasound interpretation is greatly limited by lack of technical factors, information about clinical setting, etc. The interpretation provided is the best possible under the circumstances but please obtain the original interpretation by the supervising radiologist/service. Multiple multiplanar static diaz scale, color and spectral waveform sonographic images of the pelvis were obtained. Transabdominal ultrasound was performed. FINDINGS: UTERUS: The uterus measures 4.1 cm. The uterine myometrium demonstrates uterine fibroids in the fundus, measuring 3 x 2.9 x 3.1 cm and 2.3 x 2.0 x 1.9 cm... ENDOMETRIUM: The endometrium measures a thickness of 3.8 mm, which is normal. RIGHT ADNEXA: The right ovary measures 1.2 x 2.1 x 1.2 cm and demonstrates normal flow. Right adnexal cyst identified measuring 5.4 cm in diameter. No gross right adnexal masses are seen, no hydrosalpinx. LEFT ADNEXA: The left ovary measures 2.2 x 2.8 x 1.9 cm and demonstrates normal flow. No gross left adnexal masses are seen, no hydrosalpinx. CUL DE SAC: No gross free fluid is seen in the pelvic cul-de-sac. RIGHT KIDNEY: Transplanted kidney is identified in the right iliac fossa. Limited visualization of transplanted kidney is noted due to overlying bowel gas. The kidney measures approximately 11.7 x 5.6 cm. No focal lesions are identified within the visualized portions. No evidence of significant hydronephrosis. IMPRESSION: 1. Transplant kidney in the right iliac fossa, within the limitations of the study is grossly unremarkable. 2. Uterine fibroids. I personally reviewed the image(s) / study and resident, Dr. Woods's interpretation. I agree with the findings as stated. This study has been interpreted at [facility] in [place], [place]. Electronically signed by: LOIS RICHARDSON MD RAD OUTSIDE EXAM Observed: 01/30/2018 Status: F Source: [facility] 2:20 PM HOSPITALS REPOSITORY Patient Name: BERTRAM AMBROSE STUDY: RAD OUTSIDE EXAM OVER READ; 01/30/2018 2:20 pm INDICATION: PNEUMONIA - GAYLE INPT TO [facility] FLOOR BED STAFF MED FLANK PAIN. CT ABDOMEN AND PELVIS WITHOUT CONTRAST DATED 01/21/2018 FROM [facility]. EXAM LOADED TO PACS FROM CD ON 01/30/2018 AT 2:00PM. DICTATION REQUIRED FOR MEDICAL NECESSITY. ORIGINAL DICTATION NOT AVAILABLE.. COMPARISON: None. ACCESSION NUMBER(S): [id number] ORDERING CLINICIAN: MARLEEN GOLDSTEIN TECHNIQUE: Submitted for interpretation are outside hospital CT images from [facility], bearing the patient's name and dated 01/21/2018 (available for interpretation at [facility] on 01/30/2018). These contain a research technician and helical axial series of CT images through the abdomen and pelvis. Coronal and sagittal reconstructions were Field 5 provided. The report was requested for medical necessity by Dr. MARLEEN GOLDSTEIN. Please note that outside hospital CT interpretation is greatly limited by lack of technical factors, information about clinical setting, contrast timing, etc. The interpretation provided is the best possible under the circumstances but please obtain the original interpretation by the supervising radiologist/service. FINDINGS: LOWER CHEST: The visualized lung base is unremarkable. The heart is normal in size without pericardial effusion. No pleural effusion is present. Visualized distal esophagus appears normal. ABDOMEN: LIVER: The liver is normal in size without evidence of focal liver lesions. BILE DUCTS: The intrahepatic and extrahepatic ducts are not dilated. GALLBLADDER: The gallbladder is nondistended and without evidence of radiopaque stones. PANCREAS: The pancreas appears unremarkable. SPLEEN: The spleen is normal in size without focal lesions. ADRENAL GLANDS: Bilateral adrenal glands appear normal. KIDNEYS AND URETERS: There is bilateral cortical atrophy of the kidneys. There is a transplanted kidney in the right iliac fossa which appears normal in size. PELVIS: BLADDER: The urinary bladder appears normal without abnormal wall thickening. REPRODUCTIVE ORGANS: Arcuate versus fibroid uterus. There is a right adnexal cyst measuring 5.4 x 7.1 cm. BOWEL: The stomach is unremarkable. VESSELS: There is diffuse calcifications of the aorta, superior mesenteric artery, inferior mesenteric artery, splenic artery, and along the vessels of the uterus. There is no aneurysmal dilatation of the abdominal aorta. The IVC appears normal. PERITONEUM/RETROPERITONEUM/LYMPH NODES: No ascites or free air, no fluid collection. BONES AND ABDOMINAL WALL: No suspicious osseous lesions are identified. The abdominal soft tissues are unremarkable. IMPRESSION: 1. Right adnexal cyst measuring 5.4 x 7.1 cm. No definite soft tissue nodule identified within the cyst on this noncontrast study. 2. Bilateral cortical atrophy of the kidneys. There is a transplant kidney in the right iliac fossa which appears normal in size. 3. Diffuse atherosclerotic calcification of the aorta, superior mesenteric artery, inferior mesenteric artery, splenic artery, and vessels of the uterus. I personally reviewed the images/study and I agree with the findings as stated. This study was interpreted at [place], [place]. Electronically signed by: LOIS RICHARDSON MD RAD OUTSIDE EXAM Observed: 01/30/2018 Status: F Source: [facility] 2:20 PM HOSPITALS REPOSITORY Patient Name: BERTRAM AMBROSE STUDY: RAD OUTSIDE EXAM OVER READ; 01/30/2018 2:20 pm INDICATION: PNEUMONIA - GAYLE INPT TO [facility] FLOOR BED STAFF MED FLANK PAIN. CT ABDOMEN AND PELVIS WITHOUT CONTRAST DATED 01/21/2018 FROM [facility]. EXAM LOADED TO PACS FROM CD ON 01/30/2018 AT 2:00PM. DICTATION REQUIRED FOR MEDICAL NECESSITY. ORIGINAL DICTATION NOT AVAILABLE.. COMPARISON: None. ACCESSION NUMBER(S): [id number] ORDERING CLINICIAN: MARLEEN GOLDSTEIN TECHNIQUE: Submitted for interpretation are outside hospital CT images from [facility], bearing the patient's name and dated 01/21/2018 (available for interpretation at [facility] on 01/30/2018). These contain a research technician and helical axial series of CT images through the abdomen and pelvis. Coronal and sagittal reconstructions were Field 5 provided. The report was requested for medical necessity by Dr. MARLEEN GOLDSTEIN. Please note that outside hospital CT interpretation is greatly limited by lack of technical factors, information about clinical setting, contrast timing, etc. The interpretation provided is the best possible under the circumstances but please obtain the original interpretation by the supervising radiologist/service. FINDINGS: LOWER CHEST: The visualized lung base is unremarkable. The heart is normal in size without pericardial effusion. No pleural effusion is present. Visualized distal esophagus appears normal. ABDOMEN: LIVER: The liver is normal in size without evidence of focal liver lesions. BILE DUCTS: The intrahepatic and extrahepatic ducts are not dilated. GALLBLADDER: The gallbladder is nondistended and without evidence of radiopaque stones. PANCREAS: The pancreas appears unremarkable. SPLEEN: The spleen is normal in size without focal lesions. ADRENAL GLANDS: Bilateral adrenal glands appear normal. KIDNEYS AND URETERS: There is bilateral cortical atrophy of the kidneys. There is a transplanted kidney in the right iliac fossa which appears normal in size. PELVIS: BLADDER: The urinary bladder appears normal without abnormal wall thickening. REPRODUCTIVE ORGANS: Arcuate versus fibroid uterus. There is a right adnexal cyst measuring 5.4 x 7.1 cm. BOWEL: The stomach is unremarkable. VESSELS: There is diffuse calcifications of the aorta, superior mesenteric artery, inferior mesenteric artery, splenic artery, and along the vessels of the uterus. There is no aneurysmal dilatation of the abdominal aorta. The IVC appears normal. PERITONEUM/RETROPERITONEUM/LYMPH NODES: No ascites or free air, no fluid collection. BONES AND ABDOMINAL WALL: No suspicious osseous lesions are identified. The abdominal soft tissues are unremarkable. IMPRESSION: 1. Right adnexal cyst measuring 5.4 x 7.1 cm. No definite soft tissue nodule identified within the cyst on this noncontrast study. 2. Bilateral cortical atrophy of the kidneys. There is a transplant kidney in the right iliac fossa which appears normal in size. 3. Diffuse atherosclerotic calcification of the aorta, superior mesenteric artery, inferior mesenteric artery, splenic artery, and vessels of the uterus. I personally reviewed the images/study and I agree with the findings as stated. This study was interpreted at [facility], [place], [place]. Electronically signed by: LOIS RICHARDSON MD URINALYSIS Collected: 01/30/2018 Status: F Source: [facility] [address] [place] [address] REPOSITORY TYPE CODE TESTS RESULT OUT OF RANGE REFERENCE UNITS LAB COLU(LOIN STRAW,YELLOW C) COLOR YELLOW LAB APPRU(MANJIT CLEAR NC) APPEARANCE CLEAR LAB SPGRU(MANJIT 1.005 - 1.035 NC) SPECIFIC GRAVITY 1.006 LAB SUZE(LOINC 5.0 - 8.0 ) pH 6.0 LAB PROTU(MANJIT NEGATIVE mg/dL NC) PROTEIN Abnormal 30 (1+) LAB GLUCU(MANJIT NEGATIVE mg/dL NC) GLUCOSE Abnormal >=500 (3+) LAB BLDU(LOIN NEGATIVE C) BLOOD Abnormal SMALL (1+) LAB KETU(LOIN NEGATIVE mg/dL C) KETONES NEGATIVE LAB BILIU(MANJIT NEGATIVE NC) BILIRUBIN NEGATIVE LAB UROU2(MANJIT 0.0 - 1.9 mg/dL NC) UROBILINOGEN <2.0 LAB NITRU(MANJIT NEGATIVE NC) NITRITE NEGATIVE LAB LEUKU(MANJIT NEGATIVE NC) LEUKOCYTE ESTERASE NEGATIVE Performed By: #### UA #### [facility] [id number] [place] [address] UA MICROSCOPIC Collected: 01/30/2018 Status: F Source: [facility] [address] [place] [address] REPOSITORY TYPE CODE TESTS RESULT OUT OF REFERENCE UNITS RANGE LAB WBCUR(LOINC 0-5 /HPF ) WBC 1 LAB RBCUR(LOINC 0-5 /HPF ) RBC 1 LAB EPSQE(LOINC /HPF ) SQUAMOUS <1 EPITH. CELLS Performed By: #### UAMIC #### [facility] [address] [place] [address] URINE Observed: 01/30/2018 Status: F Source: [facility] CULTURE,BACTERIAL 2:16 PM HOSPITALS REPOSITORY PATIENT: BERTRAM AMBROSE LOCATION: [place] [address] BILL#: [id number] : 76 AGE: SEX: F ORDERED BY: BLU EAST SOURCE: URINE COLLECTED: 01/30/18 14:16 ANTIBIOTICS AT GRANT.: RECEIVED : 01/30/18 18:20 SITE: Clean Catch/Voided R E S U L T S URINE CULTURE,BACTERIAL FINAL 01/31/18 11:30 NO GROWTH Performed By: #### URINC #### [facility] [address] [place] [address] ELECTROLYTE, URINE SPOT Collected: 01/30/2018 Status: F Source: [facility] 2:16 PM HOSPITALS REPOSITORY TYPE CODE TESTS RESULT OUT OF RANGE REFERENCE UNITS LAB SODSP(LOINC mmol/L ) 98 SODIUM,URINE SPOT LAB NACRT(LOINC mmol/g ) Creat 336 SODIUM/CREAT RATIO LAB POTSP(LOINC mmol/L ) 13 POTASSIUM,UR INE SPOT LAB POCRT(LOINC mmol/g ) Creat POT/CREAT 45 RATIO LAB CHLSP(LOINC mmol/L ) 104 CHLORIDE,URI NE SPOT LAB CLCRT(LOINC mmol/g ) Creat 356 CHLORIDE/CRE AT RATIO LAB OSMSP(LOINC 200 - 1200 mOsm/kg ) 327 OSMOLALITY,U RINE SPOT LAB UUNSP(LOINC mg/dL ) UREA 216 NITROGEN,URI NE LAB UNCRT(LOINC g/g Creat ) UREA 7.4 NITROGEN/CRE AT RATIO LAB CRTSP(LOINC mg/dL ) 29.2 CREATININE,U RINE Performed By: #### ELCS2 #### [facility] [address] [place] [address] CONSULT-GYNEOLOGICAL / Observed: Status: COMPLETED Source: [facility] ( MEDICAL STUDENT 01/30/2018 1:17 PM HOSPITALS NOTE ) REPOSITORY Service: Service: Gyneological / Obstetric Medical Student: Medical Student Note Consult: Consult requested by (Attending Name): Dr. Goldstein Reason: R. pelvic mass History of Present Illness: Admission Reason: Legionnaire's disease and NEL HPI: Ms. Bertram Ambrose is a 37 y.o. AAF with a h/o T1DM and renal transplant who was transferred to [facility] from [facility] on 01/29. She was admitted to the infectious disease service with Legionnaires disease and NEL. She was recently admitted and discharged from [facility] on January 21 with non-ketotic hyperglycemia. At that hospital visit, an abdominal CT showed a 8x5.9x4.9 cm cystic structure at the R. adnexal area as well as a fibroid uterus. F/u pelvic ultrasound on 01/28 showed a 7.9x5.4x5.3 cm fluid-filled cystic structure in the R. agustín-pelvis a few cm from the transplanted kidney in addition to two fundal pedunculated fibroids. CA-125 levels were drawn at [facility] and found to be elevated to 62.1. Gynecology was consulted for further evaluation of recent CT and ultrasound findings in background of elevated CA-125 levels. On encounter, pt is pleasant and resting comfortably in bed. Endorses R-sided flank and lower-abdominal pain (5/10 in intensity), 15-lb weight loss since October 2017, and early satiety. Denies pelvic pain, dyspareunia, cramping, bloating, dysuria, or vaginal bleeding (periods are regular and flow is moderate). 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 Of note, she was admitted to [facility] on January 27 with cough, fever, chills, and NEL (serum Cr 3.9, baseline 1.3). Chest radiograph showed bilateral infiltrates. She was started initially on Azithromycin, Pip/Hayden, and Vancomycin and subsequently admitted to the ICU on BiPAP. Legionella urine antigen testing was positive and abx were transitioned to Cefepime + Levofloxacin. She was transferred to [facility] with Legionella pneumonia and NEL on 01/29 for further care. While at [facility]: -01/21 CTAP Impression: 8 cm x 5.9 cm x 4.8 cm cystic structure in the right adnexal area. Correlation with US is recommended to r/o possible right adnexal cyst versus possible lymphocele. Calcified fibroid uterus. -01/28 Pelvic U/S: uterus measures 9.0 x 4.1 x 4.0 cm. Endometrium measures 3.8 mm in thickness and is hyperechoic. No endometrial mass. 2 pedunculated uterine fibroids, one projects from the top of the uterine fundus, measuring 2.3 x 1.9 x 2.0 cm. The second measuring 2.9 x 3.0 x 3.1 cm, emanates from the L fundal region and contains a coarse calcification. Pt does not have an IUD. Right ovary measures 2.1 x 1.2 x 1.2 cm. Inseparable from the ovary is a well-defined 7.9 x 5.4 x 5.3 cm fluid-filled structure/cyst that correlates to the fluid-filled collection seen by CT. No visualized R adnexal mass or complex lesion. Normal arterial and venous vascularity. L ovary measures 2.8 x 2.2 x 1.9 cm. No L ovarian cyst, mass, or complex lesion. Normal arterial and venous vascularity. No fluid in the cul-de-sac. -UA (01/27): Spec grav 1.010, Nitrite negative, Leuk esterase positive, 3+ bacteria -Clean-catch urine culture (01/27): no growth -HbA1c (01/20): 12.3% -CBC (01/29): 10.7 > 8.1/24.1 < 211; BUN 41, Cr 3.64 OBHx: -: 15 y.o. Miscarriage at 3.5 months GynHx: -no h/o abnormal PAPs or STIs -Menarche at 7 y.o., periods are regular (21 days apart) and last 4-5 days with manageable flow. Experiences mild, tolerable cramping during menses. -LMP 815 PMHx: -ESRD 2/2 T1DM s/p DDKT in 2011 at [facility] c/b rejection in 2016 -T1DM -HTN -Brown recluse spider bite of left leg in 2011 leading to necrotizing fasciitis (reason for sigmoid colostomy and tracheostomy), extensive debridement of L. leg, thigh, and buttocks, and intubation with tracheostomy Home Medications: -Carvedilol 25 mg PO BID -Nifedipine 60 mg PO BID -Pravastatin 40 mg PO qhs -Gabapentin 300 mg PO q12h -Oxycodone 5 mg PO BID -Prednisone 5 mg PO qd -Mycophenolate Mofetil 500 mg PO BID -Tacrolimus 1 mg PO BID -Cyclobenzaprine 10 mg PO TID -Insulin Detemir 32 U SQ daily -Insulin Aspart 6 U SC TIDCM -Benadryl 25 mg PO -Pepcid -Fluticasone Allergies: -Lasix (hives) PSHx: -Renal transplant at [facility], donor kidney 2011, d/t T1DM -Appendectomy -Poor wound healing -Diverting sigmoid colostomy followed by reversal 07/2017, tracheostomy, and left TMA FMHx: -Paternal grandmother: recently at 74 y.o. from triple negative breast cancer -Denies h/o ovarian, uterine, prostate, or colon cancers -Pt unaware of maternal history Social Hx: -D/c smoking 2 years ago, denies alcohol or illicits -Not currently sexually active (last had sex with >1 month ago, denies h/o dyspareunia) Review Family/Social History and ROS: Constitutional: POSITIVE: Fever, Chills Eyes: NEGATIVE: Vision Loss/ Change Respiratory: POSITIVE: Shortness of Breath Cardiac: NEGATIVE: Chest Pain Gastrointestinal: POSITIVE: Abdominal Pain Genitourinary: POSITIVE: Flank Pain; NEGATIVE: Dysuria, Hematuria Musculoskeletal: NEGATIVE: Swelling Neurological: NEGATIVE: Headache Skin: NEGATIVE: Rash Endocrine: NEGATIVE: Polyuria Allergies: ? Lasix: Swelling/Edema Objective: Objective Information: T PRBPSpO2 [id number]/8295% Date/Time01/30 9: 4:5101/30 4: 9: 9:02 Range(36.5C - 37.7C ) (84 - 89 ) (18 - 18 ) (145 - 165 )/ (75 - 82 ) (92% - 100% ) Highest temp of 37.7 C was recorded at 01/30 5:25 Physical Exam: Constitutional: NAD, pt resting in bed comfortably with at her bedside ENMT: Dry mucous membranes (chapped lips) Head/Neck: NCAT Respiratory/Thorax: Coarse breath sounds on lower lobes of lungs B/L. No wheezes appreciated. Pt is on 2L NC Cardiovascular: S1 and S2 with RRR. No MRG Gastrointestinal: Abdomen soft, non-distended. Exquisitely tender to light and deep palpation of B/L lower quadrants- more pronounced on R side. No RUQ pain or suprapubic tenderness. + BS in all four quadrants. Genitourinary: B/L CVA tenderness and R-sided flank pain. Musculoskeletal: Tenderness to palpation of R paraspinal muscles in lumbar region. No tenderness on palpation of lumbar spinous processes. Extremities: No lower-extremity edema. Pt has amputated R. foot (looks to be a transmetatarsal amputation 2/2 diabetes) Neurological: Alert and oriented to person, place, and recent events Skin: Warm and dry- pt has scattered macules on upper back, arms, and legs (pt says they are calcium deposits). Extensive scarring on L leg, thigh, and buttocks from nec fasc debridement. Medications: Medications: Continuous Medications No continuous medications are active Scheduled Medications 1. Carvedilol: 25 mg Oral 2 Times a Day 2. Gabapentin: 300 mg Oral 2 Times a Day 3. Heparin SubCutaneous: 5000 unit(s) SubCutaneous Every 12 Hours 4. Insulin Detemir (Levemir) Injectable: 32 unit(s) SubCutaneous At Bedtime 5. Insulin Lispro Moderate Corrective Scale: unit(s) SubCutaneous 3 Times a Day Before Meals 6. levoFLOXacin 750 mg IVPB/ Premix 150 mL: 150 mL IntraVenous Piggyback Every 48 Hours 7. Mycophenolate Mofetil: 500 mg Oral Every 12 Hours 8. NIFEdipine Extended Release: 60 mg Oral Daily 9. Pravastatin: 40 mg Oral Daily 10. predniSONE: 5 mg Oral Daily 11. Tacrolimus: 1 mg Oral Every 12 Hours PRN Medications 1. Acetaminophen: 650 mg Oral Every 4 Hours 2. Albuterol 2.5 mg/ 3 mL Nebulizer Soln: 3 mL Inhalation Every 6 Hours 3. Dextrose 50% in Water Injectable: 25 gram(s) IntraVenous Push Every 15 Minutes 4. Docusate: 100 mg Oral 2 Times a Day 5. Glucagon Injectable: 1 mg IntraMuscular Every 15 Minutes 6. oxyCODONE Immediate Release: 5 mg Oral Every 4 Hours 7. Zolpidem: 10 mg Oral At Bedtime Recent Lab Results: Results: I have reviewed these laboratory results: Glucose_POCT Trending View [id number] 11:41:00 30-Jan-2018 08:28:00 Glucose-[id number] H 273 H Complete Blood Count + Differential 30-Jan-2018 06:24:00 ResultValue White Blood Cell Count 8.2 Nucleated Erythrocyte Count 0.5 Red Blood Cell Count 3.10 L HGB 8.7 L HCT 25.6 L MCV 83 MCHC 34.0 PLT 271 RDW-CV 15.5 H Neutrophil % 90.2 Immature Granulocytes % 0.5 Lymphocyte % 4.3 Monocyte % 4.8 Eosinophil % 0.1 Basophil % 0.1 Neutrophil Count 7.38 Lymphocyte Count 0.35 L Monocyte Count 0.39 Eosinophil Count 0.01 Basophil Count 0.01 Cancer Antigen, 125 30-Jan-2018 06:24:00 ResultValue Cancer Antigen, 125 62.1 H Creatine Kinase, Level 30-Jan-2018 06:24:00 ResultValue Creatine Kinase, Level 51 Assessment: 37 y.o. AAF with a h/o T1DM and renal transplant who was transferred to [facility] from [facility] on 01/29 for Legionnaires disease and NEL. Gynecology was consulted for cystic mass in R pelvis found on recent CTAP and US with background of lower R-sided lower abdominal/flank pain and elevated CA-125 levels. R-sided lower abdominal and flank pain -Likely to be renal in etiology, given h/o transplant and recent NEL. -Unremarkable history/ROS to suggest Instructional Leader etiology for symptoms - pt's menstrual cycles are regular and no symptoms of bloating, pelvic pain/cramping. -CA-125 elevation (62.1) is non-specific in premenopausal women - likely benign -F/u urinalysis -Awaiting image uploading from OSH to further evaluate pelvic mass -01/21 CTAP Impression: 8 cm x 5.9 cm x 4.8 cm cystic structure in the right adnexal area. Correlation with US is recommended to r/o possible right adnexal cyst versus possible lymphocele. Calcified fibroid uterus. -01/28 Pelvic U/S: uterus measures 9.0 x 4.1 x 4.0 cm. Endometrium measures 3.8 mm in thickness and is hyperechoic. No endometrial mass. 2 pedunculated uterine fibroids, one projects from the top of the uterine fundus, measuring 2.3 x 1.9 x 2.0 cm. The second measuring 2.9 x 3.0 x 3.1 cm, emanates from the L fundal region and contains a coarse calcification. Inseparable from R ovary is a well-defined 7.9 x 5.4 x 5.3 cm fluid-filled structure/cyst that correlates to the fluid-filled collection seen by CT. No visualized R adnexal mass or complex lesion. Normal arterial and venous vascularity. L ovary measures 2.8 x 2.2 x 1.9 cm. No L ovarian cyst, mass, or complex lesion. Normal arterial and venous vascularity. No fluid in the cul-de-sac. Barby Honeycutt MS4 Gynecology Acting Library Consultant [facility] Class of 2019 R4 Addendum: Briefly, pt is a 37yo with a h/o T1DM and renal transplant who presented as a transfer from [facility] with legionnaires disease and NEL. RATER ASSOCIATE was consulted for incidental finding of R cystic pelvic mass and CA 125 62.1. On further review of ultrasound images, the visualized R cystic pelvic mass doesn't appear to be contiguous with the right ovary. Additionally, on further questioning, pt denies any symptoms to suggest a RATER ASSOCIATE etiology including, early satiety, bloating, AUB, or pelvic pain/cramping. In light of patient's history of multiple abdominal surgeries, it is possible that the visualized cyst could be a peritoneal inclusion cysts. Regardless, given pt is asymptomatic we would not recommend acute intervention at this. Follow-up imaging in 6-12 months can be consider for surveillance and to monitor for development of symptoms. As for the elevation of CA 125 level, interpretation of this biomarker can be confusing in premenopausal women as many other noncancerous conditions including PID, pervious pelvic surgery, IBD, fibroids (which Ms. Ambrose has), or any condition that causes inflammation can lead to falsely elevated levels. Typically, this biomarker is not used to screen for ovarian cancer, but is mostly used to monitor for response to therapy or disease recurrence in patient diagnosed with ovarian cancer. In light of Ms. Ambrose's multiple comorbidities, we did discuss contraception, particularly progesterone only and non hormonal contraception options, as would not be ideally given her health status. Ms. Ambrose's was not amenable to progestogen only contraception but states that she may consider nonhormonal options including a Paragard IUD. She plans to discuss this with her primary RATER ASSOCIATE provider. We will also provide literature about nonhormonal forms of contraception for her. d/w Dr. Fabrizio Trivedi MD, PhD PGY-4 Pager# [phone] Signature/Cosignature/Attestation: Attending AttestationI saw and evaluated the patient. I personally obtained the vitale and critical portions of the history and physical exam or was physically present for vitale and critical portions performed by the resident/fellow. I reviewed the resident/fellow?s documentation and discussed the patient with the resident/fellow. I agree with the resident/fellow?s medical decision making as documented in the resident?s note. I personally evaluated the patient (as noted in the above attestation) on 30-Jan-2018 Electronic Signatures: Kian Trivedi (Resident)) (Signed 31-Jan-2018 22:21) Entered: Assessment/Recommendations, Signature/Cosignature/Attestation Authored: Service, History of Present Illness, Review Family/Social History and ROS, Allergies, Objective, Assessment/Recommendations, Signature/Cosignature/Attestation Madison Dinh) (Signed 31-Jan-2018 23:11) Authored: Signature/Cosignature/Attestation Co-Signer: Service, History of Present Illness, Review Family/Social History and ROS, Allergies, Objective, Assessment/Recommendations, Signature/Cosignature/Attestation Barby Honeycutt (MED STUD) (Signed 30-Jan-2018 14:19) Authored: Service, History of Present Illness, Review Family/Social History and ROS, Allergies, Objective, Assessment/Recommendations Last Updated: 31-Jan-2018 23:11 by Madison Dinh) CONSULT-RENAL Observed: 01/30/2018 Status: COMPLETED Source: [facility] 12:00 PM HOSPITALS REPOSITORY Service: Service: Renal Consult: Consult requested by (Attending Name): Ameena Reason: ESRD s/p DDKT History of Present Illness: HPI: Patient is a 37 years old female with ESRD 2/2 DM type 1 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 Patient has been on HD since ~2006. Patient follows with Dr. Rad Pritchett at [facility]. Patient moved to [place] about 1 month ago and has not established care with Nephrology. Patient's home immunosuppression regimen is Tacrolimus 1 mg BID, Mycophenolate mofetil 500 mg BID, and Prednisone 5 mg Daily. Patient's baseline is Cr ranges from 2-2.5 in the past year. Last Cr was 2.3 on 01/08/2018 at [place]. Patient was presented to the OSH on 01/27/2018 with fever, chills, and cough and admitted to ICU with HCAP, Acute respiratory failure requiring BiPAP, and NEL with Cr 3.9. Patient was started on IVF hydration and antibiotics (Azithromycin, Piperacillin/Tazobactam, and Vancomycin). Legionella urine antigen was positive. Antibiotics transitioned to Cefepime and Levofloxacin. Patient received Tacrolimus sublingual and IV steroids. MMF was held. Patient was transferred to [facility] for further management. Transplant nephrology consulted for NEL in DDKT and concern for rejection. PMH: -ESRD 2/2 DM type 1 s/p DDKT in 2011 at [facility] c/b Rejection treated with Thymoglobulin in 03/2016 -Diabetes mellitus type 1 -HTN -Snake bite -Brown recluse spider bite of left leg leading to Necrotizing fascitis PSH: -Appendectomy -Right TMA -Diverting sigmoid colostomy and reversal -LUE AVF creation -Tracheostomy -Tonsillectomy/Adenoidectomy SH: -Former smoker. Quit 2 years ago. Smoked 1/2 pdd. -Denies alcohol and illicit drug use. Review Family/Social History and ROS: Review Family/Social History and ROS: I have reviewed the family and social history and review of systems from the History and Physical. Social History: Smoking Status: former smoker Alcohol Use: denies Drug Use: denies Constitutional: POSITIVE: Anorexia; NEGATIVE: Fever, Chills Eyes: NEGATIVE: Diploplia, Vision Loss/ Change ENMT: NEGATIVE: Mouth Pain, Throat Pain Respiratory: NEGATIVE: Productive Cough, Shortness of Breath Cardiac: NEGATIVE: Chest Pain, Orthopnea, Palpitations Gastrointestinal: NEGATIVE: Nausea, Vomiting, Diarrhea, Abdominal Pain Genitourinary: NEGATIVE: Dysuria, Hematuria Musculoskeletal: POSITIVE: Weakness; NEGATIVE: Swelling Neurological: NEGATIVE: Dizziness, Headache Skin: NEGATIVE: Pruritus, Rash Allergies: ? Lasix: Swelling/Edema Objective: Objective Information: T PRBPSpO2 [id number]/8295% Date/Time01/30 9: 4: 4: 9: 9:02 Range(36.5C - 37.7C ) (84 - 89 ) (18 - 18 ) (145 - 165 )/ (75 - 82 ) (92% - 100% ) Highest temp of 37.7 C was recorded at 01/30 5:25 Pain with Activity reported at 01/30 9:00: 7 Pain at Rest reported at 01/30 9:00: 7 Weights 01/29 23:17: Weight in kg (Weight (kg)) 72.5 01/29 23:17: Weight in lbs ((lbs)) 160 01/29 23:17: BMI (kg/m2) (BMI (kg/m2)) 25.81 Physical Exam: Constitutional: NAD, Cooperative Eyes: PERRL, Sclera anicteric ENMT: DMM Head/Neck: NC/AT, Neck supple Respiratory/Thorax: CTAB Cardiovascular: Regular, No rub Gastrointestinal: Soft, non-tender, non-distended Genitourinary: No Yen Extremities: No edema. Right TMA. Neurological: AAOx3. No asterixis. No focal deficits. Psychological: Appropriate mood and behavior Skin: Warm, dry. No vasculitic rash. Scarring from necrotizing fasciitis of left leg. Medications: Medications: ANTI-INFECTIVES: 1. levoFLOXacin 750 mg IVPB/ Premix 150 mL: 150 mL IntraVenous Piggyback Every 48 Hours CARDIOVASCULAR AGENTS: 1. Carvedilol: 25 mg Oral 2 Times a Day 2. NIFEdipine Extended Release: 60 mg Oral Daily CENTRAL NERVOUS SYSTEM AGENTS: 1. Acetaminophen: 650 mg Oral Every 4 Hours PRN 2. oxyCODONE Immediate Release: 5 mg Oral Every 4 Hours PRN 3. Gabapentin: 300 mg Oral 2 Times a Day 4. Zolpidem: 10 mg Oral At Bedtime PRN COAGULATION MODIFIERS: 1. Heparin SubCutaneous: 5000 unit(s) SubCutaneous Every 12 Hours GASTROINTESTINAL AGENTS: 1. Docusate: 100 mg Oral 2 Times a Day PRN HORMONES/HORMONE MODIFIERS: 1. predniSONE: 5 mg Oral Daily IMMUNOLOGIC AGENTS: 1. Mycophenolate Mofetil: 500 mg Oral Every 12 Hours 2. Tacrolimus: 1 mg Oral Every 12 Hours METABOLIC AGENTS: 1. Insulin Detemir (Levemir) Injectable: 32 unit(s) SubCutaneous At Bedtime 2. Insulin Lispro Moderate Corrective Scale: unit(s) SubCutaneous 3 Times a Day Before Meals 3. Pravastatin: 40 mg Oral Daily 4. Dextrose 50% in Water Injectable: 25 gram(s) IntraVenous Push Every 15 Minutes PRN 5. Glucagon Injectable: 1 mg IntraMuscular Every 15 Minutes PRN RESPIRATORY AGENTS: 1. Albuterol 2.5 mg/ 3 mL Nebulizer Soln: 3 mL Inhalation Every 6 Hours PRN Recent Lab Results: Results: I have reviewed these laboratory results: Complete Blood Count + Differential 30-Jan-2018 06:24:00 ResultValue White Blood Cell Count 8.2 Nucleated Erythrocyte Count 0.5 Red Blood Cell Count 3.10 L HGB 8.7 L HCT 25.6 L MCV 83 MCHC 34.0 PLT 271 RDW-CV 15.5 H Neutrophil % 90.2 Immature Granulocytes % 0.5 Lymphocyte % 4.3 Monocyte % 4.8 Eosinophil % 0.1 Basophil % 0.1 Neutrophil Count 7.38 Lymphocyte Count 0.35 L Monocyte Count 0.39 Eosinophil Count 0.01 Basophil Count 0.01 Cancer Antigen, 125 30-Jan-2018 06:24:00 ResultValue Cancer Antigen, 125 62.1 H Creatine Kinase, Level 30-Jan-2018 06:24:00 ResultValue Creatine Kinase, Level 51 Radiology Results: Results: Impression: Patchy airspace opacity and consolidation in bilateral lungs, concerning for multifocal pneumonia. Follow-up chest radiograph to resolution is recommended. Xray Chest 2 View PA + Lateral [Jan 30 2018 8:50AM] Assessment: Patient is a 37 years old female with ESRD 2/2 DM type 1 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 Patient was presented to the OSH on 01/27/2018 with fever, chills, and cough and admitted to ICU with HCAP, Acute respiratory failure requiring BiPAP, and NEL with Cr 3.9. Patient received Tacrolimus sublingual and IV steroids. MMF was held. Patient was transferred to [facility] for further management. Transplant nephrology consulted for NEL in DDKT and concern for rejection. 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 Patient's baseline is Cr ranges from 2-2.5 in the past year. Last Cr was 2.3 on 01/08/2018 at [facility]. Plan: -Order UA, Ur electrolytes, Ur TP/Cr ratio, Bladder scan, and US Renal Transplant. -Continue with Tacrolimus 1 mg BID and Prednisone 5 mg Daily. Holding Mycophenolate mofetil. -Monitor Tacrolimus level. Tacrolimus per level. Goal tacrolimus level around 5. -Start Sodium bicarbonate 1300 mg BID. -Check orthostatic vitals. If positive, give IVF bolus. -Encourage PO intake. -Antibiotics per primary team. -Renally dose medications. -Continue to monitor Strict I/O's, UOP, and daily weights closely. -Avoid nephrotoxic agents, hypotension, NSAIDs, and IV contrast when possible. Discussed with attending. Kyle Miranda Renal Fellow #[id number] Signature/Cosignature/Attestation: Attending AttestationI saw and evaluated the patient. I personally obtained the vitale and critical portions of the history and physical exam or was physically present for vitale and critical portions performed by the resident/fellow. I reviewed the resident/fellow?s documentation and discussed the patient with the resident/fellow. I agree with the resident/fellow?s medical decision making as documented in the resident/fellow?s note with the exception/addition of the following: I personally evaluated the patient (as noted in the above attestation) on 31-Jan-2018 Comments/ Additional Findings Pt seen with fellow Data reviewed Mother at bedside who gives history- pt not interactive due to acute vision loss from retinal detachment Awaiting surgery Baseline cr in 2 - 2.5 range per pt Cr improving today with IVF Suggest to continue home IS regimen MOst recent txpl doctor is Dr. Rahman at [facility] Will follow Electronic Signatures: Kyle Miranda (DO (Fellow)) (Signed 30-Jan-2018 19:48) Authored: Service, History of Present Illness, Review Family/Social History and ROS, Allergies, Objective, Assessment/Recommendations, Signature/Cosignature/Attestation Dorcas Acevedo) (Signed 31-Jan-2018 12:53) Authored: Service, Signature/Cosignature/Attestation Co-Signer: Service, History of Present Illness, Review Family/Social History and ROS, Objective, Assessment/Recommendations, Signature/Cosignature/Attestation Last Updated: 31-Jan-2018 12:53 by Dorcas Acevedo) GLUCOSE-POCT Collected: 01/30/2018 Status: F Source: [facility] 11:41 AM HOSPITALS REPOSITORY TYPE CODE TESTS RESULT OUT OF RANGE REFERENCE UNITS LAB GLUP(LOINC) 74 - 99 mg/dL High 268 GLUCOSE-POCT Performed By: #### GLUPO #### [facility] [id number] [place] [address] RENAL FUNCTION PANEL Collected: 01/30/2018 Status: CANCELLED Source: [facility] 11:13 AM [facility]OS[facility]ITALS REPOSITORY Order Comment: TEST RENAL FUNCTION PANEL WAS CANCELLED, 02/02/2018 00:08 NO SPECIMEN RECEIVED IN LAB. TYPE CODE TESTS RESULT OUT OF REFERENCE UNITS RANGE LAB GLU(LOINC) GLUCOSE Canceled LAB SOD(LOINC) SODIUM Canceled LAB K(LOINC) POTASSIUM Canceled LAB CHLOR(LOIN C) CHLORIDE Canceled LAB BIC(LOINC) BICARBONATE Canceled LAB ANGAP(LOIN C) ANION GAP Canceled LAB UREA(LOINC ) UREA NITROGEN Canceled LAB CREA(LOINC ) CREATININE Canceled LAB GFRFN(LOIN C) GFR-NON AM. Canceled LAB GFRAA(LOIN C) GFR- AM. Canceled Result Comment: CALCULATIONS OF ESTIMATED GFR ARE PERFORMED USING THE MDRD STUDY EQUATION FOR THE IDMS-TRACEABLE CREATININE METHODS. CLIN CHEM 2007;53:766-72 LAB CA(LOINC) CALCIUM Canceled LAB PHOS(LOINC) PHOSPHORUS Canceled Result Comment: The performance characteristics of phosphorus testing in heparinized plasma have been validated by the individual laboratory site where testing is performed. Testing on heparinized plasma is not approved by the FDA; however, such approval is not necessary. LAB ALB(LOINC) Canceled ALBUMIN Performed By: #### RENAL #### [facility] [address] [place] [address] CBC AND DIFFERENTIAL Collected: 01/30/2018 Status: CANCELLED Source: [facility] 11:13 AM [facility]OSPITALS REPOSITORY Order Comment: TEST CBC AND DIFFERENTIAL WAS CANCELLED, 02/02/2018 00:08 NO SPECIMEN RECEIVED IN LAB. TYPE CODE TESTS RESULT OUT OF REFERENCE UNITS RANGE LAB WBCR(LOINC ) WBC Canceled LAB NRBC(LOINC ) NUCLEATED RBC Canceled LAB RBCCT(LOIN C) RBC Canceled LAB HGB(LOINC) HGB Canceled LAB HCT(LOINC) HCT Canceled LAB MCV(LOINC) MCV Canceled LAB MCHC2(LOIN C) MCHC Canceled LAB PLTCT(LOIN C) PLT Canceled LAB RDWCV(LOIN C) RDW-CV Canceled LAB NEUT(LOINC ) % NEUTROPHIL Canceled LAB IG(LOINC) % AUTOMATED Canceled IMMATURE GRAN Result Comment: Percent differential counts (%) should be interpreted in the context of the absolute cell counts (cells/L). LAB LYMPH(LOINC) % LYMPHOCYTE Canceled LAB MONO(LOINC) % MONOCYTE Canceled LAB EOS(LOINC) % EOSINOPHIL Canceled LAB BASO(LOINC) % BASOPHIL Canceled LAB #NEUT(LOINC) NEUTROPHIL Canceled LAB #LYMP(LOINC) LYMPHOCYTE Canceled LAB #MONO(LOINC) MONOCYTE Canceled LAB #EOS(LOINC) EOSINOPHIL Canceled LAB #BASO(LOINC) BASOPHIL Canceled LAB MDIF(LOINC) DIFFERENTIAL Canceled Performed By: #### CBCDF #### [facility] [id number] [place] [address] GLUCOSE-POCT Collected: 01/30/2018 Status: F Source: [facility] 8:28 AM [facility]OSPITALS REPOSITORY TYPE CODE TESTS RESULT OUT OF RANGE REFERENCE UNITS LAB GLUP(LOINC) 74 - 99 mg/dL High 273 GLUCOSE-POCT Performed By: #### GLUPO #### [facility] [address] [place] [address] DAILY PROGRESS Observed: 01/30/2018 Status: COMPLETED Source: [facility] NOTE-INFECTIOUS DISEASE 7:49 AM HOSPITALS REPOSITORY Service: Infectious Disease Subjective Data: BERTRAM AMBROSE is a 37 year old Female who is Hospital Day # 2. Still complaining of shortness of breath, pleuritic chest pain, bilateral flank pain worse with cough. Had small bowel movement this morning. Denies headache, rash, numbness or tingling of extremities. Objective Data: Objective Information: T PRBPSpO2 [id number]/7592% Date/Time01/30 4: 4: 4: 4: 4:51 Range(36.5C - 37.4C ) (84 - 89 ) (18 - 18 ) (145 - 155 )/ (75 - 78 ) (92% - 100% ) Highest temp of 37.4 C was recorded at 01/30 4:51 Pain with Activity reported at 01/29 21:30: 4 Pain at Rest reported at 01/29 21:30: 4 T PRBPSpO2 [id number]/7592% Date/Time01/30 4: 4: 4: 4: 4:51 Range(36.5C - 37.4C ) (84 - 89 ) (18 - 18 ) (145 - 155 )/ (75 - 78 ) (92% - 100% ) Highest temp of 37.4 C was recorded at 01/30 4:51 Physical Exam: Constitutional: Looks well in bed not in pain or distress Eyes: Not pale or jaundiced Head/Neck: Supple, scar of prior tracheostomy Respiratory/Thorax: Vesicular breathing, crackles with no wheeze Cardiovascular: S1, S2 no murmur no added sounds Gastrointestinal: Abdominal tenderness all over Musculoskeletal: No swelling, erythema or induration Lymphatic: No significant lymphadenopathy Psychological: Appropriate mood and behavior Skin: excessive scarring over the left lower leg, abdominal wall Medication: Medications: Continuous Medications No continuous medications are active Scheduled Medications 1. Carvedilol: 25 mg Oral 2 Times a Day 2. Gabapentin: 300 mg Oral 2 Times a Day 3. Heparin SubCutaneous: 5000 unit(s) SubCutaneous Every 12 Hours 4. Insulin Detemir (Levemir) Injectable: 32 unit(s) SubCutaneous At Bedtime 5. Insulin Lispro Moderate Corrective Scale: unit(s) SubCutaneous 3 Times a Day Before Meals 6. levoFLOXacin 750 mg IVPB/ Premix 150 mL: 150 mL IntraVenous Piggyback Every 48 Hours 7. Mycophenolate Mofetil: 500 mg Oral Every 12 Hours 8. NIFEdipine Extended Release: 60 mg Oral Daily 9. Pravastatin: 40 mg Oral Daily 10. predniSONE: 5 mg Oral Daily 11. Tacrolimus: 1 mg Oral Every 12 Hours PRN Medications 1. Acetaminophen: 650 mg Oral Every 4 Hours 2. Dextrose 50% in Water Injectable: 25 gram(s) IntraVenous Push Every 15 Minutes 3. Docusate: 100 mg Oral 2 Times a Day 4. Glucagon Injectable: 1 mg IntraMuscular Every 15 Minutes 5. oxyCODONE Immediate Release: 5 mg Oral Every 4 Hours 6. Zolpidem: 10 mg Oral At Bedtime Assessment and Plan: Assessment: Patient is 37 years old female with Type I diabetes mellitus, renal transplantation with history of rejection on tacrolimus and mycophenolate mofetil, 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 Patient complaining of bilateral flank pain. CT abs/pelvis showed adnexal mass ovarian cyst vs. lymphocele with pedunculated uterine fibroids, but did not comment on tunica-biloxi kidneys. Concern for pyelonephritis of tunica-biloxi kidney vs. acute kidney rejection. 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 -Nephrology consult to evaluate for rejection -Continue Mycophenolate and tacrolimus and prednisone -Uploaded CT abd/pelvis into system. Will await formal read. -Minimize contrast exposure -Avoid nephrotoxic medications -Check urinalysis -Trend daily rfp #Abdominal cystic lesions, adnexal mass: -CT abs/pelvis showed adnexal mass ovarian cyst vs. 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 Elevated CA-125 non-specific in premenopausal woman. Await further recommendations when outside hospital imaging uploaded. -May need further by MRI evaluation of the adnexal cystic mass. #Type I diabetes mellitus, history of non-ketotic hyperglycemia: -Resume insulin Detemir and meal time sliding scale F: none E: replete as needed N: regular DVT prophylaxis Full Code Signature/Cosignature/Attestation: Attending AttestationI saw and evaluated the patient. I personally obtained the vitale and critical portions of the history and physical exam or was physically present for vitale and critical portions performed by the resident/fellow. I reviewed the resident/fellow?s documentation and discussed the patient with the resident/fellow. I agree with the resident/fellow?s medical decision making as documented in the resident?s note. I personally evaluated the patient (as noted in the above attestation) on 30-Jan-2018 Electronic Signatures: Josee Collins (Resident)) (Signed 30-Jan-2018 15:12) Authored: Service, Subjective Data, Objective Data, Assessment and Plan, Signature/Cosignature/Attestation Marleen Goldstein) (Signed 30-Jan-2018 17:23) Authored: Signature/Cosignature/Attestation Co-Signer: Service, Subjective Data, Objective Data, Assessment and Plan, Signature/Cosignature/Attestation Last Updated: 30-Jan-2018 17:23 by Marleen Goldstein) CREATINE KINASE Collected: 01/30/2018 Status: F Source: [facility] 6:24 [facility] REPOSITORY TYPE CODE TESTS RESULT OUT OF REFERENCE UNITS RANGE LAB CK(LOINC) 0 - 215 U/L CREATINE 51 KINASE Performed By: #### CK #### [facility] [id number] [place] [address] CANCER AG 125 Collected: 01/30/2018 Status: F Source: [facility] 6:24 [facility] REPOSITORY TYPE CODE TESTS RESULT OUT OF REFERENCE UNITS RANGE LAB CA125(LOINC 0.0 - 30.2 U/mL ) High CANCER AG 125 62.1 Result Comment: CA 125 testing is performed by chemiluminescent immunoassay using the Siemens Advia mon.kiaur. Values obtained with different analytic methods cannot be used interchangeably. . Serum CA 125 measurement is intended for use as an aid in monitoring patients previously treated for ovarian cancer. This assay is not intended for screening or diagnosis of cancer in the general population. The results must not be used as the sole means for clinical diagnosis or patient management decisions. Performed By: #### CA125 #### [facility] [address] [place] [address] CBC AND DIFFERENTIAL Collected: 01/30/2018 Status: F Source: [facility] 6:24 [facility] REPOSITORY TYPE CODE TESTS RESULT OUT OF REFERENCE UNITS RANGE LAB WBCR(LOINC 4.4 - 11.3 x10E9/L ) WBC 8.2 LAB NRBC(LOINC 0.0-0.0 /100 WBC ) NUCLEATED RBC 0.5 LAB RBCCT(LOIN 4.00 - 5.20 x10E12/L C) Low RBC 3.10 LAB HGB(LOINC) 12.0 - 16.0 g/dL Low HGB 8.7 LAB HCT(LOINC) 36.0 - 46.0 % Low HCT 25.6 LAB MCV(LOINC) 80 - 100 fL MCV 83 LAB MCHC2(LOIN 32.0 - 36.0 g/dL C) MCHC 34.0 LAB PLTCT(LOIN 150 - 450 x10E9/L C) PLT 271 LAB RDWCV(LOIN 11.5 - 14.5 % C) RDW-CV High 15.5 LAB NEUT(LOINC 40.0 - 80.0 % ) % NEUTROPHIL 90.2 LAB IG(LOINC) 0.0 - 0.9 % % AUTOMATED 0.5 IMMATURE GRAN Result Comment: Percent differential counts (%) should be interpreted in the context of the absolute cell counts (cells/L). LAB LYMPH(LOINC) 13.0 - 44.0 % % LYMPHOCYTE 4.3 LAB MONO(LOINC) 2.0 - 10.0 % % MONOCYTE 4.8 LAB EOS(LOINC) 0.0 - 6.0 % % EOSINOPHIL 0.1 LAB BASO(LOINC) 0.0 - 2.0 % % BASOPHIL 0.1 LAB #NEUT(LOINC) 1.20 - 7.70 x10E9/L NEUTROPHIL 7.38 LAB #LYMP(LOINC) 1.20 - 4.80 x10E9/L LYMPHOCYTE Low 0.35 LAB #MONO(LOINC) 0.10 - 1.00 x10E9/L MONOCYTE 0.39 LAB #EOS(LOINC) 0.00 - 0.70 x10E9/L EOSINOPHIL 0.01 LAB #BASO(LOINC) 0.00 - 0.10 x10E9/L BASOPHIL 0.01 Performed By: #### CBCDF #### [facility] [id number] [place] [address] RENAL FUNCTION PANEL Collected: 01/30/2018 Status: F Source: [facility] 6:24 AM HOSPITALS REPOSITORY TYPE CODE TESTS RESULT OUT OF RANGE REFERENCE UNITS LAB GLU(LOINC) 74 - 99 mg/dL High GLUCOSE 296 LAB SOD(LOINC) 136 - 145 mmol/L SODIUM 139 LAB K(LOINC) 3.5 - 5.3 mmol/L POTASSIUM 4.1 LAB CHLOR(LOIN 98 - 107 mmol/L C) High CHLORIDE 111 LAB BIC(LOINC) 21 - 32 mmol/L Low BICARBONATE 15 LAB ANGAP(LOIN 10 - 20 mmol/L C) ANION GAP 17 LAB UREA(LOINC 6 - 23 mg/dL ) High UREA NITROGEN 37 LAB CREA(LOINC 0.50 - 1.05 mg/dL ) High CREATININE 3.28 LAB GFRFN(LOIN >60 mL/min/1.7 C) 3m2 GFR-NON Abnormal AM. 16 LAB GFRAA(LOIN >60 mL/min/1.7 C) 3m2 GFR- Abnormal AM. 19 Result Comment: CALCULATIONS OF ESTIMATED GFR ARE PERFORMED USING THE MDRD STUDY EQUATION FOR THE IDMS-TRACEABLE CREATININE METHODS. CLIN CHEM 2007;53:766-72 LAB CA(LOINC) 8.6 - 10.6 mg/dL CALCIUM Low 7.8 LAB PHOS(LOINC) 2.5 - 4.9 mg/dL PHOSPHORUS 3.0 Result Comment: The performance characteristics of phosphorus testing in heparinized plasma have been validated by the individual laboratory site where testing is performed. Testing on heparinized plasma is not approved by the FDA; however, such approval is not necessary. LAB ALB(LOINC) 3.4 - 5.0 g/dL Low ALBUMIN 2.4 Performed By: #### RENAL #### [facility] [id number] [place] [address] HEMOGLOBIN A1C Collected: 01/30/2018 Status: F Source: [facility] 6:24 AM HOSPITALS REPOSITORY TYPE CODE TESTS RESULT OUT OF RANGE REFERENCE UNITS LAB HBA1C(LOINC % ) HGB A1C 11.6 Result Comment: Diagnosis of Diabetes-Adults Non-Diabetic: < or = 5.6% Increased risk for developing diabetes: 5.7-6.4% Diagnostic of diabetes: > or = 6.5% . Monitoring of Diabetes Age (y) Therapeutic Goal (%) Adults: >18 <7.0 Pediatrics: 13-18 <7.5 7-12 <8.0 0- 6 7.5-8.5 [place] [employer]. Diabetes Care 33(S1), Jun 2009. Hemoglobin variant detected which does not interfere with determination of Hemoglobin A1c. Hemoglobin identification can be ordered to characterize the variant if clinically indicated. LAB ESAVG(LOINC) MG/DL EST.AVG.GLUCOSE 286 Performed By: #### HBA1E #### [facility] [id number] [place] [address] TH CHEST 2 VIEW PA Observed: 01/30/2018 Status: F Source: [facility] 12:38 AM HOSPITALS REPOSITORY Patient Name: BERTRAM AMBROSE STUDY: TH CHEST 2 VIEW PA AND LAT; 01/30/2018 12:38 am INDICATION: Signs/Symptoms: Legionella p. COMPARISON: 12/07/2015 ACCESSION NUMBER(S): [id number] ORDERING CLINICIAN: KATTY AUGUST FINDINGS: The cardiac silhouette size is within normal limits. There is patchy airspace opacity and areas of consolidation in bilateral lungs. There is no sizable pleural effusion, edema or pneumothorax. No acute osseous abnormality. IMPRESSION: Patchy airspace opacity and consolidation in bilateral lungs, concerning for multifocal pneumonia. Follow-up chest radiograph to resolution is recommended. Electronically signed by: BRYSON YOUNG MD DISCHARGE PLANNING Observed: 01/29/2018 Status: UNK Source: UNIVERSITY NOTE 11:26 PM HOSPITALS REPOSITORY Patient Learning: ? Factors that Impact Ability to Learnnone(1) Other Factors: ? Functional Screen: In the recent/past 2-4 weeks, patient or family have noticedno issues that require a rehabilitation consult at this time(2) Discharge Planning: Discharge Plannin01/29/18 Admission Note [address] 8 Patient arrived via ambulance with her abran Loving. Patient states they live in a single home she states she used to have home health aides come to home but no longer felt she needed it, she does however use a cane and wheel chair at home. Discharge plans are unknown at this time. Patient requesting a transfer to another floor........................................................................... 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 All questions answered. IV removed cath intact. Pt had all belongings. Transport called to take patient to awaiting family downstairs. Ced Rodrigues RN Final Disposition/Discharge: Disposition/Discharge Information: Discharge/Transfer Information: ? Discharge/Transfer Date/[id number] 15:40 ? Discharged Accompanied Bysignificant other/partner ? Discharge Modewheelchair ? Transportation Methodprivate car ? Valuables/Medications/Belongings Returnedyes ? Final DispositionHome Electronic Signatures: Ced Rodrigues (RN) (Signed 06-Feb-2018 17:01) Authored: Discharge Planning Note, Final Disposition/Discharge Gema Arellano (RN) (Signed 29-Jan-2018 23:31) Authored: Discharge Planning Note Last Updated: 06-Feb-2018 17:01 by Ced Rodrigues (RN) References: 1. Data Referenced From 5. Education 01/29/2018 11:09 PM 2. Data Referenced From Admission Risk Screen - Adult 01/29/2018 11:09 PM PATIENT PROFILE - Observed: 01/29/2018 Status: UNK Source: UNIVERSITY ADULT V2 11:17 PM HOSPITALS REPOSITORY Profile: Initial Info: How to be AddressedDANA Spoken Language PreferredEnglish Are you currently using the Personal Electronic Health Record or [facility] Are you interested in learning more about [facility] for the management of your healthnot at this time Stated Reason for AdmissionPNA, Sepsis Arrived Fromemergency department Patient Belongingsremains with patient Patient Belongings Remaining with Patientcell phone/electronics; jewelry; vision aids; purse/wallet; clothing; medical/assistive equipment Medications Brought to Hospitalyes Medication Dispositionsent home with family General Health: Weight in kg72.5 kilogram(s) Weight in afb791 pound(s) Height in feet5 feet Height in inches6 inch(es) Height in cm167.6 centimeter(s) BMI (kg/m2)25.81 square meter Weight Methodactual (measured) Scale Typestanding Height Methodstated RSP Based Care: How would you like to participate in your care?tell her everything we do What is the number one concern for you during this hospitalization?PNA What is the most important thing we can do to support you during this hospitalization?get her on another floor Is there anything we need to know to best care for you?fiancee stays at bedside Substance: Current or Former Substance Use never: Cigarette/Tobacco, e-Cigarette/Vaping, Alcohol, Street Drugs Health Mgmt: Symptoms/Conditions Managed at [facility] Are You Currently Breastfeedingno Are You no Relationship/Environ: Primary Source of Support/Comfortsignificant other Lives Withsignificant other Living Arrangementshouse Resource/Environmental Concernsnone [facility] Anticipated at Transitionnone Significant IndicatorsComplete Information Review: ? Allergies, Home Meds and Significant Events have been Reviewed and Verified with Patient/Familyyes ALLERGY, INTOLERANCE, ADVERSE EVENT: Allergies: ? Lasix: Drug, Swelling/Edema, Active Electronic Signatures: Gema Arellano (TERRI) (Signed 29-Jan-2018 23:26) Authored: Profile, Additional Information Last Updated: 29-Jan-2018 23:26 by Gema Arellano (TERRI) ADMISSION RISK SCREEN Observed: 01/29/2018 Status: UNK Source: UNIVERSITY - ADULT 11:09 PM HOSPITALS REPOSITORY Allergies: Allergies: ? Lasix: Swelling/Edema Patient Verification: ? New W ID Band Applied in my Departmentyes ? Patient Identity Verified Bypatient ? ID Band FULL Name, include Middle, spelling matches patient's ID used for verificationyes ? ID Band Matches Patient ID used for Verficationyes ? ID Band MRN Matches EMR MRNyes Advance Directive: ? Advance Directive Medicalno ? Advance Directive Information Givenpatient/family declined Falls Screen: Type of Assessmentadmission Risk for Injury Associated with Fallnone Fall Risk Conclusionmoderate falls risk with low risk for associated injury [place] Safety InterventionsWDL *orient to call system *instruct to call for assistance before getting out of bed *non-slip footwear when patient is out of bed *call restrepo in reach *personal items and telephone in reach *physically safe environment (no spills or clutter) *bed in lowest position with wheels locked *appropriate side rails in place *room/bathroom lighting operational, light cord in reach *appropriate signage on door Fall and Injury Risk Interventionssupervised toileting (mandatory for all high risk patients), exit (bed/chair) alarms (mandatory for all high risk patients) Family Violence Screen: ? Are you or have you been threatened or abused physically, emotionally, or sexually by anyone?no ? Do you feel UNSAFE going back to the place where you are living?no ? Clinical assessment: Are there any apparent signs of injuries/behaviors that could be related to abuse/neglectno ? Social Service Consult for abuse/neglect needed this visit?no Functional screen: ? Functional Screen: In the recent/past 2-4 weeks, patient or family have noticedno issues that require a rehabilitation consult at this time Learning Assessment (Patient): ? Patient is Able to be Assessed for Learningyes ? Factors Influencing Readiness to Learnacuteness of illness ? Factors that Impact Ability to Learnnone ? Devices/Methods Used to Communicateglasses ? Learning Preferencesverbal instruction ? Cultural Considerationsnone ? Developmental Considerationsnone ? Islam Considerationsnone Learning Assessment (Other Learner): ? Other learner availableno Suicide/Depression Screen: ? During the past month, have you often been bothered by feeling down, depressed or hopeless?yes ? During the past month, have you often had little interest or pleasure in doing things?yes ? Have you had any thoughts of harming yourself?no ? Have you had any thoughts of harming anyone else?no Adult Nutrition Screen: ? Have you recently lost weight without tryingyes; 2-13 lb ? Have you been eating poorly because of a decreased appetiteyes ? MST Score2 ? RiskMST = 2 or more At Risk. Eating poorly and/or recent weight loss ? Nutrition Consult needed this visit?no ? Can Patient Participate in Room Service?yes ? Patient requires Paper Dishes/Plastic Utensilsno Pain Screen: ? Pain Scalenumerical 0-10 ? Pain Scale Educationteaching provided ? Current Pain Level10 = Severe ? Acceptable Pain Level5 = Moderate ? Expression of Pain (nonverbal)verbalization ? Chronic Painno Spiritual Screen: ? Are there any cultural, spiritual, hindu practices/values/needs that are important for us to know?no CAGE: Is this an injured [place] [place] [facility] no Vaccinations: Vaccination - Influenza Vaccination Screen: ? Is it flu season? (between and )No Vaccination - Pneumonia Vaccination Screen: ? Patient has received a previous pneumonia vaccine:no/unknown... ? Immunocompetent persons with underlying chronic conditions or reside in penitentiary care facilitiesnone of these conditions ? Persons with Functional or Anatomic Asplenianone of these conditions ? Immunocompromised Personsnone of these conditions ? Pneumonia vaccine NOT indicated due to:patient DOES NOT have a condition that indicates vaccination [place]: Skin - Kenton Scale: ? [place]: Sensory Perception (response to environment)(4) no impairment ? [place]: Moisture (degree skin exposed to moisture)(4) rarely moist ? [place]: Activity (ability to walk)(3) walks occasionally ? [place]: Mobility (amount/control of body movement)(3) slightly limited ? [place]: Nutrition (quality of food intake)(2) probably inadequate ? [place]: Friction and Shear(3) no apparent problem ? [place]: Score19 Significant Indicatiors: Significant Indicators: Complete Pressure Injury: Pressure Injury Present on Admissionno Electronic Signatures: Gema Arellano (RN) (Signed 29-Jan-2018 23:17) Authored: Admission Risk Screens, Vaccinations, [place], Pressure Injury Last Updated: 29-Jan-2018 23:17 by Gema Arellano (RN) HISTORY AND PHYSICAL Observed: 01/29/2018 Status: COMPLETED Source: [place] 10:06 PM HOSPITALS REPOSITORY History of Present Illness: /Lactating: ? Are You no ? 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 Renal transplant in [facility], donor kidney, 2011, thought to be due to diabetes mellitus. Moved to [place] last month and has not established care with managing jeweler yet. Baseline creatinine is 1.3, her rejection history was around 2 years ago, recovered following adjustment of immunosuppressive therapy. Has been compliant to medications since then, taking combination prednisone, tacrolimus and mycophenolate. Admitted and discharged from the OSH January 21 with nonketotic hyperglycemia. Soon following discharge she developed symptoms, started with prodromal of 1-2 days of mild headache and myalgias, followed by high fever, and chills. Later developed cough productive. Other pulmonary manifestations include dyspnea, pleuritic chest pain, with no hemoptysis, gastrointestinal symptoms include nausea, vomiting, abdominal pain, and anorexia, no diarrhea. Prior to presentation to the hospital she was lethargic, encephalopathic with altered mental status. She has no new exposure to unusual inhalation of mist from water sources, no exposure to cooling systems, Showers, Humidifiers for tubs. Admitted The January 27 to the hospital with cough, fever and chills, and acute kidney injury (serum creatinine 3.9. Chest radiograph showed bilateral infiltrates). Was hypoxic during upon admission SPO2 80% febrile but normotensive, had right CVA tenderness. Her labs were notable for BUN 40, K 5.7, lactic acidosis 2.8, white blood cells 9.3, Hb 10.1, platelets 163, INR 1.1, normal AST and ALT, troponin negative. Started initially on Azithromycin, Piperacillin/Tazobactam and vancomycin. Admitted to the intensive care unit, maintained on non-invasive positive pressure ventilation (BiPAP). Day following admission, legionella urine antigen testing came back positive. Antibiotics transitioned to Cefepime plus levofloxacin. Seen by nephrology, was initially unable to take orally, tacrolimus was switch to sublingual and the mycophenolate was held, also transitioned to IV steroids. The , she made some recovery, transitioned to nasal cannula. Transferred to nursing floor. Had CT radiograph to abdomen 01/21: showing cystic structure 8*5.9*4.9 cm at the right adnexal area, later dedicated radiographic ultrasound showed 7.9 cm fluid filled cystic structure in the right agustín-pelvis few cm away from the transplanted kidney, ovarian cyst vs lymphocele with pedunculated uterine fibroids. Off note, patient has history of snake bite in 2011, brown recluse spider to the left leg, developed necrotizing fascitis, sever infection required intensive care admission, extensive debridement, intubation with tracheostomy. History of admission to the hospital with non-ketotic hyperglycemic state as above. Microbiology: 01/29/2018 Sputum culture (normal won), gram staining GPC, GP rods 01/27/2018 Blood culture no growth to date X2 01/28/2018 Sputum culture normal won 01/27/2018 Urine culture no growth 01/27/2018 Urine antigen test positive for legionella, streptococcal pneumoniae negative Antimicrobial therapy Piperacillin/Tazobactam 3.375 gm IV (Started 01/27-01/28) Azithromycin 500 mg iv (Started 01/27-01/28) Vancomycin 1 gm IV (Started 01/27-01/29) Levofloxacin IV (Started 01/28/2018) Cefepime 2 gm IV (Started 01/28/2018) Past medical history: Diabetes mellitus type I, hypertension Surgical history: Renal transplantation, Appendectomy, poor wound healing, diverting sigmoid colostomy followed by reversal Jul 2017, tracheostomy and left TMA Social history: discontinued smoking 2 years ago, denied alcohol or illicit drugs Drug history: Medications prior to transfer Carvedilol 25 mg po BID Diphenhydramine 25 mg po once daily Famotidine 20 mg po BID Fluticasone 0.05% nasal spray Gabapentin 300 mg po Q12 hours Mycophenolate mofetil 500 mg po BID Nifedipine 60 mg po BID Oxycodone 5 mg po BID Pravastatin 40 mg po Qhs Prednisolone 5 mg po once daily Tacrolimus 1 mg po BID Zolpidem 10 mg po Qhs Cyclobenzaprine 10 mg po TID PRN Insulin Detemir 32 unit daily Insulin Aspart 6 unit TID with meals Levofloxacin r Comorbidities: ? Comorbid Conditionschronic kidney disease, diabetes ? Chronic Kidney Diseasediabetic S/P kidney transplant ? CKD StageStage 4 ? Diabtetes TypeType 1 ? Insulin Dependentyes ? DM Acuity or Statusout of control ? DM Complicationsnephropathy neuropathy cataract Objective: Objective Information: T PRBPSpO2 [id number]/47875% Date/Time01/29 21: 21: 21: 21: 21:30 Range(36.5C - 36.5C ) (89 - 89 ) (18 - 18 ) (145 - 145 )/ (78 - 78 ) (100% - 100% ) Physical Exam: Constitutional: Looks well in bed not in pain or distress Eyes: Not pale or jaundiced Head/Neck: Supple, scar of prior tracheostomy Respiratory/Thorax: Vesicular breathing, crackles with no wheeze Cardiovascular: S1, S2 no murmur no added sounds Gastrointestinal: Abdominal tenderness all over Musculoskeletal: No swelling, erythema or induration Lymphatic: No significant lymphadenopathy Psychological: Appropriate mood and behavior Skin: excessive scarring over the left lower leg, abdominal wall Assessment and Plan: Assessment: Patient is 37 years old female with Type I diabetes mellitus, renal transplantation with history of rejection on tacrolimus and mycophenolate mofetil, transferred from [facility] with legionnaires disease. 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 #Renal transplant with history of rejection, on tacrolimus and mycophenolate mofetil and prednisone #Type I diabetes mellitus, history of non-ketotic hyperglycemia #Acute kidney injury in setting of infection, slowly recovering #History of necrotizing fascitis with extensive left lower leg debridement #Abdominal cystic lesions, adnexal juxta-transplanted kidney cystic lesion Plan: Admit Nephrology consult to evaluate for rejection Continue levofloxacin monotherapy, renally dose 750 Q48 hours No need for isolation precautions, person to person transmission does not occur Resume insulin Detemir and meal time sliding scale Continue Mycophenolate and tacrolimus and prednisone Minimize contrast exposure Avoid nephrotoxic medications Encouraged to continue smoking cessation, weight loss if applicable and limit alcohol intake May need further by MRI evaluation of the adnexal juxta-transplanted kidney cyst, ordered Cancer Antigen 125 CXR, CBC and Sputum culture for legionella BCYE media Patient would like to continue follow up with her managing jeweler at [place] DVT prophylaxis Diet, diabetic Code status Signatures/Attestation/Certification: Attending AttestationI saw and evaluated the patient. I personally obtained the vitale and critical portions of the history and physical exam or was physically present for vitale and critical portions performed by the resident/fellow. I reviewed the resident/fellow?s documentation and discussed the patient with the resident/fellow. I agree with the resident/fellow?s medical decision making as documented in the resident/fellow?s note with the exception/addition of the following: I personally evaluated the patient (as noted in the above attestation) on 30-Jan-2018 Comments/ Additional Findings FH: not pertinent to presenting problem SH: no ETOH, Tobacco 14 point ROS negative unless stated in HPI Attending Provider ? Inpatient Certification StatementI certify this patient?s need for inpatient care based on the above documentation including; the order to admit as inpatient, the anticipated length of stay, diagnosis, problem list and plan of care, and discharge plan. Electronic Signatures: Katty Wilhelm (Resident)) (Signed 29-Jan-2018 23:51) Authored: History of Present Illness, Objective, Assessment and Plan Marleen Goldstein) (Signed 02-Feb-2018 12:29) Authored: History of Present Illness, Comorbidities, Signatures/Attestation/Certification Last Updated: 02-Feb-2018 12:29 by Marleen Goldstein) BEDSIDE GLUCOSE Collected: 01/29/2018 Status: F Source: [place] 4:28 PM [facility] REPOSITORY TYPE CODE TESTS RESULT OUT OF REFERENCE UNITS RANGE LAB L501.080 70-110 mg/dL High BEDSIDE GLU 305 Result Comment: MANAGEMENT OF PATIENT CARE PER NURSING PROTOCOL Performed By: #### L501.080 #### [facility] Point of Care [address] [address] DISCHARGE SUMMARY Observed: 01/29/2018 Status: F Source: [place] 4:22 PM [facility] REPOSITORY [facility] Medical Records Department [address] [place] [address] Discharge Summary 01/29/18 1417 MR#: [id number] Acct: [id number] Name: BERTRAM AMBROSE Rep #: [id number] : 1980 37 From: Julio Jackson MD PCP: Aster Martin MD Status: ADM IN Location: [place] [address] Discharge Date and Diagnosis - Problem List Patient Problems: Active and Suspected Problems Severe sepsis (Acute) HCAP (healthcare-associated pneumonia) (Acute) Legionella pneumonia (Acute) Acute respiratory failure with hypoxia (Acute) NEL (acute kidney injury) (Acute) Date of Admission: 01/27/18 Date of Discharge: 01/29/18 - Primary Discharge Diagnosis Active and Suspected Problems Severe sepsis (Acute) HCAP (healthcare-associated pneumonia) (Acute) Legionella pneumonia (Acute) Acute respiratory failure with hypoxia (Acute) NEL (acute kidney injury) (Acute) - Secondary Discharge Diagnosis Chronic Problems Hyperglycemia due to type 1 diabetes mellitus (Chronic) Hyperglycemia without ketosis (Chronic) DM type 1 (diabetes mellitus, type 1) (Chronic) 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 01/27/18 14:40 Blood Culture (Wb) - Right Hand Blood Culture - Preliminary No growth in 48 hours. 01/28/18 14:00 Sputum, Expectorated/Coughed Gram Stain - Final 01/28/18 14:00 Sputum, Expectorated/Coughed Respiratory Culture - Preliminary Appears to be normal respiratory won. Further studies to follow. 01/27/18 15:35 Urine, Clean Catch Urine Culture - Final Culture exhibits no growth. 01/27/18 15:35 Urine, Clean Catch Legionella Antigen - Final Legionella Antigen 01/27/18 15:35 Urine, Clean Catch Streptococcus pneumoniae Antigen (M - Final Clinical Impression(s) from Imaging Studies Chest X-Ray 01/27/18 14:13 IMPRESSION: Bilateral pulmonary infiltrates. Electronically Signed: Roger Griffith MD at 15:08 EDT Tel [phone], Service support , Pelvis Ultrasound 01/28/18 11:21 IMPRESSION: 1. 7.9 cm fluid-filled cystic structure in the right hemipelvis inseparable from the right ovary and correlating to the area of question on earlier CT. This is a few centimeters away from the transplant kidney itself, but differential would still include both right ovarian cyst as well as lymphocele. 2. Two pedunculated fibroids emanating from the fundus of the uterus, as described. 3. Normal endometrial thickness. 4. Normal left ovary. Electronically Signed: Britton Brown MD at 13:50 EDT , Service support , Summary of Care Provided: Patient is a 37-year-old lady with history of diabetes mellitus type 1, history of kidney transplant with subsequent rejection presented with progressive shortness of breath imaging studies demonstrated features consistent with pneumonia admitted to the intensive care unit for subsequent management. Patient diagnostic workup consistent with Legionella pneumonia for which patient was managed with cefepime and Levaquin in view of patient kidney function not improving despite aggressive IV fluid resuscitation Dr. Cam with nephrology did recommend and I arranged for patient to be transferred to [facility] to be evaluated by transplant medicine team 1. Severe sepsis secondary to healthcare acquired pneumonia with Legionella: Patient has been admitted to intensive care unit managed per protocol with receive IV fluids, broad-spectrum antibiotic therapy initially with Zosyn, ciprofloxacin as well as vancomycin; therapy switch to cefepime and Levaquin following her urine antigen positive for Legionella. A consultation was also placed to Dr. Dalton with infectious disease: His notes and recommendations reviewed 2. Acute hypoxic respiratory failure secondary to healthcare acquired pneumonia Legionella; management as discussed above patient in addition was managed briefly on BiPAP 3. Diabetes mellitus type 1 since age 10 did continue with patient home regimen 4. Diabetic nephropathy with previous kidney transplant patient apparently had rejection and was treated with immunotherapy auscultation was placed to Dr. Cam he was notified by the ED prior to patient's admission 5. Acute on chronic kidney disease on IV fluids with monitoring of electrolyte; Consultation was placed to Dr. Cam: Subsequent management deferred 6. Diabetic retinopathy 7. Chronic kidney disease stage III with previous kidney transplant. Patient currently on Prograf as well as CellCept. Consultation was placed to Dr. Cam 8. Hypertension did continue with home meds 9. Right Lower quadrant abdominal pain patient imaging studies with CT obtained on 01/21/2018 demonstrated the presence of a centimeter by 5.9 cm x 5 4.8 cyst in the right adnexa area. Ultrasound ordered for subsequent evaluation and ultrasound demonstrated questionable ovarian cyst 11. DVT prophylaxis SC heparin Discharge Diet: 1800 Calorie Control Diet, Renal Diet Discharge Activity: Return to Normal Activity Home Medications: Medications to take at Discharge Carvedilol [Coreg] 25 mg PO BID 01/20/18 Diphenhydramine HCl [Benadryl Allergy] 25 mg PO QODAY 01/20/18 Famotidine [Pepcid] 20 mg PO BID 01/20/18 Fluticasone 0.05% [Flonase Nasal [place]] 2 spray NASAL TID PRN PRN 01/20/18 Gabapentin [Neurontin] 300 mg PO Q12H 01/20/18 Mycophenolate Mofetil 500 mg PO BID 01/20/18 Nifedipine [Nifedipine ER] 60 mg PO BID 01/20/18 Oxycodone HCl [Roxicodone] 5 mg PO BID 01/20/18 Pravastatin [Pravachol] 40 mg PO QHS 01/20/18 Prednisone 5 mg PO DAILY 01/20/18 Tacrolimus Anhydrous [Prograf] 1 mg PO BID 01/20/18 Cyclobenzaprine [Flexeril] 10 mg PO TID PRN #10 tab 01/22/18 Insulin Detemir [Levemir] 32 unit SQ DAILY #1 vial 01/22/18 Insulin Aspart [Novolog Flexpen] 6 units SC TIDCM 01/27/18 levoFLOXacin IV [Levaquin 500mg IVPB] 500 mg IV Q48 bag 01/29/18 Primary Care Physician: Aster Martin MD [Primary Care Provider] - Disposition: [facility] Minutes spent on discharge:: 45 Patient Condition:: Stable Medical Necessity - Tobacco Use Smoking Status: Former smoker Tobacco Use: Cigarettes Meaningful Use Info Meaningful Use Diagnoses (Choose all that apply): None applicable Code Visit Inpatient E AND M: [id number] Disch Hosp 01/29/18 1622 <Electronically signed by Julio Jackson MD> Date Julio Jackson MD Cosigner Signature (if applicable): Date CC: Julio Jackson MD; Aster Martin MD Signed DISCHARGE INSTRUCTION Observed: 01/29/2018 Status: F Source: [place] 2:17 PM [facility] REPOSITORY [facility] Medical Records Department [address] [place] [address] Instructions for Home/Discharge Instructions 01/29/18 1414 MR#: [id number] Acct: [id number] Name: BERTRAM AMBROSE Rep #: [id number] : 1980 37 From: Julio Jackson MD PCP: Aster Martin MD Status: ADM IN - Discharge Diagnoses Current Active Problems: Current Active and Chronic Problems Severe sepsis (Acute) HCAP (healthcare-associated pneumonia) (Acute) Legionella pneumonia (Acute) Acute respiratory failure with hypoxia (Acute) NEL (acute kidney injury) (Acute) You will use the following diet at home:: Calorie/Carbohydrate Controlled (specify 1200, 1400, etc) - 1800 Allergies/Adverse Reactions: Allergies furosemide [From Lasix] Allergy (Verified 01/20/18 14:16) Hives Medications to take at Discharge Carvedilol [Coreg] 25 mg PO BID 01/20/18 Diphenhydramine HCl [Benadryl Allergy] 25 mg PO QODAY 01/20/18 Famotidine [Pepcid] 20 mg PO BID 01/20/18 Fluticasone 0.05% [Flonase Nasal [place]] 2 spray NASAL TID PRN PRN 01/20/18 Gabapentin [Neurontin] 300 mg PO Q12H 01/20/18 Mycophenolate Mofetil 500 mg PO BID 01/20/18 Nifedipine [Nifedipine ER] 60 mg PO BID 01/20/18 Oxycodone HCl [Roxicodone] 5 mg PO BID 01/20/18 Pravastatin [Pravachol] 40 mg PO QHS 01/20/18 Prednisone 5 mg PO DAILY 01/20/18 Tacrolimus Anhydrous [Prograf] 1 mg PO BID 01/20/18 Cyclobenzaprine [Flexeril] 10 mg PO TID PRN #10 tab 01/22/18 Insulin Detemir [Levemir] 32 unit SQ DAILY #1 vial 01/22/18 Insulin Aspart [Novolog Flexpen] 6 units SC TIDCM 01/27/18 levoFLOXacin IV [Levaquin 500mg IVPB] 500 mg IV Q48 bag 01/29/18 Primary Care Physician: Aster Martin MD [Primary Care Provider] - Test Results: Test results from this visit will be discussed in further detail at your follow-up appointment, if applicable. Proposed Discharge Date: 01/29/18 01/29/18 1417 <Electronically signed by Julio Jackson MD> Date Julio Jackson MD CC: Jonny Calles MD; Aster Martin MD; Jourdan Cam M.D.; Stan Aden MD 12 LEAD ELECTROCARDIOGRAM Observed: 01/29/2018 Status: F Source: [place] 1:34 PM [facility] REPOSITORY [facility] Cardiovascular Services [address] [place] [address] 12 Lead EKG 01/27/18 1455 MR#: [id number] Acct: [id number] Name: BERTRAM AMBROSE Rep #: [id number] : 1980 37 From: Garcia Almaguer MD Attending Dr: Julio Jackson MD Status: ADM IN Ordering Dr: Dwight Elam DO Date: 01/27/18 Location: NC3 Sex: F AA Admitted: 01/27/18 Test Reason : FEVER Blood Pressure : / mmHG Vent. Rate : 092 BPM Atrial Rate : 092 BPM P-R Int : 128 ms QRS Dur : 068 ms QT Int : 354 ms P-R-T Axes : 018 058 092 degrees QTc Int : 437 ms Normal sinus rhythm Septal infarct , age undetermined T wave abnormality, consider lateral ischemia Abnormal ECG Confirmed by DONAVON GROSSMAN, GARCIA ([id number]), technical writer and editor ASIM BENITEZ ([id number]) on 01/29/2018 1:34:24 PM Referred By: GÉNESIS Confirmed By:GARCIA ALMAGUER MD 01/29/18 1334 Date Garcia Almaguer MD CC: Dwight Elam DO; Julio Jackson MD; Aster Martin MD Signed BEDSIDE GLUCOSE Collected: 01/29/2018 Status: F Source: [place] 12:16 PM [facility] REPOSITORY TYPE CODE TESTS RESULT OUT OF REFERENCE UNITS RANGE LAB L501.080 70-110 mg/dL High BEDSIDE GLU 291 Result Comment: MANAGEMENT OF PATIENT CARE PER NURSING PROTOCOL Performed By: #### L501.080 #### [facility] Point of Care [address] [facility] [place] [address] CONSULTATION Observed: 01/29/2018 Status: F Source: [place] 5:37 AM [facility] REPOSITORY [facility] Medical Records Department [address] [place] [address] Consultation 01/28/18 0747 MR#: [id number] Acct: [id number] Name: BERTRAM AMBROSE Rep #: [id number] : 1980 37 From: Jonny Calles MD PCP: Aster Martin MD Status: ADM IN Y Location: ICU ICU01-1 Problem List (1) Legionella pneumonia Status: Acute (2) Hyperglycemia due to type 1 diabetes mellitus Status: Chronic (3) Hyperglycemia without ketosis Status: Chronic (4) DM type 1 (diabetes mellitus, type 1) Status: Chronic Qualifiers: Diabetes mellitus complication status: with neurologic complications Diabetes mellitus complication detail: with unspecified neuropathy Qualified Code(s): E10.40 - Type 1 diabetes mellitus with diabetic neuropathy, unspecified (5) CKD stage 3 due to type 1 diabetes mellitus Status: Chronic (6) Severe sepsis Status: Acute (7) Acute respiratory failure with hypoxia Status: Acute Reason for Consult Date of Consultation: 01/28/18 Reason for Consultation: Respiratory failure History of Present Illness: The patient is a 37 year old F, with past medical history listed below, who presented to [facility] on 01/27/2018 who presented with a one-day history of coughing, chills and weakness. EMS was reportedly called to her residence and found patient to be hypoglycemic. Patient was given glucose without improvement. Initial pulse ox was noted to be 80% on room air. Patient had significant pain in the right CVA region. On presentation to the ER, patient was noted to be febrile at 102.6 F, tachypneic with an adequate blood pressure. Patient did receive IV fluids and Tylenol. Patient was admitted to the intensive care unit on BiPAP therapy. Since arrival, patient has been relatively dependent on BiPAP therapy secondary to hypoxemia. Patient continues to have right-sided flank pain. Legionella antigen has come back positive. Patient's blood pressure has remained adequate at this time. Morning labs show slight improvement in creatinine. Patient is not able to provide much more additional information at this time. Patient reportedly had a renal transplant at [facility] in [place] approximately 3 years ago. Patient recently moved to this area, but has not been established with a managing jeweler. Patient was recently admitted for [facility] and at that time had a creatinine of 1.9. Patient believes her previous creatinine was 1.3 or 1.7. Patient reports she has been compliant with immunosuppressive therapy. 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) Allergies furosemide [From Lasix] Allergy (Verified 01/20/18 14:16) Hives Home Medications: Ambulatory Orders Medication Instructions Recorded Carvedilol [Coreg] 25 mg PO BID 01/20/18 Surgical History: appendectomy, - - Status post kidney transplant, poor wound debridement, diverting sigmoid colostomy on 07/06/2017, reversed on 07/07/2017, percutaneous tracheostomy, no longer has, left TMA Psychiatric History: No pertinent psych hx RATER ASSOCIATE History: No pertinent RATER ASSOCIATE history Smoking Status: Former smoker Tobacco Use: Cigarettes - *Family History Maternal History Items: Diabetes, Hypertension Paternal History Items: No pertinent history Review of Systems Unable to obtain accurate/complete ROS d/t: Unclear reliability of reports Patient Problems: Active and Suspected Problems Severe sepsis (Acute) HCAP (healthcare-associated pneumonia) (Acute) Legionella pneumonia (Acute) Acute respiratory failure with hypoxia (Acute) Objective: Chest x-ray was personally reviewed showing bilateral infiltrates, right greater than left. Patient did have a CT of the abdomen on 01/21/2018 showing an 8 cm x 5.9 cm x 4.8 cm stomach cyst structure in the right lower abdomen and atrophy of the tunica-biloxi kidneys. - Physical Exam General: - - RASS -1. Follows commands, but falls asleep relatively quickly. Appears stated age. HEENT: Atraumatic, PERRLA, EOMI, Normocephalic, - - No scleral icterus or injection noted. Oral: No Gingival or Mucosal Lesions/ Ulcerations, Dry Mucosa Neck: Supple, No JVD, No Nodes, Trachea Midline Lungs: No wheeze, No rales, Diminished, Rhonchi, - - Symmetric expansion. No dullness to percussion. Cardiovascular: Regular rate, Regular Rhythm, Normal S1, Normal S2, No murmurs, No rub noted, No Gallop Abdomen: Soft, Hypoactive Bowel Sounds - Right sided, Distended, Guarding, Tender - Right flank Extremities: No clubbing, No cyanosis, No edema, Capillary Refill Less than 3 Seconds Skin: No rashes, No breakdown Musculoskeletal: No Tenderness to Palpation of Joints or Extremities Lymphatic: No Cervical, Supraclavicular, or Inguinal Adenopathy Neurological: Cranial nerves II-XII grossly intact, Neuro grossly intact, Motor Exam 5/5 strength throughout Psych/Mental Status: Anxious, Impulsive, Restless Vital Signs Temp Pulse Resp BP Pulse Ox 38.2 C H 85 23 H 109/54 L 99 01/28/18 05:00 01/28/18 07:00 01/28/18 07:00 01/28/18 07:00 01/28/18 07:00 Oxygen Flow Rate (L/min) 8 Oxygen Delivery Method Bi-pap Weight: 71.9 kg Body Mass Index (BMI) 24.7 Intake and Output for Last 24 Hours Intake Total 3240 / 3240 Output Total 650 / 650 Balance 2590 / 2590 Laboratory Tests Past 24 Hrs WBC RBC Hgb Hct MCV MCH MCHC RDW RDW Differential Plt Count MPV Specimen Type WBC RBC Hgb Hct MCV MCH POC Glucose POC Glucose 215 H 170 H Clinical Impression(s) from Imaging Studies Chest X-Ray 01/27/18 14:13 IMPRESSION: Bilateral pulmonary infiltrates. Electronically Signed: Roger Griffith MD at 15:08 EDT Tel [phone], Service support , Assessment/Plan Active and Suspected Problems Severe sepsis (Acute) HCAP (healthcare-associated pneumonia) (Acute) Legionella pneumonia (Acute) Acute respiratory failure with hypoxia (Acute) RECOMMENDATIONS: 1. Consult ID 2. Continue BiPAP therapy, monitor for signs of respiratory muscle fatigue 3. Continue fluid resuscitation 4. Await nephrology recommendations 5. Attempt to obtain old records from [place] IMPRESSIONS: 1. Acute hypoxic respiratory failure secondary to Legionella pneumonia Patient currently on BiPAP therapy and tolerating well. Cannot exclude patient decompensating over the next 24-48 hours and requiring intubation. Patient does not have a history of obstructive lung disease. Infectious disease will be consulted. Patient is receiving some immunosuppression at this time. Patient may require transition to fluoroquinolone therapy such as Levaquin. Likely okay to discontinue vancomycin. 2. Immunosuppression status post kidney transplant secondary to type 1 diabetes Patient currently receiving some of her immunosuppression. Will defer to nephrology and infectious disease on appropriateness of each immunosuppressive medication. 3. Acute on chronic kidney disease stage III Patient appears to be responding to fluid resuscitation at this time. Patient does have significant hypoxia that may lead to ATN. Continue to monitor renal function on a daily basis. Patient does not have any indication for acute renal replacement therapy at this time. 4. Diabetes mellitus type 1 with retinopathy, chronic kidney disease Patient will likely be n.p.o. secondary to BiPAP requirements. May need to decrease Lantus therapy. Continue to monitor blood sugars every 6 hours. If persistently hypoglycemic, dextrose can be added to IV fluids. 5. Hypertension/lack of baseline medical records/abdominal cyst Complicates care, management, recovery and prognosis. Will attempt to obtain old records to see if cyst has been noted previously. TIME: 45 minutes critical care time spent addressing patient's acute hypoxic respiratory failure, acute kidney injury, diabetes mellitus, review of all data and collaboration with care team. (7 AM to 8 AM) Code Visit 9xxxx: [id number] Critical care first hour 01/29/18 0536 <Electronically signed by Jonny Calles MD> Date Jonny Calles MD Cosigner Signature (if applicable): Date CC: Jonny Calles MD; Aster Martin MD; Jourdan Cam M.D.; Stan Aden MD Signed BEDSIDE GLUCOSE Collected: 01/29/2018 Status: F Source: [place] 5:02 AM [facility] REPOSITORY TYPE CODE TESTS RESULT OUT OF REFERENCE UNITS RANGE LAB L501.080 70-110 mg/dL High BEDSIDE GLU 275 Result Comment: MANAGEMENT OF PATIENT CARE PER NURSING PROTOCOL Performed By: #### L501.080 #### [facility] [address] [address] CBC-COMPLETE BLOOD CNT Collected: 01/29/2018 Status: F Source: [place] NO DIFF 4:50 AM [facility] REPOSITORY TYPE CODE TESTS RESULT OUT OF RANGE REFERENCE UNITS LAB L100.1000 4.4-11.0 K/mm3 Normal WBC 10.7 LAB L100.1200 4.2-5.4 M/mm3 Low RBC 3.02 LAB L100.1300 12.0-15.0 g/dl Low HGB 8.1 LAB L100.1400 37-47 % Low HCT 24.1 LAB L100.1500 81-99 fL Low MCV 79.8 LAB L100.1600 27.0-32.0 pg Low MCH 26.8 LAB L100.1700 32-36 g/gl Normal MCHC 33.6 LAB L100.1810 11.6-14.6 % High RDW CV 14.8 LAB L100.1820 35.1-43.9 fl Normal RDW SD 43.2 LAB L100.1900 150-450 K/mm3 Normal PLT 211 LAB L100.2000 6.2-12.0 fl Normal MPV 11.1 Performed By: #### L100.0500 #### [facility] [address] [place], [address] BASIC METABOLIC Collected: 01/29/2018 Status: F Source: [place] PROFILE (BMP) 4:50 AM [facility] REPOSITORY TYPE CODE TESTS RESULT OUT OF RANGE REFERENCE UNITS LAB L501.0100 74-106 mg/dL High GLU 254 Result Comment: Glucose result greater than or equal to 200 mg/dL suggests DIABETES MELLITUS per A.D.A. criteria. Please note revised GLUCOSE reference range effective 2017. LAB L501.1000 7-18 mg/dL High BUN 41 LAB L501.1100 0.55-1.02 mg/dL High CREAT,SERUM 3.64 Result Comment: The validity of the calculated GFR AND GFRAA in patients over 70 years has not been determined. Clinical correlation is essential. LAB L501.1110 >60 mL/min Low EST GFR 15 Result Comment: Non- GFR Calc LAB L501.1115 >60 mL/min Low EST GFR - AA 18 Result Comment: GFR Calc LAB L501.1255 ml/min Normal Estimated CRCL 19.43 LAB L501.1300 10-20 RATIO Normal BUN/CRE 11.3 LAB L501.2200 8.5-10 mg/dL Low .1 CA 7.9 LAB L501.5300 136-14 mmol/L Normal 5 NA 138 LAB L501.5600 3.5-5. mmol/L Normal 1 K 4.7 Result Comment: Slight Hemolysis, Result may be falsely increased. LAB L501.5900 98-107 mmol/L High CL 109 LAB L501.6100 21.0-32.0 mmol/L Low CO2 15.0 LAB L501.6200 5-15 Normal GAP 14 Performed By: #### L500.2500 #### [facility] [address] [place], [place], [address] OPERATIVE REPORT Observed: 01/29/2018 Status: UNK Source: [facility] 12:00 AM [facility] REPOSITORY [address] [address] Patient Name: BERTRAM AMBROSE : 1980 Date of Service: 01/29/2018 Patient Location: [facility] [id number] Patient Type: I Surgeon: Jose Martinez MD Report Type: Operative Reports PREOPERATIVE DIAGNOSES: 1. Vitreous hemorrhage of the left eye. 2. Tractional retinal detachment of the left eye. POSTOPERATIVE DIAGNOSES: 1. Vitreous hemorrhage of the left eye. 2. Tractional retinal detachment of the left eye. OPERATION/PROCEDURE: 23-gauge pars plana vitrectomy, membrane peel, laser, Avastin injection to the left eye. SURGEON: Jose Martinez MD VISUAL DESIGN LEAD(S): Kirby Ojeda MD PhD ANESTHESIA: General endotracheal anesthesia supplemented with a retrobulbar block consisting of a 1:1 mixture of 2% lidocaine and 0.5% Marcaine with hyaluronidase to the left eye. COMPLICATIONS: None. ESTIMATED BLOOD LOSS: Less than 5 cc. INDICATIONS FOR SURGERY: Ms. Ambrose is a 37-year-old female with a history of proliferative diabetic retinopathy. She presented with decreased vision in her left eye. Upon exam, she was found to have a vitreous hemorrhage and a tractional retinal detachment. Upon discussion of risks, benefits, and alternatives, the patient elected to proceed with surgery. Informed consent was obtained. DESCRIPTION OF PROCEDURE: The patient was identified in the preoperative holding area. The left eye was marked to be the operative eye. The patient was then brought back to the operating suite. Time-out was performed per protocol. General endotracheal anesthesia was induced by anesthesia team. A retrobulbar block consisting of the aforementioned mixture was given to the left eye to a total of 5 mL. Then, the left eye was prepped and draped in standard sterile fashion for ophthalmic surgery. Lid speculum was placed in the eye. The operating microscope was brought in the field. 23-gauge trocar cannulas were placed in standard wound construction fashion inferotemporal, superotemporal, and superonasal 4 mm from the scleral corneal limbus. The infusion line was attached to the inferotemporal cannula, and under direct visualization of the tip in the vitreous cavity, the infusion line was turned on. Then, a core vitrectomy was performed. The patient had dense blood covering the macula and the optic nerve and also fibrous membranes extending from the optic nerve to the arcade 360, and a tractional retinal detachment at the arcade. After the core vitrectomy was completed, the core vitreous was from the peripheral cortical vitreous, and then by using the vitrector, the membranes were segmented and delaminated off the retina that was done inferosuperiorly and nasally. After the membranes were delaminated and trimmed very close to the retina, the peripheral cortical vitrectomy was performed with the assistance of scleral depression 360 as necessary. The patient appeared to have some previous laser inferonasally and then by using the endolaser, endolaser was placed in a scattered fashion 360 in the periphery successfully. Then, the blood was aspirated off the retina, and no breaks were identified. Then, the trocar cannulas were removed and were found to be watertight. A 0.05 mL of Avastin was injected into the eye, 1.25 mg, and then subconjunctival injection of Ancef and dexamethasone was given to the inferior fornix. TobraDex ointment was applied to the eye. The eye was patched and shielded in standard fashion. The patient was extubated and discharged to recovery in stable condition. ATTESTATION STATEMENT: I was present and participated in all vitale portions of surgery. I was immediately available. Jose Martinez MD EST TT: 02/02/2018 04:12 AM EST DICTATION NUMBER: [id number] SPHERANÍBAL JOB NUMBER: [id number] CC: Marleen Goldstein MD, PhD, [id number] Edited by Jose Martinez 02/05/2018 01:22:47 PM Electronically Signed by Dr. Jose Martinez 02/05/2018 01:22:47 PM BEDSIDE GLUCOSE Collected: 01/28/2018 Status: F Source: [place] 11:54 PM [facility] REPOSITORY TYPE CODE TESTS RESULT OUT OF REFERENCE UNITS RANGE LAB L501.080 70-110 mg/dL High BEDSIDE GLU 273 Result Comment: MANAGEMENT OF PATIENT CARE PER NURSING PROTOCOL Performed By: #### L501.080 #### [facility] Point of Care Timothy [address] [address] BEDSIDE GLUCOSE Collected: 01/28/2018 Status: F Source: [place] 6:01 PM [facility] REPOSITORY TYPE CODE TESTS RESULT OUT OF REFERENCE UNITS RANGE LAB L501.080 70-110 mg/dL High BEDSIDE GLU 181 Result Comment: MANAGEMENT OF PATIENT CARE PER NURSING PROTOCOL Performed By: #### L501.080 #### [facility] Point of Care [address] [facility] [place] [address] Observed: 01/28/2018 Status: F Source: [place] CULTURE, [place] 2:00 PM [facility] REPOSITORY Gram Stain Gram Stain 2+ Gram positive cocci 1+ Epithelial cells 1+ White Blood Cells 1+ Gram positive rods Resp. Culture Mixed normal respiratory won. No Haemophilus, Streptococcus pneumoniae, beta-hemolytic Streptococcus or Staphylococcus aureus isolated. Performed By: #### M100.0800 #### [facility] [address] [place], [address] CONSULTATION Observed: 01/28/2018 Status: F Source: [place] 12:32 PM [facility] REPOSITORY [facility] Medical Records Department [address] [place] [address] Consultation 01/28/18 1221 MR#: [id number] Acct: [id number] Name: BERTRAM AMBROSE Rep #: [id number] : 1980 37 From: Giancarlo Cam MD PCP: Aster Martin MD Status: ADM IN Y Location: ICU ICU01-1 Problem List (1) NEL (acute kidney injury) Status: Acute Consultation - Renal 01/28/18 PCP/ Referring MD: Requesting physician: Dr Calles Primary care physician: Aster Martin MD Reason for Consultation:: NEL - History of Present Illness History of Present Illness: The patient is a 37 year old F admitted to hospital yesterday with respiratory failure. Nephrology consulted for NEL, kidney transplant status. sshe has known history of donor kidney transplant which was performed at [facility] in 2011. Primary cause of kidney failure was diabetes. She used to live in [place] and was recently here visiting her mother who lives in the area. Few days ago she was in house with hyperglycemia. At that time her creatinine was around 1.8. She tells me that her baseline creatinine is around 1.3-1.4. Immunosuppression has listed below. No recent changes in medications. Episode of 1 rejection which was treated successfully about 2 years ago as per patient. Since she has been taking all her medications up until she came into the hospital. Last dose of tacrolimus was yesterday morning before she came in. Came into the hospital with breathing problems. Chest x-ray showed bilateral pneumonia. This morning legionella antigen came back positive. Presented with a creatinine of 3.9 and with resuscitation is now down to 3.3. She has been voiding without any problems as per staff. Denies any graft site tenderness. No one else in the family is sick. Did not travel anywhere else out off home. Originally from [place]. - Allergies Allergies: Allergies furosemide [From Lasix] Allergy (Verified 01/20/18 14:16) Hives - Current Medications Current Medications: Current Medications Acetaminophen (Tylenol) 650 mg RECTAL Q4H PRN PRN PRN Reason: FEVER Last Admin: 01/28/18 12:08 Dose: 650 mg Albuterol Sulfate (Ventolin Aerosols) 2.5 mg INHALATION Q2H PRN PRN PRN Reason: SHORTNESS OF BREATH Albuterol/Ipratropium (Duoneb) 3 ml INHALATION Q6H.RT ANA MARIA Last Admin: 01/28/18 06:40 Dose: 3 ml Bisacodyl (Dulcolax) 10 mg RECTAL DAILY PRN PRN PRN Reason: Constipation Dextrose (D50w Syringe) 0 gm IV X1 PRN; Protocol PRN Reason: Hypoglycemia Diphenhydramine HCl (Benadryl) 25 mg PO QODAY ANA MARIA Last Admin: 01/28/18 11:03 Dose: Not Given Diphenhydramine HCl (Benadryl) 25 mg IV QODAY COUNTS INCLUDE 234 BEDS AT THE [facility] Docusate Sodium (Colace) 200 mg PO BID PRN PRN PRN Reason: Constipation Fentanyl Citrate (Sublimaze (100mcg Ampule)) 50 mcg IV Q2H PRN PRN PRN Reason: PAIN Last Admin: 01/28/18 12:08 Dose: 50 mcg Fluticasone Propionate (Flonase Nasal [place]) 2 spray NASAL TID PRN PRN PRN Reason: ALLERGIES Glucagon () 1 mg IM .X1 PRN PRN Reason: Hypoglycemia Heparin Sodium (Porcine) (Heparin Na) 5,000 unit SC Q12 ANA MARIA Last Admin: 01/28/18 10:20 Dose: Not Given Sodium Chloride () 1,000 mls @ 75 mls/hr IV .[id number] COUNTS INCLUDE 234 BEDS AT THE [facility] Last Admin: 01/28/18 06:56 Dose: 75 mls/hr Cefepime HCl 2 gm/ Sodium (Chloride) 100 mls @ 200 mls/hr IV Q24 COUNTS INCLUDE 234 BEDS AT THE [facility] Last Admin: 01/28/18 10:21 Dose: 200 mls/hr Levofloxacin (Levaquin Iv) 500 mg in 100 mls @ 100 mls/hr IV Q48 COUNTS INCLUDE 234 BEDS AT THE [facility] Famotidine 20 mg/ Sodium (Chloride) 10 mls @ 300 mls/hr IV Q24 COUNTS INCLUDE 234 BEDS AT THE [facility] Last Admin: 01/28/18 10:31 Dose: 300 mls/hr Sodium Chloride () 250 mls @ 15 mls/hr IV .[id number] PRN PRN Reason: SALINE FLUSH Insulin Glargine (Lantus (Bkc)) 16 units SC 0600 COUNTS INCLUDE 234 BEDS AT THE [facility] Last Admin: 01/28/18 11:12 Dose: 16 units Insulin Human Lispro (Humalog Kwikpen (Bkc)) 0 unit SC Q6 COUNTS INCLUDE 234 BEDS AT THE [facility] PRN Reason: Protocol Methylprednisolone (Solu-Medrol) 40 mg IV Q24 COUNTS INCLUDE 234 BEDS AT THE [facility] Last Admin: 01/28/18 11:02 Dose: 40 mg Ondansetron HCl (Zofran) 4 mg IV Q8H PRN PRN PRN Reason: NAUSEA Oxycodone HCl (Oxyir) 5 mg PO Q4H PRN PRN PRN Reason: Moderate Pain (pain scale 4-5) Last Admin: 01/27/18 18:48 Dose: 5 mg Pravastatin Sodium (Pravachol) 40 mg PO QHS COUNTS INCLUDE 234 BEDS AT THE [facility] Last Admin: 01/27/18 21:19 Dose: 40 mg Prednisone () 5 mg PO DAILY@0800 COUNTS INCLUDE 234 BEDS AT THE [facility] Last Admin: 01/28/18 10:20 Dose: Not Given Sodium Chloride () 5 - 30 ml IV UD PRN PRN Reason: SALINE FLUSH Tacrolimus (Prograf) 1 mg PO BID COUNTS INCLUDE 234 BEDS AT THE [facility] Last Admin: 01/27/18 21:19 Dose: 1 mg Tacrolimus (Prograf) 0.5 mg SL BID COUNTS INCLUDE 234 BEDS AT THE [facility] Last Admin: 01/28/18 10:27 Dose: 0.5 mg - 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) - Past Surgical History Surgical History: appendectomy, - - Status post kidney transplant, poor wound debridement, diverting sigmoid colostomy on 07/06/2017, reversed on 07/07/2017, percutaneous tracheostomy, no longer has, left TMA - Social History Smoking Status: Former smoker - Family History Maternal History Items: Diabetes, Hypertension Paternal History Items: No pertinent history Review of Systems Constitutional: Denies: Chills, Fever, Weight Change HEENT: Denies: Head Aches, Sinus Congestion, Sinus Drainage Cardiovascular: Denies: Chest Pain, Palpitations Respiratory: Reports: Cough, Shortness of breath at rest. Denies: Sputum production Gastrointestinal: Denies: Abdominal Pain, Nausea, Vomiting Genitourinary: Denies: Dysuria Musculoskeletal: Denies: Joint Pain, Joint Tenderness Skin: Denies: Rash, Wounds Neurological: Denies: Numbness, Tingling, Focal weakness Psychiatric: Denies: Anxiety, Depression, Homicidal Ideations, Suicidal Ideations Hematologic/ Lymphatic: Denies: Easy Bruising, Easy Bleeding Patient Problems: Active and Suspected Problems Severe sepsis (Acute) HCAP (healthcare-associated pneumonia) (Acute) Legionella pneumonia (Acute) Acute respiratory failure with hypoxia (Acute) NEL (acute kidney injury) (Acute) - Physical Exam General: Alert, Oriented x3, Cooperative HEENT: Atraumatic, PERRLA, EOMI, Normocephalic Neck: Supple, No JVD, Negative Carotid Bruits Lungs: Normal air movement Cardiovascular: Regular rate, No murmurs Abdomen: Bowel Sounds Present, Soft, Non Tender Extremities: No edema, Capillary Refill Less than 3 Seconds Skin: No rashes, No breakdown Musculoskeletal: No Tenderness to Palpation of Joints or Extremities Neurological: Cranial nerves II-XII grossly intact Psych/Mental Status: Normal Affect, Appropriate Vital Signs Temp Pulse Resp BP Pulse Ox 100.1 F H 94 28 H 121/74 H 95 01/28/18 10:00 01/28/18 11:00 01/28/18 11:00 01/28/18 11:00 01/28/18 11:00 Oxygen Flow Rate (L/min) 8 Oxygen Delivery Method Nasal Cannula Weight: 71.9 kg Body Mass Index (BMI) 24.7 Intake and Output for Last 24 Hours Intake Total 3240 / 3240 Output Total 650 / 650 Balance 2590 / 2590 Laboratory Tests Past 24 Hrs WBC RBC Hgb Hct MCV MCH MCHC RDW RDW Differential Plt Count MPV Specimen Type WBC RBC Hgb Hct MCV MCH POC Glucose POC Glucose 150 H 215 H 170 H Assessment/Plan All Active Problems Severe sepsis (Acute) HCAP (healthcare-associated pneumonia) (Acute) Legionella pneumonia (Acute) Acute respiratory failure with hypoxia (Acute) NEL (acute kidney injury) (Acute) donor kidney transplant done in 2011 as per patient at [facility] baseline creatinine apparently around 1.3. Admitted with a creatinine of 3.9, today down to 3.3. At home she is on triple immunosuppression tacrolimus, CellCept, prednisone. Now diagnosed with Legionella pneumonia. Acute renal failure. Likely related to sepsis. Creatinine is improving. Urine output is adequate. Kidney transplant. On triple immunosuppression. Yesterday she was on nasal cannula an unknown, today breathing status looks somewhat worse with BiPAP requirement. Unable to take any medications by mouth. Due to severe infection will hold CellCept. Will convert tacrolimus to sublingual since she is nothing by mouth. Change steroids to IV. Currently on Solu-Medrol 40 mg IV daily. If she continues to be in this breathing situation, we will hold tacrolimus and do CellCept IV. Tacrolimus level has been sent yesterday evening. Results are pending. If her renal function worsens or she remains nothing by mouth status, she will be transferred to a tertiary care center d/w Dr Calles d/w Dr Jackson 01/28/18 1232 <Electronically signed by Giancarlo Cam MD> Date Giancarlo Cam MD Cosigner Signature (if applicable): Date CC: Jonny Calles MD; Aster Martin MD; Jourdan Cam M.D.; Stan Aden MD Signed BEDSIDE GLUCOSE Collected: 01/28/2018 Status: F Source: [place] 12:03 PM [facility] REPOSITORY TYPE CODE TESTS RESULT OUT OF REFERENCE UNITS RANGE LAB L501.080 70-110 mg/dL High BEDSIDE GLU 118 Result Comment: MANAGEMENT OF PATIENT CARE PER NURSING PROTOCOL Performed By: #### L501.080 #### [facility] Point of Care [address] [place] [address] PELVIC (NON ) Observed: 01/28/2018 Status: F Source: [place] 11:22 AM [facility] REPOSITORY [facility] Imaging Services [address] [place] [address] Pelvic (Non ) MR#: [id number] Acct: [id number] Name: BERTRAM AMBROSE Rep #: [id number] : 1980 F 37 From: Rj Brown MD PCP: Aster Martin MD Status: ADM IN Study: Pelvic (Non ) Date of Exam: 01/28/18 Exam# [id number] Ordering Dr: Julio Jackson MD STUDY: ULTRASOUND OF THE FEMALE PELVIS - COMPLETE REASON FOR EXAM: Female, 37 years old. Pelvic mass seen on CT. Possible lymphocele in patient with history with transplant kidney. LMP: CT abdomen pelvis January 21, 2018 TECHNIQUE: Transabdominal TECHNICAL QUALITY: Adequate. COMPARISON: None. FINDINGS: The uterus is anteverted and is in a midline position. The uterus measures 9.0 x 4.1 x 4.0 cm. Normal uterine cervix. The endometrium measures 3.8 mm in thickness, and is hyperechoic. There is no demonstrated endometrial mass. There are 2 pedunculated uterine fibroids. One projects from the top of the uterine fundus, measuring 2.3 x 1.9 x 2.0 cm. The second, measuring 2.9 x 3.0 x 3.1 cm, emanates from the left fundal region and contains a coarse calcification. I.U.D. - The patient does not have an I.U.D. The right ovary is visualized. The right ovary measures 2.1 x 1.2 x 1.2 cm. Inseparable from the ovary is a well-defined 7.9 x 5.4 x 5.3 cm fluid-filled structure/cyst that correlates to the fluid-filled collection seen by CT. There is no visualized right adnexal mass or complex lesion. There is normal arterial and normal venous vascularity. The left ovary is visualized. The left ovary measures 2.8 x 2.2 x 1.9 cm. There is no left ovarian cyst or ovarian mass. There is no visualized left adnexal mass or complex lesion. There is normal arterial and normal venous vascularity. There is no fluid in the cul-de-sac. The pre void volume of the bladder was 333.4 ml. Polycystic ovary disease: No. US/Pelvic (Non ) IMPRESSION: 1. 7.9 cm fluid-filled cystic structure in the right hemipelvis inseparable from the right ovary and correlating to the area of question on earlier CT. This is a few centimeters away from the transplant kidney itself, but differential would still include both right ovarian cyst as well as lymphocele. 2. Two pedunculated fibroids emanating from the fundus of the uterus, as described. 3. Normal endometrial thickness. 4. Normal left ovary. Electronically Signed: Britton Brown MD at 13:50 EDT , Service support , CC: Julio Jackson MD; Aster Martin MD Newspaper Photojournalist: Signed CONSULTATION Observed: 01/28/2018 Status: F Source: [place] 10:45 AM [facility] REPOSITORY [facility] Medical Records Department [address] [place] [address] Consultation 01/28/18 1041 MR#: [id number] Acct: [id number] Name: BERTRAM AMBROSE Rep #: [id number] : 1980 37 From: Stephan Dalton MD PCP: Aster Martin MD Status: ADM IN Y Location: ICU ICU01-1 Reason for Consult: Respiratory failure with Legionella pneumonia immunocompromised host Consulted by: Dr. Calles History of Present Illness: The patient is a 37 year old F [] This is a 37-year-old -Maldivian female with long-standing history of diabetes mellitus complicated by end-stage renal disease and underwent renal transplant at [facility] in [facility] [place], patient does suffer some rejection of her transplant and has chronic renal disease. Patient is in [facility] visiting family and developed acute respiratory distress and high fevers. Patient was admitted last night with pulmonary infiltrates and severe sepsis. Interestingly patient was briefly in the hospital roughly 8 days ago for hyperglycemia. Patient is currently responsive but some BiPAP. History is obtained through talking to the nursing staff as well as to the critical care physician. Currently on levofloxacin and cefepime. Patient does suffer worsening renal dysfunction upon this admission compared to her laboratory studies from her previous admission last week. Her chest x-ray I personally reviewed shows bilateral pulmonary infiltrates. Her urine Legionella antigen is positive. Blood cultures are pending. - Medical History Past Medical History (Chronic Problems): Chronic Problems Hyperglycemia due to type 1 diabetes mellitus (Chronic) Hyperglycemia without ketosis (Chronic) DM type 1 (diabetes mellitus, type 1) (Chronic) 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) Allergies/Adverse Reactions: Allergies furosemide [From Lasix] Allergy (Verified 01/20/18 14:16) Hives Home Medications: Ambulatory Orders Medication Instructions Recorded Carvedilol [Coreg] 25 mg PO BID 01/20/18 Vital Signs Temp Pulse Resp BP Pulse Ox 100.7 F H 89 20 H 109/54 L 96 01/28/18 05:00 01/28/18 09:15 01/28/18 09:15 01/28/18 07:00 01/28/18 09:15 Oxygen Flow Rate (L/min) 8 Oxygen Delivery Method Bi-pap Weight: 71.9 kg Body Mass Index (BMI) 24.7 Laboratory Tests Past 24 Hrs WBC RBC Hgb Hct MCV MCH MCHC RDW RDW Differential Plt Count MPV Specimen Type WBC RBC Hgb Hct MCV MCH - Other Studies Radiology: [] Other Studies: [] Route of nutrition/ use of supplements: [] Nutritional Intake: [] IV Site: [] Yen Catheter: [] Patient is responsive but weak. On BiPAP machine for oxygen support. Lungs coarse breath sounds heart exam S1-S2 abdomen soft no peritoneal signs. - Assessment/Plan Antibiotics: [] Assessment/Plan: [] Active and Suspected Problems Severe sepsis (Acute) HCAP (healthcare-associated pneumonia) (Acute) Legionella pneumonia (Acute) Acute respiratory failure with hypoxia (Acute) Acute legionnaires pneumonia in immunocompromised host. Will continue levofloxacin. Cefepime empirically place her concern of possible gram-negative pathogens. Will closely follow her renal function and her cardiopulmonary status. 01/28/18 1045 <Electronically signed by Stephan Dalton MD> Date Stephan Dalton MD Cosigner Signature (if applicable): Date CC: Jonny Calles MD; Aster Martin MD; Jourdan Cam M.D.; Stan Aden MD Signed BEDSIDE GLUCOSE Collected: 01/28/2018 Status: F Source: [place] 8:06 AM [facility] REPOSITORY TYPE CODE TESTS RESULT OUT OF REFERENCE UNITS RANGE LAB L501.080 70-110 mg/dL High BEDSIDE GLU 150 Result Comment: MANAGEMENT OF PATIENT CARE PER NURSING PROTOCOL Performed By: #### L501.080 #### [facility] Point of Care [address] [place], [place] [address] BEDSIDE GLUCOSE Collected: 01/28/2018 Status: F Source: [place] 4:27 AM [facility] REPOSITORY TYPE CODE TESTS RESULT OUT OF REFERENCE UNITS RANGE LAB L501.080 70-110 mg/dL High BEDSIDE GLU 215 Result Comment: MANAGEMENT OF PATIENT CARE PER NURSING PROTOCOL Performed By: #### L501.080 #### [facility] Point of Care [address] [place] [address] CBC-COMPLETE BLOOD CNT Collected: 01/28/2018 Status: F Source: [place] NO DIFF 4:20 AM [facility] REPOSITORY TYPE CODE TESTS RESULT OUT OF RANGE REFERENCE UNITS LAB L100.1000 4.4-11.0 K/mm3 Normal WBC 9.1 LAB L100.1200 4.2-5.4 M/mm3 Low RBC 2.94 LAB L100.1300 12.0-15.0 g/dl Low HGB 8.1 LAB L100.1400 37-47 % Low HCT 23.3 LAB L100.1500 81-99 fL Low MCV 79.3 LAB L100.1600 27.0-32.0 pg Normal MCH 27.6 LAB L100.1700 32-36 g/gl Normal MCHC 34.8 LAB L100.1810 11.6-14.6 % High RDW CV 14.8 LAB L100.1820 35.1-43.9 fl Normal RDW SD 43.0 LAB L100.1900 150-450 K/mm3 Normal PLT 153 LAB L100.2000 6.2-12.0 fl Normal MPV 11.6 Performed By: #### L100.0500 #### [facility] [address] [place], [address] BASIC METABOLIC Collected: 01/28/2018 Status: F Source: [place] PROFILE (BMP) 4:20 AM [facility] REPOSITORY TYPE CODE TESTS RESULT OUT OF RANGE REFERENCE UNITS LAB L501.0100 74-106 mg/dL High GLU 207 Result Comment: Glucose result greater than or equal to 200 mg/dL suggests DIABETES MELLITUS per A.D.A. criteria. Please note revised GLUCOSE reference range effective 2017. LAB L501.1000 7-18 mg/dL High BUN 38 LAB L501.1100 0.55-1.02 mg/dL High CREAT,SERUM 3.52 Result Comment: The validity of the calculated GFR AND GFRAA in patients over 70 years has not been determined. Clinical correlation is essential. LAB L501.1110 >60 mL/min Low EST GFR 15 Result Comment: Non- GFR Calc LAB L501.1115 >60 mL/min Low EST GFR - AA 19 Result Comment: GFR Calc LAB L501.1255 ml/min Normal Estimated CRCL 20.09 LAB L501.1300 10-20 RATIO Normal BUN/CRE 10.8 LAB L501.2200 8.5-10 mg/dL Low .1 CA 7.5 LAB L501.5300 136-14 mmol/L Normal 5 NA 138 LAB L501.5600 3.5-5. mmol/L Normal 1 K 4.9 LAB L501.5900 98-107 mmol/L High CL 108 LAB L501.6100 21.0-3 mmol/L Low 2.0 CO2 16.0 LAB L501.6200 5-15 Normal GAP 14 Performed By: #### L500.2500 #### [facility] [address] [facility] [place], [place], [address] BLOOD GASES BY [facility] Collected: 01/27/2018 Status: F Source: [place] 11:16 PM [facility] REPOSITORY TYPE CODE TESTS RESULT OUT OF RANGE REFERENCE UNITS LAB L9000.9990 Normal BLD GAS TYPE ART LAB L9001.1000 Normal SITE L Radial LAB L9001.1050 O2 Normal Delivery Dev Nasal Can LAB L9001.1055 /min Normal LPM 8.0 LAB L9001.1104 Normal Results To ICU LAB L9001.1105 Normal Time Given 2310 LAB L9001.1110 7.35-7.45 pH Normal - I-STAT 7.37 LAB L9001.1210 35-45 mmHg Low pCO2 - ISTAT 30.5 LAB L9001.1310 75-100 mmHG Low PO2 I-STAT 51 LAB L9001.2300 22-26 mmol/L Low HCO3 ISTAT 17.6 LAB L9001.2400 -2 to +2 mmol/L Low BE ISTAT -8 LAB L9001.2415 mmol/L Normal TOTAL CO2 19 ISTAT LAB L9001.2425 95-99 % Low SO2 ISTAT 85 Performed By: #### L9000.0800 #### [facility] Point of Care [address] [place] [address] TACROLIMUS (PROGRAF) Collected: 01/27/2018 Status: F Source: [place] 9:35 PM [facility] REPOSITORY Order Comment: Order Date: 01/27/18 TYPE CODE TESTS RESULT OUT OF RANGE REFERENCE UNITS LAB L3380.1100 2.0-20.0 ng/mL Normal TACROLIMUS 2.8 Result Comment: Trough (immediately following transplant) 15.0 Trough (steady state, 2 weeks or more after transplant): 3.0 - 8.0 Detection Limit = 1.0 Performed by LC-MS/MS technology. Performed at: - [facility] [id number] Senior Project Manager Engineering: Rufino Goss MD, Phone: [phone] Performed By: #### L3380.1000 #### [facility] (refer to report for specific site) refer to report for address and phone number BEDSIDE GLUCOSE Collected: 01/27/2018 Status: F Source: [place] 9:29 PM [facility] REPOSITORY TYPE CODE TESTS RESULT OUT OF REFERENCE UNITS RANGE LAB L501.080 70-110 mg/dL High BEDSIDE GLU 170 Result Comment: MANAGEMENT OF PATIENT CARE PER NURSING PROTOCOL Performed By: #### L501.080 #### [facility] Point of Care [address] [place] [address] BASIC METABOLIC Collected: 01/27/2018 Status: F Source: [place] PROFILE (BMP) 7:35 PM [facility] REPOSITORY TYPE CODE TESTS RESULT OUT OF RANGE REFERENCE UNITS LAB L501.0100 74-106 mg/dL High GLU 186 Result Comment: Fasting Glucose result greater than or equal to 126 mg/dL suggests DIABETES MELLITUS per A.D.A. criteria. Please note revised GLUCOSE reference range effective 2017. LAB L501.1000 7-18 mg/dL High BUN 39 LAB L501.1100 0.55-1.02 mg/dL High CREAT,SERUM 3.70 Result Comment: The validity of the calculated GFR AND GFRAA in patients over 70 years has not been determined. Clinical correlation is essential. LAB L501.1110 >60 mL/min Low EST GFR 15 Result Comment: Non- GFR Calc LAB L501.1115 >60 mL/min Low EST GFR - AA 18 Result Comment: GFR Calc LAB L501.1255 ml/min Normal Estimated CRCL 19.11 LAB L501.1300 10-20 RATIO Normal BUN/CRE 10.5 LAB L501.2200 8.5-10 mg/dL Low .1 CA 8.1 LAB L501.5300 136-14 mmol/L Normal 5 NA 136 LAB L501.5600 3.5-5. mmol/L Normal 1 K 3.9 LAB L501.5900 98-107 mmol/L Normal CL 105 LAB L501.6100 21.0-3 mmol/L Low 2.0 CO2 18.0 LAB L501.6200 5-15 Normal GAP 13 Performed By: #### L500.2500 #### [facility] [address] [facility] [place], [address] LACTIC ACID Collected: 01/27/2018 Status: F Source: [place] 7:35 PM [facility] REPOSITORY TYPE CODE TESTS RESULT OUT OF RANGE REFERENCE UNITS LAB L503.6005 0.4-2.0 mmol/L Normal LACTIC ACID 1.0 Performed By: #### L503.6005 #### [facility] [address] [place], [address] M R STAPH AUREUS Collected: 01/27/2018 Status: F Source: [place] DNA BY PCR 6:00 PM [facility] REPOSITORY TYPE CODE TESTS RESULT OUT OF RANGE REFERENCE UNITS LAB L8200.1100 Negative Normal MRSA Negative RESULT Performed By: #### L8200.1000 #### [facility] [address] [place], [address] HISTORY AND PHYSICAL Observed: 01/27/2018 Status: F Source: [place] EXAM 5:33 PM [facility] REPOSITORY [facility] Medical Records Department [address] [place] [id number] History and Physical 01/27/18 1706 MR#: [id number] Acct: [id number] Name: BERTRAM AMBROSE Rep #: [id number] : 1980 37 From: Julio Jackson MD PCP: Aster Martin MD Status: REG ER Y Location: ED Problem List (1) Severe sepsis Status: Acute (2) HCAP (healthcare-associated pneumonia) Status: Acute (3) Hyperglycemia without ketosis Status: Chronic (4) CKD stage 3 due to type 1 diabetes mellitus Status: Chronic (5) DM type 1 (diabetes mellitus, type 1) Status: Chronic Qualifiers: Diabetes mellitus complication status: with neurologic complications Diabetes mellitus complication detail: with unspecified neuropathy Qualified Code(s): E10.40 - Type 1 diabetes mellitus with diabetic neuropathy, unspecified (6) Hyperglycemia due to type 1 diabetes mellitus Status: Chronic History of Present Illness Date of Admission: 01/27/18 Chief Complaint: Shortness of breath The patient is a 37 year old F with past medical history significant for diabetes mellitus type 1, CKD, history of kidney transplant with subsequent rejection discharge from the hospital 5 days prior to her readmission. Patient was on admission for hyperosmolar nonketotic state. Patient reports worsening condition since being discharged. She is developed intermittent fever and chills as well as shortness of breath. She also did complain of back pain. She presented back to the emergency department where the studies obtained on admission demonstrated bilateral infiltrate consistent with pneumonia. Patient was also found to have elevated lactic acid level. Treatment for severe sepsis was initiated and patient admitted to the intensive care unit for subsequent management. 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) Allergies furosemide [From Lasix] Allergy (Verified 01/20/18 14:16) Hives Home Medications: Ambulatory Orders Medication Instructions Recorded Albuterol Sulfate [Proair Hfa] 2 puff INHALATION Q6H PRN PRN 01/20/18 Surgical History: appendectomy, - - Status post kidney transplant, poor wound debridement, diverting sigmoid colostomy on 07/06/2017, reversed on 07/07/2017, percutaneous tracheostomy, no longer has, left TMA Psychiatric History: No pertinent psych hx RATER ASSOCIATE History: No pertinent RATER ASSOCIATE history Smoking Status: Former smoker - *Family History Maternal History Items: Diabetes, Hypertension Paternal History Items: No pertinent history Review of Systems Constitutional: Reports: Anorexia, Fever, Night Sweats, Malaise, Weakness, Fatigue HEENT: Denies: Head Aches, Sinus Congestion, Sinus Drainage Cardiovascular: Denies: Chest Pain Respiratory: Reports: Cough, Shortness of Breath Gastrointestinal: Denies: Abdominal Pain, Hematemesis, Hematochezia, Nausea, Melena, Vomiting Genitourinary: Denies: Dysuria, Frequency, Hematuria, Urgency Musculoskeletal: Denies: Joint Pain, Joint Tenderness Skin: Denies: Rash Neurological: Denies: Focal weakness, Numbness, Tingling Psychiatric: Denies: Homicidal Ideations, Suicidal Ideations Hematologic/ Lymphatic: Denies: Easy Bruising, Easy Bleeding VTE Information - Inpt Only VTE Present on Admission: No VTE Mechan Device Prophylaxis: Knee High RAND Hose VTE Pharm Prophylaxis ordered?: Yes Patient Problems: Active and Suspected Problems Severe sepsis (Acute) HCAP (healthcare-associated pneumonia) (Acute) Objective: GENERAL: Patient appears ill looking. HEENT: Clear conjunctiva, NECK; supple, normal thyroid, CHEST: Diminished to auscultation bilaterally, HEART: Regular S1 S2, tachycardic ABDOMEN: soft, non-tender, normoactive bowel sounds, RECTAL: deferred EXTREMITIES: No edema, no clubbing, no cyanosis. FIRST AID TRAINER: Awake; no lateralizing signs. SKIN: No Rash - Physical Exam Vital Signs Temp Pulse Resp BP Pulse Ox 100.2 F H 96 29 H 106/58 L 94 01/27/18 15:50 01/27/18 16:09 01/27/18 16:09 01/27/18 16:09 01/27/18 16:09 Oxygen Flow Rate (L/min) 6 Oxygen Delivery Method Nasal Cannula Weight: 72.575 kg Body Mass Index (BMI) 25.8 Finger Stick Blood Glucose 176 Laboratory Tests Past 24 Hrs WBC 9.3 RBC 3.60 L Hgb 10.1 L Hct 28.0 L MCV 77.8 L MCH 28.1 WBC RBC Hgb Hct MCV MCH MCHC RDW RDW Differential Plt Count MPV Immature Gran % (Auto) POC Glucose POC Glucose 176 H 130 H 112 H Assessment/Plan All Active Problems Severe sepsis (Acute) HCAP (healthcare-associated pneumonia) (Acute) Patient is a 37-year-old lady with history of diabetes mellitus type 1, history of kidney transplant with subsequent rejection presented with progressive shortness of breath imaging studies demonstrated features consistent with pneumonia admitted to the intensive care unit for subsequent management 1. Severe sepsis secondary to healthcare acquired pneumonia: Patient has been admitted to intensive care unit managed per protocol with receive IV fluids, broad-spectrum antibiotic therapy Zosyn, ciprofloxacin as well as vancomycin. Cultures were obtained prior to initiation of antibiotic therapy. Consultation was placed to Dr. Calles which intensive care notified by the ED 2. Healthcare acquired pneumonia with suspected gram-negative organisms management as discussed above 3. Diabetes mellitus type 1 since age 10 did continue with patient home regimen 4. Diabetic nephropathy with previous kidney transplant patient apparently had rejection and was treated with immunotherapy auscultation was placed to Dr. edwards he was notified by the ED prior to patient's admission 5. Acute on chronic kidney disease on IV fluids with monitoring of electrolyte 6. Diabetic retinopathy 7. Chronic kidney disease stage III with previous kidney transplant. Patient currently on Prograf as well as CellCept 8. Hypertension did continue with home meds 9. DVT prophylaxis SC heparin Code Visit Inpatient E AND M: [id number] Init Hosp L3 01/27/18 1733 <Electronically signed by Julio Jackson MD> Date Julio Jackson MD Cosigner Signature: Date (if applicable) CC: Julio Jackson MD; Aster Martin MD Signed EMERGENCY DEPARTMENT Observed: 01/27/2018 Status: F Source: [place] SUMMARY 5:20 PM [facility] REPOSITORY [facility] Medical Records Department [address] [place] [address] Emergency Department Summary 01/27/18 1642 MR#: [id number] Acct: [id number] Name: BERTRAM AMBROSE Rep #: [id number] : 1980 37 From: Dwight Elam DO PCP: Aster Martin MD Status: REG ER - ER Visit Summary Date of Service: 01/27/18 Chief Complaint: Fever and hypoxia History of Present Illness: The patient is a 37 F who approximately 3 years ago received a renal transplant at [facility] in [place]. In the past month she has moved to [place]. She does not have a local managing jeweler yet. She was recently admitted for [facility]. Patient at that time had a creatinine level of 1.9. She believes her creatinine in [place] was either 1.3 of 1.7. Patient today woke and noticed that she had been coughing. She notes chills. She felt weak. Her called EMS. The patient's blood sugar was noted to be low and EMS gave glucose. Initial pulse ox is 80% on room air. She notes pain in the right CVA region. She denies any pain over her renal transplant site which she points to the right lower quadrant as the implantation area. Physical Examination: 102.6 heart rate is 92 respirations is 26 pulse ox is 80% on room air 91% on 6 L blood pressure 117/64 Gen: Well-nourished well-developed Head: Normocephalic atraumatic Eyes: Perrl EOMI ENT: TMs clear no rhinorrhea moist mucous membranes Neck: Supple no lymphadenopathy no JVD nontender CVS: Regular rate tachycardia rhythm no murmurs normal S1-S2 Respiratory: No distress rhonchorous lung sounds chest nontender Abdomen: Soft nontender nondistended normal bowel sounds no masses no tenderness over the graft site Back: CVA tenderness to palpation Extremity: Nontender no edema Skin: Normal color no rash Neuro: alert orientated 3 CN II-XII intact normal strength sensation reflexes gait cerebellar Psych: Normal affect normal mood Test Results: EKG sinus with a rate of 92. Chest x-ray shows bilateral infiltrates. White count 9.3. Platelets of 163. Hemoglobin 10.1. Creatinine significantly elevated now at 3.96 and a BUN of 40. CO2 of 20. Potassium 5.7. Anion gap 11. Lactic acid elevated 2.8 ketones are negative. Troponin 0 0.035. Urinalysis which was a straight cath showed 10-25 epithelial cells and 3+ bacteria but leukocyte esterase positive nitrite negative. No significant white or red blood cells. Emergency Department Course and Treatment: She has received IV fluids as well as Tylenol. Blood and urine cultures obtained. She received azithromycin vancomycin and Zosyn. I spoke with Dr. Calles for intensive care as well as Dr. Dowell for nephrology. Plan will be admission into the hospital. Dr. Jackson has accepted to the ICU. The patient her and her mother have been kept informed. Impression: 1. Bilateral pneumonia 2. Acute kidney injury 3. Sepsis 4. Hypoglycemia resolved 5. Hypoxemia 6. Immunocompromised 7. Critical care time 35 minutes This note was generated with SeeSpaceation software. It may contain incorrect words, spelling, and punctuation that were not noted in review of the chart prior to signing ED Disposition - Plan for ED Patient: Chief Complaint: Fever Referrals: Aster Martin MD [Primary Care Provider] - What to do if you have Problems For any increased pain, shortness of breath, bleeding, nausea or vomiting, chest pain, or any unexpected problems, contact your Primary Care Provider. Call [facility] ([phone]) or report to the closest Emergency Room. Call 911 if necessary. 01/27/18 1720 <Electronically signed by Dwight Elam DO> Date Dwight Elam DO Cosigner Signature (If Indicated): Date CC: Aster Martin MD BEDSIDE GLUCOSE Collected: 01/27/2018 Status: F Source: [place] 4:27 PM [facility] REPOSITORY TYPE CODE TESTS RESULT OUT OF REFERENCE UNITS RANGE LAB L501.080 70-110 mg/dL High BEDSIDE GLU 176 Result Comment: MANAGEMENT OF PATIENT CARE PER NURSING PROTOCOL Performed By: #### L501.080 #### [facility] Point of Care [address] [place] [address] URINALYSIS, COMPLETE Collected: 01/27/2018 Status: F Source: [place] 3:35 PM [facility] REPOSITORY Order Comment: Order Date: 01/27/18 Has pt arrived? Y How was Urine Obtained? BRICK CARRIER TO SPECIFY TYPE CODE TESTS RESULT OUT OF RANGE REFERENCE UNITS LAB L400.3000 Yellow COLOR Normal Yellow LAB L400.3050 Clear Normal CLARITY Sl. Cloudy LAB L400.3200 Normal mg/dl Normal GLUCOSE, UR Normal LAB L400.3300 Negative mg/dL High BILIRUBIN URINE 1 Result Comment: COLOR OF URINE MAY AFFECT DIPSTICK RESULTS. LAB L400.3400 Negative mg/dl Normal KETONE UR Negative LAB L400.3465 1.002-1.030 Normal SP.GR. DIPSTX 1.010 LAB L400.3550 5.0 - 8.0 pH Normal UR 8.0 LAB L400.3600 Negative mg/dl High PROT DIPSTX 500 LAB L400.3700 Normal mg/dl High UROBILI 4 LAB L400.3750 Negative Normal NITRITE UR Negative LAB L400.3780 Negative /ul High OCCULT 25 BLOOD-UR LAB L400.3800 Negative /ul High LEUK ESTERASE 25 LAB L400.4050 0-5 /hpf Normal WBC 0-5 SEEN LAB L400.4100 0-5 /hpf Normal RBC-UA 0-5 SEEN LAB L400.4150 5-10 /hpf Normal SQUAM EPI 10-25 SEEN LAB L400.4300 None Seen /hpf Normal BACTERIA 3+ LAB L400.4350 <or=2+ /hpf Normal MUCUS, URINE 0 SEEN Performed By: #### L400.0001 #### [facility] [address] [place], [address] STREP Observed: 01/27/2018 Status: F Source: [place] PNEUMONIAE ANTIG(UR,CSF) 3:35 PM [facility] REPOSITORY Order Date: 01/27/18 S pneumo Ag [] Negative Urine Presumptive negative for pneumococcal pneumonia, suggesting no current or recent pneumococcal infection. Infection due to S pneumoniae cannot be ruled out since the antigen present in the sample may be below the detection limit of the test. Strep pneumo Test Negative URINE (See interpretation below) Performed By: #### M300.4600 #### [facility] [address] [place], [address] Observed: 01/27/2018 Status: C Source: [place] LEGIONELLA ANTIGEN 3:35 PM [facility] URINE REPOSITORY RESULTS CALLED TO ANUJ MELGAR 01/27/18 2217 Raimundo Reza. REPORT READ BACK BY [facility] . SENT TO [facility] 01-27-18 AT 2218PM Order Date: 01/27/18 Legionella, UR * This is an amended result. * A prior result that was reported as final has been changed. 01/28/18 1515 by RYAN Previously reported as: Legionella Antigen result interpretation: POSITIVE Presumptive positive for Legionella pneumophila serogroup 1 antigen in urine, suggesting current or past infection. Legionella Ag, Urine Positive (See interpretation below) ORGANISM 1: Legionella Antigen Performed By: #### M300.4500 #### [facility] [address] [place], [address] Observed: 01/27/2018 Status: F Source: [place] CULTURE, URINE 3:35 PM [facility] REPOSITORY Order Date: 01/27/18 Has pt arrived? Y Urine Culture Culture exhibits no growth. Performed By: #### M100.0650 #### [facility] [address] [place], [address] BEDSIDE GLUCOSE Collected: 01/27/2018 Status: F Source: [place] 3:07 PM [facility] REPOSITORY TYPE CODE TESTS RESULT OUT OF REFERENCE UNITS RANGE LAB L501.080 70-110 mg/dL High BEDSIDE GLU 130 Result Comment: MANAGEMENT OF PATIENT CARE PER NURSING PROTOCOL Performed By: #### L501.080 #### [facility] Point of Care [address] [place], [place] [address] Observed: 01/27/2018 Status: F Source: [place] CULTURE, BLOOD (WB) 2:40 PM [facility] REPOSITORY BC No growth in 5 days. Performed By: #### M200.1000 #### [facility] [address] [place], [address] PROTHROMBIN TIME W/INR Collected: 01/27/2018 Status: F Source: [place] 2:15 PM [facility] REPOSITORY TYPE CODE TESTS RESULT OUT OF RANGE REFERENCE UNITS LAB L300.4150 11.7-14.9 SECONDS Normal PROTIME 14.6 LAB L300.4200 Normal INR 1.1 Performed By: #### L300.3900, L300.4310 #### [facility] [address] [place], [address] PARTIAL THROMBOPLAST Collected: 01/27/2018 Status: F Source: [place] TIME 2:15 PM [facility] REPOSITORY TYPE CODE TESTS RESULT OUT OF REFERENCE UNITS RANGE LAB L300.4310 24.1-36.2 Seconds High PTT 37.8 Performed By: #### L300.3900, L300.4310 #### [facility] [address] [place], [address] CBC W/DIFF, AUTOMATED Collected: 01/27/2018 Status: F Source: [place] 2:15 PM [facility] REPOSITORY TYPE CODE TESTS RESULT OUT OF RANGE REFERENCE UNITS LAB L100.1000 4.4-11.0 K/mm3 Normal WBC 9.3 LAB L100.1200 4.2-5.4 M/mm3 Low RBC 3.60 LAB L100.1300 12.0-15.0 g/dl Low HGB 10.1 LAB L100.1400 37-47 % Low HCT 28.0 LAB L100.1500 81-99 fL Low MCV 77.8 LAB L100.1600 27.0-32.0 pg Normal MCH 28.1 LAB L100.1700 32-36 g/gl High MCHC 36.1 LAB L100.1810 11.6-14.6 % Normal RDW CV 13.9 LAB L100.1820 35.1-43.9 fl Normal RDW SD 37.9 LAB L100.1900 150-450 K/mm3 Normal PLT 163 LAB L100.2000 6.2-12.0 fl High MPV 12.3 LAB L100.2100 47-70 % High NEUT% 89.0 LAB L100.2200 19-41 % Low LY% 3.8 LAB L100.2300 0-10 % Normal MONO% 5.3 LAB L100.2400 0-5 % Normal EO% 0.2 LAB L100.2500 0-1 % Normal BASO% 0.1 LAB L100.2550 0.0-0.9 % High IM GRAN % 1.600 Result Comment: IG% - Immature Granulocytes (promyelocytes, myelocytes and metamyelocytes) > 1% indicates that a LEFT SHIFT is Present. LAB L100.2620 2.0-7.7 X10 3/uL Absolute Neut High 8.3 LAB L100.2720 0.83-4.51 X10 3/ul Low Absolute Lymph 0.35 LAB L100.5500 ADEQ PLT EST Normal ADEQUATE LAB L100.5650 PLT MORPH Normal LARGE LAB L100.7600 HYPOCHROMASIA Normal 1+ LAB L100.7700 MICROCYTES Normal 1+ Performed By: #### L100.0100 #### [facility] [address] [place], [address] CHEST 1 VIEW Observed: 01/27/2018 Status: F Source: [place] (PORTABLE) 2:15 PM [facility] REPOSITORY [facility] Imaging Services [address] [place] [address] Chest 1 View (Portable) MR#: [id number] Acct: [id number] Name: BERTRAM AMBROSE Rep #: [id number] : 1980 F 37 From: Roger Griffith MD PCP: Aster Martin MD Status: REG ER Study: Chest 1 View (Portable) Date of Exam: 01/27/18 Exam# [id number] Ordering Dr: Dwight Elam DO STUDY: X-RAY CHEST REASON FOR EXAM: Female, 37 years old. Cough, fever and shortness of breath. TECHNIQUE: Single AP portable view of the chest. COMPARISON: None. FINDINGS: EKG electrodes are seen. Infiltration is seen in the right upper lobe as well as in the left upper lobe and lingular segment of the left upper lobe. There is no demonstrated pleural abnormality. Normal size heart. Normal mediastinum and yue. Normal visualized pulmonary arteries. Normal visualized aortic arch and descending thoracic aorta. Normal visualized thoracic spine. Normal visualized ribs, clavicles, and shoulders. There is no demonstrated abnormality of the visualized soft tissue structures of the upper abdomen. RAD/Chest 1 View (Portable) IMPRESSION: Bilateral pulmonary infiltrates. Electronically Signed: Roger Griffith MD at 15:08 EDT Tel [phone], Service support , CC: Dwight Elam DO; Aster Martin MD Newspaper Photojournalist: Signed COMPREHENSIVE METABOLIC Collected: 01/27/2018 Status: F Source: [place] 2:15 PM [facility] REPOSITORY TYPE CODE TESTS RESULT OUT OF RANGE REFERENCE UNITS LAB L501.0100 74-106 mg/dL High GLU 112 Result Comment: Fasting Glucose result from 100 to 125 mg/dL suggests IMPAIRED HOMEOSTASIS per A.D.A. criteria. Please note revised GLUCOSE reference range effective 2017. LAB L501.1000 7-18 mg/dL High BUN 40 LAB L501.1100 0.55-1.02 mg/dL High CREAT,SERUM 3.96 Result Comment: The validity of the calculated GFR AND GFRAA in patients over 70 years has not been determined. Clinical correlation is essential. LAB L501.1110 >60 mL/min Low EST GFR 13 Result Comment: Non- GFR Calc LAB L501.1115 >60 mL/min Low EST GFR - AA 16 Result Comment: GFR Calc LAB L501.1255 ml/min Normal Estimated CRCL 17.86 LAB L501.1300 10-20 RATIO Normal BUN/CRE 10.1 LAB L501.1500 6.4-8. g/dL Normal 2 T PROT 7.9 LAB L501.1800 3.2-5. g/dL Low 0 ALB 2.4 LAB L501.1950 2.2-4. g/dL High 2 GLOB 5.5 LAB L501.2000 0.9-2. RATIO Low 4 A/G 0.4 LAB L501.2200 8.5-10 mg/dL Normal .1 CA 9.5 LAB L501.4100 15-37 U/L High AST 43 Result Comment: Moderate Hemolysis, Result may be falsely increased. LAB L501.4305 45-117 U/L Normal ALK P 61 LAB L501.4405 13-56 U/L Normal ALT 14 LAB L501.4600 0.20-1.00 mg/dL Normal T BILI 1.00 LAB L501.5300 136-145 mmol/L Low NA 132 LAB L501.5600 3.5-5.1 mmol/L High K 5.7 Result Comment: Moderate Hemolysis, Result may be falsely increased. LAB L501.5900 98-107 mmol/L Normal CL 101 LAB L501.6100 21.0-32.0 mmol/L Low CO2 20.0 LAB L501.6200 5-15 Normal GAP 11 Performed By: #### L500.4050, L501.4010 #### [facility] [address] [place], [place], [address] TROPONIN-I Collected: 01/27/2018 Status: F Source: [place] 2:15 PM [facility] REPOSITORY TYPE CODE TESTS RESULT OUT OF RANGE REFERENCE UNITS LAB L501.4010 <0.045 ng/mL Normal 0.035 TROPONIN-I Result Comment: TROPONIN-I EXPECTED VALUES <0.045 Negative 0.045 - 0.590 Consistent with Cardiac Damage > OR = 0.600 Critical Value Not every elevated troponin is indicative of CO. These values should be used with clinical judgement in examining the patient's clinical picture for diagnosis. To establish a diagnosis of CO versus myocardial injury, there must be a demonstrated rise and/or fall in the troponin values, in addition to ischemic symptoms, EKG changes, new regional wall motion abnormality, and/or angiographical evidence. PLEASE NOTE: REFERENCE RANGES EDITED 17 Performed By: #### L500.4050, L501.4010 #### [facility] [address] [facility] [place], [place], [address] LACTIC ACID Collected: 01/27/2018 Status: F Source: [place] 2:15 PM [facility] REPOSITORY Order Comment: Yes/No query for Sepsis Lactate Rule Y TYPE CODE TESTS RESULT OUT OF REFERENCE UNITS RANGE LAB L503.6005 0.4-2.0 mmol/L High LACTIC ACID 2.8 Result Comment: Critical Result(s) Called at: 15:45:23 01/27/2018 by: Claire Castillo to [facility] Performed By: #### L503.6005 #### [facility] [address] [place], [address] ACETONE SERUM Collected: 01/27/2018 Status: F Source: [place] 2:15 PM [facility] REPOSITORY TYPE CODE TESTS RESULT OUT OF RANGE REFERENCE UNITS LAB L501.6900 NEG Normal ACETONE SERUM NEGATIVE Performed By: #### L501.6900 #### [facility] [address] [place], [address] Observed: 01/27/2018 Status: F Source: [place] CULTURE, BLOOD (WB) 2:15 PM [facility] REPOSITORY BC No growth in 5 days. Performed By: #### M200.1000 #### [facility] [address] [place], [address] BEDSIDE GLUCOSE Collected: 01/27/2018 Status: F Source: [place] 1:49 PM [facility] REPOSITORY TYPE CODE TESTS RESULT OUT OF REFERENCE UNITS RANGE LAB L501.080 70-110 mg/dL High BEDSIDE GLU 112 Result Comment: MANAGEMENT OF PATIENT CARE PER NURSING PROTOCOL Performed By: #### L501.080 #### [facility] Point of Care [address] [place] [address] DISCHARGE SUMMARY Observed: 01/23/2018 Status: F Source: [place] 5:54 PM [facility] REPOSITORY [facility] Medical Records Department [address] [facility] [place] [address] Discharge Summary 01/22/18 1118 MR#: [id number] Acct: [id number] Name: BERTRAM AMBROSE I Rep #: [id number] : 1980 37 From: Sindhu Sen MD PCP: Care Physician, No Primary Status: DIS IN Y Location: [address] Discharge Date and Diagnosis Date of Admission: 01/20/18 Date of Discharge: 01/22/18 - Primary Discharge Diagnosis Active and Suspected Problems Hyperglycemia without ketosis (Acute) Acute back pain, musculoskeletal - Secondary Discharge Diagnosis Chronic Problems Hyperglycemia due to type 1 diabetes mellitus (Chronic) DM type 1 (diabetes mellitus, type 1) (Chronic) 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 Correlation with ultrasound is recommended. Atrophy of the tunica-biloxi kidneys. A transplanted kidney is seen in the right lower abdomen. Electronically Signed: Roger Griffith MD at 12:26 EDT Tel [phone], Service support , None Operations: None Procedures: None Summary of Care Provided: 37 year old F with past medical history of type I DM(diabetic since age 10) status post kidney transplant, being managed by [facility], on Lantus 32 units daily, NovoLog 10-15 units 3 times daily. She is s/p kidney transplant in 2011, missed a couple of doses of her Lantus, comes in with hyperglycemia, lethargy and complains of severe back pain. 1. Acute HHS, resolved, blood sugars were better controlled with short term IV insulin, later resumed on her home regimen, prescriptions given for home Lantus and lispro. 2. Type I DM, complicated by retinopathy, neuropathy and vascular complications status post TMA, HbA1c is 12.3, managed as above. 3. Hypertension, controlled, on carvedilol, nifedipine 4. CKD stage 3, status post kidney transplant, on post transplant medications 5. Back pain, likely muscleskeletal, managed on Tylenol, trial of Flexeril, oxycodone Discharge Diet: Low fat/ Low Cholesterol, 2000 mg Sodium Diet, Carb Control Diet, Renal Diet Discharge Activity: Return to Normal Activity Home Medications: Medications to take at Discharge Albuterol Sulfate [Proair Hfa] 2 puff INHALATION Q6H PRN PRN 01/20/18 Carvedilol [Coreg] 25 mg PO BID 01/20/18 Diphenhydramine HCl [Benadryl Allergy] 25 mg PO QODAY 01/20/18 Famotidine [Pepcid] 20 mg PO BID 01/20/18 Fluticasone 0.05% [Flonase Nasal [place]] 2 spray NASAL DAILY 01/20/18 Gabapentin [Neurontin] 300 mg PO Q12H 01/20/18 Mycophenolate Mofetil 500 mg PO BID 01/20/18 Nifedipine [Nifedipine ER] 60 mg PO BID 01/20/18 Ondansetron HCl [Zofran] 4 mg PO Q8H PRN PRN 01/20/18 Oxycodone HCl [Roxicodone] 5 mg PO BID 01/20/18 Pravastatin [Pravachol] 40 mg PO QHS 01/20/18 Prednisone 5 mg PO DAILY 01/20/18 Tacrolimus Anhydrous [Prograf] 1 mg PO BID 01/20/18 Zolpidem Tartrate [Ambien] 10 mg PO QHS 01/20/18 Acetaminophen [Tylenol Tablet] 650 mg PO Q6H PRN PRN tablet 01/22/18 Cyclobenzaprine [Flexeril] 10 mg PO TID PRN #10 tab 01/22/18 Insulin Aspart [Novolog Flexpen] 10 - 15 units SC TIDCM #1 flexpen 01/22/18 Insulin Detemir [Levemir] 32 unit SQ DAILY #1 vial 01/22/18 Following Prescrptions Were Given to Patient: Insulin Detemir [Levemir] 32 unit SQ DAILY #1 vial Cyclobenzaprine [Flexeril] 10 mg PO TID PRN #10 tab PRN Reason: Severe Pain (-03/12) Insulin Aspart [Novolog Flexpen] 10 - 15 units SC TIDCM #1 flexpen Primary Care Physician: Care Physician,No Primary [Primary Care Provider] - Please follow up with your Primary Care Physician in: within 1-2 weeks When: Plasterer Apprentice - make appointment within 2 weeks When: Jet Aircraft Servicer -make appointment within 2 weeks Disposition: Home Minutes spent on discharge:: 45 Patient Condition:: Stable Medical Necessity - Tobacco Use Smoking Status: Never smoker Tobacco Use: Non-smoker Meaningful Use Info Meaningful Use Diagnoses (Choose all that apply): None applicable Code Visit Inpatient E AND M: 37201 Disch Hosp 01/23/18 1754 <Electronically signed by Sindhu Sen MD> Date Sindhu Sen MD Cosigner Signature (if applicable): Date CC: No Primary Care Physician; Sindhu Sen MD Signed 12 LEAD ELECTROCARDIOGRAM Observed: 01/23/2018 Status: F Source: [place] 1:29 PM [facility] REPOSITORY [facility] Cardiovascular Services [address] [place] [address] 12 Lead EKG 01/20/18 1447 MR#: [id number] Acct: [id number] Name: BERTRAM AMBROSE I Rep #: [id number] : 1980 37 From: Garcia Almaguer MD Attending Dr: Sindhu Sen MD Status: DIS IN Ordering Dr: Hamilton Yarbrough MD Date: 01/20/18 Location: [facility] Sex: F AA Admitted: 01/20/18 Test Reason : Blood Pressure : / mmHG Vent. Rate : 082 BPM Atrial Rate : 082 BPM P-R Int : 152 ms QRS Dur : 082 ms QT Int : 404 ms P-R-T Axes : 068 041 146 degrees QTc Int : 472 ms Normal sinus rhythm Biatrial enlargement ST AND T wave abnormality, consider inferolateral ischemia Prolonged QT Poor R wave progression Septal CO, age undetermined, cannot be excluded Abnormal ECG Confirmed by DONAVON GROSSMAN, GARCIA ([id number]), technical writer and editor ASIM BENITEZ ([id number]) on 01/23/2018 1:29:28 PM Referred By: JACKELYN Confirmed By:GARCIA ALMAGUER MD 01/23/18 1329 Date Garcia Almaguer MD CC: No Primary Care Physician; Sindhu Sen MD; Hamilton Yarbrough MD Signed BEDSIDE GLUCOSE Collected: 01/22/2018 Status: F Source: [place] 12:44 PM [facility] REPOSITORY TYPE CODE TESTS RESULT OUT OF REFERENCE UNITS RANGE LAB L501.080 70-110 mg/dL High BEDSIDE GLU 148 Result Comment: MANAGEMENT OF PATIENT CARE PER NURSING PROTOCOL Performed By: #### L501.080 #### [facility] Point of Care [address] [place] [address] BEDSIDE GLUCOSE Collected: 01/22/2018 Status: F Source: [place] 12:04 PM [facility] REPOSITORY TYPE CODE TESTS RESULT OUT OF REFERENCE UNITS RANGE LAB L501.080 70-110 mg/dL Low BEDSIDE GLU 47 Result Comment: MANAGEMENT OF PATIENT CARE PER NURSING PROTOCOL Performed By: #### L501.080 #### [facility] Point of Care [address] [place] [address] DISCHARGE INSTRUCTION Observed: 01/22/2018 Status: F Source: [place] 11:18 AM [facility] REPOSITORY [facility] Medical Records Department [address] [place] [address] Instructions for Home/Discharge Instructions 01/22/18 1115 MR#: [id number] Acct: [id number] Name: BERTRAM AMBROSE I Rep #: [id number] : 1980 37 From: Sindhu Sen MD PCP: Care Physician, No Primary Status: ADM IN 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) Reason(s) for Visit for Discharge Instructions: Hyperglycemia, Acute kidney injury on Chronic kidney disease You will use the following diet at home:: Calorie/Carbohydrate Controlled (specify 1200, 1400, etc), Renal (restricted protein/sodium) Your food should be the consistency of: Regular Your liquids should be the consistency of: Regular/Thin Discharge Activity: Return to Normal Activity Allergies/Adverse Reactions: Allergies furosemide [From Lasix] Allergy (Verified 01/20/18 14:16) Hives Medications to take at Discharge Albuterol Sulfate [Proair Hfa] 2 puff INHALATION Q6H PRN PRN 01/20/18 Carvedilol [Coreg] 25 mg PO BID 01/20/18 Diphenhydramine HCl [Benadryl Allergy] 25 mg PO QODAY 01/20/18 Famotidine [Pepcid] 20 mg PO BID 01/20/18 Fluticasone 0.05% [Flonase Nasal [place]] 2 spray NASAL DAILY 01/20/18 Gabapentin [Neurontin] 300 mg PO Q12H 01/20/18 Insulin Aspart [Novolog Flexpen] 10 - 15 units SC TIDCM 01/20/18 Insulin Glargine,Hum.rec.anlog [Lantus Solostar] 32 unit SQ QHS 01/20/18 Mycophenolate Mofetil 500 mg PO BID 01/20/18 Nifedipine [Nifedipine ER] 60 mg PO BID 01/20/18 Ondansetron HCl [Zofran] 4 mg PO Q8H PRN PRN 01/20/18 Oxycodone HCl [Roxicodone] 5 mg PO BID 01/20/18 Pravastatin [Pravachol] 40 mg PO QHS 01/20/18 Prednisone 5 mg PO DAILY 01/20/18 Tacrolimus Anhydrous [Prograf] 1 mg PO BID 01/20/18 Zolpidem Tartrate [Ambien] 10 mg PO QHS 01/20/18 Acetaminophen [Tylenol Tablet] 650 mg PO Q6H PRN PRN tablet 01/22/18 Cyclobenzaprine [Flexeril] 10 mg PO TID PRN #10 tab 01/22/18 The following prescriptions were given: Cyclobenzaprine [Flexeril] 10 mg PO TID PRN #10 tab PRN Reason: Severe Pain (6-/) Orders to be completed after discharge: Basic Metabolic Profile (BMP) Time Frame: 1 Week, Location: Laboratory CBC W/Diff, Automated Time Frame: 1 Week, Location: Laboratory Primary Care Physician: Care Physician,No Primary [Primary Care Provider] - Please follow up with your Primary Care Physician in: within 1-2 weeks Test Results: Test results from this visit will be discussed in further detail at your follow-up appointment, if applicable. When: Plasterer Apprentice - make appointment within 2 weeks When: Jet Aircraft Servicer -make appointment within 2 weeks Proposed Discharge Date: 01/22/18 01/22/18 1118 <Electronically signed by Sindhu Sen MD> Date Sindhu Sen MD CC: No Primary Care Physician BASIC METABOLIC Collected: 01/22/2018 Status: F Source: [place] PROFILE (BMP) 8:45 AM [facility] REPOSITORY TYPE CODE TESTS RESULT OUT OF RANGE REFERENCE UNITS LAB L501.0100 74-106 mg/dL High GLU 141 Result Comment: Fasting Glucose result greater than or equal to 126 mg/dL suggests DIABETES MELLITUS per A.D.A. criteria. Please note revised GLUCOSE reference range effective 2017. LAB L501.1000 7-18 mg/dL Normal BUN 15 LAB L501.1100 0.55-1.02 mg/dL High CREAT,SERUM 1.93 Result Comment: The validity of the calculated GFR AND GFRAA in patients over 70 years has not been determined. Clinical correlation is essential. LAB L501.1110 >60 mL/min Low EST GFR 31 Result Comment: Non- GFR Calc LAB L501.1115 >60 mL/min Low EST GFR - AA 37 Result Comment: GFR Calc LAB L501.1255 ml/min Normal Estimated CRCL 36.64 LAB L501.1300 10-20 RATIO Low BUN/CRE 7.8 LAB L501.2200 8.5-10 mg/dL Low .1 CA 8.4 LAB L501.5300 136-14 mmol/L Normal 5 NA 142 LAB L501.5600 3.5-5. mmol/L Normal 1 K 3.6 LAB L501.5900 98-107 mmol/L High CL 111 LAB L501.6100 21.0-3 mmol/L Normal 2.0 CO2 24.0 LAB L501.6200 5-15 Normal GAP 7 Performed By: #### L500.2500 #### [facility] [address] [place], [place], [id number] BEDSIDE GLUCOSE Collected: 01/22/2018 Status: F Source: [place] 6:50 AM [facility] REPOSITORY TYPE CODE TESTS RESULT OUT OF REFERENCE UNITS RANGE LAB L501.080 70-110 mg/dL High BEDSIDE GLU 140 Result Comment: MANAGEMENT OF PATIENT CARE PER NURSING PROTOCOL Performed By: #### L501.080 #### [facility] Point of Care [address] [place], [place] [id number] BEDSIDE GLUCOSE Collected: 01/21/2018 Status: F Source: [place] 10:04 PM [facility] REPOSITORY TYPE CODE TESTS RESULT OUT OF REFERENCE UNITS RANGE LAB L501.080 70-110 mg/dL High BEDSIDE GLU 116 Result Comment: MANAGEMENT OF PATIENT CARE PER NURSING PROTOCOL Performed By: #### L501.080 #### [facility] Point of Care [address] [place] [address] BEDSIDE GLUCOSE Collected: 01/21/2018 Status: F Source: [place] 4:25 PM [facility] REPOSITORY TYPE CODE TESTS RESULT OUT OF REFERENCE UNITS RANGE LAB L501.080 70-110 mg/dL High BEDSIDE GLU 192 Result Comment: MANAGEMENT OF PATIENT CARE PER NURSING PROTOCOL Performed By: #### L501.080 #### [facility] Point of Care [address] [place] [address] BEDSIDE GLUCOSE Collected: 01/21/2018 Status: F Source: [place] 11:21 AM [facility] REPOSITORY TYPE CODE TESTS RESULT OUT OF REFERENCE UNITS RANGE LAB L501.080 70-110 mg/dL High BEDSIDE GLU 269 Result Comment: MANAGEMENT OF PATIENT CARE PER NURSING PROTOCOL Performed By: #### L501.080 #### [facility] Point of Care [address] [place] [address] ABDOMEN/PELVIS WITHOUT Observed: 01/21/2018 Status: F Source: [place] CONT 10:21 AM [facility] REPOSITORY [facility] Imaging Services [address] [place] [address] Abdomen/Pelvis without Cont MR#: [id number] Acct: [id number] Name: BERTRAM AMBROSE I Rep #: [id number] : 1980 F 37 From: Roger Griffith MD PCP: Care Physician, No Primary Status: ADM IN Study: Abdomen/Pelvis without Cont Date of Exam: 01/21/18 Exam# [id number] Ordering Dr: Sindhu Sen MD STUDY: CT ABDOMEN AND PELVIS WITHOUT CONTRAST REASON FOR EXAM: Female, 37 years old. Low back pain. History of a type I diabetic with a kidney transplant. RADIATION DOSAGE (If Supplied By Facility): CTDIvol = ( 6.04 ) mGy, DLP = ( 314.11 ) mGycm TECHNIQUE: Transaxial images were obtained from the dome of the diaphragm to the symphysis pubis without oral contrast, and without intravenous contrast. Sagittal and coronal images were reconstructed. Individualized dose optimization techniques were used for this CT. COMPARISON: None. FINDINGS: Mild degree of left basilar atelectasis. Coronary artery calcification. Normal liver. Normal gallbladder and extrahepatic biliary system. Normal spleen. Normal pancreas. Normal bilateral adrenal glands. Atrophy of the tunica-biloxi kidneys. A transplanted kidney is seen in the right lower abdomen. Normal visualized stomach. Normal small intestine. Normal colon. The appendix is visualized and appears normal. There is diffuse atherosclerotic calcification of the abdominal aorta and the major visceral branches., without a demonstrated aneurysm. Normal inferior vena cava. Normal retroperitoneum. Normal urinary bladder. There is an 8 cm x 5.9 cm x 4.8 cm cystic structure in the right adnexal area. Correlation with ultrasound is recommended to rule out possible right adnexal cyst versus possible lymphocele. Calcified fibroid uterus. Normal abdominal wall. Loss of the normal lumbar lordosis. CT/Abdomen/Pelvis without Cont IMPRESSION: 8 cm x 5.9 cm x 4.8 stomach cyst structure in the right lower abdomen and pelvis as described. Correlation with ultrasound is recommended. Atrophy of the tunica-biloxi kidneys. A transplanted kidney is seen in the right lower abdomen. Electronically Signed: Roger Griffith MD at 12:26 EDT Tel [phone], Service support , CC: No Primary Care Physician; Sindhu Sen MD Newspaper Photojournalist: Signed BEDSIDE GLUCOSE Collected: 01/21/2018 Status: F Source: [place] 6:45 AM [facility] REPOSITORY TYPE CODE TESTS RESULT OUT OF REFERENCE UNITS RANGE LAB L501.080 70-110 mg/dL High BEDSIDE GLU 276 Result Comment: MANAGEMENT OF PATIENT CARE PER NURSING PROTOCOL Performed By: #### L501.080 #### [facility] Point of Care [address] [place] [address] BASIC METABOLIC Collected: 01/21/2018 Status: F Source: [place] PROFILE (BMP) 5:37 AM [facility] REPOSITORY TYPE CODE TESTS RESULT OUT OF RANGE REFERENCE UNITS LAB L501.0100 74-106 mg/dL High GLU 282 Result Comment: Glucose result greater than or equal to 200 mg/dL suggests DIABETES MELLITUS per A.D.A. criteria. Please note revised GLUCOSE reference range effective 2017. LAB L501.1000 7-18 mg/dL High BUN 21 LAB L501.1100 0.55-1.02 mg/dL High CREAT,SERUM 1.74 Result Comment: The validity of the calculated GFR AND GFRAA in patients over 70 years has not been determined. Clinical correlation is essential. LAB L501.1110 >60 mL/min Low EST GFR 35 Result Comment: Non- GFR Calc LAB L501.1115 >60 mL/min Low EST GFR - AA 42 Result Comment: GFR Calc LAB L501.1255 ml/min Normal Estimated CRCL 40.64 LAB L501.1300 10-20 RATIO Normal BUN/CRE 12.1 LAB L501.2200 8.5-10 mg/dL Normal .1 CA 9.0 LAB L501.5300 136-14 mmol/L Normal 5 NA 141 LAB L501.5600 3.5-5. mmol/L Normal 1 K 4.0 LAB L501.5900 98-107 mmol/L High CL 111 LAB L501.6100 21.0-3 mmol/L Normal 2.0 CO2 21.0 LAB L501.6200 5-15 Normal GAP 9 Performed By: #### L500.2500, L501.5200 #### [facility] [address] [place], [address] MAGNESIUM Collected: 01/21/2018 Status: F Source: [place] 5:37 AM [facility] REPOSITORY TYPE CODE TESTS RESULT OUT OF RANGE REFERENCE UNITS LAB L501.5200 1.6-2.6 mg/dL Normal MG 2.0 Performed By: #### L500.2500, L501.5200 #### [facility] [address] [place], [address] CBC W/DIFF, AUTOMATED Collected: 01/21/2018 Status: F Source: [place] 5:37 AM [facility] REPOSITORY TYPE CODE TESTS RESULT OUT OF RANGE REFERENCE UNITS LAB L100.1000 4.4-11.0 K/mm3 Normal WBC 5.3 LAB L100.1200 4.2-5.4 M/mm3 Low RBC 3.98 LAB L100.1300 12.0-15.0 g/dl Low HGB 10.9 LAB L100.1400 37-47 % Low HCT 32.8 LAB L100.1500 81-99 fL Normal MCV 82.4 LAB L100.1600 27.0-32.0 pg Normal MCH 27.4 LAB L100.1700 32-36 g/gl Normal MCHC 33.2 LAB L100.1810 11.6-14.6 % Normal RDW CV 14.6 LAB L100.1820 35.1-43.9 fl High RDW SD 44.3 LAB L100.1900 150-450 K/mm3 Normal PLT 184 LAB L100.2000 6.2-12.0 fl High MPV 12.1 LAB L100.2100 47-70 % High NEUT% 83.5 LAB L100.2200 19-41 % Low LY% 9.6 LAB L100.2300 0-10 % Normal MONO% 6.7 LAB L100.2400 0-5 % Normal EO% 0.0 LAB L100.2500 0-1 % Normal BASO% 0.2 LAB L100.2550 0.0-0.9 % Normal IM GRAN % 0.000 Result Comment: IG% - Immature Granulocytes (promyelocytes, myelocytes and metamyelocytes) > 1% indicates that a LEFT SHIFT is Present. LAB L100.2620 2.0-7.7 X10 3/uL Normal Absolute Neut 4.5 LAB L100.2720 0.83-4.51 X10 3/ul Low Absolute Lymph 0.51 LAB L100.4500 Normal SMEAR COMMENT SCANNED Performed By: #### L100.0100 #### [facility] [address] [place], [address] BEDSIDE GLUCOSE Collected: 01/20/2018 Status: F Source: [place] 11:54 PM [facility] REPOSITORY TYPE CODE TESTS RESULT OUT OF REFERENCE UNITS RANGE LAB L501.080 70-110 mg/dL High BEDSIDE GLU 280 Result Comment: MANAGEMENT OF PATIENT CARE PER NURSING PROTOCOL Performed By: #### L501.080 #### [facility] Point of Care [address] [place] [address] BEDSIDE GLUCOSE Collected: 01/20/2018 Status: F Source: [place] 9:06 PM [facility] REPOSITORY TYPE CODE TESTS RESULT OUT OF REFERENCE UNITS RANGE LAB L501.080 70-110 mg/dL High BEDSIDE GLU 230 Result Comment: MANAGEMENT OF PATIENT CARE PER NURSING PROTOCOL Performed By: #### L501.080 #### [facility] Point of Care [address] [place] [address] TROPONIN-I Collected: 01/20/2018 Status: F Source: [place] 8:38 PM [facility] REPOSITORY Order Comment: 'TROP' Serial specimen #1, #2 or #3: 3 TYPE CODE TESTS RESULT OUT OF RANGE REFERENCE UNITS LAB L501.4010 <0.045 ng/mL Normal 0.023 TROPONIN-I Result Comment: TROPONIN-I EXPECTED VALUES <0.045 Negative 0.045 - 0.590 Consistent with Cardiac Damage > OR = 0.600 Critical Value Not every elevated troponin is indicative of CO. These values should be used with clinical judgement in examining the patient's clinical picture for diagnosis. To establish a diagnosis of CO versus myocardial injury, there must be a demonstrated rise and/or fall in the troponin values, in addition to ischemic symptoms, EKG changes, new regional wall motion abnormality, and/or angiographical evidence. PLEASE NOTE: REFERENCE RANGES EDITED 17 Performed By: #### L501.4010 #### [facility] [address] [place], [address] BASIC METABOLIC Collected: 01/20/2018 Status: F Source: [place] PROFILE (BMP) 8:38 PM [facility] REPOSITORY Order Comment: Comments: Call with results STAT TYPE CODE TESTS RESULT OUT OF RANGE REFERENCE UNITS LAB L501.0100 74-106 mg/dL High GLU 268 Result Comment: Glucose result greater than or equal to 200 mg/dL suggests DIABETES MELLITUS per A.D.A. criteria. Please note revised GLUCOSE reference range effective 2017. LAB L501.1000 7-18 mg/dL High BUN 23 LAB L501.1100 0.55-1.02 mg/dL High CREAT,SERUM 1.74 Result Comment: The validity of the calculated GFR AND GFRAA in patients over 70 years has not been determined. Clinical correlation is essential. LAB L501.1110 >60 mL/min Low EST GFR 35 Result Comment: Non- GFR Calc LAB L501.1115 >60 mL/min Low EST GFR - AA 42 Result Comment: GFR Calc LAB L501.1255 ml/min Normal Estimated CRCL 40.64 LAB L501.1300 10-20 RATIO Normal BUN/CRE 13.2 LAB L501.2200 8.5-10 mg/dL Normal .1 CA 9.5 LAB L501.5300 136-14 mmol/L Normal 5 NA 140 LAB L501.5600 3.5-5. mmol/L Normal 1 K 3.7 LAB L501.5900 98-107 mmol/L High CL 108 LAB L501.6100 21.0-3 mmol/L Normal 2.0 CO2 23.0 LAB L501.6200 5-15 Normal GAP 9 Performed By: #### L500.2500 #### [facility] [address] [place], [address] BEDSIDE GLUCOSE Collected: 01/20/2018 Status: F Source: [place] 8:06 PM [facility] REPOSITORY TYPE CODE TESTS RESULT OUT OF REFERENCE UNITS RANGE LAB L501.080 70-110 mg/dL High BEDSIDE GLU 254 Result Comment: MANAGEMENT OF PATIENT CARE PER NURSING PROTOCOL Performed By: #### L501.080 #### [facility] Point of Care [address] [place] [address] BEDSIDE GLUCOSE Collected: 01/20/2018 Status: F Source: [place] 7:07 PM [facility] REPOSITORY TYPE CODE TESTS RESULT OUT OF REFERENCE UNITS RANGE LAB L501.080 70-110 mg/dL High BEDSIDE GLU 297 Result Comment: MANAGEMENT OF PATIENT CARE PER NURSING PROTOCOL Performed By: #### L501.080 #### [facility] Point of Care [address] [place] [address] BEDSIDE GLUCOSE Collected: 01/20/2018 Status: F Source: [place] 6:08 PM [facility] REPOSITORY TYPE CODE TESTS RESULT OUT OF REFERENCE UNITS RANGE LAB L501.080 70-110 mg/dL High BEDSIDE GLU 371 Result Comment: MANAGEMENT OF PATIENT CARE PER NURSING PROTOCOL Performed By: #### L501.080 #### [facility] Point of Care [address] [place] [address] HISTORY AND PHYSICAL Observed: 01/20/2018 Status: F Source: [place] EXAM 5:59 PM [facility] REPOSITORY [facility] Medical Records Department [address] [place] [address] History and Physical 01/20/18 1628 MR#: [id number] Acct: [id number] Name: BERTRAM AMBROSE I Rep #: [id number] : 1980 37 From: Sindhu Sen MD PCP: Care Physician, No Primary Status: ADM IN Y Location: [place] [address] ADDENDUM by Sindhu Sen MD on 01/20/18 at 1759 Code Visit Patient has a right TMA 01/20/18 1759 <Electronically signed by Sindhu Sen MD> Date Sindhu Sen MD cc: No Primary Care Physician; Sindhu Sen MD * Signed Problem List (1) Hyperglycemia due to type 1 diabetes mellitus Status: Chronic (2) Hyperglycemia without ketosis Status: Acute (3) DM type 1 (diabetes mellitus, type 1) Status: Chronic Qualifiers: Diabetes mellitus complication status: with neurologic complications Diabetes mellitus complication detail: with unspecified neuropathy Qualified Code(s): E10.40 - Type 1 diabetes mellitus with diabetic neuropathy, unspecified (4) 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 She is s/p kidney transplant in 2011 She had recently moved to the area a couple of weeks ago. Patient is a poor historian, who complains of generalized pain and does not render much information when asked. She says she has been compliant with her medications. States the last time she was admitted was 2 years ago. Denies any fever or chills or dizziness or palpitations. Admits to nausea and vomiting. She has blood sugar per EMS was 544. Sodium was 134, potassium 4.2, chloride was 100, bicarbonate was 20, anion gap was 14, BUN was 27, creatinine was 2.07. She was given 40 units of lispro in the ED. Repeat blood sugar in 30 minutes was more than 500. Patient was started on insulin drip Past Medical History Past Medical History (Chronic Problems): Chronic Problems Hyperglycemia due to type 1 diabetes mellitus (Chronic) DM type 1 (diabetes mellitus, type 1) (Chronic) 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) Allergies furosemide [From Lasix] Allergy (Verified 01/20/18 14:16) Hives Home Medications: Ambulatory Orders Medication Instructions Recorded Albuterol Sulfate [Proair Hfa] 2 puff INHALATION Q6H PRN PRN 01/20/18 Carvedilol [Coreg] 25 mg PO BID 01/20/18 Surgical History: appendectomy, - - Status post kidney transplant, poor wound debridement, diverting sigmoid colostomy on 07/06/2017, reversed on 07/07/2017, percutaneous tracheostomy, no longer has, left TMA Psychiatric History: No pertinent psych hx RATER ASSOCIATE History: No pertinent RATER ASSOCIATE history Lives: With Family Smoking Status: Never smoker Tobacco Use: Non-smoker Alcohol: None Drugs: None - *Family History Maternal History Items: Diabetes, Hypertension Paternal History Items: No pertinent history Review of Systems Constitutional: Reports: Anorexia, Malaise, Weakness. Denies: Chills, Fever, Night Sweats, Weight Change Eyes: Denies: Blurred vision, Cataracts, Conjunctivae Inflammation, Pain, Redness, Vision Change HEENT: Denies: Difficulty Swallowing, Dysphasia, Head Aches, Hearing Changes, Nasal bleeding, Nasal Congestion, Sinus Congestion, Sinus Drainage Cardiovascular: Denies: Chest Pain, Claudication, Chest Pressure, Orthopnea, Palpitations, Paroxysmal Noc. Dyspnea Respiratory: Denies: Cough, Hemoptysis, Pleuritic Pain, Shortness of breath at rest, Shortness of breath upon exertion, Sputum production Gastrointestinal: Denies: Abdominal Pain, Constipation, Hematemesis, Hematochezia, Nausea, Vomiting Genitourinary: Denies: Dysuria, Frequency, Incontinence Musculoskeletal: Reports: Back Pain. Denies: Joint Pain, Joint stiffness, Joint swelling, Joint Tenderness Skin: Denies: Pruritis, Rash, Wounds Neurological: Denies: Numbness, Tingling, Focal weakness Psychiatric: Denies: Anxiety, Depression, Homicidal Ideations, Suicidal Ideations Hematologic/ Lymphatic: Denies: Easy Bruising, Easy Bleeding VTE Information - Inpt Only VTE Present on Admission: No VTE Pharm Prophylaxis ordered?: Yes Patient Problems: Active and Suspected Problems Hyperglycemia without ketosis (Acute) - Physical Exam General: Alert, Oriented x3, Cooperative, Lethargic HEENT: Atraumatic, PERRLA, EOMI, Normocephalic Oral: Dry Mucosa Neck: Supple Lungs: Clear to auscultation, Normal air movement Cardiovascular: Regular rate, Regular Rhythm, Normal S1, Normal S2, No murmurs Abdomen: Bowel Sounds Present, Soft, Non Tender, Non-Distended, No Hepato-splenomegaly Extremities: No edema Skin: - - Skin graft area with contractures Musculoskeletal: No Tenderness to Palpation of Joints or Extremities, - - Left TMA Lymphatic: No Cervical, Supraclavicular, or Inguinal Adenopathy Neurological: Cranial nerves II-XII grossly intact, Neuro grossly intact Psych/Mental Status: Normal Affect, Appropriate Vital Signs Temp Pulse Resp BP Pulse Ox 99.3 F H 81 16 146/78 H 99 01/20/18 14:17 01/20/18 16:10 01/20/18 16:10 01/20/18 16:10 01/20/18 16:10 Assessment/Plan All Active Problems Hyperglycemia without ketosis (Acute) 37 year old F with past medical history of type I DM(diabetic since age 10) status post kidney transplant, being managed by [facility], on Lantus 32 units daily, NovoLog 10-15 units 3 times daily. She is s/p kidney transplant in 2011 1. Acute HHS, no DKA seen, type I diabetic placated by retinopathy, neuropathy, vascular complication(s/p TMA) HbA1c is 12.3 anion gap is 14, started on insulin drip, patient is dehydrated, suspect patient is noncompliant with medications although she states otherwise. Plan: We will admit to PCU, hydrate with IV fluids, continue low insulin drip at 0.05 U/h, will switch to home Lantus with lispro pre-meal blood sugars drop below 250, BMP every hourly whilst on insulin drips but Q4hrly when off insulin drip. 2. Hypertension, controlled, on carvedilol, nifedipine, continue to monitor 3. CKD stage 3, status post kidney transplant, will continue on transplant medication 4. Back pain, likely muscleskeletal, continue on home as needed oxycodone 5. DVT PPx- Heparin SC Code Visit Inpatient E AND M: [id number] Subs Hosp L2 01/20/18 4435 <Electronically signed by Sindhu Sen MD> Date Sindhu Sen MD Cosigner Signature: Date (if applicable) CC: No Primary Care Physician; Sindhu Sen MD Signed BEDSIDE GLUCOSE Collected: 01/20/2018 Status: F Source: [place] 5:12 PM [facility] REPOSITORY TYPE CODE TESTS RESULT OUT OF REFERENCE UNITS RANGE LAB L501.080 70-110 mg/dL High BEDSIDE GLU 421 Result Comment: MANAGEMENT OF PATIENT CARE PER NURSING PROTOCOL Performed By: #### L501.080 #### [facility] Point of Care [address] [place] [address] EMERGENCY DEPARTMENT Observed: 01/20/2018 Status: F Source: [place] SUMMARY 5:08 PM [facility] REPOSITORY [facility] Medical Records Department [address] [place] [address] Emergency Department Summary 01/20/18 1601 MR#: [id number] Acct: [id number] Name: HALIEBERTRAM I Rep #: [id number] : 1980 37 From: Hamilton Yarbrough MD PCP: Care Physician, No Primary Status: ADM IN - ER Visit Summary Date of Service: 01/20/18 Chief Complaint: Back pain History of Present Illness: The patient is a 37 F who gets all of her health care at [facility]. She is a poor informant. She reports that she has back pain that began yesterday and believes this is because she is sleeping on a water bed. Patient also complains of chills. She has been nauseated and vomited 5 times. No blood or emesis. No chest pain, cough, or shortness of breath. No abdominal pain or diarrhea. No dysuria or frequency. She is on her menstrual cycle now. She has generalized weakness. Patient has a complicated past medical history. She has a history of type 1 diabetes mellitus that was diagnosed at 10 years of age. She has had a kidney transplant and toes amputated previously. She also has a history of a colostomy which has been reversed, tracheostomy, and debridement for necrotizing fasciitis. Physical Examination: Vitals: Stable. Afebrile. General: Well-nourished and well-developed. Head: Normocephalic atraumatic. Neck: Supple, no lymphadenopathy. No JVD. Nontender. Cardiovascular: Regular rate and rhythm. No murmurs. Respiratory: No respiratory distress. Clear to auscultation bilaterally. Abdominal: Soft, nontender, nondistended, normal bowel sounds. No guarding, rebound, or peritoneal signs. Back: Mild diffuse tenderness palpation over her lumbar spine the paraspinous muscular and lumbar region Extremities: Nontender, no edema. Skin: Normal color, no rash. Neurologic: Alert and oriented 3. Cranial nerves II through XII are intact. Normal strength and sensation. Psych: Depressed affect. Test Results: EKG is sinus at 82 with a T-wave inversion in lead II. She has LVH with repolarization changes. This is unchanged from EKG obtained from [place] December 172016. CBC is more for an H AND H 11.7 34.8, 7 neutrophils 90, lymphocytes 6. Chem-7 is more for sodium 134, CO2 20, glucose of 556, BUN 27, creatinine 2.07. Of note her last creatinine was 2.83. Serum ketones are negative. ABG shows pH 7.39 with bicarb of 33.7. Hemoglobin A1c is 12.3. Emergency Department Course and Treatment: Patient was given a dose of morphine and Zofran IV. She was given a dose of lispro subcu. Treatment Plan: Patient was discussed with Dr. Sen and she asked that we start the patient on a insulin drip. She will be admitted to the ICU for further evaluation and treatment. Disposition: Admitted in improved condition. Impression: 1. Hyperglycemia. 2. Insulin-dependent diabetes mellitus. 3. Back pain. 4. History of renal transplant. 5. Critical care time 30 minutes. This note was generated with SeeSpaceation software. It may contain incorrect words, spelling, and punctuation that were not noted in review of the chart prior to signing ED Disposition - Plan for ED Patient: Chief Complaint: Hyperglycemia Referrals: Care Physician,No Primary [Primary Care Provider] - What to do if you have Problems For any increased pain, shortness of breath, bleeding, nausea or vomiting, chest pain, or any unexpected problems, contact your Primary Care Provider. Call [facility] ([phone]) or report to the closest Emergency Room. Call 911 if necessary. 01/20/18 1708 <Electronically signed by Hamilton Yarbrough MD> Date Hamilton Yarbrough MD Cosigner Signature (If Indicated): Date CC: No Primary Care Physician BASIC METABOLIC Collected: 01/20/2018 Status: F Source: [place] PROFILE (BMP) 5:05 PM [facility] REPOSITORY Order Comment: Comments: Call MD with results STAT TYPE CODE TESTS RESULT OUT OF RANGE REFERENCE UNITS LAB L501.0100 74-106 mg/dL High alert GLU 455 Result Comment: Critical Result(s) Called Uziel SPENCER at: 18:50:26 01/20/2018 by: LATASHA PINTO Glucose result greater than or equal to 200 mg/dL suggests DIABETES MELLITUS per A.D.A. criteria. Please note revised GLUCOSE reference range effective 2017. LAB L501.1000 7-18 mg/dL High BUN 27 LAB L501.1100 0.55-1.02 mg/dL High CREAT,SERUM 1.96 Result Comment: The validity of the calculated GFR AND GFRAA in patients over 70 years has not been determined. Clinical correlation is essential. LAB L501.1110 >60 mL/min Low EST GFR 30 Result Comment: Non- GFR Calc LAB L501.1115 >60 mL/min Low EST GFR - AA 37 Result Comment: GFR Calc LAB L501.1255 ml/min Normal Estimated CRCL 36.08 LAB L501.1300 10-20 RATIO Normal BUN/CRE 13.8 LAB L501.2200 8.5-10 mg/dL Normal .1 CA 9.4 LAB L501.5300 136-14 mmol/L Normal 5 NA 137 LAB L501.5600 3.5-5. mmol/L Normal 1 K 3.6 LAB L501.5900 98-107 mmol/L Normal CL 106 LAB L501.6100 21.0-3 mmol/L Normal 2.0 CO2 24.0 LAB L501.6200 5-15 Normal GAP 7 Performed By: #### L500.2500 #### [facility] [address] [place], [address] BEDSIDE GLUCOSE Collected: 01/20/2018 Status: F Source: [place] 4:03 PM [facility] REPOSITORY TYPE CODE TESTS RESULT OUT OF REFERENCE UNITS RANGE LAB L501.080 70-110 mg/dL High alert BEDSIDE GLU > 500 Result Comment: MANAGEMENT OF PATIENT CARE PER NURSING PROTOCOL Performed By: #### L501.080 #### [facility] Point of Care [address] [place] [address] BEDSIDE GLUCOSE Collected: 01/20/2018 Status: F Source: [place] 3:15 PM [facility] REPOSITORY TYPE CODE TESTS RESULT OUT OF REFERENCE UNITS RANGE LAB L501.080 70-110 mg/dL High alert BEDSIDE GLU > 500 Result Comment: Repeat Test MANAGEMENT OF PATIENT CARE PER NURSING PROTOCOL Performed By: #### L501.080 #### [facility] Point of Care [address] [place] [address] VENOUS BLOOD GAS Collected: 01/20/2018 Status: F Source: [place] 2:58 PM [facility] REPOSITORY TYPE CODE TESTS RESULT OUT OF RANGE REFERENCE UNITS LAB L9000.9990 Normal BLD GAS TYPE SIDDHARTHA LAB L9001.1104 Normal Results To ED MD LAB L9001.1105 Normal Time Given 1450 LAB L9002.1110 7.32-7.42 Normal VBGpH - 7.39 I-STAT LAB L9002.1212 41-51 mmHg Low VBG pCO2 - 33.7 ISTA LAB L9002.1310 25-40 mmHg High VBG PO2 50 I-STAT LAB L9002.2300 22-26 mmol/L Low VBG HCO3 20 ISTAT LAB L9002.2400 -1.0-3.5 mmol/L Low VBG BE ISTAT -5 LAB L9002.2410 50-70 % High VBG SO2 ISTAT 85 LAB L9002.2415 23-33 mmol/L Low VBG O2 CT 21 ISTAT Performed By: #### L9000.0810 #### [facility] Point of Care [address] [place] [address] CBC W/DIFF, AUTOMATED Collected: 01/20/2018 Status: F Source: [place] 2:20 PM [facility] REPOSITORY TYPE CODE TESTS RESULT OUT OF RANGE REFERENCE UNITS LAB L100.1000 4.4-11.0 K/mm3 Normal WBC 6.5 LAB L100.1200 4.2-5.4 M/mm3 Normal RBC 4.23 LAB L100.1300 12.0-15.0 g/dl Low HGB 11.7 LAB L100.1400 37-47 % Low HCT 34.8 LAB L100.1500 81-99 fL Normal MCV 82.3 LAB L100.1600 27.0-32.0 pg Normal MCH 27.7 LAB L100.1700 32-36 g/gl Normal MCHC 33.6 LAB L100.1810 11.6-14.6 % Normal RDW CV 14.3 LAB L100.1820 35.1-43.9 fl Normal RDW SD 43.2 LAB L100.1900 150-450 K/mm3 Normal PLT 184 LAB L100.2000 6.2-12.0 fl High MPV 12.1 LAB L100.2100 47-70 % High NEUT% 89.8 LAB L100.2200 19-41 % Low LY% 5.9 LAB L100.2300 0-10 % Normal MONO% 3.9 LAB L100.2400 0-5 % Normal EO% 0.2 LAB L100.2500 0-1 % Normal BASO% 0.2 LAB L100.2550 0.0-0.9 % Normal IM GRAN % 0.000 Result Comment: IG% - Immature Granulocytes (promyelocytes, myelocytes and metamyelocytes) > 1% indicates that a LEFT SHIFT is Present. LAB L100.2620 2.0-7.7 X10 3/uL Normal Absolute Neut 5.8 LAB L100.2720 0.83-4.51 X10 3/ul Low Absolute Lymph 0.38 LAB L100.4500 Normal SMEAR COMMENT COMMENT Result Comment: SLIDE SCANNED - LYMPHOPENIA NOTED. Performed By: #### L100.0100 #### [facility] [address] [place], [address] ACETONE SERUM Collected: 01/20/2018 Status: F Source: [place] 2:20 PM [facility] REPOSITORY TYPE CODE TESTS RESULT OUT OF RANGE REFERENCE UNITS LAB L501.6900 NEG Normal ACETONE SERUM NEGATIVE Performed By: #### L501.6900 #### [facility] [address] [place], [address] BASIC METABOLIC Collected: 01/20/2018 Status: F Source: [place] PROFILE (BMP) 2:20 PM [facility] REPOSITORY TYPE CODE TESTS RESULT OUT OF RANGE REFERENCE UNITS LAB L501.0100 74-106 mg/dL High alert GLU 556 Result Comment: Critical Result(s) Called Lizbeth SCHAFFER at: 15:20:13 01/20/2018 by: LATASHA PINTO Glucose result greater than or equal to 200 mg/dL suggests DIABETES MELLITUS per A.D.A. criteria. Please note revised GLUCOSE reference range effective 2017. LAB L501.1000 7-18 mg/dL High BUN 27 LAB L501.1100 0.55-1.02 mg/dL High CREAT,SERUM 2.07 Result Comment: The validity of the calculated GFR AND GFRAA in patients over 70 years has not been determined. Clinical correlation is essential. LAB L501.1110 >60 mL/min Low EST GFR 28 Result Comment: Non- GFR Calc LAB L501.1115 >60 mL/min Low EST GFR - AA 34 Result Comment: GFR Calc LAB L501.1255 ml/min Normal Estimated CRCL 34.16 LAB L501.1300 10-20 RATIO Normal BUN/CRE 13.0 LAB L501.2200 8.5-10 mg/dL Normal .1 CA 10.1 LAB L501.5300 136-14 mmol/L Low 5 NA 134 LAB L501.5600 3.5-5. mmol/L Normal 1 K 4.2 LAB L501.5900 98-107 mmol/L Normal CL 100 LAB L501.6100 21.0-3 mmol/L Low 2.0 CO2 20.0 LAB L501.6200 5-15 Normal GAP 14 Performed By: #### L500.2500 #### [facility] [address] [place], [address] HEMOGLOBIN A1C Collected: 01/20/2018 Status: F Source: [place] 2:20 PM [facility] REPOSITORY TYPE CODE TESTS RESULT OUT OF RANGE REFERENCE UNITS LAB L501.9985 4.2-6.3 % High HGB A1C 12.3 Performed By: #### L501.9985 #### [facility] [address] [place], [address] TROPONIN-I Collected: 01/20/2018 Status: F Source: [place] 2:20 PM [facility] REPOSITORY TYPE CODE TESTS RESULT OUT OF RANGE REFERENCE UNITS LAB L501.4010 <0.045 ng/mL Normal < 0.015 TROPONIN-I Result Comment: TROPONIN-I EXPECTED VALUES <0.045 Negative 0.045 - 0.590 Consistent with Cardiac Damage > OR = 0.600 Critical Value Not every elevated troponin is indicative of CO. These values should be used with clinical judgement in examining the patient's clinical picture for diagnosis. To establish a diagnosis of CO versus myocardial injury, there must be a demonstrated rise and/or fall in the troponin values, in addition to ischemic symptoms, EKG changes, new regional wall motion abnormality, and/or angiographical evidence. PLEASE NOTE: REFERENCE RANGES EDITED 18 Performed By: #### L501.4010 #### [facility] [address] [place], [address] BEDSIDE GLUCOSE Collected: 01/20/2018 Status: F Source: [place] 2:19 PM [facility] REPOSITORY TYPE CODE TESTS RESULT OUT OF REFERENCE UNITS RANGE LAB L501.080 70-110 mg/dL High alert BEDSIDE GLU 497 Result Comment: Dr Kennedy Followed MANAGEMENT OF PATIENT CARE PER NURSING PROTOCOL Performed By: #### L501.080 #### [facility] Point of Care [address] [place] [address] URINALYSIS, COMPLETE Collected: 01/20/2018 Status: F Source: [place] 12:00 AM [facility] REPOSITORY Order Comment: Has pt arrived? Y How was Urine Obtained? CLEAN CATCH TYPE CODE TESTS RESULT OUT OF RANGE REFERENCE UNITS LAB L400.3000 Yellow COLOR Normal Yellow LAB L400.3050 Clear Normal CLARITY Clear LAB L400.3200 Normal mg/dl High GLUCOSE, UR 1000 LAB L400.3300 Negative mg/dL Normal BILIRUBIN URINE Negative LAB L400.3400 Negative mg/dl High 15 KETONE UR LAB L400.3465 1.002-1.030 Normal SP.GR. DIPSTX 1.005 LAB L400.3550 5.0 - 8.0 pH UR Normal 7.0 LAB L400.3600 Negative mg/dl High PROT 30 DIPSTX LAB L400.3700 Normal mg/dl Normal UROBILI Normal LAB L400.3750 Negative Normal NITRITE UR Negative LAB L400.3780 Negative /ul High OCCULT BLOOD-UR 250 LAB L400.3800 Negative /ul LEUK Normal ESTERASE Negative LAB L400.4050 0-5 /hpf WBC 0 Normal SEEN LAB L400.4100 0-5 /hpf Normal RBC-UA 0-5 SEEN LAB L400.4150 5-10 /hpf SQUAM Normal EPI 0-5 SEEN LAB L400.4300 None Seen /hpf Normal BACTERIA RARE LAB L400.4350 <or=2+ /hpf 0 Normal MUCUS, URINE SEEN Performed By: #### L400.0001 #### [facility] [address] [place], [address] ALLERGIES ALLERGIES DATE TYPE / CODE NAME / CODE REACTION SEVERITY SOURCE 06/24/2018 Drug furosemide/F Hives Unknown [facility] Allergy/4160 [id number]([facility] [address]2793(SNOMED NORM) Repository CT) ENCOUNTERS ENCOUNTERS ADMIT/DISCHARGE ACCOUNT ADMITTING ENCOUNTER LOCATION SOURCE NUMBER CLASS 06/24/2018/06/24/19 [id number] Emergency Success Success 19 [facility] ing:ED Repository 04/22/2018 [id number] Ambulatory BMSBuilding:B [place].[facility] Repository 04/15/2018/04/18/20 [id number] Garcia Foss Inpatient [place]le Gay[place] 18 Encounter [facility] ing:PCURoom: Repository [id number]: 1 04/15/2018 [id number] Garcia Foss Ambulatory BMSBuilding:B [place] MS.[facility] Repository 04/15/2018 [id number] Garcia Foss Ambulatory BMSBuilding:B [place] MS.[facility] Repository 04/15/2018 [id number] Garcia Foss Ambulatory BMSBuilding:B [place] MS.[facility] Repository 04/15/2018 [id number] Garcia Foss Ambulatory BMSBuilding:B [place] MS.[facility] Repository 04/07/2018/04/07/20 [id number] Ambulatory BMSBuilding:B [place] 18 MS.[facility] Repository 04/03/2018 [id number] Ambulatory [address] [place] [address] Repository 03/20/2018 [id number] [facility] ing:LAB.FUTUR Repository E 03/11/[id number] Ambulatory [facility] Repository 03/07/2018 [id number] [facility] ing:LAB Repository 03/04/2018/03/04/20 [id number] Ambulatory BMSBuilding:B Success 18 MS.[facility] Repository 02/07/2018 [id number] Ambulatory [address] [place] [address] Repository 01/29/2018/02/07/20 [id number] RYAN, Inpatient UHCBuilding:T [facility] 18 KARIS B Encounter N70Eyix: [facility] [id number]: Repository [id number] 01/27/2018 [id number] Julio Jackson Ambulatory BMSBuilding:B Success MS.[facility] Repository 01/27/2018/01/30/20 [id number] Julio Jackson Inpatient [place] Success 18 Encounter [facility] ing:PT8Wumv: Repository EF970Jhp: 1 01/27/2018 [id number] Julio Jackson Ambulatory BMSBuilding:B Success MS.[facility] Repository 01/27/2018 [id number] Julio Jackson Ambulatory BMSBuilding:B Success MS.[facility] Repository 01/27/2018 [id number] Julio Jackson Ambulatory BMSBuilding:B [place] MS.[facility] Repository 01/27/2018/01/30/20 [id number] Ambulatory BMSBuilding:W [place] 18 [facility] Repository 01/20/2018/01/23/20 [id number] [place] Inpatient Success Success 18 Encounter [facility] ing:PCURoom: Repository [id number]: 1 01/20/2018 [id number] [place] Ambulatory BMSBuilding:B Success MS.[facility] Repository 01/20/2018 [id number] [place] Ambulatory BMSBuilding:B [place] MS.[facility] Repository 01/20/2018 [id number] [place] Ambulatory BMSBuilding:B [place] MS.[facility] Repository PAYERS PAYERS ENCOUNTER GUARANTOR PAYER SUBSCRIBER SOURCE 06/24/2018 BERTRAM [id number] Primary BERTRAM Araujo [facility] Insurance:MEDICARE SILVIAELLDOB: [facility] BPolic [id number] Hospital [address]Kaq: (931) Number: Repository [phone] ) [id number] Date:2018-06-24 06/24/2018 Secondary NOT GIVENUNK [place] Insurance:SELF PAY [facility] Number: Effective Repository Date:2018-06-24 04/22/2018 BERTRAM FLAHERTY7 Primary BERTRAM Araujo [facility] Insurance:MEDICARE HARVELLDOB: [address] PART A [facility] [id number] Hospital [address]Zip: (931) Number: Repository [phone] () [id number] Date:2018-04-22 04/22/2018 Secondary NOT GIVENUNK [place] Insurance:SELF PAY [facility] Number: Effective Repository Date:2018-04-22 04/15/2018 BERTRAM FLAHERTY7 Primary [facility]TRAM Arau[facility] Insurance:MEDICARE HARVELLDOB: [address] PART A [facility] [id number] Hospital [address]Oam: (931) Number: Repository [phone] () [id number] Date:2018-04-15 04/15/2018 Secondary NOT GIVENUNK [place] Insurance:SELF PAY [facility] Number: Effective Repository Date:2018-04-15 04/15/2018 BERTRAM FLAHERTY7 Primary [facility]ERTRAM Araujo [facility] Insurance:MEDICARE HARVELLDOB: [address] PART A [facility] [id number] Hospital [address]Uni: (931) Number: Repository [phone] () [id number] Date:2018-04-15 04/15/2018 Secondary NOT GIVENUNK [place] Insurance:SELF PAY [facility] Number: Effective Repository Date:2018-04-15 04/15/2018 BERTRAM FLAHERTY7 Primary BERTRAM Araujo [facility] Insurance:MEDICARE HARVELLDOB: [address] PART A [facility] [id number] Hospital [address]Ncb: (931) Number: Repository [phone] () [id number] Date:2018-04-15 04/15/2018 Secondary NOT GIVENUNK [place] Insurance:SELF PAY [facility] Number: Effective Repository Date:2018-04-15 04/15/2018 BERTRAM [id number] Primary BERTRAM Araujo [facility] Insurance:MEDICARE HARVELLDOB: Community [address] [place], [place] [address] PART A [facility] [id number] Hospital [address]Wev: (931) Number: Repository [phone] () [id number] Date:2018-04-15 04/15/2018 Secondary NOT GIVENUNK [place] Insurance:SELF PAY [facility] Number: Effective Repository Date:2018-04-15 04/15/2018 BERTRAM [id number] Primary [facility] Insurance:MEDICARE HARVELLDOB: [address] PART A [facility] [id number] Hospital [address]Qdz: (931) Number: Repository [phone] () [id number] Date:2018-04-15 04/15/2018 Secondary NOT GIVENUNK [place] Insurance:SELF PAY [facility] Number: Effective Repository Date:2018-04-15 04/07/2018 BERTRAM VEGAELL[address] [place] Insurance:MEDICARE HARVELLDOB: Community [address]Gch: (931) PART A [facility] [id number] Hospital [phone] () Number: Repository [id number] Date:2018-03-04 04/07/2018 Secondary NOT GIVENUNK Success Insurance:SELF PAY [facility] Number: Effective Repository Date:2018-04-07 04/03/2018 BERTRAM VEGAELLDOB: Primary [facility] [id number] Insurance:Self [facility]: [facility] Number: [id number] Repository [place], [place] n/aEffective 0 SAIM[place] [id number]: (216) Date:Plan Name:[facility] [phone] () [place] [phone]: () 03/20/2018 BERTRAM AMBROSE[address] Primary [place] Insurance:MEDICARE HARVELLDOB: Community [id number]: (931) PART A [facility] [id number] Hospital [phone] () Number: Repository [id number] Date:2018-03-20 03/20/2018 Secondary NOT GIVENUNK [place] Insurance:SELF PAY Community [facility] Number: Effective Repository Date:2018-03-20 03/11/2018 BERTRAM SILVIAELLDOB: Primary [facility] Insurance:MedicarePol [facility]LLDOB: [facility] icy Number: [id number] Repository [place], [place] [id number] 0 [place] [id number]: (216) Date:9881-09-54Oyqx [facility], [phone] (HP) Name:Paulo Martinez [place] [phone]: (HP) 03/11/2018 Secondary [facility] Insurance:MedicarePol HARVELLDOB: [facility] icy Number: [id number] Repository [id number] 0 [place] Date:1943-75-97Kvss [facility], Name:Paulo Lewis [place] [phone]: (HP) 03/07/2018 BERTRAMMicehlle [id number] Primary [place] Insurance:MEDICARE HARVELLDOB: Community [address]Tmm: (931) PART A [facility] [id number] Hospital [id number] () Number: Repository [id number] Date:2018-03-07 03/07/2018 Secondary NOT GIVENUNK Success Insurance:SELF PAY Community [facility] Number: Effective Repository Date:2018-03-07 03/04/2018 BERTRAM T [id number] S Primary BERTRAM T Success [place] Insurance:MEDICARE HARVELLDOB: Community [address]Qav: (931) PART A [facility] [id number] Hospital [id number] () Number: Repository [id number] Date:2018-02-21 03/04/2018 Secondary NOT GIVENUNK Success Insurance:SELF PAY Community [facility] Number: Effective Repository Date:2018-03-04 02/07/2018 BERTRAM HU HU [facility] HOSPITALKATIDOB: Primary [facility] Insurance:MedicarePol HARVELLDOB: [facility] icy Number: [id number] Repository [place], [place] [id number] 0 [place]IM[place] [id number]: (216) Date:9381-29-44Kgxo [facility] [phone] () Name:Paulo Lewis [place] [id number]: (HP) 01/29/2018 BERTRAM HARVELLDOB: Primary [facility] Insurance:MedicarePol HARVELLDOB: [facility] icy Number: [id number] Repository [place], [place] [id number] 0 [place] [id number]: (216) Date:9040-23-23Nlhr [facility] [phone] (HP) Name:Paulo Martinez RENÉ [id number]: (HP) 01/29/2018 Secondary [facility] Insurance:MedicarePol [facility]ALELLDOB: [facility] icy Number: [id number] Repository [id number] 0 [place] Date:4250-04-18Klrd [facility], Name:Paulo Lewis RENÉ [id number]: (HP) 01/27/2018 BERTRAM T [id number] Primary B[facility]TRAM T [place] [facility] [place] Insurance:MEDICARE HARVELLDOB: Community [address]Pno: (931) PART A [facility] [id number] () Number: Repository [id number] Date:2018-01-27 01/27/2018 Secondary NOT GIVENUNK [place] Insurance:SELF PAY [facility]: Effective Repository Date:2018-01-27 01/27/2018 BERTRAM T [id number] S Primary BERTRAM T [place] [facility] [facility] [place] Insurance:MEDICARE HARVELLDOB: Community [address]Dbb: (931) PART A [facility] [id number] Hospital [id number] () Number: Repository [id number] Date:2018-01-27 01/27/2018 Secondary NOT GIVENUNK [place] Insurance:SELF PAY [facility] Number: Effective Repository Date:2018-01-27 01/27/2018 BERTRAM T [id number] Primary [place]AM T [place] Insurance:MEDICARE HARVELLDOB: Community [address]Fvs: (931) PART A [facility] [id number] Hospital [id number] () Number: Repository [id number] Date:2018-01-27 01/27/2018 Secondary NOT GIVENUNK [place] Insurance:SELF PAY [facility] Number: Effective Repository Date:2018-01-27 01/27/2018 BERTRAM MONTESINOS S Primary [place] T [place] Insurance:MEDICARE HARVELLDOB: Community [address]Dqi: (931) PART A [facility] [id number] Hospital [id number] () Number: Repository [id number] Date:2018-01-27 01/27/2018 Secondary NOT GIVENUNK [place] Insurance:SELF PAY [facility] Number: Effective Repository Date:2018-01-27 01/27/2018 BERTRAM MONTESINOS S Primary [place]TRAM T [place] Insurance:MEDICARE HARVELLDOB: Community [id number]: (931) PART A [facility] [id number] () Number: Repository [id number] Date:2018-01-27 01/27/2018 Secondary NOT GIVENUNK Success Insurance:SELF PAY [facility] Number: Effective Repository Date:2018-01-27 01/27/2018 BERTRAM MONTESINOS S Primary [place]TRAM T [place] [place] Insurance:MEDICARE HARVELLDOB: Community [address]Mgt: (931) PART A [facility] [id number] Hospital [id number] () Number: Repository [id number] Date:2018-01-27 01/27/2018 Secondary NOT GIVENUNK [place] Insurance:SELF PAY [facility] Number: Effective Repository Date:2018-01-27 01/20/2018 BERTRAM AMBROSE[address] Primary [place]TRAM I [place] Insurance:MEDICARE HARVELLDOB: Community [address]Wbp: (931) PART A [facility] [id number] () Number: Repository [id number] Date:2018-01-20 01/20/2018 Secondary NOT GIVENUNK [place] Insurance:SELF PAY [facility] Number: Effective Repository Date:2018-01-20 01/20/2018 BERTRAM MONTESINOS S Primary BERTRAM I [place] [facility] [place] Insurance:MEDICARE HARVELLDOB: Community [address]Rmk: (931) PART A [facility] [id number] () Number: Repository [id number] Date:2018-01-20 01/20/2018 Secondary NOT GIVENUNK [place] Insurance:SELF PAY [facility] Number: Effective Repository Date:2018-01-20 01/20/2018 BERTRAM AMBROSE[address] S Primary BERTRAM I Success [address] [facility], [place] Insurance:MEDICARE HARVELLDOB: Community [address]Jve: (931) PART A [facility] [id number] () Number: Repository [id number] Date:2018-01-20 01/20/2018 Secondary NOT GIVENUNK [place] Insurance:SELF PAY [facility] Number: Effective Repository Date:2018-01-20 01/20/2018 BERTRAM AMBROSE[address] Primary BERTRAM I Success [address] [facility], [place] Insurance:MEDICARE HARVELLDOB: Community [address]Puv: (931) PART A [facility] [id number] () Number: Repository [id number] Date:2018-01-20 01/20/2018 Secondary NOT GIVENUNK [place] Insurance:SELF PAY [facility] Number: Effective Repository Date:2018-01-20
== END 2018-06-24 22:57 | disposition home or self-care (01) ==
PROVIDERS: Emergency Provider Emergency Medicine; Family Provider Internal Medicine; PCP Internal Medicine
DX: S62.653A Nondisplaced fracture of middle phalanx of left middle finger, initial encounter for closed fracture (principal); W01.0XXA Fall on same level from slipping, tripping and stumbling without subsequent striking against object, initial encounter; Y93.89 Activity, other specified; Y92.000 Kitchen of unspecified non-institutional (private) residence as the place of occurrence of the external cause; Y99.8 Other external cause status
CPT/HCPCS: 73130; 96372; 99284

== ENCOUNTER 2018-07-09 09:01 | Day surgery (SDC) | payer MEDICARE, SELFPAY ==
[2018-07-08 11:16] VITALS: BMI 29.9
[2018-07-08 13:29] LABS: Hematocrit 40.3 % (37-47); Mean Corp Hgb Conc 32.3 g/gl (32-36); Mean Corpuscular Hgb 27.9 pg (27.0-32.0); Mean Corpuscular Volume 86.5 fL (81-99); Mean Platelet Vol. 11.7 fl (6.2-12.0); Platelet Count 174 K/mm3 (150-450); RBC Distribution Width CV 15.9 % (11.6-14.6); RBC Distribution Width SD 50.1 fl (35.1-43.9); Red Blood Count 4.66 M/mm3 (4.2-5.4); White Blood Count 6.3 K/mm3 (4.4-11.0)
[2018-07-08 13:30] LABS: Scan Indicated on CBC? Y/N NO
[2018-07-08 13:49] LABS: Albumin, Serum 3.9 g/dL (3.2-5.0); BUN 29 mg/dL (7-18); BUN/Creat Ratio 13.5 RATIO (10-20); Calcium,Total 8.8 mg/dL (8.5-10.1); Chloride 110 mmol/L (98-107); Creatinine, Serum 2.15 mg/dL (0.55-1.02); EST Glomerular Filtration Rate 27 mL/min (>60); Est Glom Filt Rate - Afr Amer 33 mL/min (>60); Glucose 223 mg/dL (74-106); Phosphorus 2.6 mg/dL (2.5-4.9); Potassium 4.8 mmol/L (3.5-5.1); Sodium Level 137 mmol/L (136-145)
[2018-07-08 13:49] LABS: Hemoglobin A1c 8.5 % (4.2-6.3)
[2018-07-08 14:00] LABS: Vitamin D,25 Hydroxy 22.8 ng/mL (29.95-100.01)
[2018-07-08 14:10] LABS: Microalbumin:Creatinine Ratio 949.1 mg/g CRE (<30 mg/g CRE); Protein, Urine (Random) 119.5 mg/dL (<11.9); Protein:Creat Ratio 1383 mg/g CRE (0-200)
[2018-07-08 14:13] LABS: PTHIN 274.5 pg/mL (18.4-80.1)
[2018-07-09 09:35] VITALS: BP 146/77; PULSE 71; RESP 18; TEMP 36.1; O2SAT 100; BMI 29.0
[2018-07-09 09:52] LABS: Bedside Glucose 66 mg/dL (70-110)
--- NOTE | 2018-07-09 10:36 | EKG12_ITS ---
Test Reason : PRE-OP Blood Pressure : / mmHG Vent. Rate : 069 BPM Atrial Rate : 069 BPM P-R Int : 172 ms QRS Dur : 072 ms QT Int : 408 ms P-R-T Axes : 070 041 106 degrees QTc Int : 437 ms Normal sinus rhythm Septal infarct , age undetermined T wave abnormality, consider lateral ischemia Abnormal ECG When compared with ECG of 15-APR-2018 03:48, ST no longer depressed in Inferior leads T wave inversion less evident in Lateral leads Confirmed by DONTE GROSSMAN, ALESSANDRO ([id number]), graphic editor ASIM BENITEZ ([id number]) on 07/14/2018 11:29:28 AM Referred By: Aldo Martins Confirmed By:ALESSANDRO KENT MD
--- NOTE | 2018-07-09 11:10 | RAD_ITS ---
STUDY: X-RAY - LEFT HAND, ATTENTION THIRD FINGER REASON FOR EXAM: Reduction and pinning of left middle finger. TECHNIQUE: 3 intraoperative views view(s) of the finger were obtained. COMPARISON: Radiographs 06/24/2018. FINDINGS: There is operative reduction and pinning of the middle phalanx of the third finger with the fracture fragments in anatomical alignment and position. 39 seconds of fluoroscopy time was used. Electronically Signed: Kingsley Ulloa MD at 16:03 EST Tel , Service support , RAD/Finger(s) Min 2 Views
[2018-07-09] MEDS: Cefazolin 2 GM in 0.9% Normal Saline 100 ML IV (12:45)
--- NOTE | 2018-07-09 13:30 | PCM.DC.ORTHO ---
Ice area for (Minutes): 15 Lifting Restrictions: yes Additional Activity Instructions:: Do not lift push or pull anything with the operative hand. Keep the dressing on clean and dry. Keep the hand elevated higher than the heart for the next 72 hours with ice 15 minutes on and 15 minutes off throughout the day. Avoid bending and flexing the operative digit avoid bumping the operative digit. If dressing becomes loose please call the office for a sooner first appointment. Call your doctor if you observe: Shortness of breath, Chest pain Additional Instructions: Use pain medication that has already been provided if issue with this let Dr. Martins office know Allergies/Adverse Reactions: Allergies furosemide [From Lasix] Allergy (Verified 07/08/18 11:16) Hives Medications to take at Discharge Carvedilol [Coreg] 25 mg PO BID 01/20/18 Fluticasone 0.05% [Flonase Nasal [place]] 2 spray NASAL TID PRN PRN 01/20/18 Gabapentin [Neurontin] 300 mg PO DAILY 01/20/18 Mycophenolate Mofetil 500 mg PO BID 01/20/18 Nifedipine [Nifedipine ER] 60 mg PO BID 01/20/18 Pravastatin [Pravachol] 40 mg PO QHS 01/20/18 Prednisone 5 mg PO DAILY 01/20/18 Tacrolimus Anhydrous [Prograf] 2 mg PO BID 01/20/18 Insulin Aspart [Novolog Flexpen] 6 units SUBCUT TIDCM 01/27/18 diphenhydramine 25 mg tablet 25 mg PO DAILY PRN PRN 03/04/18 famotidine 20 mg tablet 20 mg PO BID PRN 03/04/18 zolpidem 10 mg tablet 10 mg PO QHS PRN 03/04/18 Cetirizine HCl [Zyrtec] 10 mg PO QHS 04/15/18 Ondansetron [Zofran] 8 mg PO Q6H PRN PRN #40 tab 04/18/18 pen needle, diabetic 31 gauge x 08/16 See Dose Instructions .ROUTE .MEDSUPPLY #100 ea 04/23/18 oxycodone-acetaminophen 5 mg-325 mg tablet 0.5 tab PO .Q8 PRN #60 tab 07/04/18 Insulin Detemir [Levemir] 35 unit SC DAILY 07/09/18 Primary Care Physician: Aster Martin MD [Primary Care Provider] - Test Results: Test results from this visit will be discussed in further detail at your follow-up appointment, if applicable. Please Follow Up With: Aldo Martins DO - 2Weeks Proposed Discharge Date: 07/09/18
--- NOTE | 2018-07-09 13:34 | DCINST_ITS ---
Ice area for (Minutes): 15 Lifting Restrictions: yes Additional Activity Instructions:: Do not lift push or pull anything with the operative hand. Keep the dressing on clean and dry. Keep the hand elevated higher than the heart for the next 72 hours with ice 15 minutes on and 15 minutes off throughout the day. Avoid bending and flexing the operative digit avoid bumping the operative digit. If dressing becomes loose please call the office for a sooner first appointment. Call your doctor if you observe: Shortness of breath, Chest pain Additional Instructions: Use pain medication that has already been provided if issue with this let Dr. Martins office know Allergies/Adverse Reactions: Allergies furosemide [From Lasix] Allergy (Verified 07/08/18 11:16) Hives Medications to take at Discharge Carvedilol [Coreg] 25 mg PO BID 01/20/18 Fluticasone 0.05% [Flonase Nasal [place]] 2 spray NASAL TID PRN PRN 01/20/18 Gabapentin [Neurontin] 300 mg PO DAILY 01/20/18 Mycophenolate Mofetil 500 mg PO BID 01/20/18 Nifedipine [Nifedipine ER] 60 mg PO BID 01/20/18 Pravastatin [Pravachol] 40 mg PO QHS 01/20/18 Prednisone 5 mg PO DAILY 01/20/18 Tacrolimus Anhydrous [Prograf] 2 mg PO BID 01/20/18 Insulin Aspart [Novolog Flexpen] 6 units SUBCUT TIDCM 01/27/18 diphenhydramine 25 mg tablet 25 mg PO DAILY PRN PRN 03/04/18 famotidine 20 mg tablet 20 mg PO BID PRN 03/04/18 zolpidem 10 mg tablet 10 mg PO QHS PRN 03/04/18 Cetirizine HCl [Zyrtec] 10 mg PO QHS 04/15/18 Ondansetron [Zofran] 8 mg PO Q6H PRN PRN #40 tab 04/18/18 pen needle, diabetic 31 gauge x 08/16 See Dose Instructions .ROUTE .MEDSUPPLY #100 ea 04/23/18 oxycodone-acetaminophen 5 mg-325 mg tablet 0.5 tab PO .Q8 PRN #60 tab 07/04/18 Insulin Detemir [Levemir] 35 unit SC DAILY 07/09/18 Primary Care Physician: Aster Martin MD [Primary Care Provider] - Test Results: Test results from this visit will be discussed in further detail at your follow- up appointment, if applicable. Please Follow Up With: Aldo Martins DO - 2Weeks Proposed Discharge Date: 07/09/18
--- NOTE | 2018-07-09 13:34 | PCM.OPRPT ---
Report of Operation Date of Procedure: 07/09/18 Pre-Operative Diagnosis: left angulated and displaced middle phalanx middle finger fracture extra-articular Post-Operative Diagnosis: Same Surgery/Procedure Performed:: Closed reduction and percutaneous pinning of the left middle phalanx middle finger Description of Surgical Findings:: Indication for procedure: This is a pleasant 37-year-old female who had a fall injuring her left middle finger she had significant deformity and did have a attempted closed reduction by another orthopedic group at her follow-up appointment her fracture had angulated ulnarly and she was recommended to follow-up in [place] for upper extremity definitive care. Patient therefore came to my office for a second opinion regarding her fracture care it was noted that she had about 22 degrees of ulnar angulation and gross deformity on exam. She did wish to proceed with attempted closed reduction percutaneous pinning. She was added on for the following day. Procedure: Patient was met in the preoperative holding area once again the operative extremity was identified by both patient and physician and was marked. It was noted by anesthesia that there was EKG changes on her previous EKG and they had requested that I proceed with digital block with MAC anesthesia. This was acceptable. He was brought back to the operating room on a wheeled cart and transferred to the operating table in the supine position MAC anesthesia was started she was prepped and draped in the usual sterile fashion. A timeout was called to ensure the proper patient procedure and extremity were being contemplated. A digital block was then performed with 1% lidocaine injecting both the dorsal and volar digital nerves of the finger. At this point a closed reduction was performed on her mini C arm guidance and a 0.45 K wire was inserted from radial proximal to ulnar distal a excellent stability of the fracture. Fluoroscopy B images were saved in both AP and lateral projections to the PAC system. The K wire was cut and a K wire Was applied. Dressing was applied in the form of Xeroform 4 x 4's Tubegauz and Coban. Patient tolerated the procedure well she was brought back to the PACU in stable condition no intraoperative complications. She will follow-up in the office Type of Anesthesia:: MAC/Supplemental - Digital block
[2018-07-09 13:35] VITALS: BP 146/77; BP 149/77; PULSE 71; RESP 16; TEMP 36.6; O2SAT 100
[2018-07-09 13:40] VITALS: BP 143/74; BP 146/77; PULSE 72; RESP 6; O2SAT 100
[2018-07-09 13:45] VITALS: BP 139/80; BP 146/77; PULSE 73; RESP 16; O2SAT 100
[2018-07-09 13:51] VITALS: BP 141/76; BP 146/77; PULSE 71; RESP 16; TEMP 37.2; O2SAT 100
[2018-07-09 14:12] VITALS: BP 146/77
[2018-07-11 18:14] LABS: Tacrolimus (FK506) 5.1 ng/mL (2.0-20.0)
== END 2018-07-09 14:26 | disposition home or self-care (01) ==
LOC: SDC 09:01 → AC 09:02
PROVIDERS: Family Provider Internal Medicine; PCP Internal Medicine; Referring Provider Orthopaedic Surgery; Visit Provider Orthopaedic Surgery
PROC: (CPT 26727; principal; 2018-07-09 10:55)
DX: S62.623A Displaced fracture of middle phalanx of left middle finger, initial encounter for closed fracture (principal); A48.1 Legionnaires' disease; G62.9 Polyneuropathy, unspecified; N28.9 Disorder of kidney and ureter, unspecified; E78.00 Pure hypercholesterolemia, unspecified; D64.9 Anemia, unspecified; J30.2 Other seasonal allergic rhinitis; Z94.0 Kidney transplant status; K21.9 Gastro-esophageal reflux disease without esophagitis; I12.9 Hypertensive chronic kidney disease with stage 1 through stage 4 chronic kidney disease, or unspecified chronic kidney disease; E11.22 Type 2 diabetes mellitus with diabetic chronic kidney disease; N18.3 Chronic kidney disease, stage 3 (moderate); Z87.891 Personal history of nicotine dependence; Z79.52 Long term (current) use of systemic steroids; Z79.4 Long term (current) use of insulin; Z79.891 Long term (current) use of opiate analgesic; Z79.899 Other long term (current) drug therapy; W19.XXXD Unspecified fall, subsequent encounter
CPT/HCPCS: 26727; 36415; 73140; 76000; 80069; 80197; 82043; 82306; 82570; 82962; 83036; 83970; 84156; 85027; 93005; J7120; J2405

== ENCOUNTER → 2018-08-07 09:55 | Outpatient (CLI) | payer MEDICARE, SELFPAY ==
[2018-08-07 08:17] VITALS: BMI 29.0
--- NOTE | 2018-08-07 09:58 | RAD_ITS ---
STUDY: X-RAY - LEFT HAND, ATTENTION THIRD FINGER REASON FOR EXAM: Female, 37 years old. Fracture TECHNIQUE: 3 view(s) of the finger were obtained. COMPARISON: None. FINDINGS: External fusion of the third middle phalanx. Normal fracture alignment. No radiographic evidence of hardware failure. RAD/Finger(s) Min 2 Views IMPRESSION: Normal fracture alignment. No radiographic evidence of hardware failure. Electronically Signed: Rufino Soler MD at 23:06 EST Tel , Service support ,
== END ==
LOC: HPRAD 09:56
PROVIDERS: Family Provider Internal Medicine; PCP Internal Medicine; Referring Provider Orthopaedic Surgery; Visit Provider Orthopaedic Surgery
DX: S62.609A Fracture of unspecified phalanx of unspecified finger, initial encounter for closed fracture (principal)
CPT/HCPCS: 73140

== ENCOUNTER 2018-09-10 08:30 | Outpatient (RCR) | payer MEDICARE, MEDICAID, SELFPAY ==
[2018-08-07 08:17] VITALS: BMI 29.0
--- NOTE | 2018-08-19 09:28 | HP.OTEVAL ---
Patient's Visit Information BERTRAM AMBROSE is a 37 year old F, referred to Occupational Therapy by Aldo Martins DO, with a diagnosis of left MF fx. Date of Evaluation: 08/19/18 Occupational Therapist: GRACY Carvajal/Caren, CHT - Subjective Subjective: This 37 year old female was seen for intial OT eval following a left MF fx 2018 - sx for pinning Jul.09 having pinning of left MF. pt states she recently had her pin removed and she has been using stack splint to supppont and provide protection.Pt states she would like to regain her ROM and use her left UE/hand for all ADLs and IADLs - ADLs Dressing: Pants, Socks Fasteners: Tie shoes, [place], Belt Eating: Cut food Bathing: Handle washcloth & soap, Squeeze shampoo bottle Kitchen: Chop with knife, Peel fruits & vegetables, Open jars, Open bottle caps, Take dish out of oven, Load/unload conversion man Miscellaneous: Open medication bottle, Handle money (change), Hold change - Pain left MF 2 Pain Intensity Range: 0, 5 - ROM MP: left 80 right 85 PIP: left 55 right 105 DIP: left 25 right 85 ROM Comments: pt demo with a decrease in left MF ROM. All other digits pt demo ROM WNL - Strength Servicer Travel Trailers: right 45 left NT Lateral Pinch: right 12# Left NT Tripod Pinch: right 12# Left NT Strength Comments: left dental coordinator/pinch strength will be tested at a later date - Quick DASH-Disab of Arm,Shoulder& Hand Quick DASH Score: 61.3625 - Goals Goal:: PT will demo an increase in dental coordinator strength by 20# to increase independent with basic occupations of daily living to return pt to PLOF by D/C. Pt will demo an increase in lateral and tripod pinch by 2# to increase pts independent with opening baggies, containers at PLOF by D/C. Goal:: Pt will demo the ability to form a composite fist to return to performing BADLs and IADLS at PLOF by d/c. Pt will demo left MF PIP flex to 75* or greater to demo functional ROM of left ahnd Goal:: Pt will demo the ability to form a composite fist to hold and receive 10 coins without dropping coins/ and coin manipulation/money mtg. tasks by D/C. Goal:: Pt will report ind. With BADLS and IADLs with no compensation or pain by dc - Rehabilitation General Assessment: S/P pinning of left MF - pt demo with limited left MF ROM and use of left UE for ADLs and IADLs. pt demo need for skilled OT services 1-2x week for 6 weeks to return pt to [facility]. Today pt was ed on AROM, PROM and tendon glide ex. and desensitization. pt demo understanding of ex and agree with POC. Rehabilitation Potential: Excellent - Anticipated Interventions Anticipated Interventions: A/AAROM/PROM, Strengthening, Triggerpoint Release, Desensitization, Sensory Retraining, Modalities, Orthoses, Joint Protection/Energy Conservation, Fine Motor Coord/Deandre - Visit Plan Frequency: 1-2x /Week Duration: 6 Weeks TEXT: Thank you for the opportunity to evaluate your patient. For Medicare and Medicare HMO plans, please review the plan of care and approve it. It will need to be FAXED BACK to us at [phone] for Medicare purposes. Please let me know if there are questions or concerns regarding this plan of care. Physician Signature: Date:
== END 2018-09-10 19:00 | disposition home or self-care (01) ==
LOC: OT 08:30
PROVIDERS: Family Provider Internal Medicine; PCP Internal Medicine; Referring Provider Orthopaedic Surgery; Visit Provider Orthopaedic Surgery
DX: Z47.89 Encounter for other orthopedic aftercare (principal)
CPT/HCPCS: 97110; 97140; 97166; 97530; 97760

== ENCOUNTER → 2018-10-16 | Outpatient (CLI) | payer MEDICARE, MEDICAID, SELFPAY ==
[2018-10-14 08:53] VITALS: BMI 29.0
--- NOTE | 2018-10-16 09:10 | US_ITS ---
STUDY: SUPERFICIAL ULTRASOUND - POSTERIOR ASPECT OF THE RIGHT ARM. REASON FOR EXAM: Female, 37 years old. Soft tissue mass. TECHNIQUE: A superficial ultrasound was performed with real-time and static diaz-scale imaging. COMPARISON: None. FINDINGS: Imaging of the area of concern was obtained by ultrasound. No solid or cystic mass lesion is seen. Possible edema. US/Other Unlisted US Procedure IMPRESSION: Unremarkable examination. Electronically Signed: Roger Griffith, at 15:40 EDT , Service support ,
== END | disposition home or self-care (01) ==
LOC: US 09:09
PROVIDERS: Family Provider Internal Medicine; PCP Internal Medicine; Referring Provider Nurse Practitioner Family; Visit Provider Nurse Practitioner Family
DX: R22.31 Localized swelling, mass and lump, right upper limb (principal)
CPT/HCPCS: 76999

== ENCOUNTER → 2018-10-29 | Outpatient (CLI) | payer MEDICARE, MEDICAID, SELFPAY ==
[2018-10-14 08:53] VITALS: BMI 29.0
[2018-10-24 15:12] VITALS: BMI 26.9
--- NOTE | 2018-10-29 09:35 | NM_ITS ---
CLINICAL: 37-year-old diabetic female with reported history of anorexia. SEMI-SOLID PHASE 99m Tc SULFUR COLLOID GASTRIC EMPTYING STUDY COMPARISON: None available FINDINGS: The patient was administered 1.0 mCi of 99m Tc sulfur colloid mixed with oatmeal and consumed per os. Image acquisitions in the anterior-posterior projections for a total of 60 minutes. There is prompt visualization of the stomach. There is no gastroesophageal reflux identified. The T1/2 linear fit was calculated to be 36.85 minutes, (Normal: 12-56 minutes). NM/Gastric Emptying Study IMPRESSION: 1. NORMAL 99m Tc sulfur colloid semi-solid phase (oatmeal) gastric emptying imaging examination. A. There is normal and preserved semi-solid phase gastric emptying compared to normal controls. (Malcolm et al, J Nucl Med Tech 38: 186, 2010). Electronically Signed: Haroon De La Cruz DO at 11:22 EDT Tel , Service support ,
[2018-10-29 10:06] LABS: Microalbumin:Creatinine Ratio 301.9 mg/g CRE (<30 mg/g CRE)
[2018-10-29 10:13] LABS: Hemoglobin A1c 8.5 % (4.2-6.3); Vitamin D,25 Hydroxy 26.2 ng/mL (29.95-100.01)
[2018-10-29 10:18] LABS: ALB/GLOB Ratio 0.7 RATIO (0.9-2.4); AST(SGOT) 11 U/L (15-37); Alanine Aminotransfer ALT/SGPT 10 U/L (13-56); Albumin, Serum 2.8 g/dL (3.2-5.0); Alkaline Phosphatase 49 U/L (45-117); Anion Gap 7 (5-15); BUN 46 mg/dL (7-18); BUN/Creat Ratio 19.2 RATIO (10-20); Calcium,Total 8.8 mg/dL (8.5-10.1); Chloride 114 mmol/L (98-107); Cholesterol 201 mg/dL (200); EST Glomerular Filtration Rate 24 mL/min (>60); Est Glom Filt Rate - Afr Amer 29 mL/min (>60); Globulin 3.8 g/dL (2.2-4.2); Glucose 54 mg/dL (74-106); High Density Lipoprotein 45 mg/dL; Potassium 3.7 mmol/L (3.5-5.1); Protein, Total 6.6 g/dL (6.4-8.2); Sodium Level 145 mmol/L (136-145); Thyroid Stim Hormone (TSH) 1.98 uIU/mL (0.358-3.74); Triglycerides 127 mg/dL; Very Low Density Lipoprotein 25 mg/dL (5-40)
[2018-10-31 12:32] LABS: C-Peptide 0.7 ng/mL (1.1-4.4); Thyroid Peroxidase AB 24 IU/mL (0-34)
== END | disposition home or self-care (01) ==
PROVIDERS: Family Provider Internal Medicine; PCP Internal Medicine; Referring Provider Internal Medicine Endocrinology, Diabetes & Metabolism; Visit Provider Internal Medicine Endocrinology, Diabetes & Metabolism
DX: E55.9 Vitamin D deficiency, unspecified (principal); E11.43 Type 2 diabetes mellitus with diabetic autonomic (poly)neuropathy
CPT/HCPCS: 36415; 78264; 80053; 80061; 82043; 82306; 82570; 83036; 84443; 84681; 86376; A9541

== ENCOUNTER → 2019-02-05 | Outpatient (CLI) | payer MEDICARE, MEDICAID, SELFPAY ==
[2018-10-24 15:12] VITALS: BMI 26.9
--- NOTE | 2019-02-05 12:13 | SPIR ---
Spirometry PFT Testing Spirometry PFT Testing: COMPLETE PULMONARY FUNCTION TEST INTERPRETATION Brief HPI: Patient is a 38 year old Black female, currently under the care of Dr. Cheek, who presents to [facility] for complete pulmonary function tests secondary to diagnosis of diabetes. Respiratory therapist reports good effort and reproducible results. Interpretation: Forced expiration spirometry shows no large airways obstructive ventilatory defect with an FEV1 of 57% predicted. There was no bronchodilator response tested. Spirograms are of good quality and plateau normally. The respiratory flow volume loop shows decreased expiratory flow rates at high lung volumes consistent with small airways obstruction. No previous pulmonary function tests were available for review. Impression: Spirometry is suggestive of a possible restrictive ventilatory defect. Consider complete PFT for evaluation
== END | disposition home or self-care (01) ==
PROVIDERS: Family Provider Internal Medicine; PCP Internal Medicine; Referring Provider Internal Medicine Endocrinology, Diabetes & Metabolism; Visit Provider Internal Medicine Endocrinology, Diabetes & Metabolism
DX: E10.9 Type 1 diabetes mellitus without complications (principal)
CPT/HCPCS: 94010

== ENCOUNTER → 2019-02-16 | Outpatient (CLI) | payer MEDICARE, MEDICAID, SELFPAY ==
[2019-02-16 09:51] VITALS: BMI 26.9
[2019-02-16 12:48] LABS: ALB/GLOB Ratio 0.7 RATIO (0.9-2.4); AST(SGOT) 9 U/L (15-37); Alanine Aminotransfer ALT/SGPT 23 U/L (13-56); Albumin, Serum 3.5 g/dL (3.2-5.0); Alkaline Phosphatase 90 U/L (45-117); Anion Gap 5 (5-15); BUN 49 mg/dL (7-18); BUN/Creat Ratio 18.4 RATIO (10-20); Calcium,Total 9.3 mg/dL (8.5-10.1); Chloride 109 mmol/L (98-107); Creatinine, Serum 2.66 mg/dL (0.55-1.02); EST Glomerular Filtration Rate 21 mL/min (>60); Est Glom Filt Rate - Afr Amer 26 mL/min (>60); Globulin 5.1 g/dL (2.2-4.2); Glucose 114 mg/dL (74-106); Potassium 4.9 mmol/L (3.5-5.1); Protein, Total 8.6 g/dL (6.4-8.2); Sodium Level 139 mmol/L (136-145)
== END | disposition home or self-care (01) ==
LOC: BIMLAB 10:18
PROVIDERS: Family Provider Internal Medicine; PCP Internal Medicine; Visit Provider Internal Medicine
DX: E10.22 Type 1 diabetes mellitus with diabetic chronic kidney disease (principal); N18.3 Chronic kidney disease, stage 3 (moderate)
CPT/HCPCS: 36415; 80053

== ENCOUNTER 2019-02-18 17:46 | Emergency (ER) | payer MEDICARE, MEDICAID, SELFPAY ==
[2019-02-16 09:51] VITALS: BMI 26.9
[2019-02-18 17:48] VITALS: BP 240/102; PULSE 92; RESP 20; TEMP 37.3; O2SAT 95; BMI 30.2
--- NOTE | 2019-02-18 18:15 | ED.VIS.GEN ---
History of Present Illness Chief Complaint: Nausea/Vomiting Informant: Patient Onset: Yesterday Context: Sudden Onset Timing: Intermittent Quality: Nausea and vomiting Location: GI Current Severity: Mild Maximum Severity: Moderate Worsened by: Nothing in particular Relieved by: Better after Zofran ODT per squad Associated Symptoms: Nausea, vomiting, dry mouth, orthostatic symptoms subjective fever Narrative: Patient is a 38-year-old woman with history of diabetes who presents with nausea and vomiting that started yesterday. She states she is vomited numerous times. She did not note blood or coffee-ground emesis. She had a bowel movement 1 hour prior to presentation states it was normal. She does report subjective fever with chills. She complains of mild arthralgias. She complains of diffuse headache with no photophobia. Denies neck pain or neck stiffness. She denies chest pain. She denies cough or shortness of breath. She denies dysuria, frequency, urgency or hematuria. She denies rash. Prior similar symptoms: No Recent Illness/Hospitalization: No - Past Medical History (1) Anemia Status: Chronic (2) CKD stage 3 due to type 1 diabetes mellitus Status: Chronic (3) Cataracts, bilateral Status: Chronic (4) Chronic bronchitis Status: Chronic (5) High cholesterol Status: Chronic (6) History of chronic pancreatitis Status: Chronic (7) Neuropathy Status: Chronic (8) Seasonal allergies Status: Chronic (9) Renal transplant recipient Status: Inactive Past Medical History - Allergies and Home Meds Allergies/Adverse Reactions: Allergies furosemide [From Lasix] Allergy (Verified 02/18/19 17:48) Hives Primary Care Physician: Aster Martin MD [Primary Care Provider] - Prior records reviewed: Yes Surgical History: appendectomy, - - Status post kidney transplant, poor wound debridement, diverting sigmoid colostomy on 07/06/2017, reversed on 07/07/2017, percutaneous tracheostomy, no longer has, left TMA Lives: Alone Smoking Status: Former smoker Alcohol: None Drugs: None - Family History Maternal Family History: Family History (Last Reviewed 10/24/18 @ 15:12 by Amada Levi) Mother Asthma Hypertension Father Myocardial infarction Family History: Reports: Diabetes, Hypertension Paternal Family History: Family History (Last Reviewed 10/24/18 @ 15:12 by Amada Zimmerly) Mother Asthma Hypertension Father Myocardial infarction Family History: Reports: No pertinent history Review of Systems General: Reports: Chills, Fever, Malaise, Subjective, Sweats Eyes: Denies: Visual changes - bilaterally, Blurred Vision - bilaterally, Diplopia ENT: Denies: Bilateral ear pain, Rhinorrhea, Sore throat Cardiovascular: Denies: Chest pain, Palpitations Respiratory: Denies: Dyspnea, Cough, Dyspnea on exertion, Orthopnea Gastrointestinal: Reports: Abdominal pain, Nausea, Vomiting. Denies: Diarrhea, Constipation, Melena, Hematochezia Genitourinary: Denies: Dysuria, Hematuria, Frequency Musculoskeletal: Reports: Myalgias, Arthralgias. Denies: Neck pain, Back pain, Swelling Skin: Denies: Rash, Wounds Neurological: Reports: Headache, Weakness, Parasthesia. Denies: Numbness Endocrine: Denies: Polyuria, Polydipsia Hematologic: Denies: Easy bruising, Easy bleeding Allergy: Denies: Uticaria Physical Exam Vital Signs/Narrative: Vital Signs Temp Pulse Resp BP Pulse Ox 02/18/19 17:48 99.2 F H 92 20 H 240/102 H 95 Inital Vital Signs reviewed: Yes General: Well nourished, Well developed, - - Appears ill Head: Normocephalic, Atraumatic Eyes: Perrl, EOMI. Negative for: Pale conjunctiva, Scleral icterus, - ENT: No rhinorrhea, TM's clear, Dry mucous membranes Neck: Supple, Nontender, No lymphadenopathy, No JVD Cardiovascular: Regular rate, Regular rhythm, No murmurs, Normal S1, Normal S2 Respiratory: No distress, CTA bilaterally, Chest nontender Abdomen: Soft, Nondistended, Normal bowel sounds, No masses, Tender. Negative for: Nontender, Guarding, Rebound tenderness, Hepatomegaly, Splenomegaly Back: Nontender, Normal Inspection Extremities: Nontender, No edema Skin: Normal color, No rash, No Trauma. Negative for: Cyanosis, Diaphoresis, Jaundice Neurological: Alert, Oriented x3, Cranial nerves II-XII grossly intact, Normal Strength, Normal Sensation Psychological: Normal affect, Normal Mood Diagnostic/Tx/Re-eval Laboratory Results 02/18/19 02/18/19 19:12 19:12 WBC 7.0 RBC 4.88 Hgb 13.5 Hct 41.5 MCV 85.0 MCH 27.7 MCHC 32.5 RDW Std Deviation 45.7 H RDW Coeff of Sahra 15.0 H Plt Count 259 MPV 11.7 Immature Gran % (Auto) 0.100 Neut % (Auto) 85.8 H Lymph % (Auto) 5.6 L [place] % (Auto) 6.5 Eos % (Auto) 1.7 Baso % (Auto) 0.3 Absolute Neuts (auto) 6.0 Absolute Lymphs (auto) 0.39 L Nucleated RBC % 0 Differential Comment SCANNED Sodium 137 Potassium 5.0 Chloride 108 H Carbon Dioxide 24.0 Anion Gap 5 BUN 37 H Creatinine 2.48 H Estim Creat Clear Calc 28.23 Est GFR (MDRD) Af Amer 28 L Est GFR (MDRD) Non-Af 23 L BUN/Creatinine Ratio 14.9 Glucose 283 H Calcium 9.7 Total Bilirubin 0.80 Direct Bilirubin 0.17 AST 13 L ALT 13 Alkaline Phosphatase 100 Total Protein 9.1 H Albumin 3.6 Globulin 5.5 H Lipase 50 L White count and H&H are unremarkable. There is no bandemia. Creatinine is 2.48 which is lower than prior. BUN to creatinine ratio is 14.9-1. Blood sugar is elevated to 83. ALT and AST and total bilirubin are unremarkable. Lipase is low. - Medical Decision Making With history of type 2 diabetes, prior acute kidney injury and on immunosuppressive meds and she is a liver recipient will obtain a sling blood work. IV fluids and antiemetic. Because she is a liver recipient will add hepatic profile. Since there is history of chronic pancreatitis lipase was added as well. Baseline blood work is unchanged from prior. Patient was medicated with morphine for her discomfort. Since patient had no vomiting since arrival p.o. challenge was ordered. Since patient has passed p.o. challenge and there is no acute on chronic renal injury will discharge to home ED Disposition - Plan for ED Patient: Disposition: Home or Assisted Living Diagnosis: Nausea & vomiting, Abdominal pain, Chronic renal disease, stage 3, moderately decreased glomerular filtration rate (GFR) between 30-59 mL/min/1.73 square meter, Hyperglycemia due to type 1 diabetes mellitus Instructions: VOMITING (6y-Adult) Prescriptions: Ondansetron [Zofran Odt] 4 mg PO Q8H PRN PRN #10 tab PRN Reason: Nausea Transmission Status: Pending to [id number] Referrals: Aster Martin MD [Primary Care Provider] - 1-2 Days if not improving Additional Instructions: Your prescription was electronically transmitted to [facility]
[2019-02-18] MEDS: 0.9% Normal Saline 1,000 ML 1000 ML IV (19:08)
[2019-02-18] MEDS: Ondansetron 4 MG/2 ML Vial IV (19:11)
[2019-02-18 19:12] VITALS: TEMP 37.6
[2019-02-18 19:31] LABS: Absolute Lymphocyte Count 0.39 X10^3/uL (0.83-4.51); Basophil# 0.02 X10^3/uL; Basophil% 0.3 % (0-1); Eosinophil# 0.12 X10^3/uL; Eosinophils% 1.7 % (0-5); Hematocrit 41.5 % (37-47); Hemoglobin 13.5 g/dL (12.0-15.0); Lymphocyte # 0.39 X10^3/ul (4.0); Lymphocyte % 5.6 % (19-41); Mean Corp Hgb Conc 32.5 g/dL (32-36); Mean Corpuscular Hgb 27.7 pg (27.0-32.0); Mean Platelet Vol. 11.7 fl (6.2-12.0); Monocyte# 0.45 X10^3/uL; Monocyte% 6.5 % (0-10); NRBC Flagged by Analyzer 0 % (0-5); Neutrophil # 5.98 X10^3/uL (2.7-7.7); Neutrophil % 85.8 % (47-70); POSITIVE DIFFERENTIAL YES; POSITIVE MORPHOLOGY YES; Platelet Count 259 K/mm3 (150-450); RBC Distribution Width SD 45.7 fl (35.1-43.9); Red Blood Count 4.88 M/mm3 (4.2-5.4)
[2019-02-18 19:33] LABS: Differential Indicated SCAN CRITERIA MET
[2019-02-18 19:40] LABS: AST(SGOT) 13 U/L (15-37); Alanine Aminotransfer ALT/SGPT 13 U/L (13-56); Albumin, Serum 3.6 g/dL (3.2-5.0); Alkaline Phosphatase 100 U/L (45-117); Anion Gap 5 (5-15); BUN 37 mg/dL (7-18); BUN/Creat Ratio 14.9 RATIO (10-20); Bilirubin, Direct 0.17 mg/dL (0.00-0.30); Calcium,Total 9.7 mg/dL (8.5-10.1); Chloride 108 mmol/L (98-107); Creatinine, Serum 2.48 mg/dL (0.55-1.02); EST Glomerular Filtration Rate 23 mL/min (>60); Est Glom Filt Rate - Afr Amer 28 mL/min (>60); Estimated Creatinine Clearance 28.23 ml/min; Globulin 5.5 g/dL (2.2-4.2); Glucose 283 mg/dL (74-106); Lipase 50 U/L (73-393); Protein, Total 9.1 g/dL (6.4-8.2); Sodium Level 137 mmol/L (136-145)
[2019-02-18 19:53] LABS: Differential Comment SCANNED
[2019-02-18 19:58] VITALS: BP 189/84; PULSE 93; RESP 17
[2019-02-18] MEDS: Morphine 4 MG/ML Syringe IV (20:00)
[2019-02-18 21:25] VITALS: BP 187/97; PULSE 90; RESP 16; O2SAT 97
== END 2019-02-18 21:26 | disposition home or self-care (01) ==
PROVIDERS: Emergency Provider Emergency Medicine; Family Provider Internal Medicine; PCP Internal Medicine
DX: R11.2 Nausea with vomiting, unspecified (principal); R10.9 Unspecified abdominal pain; N18.3 Chronic kidney disease, stage 3 (moderate); E10.22 Type 1 diabetes mellitus with diabetic chronic kidney disease; E10.65 Type 1 diabetes mellitus with hyperglycemia; E78.00 Pure hypercholesterolemia, unspecified; G62.9 Polyneuropathy, unspecified; Z94.0 Kidney transplant status; Z79.4 Long term (current) use of insulin; Z79.899 Other long term (current) drug therapy; Z87.891 Personal history of nicotine dependence
CPT/HCPCS: 80048; 80076; 83690; 85025; 96361; 96374; 96375; 99285; J7030; A4216; J2405

== ENCOUNTER 2019-02-20 04:48 | Observation (INO) | payer MEDICARE, MEDICAID, SELFPAY ==
[2019-02-20] VITALS (8 sets, daily range): BP systolic 164–186; BP diastolic 69–93; PULSE 81–86; RESP 14–18; TEMP 36.7–37.3; O2SAT 97–100; BMI 28.5; BMI 27.6; BMI 27.7
--- NOTE | 2019-02-20 05:06 | EKG12_ITS ---
Test Reason : NAUSEA/VOMITING Blood Pressure : / mmHG Vent. Rate : 082 BPM Atrial Rate : 082 BPM P-R Int : 146 ms QRS Dur : 072 ms QT Int : 390 ms P-R-T Axes : 063 032 106 degrees QTc Int : 455 ms Normal sinus rhythm Biatrial enlargement Septal infarct (cited on or before 09-JUL-2018), age undetermined Abnormal ECG Confirmed by DONTE GROSSMAN, ALESSANDRO ([id number]), continuity editor KULWANT BLAKE ([id number]) on 02/23/2019 9:14:57 AM Referred By: Reyes Montes Confirmed By:ALESSANDRO KENT MD
--- NOTE | 2019-02-20 05:09 | ED.DCSUM_ITS ---
- ER Visit Summary Date of Service: 02/20/19 Chief Complaint: Vomiting History of Present Illness: The patient is a 38 F presenting with nausea, vomiting. Patient states this started on Saturday. She was seen in the ED on Saturday for similar complaints. She states she still continues to have vomiting and is unable to keep anything down. She denies diarrhea. She has diffuse abdominal cramping. Denies fever. Denies chest pain or shortness of breath. Denies recent antibiotics. Denies travel. Denies bad food exposure. Denies sick contacts. She was given Zofran on Saturday. She states that she tried this yesterday with no improvement. Denies other complaints. She has history of appendectomy and renal transplant. Physical Examination: Vitals are stable. Patient is afebrile. Alert no acute distress. HEENT exam is unremarkable. Neck is supple. Lungs are clear and equal bilaterally. Heart is regular rate and rhythm. Abdomen is soft mild diffuse tenderness no rebound or guarding Extremities are unremarkable. Skin is warm and dry. No focal neurologic deficit. Remainder of exam is unremarkable. Emergency Department Course and Treatment: Patient was given IV fluids, Phenergan. EKG is sinus rhythm rate of 82, unchanged from previous. CBC, chemistries unremarkable other than sodium 135, glucose 93, BUN 48, creatinine 2.66. Liver enzymes are normal. Lipase is 71. Urinalysis shows 10-25 red blood cells, 0-5 white blood cells. Troponin is negative. Patient continues to be nauseated was given Zofran. CT abdomen pelvis without contrast was obtained which shows stable cystic density right adnexa, bladder wall thickening. Discussed with Dr. Montes for admission for intractable nausea vomiting. He would like patient to be observed and attempt p.o. challenge again. Patient will be checked out to the oncoming physician for reevaluation. Disposition: Pending Impression: Intractable nausea vomiting This note was generated with FileThis dictation software. It may contain incorrect words, spelling, and punctuation that were not noted in review of the chart prior to signing ED Disposition - Plan for ED Patient: Referrals: Aster Martin MD [Primary Care Provider] -
[2019-02-20 06:15] LABS: Absolute Lymphocyte Count 0.48 X10^3/uL (0.83-4.51); Basophil# 0.03 X10^3/uL; Basophil% 0.5 % (0-1); Eosinophil# 0.01 X10^3/uL; Eosinophils% 0.2 % (0-5); Hematocrit 41.5 % (37-47); Hemoglobin 13.9 g/dL (12.0-15.0); Lymphocyte # 0.48 X10^3/ul (4.0); Lymphocyte % 8.1 % (19-41); Mean Corp Hgb Conc 33.5 g/dL (32-36); Mean Corpuscular Hgb 28.3 pg (27.0-32.0); Mean Corpuscular Volume 84.3 fL (81-99); Mean Platelet Vol. 11.8 fl (6.2-12.0); Monocyte# 0.43 X10^3/uL; Monocyte% 7.2 % (0-10); NRBC Flagged by Analyzer 0 % (0-5); Neutrophil # 4.99 X10^3/uL (2.7-7.7); Neutrophil % 83.8 % (47-70); POSITIVE DIFFERENTIAL YES; Platelet Count 244 K/mm3 (150-450); RBC Distribution Width CV 15.4 % (11.6-14.6); RBC Distribution Width SD 46.6 fl (35.1-43.9); Red Blood Count 4.92 M/mm3 (4.2-5.4)
[2019-02-20 06:16] LABS: Differential Indicated SCAN CRITERIA MET
[2019-02-20] MEDS: proMETHazine 25 MG/ML Syringe 6.25 MG IV (06:17)
[2019-02-20] MEDS: 0.9% Normal Saline 1,000 ML 1000 ML IV (06:18)
[2019-02-20 06:53] LABS: Differential Comment SCANNED
[2019-02-20 07:28] LABS: Bacteria 0 SEEN /hpf (None Seen); Mucous, Urine 0 SEEN /hpf (<or=2+); Squamous Epithelial Cells - UA 0 SEEN /hpf (5-10)
[2019-02-20 07:32] LABS: ALB/GLOB Ratio 0.6 RATIO (0.9-2.4); AST(SGOT) 8 U/L (15-37); Alanine Aminotransfer ALT/SGPT 12 U/L (13-56); Albumin, Serum 3.3 g/dL (3.2-5.0); Alkaline Phosphatase 88 U/L (45-117); Anion Gap 6 (5-15); BUN 48 mg/dL (7-18); Chloride 107 mmol/L (98-107); Creatinine, Serum 2.66 mg/dL (0.55-1.02); EST Glomerular Filtration Rate 21 mL/min (>60); Est Glom Filt Rate - Afr Amer 26 mL/min (>60); Estimated Creatinine Clearance 26.32 ml/min; Globulin 5.3 g/dL (2.2-4.2); Glucose 293 mg/dL (74-106); Lipase 71 U/L (73-393); Potassium 4.6 mmol/L (3.5-5.1); Protein, Total 8.6 g/dL (6.4-8.2); Sodium Level 135 mmol/L (136-145)
[2019-02-20 07:36] LABS: Color, Urine Yellow (Yellow); Glucose, Dipstick 250 mg/dl (Normal); Ketone-Dipstick 15 mg/dl (Negative); Leukocyte Esterase-Dipstick Negative /ul (Negative); Nitrite-Dipstick Negative (Negative); Occult Blood-Urine 250 /ul (Negative); Protein-Dipstick 100 mg/dl (Negative); Urine Bilirubin Dipstick Negative (Negative); Urine Clarity Clear (Clear); Urine Urobilinogen Normal (Normal)
[2019-02-20 08:07] LABS: Red Blood Cells-Urine 10-25 SEEN /hpf (0-5); White Blood Cells 0-5 SEEN /hpf (0-5)
--- NOTE | 2019-02-20 08:12 | CT_ITS ---
STUDY: CT ABDOMEN AND PELVIS WITHOUT CONTRAST REASON FOR EXAM: Female, 38 years old. Nausea and vomiting. History of kidney stones and renal transplant. RADIATION DOSAGE (If Supplied By Facility): CTDIvol = ( 6.91 ) mGy, DLP = ( 376.41 ) mGycm TECHNIQUE: Transaxial images were obtained from the dome of the diaphragm to the symphysis pubis without oral contrast, and without intravenous contrast. Sagittal and coronal images were reconstructed. Individualized dose optimization techniques were used for this CT. COMPARISON: Comparison is made with prior study dated January 21, 2018. FINDINGS: The visualized lung bases are unremarkable. The visualized portions of the heart are within normal limits. Normal liver. Normal gallbladder and extrahepatic biliary system. Normal spleen. Normal pancreas. Normal bilateral adrenal glands. Moderate degree of atrophy of the little traverse kidneys. A transplanted kidney is once again seen in the right lower abdomen. Normal visualized stomach. Normal small intestine. Normal colon. The appendix is visualized and appears normal. There is diffuse atherosclerotic calcification of the abdominal aorta and the major visceral branches, without a demonstrated aneurysm. Normal inferior vena cava. Normal retroperitoneum. Mild degree of bladder wall thickening. Once again, there is an 8 cm x 6 cm x 4.8 cm cystic structure in the right adnexal region. This is unchanged. There is a small umbilical hernia containing fat. Normal osseous structures. CT/Abdomen/Pelvis without Cont IMPRESSION: Stable cystic density in the right adnexa. Bladder wall thickening. Electronically Signed: Roger Griffith, at 9:12 EDT , Service support ,
[2019-02-20] MEDS: Ondansetron 4 MG/2 ML Vial IV ×2 (09:20→17:02)
--- NOTE | 2019-02-20 10:04 | ED.RN ---
WATER GIVEN TO PT POST NAUSEA MEDICATION. WILL CONTINUE TO MONITOR.
[2019-02-20] MEDS: NIFEdipine 90 MG Tablet PO (12:18)
[2019-02-20] MEDS: Tacrolimus Anhydrous 1 MG Capsule 2 MG PO ×2 (12:18→22:19)
[2019-02-20] MEDS: Mycophenolate Mofetil 250 MG Capsule 500 MG PO ×2 (12:18→23:06)
[2019-02-20] MEDS: predniSONE 5 MG Tablet PO (12:19)
[2019-02-20] MEDS: Carvedilol 25 MG Tablet PO ×2 (12:19→20:44)
--- NOTE | 2019-02-20 15:27 | HP.PCM_ITS ---
Problem List (1) Nausea Status: Acute History of Present Illness Date of Admission: 02/20/19 Chief Complaint: nausea and vomiting. The patient is a 38 year old F who was here earlier this week with terrible nausea and vomiting. Was sent home when to return this morning with intractable nausea and vomiting. Patient was having nausea when she arrived but no vomiting. She received ondansetron and promethazine but still having nausea. The hospital service was contacted for admission. I spoke with Dr. Nick and inquired if a fluid challenge and had been performed, she said that it had not and I advised for that to occur for the patient to be considered for admission. Dr. Sprague later contacted me and stated that the fluid challenge was performed and that the patient had vomited. Later clarified with him that that is what he is told that he did not visualize it. Went to evaluate the patient and did my history and physical and then told patient that she had vomited when she had the p.o. challenge. The patient denied ever having had an oral challenge while she was in the ER. I clarified that with the patient make sure that she was telling me it correctly and she again verify that she had not received anything orally while in the emergency room. I then asked the nurse to provide patient a p.o. challenge and patient was able to drink water though still continued to have nausea. Patient did receive her medications for her transplant medications and she was able to tolerate that though still is having abdominal pain but no vomiting since being in the emergency room. [] Past Medical History Past Medical History (Chronic Problems): Chronic Problems (Last Reviewed 10/24/18 @ 15:12 by Amada Levi) Acute kidney injury superimposed on chronic kidney disease (Chronic) Legionnaires' disease (Chronic) History of chronic pancreatitis (Chronic) Neuropathy (Chronic) Kidney disease (Chronic) High cholesterol (Chronic) High blood pressure (Chronic) Diabetes (Chronic) Chronic bronchitis (Chronic) Cataracts, bilateral (Chronic) Anemia (Chronic) Seasonal allergies (Chronic) Hyperglycemia due to type 1 diabetes mellitus (Chronic) Hyperglycemia without ketosis (Chronic) DM type 1 (diabetes mellitus, type 1) (Chronic) 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) Medical History: Medical History (Last Reviewed 02/20/19 @ 15:35 by Reyes Montes DO) Legionnaires' disease (Chronic) A48.1 History of chronic pancreatitis (Chronic) Z87.19 Neuropathy (Chronic) G62.9 Kidney disease (Chronic) N28.9 High cholesterol (Chronic) E78.00 High blood pressure (Chronic) I10 Diabetes (Chronic) E11.9 Chronic bronchitis (Chronic) J42 Cataracts, bilateral (Chronic) H26.9 Anemia (Chronic) D64.9 Seasonal allergies (Chronic) J30.2 Allergies furosemide [From Lasix] Allergy (Verified 02/18/19 17:48) Hives Home Medications: Ambulatory Orders Medication Instructions Recorded Carvedilol [Coreg] 25 mg PO BID 01/20/18 Gabapentin [Neurontin] 300 mg PO DAILY 01/20/18 Mycophenolate Mofetil 500 mg PO BID 01/20/18 Tacrolimus Anhydrous [Prograf] 2 mg PO BID 01/20/18 Insulin Aspart [Novolog Flexpen] 8 - 18 units SUBCUT TIDCM 01/27/18 Insulin Detemir [Levemir] 25 unit SUBCUT DAILY 07/09/18 zolpidem 10 mg tablet 10 mg PO QHS PRN #30 tab 02/11/19 albuterol sulfate HFA 90 2 puff INHALATION Q6H PRN #8.5 g 02/16/19 mcg/actuation aerosol inhaler Nifedipine [Nifedipine ER] 60 mg PO BID 02/18/19 Famotidine 20 mg PO BID PRN PRN 02/20/19 Prednisone 5 mg PO DAILY 02/20/19 Surgical History: Surgical History (Last Reviewed 02/20/19 @ 15:35 by Reyes Montes DO) Renal transplant recipient (Inactive) Z94.0 History of amputation of toe Z89.429 History of eye surgery Z98.890 Retina History of kidney transplant Z94.0 2011 Surgical History: appendectomy, - - Status post kidney transplant, poor wound debridement, diverting sigmoid colostomy on 07/06/2017, reversed on 07/07/2017, percutaneous tracheostomy, no longer has, left TMA Psychiatric History: No pertinent psych hx SECOND CUTTER History: No pertinent SECOND CUTTER history Smoking Status: Former smoker Tobacco Use: Cigarettes Drugs: Marijuana - occassional - *Family History Maternal Family History: Family History (Last Reviewed 02/20/19 @ 15:35 by Reyes Montes DO) Mother Asthma Hypertension Father Myocardial infarction History Items: Diabetes, Hypertension Paternal Family History: Family History (Last Reviewed 02/20/19 @ 15:35 by Reyes Montes DO) Mother Asthma Hypertension Father Myocardial infarction History Items: No pertinent history Review of Systems Constitutional: Reports: Anorexia, Chills. Denies: Fever Eyes: Denies: Blurred vision, Double vision HEENT: Denies: Head Aches, Sinus Congestion, Sinus Drainage Cardiovascular: Denies: Chest Pain, Palpitations Respiratory: Denies: Cough, Shortness of breath at rest, Sputum production Gastrointestinal: Reports: Abdominal Pain, Nausea, Vomiting. Denies: Diarrhea Genitourinary: Denies: Dysuria Musculoskeletal: Denies: Joint Pain, Joint Tenderness Skin: Denies: Rash, Wounds Neurological: Denies: Numbness, Tingling, Focal weakness Psychiatric: Denies: Anxiety, Depression Endocrine: Denies: Change in Body Habitus, Heat/ Cold Intolerance Hematologic/ Lymphatic: Denies: Easy Bruising, Easy Bleeding, Hx of blood clot Comment: A 10 point review of systems were negative except as mentioned in the history of present illness and the other review of systems. VTE Information - Inpt Only VTE Present on Admission: No VTE Mechan Device Prophylaxis: None VTE Pharm Prophylaxis ordered?: No Reason prophylaxis not ordered:: Procedure Not Indicated Patient Problems: Active and Suspected Problems (Last Reviewed 10/24/18 @ 15:12 by Amada Levi) Nausea (Acute) - Physical Exam General: Alert, No apparent distress, - - uncomfortable HEENT: Atraumatic, Normocephalic Oral: Moist Mucosa, No Gingival or Mucosal Lesions/ Ulcerations Neck: No Nodes, Thyroid Normal Size and Texture Lungs: Clear to auscultation, Normal air movement, No rhonchi, No wheeze Cardiovascular: Regular rate, Regular Rhythm, Normal S1, Normal S2 Abdomen: Soft, Non-Distended, Tender - diffuse Extremities: No edema, No Calf Tenderness Skin: No rashes, No breakdown, - - numerous darkened skin lesion throughout. Musculoskeletal: No Tenderness to Palpation of Joints or Extremities, No Muscle Wasting Neurological: - - no clonus. moves all extremities spontanesouly. Psych/Mental Status: Normal Affect, Appropriate Vital Signs Temp Pulse Resp BP Pulse Ox 37.3 C 81 14 166/84 H 98 02/20/19 14:39 02/20/19 14:39 02/20/19 14:39 02/20/19 14:39 02/20/19 14:39 Oxygen Delivery Method Room Air Weight: 77.8 kg Body Mass Index (BMI) 27.6 Finger Stick Blood Glucose 176 Intake and Output for Last 24 Hours 02/18/19 02/19/19 02/20/19 23:59 23:59 23:59 Intake Total 1000 / 1000 Balance 1000 / 1000 Laboratory Tests Past 24 Hrs 02/20/19 02/20/19 02/20/19 06:10 06:10 07:05 WBC 6.0 RBC 4.92 Hgb 13.9 Hct 41.5 MCV 84.3 MCH 28.3 MCHC 33.5 RDW Std Deviation 46.6 H RDW Coeff of Sahra 15.4 H Plt Count 244 MPV 11.8 Immature Gran % (Auto) 0.200 Neut % (Auto) 83.8 H Lymph % (Auto) 8.1 L [place] % (Auto) 7.2 Eos % (Auto) 0.2 Baso % (Auto) 0.5 Absolute Neuts (auto) 5.0 Absolute Lymphs (auto) 0.48 L Nucleated RBC % 0 Differential Comment SCANNED Sodium Cancelled 135 L Potassium Cancelled 4.6 Chloride Cancelled 107 Carbon Dioxide Cancelled 22.0 Anion Gap Cancelled 6 BUN Cancelled 48 H Creatinine Cancelled 2.66 H Estim Creat Clear Calc Cancelled 26.32 Est GFR (MDRD) Af Amer Cancelled 26 L Est GFR (MDRD) Non-Af Cancelled 21 L BUN/Creatinine Ratio Cancelled 18.0 Glucose Cancelled 293 H Calcium Cancelled 9.0 Total Bilirubin Cancelled 0.80 AST Cancelled 8 L ALT Cancelled 12 L Alkaline Phosphatase Cancelled 88 Troponin I Cancelled < 0.015 Total Protein Cancelled 8.6 H Albumin Cancelled 3.3 Globulin Cancelled 5.3 H Albumin/Globulin Ratio Cancelled 0.6 L Lipase Cancelled 71 L Urine Color Urine Clarity Urine pH Ur Specific [place] Urine Protein Urine Glucose (UA) Urine Ketones Urine Occult Blood Urine Nitrite Urine Bilirubin Urine Urobilinogen Ur Leukocyte Esterase Urine RBC Urine WBC Ur Squamous Epith Cells Urine Bacteria Urine Mucus 02/20/19 07:22 WBC RBC Hgb Hct MCV MCH MCHC RDW Std Deviation RDW Coeff of Sahra Plt Count MPV Immature Gran % (Auto) Neut % (Auto) Lymph % (Auto) [place] % (Auto) Eos % (Auto) Baso % (Auto) Absolute Neuts (auto) Absolute Lymphs (auto) Nucleated RBC % Differential Comment Sodium Potassium Chloride Carbon Dioxide Anion Gap BUN Creatinine Estim Creat Clear Calc Est GFR (MDRD) Af Amer Est GFR (MDRD) Non-Af BUN/Creatinine Ratio Glucose Calcium Total Bilirubin AST ALT Alkaline Phosphatase Troponin I Total Protein Albumin Globulin Albumin/Globulin Ratio Lipase Urine Color Yellow Urine Clarity Clear Urine pH 5.0 Ur Specific [place] 1.020 Urine Protein 100 H Urine Glucose (UA) 250 H Urine Ketones 15 H Urine Occult Blood 250 H Urine Nitrite Negative Urine Bilirubin Negative Urine Urobilinogen Normal Ur Leukocyte Esterase Negative Urine RBC 10-25 SEEN Urine WBC 0-5 SEEN Ur Squamous Epith Cells 0 SEEN Urine Bacteria 0 SEEN Urine Mucus 0 SEEN Assessment/Plan All Active Problems (Last Reviewed 10/24/18 @ 15:12 by Amada Levi) Nausea (Acute) Acute pain due to trauma (Acute) Sinusitis (Resolved) Severe sepsis (Resolved) HCAP (healthcare-associated pneumonia) (Resolved) Legionella pneumonia (Resolved) Acute respiratory failure with hypoxia (Resolved) NEL (acute kidney injury) (Acute) 1. nausea * no active vomiting * supportive mgmt * etiology unclear: Be diabetic gastroparesis versus gastroenteritis versus iatrogenic. Patient states that she does smoke marijuana occasionally but last smoked was over a week ago so seem to be unlikely to be contributing to cannabinoid hyperemesis. * avoid potentiating medications such as narcotics * IVF 2. DM1 * continue Basal insulin * hold off on scheduled prandial insulin for now, but will have SSI, until taking adequate PO 3. Renal transplant: * continue home antirejection medications. 4. VTE prophylaxis: low risk as observation status at this time. Code Visit OBSV E&M: [id number] Initial observation care L3
[2019-02-20] MEDS: 0.9% NaCl Peripheral Flush Adult/Peds IV (17:02)
[2019-02-20] MEDS: 0.9% Normal Saline 1,000 ML 125 ML IV (17:08)
[2019-02-20] MEDS: Acetaminophen 325 MG Tablet 650 MG PO (17:42)
[2019-02-20 17:51] LABS: Bedside Glucose 288 mg/dL (70-110)
[2019-02-20] MEDS: Gabapentin 300 MG Capsule PO (22:17)
[2019-02-20] MEDS: NIFEdipine 60 MG Tablet PO (22:18)
[2019-02-20 22:31] LABS: Bedside Glucose 241 mg/dL (70-110)
[2019-02-20] MEDS: Zolpidem Tartrate 5 MG Tablet PO (23:08)
[2019-02-21 02:20] VITALS: BP 170/73; PULSE 85; RESP 16; TEMP 37.2; O2SAT 99
[2019-02-21] MEDS: 0.9% NaCl Peripheral Flush Adult/Peds IV ×4 (06:41→17:28)
[2019-02-21] MEDS: Ondansetron 4 MG/2 ML Vial IV (06:41)
[2019-02-21 06:51] LABS: Bedside Glucose 216 mg/dL (70-110)
[2019-02-21 07:00] LABS: Anion Gap 11 (5-15); BUN 42 mg/dL (7-18); BUN/Creat Ratio 17.5 RATIO (10-20); Chloride 111 mmol/L (98-107); EST Glomerular Filtration Rate 24 mL/min (>60); Est Glom Filt Rate - Afr Amer 29 mL/min (>60); Estimated Creatinine Clearance 29.17 ml/min; Glucose 225 mg/dL (74-106); Potassium 4.5 mmol/L (3.5-5.1); Sodium Level 140 mmol/L (136-145)
[2019-02-21 08:17] VITALS: BP 161/74; PULSE 85; RESP 16; TEMP 37; O2SAT 100
[2019-02-21] MEDS: Mycophenolate Mofetil 250 MG Capsule 500 MG PO ×2 (08:20→21:30)
[2019-02-21] MEDS: Tacrolimus Anhydrous 1 MG Capsule 2 MG PO ×2 (08:20→21:31)
[2019-02-21] MEDS: Carvedilol 25 MG Tablet PO ×2 (08:21→21:30)
[2019-02-21] MEDS: predniSONE 5 MG Tablet PO (08:21)
[2019-02-21] MEDS: NIFEdipine 60 MG Tablet PO ×2 (08:21→21:31)
[2019-02-21 08:26] VITALS: PULSE 90
[2019-02-21] MEDS: Acetaminophen 325 MG Tablet 650 MG PO ×2 (08:41→21:54)
--- NOTE | 2019-02-21 09:22 | PN_ITS ---
Patient Problems: Active and Suspected Problems (Last Reviewed 02/20/19 @ 15:35 by Reyes Montes DO) Nausea (Acute) Subjective: Still with nausea. No vomiting. Vitals/I&O's: Vital Signs Temp Pulse Resp BP Pulse Ox 37.0 C 90 16 161/74 H 100 02/21/19 08:17 02/21/19 08:26 02/21/19 08:17 02/21/19 08:17 02/21/19 08:17 Oxygen Delivery Method Room Air Weight: 77.8 kg Body Mass Index (BMI) 27.6 Finger Stick Blood Glucose 176 Intake and Output for Last 24 Hours 02/19/19 02/20/19 02/21/19 23:59 23:59 23:59 Intake Total 1010 / 1130 1620.00 / 1620.00 Output Total 450 / 450 Balance 1010 / 1130 1170.00 / 1170.00 General: Alert, No apparent distress HEENT: Atraumatic, Normocephalic Oral: Moist Mucosa, No Gingival or Mucosal Lesions/ Ulcerations Neck: No Nodes, Thyroid Normal Size and Texture Lungs: Clear to auscultation, Normal air movement, No rhonchi, No wheeze, No rales Cardiovascular: Regular rate, Regular Rhythm, Normal S1, Normal S2, No murmurs Abdomen: Bowel Sounds Present, Soft, Non-Distended, Tender Extremities: No edema, No Calf Tenderness Musculoskeletal: Cachexia Psych/Mental Status: Anxious, Flat Affect Laboratory Results 02/20/19 17:46: POC Glucose 288 H 02/20/19 22:14: POC Glucose 241 H 02/21/19 06:20: Sodium 140, Potassium 4.5, Chloride 111 H, Carbon Dioxide 18.0 L , Anion Gap 11, BUN 42 H, Creatinine 2.40 H, Estim Creat Clear Calc 29.17, Est GFR (MDRD) Af Amer 29 L, Est GFR (MDRD) Non-Af 24 L, BUN/Creatinine Ratio 17.5, Glucose 225 H, Calcium 9.0 02/21/19 06:33: POC Glucose 216 H Current Medications Acetaminophen (Tylenol) 650 mg PO Q6H PRN PRN PRN Reason: Mild Pain (1-3)/Temp > 100.7 F Last Admin: 02/21/19 08:41 Dose: 650 mg Documented by: Acetaminophen (Tylenol) 650 mg RECTAL Q4H PRN PRN PRN Reason: Mild Pain (1-3)/Temp > 100.7 F Albuterol Sulfate (Ventolin Aerosols) 2.5 mg INHALATION Q6H PRN PRN Reason: shortness of breath or wheezin Carvedilol (Coreg) 25 mg PO BID [facility] Last Admin: 02/21/19 08:21 Dose: 25 mg Documented by: Dextrose (D50w Syringe) 0 gm IV X1 PRN; Protocol PRN Reason: Hypoglycemia Famotidine (Pepcid) 20 mg PO DAILY PRN PRN PRN Reason: HEARTBURN Gabapentin (Neurontin) 300 mg PO DAILY@2200 [facility] Last Admin: 02/20/19 22:17 Dose: 300 mg Documented by: Glucagon () 1 mg IM .X1 PRN PRN Reason: Hypoglycemia Sodium Chloride () 1,000 mls @ 100 mls/hr IV .Q10H [facility] Insulin Glargine (Lantus (Bkc)) 25 units SC DAILY@2200 [facility] Last Admin: 02/20/19 22:24 Dose: Not Given Documented by: Insulin Human Lispro (Humalog Kwikpen (Bkc)) 0 unit SC TIDAC [facility]; Protocol Last Admin: 02/21/19 06:45 Dose: Not Given Documented by: Metoclopramide HCl (Reglan) 5 mg IV Q6 [facility] Mycophenolate Mofetil (Cellcept) 500 mg PO BID [facility] Last Admin: 02/21/19 08:20 Dose: 500 mg Documented by: Nifedipine (Procardia Xl) 60 mg PO BID [facility] Last Admin: 02/21/19 08:21 Dose: 60 mg Documented by: Ondansetron HCl (Zofran) 4 mg IV Q8H PRN PRN PRN Reason: NAUSEA/VOMITING Last Admin: 02/21/19 06:41 Dose: 4 mg Documented by: Prednisone () 5 mg PO DAILY@0800 [facility] Last Admin: 02/21/19 08:21 Dose: 5 mg Documented by: Sodium Chloride () 10 - 40 ml IV UD PRN PRN Reason: SALINE FLUSH Last Admin: 02/21/19 06:41 Dose: 10 ml Documented by: Tacrolimus (Prograf) 2 mg PO BID [facility] Last Admin: 02/21/19 08:20 Dose: 2 mg Documented by: Zolpidem Tartrate (Ambien (Generic)) 5 mg PO QHS PRN PRN Reason: INSOMNIA Last Admin: 02/20/19 23:08 Dose: 5 mg Documented by: Medical Necessity - Tobacco Use Smoking Status: Former smoker Tobacco Use: Cigarettes Assessment/Plan All Active Problems (Last Reviewed 02/20/19 @ 15:35 by Reyes Montes DO) Nausea (Acute) Acute pain due to trauma (Acute) Sinusitis (Resolved) Severe sepsis (Resolved) HCAP (healthcare-associated pneumonia) (Resolved) Legionella pneumonia (Resolved) Acute respiratory failure with hypoxia (Resolved) NEL (acute kidney injury) (Acute) 1. nausea * no active vomiting * supportive mgmt * etiology unclear: Be diabetic gastroparesis versus gastroenteritis versus iatrogenic. Patient states that she does smoke marijuana occasionally but last smoked was over a week ago so seem to be unlikely to be contributing to cannabinoid hyperemesis. * avoid potentiating medications such as narcotics * IVF * start metoclopramide scheduled, advised patient of the risk, though low, of tardive dyskinesia. She agreed to proceed. * Had GES in October, that was negative. Consider repeating Saturday if still here with symptoms. 2. DM1 * continue Basal insulin * hold off on scheduled prandial insulin for now, but will have SSI, until taking adequate PO 3. Renal transplant: * continue home antirejection medications. 4. VTE prophylaxis:given lack of mobility and unclear hospitalization timeline, will initiate SQ LMWH. Code Visit Inpatient E&M: 71267 Subs Hosp L2
[2019-02-21] MEDS: 0.9% Normal Saline 1,000 ML 100 ML IV ×2 (10:16→21:29)
[2019-02-21] MEDS: Insulin Lispro 100 UNIT/ML INSULN.PEN SC ×2 (11:27→16:19)
[2019-02-21] MEDS: Metoclopramide 10 MG/2 ML Vial 5 MG IV ×3 (11:27→23:46)
[2019-02-21 11:30] LABS: Bedside Glucose 269 mg/dL (70-110)
[2019-02-21 14:08] VITALS: BP 141/59; PULSE 80; RESP 18; TEMP 37.3; O2SAT 99
[2019-02-21 16:26] LABS: Bedside Glucose 252 mg/dL (70-110)
[2019-02-21] MEDS: Ensure Clear 120 ML Liquid PO (17:27)
[2019-02-21 19:40] VITALS: BP 163/73; PULSE 82; RESP 16; TEMP 36.9; O2SAT 100
[2019-02-21] MEDS: Gabapentin 300 MG Capsule PO (21:31)
[2019-02-21 21:40] LABS: Bedside Glucose 193 mg/dL (70-110)
[2019-02-21] MEDS: Zolpidem Tartrate 5 MG Tablet PO (21:54)
[2019-02-22 02:15] VITALS: BP 138/57; PULSE 77; RESP 16; TEMP 36.6; O2SAT 100
[2019-02-22] MEDS: Metoclopramide 10 MG/2 ML Vial 5 MG IV ×2 (05:57→11:29)
[2019-02-22 06:45] LABS: Anion Gap 8 (5-15); BUN 35 mg/dL (7-18); BUN/Creat Ratio 15.4 RATIO (10-20); Calcium,Total 8.5 mg/dL (8.5-10.1); Chloride 116 mmol/L (98-107); Creatinine, Serum 2.28 mg/dL (0.55-1.02); EST Glomerular Filtration Rate 25 mL/min (>60); Est Glom Filt Rate - Afr Amer 31 mL/min (>60); Glucose 193 mg/dL (74-106); Potassium 4.4 mmol/L (3.5-5.1); Sodium Level 143 mmol/L (136-145)
[2019-02-22] MEDS: 0.9% Normal Saline 1,000 ML 100 ML IV (06:52)
[2019-02-22 06:55] LABS: Bedside Glucose 200 mg/dL (70-110)
[2019-02-22 08:37] VITALS: BP 152/69; PULSE 78; RESP 18; TEMP 37.4; O2SAT 100
--- NOTE | 2019-02-22 08:44 | PCM.PN.HOSP ---
Patient Problems: Active and Suspected Problems (Last Reviewed 02/20/19 @ 15:35 by Reyes Montes DO) Nausea (Acute) Subjective: Feels much better. Able to drink without difficulty. States that she has been told that she has gastroparesis in [place]. Vitals/I&O's: Vital Signs Temp Pulse Resp BP Pulse Ox 37.4 C H 78 18 152/69 H 100 02/22/19 08:37 02/22/19 08:37 02/22/19 08:37 02/22/19 08:37 02/22/19 08:37 Oxygen Delivery Method Room Air Weight: 77.8 kg Body Mass Index (BMI) 27.6 Finger Stick Blood Glucose 176 Intake and Output for Last 24 Hours 02/20/19 02/21/19 02/22/19 23:59 23:59 23:59 Intake Total 1010 / 1130 2620.00 / 2860.00 1418.33 / 1418.33 Output Total 1450 / 1450 200 / 200 Balance 1010 / 1130 1170.00 / 1410.00 1218.33 / 1218.33 General: Alert, No apparent distress HEENT: Atraumatic, Normocephalic Oral: Moist Mucosa, No Gingival or Mucosal Lesions/ Ulcerations Neck: No Nodes, Thyroid Normal Size and Texture Lungs: Clear to auscultation, Normal air movement, No rhonchi, No wheeze, No rales Cardiovascular: Regular rate, Regular Rhythm, Normal S1, Normal S2, No murmurs Abdomen: Bowel Sounds Present, Soft, - - LLQ tenderness Psych/Mental Status: Normal Affect, Appropriate Laboratory Results 02/21/19 11:23: POC Glucose 269 H 02/21/19 16:17: POC Glucose 252 H 02/21/19 21:36: POC Glucose 193 H 02/22/19 05:20: Sodium 143, Potassium 4.4, Chloride 116 H, Carbon Dioxide 19.0 L, Anion Gap 8, BUN 35 H, Creatinine 2.28 H, Estim Creat Clear Calc 30.70, Est GFR (MDRD) Af Amer 31 L, Est GFR (MDRD) Non-Af 25 L, BUN/Creatinine Ratio 15.4, Glucose 193 H, Calcium 8.5 02/22/19 06:50: POC Glucose 200 H Current Medications Acetaminophen (Tylenol) 650 mg PO Q6H PRN PRN PRN Reason: Mild Pain (1-3)/Temp > 100.7 F Last Admin: 02/21/19 21:54 Dose: 650 mg Documented by: Acetaminophen (Tylenol) 650 mg RECTAL Q4H PRN PRN PRN Reason: Mild Pain (1-3)/Temp > 100.7 F Albuterol Sulfate (Ventolin Aerosols) 2.5 mg INHALATION Q6H PRN PRN Reason: shortness of breath or wheezin Carvedilol (Coreg) 25 mg PO BID [facility] Last Admin: 02/21/19 21:30 Dose: 25 mg Documented by: Dextrose (D50w Syringe) 0 gm IV X1 PRN; Protocol PRN Reason: Hypoglycemia Enoxaparin Sodium (Lovenox) 30 mg SC DAILY@0600 [facility] Last Admin: 02/22/19 06:02 Dose: Not Given Documented by: Famotidine (Pepcid) 20 mg PO DAILY PRN PRN PRN Reason: HEARTBURN Gabapentin (Neurontin) 300 mg PO DAILY@2200 [facility] Last Admin: 02/21/19 21:31 Dose: 300 mg Documented by: Glucagon () 1 mg IM .X1 PRN PRN Reason: Hypoglycemia Sodium Chloride () 1,000 mls @ 100 mls/hr IV .Q10H [facility] Last Admin: 02/22/19 06:52 Dose: 100 mls/hr Documented by: Insulin Glargine (Lantus (Bkc)) 25 units SC DAILY@2200 [facility] Last Admin: 02/21/19 21:36 Dose: Not Given Documented by: Insulin Human Lispro (Humalog Kwikpen (Bkc)) 0 unit SC TIDAC [facility]; Protocol Last Admin: 02/22/19 06:51 Dose: Not Given Documented by: Metoclopramide HCl (Reglan) 5 mg IV Q6 [facility] Last Admin: 02/22/19 05:57 Dose: 5 mg Documented by: Mycophenolate Mofetil (Cellcept) 500 mg PO BID [facility] Last Admin: 02/21/19 21:30 Dose: 500 mg Documented by: Nifedipine (Procardia Xl) 60 mg PO BID [facility] Last Admin: 02/21/19 21:31 Dose: 60 mg Documented by: Nutritional Formula (Lactose Free) (Ensure Clear) 120 ml PO TIDCM [facility] Last Admin: 02/22/19 08:37 Dose: Not Given Documented by: Ondansetron HCl (Zofran) 4 mg IV Q8H PRN PRN PRN Reason: NAUSEA/VOMITING Last Admin: 02/21/19 06:41 Dose: 4 mg Documented by: Prednisone () 5 mg PO DAILY@0800 [facility] Last Admin: 02/21/19 08:21 Dose: 5 mg Documented by: Sodium Chloride () 10 - 40 ml IV UD PRN PRN Reason: SALINE FLUSH Last Admin: 02/21/19 17:28 Dose: 40 ml Documented by: Tacrolimus (Prograf) 2 mg PO BID [facility] Last Admin: 02/21/19 21:31 Dose: 2 mg Documented by: Zolpidem Tartrate (Ambien (Generic)) 5 mg PO QHS PRN PRN Reason: INSOMNIA Last Admin: 02/21/19 21:54 Dose: 5 mg Documented by: Medical Necessity - Tobacco Use Smoking Status: Former smoker Tobacco Use: Cigarettes Assessment/Plan All Active Problems (Last Reviewed 02/20/19 @ 15:35 by Reyes Montes DO) Nausea (Acute) Acute pain due to trauma (Acute) Sinusitis (Resolved) Severe sepsis (Resolved) HCAP (healthcare-associated pneumonia) (Resolved) Legionella pneumonia (Resolved) Acute respiratory failure with hypoxia (Resolved) NEL (acute kidney injury) (Acute) 1. gastroparesis, suspected resolved likely diabetic gastroparesis no active vomiting supportive mgmt Had GES in October, that was negative. Consider repeating Saturday if still here with symptoms. Will advance patient's diet this morning and if she tolerates that then she can be discharged. Patient already has ondansetron at home and would add as needed metoclopramide if still has a refractory nausea and vomiting. I did advise patient to avoid any further smoking of marijuana. Patient states that she had last smoked about a couple weeks ago when I informed her that do not feel that there was directly treatable to this around. Patient states that this seems to be more associated with her menstrual cycles. Patient has follow-up appointment with gynecology next month. Advised her to talk to them about possible control to see if that may help with this gastroparesis but she will need to get clarification from her transplant doctor to see if those medications would be compatible with her antirejection medications. 2. DM1 continue Basal insulin and resume prandial insulin hold off on scheduled prandial insulin for now, but will have SSI, until taking adequate PO 3. Renal transplant: continue home antirejection medications. Patient to follow-up with next month. Patient states that she will also be following up with her transplant physicians in [place]. 4. VTE prophylaxis:given lack of mobility and unclear hospitalization timeline, will initiate SQ LMWH. Code Visit OBSV E&M: 96526 Subsequent observation care L2
[2019-02-22] MEDS: Mycophenolate Mofetil 250 MG Capsule 500 MG PO (08:48)
[2019-02-22] MEDS: Tacrolimus Anhydrous 1 MG Capsule 2 MG PO (08:49)
[2019-02-22] MEDS: NIFEdipine 60 MG Tablet PO (08:49)
[2019-02-22] MEDS: predniSONE 5 MG Tablet PO (08:49)
[2019-02-22] MEDS: Carvedilol 25 MG Tablet PO (08:50)
--- NOTE | 2019-02-22 08:53 | PCM.DC ---
- Discharge Diagnoses Current Active Problems: Current Active and Chronic Problems (Last Reviewed 02/20/19 @ 15:35 by Reyes Montes DO) Nausea (Acute) You will use the following diet at home:: Calorie/Carbohydrate Controlled (specify 1200, 1400, etc) - 1800, Other - frequent small meals Your food should be the consistency of: Regular Your liquids should be the consistency of: Regular/Thin Call your doctor if you observe: - - intractable nausea and vomiting. Additional Instructions: No marijuana. Allergies/Adverse Reactions: Allergies furosemide [From Lasix] Allergy (Verified 02/18/19 17:48) Hives Medications to take at Discharge Carvedilol [Coreg] 25 mg PO BID 01/20/18 Gabapentin [Neurontin] 300 mg PO DAILY 01/20/18 Mycophenolate Mofetil 500 mg PO BID 01/20/18 Tacrolimus Anhydrous [Prograf] 2 mg PO BID 01/20/18 Insulin Aspart [Novolog Flexpen] 8 - 18 units SUBCUT TIDCM 01/27/18 Insulin Detemir [Levemir] 25 unit SUBCUT DAILY 07/09/18 zolpidem 10 mg tablet 10 mg PO QHS PRN #30 tab 02/11/19 albuterol sulfate HFA 90 mcg/actuation aerosol inhaler 2 puff INHALATION Q6H PRN #8.5 g 02/16/19 Nifedipine [Nifedipine ER] 60 mg PO BID 02/18/19 Famotidine 20 mg PO BID PRN PRN 02/20/19 Prednisone 5 mg PO DAILY 02/20/19 Acetaminophen [Tylenol Tablet] 650 mg PO Q6H PRN PRN tablet 02/22/19 Metoclopramide [Reglan] 10 mg PO 4X/DAY PRN #20 tab 02/22/19 Ondansetron [Ondansetron Odt] 8 mg PO TID PRN #15 tab.rapdis 02/22/19 The following prescriptions were given: Ondansetron [Ondansetron Odt] 8 mg PO TID PRN #15 tab.rapdis PRN Reason: nausea and/or vomiting Transmission Status: Pending to [facility] Metoclopramide [Reglan] 10 mg PO 4X/DAY PRN #20 tab PRN Reason: nausea and/or vomiting Transmission Status: Pending to [facility] Primary Care Physician: Aster Martin MD [Primary Care Provider] - 03/05/19 Test Results: Test results from this visit will be discussed in further detail at your follow-up appointment, if applicable. Please Follow Up With: Walker Andino MD When: next scheduled appointment Please Follow Up With: Gynecology When: next scheduled appointment Proposed Discharge Date: 02/22/19
--- NOTE | 2019-02-22 08:56 | DS.PCM_ITS ---
Discharge Date and Diagnosis - Problem List Patient Problems: Active and Suspected Problems (Last Reviewed 02/20/19 @ 15:35 by Reyes Montes DO) Gastroparesis (Acute) Nausea (Acute) Date of Admission: 02/20/19 Date of Discharge: 02/22/19 - Primary Discharge Diagnosis Active and Suspected Problems (Last Reviewed 02/20/19 @ 15:35 by Reyes Montes DO) Gastroparesis (Acute) Nausea (Acute) 1. gastroparesis, suspected * resolved * likely diabetic gastroparesis * no active vomiting * supportive mgmt * Had GES in October, that was negative. Consider repeating Saturday if still here with symptoms. * Will advance patient's diet this morning and if she tolerates that then she can be discharged. Patient already has ondansetron at home and would add as needed metoclopramide if still has a refractory nausea and vomiting. I did advise patient to avoid any further smoking of marijuana. Patient states that she had last smoked about a couple weeks ago when I informed her that do not feel that there was directly treatable to this around. Patient states that this seems to be more associated with her menstrual cycles. Patient has follow-up appointment with gynecology next month. Advised her to talk to them about possible control to see if that may help with this gastroparesis but she will need to get clarification from her transplant doctor to see if those medications would be compatible with her antirejection medications. 2. DM1 * continue Basal insulin and resume prandial insulin * hold off on scheduled prandial insulin for now, but will have SSI, until taking adequate PO 3. Renal transplant: * continue home antirejection medications. * Patient to follow-up with next month. Patient states that she will also be following up with her transplant physicians in [place]. - Secondary Discharge Diagnosis Chronic Problems (Last Reviewed 02/20/19 @ 15:35 by Reyes Montes DO) Acute kidney injury superimposed on chronic kidney disease (Chronic) Legionnaires' disease (Chronic) History of chronic pancreatitis (Chronic) Neuropathy (Chronic) Kidney disease (Chronic) High cholesterol (Chronic) High blood pressure (Chronic) Diabetes (Chronic) Chronic bronchitis (Chronic) Cataracts, bilateral (Chronic) Anemia (Chronic) Seasonal allergies (Chronic) Hyperglycemia due to type 1 diabetes mellitus (Chronic) Hyperglycemia without ketosis (Chronic) DM type 1 (diabetes mellitus, type 1) (Chronic) 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 Bladder wall thickening. Electronically Signed: Roger Griffith, at 9:12 EDT , Service support , Operations: None Procedures: None Summary of Care Provided: The patient is a 38 year old F presents with intractable nausea and vomiting. Patient had no vomiting since arrival but was nauseated. Patient was treated supportively initially with ondansetron but yesterday concern was for gastroparesis given patient is type I diabetic patient was put on scheduled metoclopramide. Today, the patient is feeling much better and has been low erating the clear liquids. Patient did have a gastric imaging study performed in October which was negative but patient has been told that she has gastroparesis in the past and I feel that this is gastroparesis. Patient states that it seems to be more trouble with her menstrual cycles. Patient is to follow-up with gynecology in the next month. Advised her to discuss with her office auditor about possible control but she will also need to clarify with her transplant physician if that would be compatible with her antirejection medications. Patient does endorse that she smokes marijuana but does so infrequently and had not done so in about 2 weeks. I told her that it is likely not treatable to this bout of nausea and vomiting but I did advise her to stop completely as it could potentially exacerbate an episode. [] Patient Problems: Active and Suspected Problems (Last Reviewed 02/20/19 @ 15:35 by Reyes Montes DO) Gastroparesis (Acute) Nausea (Acute) - Physical Exam Vital Signs Temp Pulse Resp BP Pulse Ox 37.4 C H 78 18 152/69 H 100 02/22/19 08:37 02/22/19 08:37 02/22/19 08:37 02/22/19 08:37 02/22/19 08:37 Oxygen Delivery Method Room Air Weight: 77.8 kg Body Mass Index (BMI) 27.6 Finger Stick Blood Glucose 176 Intake and Output for Last 24 Hours 02/20/19 02/21/19 02/22/19 23:59 23:59 23:59 Intake Total 1010 / 1130 2620.00 / 2860.00 1418.33 / 1418.33 Output Total 1450 / 1450 200 / 200 Balance 1010 / 1130 1170.00 / 1410.00 1218.33 / 1218.33 Laboratory Tests Past 24 Hrs 02/22/19 05:20 Sodium 143 Potassium 4.4 Chloride 116 H Carbon Dioxide 19.0 L Anion Gap 8 BUN 35 H Creatinine 2.28 H Estim Creat Clear Calc 30.70 Est GFR (MDRD) Af Amer 31 L Est GFR (MDRD) Non-Af 25 L BUN/Creatinine Ratio 15.4 Glucose 193 H Calcium 8.5 POC Glucose 02/22/19 02/21/19 02/21/19 06:50 21:36 16:17 POC Glucose 200 H 193 H 252 H 02/21/19 11:23 POC Glucose 269 H Discharge Diet: 1800 Calorie Control Diet Discharge Activity: Return to Normal Activity Call your doctor if you observe: - - intractable nausea and vomiting. Home Medications: Medications to take at Discharge Carvedilol [Coreg] 25 mg PO BID 01/20/18 Gabapentin [Neurontin] 300 mg PO DAILY 01/20/18 Mycophenolate Mofetil 500 mg PO BID 01/20/18 Tacrolimus Anhydrous [Prograf] 2 mg PO BID 01/20/18 Insulin Aspart [Novolog Flexpen] 8 - 18 units SUBCUT TIDCM 01/27/18 Insulin Detemir [Levemir] 25 unit SUBCUT DAILY 07/09/18 zolpidem 10 mg tablet 10 mg PO QHS PRN #30 tab 02/11/19 albuterol sulfate HFA 90 mcg/actuation aerosol inhaler 2 puff INHALATION Q6H PRN #8.5 g 02/16/19 Nifedipine [Nifedipine ER] 60 mg PO BID 02/18/19 Famotidine 20 mg PO BID PRN PRN 02/20/19 Prednisone 5 mg PO DAILY 02/20/19 Acetaminophen [Tylenol Tablet] 650 mg PO Q6H PRN PRN tablet 02/22/19 Metoclopramide [Reglan] 10 mg PO 4X/DAY PRN #20 tab 02/22/19 Ondansetron [Ondansetron Odt] 8 mg PO TID PRN #15 tab.rapdis 02/22/19 Following Prescrptions Were Given to Patient: Ondansetron [Ondansetron Odt] 8 mg PO TID PRN #15 tab.rapdis PRN Reason: nausea and/or vomiting Transmission Status: Pending to [facility] Metoclopramide [Reglan] 10 mg PO 4X/DAY PRN #20 tab PRN Reason: nausea and/or vomiting Transmission Status: Pending to [facility] Primary Care Physician: Aster Martin MD [Primary Care Provider] - 03/05/19 Please Follow Up With: Walker Andino MD When: next scheduled appointment Please Follow Up With: Gynecology When: next scheduled appointment Disposition: Home Minutes spent on discharge:: 32 Patient Condition:: Good Medical Necessity - Tobacco Use Smoking Status: Former smoker Tobacco Use: Cigarettes Meaningful Use Info Meaningful Use Diagnoses (Choose all that apply): None applicable Code Visit OBSV E&M: 18686 Observation care discharge
[2019-02-22] MEDS: Insulin Lispro 100 UNIT/ML INSULN.PEN SC (11:01)
[2019-02-22 11:11] LABS: Bedside Glucose 288 mg/dL (70-110)
[2019-02-22] MEDS: 0.9% NaCl Peripheral Flush Adult/Peds IV (11:29)
[2019-02-22 13:48] VITALS: BP 150/71; PULSE 73; RESP 18; TEMP 37.4; O2SAT 100
== END 2019-02-22 14:20 | disposition home or self-care (01) ==
LOC: ED 05:16 → MS3 10:33
PROVIDERS: Emergency Provider Emergency Medicine; Family Provider Internal Medicine; PCP Internal Medicine
DX: K31.84 Gastroparesis (principal); E10.22 Type 1 diabetes mellitus with diabetic chronic kidney disease; N18.3 Chronic kidney disease, stage 3 (moderate); E10.65 Type 1 diabetes mellitus with hyperglycemia; E78.00 Pure hypercholesterolemia, unspecified; E10.40 Type 1 diabetes mellitus with diabetic neuropathy, unspecified; I12.9 Hypertensive chronic kidney disease with stage 1 through stage 4 chronic kidney disease, or unspecified chronic kidney disease; Z94.0 Kidney transplant status; Z79.899 Other long term (current) drug therapy; Z79.4 Long term (current) use of insulin; Z79.52 Long term (current) use of systemic steroids; Z87.891 Personal history of nicotine dependence
CPT/HCPCS: 36415; 74176; 80048; 80053; 81001; 82962; 83690; 84484; 85025; 93005; 96361; 96374; 96375; 96376; 99218; 99285; J7030; A4216; G0378; J2405

== ENCOUNTER → 2019-03-05 | Outpatient (CLI) | payer MEDICARE, MEDICAID, SELFPAY ==
[2019-02-16 09:51] VITALS: BMI 26.9
[2019-02-20 14:32] VITALS: BMI 27.6
--- NOTE | 2019-03-05 10:20 | BI_ITS ---
MAMMOGRAPHY - BILATERAL SCREENING REASON FOR EXAM: Female, 38 years old. Routine annual screening examination. PERTINENT HISTORY: Grandmother with breast cancer. TECHNIQUE: Digital bilateral breast hanna (3D mammographic acquisition) in the CC and MLO projections. 2-D mediolateral oblique (MLO) and craniocaudad (CC) views of both breasts were obtained. CAD: Full Field Digital Mammography with Computer Added Detection was performed. COMPARISON: None. Baseline examination. FINDINGS: Breast Composition: The breasts are heterogeneously dense, which may obscure small masses. There are no dominant masses or suspicious calcifications. No other significant abnormalities are identified. BI/SCREEN MAMM (CAD) W/HANNA BILAT IMPRESSION: Negative screening mammogram. Yearly followup mammogram recommended. (A) ASSESSMENT CATEGORY: BIRADS Category 1: Negative. A letter regarding these results will be sent to the patient by the facility within 30 days. Approximately 10% of breast cancers are not detected by mammography. A normal mammogram should not delay biopsy of a clinically suspicious abnormality. [id number] Electronically Signed: Roger Griffith, at 13:30 EDT , Service support ,
--- NOTE | 2019-03-05 10:21 | BD_ITS ---
STUDY: DUAL ENERGY X-RAY ABSORPTIOMETRY / DXA REASON FOR EXAM: Female, 38 years old. History of necrotizing fasciitis. No loss of height. TECHNIQUE: Bone Mineral Density (BMD) measurements of lumbar spine and bilateral hips were obtained. COMPARISON: None. FINDINGS: Lumbar Spine (L1-L4): g/cm2 (1.410) / T-score (1.7) / Z-score (1.0) Findings are suggestive of normal bone density with a low fracture risk. Left Femur Total: g/cm2 (0.797) / T-score (-1.7) / Z-score (-2.4) Left Femoral Neck: g/cm2 (0.731) / T-score (-2.2) / Z-score (-2.7) Right Femur Total: g/cm2 (0.917) / T-score (-0.7) / Z-score (-1.5) Right Femoral Neck: g/cm2 (0.873) / T-score (-1.2) / Z-score (-1.7) BD/Dexa Bone Density Study IMPRESSION: The patient is considered osteopenic as outlined below according to World Jordon Organization (WHO) criteria with a moderate fracture risk. Reference Information: The T-score is the number of standard deviations above or below the standard which is normal for young adults at their peak bone mineral density. The World Health Organization (WHO) interprets the T-scores as follows: Above -1 Normal bone density Between -1 and -2.5 Osteopenia Equal to / or below -2.5 Osteoporosis As a practical clinical guideline, osteopenia may be graded as follows: Mild -1 through -1.5 Moderate -1.6 through -2.0 Severe -2.1 through -2.4 The Z-score is the number of standard deviations above or below age-matched controls. A Z-score of less than -1.5 would be considered abnormal. References: 1. NIH Osteoporosis and Related Bone Diseases http://www.osteo.org 2. International Society for Clinical Densitometry http://www.iscd.org 3. National Osteoporosis Foundation http://www.nof.org Electronically Signed: Roger Griffith, at 15:21 EDT , Service support ,
== END | disposition home or self-care (01) ==
LOC: OPBD 10:18
PROVIDERS: Family Provider Internal Medicine; PCP Internal Medicine; Referring Provider Internal Medicine; Visit Provider Internal Medicine
DX: M81.0 Age-related osteoporosis without current pathological fracture (principal); Z12.31 Encounter for screening mammogram for malignant neoplasm of breast
CPT/HCPCS: 77063; 77067; 77080

== ENCOUNTER → 2019-04-28 07:04 | Outpatient (CLI) | payer MEDICARE, MEDICAID, SELFPAY ==
[2019-02-20 14:32] VITALS: BMI 27.6
[2019-04-28 09:23] LABS: ALB/GLOB Ratio 0.8 RATIO (0.9-2.4); AST(SGOT) 11 U/L (15-37); Alanine Aminotransfer ALT/SGPT 12 U/L (13-56); Albumin, Serum 3.6 g/dL (3.2-5.0); Alkaline Phosphatase 66 U/L (45-117); Anion Gap 7 (5-15); BUN 41 mg/dL (7-18); BUN/Creat Ratio 17.5 RATIO (10-20); Calcium,Total 9.4 mg/dL (8.5-10.1); Chloride 110 mmol/L (98-107); Cholesterol 283 mg/dL (200); Creatinine, Serum 2.34 mg/dL (0.55-1.02); EST Glomerular Filtration Rate 24 mL/min (>60); Est Glom Filt Rate - Afr Amer 30 mL/min (>60); Globulin 4.6 g/dL (2.2-4.2); Glucose 144 mg/dL (74-106); High Density Lipoprotein 36 mg/dL; Potassium 3.9 mmol/L (3.5-5.1); Protein, Total 8.2 g/dL (6.4-8.2); Sodium Level 139 mmol/L (136-145); Triglycerides 273 mg/dL; Very Low Density Lipoprotein 55 mg/dL (5-40)
== END ==
PROVIDERS: Family Provider Internal Medicine; PCP Internal Medicine; Referring Provider Internal Medicine Endocrinology, Diabetes & Metabolism; Visit Provider Internal Medicine Endocrinology, Diabetes & Metabolism
DX: E10.9 Type 1 diabetes mellitus without complications (principal)
CPT/HCPCS: 36415; 80053; 80061; 83036; 84443

== ENCOUNTER → 2019-07-29 05:54 | Outpatient (CLI) | payer MEDICARE, MEDICAID, SELFPAY ==
[2019-05-18 08:32] VITALS: BMI 27.6
[2019-07-29 07:15] LABS: ALB/GLOB Ratio 0.8 RATIO (0.9-2.4); AST(SGOT) 22 U/L (15-37); Alanine Aminotransfer ALT/SGPT 24 U/L (13-56); Albumin, Serum 3.4 g/dL (3.2-5.0); Alkaline Phosphatase 69 U/L (45-117); Anion Gap 5 (5-15); BUN 35 mg/dL (7-18); BUN/Creat Ratio 15.8 RATIO (10-20); Calcium,Total 8.5 mg/dL (8.5-10.1); Chloride 111 mmol/L (98-107); Creatinine, Serum 2.21 mg/dL (0.55-1.02); EST Glomerular Filtration Rate 26 mL/min (>60); Est Glom Filt Rate - Afr Amer 32 mL/min (>60); Globulin 4.1 g/dL (2.2-4.2); Glucose 76 mg/dL (74-106); Protein, Total 7.5 g/dL (6.4-8.2); Sodium Level 140 mmol/L (136-145)
== END ==
LOC: LAB.FUTURE 06:04 → LAB 06:05
PROVIDERS: PCP Internal Medicine; Referring Provider Internal Medicine Endocrinology, Diabetes & Metabolism; Visit Provider Internal Medicine Endocrinology, Diabetes & Metabolism
DX: E10.9 Type 1 diabetes mellitus without complications (principal)
CPT/HCPCS: 36415; 80053; 84681

== ENCOUNTER 2019-11-19 19:08 | Inpatient (IN) | payer MEDICARE, MEDICAID, SELFPAY ==
[2019-10-07 15:33] VITALS: BMI 27.6
[2019-11-19 19:09] VITALS: BP 129/70; PULSE 83; RESP 16; TEMP 36.4; O2SAT 96; BMI 29.8
--- NOTE | 2019-11-19 19:36 | CT_ITS ---
STUDY: CT ABDOMEN AND PELVIS WITHOUT CONTRAST REASON FOR EXAM: Female, 38 years old. Recent cyst removal from ovary, nausea vomiting diarrhea dizziness, history of kidney transplant RADIATION DOSAGE (If Supplied By Facility): CTDIvol = ( 6.61 ) mGy, DLP = ( 345.08 ) mGycm TECHNIQUE: Transaxial images were obtained from the dome of the diaphragm to the symphysis pubis without oral contrast, and without intravenous contrast. Sagittal and coronal images were reconstructed. Individualized dose optimization techniques were used for this CT. COMPARISON: 20 February 2019 FINDINGS: Lung bases are clear. There is no intestinal obstruction. Liver, spleen and adrenals are normal. Pancreas is calcified due to prior chronic bronchitis changes. Kidneys are atrophic bilaterally with a normal appearing transplant in the right pelvis. There is a stable-appearing 8 cm cystic structure in the right adnexa and multiple uterine fibroids. There is a 3 cm left ovarian cystic structure. Osseous structures are intact. There is a defect in the left gluteus and overlying soft tissue irregularity, likely decubitus. Appearance is similar to priors. CT/Abdomen/Pelvis without Cont IMPRESSION: 1. No acute findings or change since prior. 2. Bilateral adnexal presumably cystic structures. 3. Renal transplant. 4. Chronic pancreatitis. Electronically Signed: Nila Hendrickson, at 20:37 EDT Tel , Service support ,
--- NOTE | 2019-11-19 19:40 | ED.VISSUMM ---
- ER Visit Summary Date of Service: 11/19/19 Chief Complaint: Abdominal pain History of Present Illness: The patient is a 38 F who presents with abdominal pain for the past week. Patient describes the pain as aching. Patient states the pain is been constant. Patient states the pain is worse over the left upper quadrant but also has pain on the right side of her abdomen. Patient admits to some nausea and vomiting. Patient denies any hematemesis or coffee-ground emesis. Patient admits to some diarrhea and thinks there may have been some blood in her stools today. Patient denies any dysuria or hematuria. Patient states her last menstrual period was 1 week ago. Patient admits to subjective chills but denies any fevers. Patient admits to a mild sore throat. Patient also admits to some mild low back pain. Physical Examination: Vital signs are stable. Patient is afebrile. Patient is in no acute distress. Oral mucosa is pink and moist. Neck is supple. Trachea is midline. There is no JVD. Heart was regular rate and rhythm. Lungs are clear and equal bilaterally. Abdomen is soft. Bowel sounds are normal. There is diffuse tenderness. There is no rebound or guarding noted. Cranial nerves II through XII are intact. There are no focal motor or sensory deficits noted. Extremities are intact. There is no calf tenderness or edema. Test Results: CBC was essentially within normal limits. Comprehensive metabolic profile showed an elevated glucose of 515 with a sodium of 130, anion gap of 14, and CO2 of 18. BUN was 42 and creatinine was 3.77. Urinalysis showed a leukocyte esterase of 100 with 10-25 white blood cells. Serum ketones were small. Serum hCG was negative. CT scan of the abdomen and pelvis was obtained. There is no acute findings. There is chronic pancreatitis. Lipase was ordered and is normal. Emergency Department Course and Treatment: Patient was given IV fluids, morphine, and Zofran initially. Patient was started on insulin drip. Patient was given a dose of Bactrim DS. Case was discussed with the hospitalist. He will admit the patient to ICU. Patient understood and was agreeable with the plan. All questions were answered. Disposition: Admit to ICU Impression: 1. Diabetic ketoacidosis 2. Urinary tract infection This note was generated with [employer] software. It may contain incorrect words, spelling, and punctuation that were not noted in review of the chart prior to signing ED Disposition - Plan for ED Patient: Disposition: Acute Care Hospital [facility] Diagnosis: Diabetic ketoacidosis, Urinary tract infection Referrals: Aster Martin MD [Primary Care Provider] -
[2019-11-19 19:48] LABS: Absolute Lymphocyte Count 0.49 X10^3/uL (0.83-4.51); Absolute Neutrophil Count 2.7 X10^3/uL (2.0-7.7); Basophil# 0.03 X10^3/uL; Basophil% 0.9 % (0-1); Eosinophil# 0.04 X10^3/uL; Eosinophils% 1.1 % (0-5); Hematocrit 43.1 % (37-47); Hemoglobin 14.4 g/dL (12.0-15.0); Lymphocyte # 0.49 X10^3/ul (4.0); Mean Corp Hgb Conc 33.4 g/dL (32-36); Mean Corpuscular Hgb 27.5 pg (27.0-32.0); Mean Corpuscular Volume 82.3 fL (81-99); Mean Platelet Vol. 11.9 fl (6.2-12.0); Monocyte# 0.29 X10^3/uL; Monocyte% 8.3 % (0-10); NRBC Flagged by Analyzer 0 % (0-5); Neutrophil # 2.65 X10^3/uL (2.7-7.7); Neutrophil % 75.4 % (47-70); POSITIVE DIFFERENTIAL YES; Platelet Count 176 K/mm3 (150-450); RBC Distribution Width CV 14.7 % (11.6-14.6); Red Blood Count 5.24 M/mm3 (4.2-5.4); White Blood Count 3.5 K/mm3 (4.4-11.0)
[2019-11-19 19:59] LABS: Internal QC Validated? YES +Cl - CLEAR BKGD; Pregnancy, Serum, hCG Quali. NEGATIVE Negative
[2019-11-19 20:10] LABS: Differential Indicated SCAN CRITERIA MET
[2019-11-19] MEDS: Morphine 4 MG/ML Syringe IV (20:12)
[2019-11-19] MEDS: 0.9% Normal Saline 1,000 ML 1000 ML IV (20:12)
[2019-11-19] MEDS: Ondansetron 4 MG/2 ML Vial IV (20:12)
[2019-11-19 20:14] LABS: Platelet Estimate ADEQUATE (ADEQ)
[2019-11-19 20:15] LABS: Red Cell Morphology NORM C+C NORMAL (NORM C&C)
[2019-11-19 20:17] LABS: ALB/GLOB Ratio 0.7 RATIO (0.9-2.4); AST(SGOT) 18 U/L (15-37); Alanine Aminotransfer ALT/SGPT 12 U/L (13-56); Albumin, Serum 3.1 g/dL (3.2-5.0); Alkaline Phosphatase 57 U/L (45-117); Anion Gap 14 (5-15); BUN 42 mg/dL (7-18); BUN/Creat Ratio 11.1 RATIO (10-20); Calcium,Total 9.5 mg/dL (8.5-10.1); Chloride 98 mmol/L (98-107); Creatinine, Serum 3.77 mg/dL (0.55-1.02); EST Glomerular Filtration Rate 14 mL/min (>60); Est Glom Filt Rate - Afr Amer 17 mL/min (>60); Estimated Creatinine Clearance 18.57 ml/min; Globulin 4.4 g/dL (2.2-4.2); Glucose 515 mg/dL (74-106); Potassium 4.6 mmol/L (3.5-5.1); Protein, Total 7.5 g/dL (6.4-8.2); Sodium Level 130 mmol/L (136-145)
[2019-11-19 21:45] LABS: Bacteria 0 SEEN /hpf (None Seen); Mucous, Urine 0 SEEN /hpf (<or=2+)
[2019-11-19 21:52] LABS: Color, Urine Yellow (Yellow); Glucose, Dipstick 1000 mg/dl (Normal); Ketone-Dipstick 5 mg/dl (Negative); Leukocyte Esterase-Dipstick 100 /ul (Negative); Nitrite-Dipstick Negative (Negative); Occult Blood-Urine 50 /ul (Negative); Protein-Dipstick 500 mg/dl (Negative); Urine Bilirubin Dipstick Negative (Negative); Urine Clarity Sl. Cloudy (Clear); Urine Urobilinogen Normal (Normal)
[2019-11-19 21:59] LABS: Amorphous Sediment 1+ URATE; Red Blood Cells-Urine 0-5 SEEN /hpf (0-5); Squamous Epithelial Cells - UA 0-5 SEEN /hpf (5-10); White Blood Cells 10-25 SEEN /hpf (0-5)
--- NOTE | 2019-11-19 22:17 | HP.PCM_ITS ---
Problem List (1) Diabetic ketoacidosis Status: Acute (2) Urinary tract infection Status: Acute (3) Gastroparesis Status: Chronic (4) Nausea Status: Acute (5) Acute kidney injury superimposed on chronic kidney disease Status: Acute (6) Renal transplant recipient Status: Chronic (7) Legionnaires' disease Status: Chronic (8) History of chronic pancreatitis Status: Chronic (9) Neuropathy Status: Chronic (10) Kidney disease Status: Chronic (11) High cholesterol Status: Chronic (12) High blood pressure Status: Chronic (13) Diabetes Status: Chronic (14) Chronic bronchitis Status: Chronic (15) Cataracts, bilateral Status: Chronic (16) Anemia Status: Chronic (17) Seasonal allergies Status: Chronic (18) Hyperglycemia due to type 1 diabetes mellitus Status: Chronic (19) DM type 1 (diabetes mellitus, type 1) Status: Chronic Qualifiers: Diabetes mellitus complication status: with neurologic complications Diabetes mellitus complication detail: with unspecified neuropathy Qualified Code(s): E10.40 - Type 1 diabetes mellitus with diabetic neuropathy, unspecified (20) 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 Also she reports episodic abdominal pain. She had left ovarian cyst removal in the first week of November 2019. She reported thereafter she developed a constipation. She attributes her constipation to antibiotic that she was on at that time. On the day of presentation she had a large bowel movement. She thinks that her stool contains blood. Of note she reported that. Ended about 3 days ago. She reported that with her ovarian cyst removal she still sees trickles of blood from her vagina. She reported that she has been on Reglan for nausea and vomiting. She reports anorexia; fatigue and lites headedness. She reported she has been able to take her antirejection medicine. However because she is not been eating much as she is not been taking her insulin. As she reported that she had a high blood glucose at home. She reports a decrease urination. She denies any burning with urination. She called her PCP who advised her to come to the emergency department. Past Medical History Past Medical History (Chronic Problems): Chronic Problems (Last Reviewed 11/20/19 @ 00:[address] Aldo Smith MD) Gastroparesis (Chronic) Renal transplant recipient (Chronic) Legionnaires' disease (Chronic) History of chronic pancreatitis (Chronic) Neuropathy (Chronic) Kidney disease (Chronic) High cholesterol (Chronic) High blood pressure (Chronic) Diabetes (Chronic) Chronic bronchitis (Chronic) Cataracts, bilateral (Chronic) Anemia (Chronic) Seasonal allergies (Chronic) Hyperglycemia due to type 1 diabetes mellitus (Chronic) DM type 1 (diabetes mellitus, type 1) (Chronic) 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) Medical History: Medical History (Last Reviewed 11/20/19 @ 00:[address] Aldo Smith MD) Legionnaires' disease (Chronic) A48.1 History of chronic pancreatitis (Chronic) Z87.19 Neuropathy (Chronic) G62.9 Kidney disease (Chronic) N28.9 High cholesterol (Chronic) E78.00 High blood pressure (Chronic) I10 Diabetes (Chronic) E11.9 Chronic bronchitis (Chronic) J42 Cataracts, bilateral (Chronic) H26.9 Anemia (Chronic) D64.9 Seasonal allergies (Chronic) J30.2 Allergies furosemide [From Lasix] Allergy (Verified 11/19/19 19:11) Hives Home Medications: Ambulatory Orders Medication Instructions Recorded Gabapentin [Neurontin] 300 mg PO DAILY 01/20/18 Mycophenolate Mofetil 500 mg PO BID 01/20/18 Tacrolimus Anhydrous [Prograf] 2 mg PO BID 01/20/18 Insulin Aspart [Novolog Flexpen] 8 - 18 units SUBCUT TIDCM 01/27/18 albuterol sulfate 90 mcg/actuation 2 puff INHALATION Q6H PRN #8.5 g 02/16/19 aerosol inhaler Prednisone 5 mg PO DAILY 02/20/19 Acetaminophen [Tylenol Tablet] 650 mg PO Q6H PRN PRN tab 02/22/19 metoclopramide HCl 5 mg tablet 5 mg PO QACHS PRN #30 tab 05/18/19 carvedilol 25 mg tablet 25 mg PO BID #180 tab 11/10/19 zolpidem 10 mg tablet 10 mg PO QHS PRN #30 tab 11/10/19 Nifedipine [Nifedipine ER] 30 mg PO BID 11/19/19 Surgical History: Surgical History (Last Reviewed 11/20/19 @ 00:[address] Aldo Smith MD) Renal transplant recipient (Chronic) Z94.0 History of amputation of toe Z89.429 History of eye surgery Z98.890 Retina History of kidney transplant Z94.0 2011 Surgical History: appendectomy, - - Status post kidney transplant, poor wound debridement, diverting sigmoid colostomy on 07/06/2017, reversed on 07/07/2017, percutaneous tracheostomy, no longer has, left TMA Psychiatric History: No pertinent psych hx [employer] History: No pertinent [employer] history Smoking Status: Former smoker Drugs: Marijuana - Last use about a month ago. - *Family History Maternal Family History: Family History (Last Reviewed 11/20/19 @ 00:[address] Aldo Smith MD) Mother Asthma Hypertension Father Myocardial infarction History Items: Diabetes, Hypertension Paternal Family History: Family History (Last Reviewed 11/20/19 @ 00:[address] Aldo Smith MD) Mother Asthma Hypertension Father Myocardial infarction History Items: No pertinent history Review of Systems Constitutional: Denies: Chills, Fever, Weight Change HEENT: Denies: Head Aches, Sinus Congestion, Sinus Drainage Cardiovascular: Denies: Chest Pain, Palpitations Respiratory: Denies: Cough, Shortness of breath at rest, Sputum production Gastrointestinal: Reports: Abdominal Pain, Hematochezia, Nausea, Vomiting Genitourinary: Reports: Frequency - Decreased frequency. Denies: Dysuria Musculoskeletal: Denies: Joint Pain, Joint Tenderness Skin: Denies: Rash, Wounds Neurological: Denies: Numbness, Tingling, Focal weakness Psychiatric: Denies: Anxiety, Depression, Homicidal Ideations, Suicidal Ideations Hematologic/ Lymphatic: Denies: Easy Bruising, Easy Bleeding VTE Information - Inpt Only VTE Present on Admission: No VTE Mechan Device Prophylaxis: None VTE Pharm Prophylaxis ordered?: Yes Patient Problems: Active and Suspected Problems (Last Reviewed 11/20/19 @ 00:[address] Aldo Smith MD) Diabetic ketoacidosis (Acute) Urinary tract infection (Acute) - Physical Exam Vitals/I&O's: Vital Signs Temp Pulse Resp BP Pulse Ox 97.5 F L 83 16 129/70 H 96 11/19/19 19:09 11/19/19 19:09 11/19/19 19:09 11/19/19 19:09 11/19/19 19:09 Oxygen Delivery Method Room Air Weight: 83.915 kg Body Mass Index (BMI) 29.8 Finger Stick Blood Glucose 390 Intake and Output for Last 24 Hours 11/17/19 11/18/19 11/19/19 23:59 23:59 23:59 Intake Total 1000 / 1000 Balance 1000 / 1000 General: Alert, Oriented x3, Cooperative HEENT: Atraumatic, PERRLA, EOMI, Normocephalic Neck: Supple, No JVD, Negative Carotid Bruits Lungs: Clear to auscultation, Normal air movement, No rhonchi, No wheeze, No r ales Cardiovascular: Regular rate, No murmurs Abdomen: Bowel Sounds Present, Soft, Tender - Right lower quadrant (where transplanted kidney is at) Extremities: No edema, Tenderness - Left Achilles tendon area., - - Amputation of metatarsals of right foot. Skin: - - Diffuse skin graft on body. Musculoskeletal: No Tenderness to Palpation of Joints or Extremities Neurological: Cranial nerves II-XII grossly intact Psych/Mental Status: Normal Affect, Appropriate Laboratory Results 11/19/19 19:40: WBC 3.5 L, RBC 5.24, Hgb 14.4, Hct 43.1, MCV 82.3, MCH 27.5, MCHC 33.4, RDW Std Deviation 44.0 H, RDW Coeff of Sahra 14.7 H, Plt Count 176, MPV 11.9, Immature Gran % (Auto) 0.300, Neut % (Auto) 75.4 H, Lymph % (Auto) 14.0 L, [place] % (Auto) 8.3, Eos % (Auto) 1.1, Baso % (Auto) 0.9, Absolute Neuts (auto) 2.7, Absolute Lymphs (auto) 0.49 L, Nucleated RBC % 0, Differential Comment SEE COMMENT, Diff Path Review May , Platelet Estimate ADEQUATE, RBC Morphology NORM C+C 11/19/19 19:40: Sodium 130 L, Potassium 4.6, Chloride 98, Carbon Dioxide 18.0 L, Anion Gap 14, BUN 42 H, Creatinine 3.77 H, Estim Creat Clear Calc 18.57, Est GFR (MDRD) Af Amer 17 L, Est GFR (MDRD) Non-Af 14 L, BUN/Creatinine Ratio 11.1, Glucose 515 H*, Calcium 9.5, Total Bilirubin 0.70, AST 18, ALT 12 L, Alkaline Phosphatase 57, Total Protein 7.5, Albumin 3.1 L, Globulin 4.4 H, Albumin/Globulin Ratio 0.7 L 11/19/19 19:40: Serum , Qual NEGATIVE 11/19/19 19:40: Acetone Level Cancelled 11/19/19 21:00: Acetone Level SMALL H 11/19/19 21:40: Urine Color Yellow, Urine Clarity Sl. Cloudy, Urine pH 5.0, Ur Specific [place] 1.020, Urine Protein 500 H, Urine Glucose (UA) 1000 H, Urine Ketones 5 H, Urine Occult Blood 50 H, Urine Nitrite Negative, Urine Bilirubin Negative, Urine Urobilinogen Normal, Ur Leukocyte Esterase 100 H, Urine RBC 0-5 SEEN, Urine WBC 10-25 SEEN, Ur Squamous Epith Cells 0-5 SEEN, Amorphous Sediment 1+ URATE, Urine Bacteria 0 SEEN, Urine Mucus 0 SEEN Current Medications Dextrose (D50w Syringe) 0 gm IV X1 PRN; Protocol PRN Reason: Hypoglycemia Protocol Insulin Human Lispro 100 unit/ (Sodium Chloride) 100 mls @ 8.392 mls/hr IV .[id number] [facility]; Protocol Last Admin: 11/19/19 22:11 Dose: 0.1 units/kg/hr, 8.3 mls/hr Documented by: Assessment/Plan All Active Problems (Last Reviewed 11/20/19 @ 00:[address] 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 DKA DKA likely secondary to decreased intake of her home home insulin. Serum glucose: 515 acetone level: Small Anion gap of: 14 Sodium: 130, . Corrected sodium: 137 Insulin drip started from emergency department; continue Completed IV bolus of normal saline and normal saline infusion While at the unit repeat blood glucose was reported as 150. Ok to continue insulin drip but at 0.5 units/kg/hr and to start on Dextrose infusion BMP every 4 hours to calculate anion gap. N.p.o. for now except meds with sip of water. Admitted to ICU Potassium replacement per ICU protocol. A1c ordered. Dilaudid as needed for pain. Morphine not ordered because of NEL on CKD. Zofran PRN. Home Reglan held secondary to large bowel movement on day of presentation. 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 NEL on CKD CKD secondary to hypertensive nephrosclerosis and diabetes mellitus Presentation was 3.77 Baseline creatinine is around 2.3. BUN is 42 BUN over creatinine is 8.57. Likely prerenal superimposed on intrinsic renal. IV hydration as above. Avoid nephrotoxins. Trend BMP. Acute cystitis Abnormal urinalysis on presentation. Patient report decreased frequency of urination. Received Bactrim at emergency department. Will put patient on ceftriaxone. Hematochezia With her recent ovarian cyst surgery and with trickle of blood from her vaginal area in the setting of normal hemoglobin discussed with patient that if symptoms persist she should follow-up with PCP on discharge. If symptoms persist in the hospital setting consider further evaluation if needed otherwise patient can follow-up with PCP. Trend CBC while inpatient. DVT prophylaxis Subcutaneous heparin. Inpatient E&M: 76922 In Hosp L3
[2019-11-19 22:19] VITALS: BP 165/89; PULSE 85; RESP 18; O2SAT 100
[2019-11-19 22:25] LABS: Bedside Glucose 390 mg/dL (70-110)
[2019-11-19] MEDS: Smz/Tmp Ds Tablet 1 TABLET PO (22:45)
[2019-11-19 22:51] LABS: Bedside Glucose 377 mg/dL (70-110)
[2019-11-19 23:24] LABS: Lipase 46 U/L (73-393)
[2019-11-19 23:40] LABS: Bedside Glucose 287 mg/dL (70-110)
[2019-11-20] VITALS (23 sets, daily range): BP systolic 137–171; BP diastolic 71–100; PULSE 68–83; RESP 13–20; TEMP 36.4–37; O2SAT 96–100; BMI 26.7
[2019-11-20 00:41] LABS: Bedside Glucose 191 mg/dL (70-110)
[2019-11-20 02:00] LABS: Bedside Glucose 150 mg/dL (70-110)
[2019-11-20 02:41] LABS: Bedside Glucose 155 mg/dL (70-110)
[2019-11-20] MEDS: HYDROmorphone 0.5 MG/0.5 ML SYRINGE IV ×2 (03:00→15:02)
[2019-11-20] MEDS: 0.9% Saline Lock 10 ML Syringe IV ×2 (03:01→18:45)
[2019-11-20 03:10] LABS: Anion Gap 9 (5-15); BUN 41 mg/dL (7-18); BUN/Creat Ratio 11.8 RATIO (10-20); Chloride 109 mmol/L (98-107); Creatinine, Serum 3.48 mg/dL (0.55-1.02); EST Glomerular Filtration Rate 15 mL/min (>60); Est Glom Filt Rate - Afr Amer 19 mL/min (>60); Estimated Creatinine Clearance 20.12 ml/min; Glucose 148 mg/dL (74-106); Potassium 3.7 mmol/L (3.5-5.1); Sodium Level 137 mmol/L (136-145)
[2019-11-20 03:36] LABS: Bedside Glucose 139 mg/dL (70-110)
[2019-11-20 04:45] LABS: Bedside Glucose 165 mg/dL (70-110)
[2019-11-20 05:46] LABS: Bedside Glucose 148 mg/dL (70-110)
[2019-11-20 06:45] LABS: Bedside Glucose 139 mg/dL (70-110)
[2019-11-20 07:18] LABS: Absolute Lymphocyte Count 1.01 X10^3/uL (0.83-4.51); Absolute Neutrophil Count 1.3 X10^3/uL (2.0-7.7); Basophil# 0.04 X10^3/uL; Basophil% 1.3 % (0-1); Eosinophil# 0.16 X10^3/uL; Eosinophils% 5.3 % (0-5); Hemoglobin 12.9 g/dL (12.0-15.0); Lymphocyte # 1.01 X10^3/ul (4.0); Lymphocyte % 33.3 % (19-41); Mean Corp Hgb Conc 33.1 g/dL (32-36); Mean Corpuscular Hgb 27.6 pg (27.0-32.0); Mean Corpuscular Volume 83.3 fL (81-99); Mean Platelet Vol. 12.7 fl (6.2-12.0); Monocyte# 0.51 X10^3/uL; Monocyte% 16.8 % (0-10); NRBC Flagged by Analyzer 0 % (0-5); Neutrophil # 1.31 X10^3/uL (2.7-7.7); Neutrophil % 43.3 % (47-70); Platelet Count 145 K/mm3 (150-450); RBC Distribution Width CV 14.8 % (11.6-14.6); RBC Distribution Width SD 44.4 fl (35.1-43.9); Red Blood Count 4.68 M/mm3 (4.2-5.4)
[2019-11-20 07:36] LABS: Anion Gap 7 (5-15); BUN 38 mg/dL (7-18); BUN/Creat Ratio 11.5 RATIO (10-20); Calcium,Total 8.6 mg/dL (8.5-10.1); Chloride 110 mmol/L (98-107); Creatinine, Serum 3.31 mg/dL (0.55-1.02); EST Glomerular Filtration Rate 16 mL/min (>60); Est Glom Filt Rate - Afr Amer 20 mL/min (>60); Estimated Creatinine Clearance 21.15 ml/min; Glucose 139 mg/dL (74-106); Potassium 3.6 mmol/L (3.5-5.1); Sodium Level 138 mmol/L (136-145)
--- NOTE | 2019-11-20 08:18 | PCM.PN.HOSP ---
Patient Problems: Active and Suspected Problems (Last Reviewed 11/20/19 @ 00:[address] Aldo Smith MD) Diabetic ketoacidosis (Acute) Urinary tract infection (Acute) Vitals/I&O's: Vital Signs Temp Pulse Resp BP Pulse Ox 97.5 F L 70 14 153/78 H 100 11/20/19 02:00 11/20/19 06:00 11/20/19 06:00 11/20/19 06:00 11/20/19 06:00 Oxygen Delivery Method Room Air Weight: 165 lb 9.074 oz Body Mass Index (BMI) 26.7 Finger Stick Blood Glucose 191 Intake and Output for Last 24 Hours 11/18/19 11/19/19 11/20/19 23:59 23:59 23:59 Intake Total 1012.17 / 1012.17 4.09 / 4.09 Output Total 100 / 100 Balance 1012.17 / 1012.17 -95.91 / -95.91 General: Alert, Oriented x3, Cooperative HEENT: Atraumatic, PERRLA, EOMI, Normocephalic Neck: Supple, No JVD, Negative Carotid Bruits Lungs: Clear to auscultation, Normal air movement Cardiovascular: Regular rate, Regular Rhythm, Normal S1, Normal S2, No murmurs Abdomen: Bowel Sounds Present, Soft, Non-Distended, Tender - Mild diffuse tenderness present. No guarding or rigidity Extremities: No edema, Capillary Refill Less than 3 Seconds, - - Surgical scar present on left thigh and left leg. She had a spider bite in remote past. 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 Skin: - - Skin changes as mentioned above Musculoskeletal: No Tenderness to Palpation of Joints or Extremities, Arthritic Changes Neurological: Cranial nerves II-XII grossly intact, Neuro grossly intact Psych/Mental Status: Normal Affect, Appropriate Laboratory Results 11/19/19 19:40: WBC 3.5 L, RBC 5.24, Hgb 14.4, Hct 43.1, MCV 82.3, MCH 27.5, MCHC 33.4, RDW Std Deviation 44.0 H, RDW Coeff of Sahra 14.7 H, Plt Count 176, MPV 11.9, Immature Gran % (Auto) 0.300, Neut % (Auto) 75.4 H, Lymph % (Auto) 14.0 L, [place] % (Auto) 8.3, Eos % (Auto) 1.1, Baso % (Auto) 0.9, Absolute Neuts (auto) 2.7, Absolute Lymphs (auto) 0.49 L, Nucleated RBC % 0, Differential Comment SEE COMMENT, Diff Path Review May foll, Platelet Estimate ADEQUATE, RBC Morphology NORM C+C 11/19/19 19:40: Sodium 130 L, Potassium 4.6, Chloride 98, Carbon Dioxide 18.0 L, Anion Gap 14, BUN 42 H, Creatinine 3.77 H, Estim Creat Clear Calc 18.57, Est GFR (MDRD) Af Amer 17 L, Est GFR (MDRD) Non-Af 14 L, BUN/Creatinine Ratio 11.1, Glucose 515 H*, Calcium 9.5, Total Bilirubin 0.70, AST 18, ALT 12 L, Alkaline Phosphatase 57, Total Protein 7.5, Albumin 3.1 L, Globulin 4.4 H, Albumin/Globulin Ratio 0.7 L 11/19/19 19:40: Serum , Qual NEGATIVE 11/19/19 19:40: Acetone Level Cancelled 11/19/19 19:40: Lipase 46 L 11/19/19 21:00: Acetone Level SMALL H 11/19/19 21:40: Urine Color Yellow, Urine Clarity Sl. Cloudy, Urine pH 5.0, Ur Specific [place] 1.020, Urine Protein 500 H, Urine Glucose (UA) 1000 H, Urine Ketones 5 H, Urine Occult Blood 50 H, Urine Nitrite Negative, Urine Bilirubin Negative, Urine Urobilinogen Normal, Ur Leukocyte Esterase 100 H, Urine RBC 0-5 SEEN, Urine WBC 10-25 SEEN, Ur Squamous Epith Cells 0-5 SEEN, Amorphous Sediment 1+ URATE, Urine Bacteria 0 SEEN, Urine Mucus 0 SEEN 11/19/19 22:09: POC Glucose 390 H 11/19/19 22:43: POC Glucose 377 H 11/19/19 23:35: POC Glucose 287 H 11/20/19 00:35: POC Glucose 191 H 11/20/19 01:36: POC Glucose 150 H 11/20/19 02:30: Sodium 137, Potassium 3.7, Chloride 109 H, Carbon Dioxide 19.0 L, Anion Gap 9, BUN 41 H, Creatinine 3.48 H, Estim Creat Clear Calc 20.12, Est GFR (MDRD) Af Amer 19 L, Est GFR (MDRD) Non-Af 15 L, BUN/Creatinine Ratio 11.8, Glucose 148 H, Calcium 9.0 11/20/19 02:33: POC Glucose 155 H 11/20/19 03:29: POC Glucose 139 H 11/20/19 04:39: POC Glucose 165 H 11/20/19 05:40: POC Glucose 148 H 11/20/19 06:30: Hemoglobin A1c Pending 11/20/19 06:30: WBC 3.0 L, RBC 4.68, Hgb 12.9, Hct 39.0, MCV 83.3, MCH 27.6, MCHC 33.1, RDW Std Deviation 44.4 H, RDW Coeff of Sahra 14.8 H, Plt Count 145 L, MPV 12.7 H, Immature Gran % (Auto) 0.000, Neut % (Auto) 43.3 L, Lymph % (Auto) 33.3, [place] % (Auto) 16.8 H, Eos % (Auto) 5.3 H, Baso % (Auto) 1.3 H, Absolute Neuts (auto) 1.3 L, Absolute Lymphs (auto) 1.01, Nucleated RBC % 0 11/20/19 06:30: Sodium 138, Potassium 3.6, Chloride 110 H, Carbon Dioxide 21.0, Anion Gap 7, BUN 38 H, Creatinine 3.31 H, Estim Creat Clear Calc 21.15, Est GFR (MDRD) Af Amer 20 L, Est GFR (MDRD) Non-Af 16 L, BUN/Creatinine Ratio 11.5, Glucose 139 H, Calcium 8.6 11/20/19 06:35: POC Glucose 139 H Current Medications Acetaminophen (Tylenol) 650 mg PO Q6H PRN PRN PRN Reason: Pain Score 1-10/Temp > 100.7 F Albuterol Sulfate (Ventolin Aerosols) 2.5 mg INHALATION Q4H PRN Carvedilol (Coreg) 25 mg PO BID [facility] Dextrose (D50w Syringe) 0 gm IV X1 PRN; Protocol PRN Reason: HYPOGLYCEMIA Gabapentin (Neurontin) 100 mg PO DAILY [facility] Glucagon () 1 mg IM .X1 PRN PRN Reason: Hypoglycemia Heparin Sodium (Porcine) (Heparin Na) 5,000 unit SC Q8 [facility] Last Admin: 11/20/19 03:25 Dose: Not Given Documented by: Hydromorphone HCl (Dilaudid Inj) 0.5 mg IV Q4H PRN PRN PRN Reason: Pain Score 6-10/10 Last Admin: 11/20/19 03:00 Dose: 0.5 mg Documented by: Ceftriaxone Sodium (Rocephin) 1 gm in 50 mls @ 100 mls/hr IV Q24 [facility] Insulin Human Lispro 100 unit/ (Sodium Chloride) 100 mls @ 7.51 mls/hr IV .[id number] [facility]; Protocol Last Admin: 11/20/19 03:23 Dose: 0.1 units/kg/hr, 7.5 mls/hr Documented by: Mycophenolate Mofetil (Cellcept) 500 mg PO BID [facility] Nifedipine (Procardia Xl) 30 mg PO BID [facility] Ondansetron HCl (Zofran) 4 mg IV Q8H PRN PRN PRN Reason: NAUSEA/VOMITING Sodium Chloride () 10 - 40 ml IV UD PRN PRN Reason: SALINE FLUSH Last Admin: 11/20/19 03:01 Dose: 10 ml Documented by: Tacrolimus (Prograf) 2 mg PO BID [facility] Zolpidem Tartrate (Ambien (Generic)) 5 mg PO QHS PRN STROKE Vital Signs/Narrative: Vital Signs Pulse Resp BP Pulse Ox 11/20/19 06:00 70 14 153/78 H 100 11/20/19 05:00 72 13 158/81 H 100 Medical Necessity - Tobacco Use Smoking Status: Former smoker Assessment/Plan All Active Problems (Last Reviewed 11/20/19 @ 00:[address] 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 1. DKA with type 1 diabetes mellitus probably secondary to cystitis/UTI or inadequate diet: Patient was admitted in ICU on insulin drip and IV fluid. Anion gap were closed x2. K3.6. A1c pending. Patient started on Lantus 12 units subcutaneous daily with overlap of 3 hours of insulin drip and then discontinue insulin drip. On Accu-Chek essentials cover with sliding scale insulin. Carb controlled diet. Other supportive medications for nausea, vomiting. 2. Hyponatremia mainly hypertonic secondary to hyperglycemia, DKA: Corrected sodium is 137. Repeat sodium is normal at 138 3. Acute kidney injury mainly prerenal, DKA on CKD G4 status post renal transplant patient: . Patient baseline creatinine runs around 2.2-2.6. Admitted with creatinine 3.77 and currently 3.31. On immunosuppressant medications; tacrolimus, mycophenolate and prednisone 5 mg daily which is continued. Consult patient's resume writer, Dr. Cam. Continue IV fluid half-normal saline. 4. Acute cystitis/lower UTI: Patient denies burning micturition or increased frequency urgency but on the contrary she had decreased urine volume and frequency. UA positive of WBC 10-25 cells, LE 100, nitrite negative. Empirically on IV ceftriaxone. Patient also had 1 dose of Bactrim DS given by ER physician. Urine culture pending. 5. Hematochezia: Patient had recent ovarian cyst surgery and had large volume liquid bowel movement with tinge of blood along with nausea and vomiting. She also had trickle of blood from her vagina which resolved 3 days ago. The patient still has mild abdominal pain but nausea and vomiting has subsided. Follow-up PCP. Follow-up CBC. 6. DVT prophylaxis: Lovenox 30 mg subcu daily adjusted to the creatinine clearance. Total time of the visit including total time spent in counseling or coordination of care, (more than 50% of the total time, spent in obtaining medical information from nurses and other ancillary care providers), , review of labs and imaging is 30 minutes Inpatient E&M: [id number] [id number]
[2019-11-20 08:55] LABS: Bedside Glucose 81 mg/dL (70-110)
[2019-11-20 09:14] LABS: Hemoglobin A1c 9.4 % (3.8-5.6)
[2019-11-20 10:11] LABS: Bedside Glucose 93 mg/dL (70-110)
[2019-11-20] MEDS: 0.45% Normal Saline 1,000 ML 100 ML IV (10:31)
[2019-11-20] MEDS: Mycophenolate Mofetil 250 MG Capsule 500 MG PO ×2 (10:32→22:03)
[2019-11-20] MEDS: Carvedilol 25 MG Tablet PO ×2 (10:33→20:28)
[2019-11-20] MEDS: Gabapentin 100 MG Capsule PO (10:33)
[2019-11-20] MEDS: NIFEdipine 30 MG Tablet PO ×2 (10:33→20:28)
[2019-11-20] MEDS: Tacrolimus Anhydrous 1 MG Capsule 2 MG PO ×2 (10:34→22:03)
[2019-11-20 11:06] LABS: Magnesium 1.8 mg/dL (1.6-2.6); Phosphorus 2.5 mg/dL (2.5-4.9)
--- NOTE | 2019-11-20 11:46 | CASEMGMT ---
TERRI PINZON assessment: Face to Face with patient for initial transition planning/care coordination assessment. TERRI PINZON introduced self and role at [facility], pt voices understanding and consents to assessment at this time. Pt is sitting up in bed in no distress at this time. Pt is A/Ox4 at this time and answers all questions appropriately at this time. Care providers, pharmacy, and demographics verified/updated at this time. Presentation: N/V/D and dizziness since left ovarian cyst removal 3weeks ago Admitting dx: DKA PCP: Veronica Specialists: Dorina nephgege(hx kidney transplant); niya Clemons in [place]; Ayaan, OB-correspondence school teacher in [place]; Marnie, pod Preferred [facility]acy[facility] Insurance: [facility] Benefit: Yes Living Will/HPOA: Pt states does not have LW/HPOA but was already given AD info to take home. LNOK: Inder Lawrence, sig other; Jennifer Deleon, mother(lives in [place]) Living Arrangements: Pt states lives with sig other in apartment and states no concerns at home at this time. Pt states is independent with ADL's. Transportation: Pt states sig other or family drives and states no transportation concerns at this time. DME/HHC: Pt states does have a cane to use if needed and does have an implanted continuous glucose monitoring system. Pt states is getting an insulin pump as well but has to go through two weeks of training before it can be utilized. Pt states no need for any further DME at this time. Pt states has had HHC and been to SNF in the past while she was in [place]. Pt states no concerns with going home at time of discharge. Pt states is on disability. Pt states does not smoke or drink ETOH. Pt states no further concerns/needs at this time. CM to follow for any further discharge planning/needs. Advised pt to ask for CM if any further questions/concerns/needs arise, voices understanding. Pt Goal: Home Plan: [place] TERRI PINZON
[2019-11-20 11:48] LABS: Pathologist Review Reviewed
[2019-11-20 12:05] LABS: Bedside Glucose 111 mg/dL (70-110)
--- NOTE | 2019-11-20 12:37 | PCM.CONS.R ---
Consultation - Renal 11/20/19 PCP/ Referring MD: Requesting physician: [] Primary care physician: Dr. Aster Martin MD Reason for Consultation:: nel - History of Present Illness History of Present Illness: The patient is a 38 year old F past medical history of renal transplantation diabetes mellitus and hypertension who presented with a chief complaint of nausea vomiting for about a week associated with abdominal pain and being unable to keep anything down. She states that she took her transfer medication though. She had a left ovarian cyst removal in the first week of November 2019. She thought that she had some blood in the stool. She had some vaginal bleeding after ovarian cyst removal. She also reports ongoing anorexia fatigue. She has very decreased p.o. intake for about a week. He denies dysuria hematuria taking NSAIDs at home recent exposure to IV contrast. Her creatinine was 3.7 on admission which prompted renal consult. She sees Dr. Cam as outpatient. Baseline creatinine seems to be 2.2-2.6-2.4 She denies chest pain shortness of breath and she has no other complaints. - Allergies Allergies: Allergies furosemide [From Lasix] Allergy (Verified 11/19/19 19:11) Hives - Current Medications Current Medications: Current Medications Acetaminophen (Tylenol) 650 mg PO Q6H PRN PRN PRN Reason: Pain Score 1-10/Temp > 100.7 F Albuterol Sulfate (Ventolin Aerosols) 2.5 mg INHALATION Q4H PRN Carvedilol (Coreg) 25 mg PO BID [facility] Last Admin: 11/20/19 10:33 Dose: 25 mg Documented by: Dextrose (D50w Syringe) 0 gm IV X1 PRN; Protocol PRN Reason: HYPOGLYCEMIA Dextrose (D50w Syringe) 0 gm IV X1 PRN; Protocol PRN Reason: Hypoglycemia Enoxaparin Sodium (Lovenox) 30 mg SC DAILY [facility] Last Admin: 11/20/19 10:54 Dose: Not Given Documented by: Gabapentin (Neurontin) 100 mg PO DAILY [facility] Last Admin: 11/20/19 10:33 Dose: 100 mg Documented by: Glucagon () 1 mg IM .X1 PRN PRN Reason: Hypoglycemia Hydromorphone HCl (Dilaudid Inj) 0.5 mg IV Q4H PRN PRN PRN Reason: Pain Score 6-10/10 Last Admin: 11/20/19 03:00 Dose: 0.5 mg Documented by: Ceftriaxone Sodium (Rocephin) 1 gm in 50 mls @ 100 mls/hr IV Q24 [facility] Insulin Human Lispro 100 unit/ (Sodium Chloride) 100 mls @ 7.51 mls/hr IV .[id number] [facility]; Protocol Last Titration: 11/20/19 09:30 Dose: 0.02 units/kg/hr, 1.5 mls/hr Documented by: Sodium Chloride () 1,000 mls @ 100 mls/hr IV .Q10H [facility] Last Admin: 11/20/19 10:31 Dose: 100 mls/hr Documented by: Insulin Glargine (Lantus (Bk)) 12 units SC 1100 [facility] Last Admin: 11/20/19 11:00 Dose: 12 u Documented by: Insulin Human Lispro (Humalog Kwikpen (Bkc)) 0 unit SC ACHS [facility]; Protocol Mycophenolate Mofetil (Cellcept) 500 mg PO BID [facility] Last Admin: 11/20/19 10:32 Dose: 500 mg Documented by: Nifedipine (Procardia Xl) 30 mg PO BID [facility] Last Admin: 11/20/19 10:33 Dose: 30 mg Documented by: Ondansetron HCl (Zofran) 4 mg IV Q8H PRN PRN PRN Reason: NAUSEA/VOMITING Sodium Chloride () 10 - 40 ml IV UD PRN PRN Reason: SALINE FLUSH Last Admin: 11/20/19 03:01 Dose: 10 ml Documented by: Tacrolimus (Prograf) 2 mg PO BID [facility] Last Admin: 11/20/19 10:34 Dose: 2 mg Documented by: Zolpidem Tartrate (Ambien (Generic)) 5 mg PO QHS PRN - Past Medical History Past Medical History (Chronic Problems): Chronic Problems (Last Reviewed 11/20/19 @ 00:[address] 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 - Family History Maternal Family History: Family History (Last Reviewed 11/20/19 @ 00:[address] Aldo Smith MD) Mother Asthma Hypertension Father Myocardial infarction History Items: Diabetes, Hypertension Paternal Family History: Family History (Last Reviewed 11/20/19 @ 00:[address] Aldo Smith MD) Mother Asthma Hypertension Father Myocardial infarction History Items: No pertinent history Patient Problems: Active and Suspected Problems (Last Reviewed 11/20/19 @ 00:[address] Aldo Smith MD) Diabetic ketoacidosis (Acute) Urinary tract infection (Acute) - Physical Exam Vitals/I&O's: Vital Signs Temp Pulse Resp BP Pulse Ox 97.5 F L 70 14 153/78 H 100 11/20/19 02:00 11/20/19 06:00 11/20/19 06:00 11/20/19 06:00 11/20/19 08:34 Oxygen Delivery Method Room Air Weight: 75.1 kg Body Mass Index (BMI) 26.7 Finger Stick Blood Glucose 81 Intake and Output for Last 24 Hours 11/18/19 11/19/19 11/20/19 23:59 23:59 23:59 Intake Total 1012.17 / 1012.17 1730.47 / 1730.47 Output Total 100 / 100 Balance 1012.17 / 1012.17 1630.47 / 1630.47 General: Alert, Cooperative HEENT: Atraumatic, Normocephalic Neck: Supple Lungs: Clear to auscultation, Normal air movement Cardiovascular: Regular rate, Regular Rhythm, Normal S1, Normal S2 Abdomen: Bowel Sounds Present, Soft, Non Tender Extremities: No clubbing Laboratory Results 11/19/19 19:40: WBC 3.5 L, RBC 5.24, Hgb 14.4, Hct 43.1, MCV 82.3, MCH 27.5, MCHC 33.4, RDW Std Deviation 44.0 H, RDW Coeff of Sahra 14.7 H, Plt Count 176, MPV 11.9, Immature Gran % (Auto) 0.300, Neut % (Auto) 75.4 H, Lymph % (Auto) 14.0 L, [place] % (Auto) 8.3, Eos % (Auto) 1.1, Baso % (Auto) 0.9, Absolute Neuts (auto) 2.7, Absolute Lymphs (auto) 0.49 L, Nucleated RBC % 0, Differential Comment SEE COMMENT, Diff Path Review Reviewed, Platelet Estimate ADEQUATE, RBC Morphology NORM C+C 11/19/19 19:40: Sodium 130 L, Potassium 4.6, Chloride 98, Carbon Dioxide 18.0 L, Anion Gap 14, BUN 42 H, Creatinine 3.77 H, Estim Creat Clear Calc 18.57, Est GFR (MDRD) Af Amer 17 L, Est GFR (MDRD) Non-Af 14 L, BUN/Creatinine Ratio 11.1, Glucose 515 H*, Calcium 9.5, Total Bilirubin 0.70, AST 18, ALT 12 L, Alkaline Phosphatase 57, Total Protein 7.5, Albumin 3.1 L, Globulin 4.4 H, Albumin/Globulin Ratio 0.7 L 11/19/19 19:40: Serum , Qual NEGATIVE 11/19/19 19:40: Acetone Level Cancelled 11/19/19 19:40: Lipase 46 L 11/19/19 21:00: Acetone Level SMALL H 11/19/19 21:40: Urine Color Yellow, Urine Clarity Sl. Cloudy, Urine pH 5.0, Ur Specific [place] 1.020, Urine Protein 500 H, Urine Glucose (UA) 1000 H, Urine Ketones 5 H, Urine Occult Blood 50 H, Urine Nitrite Negative, Urine Bilirubin Negative, Urine Urobilinogen Normal, Ur Leukocyte Esterase 100 H, Urine RBC 0-5 SEEN, Urine WBC 10-25 SEEN, Ur Squamous Epith Cells 0-5 SEEN, Amorphous Sediment 1+ URATE, Urine Bacteria 0 SEEN, Urine Mucus 0 SEEN 11/19/19 22:09: POC Glucose 390 H 11/19/19 22:43: POC Glucose 377 H 11/19/19 23:35: POC Glucose 287 H 11/20/19 00:35: POC Glucose 191 H 11/20/19 01:36: POC Glucose 150 H 11/20/19 02:30: Sodium 137, Potassium 3.7, Chloride 109 H, Carbon Dioxide 19.0 L, Anion Gap 9, BUN 41 H, Creatinine 3.48 H, Estim Creat Clear Calc 20.12, Est GFR (MDRD) Af Amer 19 L, Est GFR (MDRD) Non-Af 15 L, BUN/Creatinine Ratio 11.8, Glucose 148 H, Calcium 9.0 11/20/19 02:33: POC Glucose 155 H 11/20/19 03:29: POC Glucose 139 H 11/20/19 04:39: POC Glucose 165 H 11/20/19 05:40: POC Glucose 148 H 11/20/19 06:30: Hemoglobin A1c 9.4 H 11/20/19 06:30: WBC 3.0 L, RBC 4.68, Hgb 12.9, Hct 39.0, MCV 83.3, MCH 27.6, MCHC 33.1, RDW Std Deviation 44.4 H, RDW Coeff of Sahra 14.8 H, Plt Count 145 L, MPV 12.7 H, Immature Gran % (Auto) 0.000, Neut % (Auto) 43.3 L, Lymph % (Auto) 33.3, [place] % (Auto) 16.8 H, Eos % (Auto) 5.3 H, Baso % (Auto) 1.3 H, Absolute Neuts (auto) 1.3 L, Absolute Lymphs (auto) 1.01, Nucleated RBC % 0 11/20/19 06:30: Sodium 138, Potassium 3.6, Chloride 110 H, Carbon Dioxide 21.0, Anion Gap 7, BUN 38 H, Creatinine 3.31 H, Estim Creat Clear Calc 21.15, Est GFR (MDRD) Af Amer 20 L, Est GFR (MDRD) Non-Af 16 L, BUN/Creatinine Ratio 11.5, Glucose 139 H, Calcium 8.6 11/20/19 06:30: Phosphorus 2.5, Magnesium 1.8 11/20/19 06:35: POC Glucose 139 H 11/20/19 08:52: POC Glucose 81 11/20/19 10:05: POC Glucose 93 11/20/19 12:02: POC Glucose 111 H Current Medications Acetaminophen (Tylenol) 650 mg PO Q6H PRN PRN PRN Reason: Pain Score 1-10/Temp > 100.7 F Albuterol Sulfate (Ventolin Aerosols) 2.5 mg INHALATION Q4H PRN Carvedilol (Coreg) 25 mg PO BID [facility] Last Admin: 11/20/19 10:33 Dose: 25 mg Documented by: Dextrose (D50w Syringe) 0 gm IV X1 PRN; Protocol PRN Reason: HYPOGLYCEMIA Dextrose (D50w Syringe) 0 gm IV X1 PRN; Protocol PRN Reason: Hypoglycemia Enoxaparin Sodium (Lovenox) 30 mg SC DAILY [facility] Last Admin: 11/20/19 10:54 Dose: Not Given Documented by: Gabapentin (Neurontin) 100 mg PO DAILY [facility] Last Admin: 11/20/19 10:33 Dose: 100 mg Documented by: Glucagon () 1 mg IM .X1 PRN PRN Reason: Hypoglycemia Hydromorphone HCl (Dilaudid Inj) 0.5 mg IV Q4H PRN PRN PRN Reason: Pain Score 6-10/10 Last Admin: 11/20/19 03:00 Dose: 0.5 mg Documented by: Ceftriaxone Sodium (Rocephin) 1 gm in 50 mls @ 100 mls/hr IV Q24 [facility] Insulin Human Lispro 100 unit/ (Sodium Chloride) 100 mls @ 7.51 mls/hr IV .[id number] [facility]; Protocol Last Titration: 11/20/19 09:30 Dose: 0.02 units/kg/hr, 1.5 mls/hr Documented by: Sodium Chloride () 1,000 mls @ 100 mls/hr IV .Q10H [facility] Last Admin: 11/20/19 10:31 Dose: 100 mls/hr Documented by: Insulin Glargine (Lantus (Bkc)) 12 units SC 1100 [facility] Last Admin: 11/20/19 11:00 Dose: 12 u Documented by: Insulin Human Lispro (Humalog Kwikpen (Bkc)) 0 unit SC ACHS [facility]; Protocol Mycophenolate Mofetil (Cellcept) 500 mg PO BID [facility] Last Admin: 11/20/19 10:32 Dose: 500 mg Documented by: Nifedipine (Procardia Xl) 30 mg PO BID [facility] Last Admin: 11/20/19 10:33 Dose: 30 mg Documented by: Ondansetron HCl (Zofran) 4 mg IV Q8H PRN PRN PRN Reason: NAUSEA/VOMITING Sodium Chloride () 10 - 40 ml IV UD PRN PRN Reason: SALINE FLUSH Last Admin: 11/20/19 03:01 Dose: 10 ml Documented by: Tacrolimus (Prograf) 2 mg PO BID [facility] Last Admin: 11/20/19 10:34 Dose: 2 mg Documented by: Zolpidem Tartrate (Ambien (Generic)) 5 mg PO QHS PRN Assessment/Plan All Active Problems (Last Reviewed 11/20/19 @ 00:[address] Aldo Smith MD) Diabetic ketoacidosis (Acute) Urinary tract infection (Acute) Nausea (Acute) Acute kidney injury superimposed on chronic kidney disease (Acute) Legionella pneumonia (Resolved) NEL (acute kidney injury) (Acute) NEL prerenal/ATN with fluid depletion s/p DDRTX 2011 baseline Scr 2.2-2.4 DM DKA resolved Scr 3.3 improving on ivf check a trough Tac level in am renal US restart prednisone and continue Tac and Cellcept f/u urine cx further w/u per clinical course Avoid nephrotoxins The above assessment and plan was discussed at length with the patient who voiced understanding and agrees to proceed with the plan as outlined above. He was given the opportunity to ask questions and stated that those were answered to her satisfaction. Thank you very much for allowing me to participate in the care of this patient. Please do not hesitate to call if you have any questions or concerns.
[2019-11-20] MEDS: Ceftriaxone 1 GM/50 ML BAG IV (12:43)
--- NOTE | 2019-11-20 12:53 | US_ITS ---
STUDY: RENAL ULTRASOUND - COMPLETE REASON FOR EXAM: Female, 38 years old. NEL RT TRANSPLANT KIDNEY TECHNIQUE: Ultrasound evaluation of the kidneys was performed with real-time and static whittington-scale imaging. COMPARISON: None. FINDINGS: RIGHT KIDNEY: Normal location of the right kidney, which is atrophic The right kidney measures 5.6 x 3.1 x 3.3 cm. There is a thin cortex of the right kidney. The renal cortex measures 0.7 cm. There is no right renal mass or cyst. There are no right renal calculi. There is no right hydronephrosis. DISTAL RIGHT URETER: There is non-visualization of the distal right ureter. There is no demonstrated right ureterovesical junction calculus. There is a visualized right ureteral jet. LEFT KIDNEY: Normal location of the left kidney, which is atrophic The left kidney measures 5.9 x 2.6 x 3.1 cm. There is a thin cortex of the left kidney. The renal cortex measures 0.6 cm. There is no left renal mass or cyst. There are no left renal calculi. There is no left hydronephrosis. DISTAL LEFT URETER: There is non-visualization of the distal left ureter. There is no demonstrated left ureterovesical junction calculus. There is a visualized left ureteral jet. Diffusely increased cortical echoes are seen consistent with severe renal parenchymal disease Renal transplant is seen in the right iliac fossa measuring 11.7 x 5.2 x 4.8 cm. The cortex is 1.6 cm. There is no evidence for hydronephrosis or mass. There are diffusely increased cortical echoes suggesting renal parenchymal disease however clinical correlation is recommended BLADDER: The bladder is empty and cannot be evaluated. US/Kidney and Bladder IMPRESSION: Atrophic bilateral [place] kidneys.. Right renal transplant with findings suggestive of renal parenchymal disease. This may be partly due to artifact. Clinical correlation is recommended Electronically Signed: Reji Alfredo MD at 19:36 EDT , Service support ,
[2019-11-20] MEDS: Ondansetron 4 MG/2 ML Vial IV (15:03)
[2019-11-20 16:50] LABS: Bedside Glucose 220 mg/dL (70-110)
[2019-11-20] MEDS: predniSONE 5 MG Tablet PO (17:20)
[2019-11-20] MEDS: Insulin Lispro 100 UNIT/ML INSULN.PEN SC ×2 (17:24→22:03)
[2019-11-20] MEDS: 0.9% Normal Saline 1,000 ML 75 ML IV (18:44)
[2019-11-20 22:36] LABS: Bedside Glucose 216 mg/dL (70-110)
[2019-11-21 01:47] VITALS: BP 152/84; PULSE 77; RESP 16; TEMP 36.8; O2SAT 99
[2019-11-21] MEDS: Insulin Lispro 100 UNIT/ML INSULN.PEN SC ×4 (06:38→21:19)
[2019-11-21 06:46] LABS: Bedside Glucose 191 mg/dL (70-110)
[2019-11-21 06:54] LABS: Absolute Lymphocyte Count 0.48 X10^3/uL (0.83-4.51); Absolute Neutrophil Count 2.3 X10^3/uL (2.0-7.7); Basophil# 0.02 X10^3/uL; Basophil% 0.6 % (0-1); Eosinophil# 0.06 X10^3/uL; Eosinophils% 1.9 % (0-5); Hematocrit 38.7 % (37-47); Hemoglobin 12.7 g/dL (12.0-15.0); Lymphocyte # 0.48 X10^3/ul (4.0); Lymphocyte % 15.3 % (19-41); Mean Corp Hgb Conc 32.8 g/dL (32-36); Mean Corpuscular Hgb 27.7 pg (27.0-32.0); Mean Corpuscular Volume 84.5 fL (81-99); Mean Platelet Vol. 12.6 fl (6.2-12.0); Monocyte# 0.28 X10^3/uL; Monocyte% 8.9 % (0-10); NRBC Flagged by Analyzer 0 % (0-5); Neutrophil # 2.29 X10^3/uL (2.7-7.7); POSITIVE DIFFERENTIAL YES; Platelet Count 131 K/mm3 (150-450); RBC Distribution Width SD 45.9 fl (35.1-43.9); Red Blood Count 4.58 M/mm3 (4.2-5.4); White Blood Count 3.1 K/mm3 (4.4-11.0)
[2019-11-21 07:18] LABS: Anion Gap 8 (5-15); BUN 38 mg/dL (7-18); BUN/Creat Ratio 12.2 RATIO (10-20); Calcium,Total 8.5 mg/dL (8.5-10.1); Chloride 111 mmol/L (98-107); Creatinine, Serum 3.11 mg/dL (0.55-1.02); EST Glomerular Filtration Rate 18 mL/min (>60); Est Glom Filt Rate - Afr Amer 21 mL/min (>60); Estimated Creatinine Clearance 22.51 ml/min; Glucose 206 mg/dL (74-106); Magnesium 1.8 mg/dL (1.6-2.6); Potassium 4.8 mmol/L (3.5-5.1); Sodium Level 137 mmol/L (136-145)
[2019-11-21 07:20] LABS: Differential Indicated SCAN CRITERIA MET
[2019-11-21 07:50] VITALS: BP 167/84; PULSE 80; RESP 16; TEMP 36.7; O2SAT 100
[2019-11-21 08:00] LABS: Platelet Estimate ADEQUATE (ADEQ); Red Cell Morphology NORM C+C NORMAL (NORM C&C)
[2019-11-21] MEDS: 0.9% Normal Saline 1,000 ML 75 ML IV ×2 (08:05→20:52)
[2019-11-21] MEDS: predniSONE 5 MG Tablet PO (08:26)
[2019-11-21] MEDS: Mycophenolate Mofetil 250 MG Capsule 500 MG PO ×2 (08:27→21:16)
[2019-11-21] MEDS: Carvedilol 25 MG Tablet PO ×2 (08:27→21:17)
[2019-11-21] MEDS: Gabapentin 100 MG Capsule PO (09:24)
[2019-11-21] MEDS: Tacrolimus Anhydrous 1 MG Capsule 2 MG PO ×2 (09:25→21:17)
--- NOTE | 2019-11-21 09:30 | PCM.PN.REN ---
Patient Problems: Active and Suspected Problems (Last Reviewed 11/20/19 @ 00:[address] Aldo Smith MD) Diabetic ketoacidosis (Acute) Urinary tract infection (Acute) Subjective: Following for NEL on CKD, Kidney transplant. Pt denies CP, SOB, nausea today. No edema. - Physical Exam Vitals/I&O's: Vital Signs Temp Pulse Resp BP Pulse Ox 98.1 F 80 16 167/84 H 100 11/21/19 07:50 11/21/19 07:50 11/21/19 07:50 11/21/19 07:50 11/21/19 07:50 Oxygen Delivery Method Room Air Weight: 77.3 kg Body Mass Index (BMI) 26.7 Finger Stick Blood Glucose 111 Intake and Output for Last 24 Hours 11/19/19 11/20/19 11/21/19 23:59 23:59 23:59 Intake Total 1012.17 / 1012.17 3984.97 / 3984.97 1000 / 1000 Output Total 100 / 100 1000 / 1000 Balance 1012.17 / 1012.17 3884.97 / 3884.97 0 / 0 General: Alert, Oriented x3 HEENT: Atraumatic, Normocephalic Oral: Moist Mucosa Neck: Supple Lungs: Clear to auscultation Cardiovascular: Regular rate, Normal S1, Normal S2 Abdomen: Bowel Sounds Present, Soft, Non Tender Extremities: No clubbing, No cyanosis, No edema Laboratory Results 11/19/19 19:40: Diff Path Review Reviewed 11/20/19 06:30: Phosphorus 2.5, Magnesium 1.8 11/20/19 10:05: POC Glucose 93 11/20/19 12:02: POC Glucose 111 H 11/20/19 16:44: POC Glucose 220 H 11/20/19 22:03: POC Glucose 216 H 11/21/19 06:26: WBC 3.1 L, RBC 4.58, Hgb 12.7, Hct 38.7, MCV 84.5, MCH 27.7, MCHC 32.8, RDW Std Deviation 45.9 H, RDW Coeff of Sahra 15.0 H, Plt Count 131 L, MPV 12.6 H, Immature Gran % (Auto) 0.300, Neut % (Auto) 73.0 H, Lymph % (Auto) 15.3 L, [place] % (Auto) 8.9, Eos % (Auto) 1.9, Baso % (Auto) 0.6, Absolute Neuts (auto) 2.3, Absolute Lymphs (auto) 0.48 L, Nucleated RBC % 0, Diff Path Review May , Platelet Estimate ADEQUATE, RBC Morphology NORM C+C 11/21/19 06:26: Sodium 137, Potassium 4.8, Chloride 111 H, Carbon Dioxide 18.0 L, Anion Gap 8, BUN 38 H, Creatinine 3.11 H, Estim Creat Clear Calc 22.51, Est GFR (MDRD) Af Amer 21 L, Est GFR (MDRD) Non-Af 18 L, BUN/Creatinine Ratio 12.2, Glucose 206 H, Calcium 8.5, Magnesium 1.8 11/21/19 06:26: Tacrolimus Pending 11/21/19 06:37: POC Glucose 191 H Current Medications Acetaminophen (Tylenol) 650 mg PO Q6H PRN PRN PRN Reason: Pain Score 1-10/Temp > 100.7 F Albuterol Sulfate (Ventolin Aerosols) 2.5 mg INHALATION Q4H PRN Carvedilol (Coreg) 25 mg PO BID [facility] Last Admin: 11/21/19 08:27 Dose: 25 mg Documented by: Dextrose (D50w Syringe) 0 gm IV X1 PRN; Protocol PRN Reason: HYPOGLYCEMIA Dextrose (D50w Syringe) 0 gm IV X1 PRN; Protocol PRN Reason: Hypoglycemia Enoxaparin Sodium (Lovenox) 30 mg SC DAILY [facility] Last Admin: 11/21/19 08:28 Dose: Not Given Documented by: Gabapentin (Neurontin) 100 mg PO DAILY [facility] Last Admin: 11/21/19 09:24 Dose: 100 mg Documented by: Glucagon () 1 mg IM .X1 PRN PRN Reason: Hypoglycemia Hydromorphone HCl (Dilaudid Inj) 0.5 mg IV Q4H PRN PRN PRN Reason: Pain Score 6-10/10 Last Admin: 11/20/19 15:02 Dose: 0.5 mg Documented by: Ceftriaxone Sodium (Rocephin) 1 gm in 50 mls @ 100 mls/hr IV Q24 [facility] Last Infusion: 11/20/19 14:19 Dose: Infused Documented by: Sodium Chloride () 1,000 mls @ 75 mls/hr IV .[id number] [facility] Last Admin: 11/21/19 08:05 Dose: 75 mls/hr Documented by: Insulin Glargine (Lantus (Bk)) 12 units SC 1100 [facility] Last Admin: 11/20/19 11:00 Dose: 12 u Documented by: Insulin Human Lispro (Humalog Kwikpen ([facility])) 0 unit SC ACHS [facility]; Protocol Last Admin: 11/21/19 06:38 Dose: 2 units Documented by: Mycophenolate Mofetil (Cellcept) 500 mg PO BID [facility] Last Admin: 11/21/19 08:27 Dose: 500 mg Documented by: Nifedipine (Procardia Xl) 30 mg PO BID [facility] Last Admin: 11/20/19 20:28 Dose: 30 mg Documented by: Ondansetron HCl (Zofran) 4 mg IV Q8H PRN PRN PRN Reason: NAUSEA/VOMITING Last Admin: 11/20/19 15:03 Dose: 4 mg Documented by: [facility] () [facility] Last Admin: 11/21/19 08:26 Dose: 5 mg Documented by: Sodium Chloride () 10 - 40 ml IV UD PRN PRN Reason: SALINE FLUSH Last Admin: 11/20/19 18:45 Dose: 10 ml Documented by: Tacrolimus (Prograf) 2 mg PO BID [facility] Last Admin: 11/21/19 09:25 Dose: 2 mg Documented by: Zolpidem Tartrate (Ambien (Generic)) 5 mg PO QHS PRN Medical Necessity - Tobacco Use Smoking Status: Former smoker Assessment/Plan All Active Problems (Last Reviewed 11/20/19 @ 00:[address] Aldo Smith MD) Diabetic ketoacidosis (Acute) Urinary tract infection (Acute) Nausea (Acute) Acute kidney injury superimposed on chronic kidney disease (Acute) Legionella pneumonia (Resolved) NEL (acute kidney injury) (Acute) Impression: NEL prerenal/ATN due to fluid depletion with nausea/vomiting. No evidence of obstruction on transplant kidney US. s/p DDRTX 2011, baseline Scr 2.2-2.4-followed by Dr. Cam as outpt DM DKA resolved Plan: Scr 3.48->3.31->3.11. She is improving on ivf. Encouraged oral solute/fluid intake. Trough tacrolimus level sent, will probabaly take a few days to come back. Low suspicion for tacrolimus toxicity. Continue current IS with prednisone, tacrolimus, and mycophenolate. f/u urine cx. OK to dc home from the renal standpoint if she is taking po well. If she is discharged, my office will arrange for follow up labs check and follow up office visit with Dr. Cam.
[2019-11-21] MEDS: NIFEdipine 30 MG Tablet PO ×2 (12:26→21:17)
[2019-11-21] MEDS: Ceftriaxone 1 GM/50 ML BAG IV (12:27)
[2019-11-21 12:31] LABS: Bedside Glucose 270 mg/dL (70-110)
[2019-11-21 16:27] VITALS: BP 157/98; PULSE 76; RESP 18; TEMP 36.7; O2SAT 100
[2019-11-21 16:51] LABS: Bedside Glucose 322 mg/dL (70-110)
--- NOTE | 2019-11-21 17:11 | PN_ITS ---
Patient Problems: Active and Suspected Problems (Last Reviewed 11/20/19 @ 00:[address] Aldo Smith MD) Diabetic ketoacidosis (Acute) Urinary tract infection (Acute) Subjective: Feeling better today, though she is still little bit nervous about trying a regular diet Vitals/I&O's: Vital Signs Temp Pulse Resp BP Pulse Ox 98.1 F 76 18 157/98 H 100 11/21/19 16:27 11/21/19 16:27 11/21/19 16:27 11/21/19 16:27 11/21/19 16:27 Oxygen Delivery Method Room Air Weight: 170 lb 6.677 oz Body Mass Index (BMI) 26.7 Finger Stick Blood Glucose 111 Intake and Output for Last 24 Hours 11/19/19 11/20/19 11/21/19 23:59 23:59 23:59 Intake Total 1012.17 / 1012.17 3984.97 / 3984.97 2027.5 / 2027.5 Output Total 100 / 100 1700 / 1700 Balance 1012.17 / 1012.17 3884.97 / 3884.97 327.5 / 327.5 General: Alert, Oriented x3, Cooperative, No apparent distress HEENT: Atraumatic, PERRLA, EOMI, Normocephalic Oral: Moist Mucosa Neck: Supple, No JVD Lungs: Clear to auscultation, Normal air movement, No rhonchi, No wheeze, No rales, Diminished Cardiovascular: Regular rate, Regular Rhythm, Normal S1, Normal S2, No murmurs Abdomen: Soft, Non Tender, Non-Distended, No Hepato-splenomegaly Extremities: No edema, Capillary Refill Less than 3 Seconds Skin: No rashes, No breakdown Neurological: Neuro grossly intact, Sensory exam intact to light touch and pain Psych/Mental Status: Normal Affect, Appropriate Microbiology Past 72 Hours 11/19/19 21:40 Urine, Clean Catch Urine Culture - Final Mixed Gram Positive Organisms Laboratory Results 11/20/19 22:03: POC Glucose 216 H 11/21/19 06:26: WBC 3.1 L, RBC 4.58, Hgb 12.7, Hct 38.7, MCV 84.5, MCH 27.7, MCHC 32.8, RDW Std Deviation 45.9 H, RDW Coeff of Sahra 15.0 H, Plt Count 131 L, MPV 12.6 H, Immature Gran % (Auto) 0.300, Neut % (Auto) 73.0 H, Lymph % (Auto) 15.3 L, [place] % (Auto) 8.9, Eos % (Auto) 1.9, Baso % (Auto) 0.6, Absolute Neuts (auto) 2.3, Absolute Lymphs (auto) 0.48 L, Nucleated RBC % 0, Diff Path Review October, Platelet Estimate ADEQUATE, RBC Morphology NORM C+C 11/21/19 06:26: Sodium 137, Potassium 4.8, Chloride 111 H, Carbon Dioxide 18.0 L , Anion Gap 8, BUN 38 H, Creatinine 3.11 H, Estim Creat Clear Calc 22.51, Est GFR (MDRD) Af Amer 21 L, Est GFR (MDRD) Non-Af 18 L, BUN/Creatinine Ratio 12.2, Glucose 206 H, Calcium 8.5, Magnesium 1.8 11/21/19 06:26: Tacrolimus Pending 11/21/19 06:37: POC Glucose 191 H 11/21/19 12:22: POC Glucose 270 H 11/21/19 16:31: POC Glucose 322 H Current Medications Acetaminophen (Tylenol) 650 mg PO Q6H PRN PRN PRN Reason: Pain Score 1-10/Temp > 100.7 F Albuterol Sulfate (Ventolin Aerosols) 2.5 mg INHALATION Q4H PRN Carvedilol (Coreg) 25 mg PO BID [facility] Last Admin: 11/21/19 08:27 Dose: 25 mg Documented by: Dextrose (D50w Syringe) 0 gm IV X1 PRN; Protocol PRN Reason: HYPOGLYCEMIA Dextrose (D50w Syringe) 0 gm IV X1 PRN; Protocol PRN Reason: Hypoglycemia Enoxaparin Sodium (Lovenox) 30 mg SC DAILY [facility] Last Admin: 11/21/19 08:28 Dose: Not Given Documented by: Gabapentin (Neurontin) 100 mg PO DAILY [facility] Last Admin: 11/21/19 09:24 Dose: 100 mg Documented by: Glucagon () 1 mg IM .X1 PRN PRN Reason: Hypoglycemia Hydromorphone HCl (Dilaudid Inj) 0.5 mg IV Q4H PRN PRN PRN Reason: Pain Score 6-10/10 Last Admin: 11/20/19 15:02 Dose: 0.5 mg Documented by: Ceftriaxone Sodium (Rocephin) 1 gm in 50 mls @ 100 mls/hr IV Q24 [facility] Last Infusion: 11/21/19 13:04 Dose: Infused Documented by: Sodium Chloride () 1,000 mls @ 75 mls/hr IV .[id number] [facility] Last Infusion: 11/21/19 13:04 Dose: 75 mls/hr Documented by: Insulin Glargine (Lantus (Bk)) 12 units SC 1100 [facility] Last Admin: 11/21/19 13:06 Dose: 12 u Documented by: Insulin Human Lispro (Humalog Kwikpen ([facility])) 0 unit SC ACHS [facility]; Protocol Last Admin: 11/21/19 16:32 Dose: 6 units Documented by: Mycophenolate Mofetil (Cellcept) 500 mg PO BID [facility] Last Admin: 11/21/19 08:27 Dose: 500 mg Documented by: Nifedipine (Procardia Xl) 30 mg PO BID [facility] Last Admin: 11/21/19 12:26 Dose: 30 mg Documented by: Ondansetron HCl (Zofran) 4 mg IV Q8H PRN PRN PRN Reason: NAUSEA/VOMITING Last Admin: 11/20/19 15:03 Dose: 4 mg Documented by: [facility] () [facility] Last Admin: 11/21/19 08:26 Dose: 5 mg Documented by: Sodium Chloride () 10 - 40 ml IV UD PRN PRN Reason: SALINE FLUSH Last Admin: 11/20/19 18:45 Dose: 10 ml Documented by: Tacrolimus (Prograf) 2 mg PO BID [facility] Last Admin: 11/21/19 09:25 Dose: 2 mg Documented by: Zolpidem Tartrate (Ambien (Generic)) 5 mg PO QHS PRN [place]O[facility] Vital Signs/Narrative: Vital Signs Temp Pulse Resp BP Pulse Ox 11/21/19 16:27 98.1 F 76 18 157/98 H 100 Medical Necessity - Tobacco Use Smoking Status: Former smoker Assessment/Plan All Active Problems (Last Reviewed 11/20/19 @ 00:[address] Aldo Smith MD) Diabetic ketoacidosis (Acute) Urinary tract infection (Acute) Nausea (Acute) Acute kidney injury superimposed on chronic kidney disease (Acute) Legionella pneumonia (Resolved) NEL (acute kidney injury) (Acute) 1. DKA with type 1 diabetes secondary to poor p.o. intake/CKD 3 with NEL -She struggles with eating and drinking at times, and she has early satiety though she is had 2 studies for gastroparesis that were both normal -There is a question of a possible UTI as the instigator for this DKA however her UA came back with mixed organisms less than 1000 colony-forming units -Her blood sugars under much better control now that she is been given a significant amount of insulin as well as IV fluids. -She was able to tolerate a regular diet for breakfast and lunch however she still is a little bit nervous about going home and would prefer to go home tomorrow if possible -We will continue with IV fluids for now as well as insulin -She will need to follow-up with her control clerk food and beverage within the next week or so upon discharge -Her GFR averages on the low end in the 20s. She is status post kidney transplant, kidney function is returning to baseline at 3.11 today -Prescient nephrology's assistance, tacrolimus level is pending 2. HTN/HLD -Blood pressure appears to be stable for her, she is in the 150s to 160s -We will continue with her home blood pressure medications, she follows with her primary care physician as well as nephrology. -Pseudohyponatremia resolved 3. Hematochezia resolved DVT: Lovenox Inpatient E&M: 12597 Subs Hosp L2
[2019-11-21 21:10] VITALS: BP 176/89; PULSE 76; RESP 18; TEMP 37.1; O2SAT 100
[2019-11-21 21:55] LABS: Bedside Glucose 309 mg/dL (70-110)
[2019-11-21 22:02] VITALS: BP 165/76; PULSE 81
[2019-11-22 02:27] VITALS: BP 157/75; PULSE 72; RESP 18; TEMP 37; O2SAT 100
[2019-11-22 05:32] LABS: Absolute Lymphocyte Count 0.73 X10^3/uL (0.83-4.51); Absolute Neutrophil Count 1.8 X10^3/uL (2.0-7.7); Basophil# 0.03 X10^3/uL; Eosinophil# 0.08 X10^3/uL; Eosinophils% 2.6 % (0-5); Hematocrit 36.8 % (37-47); Lymphocyte # 0.73 X10^3/ul (4.0); Lymphocyte % 23.7 % (19-41); Mean Corp Hgb Conc 32.6 g/dL (32-36); Mean Corpuscular Hgb 27.5 pg (27.0-32.0); Mean Corpuscular Volume 84.4 fL (81-99); Mean Platelet Vol. 12.4 fl (6.2-12.0); Monocyte# 0.47 X10^3/uL; Monocyte% 15.3 % (0-10); NRBC Flagged by Analyzer 0 % (0-5); Neutrophil # 1.76 X10^3/uL (2.7-7.7); Neutrophil % 57.1 % (47-70); Platelet Count 134 K/mm3 (150-450); RBC Distribution Width CV 15.4 % (11.6-14.6); RBC Distribution Width SD 46.6 fl (35.1-43.9); Red Blood Count 4.36 M/mm3 (4.2-5.4); White Blood Count 3.1 K/mm3 (4.4-11.0)
[2019-11-22 05:59] LABS: Anion Gap 9 (5-15); BUN 35 mg/dL (7-18); BUN/Creat Ratio 13.5 RATIO (10-20); Calcium,Total 8.7 mg/dL (8.5-10.1); Chloride 114 mmol/L (98-107); Creatinine, Serum 2.59 mg/dL (0.55-1.02); EST Glomerular Filtration Rate 22 mL/min (>60); Est Glom Filt Rate - Afr Amer 26 mL/min (>60); Estimated Creatinine Clearance 27.03 ml/min; Glucose 172 mg/dL (74-106); Potassium 4.2 mmol/L (3.5-5.1); Sodium Level 141 mmol/L (136-145)
[2019-11-22] MEDS: Insulin Lispro 100 UNIT/ML INSULN.PEN SC (06:52)
[2019-11-22 07:06] LABS: Bedside Glucose 157 mg/dL (70-110)
[2019-11-22 08:30] VITALS: BP 158/94; PULSE 73; RESP 16; TEMP 37.2; O2SAT 100
--- NOTE | 2019-11-22 08:42 | PN.RENAL_ITS ---
Patient Problems: Active and Suspected Problems (Last Reviewed 11/20/19 @ 00:[address] Aldo Smith MD) Diabetic ketoacidosis (Acute) Urinary tract infection (Acute) Subjective: Following for NEL on CKD. Pt feels much better. No CP, SOB or nausea today. Taking po well. - Physical Exam Vitals/I&O's: Vital Signs Temp Pulse Resp BP Pulse Ox 98.6 F 72 18 157/75 H 100 11/22/19 02:27 11/22/19 02:27 11/22/19 02:27 11/22/19 02:27 11/22/19 02:27 Oxygen Delivery Method Room Air Weight: 77.3 kg Body Mass Index (BMI) 26.7 Finger Stick Blood Glucose 111 Intake and Output for Last 24 Hours 11/20/19 11/21/19 11/22/19 23:59 23:59 23:59 Intake Total 3984.97 / 3984.97 3162.5 / 3162.5 400 / 400 Output Total 100 / 100 2100 / 2100 1300 / 1300 Balance 3884.97 / 3884.97 1062.5 / 1062.5 -900 / -900 General: Alert, Oriented x3 HEENT: Atraumatic, Normocephalic Oral: Moist Mucosa Neck: Supple Lungs: Clear to auscultation Cardiovascular: Normal S1, Normal S2, No murmurs Abdomen: Bowel Sounds Present, Soft, Non Tender Extremities: No clubbing, No cyanosis, No edema Microbiology Past 72 Hours 11/19/19 21:40 Urine, Clean Catch Urine Culture - Final Mixed Gram Positive Organisms Laboratory Results 11/21/19 12:22: POC Glucose 270 H 11/21/19 16:31: POC Glucose 322 H 11/21/19 21:07: POC Glucose 309 H 11/22/19 04:56: WBC 3.1 L, RBC 4.36, Hgb 12.0, Hct 36.8 L, MCV 84.4, MCH 27.5, MCHC 32.6, RDW Std Deviation 46.6 H, RDW Coeff of Sahra 15.4 H, Plt Count 134 L, MPV 12.4 H, Immature Gran % (Auto) 0.300, Neut % (Auto) 57.1, Lymph % (Auto) 23.7, [place] % (Auto) 15.3 H, Eos % (Auto) 2.6, Baso % (Auto) 1.0, Absolute Neuts (auto) 1.8 L, Absolute Lymphs (auto) 0.73 L, Nucleated RBC % 0 11/22/19 04:56: Sodium 141, Potassium 4.2, Chloride 114 H, Carbon Dioxide 18.0 L , Anion Gap 9, BUN 35 H, Creatinine 2.59 H, Estim Creat Clear Calc 27.03, Est GFR (MDRD) Af Amer 26 L, Est GFR (MDRD) Non-Af 22 L, BUN/Creatinine Ratio 13.5, Glucose 172 H, Calcium 8.7 11/22/19 06:51: POC Glucose 157 H Current Medications Acetaminophen (Tylenol) 650 mg PO Q6H PRN PRN PRN Reason: Pain Score 1-10/Temp > 100.7 F Albuterol Sulfate (Ventolin Aerosols) 2.5 mg INHALATION Q4H PRN Carvedilol (Coreg) 25 mg PO BID [facility] Last Admin: 11/21/19 21:17 Dose: 25 mg Documented by: Dextrose (D50w Syringe) 0 gm IV X1 PRN; Protocol PRN Reason: HYPOGLYCEMIA Dextrose (D50w Syringe) 0 gm IV X1 PRN; Protocol PRN Reason: Hypoglycemia Enoxaparin Sodium (Lovenox) 30 mg SC DAILY [facility] Last Admin: 11/21/19 08:28 Dose: Not Given Documented by: Gabapentin (Neurontin) 100 mg PO DAILY [facility] Last Admin: 11/21/19 09:24 Dose: 100 mg Documented by: Glucagon () 1 mg IM .X1 PRN PRN Reason: Hypoglycemia Hydromorphone HCl (Dilaudid Inj) 0.5 mg IV Q4H PRN PRN PRN Reason: Pain Score 6-10/10 Last Admin: 11/20/19 15:02 Dose: 0.5 mg Documented by: Ceftriaxone Sodium (Rocephin) 1 gm in 50 mls @ 100 mls/hr IV Q24 [facility] Last Infusion: 11/21/19 13:04 Dose: Infused Documented by: Sodium Chloride () 1,000 mls @ 75 mls/hr IV .[id number] [facility] Last Admin: 11/21/19 20:52 Dose: 75 mls/hr Documented by: Insulin Glargine (Lantus ([facility])) 12 units SC 1100 [facility] Last Admin: 11/21/19 13:06 Dose: 12 u Documented by: Insulin Human Lispro (Humalog Kwikpen ([facility])) 0 unit SC ACHS [facility]; Protocol Last Admin: 11/22/19 06:52 Dose: 2 units Documented by: Mycophenolate Mofetil (Cellcept) 500 mg PO BID [facility] Last Admin: 11/21/19 21:16 Dose: 500 mg Documented by: Nifedipine (Procardia Xl) 30 mg PO BID [facility] Last Admin: 11/21/19 21:17 Dose: 30 mg Documented by: Ondansetron HCl (Zofran) 4 mg IV Q8H PRN PRN PRN Reason: NAUSEA/VOMITING Last Admin: 11/20/19 15:03 Dose: 4 mg Documented by: [facility] () [facility] Last Admin: 11/21/19 08:26 Dose: 5 mg Documented by: Sodium Chloride () 10 - 40 ml IV UD PRN PRN Reason: SALINE FLUSH Last Admin: 11/20/19 18:45 Dose: 10 ml Documented by: Tacrolimus (Prograf) 2 mg PO BID [facility] Last Admin: 11/21/19 21:17 Dose: 2 mg Documented by: Zolpidem Tartrate (Ambien (Generic)) 5 mg PO QHS PRN Medical Necessity - Tobacco Use Smoking Status: Former smoker Assessment/Plan All Active Problems (Last Reviewed 11/20/19 @ 00:[address] Aldo Smith MD) Diabetic ketoacidosis (Acute) Urinary tract infection (Acute) Nausea (Acute) Acute kidney injury superimposed on chronic kidney disease (Acute) Legionella pneumonia (Resolved) NEL (acute kidney injury) (Acute) Impression: NEL is prerenal/ATN due to fluid depletion with nausea/vomiting. No evidence of obstruction on transplant kidney US. s/p DDRTX 2011, baseline Scr 2.2-2.4-followed by Dr. Cam as outpt DM DKA resolved Plan: Scr 3.48->3.31->3.11->2.59 over the past 4 days. Continue to encouraged oral solute/fluid intake. Trough tacrolimus level sent, will probabaly take a few days to come back. Low suspicion for tacrolimus toxicity. Continue current IS with prednisone, tacrolimus, and mycophenolate. Urine cx looks like contaminant. Defer decision regarding Abx to hospitalist. OK to dc home from the renal standpoint. If she is discharged, my office will arrange for follow up labs check and follow up office visit with Dr. Cam (she already has scheduled appointment with Dr. Cam on 12/01/19).
[2019-11-22] MEDS: Tacrolimus Anhydrous 1 MG Capsule 2 MG PO (08:55)
[2019-11-22] MEDS: Carvedilol 25 MG Tablet PO (08:55)
[2019-11-22] MEDS: Ceftriaxone 1 GM/50 ML BAG IV (08:55)
[2019-11-22] MEDS: predniSONE 5 MG Tablet PO (08:55)
[2019-11-22] MEDS: Mycophenolate Mofetil 250 MG Capsule 500 MG PO (08:55)
[2019-11-22] MEDS: Gabapentin 100 MG Capsule PO (08:55)
[2019-11-22] MEDS: NIFEdipine 30 MG Tablet PO (08:55)
--- NOTE | 2019-11-22 09:18 | DCINST_ITS ---
- Discharge Diagnoses Current Active Problems: Current Active and Chronic Problems (Last Reviewed 11/20/19 @ 00:[address] Aldo Smith MD) Diabetic ketoacidosis (Acute) Urinary tract infection (Acute) You will use the following diet at home:: Calorie/Carbohydrate Controlled (specify 1200, 1400, etc), Other - Eat your portions over a prolonged period of time Your food should be the consistency of: Regular Your liquids should be the consistency of: Regular/Thin Discharge Activity: Return to Normal Activity Call your doctor if you observe: Fever of 101 or Higher, Shortness of breath, Dizziness, Fainting spells, Swelling in the ankles, Chest pain, Increased palpitations (irregular heartbeat) Allergies/Adverse Reactions: Allergies furosemide [From Lasix] Allergy (Verified 11/19/19 19:11) Hives Medications to take at Discharge Gabapentin [Neurontin] 300 mg PO DAILY 01/20/18 Mycophenolate Mofetil 500 mg PO BID 01/20/18 Tacrolimus Anhydrous [Prograf] 2 mg PO BID 01/20/18 Insulin Aspart [Novolog Flexpen] 8 - 18 units SUBCUT TIDCM 01/27/18 albuterol sulfate 90 mcg/actuation aerosol inhaler 2 puff INHALATION Q6H PRN #8.5 g 02/16/19 Prednisone 5 mg PO DAILY 02/20/19 Acetaminophen [Tylenol Tablet] 650 mg PO Q6H PRN PRN tab 02/22/19 metoclopramide HCl 5 mg tablet 5 mg PO QACHS PRN #30 tab 05/18/19 carvedilol 25 mg tablet 25 mg PO BID #180 tab 11/10/19 zolpidem 10 mg tablet 10 mg PO QHS PRN #30 tab 11/10/19 Nifedipine [Nifedipine ER] 30 mg PO BID 11/19/19 Primary Care Physician: Aster Martin MD [Primary Care Provider] - Please follow up with your Primary Care Physician in: 3-5 days Test Results: Test results from this visit will be discussed in further detail at your follow- up appointment, if applicable. Please Follow Up With: [employer] Support Specialist When: 1-2 weeks
--- NOTE | 2019-11-22 10:29 | DS.PCM_ITS ---
Discharge Date and Diagnosis - Problem List Patient Problems: Active and Suspected Problems (Last Reviewed 11/20/19 @ 00:[address] Aldo Smith MD) Diabetic ketoacidosis (Acute) Urinary tract infection (Acute) Date of Admission: 11/19/19 Date of Discharge: 11/22/19 - Primary Discharge Diagnosis Acute Problems: Active Problems (Last Reviewed 11/20/19 @ 00:[address] Aldo Smith MD) Diabetic ketoacidosis (Acute) Urinary tract infection (Acute) - Secondary Discharge Diagnosis Chronic Problems: Chronic Problems (Last Reviewed 11/20/19 @ 00:[address] Aldo Smith MD) Gastroparesis (Chronic) Renal transplant recipient (Chronic) Legionnaires' disease (Chronic) History of chronic pancreatitis (Chronic) Neuropathy (Chronic) Kidney disease (Chronic) High cholesterol (Chronic) High blood pressure (Chronic) Diabetes (Chronic) Chronic bronchitis (Chronic) Cataracts, bilateral (Chronic) Anemia (Chronic) Seasonal allergies (Chronic) Hyperglycemia due to type 1 diabetes mellitus (Chronic) DM type 1 (diabetes mellitus, type 1) (Chronic) 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) Hospital Course and Treatment Imaging Results: CT Abd/Pelvis: IMPRESSION: 1. No acute findings or change since prior. 2. Bilateral adnexal presumably cystic structures. 3. Renal transplant. 4. Chronic pancreatitis. Renal US: IMPRESSION: Atrophic bilateral [place] kidneys.. Right renal transplant with findings suggestive of renal parenchymal disease. This may be partly due to artifact. 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 Also she reports episodic abdominal pain. She had left ovarian cyst removal in the first week of November 2019. She reported thereafter she developed a constipation. She attributes her constipation to antibiotic that she was on at that time. On the day of presentation she had a large bowel movement. She thinks that her stool contains blood. Of note she reported that. Ended about 3 days ago. She reported that with her ovarian cyst removal she still sees trickles of blood from her vagina. She reported that she has been on Reglan for nausea and vomiting. She reports anorexia; fatigue and lites headedness. She reported she has been able to take her antirejection medicine. However because she is not been eating much as she is not been taking her insulin. As she reported that she had a high blood g lucose at home. She reports a decrease urination. She denies any burning with urination. She called her PCP who advised her to come to the emergency department. Hospital Course: 1. DKA with type 1 diabetes secondary to poor p.o. intake/CKD 3 with NEL- 38-year-old female with a history of type 1 diabetes presents to the hospital after having multiple episodes of emesis and dehydration. She was found to be in DKA likely secondary to poor p.o. intake, she was initially admitted to the ICU on an insulin drip and improved quickly and was transferred to the [facility] floor. Urine culture was not significant for UTI but she did complete 3 days of Rocephin IV. She also had an NEL on admission with creatinine up to 3.77. On the day of discharge today, her creatinine is down to 2.56. Nephrology was consulted and performed a renal ultrasound and ordered a tacrolimus level which is still pending. They did state that they will follow that up as an outpatient. She is feeling much better today, her blood sugar is back down to where it should be and with the improvement in her kidney function with the IV fluids she is feeling much better and would like to go home. She did not want to be discharged on a long-acting insulin she would prefer to discuss with her nursery school teacher on Saturday as to any changes that she should do to her diabetes regimen. I did discuss with her that it is important to remain hydrated and that it is more important to be drinking water than to be eating if she has difficulty tolerating intake. She expressed understanding of the risks and benefits of going home today and would like to go home. 2. Her other medical diagnoses were evaluated and her home medications were continued where appropriate Patient Problems: Active and Suspected Problems (Last Reviewed 11/20/19 @ 00:[address] Aldo Smith MD) Diabetic ketoacidosis (Acute) Urinary tract infection (Acute) - Physical Exam Vitals/I&O's: Vital Signs Temp Pulse Resp BP Pulse Ox 98.9 F 73 16 158/94 H 100 06/21/20 08:30 11/22/19 08:30 11/22/19 08:30 11/22/19 08:30 11/22/19 08:30 Oxygen Delivery Method Room Air Weight: 170 lb 6.4 oz Body Mass Index (BMI) 26.7 Finger Stick Blood Glucose 111 Intake and Output for Last 24 Hours 11/20/19 11/21/19 11/22/19 23:59 23:59 23:59 Intake Total 3984.97 / 3984.97 3162.5 / 3162.5 1308.75 / 1308.75 Output Total 100 / 100 2100 / 2100 1300 / 1300 Balance 3884.97 / 3884.97 1062.5 / 1062.5 8.75 / 8.75 General: Alert, Oriented x3, Cooperative, No apparent distress HEENT: Atraumatic, PERRLA, EOMI, Normocephalic Oral: Moist Mucosa Neck: Supple, No JVD Lungs: Clear to auscultation, Normal air movement, No rhonchi, No wheeze, No rales, Diminished Cardiovascular: Regular rate, Regular Rhythm, Normal S1, Normal S2, No murmurs Abdomen: Soft, Non Tender, Non-Distended, No Hepato-splenomegaly Extremities: No edema, Capillary Refill Less than 3 Seconds Skin: No rashes, No breakdown Neurological: Neuro grossly intact, Sensory exam intact to light touch and pain Psych/Mental Status: Normal Affect, Appropriate Microbiology Past 72 Hours 11/19/19 21:40 Urine, Clean Catch Urine Culture - Final Mixed Gram Positive Organisms Laboratory Results 11/21/19 12:22: POC Glucose 270 H 11/21/19 16:31: POC Glucose 322 H 11/21/19 21:07: POC Glucose 309 H 11/22/19 04:56: WBC 3.1 L, RBC 4.36, Hgb 12.0, Hct 36.8 L, MCV 84.4, MCH 27.5, MCHC 32.6, RDW Std Deviation 46.6 H, RDW Coeff of Sahra 15.4 H, Plt Count 134 L, MPV 12.4 H, Immature Gran % (Auto) 0.300, Neut % (Auto) 57.1, Lymph % (Auto) 23.7, [place] % (Auto) 15.3 H, Eos % (Auto) 2.6, Baso % (Auto) 1.0, Absolute Neuts (auto) 1.8 L, Absolute Lymphs (auto) 0.73 L, Nucleated RBC % 0 11/22/19 04:56: Sodium 141, Potassium 4.2, Chloride 114 H, Carbon Dioxide 18.0 L , Anion Gap 9, BUN 35 H, Creatinine 2.59 H, Estim Creat Clear Calc 27.03, Est GFR (MDRD) Af Amer 26 L, Est GFR (MDRD) Non-Af 22 L, BUN/Creatinine Ratio 13.5, Glucose 172 H, Calcium 8.7 11/22/19 06:51: POC Glucose 157 H Current Medications Acetaminophen (Tylenol) 650 mg PO Q6H PRN PRN PRN Reason: Pain Score 1-10/Temp > 100.7 F Albuterol Sulfate (Ventolin Aerosols) 2.5 mg INHALATION Q4H PRN Carvedilol (Coreg) 25 mg PO BID [facility] Last Admin: 11/22/19 08:55 Dose: 25 mg Documented by: Dextrose (D50w Syringe) 0 gm IV X1 PRN; Protocol PRN Reason: HYPOGLYCEMIA Dextrose (D50w Syringe) 0 gm IV X1 PRN; Protocol PRN Reason: Hypoglycemia Enoxaparin Sodium (Lovenox) 30 mg SC DAILY [facility] Last Admin: 11/22/19 08:52 Dose: Not Given Documented by: Gabapentin (Neurontin) 100 mg PO DAILY [facility] Last Admin: 11/22/19 08:55 Dose: 100 mg Documented by: Glucagon () 1 mg IM .X1 PRN PRN Reason: Hypoglycemia Hydromorphone HCl (Dilaudid Inj) 0.5 mg IV Q4H PRN PRN PRN Reason: Pain Score 6-10/10 Last Admin: 11/20/19 15:02 Dose: 0.5 mg Documented by: Ceftriaxone Sodium (Rocephin) 1 gm in 50 mls @ 100 mls/hr IV Q24 [facility] Last Admin: 11/22/19 08:55 Dose: 100 mls/hr Documented by: Sodium Chloride () 1,000 mls @ 75 mls/hr IV .[id number] [facility] Last Infusion: 11/22/19 08:59 Dose: 0 mls/hr Documented by: Insulin Glargine (Lantus (Bkc)) 12 units SC 1100 [facility] Last Admin: 11/21/19 13:06 Dose: 12 u Documented by: Insulin Human Lispro (Humalog Kwikpen ([facility])) 0 unit SC ACHS [facility]; Protocol Last Admin: 11/22/19 06:52 Dose: 2 units Documented by: Mycophenolate Mofetil (Cellcept) 500 mg PO BID [facility] Last Admin: 11/22/19 08:55 Dose: 500 mg Documented by: Nifedipine (Procardia Xl) 30 mg PO BID [facility] Last Admin: 11/22/19 08:55 Dose: 30 mg Documented by: Ondansetron HCl (Zofran) 4 mg IV Q8H PRN PRN PRN Reason: NAUSEA/VOMITING Last Admin: 11/20/19 15:03 Dose: 4 mg Documented by: [facility] () [facility] Last Admin: 11/22/19 08:55 Dose: 5 mg Documented by: Sodium Chloride () 10 - 40 ml IV UD PRN PRN Reason: SALINE FLUSH Last Admin: 11/20/19 18:45 Dose: 10 ml Documented by: Tacrolimus (Prograf) 2 mg PO BID [facility] Last Admin: 11/22/19 08:55 Dose: 2 mg Documented by: Zolpidem Tartrate (Ambien (Generic)) 5 mg PO QHS PRN Discharge Activity: Return to Normal Activity Call your doctor if you observe: Fever of 101 or Higher, Shortness of breath, Dizziness, Fainting spells, Swelling in the ankles, Chest pain, Increased palpitations (irregular heartbeat) Home Medications: Medications to take at Discharge Gabapentin [Neurontin] 300 mg PO DAILY 01/20/18 Mycophenolate Mofetil 500 mg PO BID 01/20/18 Tacrolimus Anhydrous [Prograf] 2 mg PO BID 01/20/18 Insulin Aspart [Novolog Flexpen] 8 - 18 units SUBCUT TIDCM 01/27/18 albuterol sulfate 90 mcg/actuation aerosol inhaler 2 puff INHALATION Q6H PRN #8.5 g 02/16/19 Prednisone 5 mg PO DAILY 02/20/19 Acetaminophen [Tylenol Tablet] 650 mg PO Q6H PRN PRN tab 02/22/19 metoclopramide HCl 5 mg tablet 5 mg PO QACHS PRN #30 tab 05/18/19 carvedilol 25 mg tablet 25 mg PO BID #180 tab 11/10/19 zolpidem 10 mg tablet 10 mg PO QHS PRN #30 tab 11/10/19 Nifedipine [Nifedipine ER] 30 mg PO BID 11/19/19 Primary Care Physician: Aster Martin MD [Primary Care Provider] - Please follow up with your Primary Care Physician in: 3-5 days Please Follow Up With: Home Furnishings Sales Representative When: 1-2 weeks Disposition: Home Minutes spent on discharge:: 35 Patient Condition:: Stable Medical Necessity - Tobacco Use Smoking Status: Former smoker Meaningful Use Info Meaningful Use Diagnoses (Choose all that apply): None applicable Inpatient E&M: [id number] [facility]
--- NOTE | 2019-11-22 11:44 | NURSING ---
Addendum entered by Nicole Benavides 11/22/19 12:00: pt states she does not want bgt checked here and that she wants to take care of all of that at home prior to eating lunch. Original Note: pt upset with retail shift manager due to reporting that IV was alarming for like 10 damn minutes early this morning until staff finally came in to turn it off. This RN had patients on 2 different [place]elson of unit this shift- this RN happened to be returning to her side of nicolas when heard IV pump alarming through closed door to patient's room. This RN entered and pt laying on left side- this RN asked pt is she called out to notify staff- she states, no I figured it wouldn't even matter. This RN apologized to patient for alarming IV and also notified her that this RN was not aware until this moment. Around 1100 patient's fiance called in and spoke with secretary of state and states he thinks patient is lying and he wants to know if she has had a bowel movement while in hospital. (this RN busy assisting another patient in another room.) Pt evidently told him she wasn't but didn't mention any issue to this RN throughout morning. Pt denies pain to abdomen or discomfort and has been laying in bed watching videos and laughing. When discharging patient this RN notified patient that fiance called in to hospital and wanted information regarding her bowel movements. Notified patient that this RN cannot give personal information over the phone without consent of patient. Patient states my mom and my fiance are so overprotective. She states that there is no need and that he will be here to pick her up soon. Pt requested towels, washcloths and body soap= all given to patient to prepare for d/c.
[2019-11-22] MEDS: Senna Tablet 2 TABLET PO (11:55)
[2019-11-24 09:44] LABS: Pathologist Review Reviewed
[2019-11-24 16:34] LABS: Tacrolimus (FK506) 11.3 ng/mL (2.0-20.0)
== END 2019-11-22 12:22 | disposition home or self-care (01) | DRG 637 ==
LOC: ED 23:30 → ICU 11-20 00:10 → MS3 11-21 07:07 → ICU 11-23 08:48
PROVIDERS: Internal Medicine; Admitting Provider Hospitalist; Emergency Provider Emergency Medicine; PCP Internal Medicine; Visit Provider Family Medicine
DX: E10.10 Type 1 diabetes mellitus with ketoacidosis without coma (principal); N17.0 Acute kidney failure with tubular necrosis; K86.1 Other chronic pancreatitis; K92.1 Melena; E10.22 Type 1 diabetes mellitus with diabetic chronic kidney disease; N18.3 Chronic kidney disease, stage 3 (moderate); Z87.891 Personal history of nicotine dependence; K31.84 Gastroparesis; E10.43 Type 1 diabetes mellitus with diabetic autonomic (poly)neuropathy; I12.9 Hypertensive chronic kidney disease with stage 1 through stage 4 chronic kidney disease, or unspecified chronic kidney disease; E78.5 Hyperlipidemia, unspecified; Z98.890 Other specified postprocedural states
CPT/HCPCS: 36415; 74176; 76770; 80048; 80053; 80197; 81001; 82009; 82962; 83036; 83690; 83735; 84100; 84703; 85025; 87086; 87088; 97110; 97116; 97162; 97166; 97535; 97802; 99285; J7030; A4216; J2405

== ENCOUNTER → 2019-12-11 08:34 | Outpatient (CLI) | payer MEDICARE, MEDICAID, SELFPAY ==
[2019-11-26 13:48] VITALS: BMI 26.7
[2019-12-11 08:19] VITALS: BMI 26.7
[2019-12-11 12:59] LABS: Vitamin D,25 Hydroxy 17.8 ng/mL
[2019-12-11 13:00] LABS: ALB/GLOB Ratio 0.7 RATIO (0.9-2.4); AST(SGOT) 9 U/L (15-37); Alanine Aminotransfer ALT/SGPT 16 U/L (13-56); Albumin, Serum 3.4 g/dL (3.2-5.0); Alkaline Phosphatase 65 U/L (45-117); Anion Gap 7 (5-15); BUN 28 mg/dL (7-18); BUN/Creat Ratio 12.2 RATIO (10-20); Chloride 106 mmol/L (98-107); Cholesterol 369 mg/dL (200); Creatinine, Serum 2.29 mg/dL (0.55-1.02); EST Glomerular Filtration Rate 25 mL/min (>60); Est Glom Filt Rate - Afr Amer 30 mL/min (>60); Globulin 4.6 g/dL (2.2-4.2); Glucose 101 mg/dL (74-106); High Density Lipoprotein 50 mg/dL; Magnesium 2.2 mg/dL (1.6-2.6); Phosphorus 3.2 mg/dL (2.5-4.9); Sodium Level 137 mmol/L (136-145); Triglycerides 211 mg/dL; Very Low Density Lipoprotein 42 mg/dL (5-40)
[2019-12-11 13:03] LABS: Hematocrit 39.2 % (37-47); Hemoglobin 12.8 g/dL (12.0-15.0); Mean Corp Hgb Conc 32.7 g/dL (32-36); Mean Corpuscular Hgb 28.5 pg (27.0-32.0); Mean Corpuscular Volume 87.3 fL (81-99); Mean Platelet Vol. 11.9 fl (6.2-12.0); Platelet Count 226 K/mm3 (150-450); RBC Distribution Width CV 16.6 % (11.6-14.6); RBC Distribution Width SD 50.9 fl (35.1-43.9); Red Blood Count 4.49 M/mm3 (4.2-5.4); White Blood Count 3.7 K/mm3 (4.4-11.0)
[2019-12-11 13:18] LABS: Protein, Urine (Random) 334.9 mg/dL (<11.9)
== END ==
PROVIDERS: PCP Internal Medicine
DX: N39.0 Urinary tract infection, site not specified (principal); E78.5 Hyperlipidemia, unspecified; E55.9 Vitamin D deficiency, unspecified; Z94.0 Kidney transplant status; Z91.89 Other specified personal risk factors, not elsewhere classified
CPT/HCPCS: 36415; 80053; 80061; 80197; 82306; 82570; 83735; 84100; 84156; 85027; 87086

== ENCOUNTER 2019-12-29 17:11 | Inpatient (IN) | payer MEDICARE, MEDICAID, SELFPAY ==
[2019-12-11 08:19] VITALS: BMI 26.7
[2019-12-29 17:12] VITALS: BP 122/69; PULSE 82; RESP 16; TEMP 36.3; O2SAT 99; BMI 28.2
[2019-12-29 18:09] VITALS: BP 122/69; PULSE 82; RESP 16; TEMP 36.3; O2SAT 99
--- NOTE | 2019-12-29 18:09 | CT_ITS ---
STUDY: CT ABDOMEN AND PELVIS WITHOUT CONTRAST REASON FOR EXAM: Female, 39 years old. Right lower quadrant and right flank pain. Weakness and diarrhea. Kidney transplant. Colostomy with reversal. RADIATION DOSAGE (If Supplied By Facility): CTDIvol = ( 8.37 ) mGy, DLP = ( 439.12 ) mGycm TECHNIQUE: Transaxial images were obtained from the dome of the diaphragm to the symphysis pubis with oral contrast, and without intravenous contrast. Sagittal and coronal images were reconstructed. Individualized dose optimization techniques were used for this CT. COMPARISON: 11-19-19. FINDINGS: The visualized lung bases are unremarkable. The visualized portions of the heart are within normal limits. Normal liver. Normal gallbladder and extrahepatic biliary system. Normal spleen. There are pancreatic calcifications in the distribution of the ducts consistent with chronic pancreatitis. Normal bilateral adrenal glands. Stable severe bilateral renal atrophy. Prominent vascular calcifications of the kidneys. No hydronephrosis. Normal visualized stomach. Normal small intestine. Normal colon. There is non-visualization of the appendix. There is diffuse atherosclerotic calcification of the abdominal aorta, without a demonstrated aneurysm. Normal inferior vena cava. Normal retroperitoneum. Normal appearing renal transplant in the right lower quadrant. Normal urinary bladder. Stable exophytic 4.3 cm fibroid extending to the left from the fundus of the uterus. There is a small umbilical hernia containing fat. Normal osseous structures. CT/Abdomen/Pel W ORAL Cont Only IMPRESSION: No acute abnormality. Severe renal atrophy. Grossly normal appearance of the right lower quadrant renal transplant. Stable fibroid uterus. Electronically Signed: Mikey Álvarez MD at 20:13 EDT , Service support ,
[2019-12-29 18:40] LABS: Absolute Neutrophil Count 4.4 X10^3/uL (2.0-7.7); Basophil# 0.02 X10^3/uL; Basophil% 0.4 % (0-1); Eosinophil# 0.13 X10^3/uL; Eosinophils% 2.4 % (0-5); Hematocrit 42.3 % (37-47); Lymphocyte % 9.2 % (19-41); Mean Corp Hgb Conc 33.1 g/dL (32-36); Mean Corpuscular Hgb 27.3 pg (27.0-32.0); Mean Corpuscular Volume 82.6 fL (81-99); Mean Platelet Vol. 11.4 fl (6.2-12.0); Monocyte# 0.37 X10^3/uL; Monocyte% 6.8 % (0-10); NRBC Flagged by Analyzer 0 % (0-5); Neutrophil # 4.37 X10^3/uL (2.7-7.7); Neutrophil % 80.8 % (47-70); POSITIVE DIFFERENTIAL YES; Platelet Count 211 K/mm3 (150-450); RBC Distribution Width CV 15.9 % (11.6-14.6); RBC Distribution Width SD 47.5 fl (35.1-43.9); Red Blood Count 5.12 M/mm3 (4.2-5.4); White Blood Count 5.4 K/mm3 (4.4-11.0)
[2019-12-29 18:42] LABS: Differential Indicated SCAN CRITERIA MET
[2019-12-29 19:12] VITALS: BP 122/69; PULSE 82; RESP 16; TEMP 36.3; O2SAT 99
--- NOTE | 2019-12-29 19:32 | ED.VIS.GEN ---
History of Present Illness Chief Complaint: General Illness Informant: Patient Onset: Days Context: Sudden Onset Timing: Continuous Quality: Right-sided abdominal pain with nausea, vomiting diarrhea Location: Right sided abdomen Current Severity: Mild Maximum Severity: Moderate Worsened by: Vomiting and diarrhea Relieved by: Nothing Associated Symptoms: Chills Narrative: Patient is a 39-year-old renal recipient who presents with right side abdominal pain with nausea, vomiting diarrhea. She reports chills without documented fever. She denies headache. Denies visual disturbance. She denies photophobia, neck pain or neck stiffness. She denies rhinorrhea, congestion or postnasal drainage. She denies change in taste or smell. She denies sore throat. She denies cough, shortness of breath or difficulty breathing. She denies chest pain. She reports decreased urine output without dysuria, frequency or hematuria. She denies blood in her emesis or stool. She has not noted any mucus. She is status post appendectomy Prior similar symptoms: Yes Recent Illness/Hospitalization: No - Past Medical History (1) Acute kidney injury superimposed on chronic kidney disease Status: Acute (2) Urinary tract infection Status: Acute (3) Anemia Status: Chronic (4) CKD stage 3 due to type 1 diabetes mellitus Status: Chronic (5) Cataracts, bilateral Status: Chronic (6) DM type 1 (diabetes mellitus, type 1) Status: Chronic (7) Gastroparesis Status: Chronic (8) High blood pressure Status: Chronic (9) High cholesterol Status: Chronic (10) History of chronic pancreatitis Status: Chronic (11) Neuropathy Status: Chronic (12) Renal transplant recipient Status: Chronic (13) Amenorrhea Status: Inactive Past Medical History - Allergies and Home Meds Allergies/Adverse Reactions: Allergies furosemide [From Lasix] Allergy (Verified 12/29/19 17:12) Hives Primary Care Physician: Aster Martin MD [Primary Care Provider] - Prior records reviewed: Yes Surgical History: appendectomy, - - Status post kidney transplant, poor wound debridement, diverting sigmoid colostomy on 07/06/2017, reversed on 07/07/2017, percutaneous tracheostomy, no longer has, left TMA Lives: Spouse/ Significant Other Smoking Status: Former smoker Alcohol: None Drugs: None - Family History Maternal Family History: Family History (Last Reviewed 11/20/19 @ 00:[address] Aldo Smith MD) Mother Asthma Hypertension Father Myocardial infarction Family History: Reports: Diabetes, Hypertension Paternal Family History: Family History (Last Reviewed 11/20/19 @ 00:[address] Aldo Smith MD) Mother Asthma Hypertension Father Myocardial infarction Family History: Reports: No pertinent history Review of Systems General: Denies: Chills, Fever, Sweats Eyes: Denies: Visual changes - bilaterally, Blurred Vision - bilaterally ENT: Denies: Bilateral ear pain, Rhinorrhea, Sore throat Cardiovascular: Denies: Chest pain, Palpitations Respiratory: Denies: Dyspnea, Cough, Dyspnea on exertion Gastrointestinal: Reports: Abdominal pain, Nausea, Vomiting, Diarrhea. Denies: Constipation, Melena, Hematochezia, -, - Genitourinary: Denies: Dysuria, Hematuria, Frequency Musculoskeletal: Reports: Myalgias, Arthralgias. Denies: Neck pain, Back pain, Swelling, Extremity Pain, -, - Skin: Denies: Rash, Wounds Neurological: Reports: Weakness. Denies: Headache, Parasthesia, Numbness Psych: Reports: Depression Hematologic: Denies: Easy bruising, Easy bleeding Allergy: Denies: Uticaria Physical Exam Vital Signs/Narrative: Vital Signs Temp Pulse Resp BP Pulse Ox 12/29/19 19:12 97.4 F L 82 16 122/69 H 99 12/29/19 18:09 97.4 F L 82 16 122/69 H 99 12/29/19 17:12 97.4 F L 82 16 122/69 H 99 Inital Vital Signs reviewed: Yes General: Well nourished, Well developed, No Acute Distress, - - She does not appear well. Head: Normocephalic, Atraumatic Eyes: Perrl, EOMI, Pale conjunctiva. Negative for: Scleral icterus ENT: No rhinorrhea, TM's clear, Dry mucous membranes Neck: Supple, Nontender, No lymphadenopathy, No JVD, - Cardiovascular: Regular rate, Regular rhythm, No murmurs, Normal S1, Normal S2 Respiratory: No distress, CTA bilaterally, Chest nontender Abdomen: Soft, Nondistended, No masses, Tender, Guarding, Hypoactive bowel sounds. Negative for: Nontender, Normal bowel sounds, Rebound tenderness, Hepatomegaly, Splenomegaly, Mass, Pulsatile mass, Ventral hernia, Inguinal hernia Rectal: Deferred Back: Nontender, Normal Inspection. Negative for: CVA tenderness Extremities: Nontender, No edema Skin: Normal color, No rash Neurological: Alert, Oriented x3, Cranial nerves II-XII grossly intact, Normal Strength, Normal Sensation, Normal Gait Psychological: Depressed Diagnostic/Tx/Re-eval Impressions Abdomen CT 12/29/19 18:09 IMPRESSION: No acute abnormality. Severe renal atrophy. Grossly normal appearance of the right lower quadrant renal transplant. Stable fibroid uterus. Electronically Signed: Mikey Álvarez MD at 20:13 EDT , Service support , 12/29/19 18:09 Abdomen/Pel W ORAL Cont Only [CT] Stat Laboratory Results 12/29/19 12/29/19 12/29/19 18:30 18:30 19:40 WBC 5.4 RBC 5.12 Hgb 14.0 Hct 42.3 MCV 82.6 MCH 27.3 MCHC 33.1 RDW Std Deviation 47.5 H RDW Coeff of Sahra 15.9 H Plt Count 211 MPV 11.4 Immature Gran % (Auto) 0.400 Neut % (Auto) 80.8 H Lymph % (Auto) 9.2 L [place] % (Auto) 6.8 Eos % (Auto) 2.4 Baso % (Auto) 0.4 Absolute Neuts (auto) 4.4 Absolute Lymphs (auto) 0.50 L Nucleated RBC % 0 Differential Comment COMMENT Sodium Cancelled 134 L Potassium Cancelled 4.3 Chloride Cancelled 103 Carbon Dioxide Cancelled 20.0 L Anion Gap Cancelled 11 BUN Cancelled 65 H Creatinine Cancelled 5.18 H Estim Creat Clear Calc Cancelled 13.38 Est GFR (MDRD) Af Amer Cancelled 12 L Est GFR (MDRD) Non-Af Cancelled 10 L BUN/Creatinine Ratio Cancelled 12.5 Glucose Cancelled 249 H Calcium Cancelled 9.0 Total Bilirubin Cancelled 0.60 AST Cancelled 11 L ALT Cancelled 9 L Alkaline Phosphatase Cancelled 53 Total Protein Cancelled 7.0 Albumin Cancelled 3.0 L Globulin Cancelled 4.0 Albumin/Globulin Ratio Cancelled 0.8 L He was 2.19 earlier this month. Patient with acute kidney injury on chronic renal insufficiency. Hospitalist was paged for continued IV hydration. - Medical Decision Making Since patient is immune suppressed with abdominal pain and significant GI findings and complaints CT the abdomen with p.o. contrast was ordered. The AUC recommended contrast however with history of chronic renal failure and kidney recipient contrast is not recommended. She was medicated with Zofran and morphine for her nausea and pain. Appropriate labs were obtained. ED Disposition - Plan for ED Patient: Disposition: Acute Care Hospital [facility] Diagnosis: Acute on chronic renal failure, Renal transplant recipient, Abdominal pain, vomiting, and diarrhea, Hyperglycemia due to type 1 diabetes mellitus Referrals: Aster Martin MD [Primary Care Provider] -
[2019-12-29 20:14] LABS: ALB/GLOB Ratio 0.8 RATIO (0.9-2.4); AST(SGOT) 11 U/L (15-37); Alanine Aminotransfer ALT/SGPT 9 U/L (13-56); Alkaline Phosphatase 53 U/L (45-117); Anion Gap 11 (5-15); BUN 65 mg/dL (7-18); BUN/Creat Ratio 12.5 RATIO (10-20); Chloride 103 mmol/L (98-107); Creatinine, Serum 5.18 mg/dL (0.55-1.02); EST Glomerular Filtration Rate 10 mL/min (>60); Est Glom Filt Rate - Afr Amer 12 mL/min (>60); Estimated Creatinine Clearance 13.38 ml/min; Glucose 249 mg/dL (74-106); Potassium 4.3 mmol/L (3.5-5.1); Sodium Level 134 mmol/L (136-145)
[2019-12-29] MEDS: Dicyclomine 10 MG Capsule 20 MG PO (21:20)
[2019-12-29] MEDS: 0.9% Normal Saline 1,000 ML 1000 ML IV (21:26)
--- NOTE | 2019-12-29 21:35 | HP.PCM_ITS ---
History of Present Illness Date of Admission: 12/29/19 Chief Complaint: diarrhea, vomiting, abdominal pain The patient is a 39 year old F with a PMH as outlined who was admitted via the ED on 12/21/2019 with a complaint of abdominal pain, diarrhea and vomiting which have been going on for about 3 days prior to admission. Patient has a history of right renal transplant done in 2011 at [facility] [place] in [facility]. She has been on tacrolimus since then. Kidney transplant was done on account of ESRD from diabetes. She states she ate fish andres on Saturday about 3 days prior to presentation. Subsequently she started having serious abdominal pain which was mainly right-sided and cramping with no aggravating or relieving factors. She also had profuse diarrhea and vomiting and said she was actually having diarrhea in her bed and soiling her sheets. She also had numerous episodes of vomiting daily. She had no assisted fever or chills and was not able to keep anything down at all. She had no shortness of breath, chest pain or burning with urination. Review of symptoms otherwise negative. Concerns were not abating so she decided coming to the ED today. In the ED, vitals showed temperature of 97.4 Fahrenheit with blood pressure 122/69, pulse rate of 82 respiratory rate of 16. She was saturating at 99% on room air. Chemistry showed sodium of 134 with potassium of 4.3 and bicarb of 20 with anion gap of 11. Creatinine was 5.18. Glucose was 249 and CBC showed hemoglobin of 14 with WBC of 5.4 and platelets of 211. Abdominopelvic CT scan done showed no acute abnormality but showed severe renal atrophy and grossly normal appearance of the right lower quadrant renal transplant as well as stable fibroid uterus. She has been admitted to be managed for NEL on CKD in a patient with kidney transplant and acute gastroenteritis. [] Past Medical History Past Medical History (Chronic Problems): Chronic Problems (Last Reviewed 11/20/19 @ 00:[address] Aldo Smith MD) Acute on chronic renal failure (Chronic) Gastroparesis (Chronic) Renal transplant recipient (Chronic) Legionnaires' disease (Chronic) History of chronic pancreatitis (Chronic) Neuropathy (Chronic) Kidney disease (Chronic) High cholesterol (Chronic) High blood pressure (Chronic) Diabetes (Chronic) Chronic bronchitis (Chronic) Cataracts, bilateral (Chronic) Anemia (Chronic) Seasonal allergies (Chronic) Hyperglycemia due to type 1 diabetes mellitus (Chronic) DM type 1 (diabetes mellitus, type 1) (Chronic) 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) Medical History: Medical History (Last Reviewed 11/20/19 @ 00:[address] Aldo Smith MD) Legionnaires' disease (Chronic) A48.1 History of chronic pancreatitis (Chronic) Z87.19 Neuropathy (Chronic) G62.9 Kidney disease (Chronic) N28.9 High cholesterol (Chronic) E78.00 High blood pressure (Chronic) I10 Diabetes (Chronic) E11.9 Chronic bronchitis (Chronic) J42 Cataracts, bilateral (Chronic) H26.9 Anemia (Chronic) D64.9 Seasonal allergies (Chronic) J30.2 Allergies furosemide [From Lasix] Allergy (Verified 12/29/19 17:12) Hives Home Medications: Ambulatory Orders Medication Instructions Recorded Gabapentin [Neurontin] 300 mg PO QHS 01/20/18 Mycophenolate Mofetil 500 mg PO BID 01/20/18 Tacrolimus Anhydrous [Prograf] 2 mg PO BID 01/20/18 Insulin Aspart [Novolog Flexpen] 8 - 18 units SUBCUT TIDCM 01/27/18 Prednisone 5 mg PO DAILY 02/20/19 metoclopramide HCl 5 mg tablet 5 mg PO QACHS PRN #30 tab 05/18/19 carvedilol 25 mg tablet 25 mg PO BID #180 tab 11/10/19 insulin detemir U-100 100 unit/mL 15 unit SC QHS 11/26/19 (3 mL) subcutaneous pen zolpidem 10 mg tablet 10 mg PO QHS PRN #30 tab 12/09/19 Acetaminophen [Tylenol Extra 1,000 mg PO Q6H PRN PRN 12/29/19 Strength] Albuterol Sulfate [Albuterol 2 puff INHALATION Q6H PRN PRN 12/29/19 Sulfate Hfa] Nifedipine [Nifedipine ER] 30 mg PO BID 12/29/19 Polyethylene Glycol 3350 17 g PO DAILY PRN PRN 12/29/19 Surgical History: Surgical History (Last Reviewed 11/20/19 @ 00:[address] Aldo Smith MD) Renal transplant recipient (Chronic) Z94.0 History of amputation of toe Z89.429 History of eye surgery Z98.890 Retina History of kidney transplant Z94.0 2011 Surgical History: appendectomy, - - Status post kidney transplant, poor wound debridement, diverting sigmoid colostomy on 07/06/2017, reversed on 07/07/2017, percutaneous tracheostomy, no longer has, left TMA Psychiatric History: No pertinent psych hx PHYSICIAN ALLERGIST IMMUNOLOGIST History: No pertinent PHYSICIAN ALLERGIST IMMUNOLOGIST history Lives: Spouse/ Significant Other Smoking Status: Former smoker Alcohol: None Drugs: None - *Family History Maternal Family History: Family History (Last Reviewed 11/20/19 @ 00:[address] Aldo Smith MD) Mother Asthma Hypertension Father Myocardial infarction History Items: Diabetes, Hypertension Paternal Family History: Family History (Last Reviewed 11/20/19 @ 00:[address] Aldo Smith MD) Mother Asthma Hypertension Father Myocardial infarction History Items: No pertinent history Review of Systems Constitutional: Reports: Anorexia, Chills, Malaise, Weakness, Fatigue. Denies: Fever Eyes: Denies: Blurred vision HEENT: Denies: Head Aches, Sinus Congestion, Sinus Drainage Cardiovascular: Denies: Chest Pain, Chest Pressure, Chest Tightness, Heaviness, Light Headedness, Palpitations Respiratory: Denies: Cough, Shortness of Breath, Shortness of breath at rest, Shortness of breath upon exertion, Sputum production Gastrointestinal: Reports: Abdominal Pain, Diarrhea, Nausea, Vomiting. Denies: Melena Genitourinary: Denies: Dysuria Musculoskeletal: Denies: Joint Pain, Joint Tenderness Skin: Denies: Rash, Wounds Neurological: Denies: Numbness, Tingling, Focal weakness Psychiatric: Denies: Anxiety, Depression, Homicidal Ideations, Suicidal Ideations Hematologic/ Lymphatic: Denies: Easy Bruising, Easy Bleeding VTE Information - Inpt Only VTE Present on Admission: No VTE Pharm Prophylaxis ordered?: Yes Patient Problems: Active and Suspected Problems (Last Reviewed 11/20/19 @ 00:[address] Aldo guadalupe MD) Abdominal pain, vomiting, and diarrhea (Acute) - Physical Exam Vitals/I&O's: Vital Signs Temp Pulse Resp BP Pulse Ox 97.4 F L 82 16 122/69 H 99 12/29/19 19:12 12/29/19 19:12 12/29/19 19:12 12/29/19 19:12 12/29/19 19:12 Oxygen Delivery Method Room Air Weight: 175 lb Body Mass Index (BMI) 28.2 Finger Stick Blood Glucose 111 General: Alert, Oriented x3, Cooperative, Lethargic HEENT: Atraumatic, PERRLA, EOMI, Normocephalic Oral: Dry Mucosa Neck: Supple, No JVD, Negative Carotid Bruits Lungs: Clear to auscultation, Normal air movement Cardiovascular: Regular rate, Regular Rhythm, Normal S1, Normal S2, No murmurs Abdomen: Bowel Sounds Present, Soft, - - moderate right flank tenderness, no guarding or rebound tenderness. Extremities: No clubbing, No cyanosis, No edema, Capillary Refill Less than 3 Seconds Skin: No rashes, No breakdown, - - extensive scarring on left leg from necrotising fasciitis Musculoskeletal: No Tenderness to Palpation of Joints or Extremities Lymphatic: No Cervical, Supraclavicular, or Inguinal Adenopathy Neurological: Cranial nerves II-XII grossly intact, Neuro grossly intact, Motor Exam 5/5 strength throughout Psych/Mental Status: Normal Affect, Appropriate, Alert and oriented to time, place, person, mood and affect Laboratory Results 12/29/19 18:30: WBC 5.4, RBC 5.12, Hgb 14.0, Hct 42.3, MCV 82.6, MCH 27.3, MCHC 33.1, RDW Std Deviation 47.5 H, RDW Coeff of Sahra 15.9 H, Plt Count 211, MPV 11.4, Immature Gran % (Auto) 0.400, Neut % (Auto) 80.8 H, Lymph % (Auto) 9.2 L, Lea % (Auto) 6.8, Eos % (Auto) 2.4, Baso % (Auto) 0.4, Absolute Neuts (auto) 4.4, Absolute Lymphs (auto) 0.50 L, Nucleated RBC % 0, Differential Comment COMMENT 12/29/19 18:30: Sodium Cancelled, Potassium Cancelled, Chloride Cancelled, Carbon Dioxide Cancelled, Anion Gap Cancelled, BUN Cancelled, Creatinine Cancelled, Estim Creat Clear Calc Cancelled, Est GFR (MDRD) Af Amer Cancelled, Est GFR (MDRD) Non-Af Cancelled, BUN/Creatinine Ratio Cancelled, Glucose Cancelled, Calcium Cancelled, Total Bilirubin Cancelled, AST Cancelled, ALT Cancelled, Alkaline Phosphatase Cancelled, Total Protein Cancelled, Albumin Cancelled, Globulin Cancelled, Albumin/Globulin Ratio Cancelled 12/29/19 19:40: Sodium 134 L, Potassium 4.3, Chloride 103, Carbon Dioxide 20.0 L , Anion Gap 11, BUN 65 H, Creatinine 5.18 H, Estim Creat Clear Calc 13.38, Est GFR (MDRD) Af Amer 12 L, Est GFR (MDRD) Non-Af 10 L, BUN/Creatinine Ratio 12.5, Glucose 249 H, Calcium 9.0, Total Bilirubin 0.60, AST 11 L, ALT 9 L, Alkaline Phosphatase 53, Total Protein 7.0, Albumin 3.0 L, Globulin 4.0, Albumin/Globulin Ratio 0.8 L Diagnostic Data Abdomen CT 12/29/19 18:09 IMPRESSION: No acute abnormality. Severe renal atrophy. Grossly normal appearance of the right lower quadrant renal transplant. Stable fibroid uterus. Electronically Signed: Mikey Álvarez MD at 20:13 EDT , Service support , Current Medications Sodium Chloride () 1,000 mls @ 1,000 mls/hr IV .Q1H ONE Stop: 12/29/19 22:13 Last Admin: 12/29/19 21:26 Dose: 1,000 mls/hr Documented by: Assessment/Plan All Active Problems (Last Reviewed 11/20/19 @ 00:[address] Aldo Smith MD) Diabetic ketoacidosis (Acute) Urinary tract infection (Acute) Abdominal pain, vomiting, and diarrhea (Acute) Nausea (Acute) Acute kidney injury superimposed on chronic kidney disease (Acute) Legionella pneumonia (Resolved) NEL (acute kidney injury) (Acute) 39 y/o admitted with a complaint of abdominal pain, diarrhea and vomiting. 1. Acute gastroenteritis * patient thinks it was because of fish she ate on Saturday * admit to med surg * check stool for enteric pathogens and ova and parasites; check C Diff * hydrate with IVF NS @ 150cc/hr * keep on clear liquids for now until diarrhea gets better * 2. NEL on CKD * Creatinine is 5.18 with a baseline of 2-3 * Likely prerenal due to gastroenteritis. * check Fena * she had a renal USG on 11/20/2019 which showed atrophic bilateral [place] kidneys and right renal transplant with findings suggestive of renal parenchymal disease. * will therefore defer on getting another USG now * Check tacrolimus level * Hydrate with IV fluid normal saline at 150 cc/h. Consult nephrology. * 3. Type 2 diabetes mellitus: * Hold long-acting insulin detemir 15 units nightly for now due to diarrhea and vomiting. * Insulin sliding scale. * Accu-Cheks AC at bedtime. 4. Hypertension: On carvedilol and nifedipine. * * 5. History of kidney transplant due to diabetes mellitus * On tacrolimus, mycophenolate and chronic prednisone. * discussed with patient's canceling machine operator Dr Cam by phone, he recommends to hold mycophenolate and tacrolimus tonight. He will reviewe pateitn tomorrow and decide about continuing the 2 meds * continue chronic prednisone * Check tacrolimus level. * DVT prophylaxis: Lovenox renal dose CODE STATUS: Full code * Patient counseled extensively about different types of CODE STATUS including full code, DNR CCA and DNR CCA. Patient elects to be full code. * Total [id number] time 16 minutes. Inpatient E&M: 89485 Init Hosp L3 Procedures: 41926 Advncd Care Plan 30 Min
[2019-12-29] MEDS: 0.9% Normal Saline 1,000 ML 150 ML IV (22:21)
[2019-12-29 22:33] VITALS: BP 156/72; PULSE 79; RESP 18; TEMP 37.1; O2SAT 98
[2019-12-29 22:44] VITALS: BMI 26.6
[2019-12-29 22:50] VITALS: BMI 26.6
--- NOTE | 2019-12-29 23:07 | NURSING ---
pt's blood glucose was 253. pt checked against her free style which stated blood glucose was 226.
[2019-12-29] MEDS: Insulin Lispro 100 UNIT/ML INSULN.PEN SC (23:08)
[2019-12-29] MEDS: NIFEdipine 30 MG Tablet PO (23:08)
[2019-12-29] MEDS: Gabapentin 300 MG Capsule PO (23:08)
[2019-12-29] MEDS: Carvedilol 25 MG Tablet PO (23:08)
[2019-12-29 23:40] LABS: Bedside Glucose 253 mg/dL (70-110)
[2019-12-30 02:26] LABS: Mucous, Urine 0 SEEN /hpf (<or=2+)
[2019-12-30 02:29] LABS: Color, Urine Yellow (Yellow); Glucose, Dipstick 50 mg/dl (Normal); Ketone-Dipstick 5 mg/dl (Negative); Leukocyte Esterase-Dipstick Negative /ul (Negative); Nitrite-Dipstick Negative (Negative); Occult Blood-Urine 10 /ul (Negative); Protein-Dipstick 500 mg/dl (Negative); Specific Gravity, Urine 1.025 (1.002-1.030); Urine Bilirubin Dipstick Negative (Negative); Urine Clarity Clear (Clear); Urine Urobilinogen Normal (Normal)
[2019-12-30 02:36] LABS: Urine Sodium 24 mmol/L (Not Establ.)
[2019-12-30 02:37] LABS: White Blood Cells 0-5 SEEN /hpf (0-5)
[2019-12-30 02:38] LABS: Bacteria 1+ /hpf (None Seen)
[2019-12-30 02:39] LABS: Red Blood Cells-Urine 0-5 SEEN /hpf (0-5)
[2019-12-30 02:40] LABS: Squamous Epithelial Cells - UA 5-10 SEEN /hpf (5-10)
[2019-12-30 02:41] LABS: Amorphous Sediment RARE
[2019-12-30 04:39] VITALS: BP 125/64; PULSE 78; RESP 18; TEMP 36.6; O2SAT 100
[2019-12-30] MEDS: 0.9% Normal Saline 1,000 ML 150 ML IV ×3 (04:46→18:03)
[2019-12-30] MEDS: Acetaminophen 500 MG Tablet 1000 MG PO ×2 (04:47→14:00)
[2019-12-30 06:06] LABS: Absolute Neutrophil Count 3.2 X10^3/uL (2.0-7.7); Basophil# 0.04 X10^3/uL; Basophil% 0.8 % (0-1); Eosinophil# 0.02 X10^3/uL; Eosinophils% 0.4 % (0-5); Hematocrit 35.3 % (37-47); Hemoglobin 11.7 g/dL (12.0-15.0); Lymphocyte % 18.4 % (19-41); Mean Corp Hgb Conc 33.1 g/dL (32-36); Mean Corpuscular Hgb 27.9 pg (27.0-32.0); Mean Platelet Vol. 12.1 fl (6.2-12.0); Monocyte# 0.69 X10^3/uL; Monocyte% 14.1 % (0-10); NRBC Flagged by Analyzer 0 % (0-5); Neutrophil # 3.22 X10^3/uL (2.7-7.7); Neutrophil % 66.1 % (47-70); Platelet Count 170 K/mm3 (150-450); RBC Distribution Width SD 48.5 fl (35.1-43.9); White Blood Count 4.9 K/mm3 (4.4-11.0)
[2019-12-30 06:18] LABS: Anion Gap 10 (5-15); BUN 66 mg/dL (7-18); BUN/Creat Ratio 13.5 RATIO (10-20); Calcium,Total 8.3 mg/dL (8.5-10.1); Chloride 105 mmol/L (98-107); Creatinine, Serum 4.89 mg/dL (0.55-1.02); EST Glomerular Filtration Rate 10 mL/min (>60); Est Glom Filt Rate - Afr Amer 13 mL/min (>60); Estimated Creatinine Clearance 14.17 ml/min; Glucose 186 mg/dL (74-106); Potassium 3.7 mmol/L (3.5-5.1); Sodium Level 133 mmol/L (136-145)
--- NOTE | 2019-12-30 06:39 | NURSING ---
pt blood sugar is 167 via free style maykel device.
--- NOTE | 2019-12-30 08:38 | PCM.PROGNOTE ---
Patient Problems: Active and Suspected Problems (Last Updated 12/30/19 @ 08:[address] Ofelia Spangler MD) Acute kidney injury superimposed on chronic kidney disease (Acute) Subjective: Chief complaint: Follow-up after admission for acute kidney injury on top of stage IV chronic kidney disease. Patient seen and examined. No acute events overnight. Abdominal pain improved as well as nausea and vomiting. She still having diarrhea. Denies fever or chills. Her vital signs are stable. - Physical Exam Vitals/I&O's: Vital Signs Temp Pulse Resp BP Pulse Ox 98 F 78 18 125/64 H 100 12/30/19 04:39 12/30/19 04:39 12/30/19 04:39 12/30/19 04:39 12/30/19 04:39 Oxygen Delivery Method Room Air Weight: 164 lb 14.492 oz Body Mass Index (BMI) 26.6 Finger Stick Blood Glucose 111 Intake and Output for Last 24 Hours 12/28/19 12/29/19 12/30/19 23:59 23:59 23:59 Intake Total 1316.67 / 1316.67 1162.5 / 1162.5 Balance 1316.67 / 1316.67 1162.5 / 1162.5 General: Alert, Oriented x3, Cooperative, No apparent distress HEENT: Atraumatic, PERRLA, EOMI, Normocephalic Oral: Moist Mucosa, No Gingival or Mucosal Lesions/ Ulcerations Neck: Supple, No JVD, Negative Carotid Bruits, Trachea Midline, Thyroid Normal Size and Texture Lungs: Clear to auscultation, Normal air movement, No rhonchi, No wheeze, No rales Cardiovascular: Regular rate, Regular Rhythm, Normal S1, Normal S2, PMI Normal Abdomen: Bowel Sounds Present, Soft, Non-Distended, No Hepato-splenomegaly, Tender - Right side abdominal tenderness, no guarding or rigidity. Extremities: No clubbing, No cyanosis, No edema Skin: No rashes, No breakdown Lymphatic: No Cervical, Supraclavicular, or Inguinal Adenopathy Neurological: Cranial nerves II-XII grossly intact, Neuro grossly intact Psych/Mental Status: Normal Affect, Appropriate, Alert and oriented to time, place, person, mood and affect Microbiology Past 72 Hours 12/29/19 22:34 Stool C. difficile DNA Amplification - Final Laboratory Results 12/29/19 18:30: WBC 5.4, RBC 5.12, Hgb 14.0, Hct 42.3, MCV 82.6, MCH 27.3, MCHC 33.1, RDW Std Deviation 47.5 H, RDW Coeff of Sahra 15.9 H, Plt Count 211, MPV 11.4, Immature Gran % (Auto) 0.400, Neut % (Auto) 80.8 H, Lymph % (Auto) 9.2 L, Starr % (Auto) 6.8, Eos % (Auto) 2.4, Baso % (Auto) 0.4, Absolute Neuts (auto) 4.4, Absolute Lymphs (auto) 0.50 L, Nucleated RBC % 0, Differential Comment COMMENT 12/29/19 18:30: Sodium Cancelled, Potassium Cancelled, Chloride Cancelled, Carbon Dioxide Cancelled, Anion Gap Cancelled, BUN Cancelled, Creatinine Cancelled, Estim Creat Clear Calc Cancelled, Est GFR (MDRD) Af Amer Cancelled, Est GFR (MDRD) Non-Af Cancelled, BUN/Creatinine Ratio Cancelled, Glucose Cancelled, Calcium Cancelled, Total Bilirubin Cancelled, AST Cancelled, ALT Cancelled, Alkaline Phosphatase Cancelled, Total Protein Cancelled, Albumin Cancelled, Globulin Cancelled, Albumin/Globulin Ratio Cancelled 12/29/19 18:30: Tacrolimus Pending 12/29/19 19:40: Sodium 134 L, Potassium 4.3, Chloride 103, Carbon Dioxide 20.0 L, Anion Gap 11, BUN 65 H, Creatinine 5.18 H, Estim Creat Clear Calc 13.38, Est GFR (MDRD) Af Amer 12 L, Est GFR (MDRD) Non-Af 10 L, BUN/Creatinine Ratio 12.5, Glucose 249 H, Calcium 9.0, Total Bilirubin 0.60, AST 11 L, ALT 9 L, Alkaline Phosphatase 53, Total Protein 7.0, Albumin 3.0 L, Globulin 4.0, Albumin/Globulin Ratio 0.8 L 12/29/19 23:05: POC Glucose 253 H 12/30/19 02:15: Urine Creatinine 262.00 12/30/19 02:15: Urine Color Yellow, Urine Clarity Clear, Urine pH 5.0, Ur Specific [place] 1.025, Urine Protein 500 H, Urine Glucose (UA) 50 H, Urine Ketones 5 H, Urine Occult Blood 10 H, Urine Nitrite Negative, Urine Bilirubin Negative, Urine Urobilinogen Normal, Ur Leukocyte Esterase Negative, Urine RBC 0-5 SEEN, Urine WBC 0-5 SEEN, Ur Squamous Epith Cells 5-10 SEEN, Amorphous Sediment RARE, Urine Bacteria 1+, Urine Mucus 0 SEEN 12/30/19 02:15: Ur Random Sodium 24 12/30/19 05:45: WBC 4.9, RBC 4.20, Hgb 11.7 L, Hct 35.3 L, MCV 84.0, MCH 27.9, MCHC 33.1, RDW Std Deviation 48.5 H, RDW Coeff of Sahra 16.0 H, Plt Count 170, MPV 12.1 H, Immature Gran % (Auto) 0.200, Neut % (Auto) 66.1, Lymph % (Auto) 18.4 L, Starr % (Auto) 14.1 H, Eos % (Auto) 0.4, Baso % (Auto) 0.8, Absolute Neuts (auto) 3.2, Absolute Lymphs (auto) 0.90, Nucleated RBC % 0 12/30/19 05:45: Sodium 133 L, Potassium 3.7, Chloride 105, Carbon Dioxide 18.0 L, Anion Gap 10, BUN 66 H, Creatinine 4.89 H, Estim Creat Clear Calc 14.17, Est GFR (MDRD) Af Amer 13 L, Est GFR (MDRD) Non-Af 10 L, BUN/Creatinine Ratio 13.5, Glucose 186 H, Calcium 8.3 L Clinical Impression(s) from Imaging Studies Abdomen CT 12/29/19 18:09 IMPRESSION: No acute abnormality. Severe renal atrophy. Grossly normal appearance of the right lower quadrant renal transplant. Stable fibroid uterus. Electronically Signed: Mikey Álvarez MD at 20:13 EDT , Service support , Current Medications Acetaminophen (Tylenol) 1,000 mg PO Q6H PRN PRN PRN Reason: Pain (1-10) or Fever Last Admin: 12/30/19 04:47 Dose: 1,000 mg Documented by: Albuterol Sulfate (Ventolin Aerosols) 2.5 mg INHALATION Q4H PRN PRN PRN Reason: shortness of breath/wheezing Carvedilol (Coreg) 25 mg PO BID [facility] Last Admin: 12/29/19 23:08 Dose: 25 mg Documented by: Dextrose (D50w Syringe) 0 gm IV X1 PRN; Protocol PRN Reason: Hypoglycemia Enoxaparin Sodium (Lovenox) 30 mg SC DAILY [facility] Gabapentin (Neurontin) 300 mg PO QHS [facility] Last Admin: 12/29/19 23:08 Dose: 300 mg Documented by: Glucagon () 1 mg IM .X1 PRN PRN Reason: Hypoglycemia Sodium Chloride () 1,000 mls @ 150 mls/hr IV .Q6H40M [facility] Stop: 12/30/19 18:12 Last Admin: 12/30/19 04:46 Dose: 150 mls/hr Documented by: Sodium Chloride () 250 mls @ 15 mls/hr IV .[id number] PRN PRN Reason: Saline Flush Insulin Human Lispro (Humalog Kwikpen (Bkc)) 0 unit SC ACHS [facility]; Protocol Last Admin: 12/30/19 06:38 Dose: Not Given Documented by: Nifedipine (Procardia Xl) 30 mg PO BID [facility] Last Admin: 12/29/19 23:08 Dose: 30 mg Documented by: Nutritional Formula (Lactose Free) (Glucerna Shake) 120 ml PO 4X/DAY [facility] Ondansetron HCl (Zofran) 4 mg IV Q8H PRN PRN PRN Reason: NAUSEA/VOMITING Polyethylene Glycol (Miralax) 17 gm PO DAILY PRN PRN PRN Reason: laxative effect [facility] () [facility] Sodium Chloride () 10 - 40 ml IV UD PRN PRN Reason: SALINE FLUSH Zolpidem Tartrate (Ambien (Generic)) 5 mg PO QHS PRN PRN Reason: SLEEP Medical Necessity - Tobacco Use Smoking Status: Former smoker Assessment/Plan All Active Problems (Last Updated 12/30/19 @ 08:[address] Ofelia Spangler MD) Acute kidney injury superimposed on chronic kidney disease (Acute) This is a 39 years old female patient presented to the emergency room because of abdominal pain, nausea, vomiting and diarrhea and she was found to have acute kidney injury on top of stage IV chronic kidney disease in the setting of history of renal transplant. #1 acute kidney injury on top of stage IV chronic kidney disease: Probably due to dehydration from the gastroenteritis. Baseline creatinine has been around 2 to 3 mg/dL. Admission creatinine was 5.1, came down to 4.89 today. Patient is on IV fluids. Stool for C. difficile was negative. Stool for enteric pathogens is pending. Her vital signs are stable. Nephrology consulted, awaiting recommendations. Plan to continue same treatment, repeat CBC and BMP tomorrow morning. #2 abdominal pain/nausea/vomiting/diarrhea: Likely due to gastroenteritis, viral. Patient was on antibiotics couple weeks ago after she had cyst removed from her leg. Stool for C. difficile was negative. Stool for enteric pathogen is pending. Vital signs are stable. Plan as above. #3 status post kidney transplant: With worsening kidney function. Nephrology consulted. Nephrology commended to hold tacrolimus and mycophenolate, continue prednisone. #4 type 1 diabetes mellitus: ADA diet, Accu-Cheks, insulin sliding scale, hold insulin detemir. #5 hypertension: Blood pressure stable, continue Coreg and nifedipine. #6 gastroparesis: Could be contributing to her symptoms. She is on IV fluids and IV Zofran. #7 peripheral neuropathy: Continue gabapentin. #8 DVT prophylaxis: Discontinue subcu Lovenox, start subcu heparin. Mahi disclaimer Inpatient E&M: 01469 Subs Hosp L2
[2019-12-30 09:15] VITALS: BP 147/65; PULSE 77; RESP 16; TEMP 36.8; O2SAT 98
[2019-12-30] MEDS: Carvedilol 25 MG Tablet PO ×2 (09:22→21:45)
[2019-12-30] MEDS: NIFEdipine 30 MG Tablet PO ×2 (09:22→21:45)
[2019-12-30] MEDS: predniSONE 5 MG Tablet PO (09:22)
--- NOTE | 2019-12-30 10:45 | CASEMGMT ---
RN CM Face to Face with patient for initial transition planning/care coordination assessment. RN CM introduced self and role at [facility]. Patient lying in bed, alert and oriented. Patient willing to participate in assessment and is able to answer all questions appropriately. Care providers, pharmacy, and demographics verified. Patient wishes to discharge home, denies need for home health at this time. Patient states he has no further needs or concerns at this time. CM to follow for discharge planning needs that may arise. PCP: Veronica Specialists: Magalys, nephrology; Gopal, endocrinology; Lang, [employer] Preferred Pharmacy: [facility] Prescription Benefit: yes Living Will/HPOA: none LNOK: Fiance Living Arrangements: [facility] in a first floor apartment with 1 step to enter. Patient is independent at home. Transportation: [facility] DME/HHC: Patient has shower chair, cane, walker, wheelchair, and glucometer at home. Disposition Plan: Patient to discharge home with family support and follow-up plans in place. Marlena CARDENAS, RN, CM
[2019-12-30 13:57] VITALS: BP 136/57; PULSE 78; RESP 16; TEMP 36.7; O2SAT 99
[2019-12-30] MEDS: Insulin Lispro 100 UNIT/ML INSULN.PEN SC ×2 (15:44→21:46)
--- NOTE | 2019-12-30 15:49 | NURSING ---
Pt blood sugar via free style maykel device at 0700 was 167, at 1100 was 175 and at 1600 was 290.
--- NOTE | 2019-12-30 15:53 | PCM.CONS.R ---
Problem List (1) Acute kidney injury superimposed on chronic kidney disease Status: Acute (2) Chronic renal disease, stage IV Status: Chronic (3) Renal transplant recipient Status: Chronic Consultation - Renal 12/30/19 PCP/ Referring MD: Requesting physician: [] Primary care physician: Dr. Aster Martin MD Reason for Consultation:: NEL - History of Present Illness History of Present Illness: The patient is a 39 year old F patient who was admitted via the ED on 12/21/2019 with a complaint of abdominal pain, diarrhea and vomiting which have been going on for about 3 days prior to admission. Patient has a history of right renal transplant done in 2011 at [facility] in [facility]. She states she ate fish andres on Saturday about 3 days prior to presentation. Subsequently she started having serious abdominal pain which was mainly right-sided and cramping with no aggravating or relieving factors. She also had profuse diarrhea and vomiting and said she was actually having diarrhea in her bed and soiling her sheets. She also had numerous episodes of vomiting daily. She had no assisted fever or chills and was not able to keep anything down at all. She had no shortness of breath, chest pain or burning with urination. Review of symptoms otherwise negative. - Allergies Allergies: Allergies furosemide [From Lasix] Allergy (Verified 12/29/19 17:12) Hives - Current Medications Current Medications: Current Medications Acetaminophen (Tylenol) 1,000 mg PO Q6H PRN PRN PRN Reason: Pain (1-10) or Fever Last Admin: 12/30/19 14:00 Dose: 1,000 mg Documented by: Albuterol Sulfate (Ventolin Aerosols) 2.5 mg INHALATION Q4H PRN PRN PRN Reason: shortness of breath/wheezing Carvedilol (Coreg) 25 mg PO BID [facility] Last Admin: 12/30/19 09:22 Dose: 25 mg Documented by: Dextrose (D50w Syringe) 0 gm IV X1 PRN; Protocol PRN Reason: Hypoglycemia Gabapentin (Neurontin) 300 mg PO QHS [facility] Last Admin: 12/29/19 23:08 Dose: 300 mg Documented by: Glucagon () 1 mg IM .X1 PRN PRN Reason: Hypoglycemia Heparin Sodium (Porcine) (Heparin Na) 5,000 unit SC Q12 [facility] Last Admin: 12/30/19 09:24 Dose: Not Given Documented by: Sodium Chloride () 1,000 mls @ 150 mls/hr IV .Q6H40M [facility] Stop: 12/30/19 18:12 Last Admin: 12/30/19 11:22 Dose: 150 mls/hr Documented by: Sodium Chloride () 250 mls @ 15 mls/hr IV .[id number] PRN PRN Reason: Saline Flush Insulin Human Lispro (Humalog Kwikpen (Bkc)) 0 unit SC ACHS [facility]; Protocol Last Admin: 12/30/19 15:44 Dose: 4 units Documented by: Nifedipine (Procardia Xl) 30 mg PO BID [facility] Last Admin: 12/30/19 09:22 Dose: 30 mg Documented by: Nutritional Formula (Lactose Free) (Glucerna Shake) 120 ml PO 4X/DAY [facility] Last Admin: 12/30/19 11:01 Dose: Not Given Documented by: Ondansetron HCl (Zofran) 4 mg IV Q8H PRN PRN PRN Reason: NAUSEA/VOMITING Polyethylene Glycol (Miralax) 17 gm PO DAILY PRN PRN PRN Reason: laxative effect Prednisone () 5 mg PO DAILYCM [facility] Last Admin: 12/30/19 09:22 Dose: 5 mg Documented by: Sodium Chloride () 10 - 40 ml IV UD PRN PRN Reason: SALINE FLUSH Tacrolimus (Tacrolimus) 2 mg PO BID [facility] Zolpidem Tartrate (Ambien (Generic)) 5 mg PO QHS PRN PRN Reason: SLEEP - Past Medical History Past Medical History (Chronic Problems): Chronic Problems (Last Updated 12/30/19 @ 08:[address] Ofelia Spangler MD) Chronic renal disease, stage IV (Chronic) Hypertension (Chronic) Gastroparesis (Chronic) Renal transplant recipient (Chronic) Legionnaires' disease (Chronic) Neuropathy (Chronic) Cataracts, bilateral (Chronic) Anemia (Chronic) Seasonal allergies (Chronic) DM type 1 (diabetes mellitus, type 1) (Chronic) - Past Surgical History Surgical History: appendectomy, - - Status post kidney transplant, poor wound debridement, diverting sigmoid colostomy on 07/06/2017, reversed on 07/07/2017, percutaneous tracheostomy, no longer has, left TMA - Social History Smoking Status: Former smoker Alcohol: None Drugs: None - Family History Maternal Family History: Family History (Last Reviewed 11/20/19 @ 00:[address] Aldo Smith MD) Mother Asthma Hypertension Father Myocardial infarction History Items: Diabetes, Hypertension Paternal Family History: Family History (Last Reviewed 11/20/19 @ 00:[address] Aldo Smith MD) Mother Asthma Hypertension Father Myocardial infarction History Items: No pertinent history Review of Systems HEENT: Denies: Head Aches, Sinus Congestion, Sinus Drainage Cardiovascular: Denies: Chest Pain, Palpitations Respiratory: Denies: Cough, Shortness of breath at rest, Sputum production Gastrointestinal: Reports: Diarrhea, Nausea, Vomiting. Denies: Abdominal Pain Genitourinary: Denies: Dysuria Musculoskeletal: Denies: Joint Pain, Joint Tenderness Skin: Denies: Rash, Wounds Neurological: Denies: Numbness, Tingling, Focal weakness Psychiatric: Denies: Anxiety, Depression, Homicidal Ideations, Suicidal Ideations Hematologic/ Lymphatic: Denies: Easy Bruising, Easy Bleeding Patient Problems: Active and Suspected Problems (Last Updated 12/30/19 @ 08:[address] Ofelia Spangler MD) Acute kidney injury superimposed on chronic kidney disease (Acute) - Physical Exam Vitals/I&O's: Vital Signs Temp Pulse Resp BP Pulse Ox 98.1 F 78 16 136/57 H 99 12/30/19 13:57 12/30/19 13:57 12/30/19 13:57 12/30/19 13:57 12/30/19 13:57 Oxygen Delivery Method Room Air Weight: 74.8 kg Body Mass Index (BMI) 26.6 Finger Stick Blood Glucose 111 Intake and Output for Last 24 Hours 12/28/19 12/29/19 12/30/19 23:59 23:59 23:59 Intake Total 1316.67 / 1316.67 2390.0 / 2390.0 Output Total 400 / 400 Balance 1316.67 / 1316.67 1989.0 / 1989.0 General: Alert, Oriented x3, Cooperative HEENT: Atraumatic, PERRLA, EOMI, Normocephalic Neck: Supple, No JVD, Negative Carotid Bruits Lungs: Clear to auscultation, Normal air movement Cardiovascular: Regular rate, No murmurs Abdomen: Bowel Sounds Present, Soft, Non Tender Extremities: No edema, Capillary Refill Less than 3 Seconds Skin: No rashes, No breakdown Musculoskeletal: No Tenderness to Palpation of Joints or Extremities Neurological: Cranial nerves II-XII grossly intact Psych/Mental Status: Normal Affect, Appropriate Microbiology Past 72 Hours 12/29/19 22:34 Stool Enteric Bacteriology - Final 12/29/19 22:34 Stool C. difficile DNA Amplification - Final Laboratory Results 12/29/19 18:30: WBC 5.4, RBC 5.12, Hgb 14.0, Hct 42.3, MCV 82.6, MCH 27.3, MCHC 33.1, RDW Std Deviation 47.5 H, RDW Coeff of Sahra 15.9 H, Plt Count 211, MPV 11.4, Immature Gran % (Auto) 0.400, Neut % (Auto) 80.8 H, Lymph % (Auto) 9.2 L, [place] % (Auto) 6.8, Eos % (Auto) 2.4, Baso % (Auto) 0.4, Absolute Neuts (auto) 4.4, Absolute Lymphs (auto) 0.50 L, Nucleated RBC % 0, Differential Comment COMMENT 12/29/19 18:30: Sodium Cancelled, Potassium Cancelled, Chloride Cancelled, Carbon Dioxide Cancelled, Anion Gap Cancelled, BUN Cancelled, Creatinine Cancelled, Estim Creat Clear Calc Cancelled, Est GFR (MDRD) Af Amer Cancelled, Est GFR (MDRD) Non-Af Cancelled, BUN/Creatinine Ratio Cancelled, Glucose Cancelled, Calcium Cancelled, Total Bilirubin Cancelled, AST Cancelled, ALT Cancelled, Alkaline Phosphatase Cancelled, Total Protein Cancelled, Albumin Cancelled, Globulin Cancelled, Albumin/Globulin Ratio Cancelled 12/29/19 18:30: Tacrolimus Pending 12/29/19 19:40: Sodium 134 L, Potassium 4.3, Chloride 103, Carbon Dioxide 20.0 L, Anion Gap 11, BUN 65 H, Creatinine 5.18 H, Estim Creat Clear Calc 13.38, Est GFR (MDRD) Af Amer 12 L, Est GFR (MDRD) Non-Af 10 L, BUN/Creatinine Ratio 12.5, Glucose 249 H, Calcium 9.0, Total Bilirubin 0.60, AST 11 L, ALT 9 L, Alkaline Phosphatase 53, Total Protein 7.0, Albumin 3.0 L, Globulin 4.0, Albumin/Globulin Ratio 0.8 L 12/29/19 23:05: POC Glucose 253 H 12/30/19 02:15: Urine Creatinine 262.00 12/30/19 02:15: Urine Color Yellow, Urine Clarity Clear, Urine pH 5.0, Ur Specific [place] 1.025, Urine Protein 500 H, Urine Glucose (UA) 50 H, Urine Ketones 5 H, Urine Occult Blood 10 H, Urine Nitrite Negative, Urine Bilirubin Negative, Urine Urobilinogen Normal, Ur Leukocyte Esterase Negative, Urine RBC 0-5 SEEN, Urine WBC 0-5 SEEN, Ur Squamous Epith Cells 5-10 SEEN, Amorphous Sediment RARE, Urine Bacteria 1+, Urine Mucus 0 SEEN 12/30/19 02:15: Ur Random Sodium 24 12/30/19 05:45: WBC 4.9, RBC 4.20, Hgb 11.7 L, Hct 35.3 L, MCV 84.0, MCH 27.9, MCHC 33.1, RDW Std Deviation 48.5 H, RDW Coeff of Sahra 16.0 H, Plt Count 170, MPV 12.1 H, Immature Gran % (Auto) 0.200, Neut % (Auto) 66.1, Lymph % (Auto) 18.4 L, [place] % (Auto) 14.1 H, Eos % (Auto) 0.4, Baso % (Auto) 0.8, Absolute Neuts (auto) 3.2, Absolute Lymphs (auto) 0.90, Nucleated RBC % 0 12/30/19 05:45: Sodium 133 L, Potassium 3.7, Chloride 105, Carbon Dioxide 18.0 L, Anion Gap 10, BUN 66 H, Creatinine 4.89 H, Estim Creat Clear Calc 14.17, Est GFR (MDRD) Af Amer 13 L, Est GFR (MDRD) Non-Af 10 L, BUN/Creatinine Ratio 13.5, Glucose 186 H, Calcium 8.3 L Current Medications Acetaminophen (Tylenol) 1,000 mg PO Q6H PRN PRN PRN Reason: Pain (1-10) or Fever Last Admin: 12/30/19 14:00 Dose: 1,000 mg Documented by: Albuterol Sulfate (Ventolin Aerosols) 2.5 mg INHALATION Q4H PRN PRN PRN Reason: shortness of breath/wheezing Carvedilol (Coreg) 25 mg PO BID [facility] Last Admin: 12/30/19 09:22 Dose: 25 mg Documented by: Dextrose (D50w Syringe) 0 gm IV X1 PRN; Protocol PRN Reason: Hypoglycemia Gabapentin (Neurontin) 300 mg PO QHS [facility] Last Admin: 12/29/19 23:08 Dose: 300 mg Documented by: Glucagon () 1 mg IM .X1 PRN PRN Reason: Hypoglycemia Heparin Sodium (Porcine) (Heparin Na) 5,000 unit SC Q12 [facility] Last Admin: 12/30/19 09:24 Dose: Not Given Documented by: Sodium Chloride () 1,000 mls @ 150 mls/hr IV .Q6H40M [facility] Stop: 12/30/19 18:12 Last Admin: 12/30/19 11:22 Dose: 150 mls/hr Documented by: Sodium Chloride () 250 mls @ 15 mls/hr IV .[id number] PRN PRN Reason: Saline Flush Insulin Human Lispro (Humalog Kwikpen (Bkc)) 0 unit SC ACHS [facility]; Protocol Last Admin: 12/30/19 15:44 Dose: 4 units Documented by: Nifedipine (Procardia Xl) 30 mg PO BID [facility] Last Admin: 12/30/19 09:22 Dose: 30 mg Documented by: Nutritional Formula (Lactose Free) (Glucerna Shake) 120 ml PO 4X/DAY [facility] Last Admin: 12/30/19 11:01 Dose: Not Given Documented by: Ondansetron HCl (Zofran) 4 mg IV Q8H PRN PRN PRN Reason: NAUSEA/VOMITING Polyethylene Glycol (Miralax) 17 gm PO DAILY PRN PRN PRN Reason: laxative effect Prednisone () 5 mg PO DAILYCM [facility] Last Admin: 12/30/19 09:22 Dose: 5 mg Documented by: Sodium Chloride () 10 - 40 ml IV UD PRN PRN Reason: SALINE FLUSH Tacrolimus (Tacrolimus) 2 mg PO BID [facility] Zolpidem Tartrate (Ambien (Generic)) 5 mg PO QHS PRN PRN Reason: SLEEP Assessment/Plan All Active Problems (Last Updated 12/30/19 @ 08:[address] Ofelia Spangler MD) Acute kidney injury superimposed on chronic kidney disease (Acute) NEL CKD 3/4 Kidney txp history of kidney txp at [place]. baseline creatinine was around 2.0 to 2.2 or so. she was recently admitted here with GI symptoms are sustained NEL. improved. last value was 2.1 as of 12/11/19. now admitted with cr of 5.[address] abd reviewed. no hydronephrosis UA shows proteinuria which is not new NEL is likely volume depletion related continue fluids on tacrolimus, cellcept and prednisone at home tacro - last levels were ok. skipped last nights dose. levels pending. resume oral dose tonight hold cellcept for now in view of GI symptoms continue prednisone as before cr is better today
[2019-12-30] MEDS: Tacrolimus Anhydrous 1 MG Capsule 2 MG PO (17:03)
[2019-12-30 21:39] VITALS: BP 142/69; PULSE 81; RESP 18; TEMP 36.6; O2SAT 99
--- NOTE | 2019-12-30 21:42 | NURSING ---
blood glucose is 243 via pt's free style maykel
[2019-12-30] MEDS: Gabapentin 300 MG Capsule PO (21:45)
[2019-12-31] MEDS: 0.9% Normal Saline 1,000 ML 150 ML IV ×4 (00:25→20:34)
[2019-12-31 03:27] VITALS: BP 147/77; PULSE 80; RESP 18; TEMP 36.9; O2SAT 100
[2019-12-31] MEDS: Insulin Lispro 100 UNIT/ML INSULN.PEN SC ×4 (06:41→22:04)
--- NOTE | 2019-12-31 06:44 | NURSING ---
blood glucose is 199 via pt's free style device
[2019-12-31 06:49] LABS: Absolute Lymphocyte Count 0.78 X10^3/uL (0.83-4.51); Absolute Neutrophil Count 2.8 X10^3/uL (2.0-7.7); Basophil# 0.04 X10^3/uL; Basophil% 0.9 % (0-1); Eosinophil# 0.02 X10^3/uL; Eosinophils% 0.5 % (0-5); Hematocrit 33.2 % (37-47); Hemoglobin 10.6 g/dL (12.0-15.0); Lymphocyte # 0.78 X10^3/ul (4.0); Lymphocyte % 17.8 % (19-41); Mean Corp Hgb Conc 31.9 g/dL (32-36); Mean Corpuscular Hgb 27.5 pg (27.0-32.0); Mean Platelet Vol. 12.3 fl (6.2-12.0); Monocyte# 0.69 X10^3/uL; Monocyte% 15.8 % (0-10); NRBC Flagged by Analyzer 0 % (0-5); Neutrophil # 2.83 X10^3/uL (2.7-7.7); Neutrophil % 64.8 % (47-70); Platelet Count 172 K/mm3 (150-450); RBC Distribution Width CV 15.8 % (11.6-14.6); RBC Distribution Width SD 48.4 fl (35.1-43.9); Red Blood Count 3.86 M/mm3 (4.2-5.4); White Blood Count 4.4 K/mm3 (4.4-11.0)
[2019-12-31 07:05] LABS: Anion Gap 10 (5-15); BUN 52 mg/dL (7-18); BUN/Creat Ratio 15.2 RATIO (10-20); Calcium,Total 7.7 mg/dL (8.5-10.1); Chloride 112 mmol/L (98-107); Creatinine, Serum 3.42 mg/dL (0.55-1.02); EST Glomerular Filtration Rate 16 mL/min (>60); Est Glom Filt Rate - Afr Amer 19 mL/min (>60); Estimated Creatinine Clearance 20.27 ml/min; Glucose 225 mg/dL (74-106); Potassium 3.8 mmol/L (3.5-5.1); Sodium Level 139 mmol/L (136-145)
[2019-12-31 08:13] VITALS: BP 145/72; PULSE 76; RESP 18; TEMP 36.7; O2SAT 100
[2019-12-31] MEDS: Carvedilol 25 MG Tablet PO ×2 (08:21→22:03)
[2019-12-31] MEDS: predniSONE 5 MG Tablet PO (08:21)
[2019-12-31] MEDS: NIFEdipine 30 MG Tablet PO ×2 (08:22→22:02)
[2019-12-31] MEDS: Tacrolimus Anhydrous 1 MG Capsule 2 MG PO ×2 (08:23→22:02)
--- NOTE | 2019-12-31 11:10 | NURSING ---
pt checked blood sugar. 353
[2019-12-31] MEDS: Glucerna Shake 120 ML LIQUID PO (11:12)
--- NOTE | 2019-12-31 11:33 | PCM.PN.REN ---
Patient Problems: Active and Suspected Problems (Last Updated 12/30/19 @ 08:[address] Ofelia Spangler MD) Acute kidney injury superimposed on chronic kidney disease (Acute) Subjective: no new complaints nausea and vmitings are resolved tolerated PO diet ok - Physical Exam Vitals/I&O's: Vital Signs Temp Pulse Resp BP Pulse Ox 98.0 F 76 18 145/72 H 100 12/31/19 08:13 12/31/19 08:13 12/31/19 08:13 12/31/19 08:13 12/31/19 08:13 Oxygen Delivery Method Room Air Weight: 74.8 kg Body Mass Index (BMI) 26.6 Finger Stick Blood Glucose 111 Intake and Output for Last 24 Hours 12/29/19 12/30/19 12/31/19 23:59 23:59 23:59 Intake Total 1316.67 / 1316.67 3890.0 / 4290.0 2410 / 2410 Output Total 500 / 1300 3250 / 3250 Balance 1316.67 / 1316.67 3390.0 / 2990.0 -840 / -840 General: Alert, Oriented x3, Cooperative HEENT: Atraumatic, PERRLA, EOMI, Normocephalic Neck: Supple, No JVD, Negative Carotid Bruits Lungs: Clear to auscultation, Normal air movement Cardiovascular: Regular rate, No murmurs Abdomen: Bowel Sounds Present, Soft, Non Tender Extremities: No edema, Capillary Refill Less than 3 Seconds Skin: No rashes, No breakdown Musculoskeletal: No Tenderness to Palpation of Joints or Extremities Neurological: Cranial nerves II-XII grossly intact Psych/Mental Status: Normal Affect, Appropriate Microbiology Past 72 Hours 12/29/19 22:34 Stool Enteric Bacteriology - Final 12/29/19 22:34 Stool C. difficile DNA Amplification - Final Laboratory Results 12/31/19 06:18: WBC 4.4, RBC 3.86 L, Hgb 10.6 L, Hct 33.2 L, MCV 86.0, MCH 27.5, MCHC 31.9 L, RDW Std Deviation 48.4 H, RDW Coeff of Sahra 15.8 H, Plt Count 172, MPV 12.3 H, Immature Gran % (Auto) 0.200, Neut % (Auto) 64.8, Lymph % (Auto) 17.8 L, [place] % (Auto) 15.8 H, Eos % (Auto) 0.5, Baso % (Auto) 0.9, Absolute Neuts (auto) 2.8, Absolute Lymphs (auto) 0.78 L, Nucleated RBC % 0 12/31/19 06:18: Sodium 139, Potassium 3.8, Chloride 112 H, Carbon Dioxide 17.0 L, Anion Gap 10, BUN 52 H, Creatinine 3.42 H, Estim Creat Clear Calc 20.27, Est GFR (MDRD) Af Amer 19 L, Est GFR (MDRD) Non-Af 16 L, BUN/Creatinine Ratio 15.2, Glucose 225 H, Calcium 7.7 L Current Medications Acetaminophen (Tylenol) 1,000 mg PO Q6H PRN PRN PRN Reason: Pain (1-10) or Fever Last Admin: 12/30/19 14:00 Dose: 1,000 mg Documented by: Albuterol Sulfate (Ventolin Aerosols) 2.5 mg INHALATION Q4H PRN PRN PRN Reason: shortness of breath/wheezing Carvedilol (Coreg) 25 mg PO BID [facility] Last Admin: 12/31/19 08:21 Dose: 25 mg Documented by: Dextrose (D50w Syringe) 0 gm IV X1 PRN; Protocol PRN Reason: Hypoglycemia Gabapentin (Neurontin) 300 mg PO QHS [facility] Last Admin: 12/30/19 21:45 Dose: 300 mg Documented by: Glucagon () 1 mg IM .X1 PRN PRN Reason: Hypoglycemia Heparin Sodium (Porcine) (Heparin Na) 5,000 unit SC Q12 [facility] Last Admin: 12/31/19 08:22 Dose: Not Given Documented by: Sodium Chloride () 250 mls @ 15 mls/hr IV .[id number] PRN PRN Reason: Saline Flush Sodium Chloride () 1,000 mls @ 150 mls/hr IV .Q6H40M [facility] Last Admin: 12/31/19 06:39 Dose: 150 mls/hr Documented by: Insulin Human Lispro (Humalog Kwikpen (Bkc)) 0 unit SC ACHS [facility]; Protocol Last Admin: 12/31/19 11:13 Dose: 6 units Documented by: Nifedipine (Procardia Xl) 30 mg PO BID [facility] Last Admin: 12/31/19 08:22 Dose: 30 mg Documented by: Nutritional Formula (Lactose Free) (Glucerna Shake) 120 ml PO 4X/DAY [facility] Last Admin: 12/31/19 11:12 Dose: 120 ml Documented by: Ondansetron HCl (Zofran) 4 mg IV Q8H PRN PRN PRN Reason: NAUSEA/VOMITING Polyethylene Glycol (Miralax) 17 gm PO DAILY PRN PRN PRN Reason: laxative effect Prednisone () 5 mg PO DAILYCM [facility] Last Admin: 12/31/19 08:21 Dose: 5 mg Documented by: Sodium Chloride () 10 - 40 ml IV UD PRN PRN Reason: SALINE FLUSH Tacrolimus (Prograf) 2 mg PO BID [facility] Last Admin: 12/31/19 08:23 Dose: 2 mg Documented by: Zolpidem Tartrate (Ambien (Generic)) 5 mg PO QHS PRN PRN Reason: SLEEP Medical Necessity - Tobacco Use Smoking Status: Former smoker Assessment/Plan All Active Problems (Last Updated 12/30/19 @ 08:[address] Ofelia Spangler MD) Acute kidney injury superimposed on chronic kidney disease (Acute) NEL CKD 3/4 Kidney txp history of kidney txp at [place]. baseline creatinine was around 2.0 to 2.2 or so. she was recently admitted here with GI symptoms are sustained NEL. improved. last value was 2.1 as of 12/11/19. now admitted with cr of 5.1, better at 3.4 today severe GI symptoms CT abd reviewed. no hydronephrosis UA shows proteinuria which is not new NEL is likely volume depletion related continue fluids on tacrolimus, cellcept and prednisone at home tacro - last levels were ok. levels pending. resume oral dose tonight hold cellcept for now in view of GI symptoms continue prednisone as before cr is better today will likely stop cellcept and try switching to azathioprine
[2019-12-31] MEDS: 0.9% Saline Lock 10 ML Syringe IV (13:24)
[2019-12-31 14:02] VITALS: BP 160/75; PULSE 80; RESP 18; TEMP 36.8; O2SAT 100
--- NOTE | 2019-12-31 14:07 | PN_ITS ---
Patient Problems: Active and Suspected Problems (Last Updated 12/30/19 @ 08:[address] Ofelia Spangler MD) Acute kidney injury superimposed on chronic kidney disease (Acute) Subjective: Feels better, no nausea and vomiting. No issues overnight. Vitals/I&O's: Vital Signs Temp Pulse Resp BP Pulse Ox 98.2 F 80 18 160/75 H 100 12/31/19 14:02 12/31/19 14:02 12/31/19 14:02 12/31/19 14:02 12/31/19 14:02 Oxygen Delivery Method Room Air Weight: 164 lb 14.492 oz Body Mass Index (BMI) 26.6 Finger Stick Blood Glucose 111 Intake and Output for Last 24 Hours 12/29/19 12/30/19 12/31/19 23:59 23:59 23:59 Intake Total 1316.67 / 1316.67 3890.0 / 4290.0 3410 / 3410 Output Total 500 / 1300 3250 / 3250 Balance 1316.67 / 1316.67 3390.0 / 2990.0 160 / 160 General: Alert, Oriented x3, Cooperative, No apparent distress HEENT: Atraumatic, PERRLA, EOMI, Normocephalic Oral: Moist Mucosa Neck: Supple, No JVD Lungs: Clear to auscultation, Normal air movement, No rhonchi, No wheeze, No rales, Diminished Cardiovascular: Regular rate, Regular Rhythm, Normal S1, Normal S2, No murmurs Abdomen: Soft, Non Tender, Non-Distended, No Hepato-splenomegaly Extremities: No edema, Capillary Refill Less than 3 Seconds Skin: No rashes, No breakdown Neurological: Neuro grossly intact, Sensory exam intact to light touch and pain Psych/Mental Status: Normal Affect, Appropriate Microbiology Past 72 Hours 12/29/19 22:34 Stool Enteric Bacteriology - Final 12/29/19 22:34 Stool C. difficile DNA Amplification - Final Laboratory Results 12/31/19 06:18: WBC 4.4, RBC 3.86 L, Hgb 10.6 L, Hct 33.2 L, MCV 86.0, MCH 27.5, MCHC 31.9 L, RDW Std Deviation 48.4 H, RDW Coeff of Sahra 15.8 H, Plt Count 172, MPV 12.3 H, Immature Gran % (Auto) 0.200, Neut % (Auto) 64.8, Lymph % (Auto) 17.8 L, [place] % (Auto) 15.8 H, Eos % (Auto) 0.5, Baso % (Auto) 0.9, Absolute Neuts (auto) 2.8, Absolute Lymphs (auto) 0.78 L, Nucleated RBC % 0 12/31/19 06:18: Sodium 139, Potassium 3.8, Chloride 112 H, Carbon Dioxide 17.0 L , Anion Gap 10, BUN 52 H, Creatinine 3.42 H, Estim Creat Clear Calc 20.27, Est GFR (MDRD) Af Amer 19 L, Est GFR (MDRD) Non-Af 16 L, BUN/Creatinine Ratio 15.2, Glucose 225 H, Calcium 7.7 L Current Medications Acetaminophen (Tylenol) 1,000 mg PO Q6H PRN PRN PRN Reason: Pain (1-10) or Fever Last Admin: 12/30/19 14:00 Dose: 1,000 mg Documented by: Albuterol Sulfate (Ventolin Aerosols) 2.5 mg INHALATION Q4H PRN PRN PRN Reason: shortness of breath/wheezing Carvedilol (Coreg) 25 mg PO BID [facility] Last Admin: 12/31/19 08:21 Dose: 25 mg Documented by: Dextrose (D50w Syringe) 0 gm IV X1 PRN; Protocol PRN Reason: Hypoglycemia Gabapentin (Neurontin) 300 mg PO QHS [facility] Last Admin: 12/30/19 21:45 Dose: 300 mg Documented by: Glucagon () 1 mg IM .X1 PRN PRN Reason: Hypoglycemia Heparin Sodium (Porcine) (Heparin Na) 5,000 unit SC Q12 [facility] Last Admin: 12/31/19 08:22 Dose: Not Given Documented by: Sodium Chloride () 250 mls @ 15 mls/hr IV .[id number] PRN PRN Reason: Saline Flush Sodium Chloride () 1,000 mls @ 150 mls/hr IV .Q6H40M [facility] Last Admin: 12/31/19 14:04 Dose: 150 mls/hr Documented by: Insulin Human Lispro (Humalog Kwikpen (Bkc)) 0 unit SC ACHS [facility]; Protocol Last Admin: 12/31/19 11:13 Dose: 6 units Documented by: Nifedipine (Procardia Xl) 30 mg PO BID [facility] Last Admin: 12/31/19 08:22 Dose: 30 mg Documented by: Nutritional Formula (Lactose Free) (Glucerna Shake) 120 ml PO 4X/DAY [facility] Last Admin: 12/31/19 13:24 Dose: Not Given Documented by: Ondansetron HCl (Zofran) 4 mg IV Q8H PRN PRN PRN Reason: NAUSEA/VOMITING Polyethylene Glycol (Miralax) 17 gm PO DAILY PRN PRN PRN Reason: laxative effect Prednisone () 5 mg PO DAILYCM [facility] Last Admin: 12/31/19 08:21 Dose: 5 mg Documented by: Sodium Chloride () 10 - 40 ml IV UD PRN PRN Reason: SALINE FLUSH Last Admin: 12/31/19 13:24 Dose: 10 ml Documented by: Tacrolimus (Prograf) 2 mg PO BID [facility] Last Admin: 12/31/19 08:23 Dose: 2 mg Documented by: Zolpidem Tartrate (Ambien (Generic)) 5 mg PO QHS PRN PRN Reason: SLEEP STROKE Vital Signs/Narrative: Vital Signs Temp Pulse Resp BP Pulse Ox 12/31/19 14:02 98.2 F 80 18 160/75 H 100 Medical Necessity - Tobacco Use Smoking Status: Former smoker Assessment/Plan All Active Problems (Last Updated 12/30/19 @ 08:[address] Ofelia Spangler MD) Acute kidney injury superimposed on chronic kidney disease (Acute) 1. NEL on CKD 4 secondary to dehydration from viral gastroenteritis/history of renal transplant -Nausea and vomiting has resolved as has diarrhea -Denies any abdominal pain -Renal function is improving back to baseline creatinine of 2.8, currently 3.42 -Continue with IV fluids as well as her chronic medications for her renal transplant, nephrology may transition her from CellCept to azathioprine 2. Type 1 diabetes/gastroparesis/peripheral neuropathy -She is eating okay, can restart her long-acting insulin -Continue with sliding scale insulin and Accu-Cheks AC at bedtime -Continue with her gabapentin 3. HTN -Blood pressure is stable -Continue with her home blood pressure medication DVT: Heparin Inpatient E&M: 14786 Subs Hosp L2
[2019-12-31 20:37] VITALS: BP 156/87; PULSE 81; RESP 18; TEMP 36.8; O2SAT 100
--- NOTE | 2019-12-31 22:01 | NURSING ---
blood sugar 273mg/dL on patient's device.
[2019-12-31] MEDS: Gabapentin 300 MG Capsule PO (22:02)
[2020-01-01] MEDS: 0.9% Normal Saline 1,000 ML 150 ML IV (03:13)
[2020-01-01 03:17] VITALS: BP 150/79; PULSE 75; RESP 16; TEMP 36.6; O2SAT 98
--- NOTE | 2020-01-01 06:37 | NURSING ---
patient's glucose on personal meter 77mg/dL
[2020-01-01 07:25] LABS: Anion Gap 5 (5-15); BUN 35 mg/dL (7-18); BUN/Creat Ratio 14.5 RATIO (10-20); Calcium,Total 7.7 mg/dL (8.5-10.1); Chloride 118 mmol/L (98-107); Creatinine, Serum 2.41 mg/dL (0.55-1.02); EST Glomerular Filtration Rate 24 mL/min (>60); Est Glom Filt Rate - Afr Amer 29 mL/min (>60); Estimated Creatinine Clearance 28.76 ml/min; Glucose 95 mg/dL (74-106); Potassium 3.3 mmol/L (3.5-5.1); Sodium Level 143 mmol/L (136-145)
[2020-01-01] MEDS: predniSONE 5 MG Tablet PO (08:47)
[2020-01-01] MEDS: Carvedilol 25 MG Tablet PO (08:47)
[2020-01-01] MEDS: Tacrolimus Anhydrous 1 MG Capsule 2 MG PO (08:47)
[2020-01-01] MEDS: NIFEdipine 30 MG Tablet PO (08:48)
[2020-01-01 09:03] VITALS: BP 153/75; PULSE 75; RESP 16; TEMP 37; O2SAT 100
--- NOTE | 2020-01-01 11:11 | DCINST_ITS ---
- Discharge Diagnoses Current Active Problems: Current Active and Chronic Problems (Last Reviewed 11/20/19 @ 00:[address] Aldo Smith MD) Acute kidney injury superimposed on chronic kidney disease (Acute) Chronic renal disease, stage IV (Chronic) Hypertension (Chronic) Renal transplant recipient (Chronic) You will use the following diet at home:: Calorie/Carbohydrate Controlled (specify 1200, 1400, etc) Your food should be the consistency of: Regular Your liquids should be the consistency of: Regular/Thin Discharge Activity: Return to Normal Activity Call your doctor if you observe: Fever of 101 or Higher, Shortness of breath, Dizziness, Fainting spells, Swelling in the ankles, Chest pain, Increased palpitations (irregular heartbeat) Allergies/Adverse Reactions: Allergies furosemide [From Lasix] Allergy (Verified 12/29/19 17:12) Hives Medications to take at Discharge Gabapentin [Neurontin] 300 mg PO QHS 01/20/18 Tacrolimus Anhydrous [Prograf] 2 mg PO BID 01/20/18 Insulin Aspart [Novolog Flexpen] 8 - 18 units SUBCUT TIDCM 01/27/18 Prednisone 5 mg PO DAILY 02/20/19 metoclopramide HCl 5 mg tablet 5 mg PO QACHS PRN #30 tab 05/18/19 carvedilol 25 mg tablet 25 mg PO BID #180 tab 11/10/19 insulin detemir U-100 100 unit/mL (3 mL) subcutaneous pen 15 unit SC QHS 11/26/19 zolpidem 10 mg tablet 10 mg PO QHS PRN #30 tab 12/09/19 Acetaminophen [Tylenol] 1,000 mg PO Q6H PRN PRN 12/29/19 Albuterol Sulfate [Albuterol Sulfate Hfa] 2 puff INHALATION Q6H PRN PRN 12/29/19 Nifedipine [Nifedipine ER] 30 mg PO BID 12/29/19 Polyethylene Glycol 3350 17 g PO DAILY PRN PRN 12/29/19 Primary Care Physician: Aster Martin MD [Primary Care Provider] - Please follow up with your Primary Care Physician in: 3-5 days Test Results: Test results from this visit will be discussed in further detail at your follow- up appointment, if applicable. Please Follow Up With: Giancarlo Cam MD When: Next week
--- NOTE | 2020-01-01 12:16 | DS.PCM_ITS ---
Discharge Date and Diagnosis Date of Admission: 12/29/19 Date of Discharge: 01/01/20 - Secondary Discharge Diagnosis Chronic Problems: Chronic Problems (Last Updated 12/30/19 @ 08:[address] Ofelia Spangler MD) Chronic renal disease, stage IV (Chronic) Hypertension (Chronic) Gastroparesis (Chronic) Renal transplant recipient (Chronic) Legionnaires' disease (Chronic) Neuropathy (Chronic) Cataracts, bilateral (Chronic) Anemia (Chronic) Seasonal allergies (Chronic) DM type 1 (diabetes mellitus, type 1) (Chronic) Hospital Course and Treatment Imaging Results: CT Abd/pelvis: IMPRESSION: No acute abnormality. Severe renal atrophy. Grossly normal appearance of the right lower quadrant renal transplant. Stable fibroid uterus. Consults: Nephrology Operations: None Procedures: None Summary of Care Provided: Per HPI: The patient is a 39 year old F with a PMH as outlined who was admitted via the ED on 12/21/2019 with a complaint of abdominal pain, diarrhea and vomiting which have been going on for about 3 days prior to admission. Patient has a history of right renal transplant done in 2011 at [facility] in [facility]. She has been on tacrolimus since then. Kidney transplant was done on account of ESRD from diabetes. She states she ate fish andres on Saturday about 3 days prior to presentation. Subsequently she started having serious abdominal pain which was mainly right-sided and cramping with no aggravating or relieving factors. She also had profuse diarrhea and vomiting and said she was actually having diarrhea in her bed and soiling her sheets. She also had numerous episodes of vomiting daily. She had no assisted fever or chills and was not able to keep anything down at all. She had no shortness of breath, chest pain or burning with urination. Review of symptoms otherwise negative. Concerns were not abating so she decided coming to the ED today. In the ED, vitals showed temperature of 97.4 Fahrenheit with blood pressure 122/69, pulse rate of 82 respiratory rate of 16. She was saturating at 99% on room air. Chemistry showed sodium of 134 with potassium of 4.3 and bicarb of 20 with anion gap of 11. Creatinine was 5.18. Glucose was 249 and CBC showed hemoglobin of 14 with WBC of 5.4 and platelets of 211. Abdominopelvic CT scan done showed no acute abnormality but showed severe renal atrophy and grossly normal appearance of the right lower quadrant renal transplant as well as stable fibroid uterus. She has been admitted to be managed for NEL on CKD in a patient with kidney transplant and acute gastroenteritis. Hospital Course: 1. NEL on CKD 4 secondary to dehydration from viral gastroenteritis/history of renal [id number] female who had a renal transplant in 2011 presents with NEL secondary to diarrhea as well as nausea and vomiting. Her nausea vomiting and diarrhea have all resolved and her NEL has also returned to baseline. Her creatinine today is 2.48 with a baseline creatinine of 2.8. Nephrology was consulted and they discontinued her mycophenolate and recommended that she continue on the prednisone as well as tacrolimus. She will follow-up with them as an outpatient potentially be started on azathioprine. She is feeling much better today and would like to go home. I did discuss with her the risk benefits of going home and she expressed understanding. 2. Type 1 diabetes with gastroparesis and peripheral neuropathy, HTN all complicate her care her home medications were evaluating continued where appropriate. - Physical Exam Vitals/I&O's: Vital Signs Temp Pulse Resp BP Pulse Ox 98.6 F 75 16 153/75 H 100 01/01/20 09:03 01/01/20 09:03 01/01/20 09:03 01/01/20 09:03 01/01/20 09:03 Oxygen Delivery Method Room Air Weight: 164 lb 14.492 oz Body Mass Index (BMI) 26.6 Finger Stick Blood Glucose 111 Intake and Output for Last 24 Hours 12/30/19 12/31/19 01/01/20 23:59 23:59 23:59 Intake Total 3890.0 / 4290.0 5185 / 5285 2197.5 / 2197.5 Output Total 500 / 1300 5475 / 5475 Balance 3390.0 / 2990.0 -290 / -190 2197.5 / 2197.5 General: Alert, Oriented x3, Cooperative, No apparent distress HEENT: Atraumatic, PERRLA, EOMI, Normocephalic Oral: Moist Mucosa Neck: Supple, No JVD Lungs: Clear to auscultation, Normal air movement, No rhonchi, No wheeze, No rales, Diminished Cardiovascular: Regular rate, Regular Rhythm, Normal S1, Normal S2, No murmurs Abdomen: Soft, Non Tender, Non-Distended, No Hepato-splenomegaly Extremities: No edema, Capillary Refill Less than 3 Seconds Skin: No rashes, No breakdown Neurological: Neuro grossly intact, Sensory exam intact to light touch and pain Psych/Mental Status: Normal Affect, Appropriate Microbiology Past 72 Hours 12/29/19 22:34 Stool Enteric Bacteriology - Final 12/29/19 22:34 Stool C. difficile DNA Amplification - Final Laboratory Results 01/01/20 06:56: Sodium 143, Potassium 3.3 L, Chloride 118 H, Carbon Dioxide 20.0 L, Anion Gap 5, BUN 35 H, Creatinine 2.41 H, Estim Creat Clear Calc 28.76, Est GFR (MDRD) Af Amer 29 L, Est GFR (MDRD) Non-Af 24 L, BUN/Creatinine Ratio 14.5, Glucose 95, Calcium 7.7 L Discharge Activity: Return to Normal Activity Call your doctor if you observe: Fever of 101 or Higher, Shortness of breath, Dizziness, Fainting spells, Swelling in the ankles, Chest pain, Increased palpitations (irregular heartbeat) Home Medications: Medications to take at Discharge Gabapentin [Neurontin] 300 mg PO QHS 01/20/18 Tacrolimus Anhydrous [Prograf] 2 mg PO BID 01/20/18 Insulin Aspart [Novolog Flexpen] 8 - 18 units SUBCUT TIDCM 01/27/18 Prednisone 5 mg PO DAILY 02/20/19 metoclopramide HCl 5 mg tablet 5 mg PO QACHS PRN #30 tab 05/18/19 carvedilol 25 mg tablet 25 mg PO BID #180 tab 11/10/19 insulin detemir U-100 100 unit/mL (3 mL) subcutaneous pen 15 unit SC QHS 11/26/19 zolpidem 10 mg tablet 10 mg PO QHS PRN #30 tab 12/09/19 Acetaminophen [Tylenol] 1,000 mg PO Q6H PRN PRN 12/29/19 Albuterol Sulfate [Albuterol Sulfate Hfa] 2 puff INHALATION Q6H PRN PRN 12/29/19 Nifedipine [Nifedipine ER] 30 mg PO BID 12/29/19 Polyethylene Glycol 3350 17 g PO DAILY PRN PRN 12/29/19 Primary Care Physician: Aster Martin MD [Primary Care Provider] - Please follow up with your Primary Care Physician in: 3-5 days Please Follow Up With: Giancarlo Cam MD When: Next week Disposition: Home Minutes spent on discharge:: 35 Patient Condition:: Stable Medical Necessity - Tobacco Use Smoking Status: Former smoker Meaningful Use Info Meaningful Use Diagnoses (Choose all that apply): None applicable Inpatient E&M: [id number] Disch Hosp
--- NOTE | 2020-01-01 12:28 | PN.RENAL_ITS ---
Subjective: no new complaints - Physical Exam Vitals/I&O's: Vital Signs Temp Pulse Resp BP Pulse Ox 98.6 F 75 16 153/75 H 100 01/01/20 09:03 01/01/20 09:03 01/01/20 09:03 01/01/20 09:03 01/01/20 09:03 Oxygen Delivery Method Room Air Weight: 74.8 kg Body Mass Index (BMI) 26.6 Finger Stick Blood Glucose 111 Intake and Output for Last 24 Hours 12/30/19 12/31/19 01/01/20 23:59 23:59 23:59 Intake Total 3890.0 / 4290.0 5185 / 5285 2197.5 / 2197.5 Output Total 500 / 1300 5475 / 5475 Balance 3390.0 / 2990.0 -290 / -190 2197.5 / 2197.5 General: Alert, Oriented x3, Cooperative HEENT: Atraumatic, PERRLA, EOMI, Normocephalic Neck: Supple, No JVD, Negative Carotid Bruits Lungs: Clear to auscultation, Normal air movement Cardiovascular: Regular rate, No murmurs Abdomen: Bowel Sounds Present, Soft, Non Tender Extremities: No edema, Capillary Refill Less than 3 Seconds Skin: No rashes, No breakdown Musculoskeletal: No Tenderness to Palpation of Joints or Extremities Neurological: Cranial nerves II-XII grossly intact Psych/Mental Status: Normal Affect, Appropriate Microbiology Past 72 Hours 12/29/19 22:34 Stool Enteric Bacteriology - Final 12/29/19 22:34 Stool C. difficile DNA Amplification - Final Laboratory Results 01/01/20 06:56: Sodium 143, Potassium 3.3 L, Chloride 118 H, Carbon Dioxide 20.0 L, Anion Gap 5, BUN 35 H, Creatinine 2.41 H, Estim Creat Clear Calc 28.76, Est GFR (MDRD) Af Amer 29 L, Est GFR (MDRD) Non-Af 24 L, BUN/Creatinine Ratio 14.5, Glucose 95, Calcium 7.7 L Medical Necessity - Tobacco Use Smoking Status: Former smoker Assessment/Plan All Active Problems (Last Updated 12/30/19 @ 08:[address] Ofelia Spangler MD) Acute kidney injury superimposed on chronic kidney disease (Acute) NEL CKD 3/4 Kidney txp history of kidney txp at [place]. baseline creatinine was around 2.0 to 2.2 or so. she was recently admitted here with GI symptoms are sustained NEL. improved. last value was 2.1 as of 12/11/19. now admitted with cr of 5.1, better at 2.4 today severe GI symptoms CT abd reviewed. no hydronephrosis UA shows proteinuria which is not new NEL is likely volume depletion related on tacrolimus, cellcept and prednisone at home tacro - last levels were ok. levels pending. 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
[2020-01-02 12:22] LABS: Tacrolimus (FK506) 12.5 ng/mL (2.0-20.0)
--- NOTE | 2020-01-04 15:11 | CASEMGMT ---
TERRI PINZON Discharge Follow-up Phone Call: KARELY: Jovan Strata: 3 Call Date: 01/04/2020 Discharge Date: 01/01/2020 Time of Call: 1510 Admitting Diagnosis: NEL, gastroenteritis Attempted discharge follow-up call to pt. Voicemail received and nondescript message left requesting a return call. Rodrigo Odonnell RN CM.
== END 2020-01-01 11:47 | disposition home or self-care (01) | DRG 392 ==
LOC: ED 21:14 → MS3 22:18
PROVIDERS: Hospitalist; Admitting Provider Student in an Organized Health Care Education/Training Program; Emergency Provider Emergency Medicine; PCP Internal Medicine; Referring Provider Student in an Organized Health Care Education/Training Program; Visit Provider Family Medicine
DX: A08.4 Viral intestinal infection, unspecified (principal); N17.9 Acute kidney failure, unspecified; I12.0 Hypertensive chronic kidney disease with stage 5 chronic kidney disease or end stage renal disease; Z94.0 Kidney transplant status; N18.4 Chronic kidney disease, stage 4 (severe); E86.0 Dehydration; E10.22 Type 1 diabetes mellitus with diabetic chronic kidney disease; E10.43 Type 1 diabetes mellitus with diabetic autonomic (poly)neuropathy; K31.84 Gastroparesis; E78.00 Pure hypercholesterolemia, unspecified; E10.65 Type 1 diabetes mellitus with hyperglycemia; E10.42 Type 1 diabetes mellitus with diabetic polyneuropathy; Z87.891 Personal history of nicotine dependence
CPT/HCPCS: 36415; 74176; 80048; 80053; 80197; 81001; 82570; 82962; 84300; 85025; 87493; 87506; 97802; 99283; J7030; J7040; A4216

== ENCOUNTER → 2020-01-22 13:01 | Outpatient (CLI) | payer MEDICARE, MEDICAID, SELFPAY ==
[2019-12-29 22:44] VITALS: BMI 26.6
[2020-01-22 15:18] LABS: Hematocrit 36.7 % (37-47); Hemoglobin 11.4 g/dL (12.0-15.0); Mean Corp Hgb Conc 31.1 g/dL (32-36); Mean Corpuscular Hgb 27.9 pg (27.0-32.0); Mean Corpuscular Volume 89.7 fL (81-99); Mean Platelet Vol. 10.6 fl (6.2-12.0); Platelet Count 313 K/mm3 (150-450); RBC Distribution Width CV 16.2 % (11.6-14.6); RBC Distribution Width SD 52.1 fl (35.1-43.9); Red Blood Count 4.09 M/mm3 (4.2-5.4); White Blood Count 3.6 K/mm3 (4.4-11.0)
[2020-01-22 15:32] LABS: Anion Gap 5 (5-15); BUN 36 mg/dL (7-18); BUN/Creat Ratio 14.7 RATIO (10-20); Calcium,Total 9.4 mg/dL (8.5-10.1); Chloride 111 mmol/L (98-107); Creatinine, Serum 2.45 mg/dL (0.55-1.02); EST Glomerular Filtration Rate 23 mL/min (>60); Est Glom Filt Rate - Afr Amer 28 mL/min (>60); Glucose 123 mg/dL (74-106); Sodium Level 139 mmol/L (136-145)
[2020-01-25 21:35] LABS: Tacrolimus (FK506) 7.2 ng/mL (2.0-20.0)
== END ==
PROVIDERS: PCP Internal Medicine; Referring Provider Internal Medicine Nephrology; Visit Provider Internal Medicine Nephrology
DX: Z94.0 Kidney transplant status (principal)
CPT/HCPCS: 36415; 80048; 80197; 85027

== ENCOUNTER → 2020-04-01 09:00 | Outpatient (CLI) | payer MEDICARE, MEDICAID, SELFPAY ==
[2020-04-01 09:00] VITALS: BMI 27.2
[2020-04-01 10:30] LABS: Absolute Lymphocyte Count 1.06 X10^3/uL (0.83-4.51); Absolute Neutrophil Count 3.3 X10^3/uL (2.0-7.7); Basophil# 0.03 X10^3/uL; Basophil% 0.6 % (0-1); Eosinophil# 0.07 X10^3/uL; Eosinophils% 1.4 % (0-5); Hematocrit 39.2 % (37-47); Hemoglobin 12.6 g/dL (12.0-15.0); Lymphocyte # 1.06 X10^3/ul (4.0); Lymphocyte % 21.5 % (19-41); Mean Corp Hgb Conc 32.1 g/dL (32-36); Mean Corpuscular Hgb 27.8 pg (27.0-32.0); Mean Corpuscular Volume 86.3 fL (81-99); Mean Platelet Vol. 11.3 fl (6.2-12.0); Monocyte# 0.51 X10^3/uL; Monocyte% 10.3 % (0-10); NRBC Flagged by Analyzer 0 % (0-5); Neutrophil # 3.26 X10^3/uL (2.7-7.7); Platelet Count 161 K/mm3 (150-450); RBC Distribution Width CV 15.4 % (11.6-14.6); RBC Distribution Width SD 48.6 fl (35.1-43.9); Red Blood Count 4.54 M/mm3 (4.2-5.4); White Blood Count 4.9 K/mm3 (4.4-11.0)
[2020-04-01 10:53] LABS: Anion Gap 7 (5-15); BUN 38 mg/dL (7-18); BUN/Creat Ratio 12.5 RATIO (10-20); Calcium,Total 8.8 mg/dL (8.5-10.1); Chloride 106 mmol/L (98-107); Creatinine, Serum 3.05 mg/dL (0.55-1.02); EST Glomerular Filtration Rate 18 mL/min (>60); Est Glom Filt Rate - Afr Amer 22 mL/min (>60); Glucose 333 mg/dL (74-106); Potassium 3.9 mmol/L (3.5-5.1); Sodium Level 138 mmol/L (136-145)
[2020-04-05 12:11] LABS: Tacrolimus (FK506) 6.3 ng/mL (2.0-20.0)
== END ==
PROVIDERS: PCP Internal Medicine; Referring Provider Internal Medicine Nephrology; Visit Provider Internal Medicine Nephrology
DX: N18.30 Chronic kidney disease, stage 3 unspecified (principal); Z94.0 Kidney transplant status
CPT/HCPCS: 36415; 80048; 80197; 85025

== ENCOUNTER → 2020-04-21 06:02 | Outpatient (CLI) | payer MEDICARE, MEDICAID, SELFPAY ==
[2020-04-01 09:00] VITALS: BMI 27.2
[2020-04-21 07:38] LABS: Protein, Urine (Random) 376.1 mg/dL (<11.9); Protein:Creat Ratio 3761 mg/g CRE (0-200)
[2020-04-21 07:49] LABS: Anion Gap 2 (5-15); BUN 33 mg/dL (7-18); BUN/Creat Ratio 12.5 RATIO (10-20); Calcium,Total 8.4 mg/dL (8.5-10.1); Chloride 113 mmol/L (98-107); Creatinine, Serum 2.64 mg/dL (0.55-1.02); EST Glomerular Filtration Rate 21 mL/min (>60); Est Glom Filt Rate - Afr Amer 26 mL/min (>60); Glucose 215 mg/dL (74-106); Potassium 4.1 mmol/L (3.5-5.1); Sodium Level 140 mmol/L (136-145)
== END ==
PROVIDERS: PCP Internal Medicine; Referring Provider Internal Medicine Nephrology; Visit Provider Internal Medicine Nephrology
DX: N18.4 Chronic kidney disease, stage 4 (severe) (principal)
CPT/HCPCS: 36415; 80048; 82570; 84156; 86665

== ENCOUNTER → 2020-08-19 05:58 | Outpatient (CLI) | payer MEDICARE, MEDICAID, SELFPAY ==
[2020-06-13 08:32] VITALS: BMI 27.6
[2020-08-19 08:13] LABS: Hemoglobin A1c 7.8 % (3.8-5.6)
[2020-08-19 08:24] LABS: Vitamin D,25 Hydroxy 14.6 ng/mL
[2020-08-19 08:38] LABS: ALB/GLOB Ratio 0.7 RATIO (0.9-2.4); AST(SGOT) 6 U/L (15-37); Alanine Aminotransfer ALT/SGPT 16 U/L (13-56); Alkaline Phosphatase 87 U/L (45-117); Anion Gap 8 (5-15); BUN 42 mg/dL (7-18); BUN/Creat Ratio 12.8 RATIO (10-20); Calcium,Total 8.4 mg/dL (8.5-10.1); Chloride 111 mmol/L (98-107); Cholesterol 281 mg/dL (200); Creatinine, Serum 3.28 mg/dL (0.55-1.02); EST Glomerular Filtration Rate 16 mL/min (>60); Est Glom Filt Rate - Afr Amer 20 mL/min (>60); Globulin 4.5 g/dL (2.2-4.2); Glucose 169 mg/dL (74-106); High Density Lipoprotein 47 mg/dL; Potassium 4.1 mmol/L (3.5-5.1); Protein, Total 7.5 g/dL (6.4-8.2); Sodium Level 138 mmol/L (136-145); Thyroid Stim Hormone (TSH) 3.88 uIU/mL (0.358-3.74); Triglycerides 151 mg/dL; Very Low Density Lipoprotein 30 mg/dL (5-40)
== END ==
PROVIDERS: PCP Internal Medicine; Referring Provider Internal Medicine Endocrinology, Diabetes & Metabolism; Visit Provider Internal Medicine Endocrinology, Diabetes & Metabolism
DX: E10.649 Type 1 diabetes mellitus with hypoglycemia without coma (principal); N18.4 Chronic kidney disease, stage 4 (severe); Z79.4 Long term (current) use of insulin
CPT/HCPCS: 36415; 80053; 80061; 82043; 82306; 82570; 83036; 84443

== ENCOUNTER → 2020-09-19 07:51 | Outpatient (CLI) | payer MEDICARE, MEDICAID, SELFPAY ==
[2020-06-13 08:32] VITALS: BMI 27.6
--- NOTE | 2020-09-19 07:53 | BI_ITS ---
MAMMOGRAPHY - BILATERAL SCREENING REASON FOR EXAM: Female, 39 years old. Routine annual screening examination. PERTINENT HISTORY: Grandmother with breast cancer. Aunt with breast cancer. TECHNIQUE: Digital bilateral breast hanna (3D mammographic acquisition) in the CC and MLO projections. 2-D mediolateral oblique (MLO) and craniocaudad (CC) views of both breasts were obtained. CAD: Full Field Digital Mammography with Computer Added Detection was performed. COMPARISON: Comparison is made with prior study 03/05/2019. FINDINGS: Breast Composition: The breasts are heterogeneously dense, which may obscure small masses. There are no dominant masses or suspicious calcifications. No other significant abnormalities are identified. There has been no significant change since the prior study. BI/SCRN MAMM (CAD)W/HANNA BILAT IMPRESSION: Stable bilateral screening mammogram. Yearly follow-up mammogram recommended. (A) ASSESSMENT CATEGORY: BIRADS Category 1: Negative. A letter regarding these results will be sent to the patient by the facility within 30 days. Approximately 10% of breast cancers are not detected by mammography. A normal mammogram should not delay biopsy of a clinically suspicious abnormality. [id number] Electronically Signed: Roger Griffith MD at 9:25 EDT , Service support ,
== END ==
PROVIDERS: PCP Internal Medicine; Referring Provider Obstetrics & Gynecology Gynecology; Visit Provider Obstetrics & Gynecology Gynecology
DX: Z12.31 Encounter for screening mammogram for malignant neoplasm of breast (principal); Z94.0 Kidney transplant status; N76.5 Ulceration of vagina; Z87.42 Personal history of other diseases of the female genital tract
CPT/HCPCS: 77063; 77067

== ENCOUNTER → 2020-11-10 08:23 | Outpatient (CLI) | payer MEDICARE, SELFPAY ==
[2020-06-13 08:32] VITALS: BMI 27.6
[2020-11-10 10:03] LABS: Anion Gap 8 (5-15); BUN 32 mg/dL (7-18); BUN/Creat Ratio 10.7 RATIO (10-20); Calcium,Total 8.6 mg/dL (8.5-10.1); Chloride 112 mmol/L (98-107); EST Glomerular Filtration Rate 18 mL/min (>60); Est Glom Filt Rate - Afr Amer 22 mL/min (>60); Glucose 167 mg/dL (74-106); Potassium 3.6 mmol/L (3.5-5.1); Sodium Level 140 mmol/L (136-145)
== END ==
PROVIDERS: PCP Internal Medicine
DX: T86.10 Unspecified complication of kidney transplant (principal)
CPT/HCPCS: 36415; 80048